=== PATIENT | female | born 1950 | race Caucasian/White ===

== ENCOUNTER → 2017-05-12 10:15 | Outpatient (CLI) | payer MEDICARE, SELFPAY ==
[2017-05-12 13:54] LABS: Hematocrit 39.1 % (37-47); Hemoglobin 12.3 g/dl (12.0-15.0); Mean Corp Hgb Conc 31.5 g/gl (32-36); Mean Corpuscular Hgb 26.5 pg (27.0-32.0); Mean Corpuscular Volume 84.3 fL (81-99); Mean Platelet Vol. 10.5 fl (6.2-12.0); Platelet Count 351 K/mm3 (150-450); RBC Distribution Width CV 15.1 % (11.6-14.6); RBC Distribution Width SD 45.8 fl (35.1-43.9); Red Blood Count 4.64 M/mm3 (4.2-5.4); White Blood Count 6.1 K/mm3 (4.4-11.0)
[2017-05-12 14:02] LABS: Scan Indicated on CBC? Y/N NO
[2017-05-12 14:27] LABS: ALB/GLOB Ratio 0.9 RATIO (0.9-2.4); AST(SGOT) 15 U/L (15-37); Alanine Aminotransfer ALT/SGPT 23 U/L (13-56); Albumin, Serum 3.9 g/dL (3.2-5.0); Alkaline Phosphatase 58 U/L (45-117); Anion Gap 8 (5-15); BUN 17 mg/dL (7-18); BUN/Creat Ratio 18.1 RATIO (10-20); Calcium,Total 10.1 mg/dL (8.5-10.1); Chloride 106 mmol/L (98-107); Cholesterol 153 mg/dL (200); Creatinine, Serum 0.94 mg/dL (0.55-1.02); EST Glomerular Filtration Rate 63 mL/min (>60); Est Glom Filt Rate - Afr Amer 76 mL/min (>60); Globulin 4.3 g/dL (2.2-4.2); Glucose 69 mg/dL (70-110); High Density Lipoprotein 40 mg/dL; Magnesium 2.1 mg/dL (1.6-2.6); Potassium 4.6 mmol/L (3.5-5.1); Protein, Total 8.2 g/dL (6.4-8.2); Sodium Level 139 mmol/L (136-145); Thyroid Stim Hormone (TSH) 1.88 uIU/mL (0.358-3.74); Triglycerides 123 mg/dL; Very Low Density Lipoprotein 25 mg/dL (5-40)
== END ==
PROVIDERS: Family Provider Family Medicine; PCP Family Medicine
DX: Z95.810 Presence of automatic (implantable) cardiac defibrillator (principal); I50.9 Heart failure, unspecified; I48.91 Unspecified atrial fibrillation; I10 Essential (primary) hypertension; I25.9 Chronic ischemic heart disease, unspecified; R06.00 Dyspnea, unspecified
CPT/HCPCS: 36415; 80053; 80061; 83735; 84443; 85027

== ENCOUNTER 2017-05-28 14:32 | Emergency (ER) | payer MEDICARE, SELFPAY ==
[2017-05-28 14:34] VITALS: BP 161/70; PULSE 72; RESP 16; TEMP 36.4; O2SAT 95; BMI 37.3
--- NOTE | 2017-05-28 15:27 | EKG12_ITS ---
Test Reason : NUMB Blood Pressure : / mmHG Vent. Rate : 071 BPM Atrial Rate : 071 BPM P-R Int : 166 ms QRS Dur : 122 ms QT Int : 424 ms P-R-T Axes : 036 -51 083 degrees QTc Int : 460 ms Atrial-sensed ventricular-paced rhythm Biventricular pacemaker detected Abnormal ECG Confirmed by ALEX NUNEZ, MICHAEL ([id number]), technical writer and editor CAROLE LO ([id number]) on 06/01/2017 1:14:09 PM Referred By: DEYA Confirmed By:MICHAEL JOHNSON MD
--- NOTE | 2017-05-28 15:27 | CT_ITS ---
STUDY: CT BRAIN WITHOUT CONTRAST REASON FOR EXAM: Female, 66 years old. Weakness and numbness in left arm RADIATION DOSAGE (If Supplied By Facility): CTDIvol = ( 44.99 ) mGy, DLP = ( 711.75 ) mGycm TECHNIQUE: Transaxial CT imaging of the brain was performed without administration of intravenous contrast material. Individualized dose optimization techniques were used for this CT. COMPARISON: None. FINDINGS: Normal soft tissue structures. Normal calvarium. There is calcification of the cavernous carotids. Normal size ventricles and extra-axial spaces for the patient's age. Mild periventricular white matter ischemic changes. Normal basal ganglia and thalami. Normal brainstem. Normal cerebellum. There is no intracranial hemorrhage. There are no findings of an acute ischemic infarction. There are postsurgical changes of the orbits. Normal visualized paranasal sinuses. CT/Brain/Head without Contrast IMPRESSION: Mild periventricular white matter ischemic change. No evidence for acute bleed. If concern for acute infarct MRI recommended. Electronically Signed: Dl Reyes MD at 16:06 EST , Service support ,
--- NOTE | 2017-05-28 15:47 | ED.DCSUM_ITS ---
- ER Visit Summary Date of Service: 05/28/17 Chief Complaint: Numbness and pain all over History of Present Illness: The patient is a 66 F a history of multiple sclerosis. Patient states she has developed generalized body aches 5 days ago. She denies fever or chills. She does not have URI symptoms. She complains of numbness to her lower lip over the past 5 days that is now spreading to her upper lip. She also complains of numbness to the abdominal wall, left side greater than right. Her left arm feels numb and somewhat weak. She apparently has had similar symptoms with prior MS flares. She called her neurologist at [facility] today and they told her to go to the emergency room. Physical Examination: Vital signs are significant for a blood pressure 161/70, otherwise unremarkable. Patient sitting upright in bed in no acute distress. She is alert and talkative. Head neck examination is grossly unremarkable. Heart is regular rate and rhythm. Lung sounds are clear. Abdomen is soft nontender. Neuro examination significant for decreased sensation to light touch over the right side of her face left arm, and diffusely over the abdominal wall. She has mild weakness noted in the left upper extremity. She has chronic weakness on the right lower extremity. Strong distal pulses are noted throughout. Test Results: CBC and chemistry studies are significant for creatinine 1.33. INR is 2.2. CT head shows mild periventricular white matter ischemic change. No acute bleed. Emergency Department Course and Treatment: Test results were discussed with neurologist on-call for Dr. Hanna, her neurologist. He recommended giving the patient 500 mg Solu-Medrol IV now. They will arrange for the patient to have outpatient infusions of the next couple of days. He did asked that we also obtain a urinalysis. After an extended period of time patient had still not been able to provide a urine sample. Straight cath was performed the patient was discharged home. Urinalysis was positive for infection with positive nitrites, greater than 100 white blood cells, and 4+ bacteria. I called and left a message on the patient's phone to have her call in and notify us of her preferred pharmacy so we can send a prescription. At this time I have not yet heard back from her. I will leave a message with the charge nurse to have the patient recalled tomorrow morning. Treatment Plan: [] Disposition: Discharge Impression: 1. MS exacerbation 2. Cystitis This note was generated with [employer] dictation software. It may contain incorrect words, spelling, and punctuation that were not noted in review of the chart prior to signing ED Disposition - Plan for ED Patient: Disposition: Home or Assisted Living Chief Complaint: Other, Pain/Inj Instructions: Discharge Instructions for Multiple Sclerosis Referrals: Jamie Cruz MD [Primary Care Provider] - Additional Instructions: Your neurologist is arranging for you to have outpatient steriod infusions. They will call you tomorrow.
[2017-05-28 15:50] LABS: Absolute Lymphocyte Count 1.91 X10^3/ul (0.83-4.51); Absolute Neutrophil Count 3.1 X10^3/uL (2.0-7.7); Basophil# 0.02 X10^3/uL; Basophil% 0.3 % (0-1); Eosinophil# 0.14 X10^3/uL; Eosinophils% 2.4 % (0-5); Hemoglobin 11.6 g/dl (12.0-15.0); Lymphocyte # 1.91 X10^3/ul (4.0); Lymphocyte % 32.8 % (19-41); Mean Corp Hgb Conc 31.4 g/gl (32-36); Mean Corpuscular Hgb 26.4 pg (27.0-32.0); Mean Corpuscular Volume 84.3 fL (81-99); Mean Platelet Vol. 9.6 fl (6.2-12.0); Monocyte# 0.64 X10^3/uL; Neutrophil % 53.3 % (47-70); Platelet Count 291 K/mm3 (150-450); RBC Distribution Width SD 46.6 fl (35.1-43.9); Red Blood Count 4.39 M/mm3 (4.2-5.4); White Blood Count 5.8 K/mm3 (4.4-11.0)
[2017-05-28 16:00] LABS: POSITIVE COUNT NO; POSITIVE DIFFERENTIAL NO; POSITIVE MORPHOLOGY NO
[2017-05-28 16:28] LABS: Anion Gap 10 (5-15); BUN 23 mg/dL (7-18); BUN/Creat Ratio 17.3 RATIO (10-20); Calcium,Total 10.1 mg/dL (8.5-10.1); Chloride 108 mmol/L (98-107); Creatinine, Serum 1.33 mg/dL (0.55-1.02); EST Glomerular Filtration Rate 42 mL/min (>60); Est Glom Filt Rate - Afr Amer 51 mL/min (>60); Estimated Creatinine Clearance 32.02 ml/min; Glucose 94 mg/dL (74-106); Potassium 3.9 mmol/L (3.5-5.1); Sodium Level 141 mmol/L (136-145)
[2017-05-28 16:41] LABS: International Normalized Ratio 2.2; Prothrombin Time (Protime)PT. 23.9 SECONDS (11.7-14.9)
[2017-05-28 17:13] VITALS: BP 135/52; PULSE 72; RESP 16; O2SAT 95
--- NOTE | 2017-05-28 19:19 | ED.DEP ---
ED Disposition - Plan for ED Patient: Disposition: Home or Assisted Living Chief Complaint: Other, Pain/Inj Instructions: Discharge Instructions for Multiple Sclerosis Referrals: Jamie Cruz MD [Primary Care Provider] - Additional Instructions: Your neurologist is arranging for you to have outpatient steriod infusions. They will call you tomorrow.
[2017-05-28 19:20] LABS: Color, Urine Yellow (Yellow); Glucose, Dipstick Normal (Normal); Ketone-Dipstick Negative (Negative); Leukocyte Esterase-Dipstick 500 /ul (Negative); Mucous, Urine 0 SEEN /hpf (<or=2+); Nitrite-Dipstick Positive (Negative); Occult Blood-Urine 10 /ul (Negative); Protein-Dipstick Negative (Negative); Red Blood Cells-Urine 0 SEEN /hpf (0-5); Specific Gravity, Urine 1.015 (1.002-1.030); Squamous Epithelial Cells - UA 0 SEEN /hpf (5-10); Urine Bilirubin Dipstick Negative (Negative); Urine Clarity Cloudy (Clear); Urine Urobilinogen Normal (Normal)
[2017-05-28 19:27] VITALS: BP 147/73; PULSE 63; RESP 16
[2017-05-28 19:27] LABS: Bacteria 4+ /hpf (None Seen)
[2017-05-28 19:28] LABS: White Blood Cells >100 SEEN /hpf (0-5)
[2017-05-28 19:29] LABS: Transitional Epithelial - Ur 0-5 SEEN /hpf (0-5)
--- NOTE | 2017-06-01 15:56 | ED.DEP ---
ED Disposition - Plan for ED Patient: Disposition: Home or Assisted Living Chief Complaint: Other, Pain/Inj Instructions: Discharge Instructions for Multiple Sclerosis Prescriptions: Cephalexin [Keflex] 500 mg PO Q6 #40 cap Referrals: Jamie Cruz MD [Primary Care Provider] - Additional Instructions: Your neurologist is arranging for you to have outpatient steriod infusions. They will call you tomorrow.
== END 2017-05-28 19:31 | disposition home or self-care (01) ==
PROVIDERS: Emergency Provider Emergency Medicine; Family Provider Family Medicine; PCP Family Medicine
DX: G35 Multiple sclerosis (principal); N30.90 Cystitis, unspecified without hematuria; B96.89 Other specified bacterial agents as the cause of diseases classified elsewhere; E66.9 Obesity, unspecified; Z68.37 Body mass index [BMI] 37.0-37.9, adult; I25.2 Old myocardial infarction; I10 Essential (primary) hypertension; E78.00 Pure hypercholesterolemia, unspecified; K21.9 Gastro-esophageal reflux disease without esophagitis; Z86.73 Personal history of transient ischemic attack (TIA), and cerebral infarction without residual deficits; Z87.891 Personal history of nicotine dependence; Z79.82 Long term (current) use of aspirin; Z79.01 Long term (current) use of anticoagulants; Z79.899 Other long term (current) drug therapy
CPT/HCPCS: 70450; 80048; 81001; 85025; 85610; 93005; 96365; 96366; 99283; J7050; A4216; J2930

== ENCOUNTER → 2017-06-01 10:56 | Outpatient (CLI) | payer MEDICARE, SELFPAY ==
[2017-06-01 11:14] VITALS: BP 133/63; PULSE 62; RESP 14; TEMP 36.3; O2SAT 95; BMI 37.3
== END ==
PROVIDERS: Family Provider Family Medicine; PCP Family Medicine
DX: G35 Multiple sclerosis (principal)
CPT/HCPCS: 96365; J7050; A4216; J2930

== ENCOUNTER → 2017-06-02 11:51 | Outpatient (CLI) | payer MEDICARE, SELFPAY ==
[2017-06-02 11:52] VITALS: BP 144/64; PULSE 66; RESP 18; TEMP 36.8; O2SAT 97; BMI 37.3
== END ==
PROVIDERS: Family Provider Family Medicine; PCP Family Medicine
DX: G35 Multiple sclerosis (principal)
CPT/HCPCS: 96365; 96366; J7050; A4216; J2930

== ENCOUNTER → 2017-06-03 11:39 | Outpatient (CLI) | payer MEDICARE, SELFPAY ==
[2017-06-03 11:42] VITALS: BP 157/78; PULSE 64; RESP 18; TEMP 37.2; O2SAT 94
== END ==
PROVIDERS: Family Provider Family Medicine; PCP Family Medicine
DX: G35 Multiple sclerosis (principal)
CPT/HCPCS: 96365; J7050; A4216; J2930

== ENCOUNTER → 2017-10-28 10:49 | Outpatient (CLI) | payer MEDICARE, SELFPAY ==
--- NOTE | 2017-10-28 10:50 | NM_ITS ---
CLINICAL: 66-year-old female with reported history of abdominal pain and bloating. RADIONUCLIDE HEPATOBILIARY SCINTIGRAPHY COMPARISON: None available FINDINGS: Following the intravenous administration of 5.2 mCi of 99m Tc Mebrofenin, hepatobiliary images reveal: 1. Relatively prompt and homogeneous radiopharmaceutical concentration is noted by a normal sized liver. No parenchymal defects are identified. 2. Gallbladder activity is identified at 15 minutes post radiopharmaceutical administration. 3. Small intestinal tract is not visualized during 60 minutes of pre-fatty meal sequential image acquisition. Small bowel is defined following meal ingestion. 4. Washout of the radiopharmaceutical by the hepatic parenchyma appears qualitatively normal. The patient was administered a fatty meal (8 ounces BOOST-30 grams fat). The post fatty meal consumption gallbladder ejection fraction calculated at 60 minutes was noted to be 40.0 % (normal greater than 30%). NM/Hepatobilliary Img w/Pharm Int IMPRESSION: 1. NORMAL 99m Tc Mebrofenin hepatobiliary imaging examination with fatty meal ingestion. A. A gallbladder ejection fraction calculated to be greater than 30% following the administration of a consumed fatty meal makes the probability of functional hepatobiliary disease (gallbladder and/or sphincter of Oddi dyskinesia) and/or organic hepatobiliary disease (chronic acalculous cholecystitis and/or cystic duct syndrome) to be low. (Janet and Jim, J Nucl Med 43: 1603, 2002). Electronically Signed: Andre Nicole DO at 11:59 EDT Tel , Service support ,
== END ==
PROVIDERS: Family Provider Family Medicine; PCP Family Medicine; Visit Provider Surgery
DX: R10.11 Right upper quadrant pain (principal)
CPT/HCPCS: 78227; A9537

== ENCOUNTER 2018-07-20 08:43 | Inpatient (IN) | payer MEDICARE, SELFPAY ==
[2018-07-20 08:44] VITALS: BP 167/83; PULSE 68; RESP 20; TEMP 36.8; O2SAT 94; BMI 41.0
--- NOTE | 2018-07-20 08:55 | RAD_ITS ---
STUDY: X-RAY CHEST REASON FOR EXAM: Female, 67 years old. Cough. Confusion. TECHNIQUE: Single AP portable view of the chest. COMPARISON: Comparison is made with prior study dated September 04, 2015. FINDINGS: EKG electrodes are seen. Mild degree of vascular congestion. There is no demonstrated pleural abnormality. Sternal cerclage wires and vascular clips are present from a prior sternotomy and coronary artery bypass graft procedure (CABG). Cardiomegaly. A left-sided dual-chamber pacemaker is seen. Normal mediastinum and judy. Normal visualized pulmonary arteries. There is atherosclerotic tortuosity of the aortic arch and descending thoracic aorta. There is a levoscoliosis of the thoracic spine. Normal visualized ribs, clavicles, and shoulders. There is no demonstrated abnormality of the visualized soft tissue structures of the upper abdomen. RAD/Chest 1 View (Portable) IMPRESSION: Thyromegaly. Mild degree of CHF. Electronically Signed: Timothy Rivera, at 11:05 EDT , Service support ,
--- NOTE | 2018-07-20 08:55 | CT_ITS ---
STUDY: CT BRAIN WITHOUT CONTRAST REASON FOR EXAM: Female, 67 years old. Mental status change. RADIATION DOSAGE (If Supplied By Facility): CTDIvol = ( 44.99 ) mGy, DLP = ( 728.62 ) mGycm TECHNIQUE: Transaxial CT imaging of the brain was performed without administration of intravenous contrast material. Individualized dose optimization techniques were used for this CT. COMPARISON: Comparison is made with prior study of May 28, 2017. FINDINGS: Normal soft tissue structures. There is hyperostosis frontalis internus. There is mild cerebral atrophy with widening of the extra-axial spaces and ventricular dilatation. Normal white matter tracts of the cerebral hemispheres. Normal basal ganglia and thalami. Normal brainstem. Normal cerebellum. There is no intracranial hemorrhage. There are no findings of an acute ischemic infarction. Atherosclerotic ossification of the vertebral arteries and cavernous portions of the internal carotid arteries bilaterally. Normal visualized paranasal sinuses. CT/Brain/Head without Contrast IMPRESSION: Chronic involutional changes of the brain. Electronically Signed: Timothy Rivera, at 11:04 EDT , Service support ,
--- NOTE | 2018-07-20 08:55 | EKG12_ITS ---
Test Reason : NEURO S/SX Blood Pressure : / mmHG Vent. Rate : 066 BPM Atrial Rate : 066 BPM P-R Int : 156 ms QRS Dur : 152 ms QT Int : 466 ms P-R-T Axes : 056 184 085 degrees QTc Int : 488 ms Atrial-sensed ventricular-paced rhythm Biventricular pacemaker detected Abnormal ECG Confirmed by AZUL NUNEZ, ASHLEY ([id number]), news videotape editor CAROLE LO ([id number]) on 07/26/2018 4:14:59 PM Referred By: Don Mcqueen Confirmed By:ASHLEY LIANG MD
--- NOTE | 2018-07-20 08:59 | ED.VISSUMM ---
- ER Visit Summary Date of Service: 07/20/18 Chief Complaint: Mental status changes History of Present Illness: The patient is a 67 F who presents with mental status changes prior to arrival. This started early this morning when she woke up. Patient is seen at 9 AM. She is brought in by her as well as her daughter. She has a history of multiple sclerosis, bladder incontinence and other MS sequelae. She has weakness in her right leg chronically. Apparently this morning she woke up did not recognize her , is perseverating on someone helping her, and per she is not herself. There is no new weakness. Apparently the patient continues to says that she is numb everywhere. There is no reported fevers. There is no recent diarrhea or vomiting. Per family she has not been complaining of any pain recently. Physical Examination: On exam she is alert to person only which is a new finding, she has rhinorrhea and upper airway congestion, she has coarse bilateral breath sounds, she is got a soft and nontender abdomen, regular rate without a murmur. She has slight bilateral lower extremity edema. Emergency Department Course and Treatment: Patient is found to have a slight urinary tract infection, antibiotics were started. I discussed the patient with Dr. Hanna her neurologist from [facility]. At this time he would not recommend steroids, I also discussed the patient with Dr. Burkett, our neurologist who will be on board if patient needs neurological care. At this time with the confusion this may be delirium and no further treatment will be needed, however there is a possibility the patient will need high-dose steroids for an MS flare. Disposition: Admit to hospital in stable condition Impression: Multiple this UTI This note was generated with [employer] dictation software. It may contain incorrect words, spelling, and punctuation that were not noted in review of the chart prior to signing ED Disposition - Plan for ED Patient: Referrals: Jamie Cruz MD [Primary Care Provider] -
[2018-07-20 09:01] VITALS: BP 174/87; PULSE 74; RESP 18; O2SAT 94
--- NOTE | 2018-07-20 09:02 | ED.DCSUM_ITS ---
- ER Visit Summary Date of Service: 07/20/18 Chief Complaint: Mental status changes History of Present Illness: The patient is a 67 F who presents with mental status changes prior to arrival. This started early this morning when she woke up. Patient is seen at 9 AM. She is brought in by her as well as her daughter. She has a history of multiple sclerosis, bladder incontinence and other MS sequelae. She has weakness in her right leg chronically. Apparently this morning she woke up did not recognize her , is perseverating on someone helping her, and per she is not herself. There is no new weakness. Apparently the patient continues to says that she is numb everywhere. There is no reported fevers. There is no recent diarrhea or vomiting. Per family she has not been complaining of any pain recently. Physical Examination: On exam she is alert to person only which is a new finding, she has rhinorrhea and upper airway congestion, she has coarse bilateral breath sounds, she is got a soft and nontender abdomen, regular rate without a murmur. She has slight bilateral lower extremity edema. Emergency Department Course and Treatment: Patient is found to have a slight urinary tract infection, antibiotics were started. I discussed the patient with Dr. Hanna her neurologist from [facility]. At this time he would not recommend steroids, I also discussed the patient with Dr. Burkett, our neurologist who will be on board if patient needs neurological care. At this time with the confusion this may be delirium and no further treatment will be needed, however there is a possibility the patient will need high-dose steroids for an MS flare. Disposition: Admit to hospital in stable condition Impression: Multiple this UTI This note was generated with [facility] dictation software. It may contain incorrect words, spelling, and punctuation that were not noted in review of the chart prior to signing ED Disposition - Plan for ED Patient: Referrals: Jamie Cruz MD [Primary Care Provider] -
[2018-07-20 09:05] LABS: Bedside Glucose 108 mg/dL (70-110)
[2018-07-20 10:00] LABS: Absolute Lymphocyte Count 1.36 X10^3/ul (0.83-4.51); Absolute Neutrophil Count 3.6 X10^3/uL (2.0-7.7); Basophil# 0.02 X10^3/uL; Basophil% 0.3 % (0-1); Eosinophil# 0.14 X10^3/uL; Eosinophils% 2.4 % (0-5); Hematocrit 38.9 % (37-47); Lymphocyte # 1.36 X10^3/ul (4.0); Lymphocyte % 23.7 % (19-41); Mean Corp Hgb Conc 30.8 g/gl (32-36); Mean Corpuscular Volume 84.4 fL (81-99); Mean Platelet Vol. 9.8 fl (6.2-12.0); Monocyte# 0.62 X10^3/uL; Monocyte% 10.8 % (0-10); Neutrophil # 3.59 X10^3/uL (2.7-7.7); Neutrophil % 62.6 % (47-70); Platelet Count 260 K/mm3 (150-450); RBC Distribution Width CV 14.8 % (11.6-14.6); RBC Distribution Width SD 45.6 fl (35.1-43.9); Red Blood Count 4.61 M/mm3 (4.2-5.4); White Blood Count 5.7 K/mm3 (4.4-11.0)
[2018-07-20 10:01] LABS: POSITIVE COUNT NO; POSITIVE DIFFERENTIAL NO; POSITIVE MORPHOLOGY NO
[2018-07-20 10:14] LABS: AST(SGOT) 22 U/L (15-37); Alanine Aminotransfer ALT/SGPT 31 U/L (13-56); Albumin, Serum 3.8 g/dL (3.2-5.0); Alkaline Phosphatase 60 U/L (45-117); Anion Gap 5 (5-15); BUN 20 mg/dL (7-18); Calcium,Total 9.7 mg/dL (8.5-10.1); Chloride 109 mmol/L (98-107); Creatinine, Serum 0.95 mg/dL (0.55-1.02); EST Glomerular Filtration Rate 62 mL/min (>60); Est Glom Filt Rate - Afr Amer 75 mL/min (>60); Globulin 3.9 g/dL (2.2-4.2); Glucose 107 mg/dL (74-106); Protein, Total 7.7 g/dL (6.4-8.2); Sodium Level 139 mmol/L (136-145)
[2018-07-20 10:21] LABS: Mucous, Urine 0 SEEN /hpf (<or=2+); Red Blood Cells-Urine 0 SEEN /hpf (0-5)
[2018-07-20 10:24] LABS: Lactic Acid 1.4 mmol/L (0.4-2.0)
[2018-07-20 10:28] LABS: Color, Urine Yellow (Yellow); Glucose, Dipstick Normal (Normal); Ketone-Dipstick Negative (Negative); Leukocyte Esterase-Dipstick 100 /ul (Negative); Nitrite-Dipstick Positive (Negative); Occult Blood-Urine Negative /ul (Negative); Protein-Dipstick Negative (Negative); Specific Gravity, Urine 1.015 (1.002-1.030); Urine Bilirubin Dipstick Negative (Negative); Urine Clarity Clear (Clear); Urine Urobilinogen Normal (Normal)
[2018-07-20 10:36] LABS: Bacteria 4+ /hpf (None Seen); Squamous Epithelial Cells - UA 0-5 SEEN /hpf (5-10); White Blood Cells 5-10 SEEN /hpf (0-5)
[2018-07-20 10:58] VITALS: BP 167/85; PULSE 61; RESP 19; O2SAT 95
[2018-07-20] MEDS: Ceftriaxone 1 GM/50 ML BAG IV (12:13)
[2018-07-20 12:14] VITALS: BP 172/73; PULSE 60; RESP 16; O2SAT 93
[2018-07-20 13:02] VITALS: BMI 40.1; BMI 40.2
[2018-07-20] MEDS: Pantoprazole Sodium 40 MG Tablet PO (14:24)
[2018-07-20] MEDS: Fenofibrate 145 MG Tablet PO (14:24)
[2018-07-20] MEDS: Losartan Potassium 50 MG Tablet PO (14:24)
[2018-07-20] MEDS: Baclofen 10 MG Tablet 20 MG PO (14:25)
[2018-07-20] MEDS: Carvedilol 12.5 MG Tablet PO ×2 (14:25→21:44)
[2018-07-20 14:27] VITALS: BP 159/77; PULSE 65; RESP 16; TEMP 36.5; O2SAT 95
[2018-07-20] MEDS: Gabapentin 600 MG Tablet PO (17:46)
[2018-07-20] MEDS: Magnesium Oxide 400 MG Tablet PO (17:47)
[2018-07-20] MEDS: Sucralfate 1 GM Tablet PO ×2 (17:47→21:44)
--- NOTE | 2018-07-20 18:20 | PCM.HP.STD ---
Problem List (1) Delirium Status: Acute (2) UTI (urinary tract infection) Status: Acute (3) Multiple sclerosis Status: Chronic (4) Morbid obesity Status: Chronic (5) HTN (hypertension) Status: Chronic (6) CAD (coronary artery disease) Status: Chronic Qualifiers: Coronary Disease-Associated Artery/Lesion type: [place] artery (7) S/P CABG x 2 Status: Chronic (8) GERD (gastroesophageal reflux disease) Status: Chronic (9) HLD (hyperlipidemia) Status: Chronic (10) REBECCA (obstructive sleep apnea) Status: Chronic Comment: Compliant with CPAP (11) Pacemaker Status: Chronic (12) Urine retention Status: Chronic Comment: off an on...has self cath'd in the past (13) Chronic anticoagulation Status: Chronic Comment: Eliquis (14) DVT of lower extremity (deep venous thrombosis) Status: Resolved Comment: On chronic anticoagulation with Eliquis (15) IBS (irritable bowel syndrome) Status: Chronic History of Present Illness Date of Admission: 07/20/18 Chief Complaint: confusion and inability to ambulate due to BL LE weakness The patient is a 67 year old F with a past medical history of hypertension, coronary artery disease with history of CABG x2 vessels, GERD, multiple sclerosis, morbid obesity, 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 She was unable to ambulate today due to leg weakness and she is normally able to do this. She later became alert, appropriate and oriented x3. She denies fever, chills, dysuria, cough, nausea, vomiting, abdominal pain, diarrhea. She tells me she has not had difficulty with urine retention recently and has not had to self catheterize. She does not believe she mistakenly took extra medication. Vital signs at presentation to the emergency room were temp 98.3, pulse rate 68, blood pressure 167/83, respiratory rate 20 and a pulse ox was 94% on room air. White blood cell count was 5.7 with an unremarkable differential. Hemoglobin and platelets were within normal limits. BMP showed an elevated BUN of 20 with a creatinine of 0.95. She is on Lasix and Aldactone as an outpatient and possibly has some element of chronic congestive heart failure. LFTs are normal. A urine obtained by straight cath showed 5-10 white blood cells per high-power field with 4+ bacteria. It was nitrite positive. Blood cultures were drawn in the emergency room and the urine was sent for culture. A CT scan of the brain showed no acute findings. Chest x-ray showed no infiltrates but did show increased pulmonary vascular congestion. The radiologist also felt she had thyromegaly. She is being admitted to the hospital with acute delirium, possibly due to UTI, UTI and possible exacerbation MS. Past Medical History Past Medical History (Chronic Problems): Chronic Problems (Last Reviewed 07/20/18 @ 18:42 by Don Mcqueen DO) Multiple sclerosis (Chronic) Morbid obesity (Chronic) HTN (hypertension) (Chronic) CAD (coronary artery disease) (Chronic) S/P CABG x 2 (Chronic) GERD (gastroesophageal reflux disease) (Chronic) HLD (hyperlipidemia) (Chronic) REBECCA (obstructive sleep apnea) (Chronic) Compliant with CPAP Pacemaker (Chronic) Urine retention (Chronic) off an on...has self cath'd in the past Chronic anticoagulation (Chronic) Eliquis IBS (irritable bowel syndrome) (Chronic) Medical History: Medical History (Last Reviewed 07/20/18 @ 18:42 by Don Mcqueen DO) Back pain M54.9 CAD (coronary artery disease) I25.10 Cardiac pacemaker Z95.0 DVT (deep venous thrombosis) I82.409 GERD (gastroesophageal reflux disease) K21.9 Hyperlipidemia E78.5 Iron deficiency anemia D50.9 Multiple sclerosis G35 Neuropathic pain M79.2 REBECCA (obstructive sleep apnea) G47.33 Pulmonary embolism I26.99 RUQ pain R10.11 Vitamin D deficiency E55.9 Hypertension I10 Allergies glatiramer (copolymer 1) [From Copaxone] Allergy (Verified 07/20/18 08:46) Itching itching and redness surrounding injection site Home Medications: Ambulatory Orders Medication Instructions Recorded Apixaban [Eliquis] 5 mg PO BID 07/20/18 Aspirin [Aspirin, Baby] 81 mg PO DAILY@0800 07/20/18 Baclofen 2 tab PO QHS 07/20/18 Baclofen 20 mg PO BID 07/20/18 Carvedilol [Coreg] 12.5 mg PO BID 07/20/18 Cholecalciferol (Vitamin D3) 2,000 unit PO DAILY 07/20/18 [Vitamin D3] Fenofibrate [Tricor] 145 mg PO DAILY 07/20/18 Ferrous Sulfate 325 mg PO DAILY 07/20/18 Furosemide [Lasix] 40 mg PO MOWEFR 07/20/18 Gabapentin [Neurontin] 600 mg PO TIDCM 07/20/18 Linaclotide [Linzess] 72 mcg PO DAILY PRN 07/20/18 Losartan Potassium [Cozaar] 50 mg PO DAILY 07/20/18 Magnesium Oxide [Mag-Ox 400] 400 mg PO BID 07/20/18 Multivitamin [Multivitamins] 1 each PO DAILY 07/20/18 Pantoprazole Sodium [Protonix] 40 mg PO DAILY 07/20/18 Pravastatin Sodium 20 mg PO QHS 07/20/18 Rebif Injection 5 mg MOWEFR 07/20/18 Spironolactone 25 mg PO QHS 07/20/18 Sucralfate 1 gm PO QHS 07/20/18 Sucralfate 1 gm PO TIDCM 07/20/18 Surgical History: Surgical History (Last Reviewed 07/20/18 @ 18:42 by Don Mcqueen DO) History of appendectomy Z90.49 History of carpal tunnel release Z98.890 history double bypass cardiac surgery Surgical History: coronary bypass surgery, hysterectomy - with BL oophorectomy in her 20's for an ovarian mass., pacemaker implantation, rotator cuff repair - Right shoulder, - Psychiatric History: No pertinent psych hx 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 Lives: With Family Smoking Status: Former smoker - She quit smoking in her 30s when she was diagnosed with multiple sclerosis Tobacco Use: Non-smoker Alcohol: Occasional Drugs: None - *Family History Maternal Family History: Family History (Last Reviewed 07/20/18 @ 18:46 by Don Mcqueen DO) Mother Diabetes Father Cancer Brother Cancer Sibling Family History: Family History (Last Reviewed 07/20/18 @ 18:46 by Don Mcqueen DO) Mother Diabetes Father Cancer Brother Cancer History Items: Diabetes, Heart Disease, Hypertension, - - Uterine cancer in her sister Review of Systems Constitutional: Reports: Weakness - In her legs. Denies: Chills, Fever, Weight Change Eyes: Denies: Blurred vision, Drainage, Redness HEENT: Denies: Difficulty Swallowing, Head Aches, Sinus Congestion, Sinus Drainage, Sore Throat Cardiovascular: Reports: Edema. Denies: Chest Pain, Light Headedness, Palpitations Respiratory: Denies: Cough, Shortness of breath at rest, Sputum production, Wheezing Gastrointestinal: Denies: Abdominal Pain, Constipation, Diarrhea, Nausea, Vomiting Genitourinary: Reports: Retention. Denies: Dysuria, Frequency, Hematuria, Hesitancy Gynecological: Denies: Vaginal discharge, Vaginal itching Musculoskeletal: Denies: Joint Pain, Joint Tenderness Skin: Denies: Jaundice, Rash, Wounds Neurological: Denies: Focal weakness, Numbness, Tingling, Tremor, Seizures Psychiatric: Denies: Anxiety, Depression, Homicidal Ideations, Suicidal Ideations Endocrine: Denies: Hx of Thyroiditis Hematologic/ Lymphatic: Reports: Hx of blood clot. Denies: Easy Bruising, Easy Bleeding VTE Information - Inpt Only VTE Present on Admission: No VTE Mechan Device Prophylaxis: SCD's, Knee High NETTIE Hose VTE Pharm Prophylaxis ordered?: Yes Patient Problems: Active and Suspected Problems (Last Reviewed 07/20/18 @ 18:42 by Don Mcqueen DO) Delirium (Acute) UTI (urinary tract infection) (Acute) - Physical Exam General: Alert, Oriented x3, Cooperative, No apparent distress, Well developed, Well nourished HEENT: Atraumatic, PERRLA, EOMI, Normocephalic Oral: Dry Mucosa Neck: Supple, Negative Carotid Bruits, No Nodes, No Nuchal Rigidity, Trachea Midline, JVD, Bilateral Lungs: Clear to auscultation - anterior and lateral......too weak to lean forward in bed for me or to sit on the edge of the bed, Normal air movement Cardiovascular: Regular rate, Regular Rhythm, No murmurs, Murmur - 1/6 to 2/6 systolic ejection murmur heard at the second right intercostal space with radiation to the left ventricular outflow track, No rub noted, No Gallop Abdomen: Bowel Sounds Present, Soft, Non Tender, Distended - mildly and a little tympanic, Obese Extremities: No edema, Capillary Refill Less than 3 Seconds Skin: No rashes, No breakdown Musculoskeletal: No Tenderness to Palpation of Joints or Extremities Neurological: Cranial nerves II-XII grossly intact Psych/Mental Status: Normal Affect, Appropriate Vital Signs Temp Pulse Resp BP Pulse Ox 97.7 F L 65 16 159/77 H 95 07/20/18 14:27 07/20/18 14:27 07/20/18 14:27 07/20/18 14:27 07/20/18 14:27 Oxygen Delivery Method Room Air Weight: 219 lb 12.814 oz Body Mass Index (BMI) 40.1 Finger Stick Blood Glucose 108 Laboratory Tests Past 24 Hrs 07/20/18 07/20/18 07/20/18 09:45 09:45 09:45 WBC 5.7 RBC 4.61 Hgb 12.0 Hct 38.9 MCV 84.4 MCH 26.0 L MCHC 30.8 L RDW 14.8 H RDW Differential 45.6 H Plt Count 260 MPV 9.8 Immature Gran % (Auto) 0.200 Neut % (Auto) 62.6 Lymph % (Auto) 23.7 Boyd % (Auto) 10.8 H Eos % (Auto) 2.4 Baso % (Auto) 0.3 Absolute Neuts (auto) 3.6 Absolute Lymphs (auto) 1.36 Total Counted Not Reportable Sodium 139 Potassium 4.0 Chloride 109 H Carbon Dioxide 25.0 Anion Gap 5 BUN 20 H Creatinine 0.95 Estim Creat Clear Calc 44.20 Est GFR (MDRD) Af Amer 75 Est GFR (MDRD) Non-Af 62 BUN/Creatinine Ratio 21.0 H Glucose 107 H Lactic Acid 1.4 Calcium 9.7 Total Bilirubin 0.30 AST 22 ALT 31 Alkaline Phosphatase 60 Troponin I 0.027 Total Protein 7.7 Albumin 3.8 Globulin 3.9 Albumin/Globulin Ratio 1.0 Urine Color Urine Clarity Urine pH Ur Specific [place] Urine Protein Urine Glucose (UA) Urine Ketones Urine Occult Blood Urine Nitrite Urine Bilirubin Urine Urobilinogen Ur Leukocyte Esterase Urine RBC Urine WBC Ur Squamous Epith Cells Urine Bacteria Urine Mucus 07/20/18 10:10 WBC RBC Hgb Hct MCV MCH MCHC RDW RDW Differential Plt Count MPV Immature Gran % (Auto) Neut % (Auto) Lymph % (Auto) Boyd % (Auto) Eos % (Auto) Baso % (Auto) Absolute Neuts (auto) Absolute Lymphs (auto) Total Counted Sodium Potassium Chloride Carbon Dioxide Anion Gap BUN Creatinine Estim Creat Clear Calc Est GFR (MDRD) Af Amer Est GFR (MDRD) Non-Af BUN/Creatinine Ratio Glucose Lactic Acid Calcium Total Bilirubin AST ALT Alkaline Phosphatase Troponin I Total Protein Albumin Globulin Albumin/Globulin Ratio Urine Color Yellow Urine Clarity Clear Urine pH 6.0 Ur Specific [place] 1.015 Urine Protein Negative Urine Glucose (UA) Normal Urine Ketones Negative Urine Occult Blood Negative Urine Nitrite Positive H Urine Bilirubin Negative Urine Urobilinogen Normal Ur Leukocyte Esterase 100 H Urine RBC 0 SEEN Urine WBC 5-10 SEEN Ur Squamous Epith Cells 0-5 SEEN Urine Bacteria 4+ Urine Mucus 0 SEEN POC Glucose 07/20/18 09:02 POC Glucose 108 Assessment/Plan All Active Problems (Last Reviewed 07/20/18 @ 18:42 by Don Mcqueen DO) Delirium (Acute) UTI (urinary tract infection) (Acute) DVT of lower extremity (deep venous thrombosis) (Resolved) Impressions 1. Acute delirium-possibly secondary to urinary tract infection 2. UTI-possibly related to urine retention unrecognized by the patient 3. Urine retention-unable to urinate today while in the hospital and has had to be straight cathed a few times. Urine retention has been intermittent in the past depending on disease activity of multiple sclerosis 4. Multiple sclerosis with possible exacerbation secondary to infection 5. Coronary artery disease with history of CABG x2 vessels 6. Pacemaker implantation 7. REBECCA-compliant with CPAP 8. Hypertension 9. Hyperlipidemia 10. Former smoker-quit greater than 30 years ago 11. GERD 12. History of VT E with deep vein thrombosis of the legs and pulmonary emboli 13. Chronic anticoagulation with Eliquis 14. Congestive heart failure Urine and blood cultures X 2 Straight cath as needed or Place Quezada catheter if the patient desires Bladder scan for urine residual Recheck the lab in the AM Start Rocephin 1 g IV daily We will follow up with Dr. Hines in the office once discharged Hold the IV Lasix and order 40 mg Lasix IV BID BNP ordered Serial cardiac enzymes Consult Dr. Burkett to participate in management for multiple sclerosis PT/OT consults She will have her daughter bring in her medication for MS which she takes on MWF Code Visit Inpatient E&M: 39034 Init Hosp L3
--- NOTE | 2018-07-20 19:59 | NURSING ---
lab aware of new orders for cardiac enzymes
[2018-07-20] MEDS: Furosemide 40 MG/4 ML Vial IV (20:00)
[2018-07-20 20:06] LABS: Thyroid Stim Hormone (TSH) 1.47 uIU/mL (0.358-3.74)
[2018-07-20 20:26] LABS: BNP,B-Type NATRIURETIC PEPTIDE 54.4 pg/mL (0-100)
[2018-07-20 21:31] VITALS: BP 151/86; PULSE 76; RESP 16; TEMP 36.3; O2SAT 95
[2018-07-20] MEDS: Baclofen 10 MG Tablet 40 MG PO (21:44)
[2018-07-20] MEDS: Spironolactone 25 MG Tablet PO (21:44)
[2018-07-20] MEDS: Pravastatin 20 MG Tablet PO (21:44)
[2018-07-20] MEDS: APIXABAN 5 MG TABLET PO (21:44)
[2018-07-21 02:11] VITALS: BP 141/71; PULSE 75; RESP 18; TEMP 36.6; O2SAT 95
[2018-07-21 02:17] LABS: Absolute Neutrophil Count 3.6 X10^3/uL (2.0-7.7); Basophil# 0.03 X10^3/uL; Basophil% 0.4 % (0-1); Eosinophil# 0.07 X10^3/uL; Hematocrit 38.5 % (37-47); Hemoglobin 12.3 g/dl (12.0-15.0); Lymphocyte % 38.6 % (19-41); Mean Corp Hgb Conc 31.9 g/gl (32-36); Mean Corpuscular Hgb 26.2 pg (27.0-32.0); Mean Corpuscular Volume 81.9 fL (81-99); Mean Platelet Vol. 10.3 fl (6.2-12.0); Monocyte# 0.74 X10^3/uL; Monocyte% 10.2 % (0-10); Neutrophil % 49.7 % (47-70); POSITIVE COUNT NO; POSITIVE DIFFERENTIAL NO; POSITIVE MORPHOLOGY NO; Platelet Count 295 K/mm3 (150-450); RBC Distribution Width CV 14.7 % (11.6-14.6); RBC Distribution Width SD 43.9 fl (35.1-43.9); White Blood Count 7.3 K/mm3 (4.4-11.0)
[2018-07-21 02:50] LABS: BUN 18 mg/dL (7-18); BUN/Creat Ratio 17.5 RATIO (10-20); Calcium,Total 9.7 mg/dL (8.5-10.1); Cholesterol 141 mg/dL (200); Creatinine, Serum 1.03 mg/dL (0.55-1.02); EST Glomerular Filtration Rate 56 mL/min (>60); Est Glom Filt Rate - Afr Amer 68 mL/min (>60); Estimated Creatinine Clearance 40.77 ml/min; Glucose 104 mg/dL (74-106); Magnesium 2.2 mg/dL (1.6-2.6); Phosphorus 2.7 mg/dL (2.5-4.9); Sodium Level 139 mmol/L (136-145); Triglycerides 235 mg/dL
[2018-07-21 02:51] LABS: Anion Gap 5 (5-15); Chloride 108 mmol/L (98-107); High Density Lipoprotein 29 mg/dL; Potassium 3.5 mmol/L (3.5-5.1); Very Low Density Lipoprotein 47 mg/dL (5-40)
--- NOTE | 2018-07-21 05:55 | ECHOCS_ITS ---
Reason For Study: CHF Procedure This was a 2D Doppler, Color Flow transthoracic echocardiogram. The study was technically difficult. Contrast injection was performed. Exam performed portable in patient room. Left Ventricle Mildly dilated left ventricle. The estimated ejection fraction is 55 %. Septal motion consistent with IVCD. Stage 1 diastolic dysfunction. No regional wall motion abnormalities noted. Right Ventricle Normal size and thickness. Normal systolic function. Atria Normal left atrium. Normal right atrium. Normal atrial septum. Mitral Valve The mitral valve is structurally normal. No prolapse or stenosis seen. Tricuspid Valve Normal tricuspid valve. Trivial tricuspid valve insufficiency. Right ventricular systolic pressure estimated to be 19 mmHg. Aortic Valve Trisinus/trileaflet aortic valve. Pulmonic Valve Normal pulmonic valve. Great Vessels Normal aortic root. Normal arch. Normal inferior vena cava. Inferior vena cava collapse with sniff. Pericardium/Pleural No pericardial effusion. Medication Definity0.5ml given slow IV push to enhance endocardial definition. MMode/2D Measurements & Calculations LVIDd: 5.2 cm IVSd: 1.0 cm Ao root diam: 2.9 cm LVIDs: 4.0 cm LVPWd: 1.1 cm FS: 24.6 % LAV(MOD-bp): 27.0 ml LA A4 area: 12.8 cm2 LA dimension(2D): 4.2 cm LAV(MOD-bp) Indexed: 13.6 ml/m2 LAV(MOD-sp2): 23.7 ml LAV(MOD-sp4): 29.7 ml Doppler Measurements & Calculations MV E max redd: 43.3 cm/sec Lat Peak E' Redd: 7.0 cm/sec Med Peak E' Redd: 4.6 cm/sec MV A max redd: 71.0 cm/sec E/E' lat: 6.2 E/E' med: 9.3 MV E/A: 0.61 Ao V2 max: 83.5 cm/sec LV V1 max: 78.4 cm/sec PA V2 max: 83.5 cm/sec Ao max P.8 mmHg LV V1 max P.5 mmHg Ao V2 mean: 60.0 cm/sec Ao mean P.6 mmHg Ao V2 VTI: 15.6 cm Interpretation Summary Mildly dilated left ventricle. The estimated ejection fraction is 55 %. Stage 1 diastolic dysfunction. Right ventricular systolic pressure estimated to be 19 mmHg. The study was technically limited. Contrast injection was performed. Ordering Physician: Yesenia Mcqueen Referring Physician: Jamie Cruz Performed By: Michelle Butler RDCS, RVT
[2018-07-21] MEDS: Pantoprazole Sodium 40 MG Tablet PO (06:28)
[2018-07-21] MEDS: Baclofen 10 MG Tablet 20 MG PO ×2 (06:29→13:40)
[2018-07-21] MEDS: Sucralfate 1 GM Tablet PO ×4 (06:29→21:32)
[2018-07-21 08:18] VITALS: BP 147/78; PULSE 65; RESP 18; TEMP 36.9; O2SAT 95
[2018-07-21] MEDS: Gabapentin 600 MG Tablet PO ×3 (08:20→16:07)
[2018-07-21] MEDS: Multivitamins,Therapeutic Tablet 1 TABLET PO (08:20)
[2018-07-21] MEDS: Fenofibrate 145 MG Tablet PO (08:20)
[2018-07-21] MEDS: Magnesium Oxide 400 MG Tablet PO ×2 (08:20→16:07)
[2018-07-21] MEDS: Aspirin 81 MG TAB.CHEW PO (08:20)
[2018-07-21] MEDS: Losartan Potassium 50 MG Tablet PO (08:21)
[2018-07-21] MEDS: Carvedilol 12.5 MG Tablet PO ×2 (08:21→21:32)
[2018-07-21] MEDS: Furosemide 40 MG/4 ML Vial IV ×2 (08:22→17:53)
[2018-07-21] MEDS: APIXABAN 5 MG TABLET PO ×2 (08:22→21:32)
--- NOTE | 2018-07-21 08:28 | NURSING ---
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
[2018-07-21] MEDS: Ceftriaxone 1 GM/50 ML BAG IV (09:17)
--- NOTE | 2018-07-21 09:30 | PCM.PROGNOTE ---
Patient Problems: Active and Suspected Problems (Last Reviewed 07/21/18 @ 10:07 by Luiz Burkett MD) Delirium (Acute) UTI (urinary tract infection) (Acute) Subjective: Day #2 Rocephin for urinary tract infection Patient is a 67-year-old female with a history of multiple sclerosis who was admitted to the hospital with acute delirium and urinary tract infection. She complained of increased weakness in her legs. [place] catheter was inserted yesterday after she had been straight cathed a few times for urine retention. All events of the past 24 hours of been reviewed. Afebrile since admission Vital signs stable, 95% on room air Fluid balance since admission is -663. 1 of 2 blood cultures is growing gram-positive cocci in clusters All lab was personally reviewed. White blood cell count is 7.3 today with an unremarkable differential. Hemoglobin and platelets are within normal limits. Creatinine has increased from 0.95-1.03. Mag and phosphorus are within normal limits. Potassium is 3.5. Cardiac enzymes were negative. Triglycerides are elevated at 235 and the LDL is 65 with an HDL of 29. TSH was normal. I reviewed the nursing notes. Patient refuses to turn and reposition. She continues to have weakness in her lower extremities but the upper extremities have improved. She is alert and oriented to person place but unable to recall the year and month. She is incontinent of stool. for me she was alert and oriented X 3 and was able to tell me the month and the years but, did not know the day of the week. She still is c/o weak legs. Admits to being incontinent of both stool and urine. She has not straight cathed herself in many years. Objective: - Physical Exam General: Alert, Oriented x3, Cooperative, No apparent distress, Well developed, Well nourished HEENT: Atraumatic, PERRLA, EOMI, Normocephalic, no facial asymmetry Oral: Dry Mucosa Neck: Supple, Negative Carotid Bruits, No Nodes, No Nuchal Rigidity, Trachea Midline, JVD, Bilateral Lungs: Clear to auscultation - anterior and lateral......too weak to lean forward in bed for me or to sit on the edge of the bed, Normal air movement Cardiovascular: Regular rate, Regular Rhythm, No murmurs, Murmur - 1/6 to 2/6 systolic ejection murmur heard at the second right intercostal space with radiation to the left ventricular outflow track, No rub noted, No Gallop Abdomen: Bowel Sounds Present, Soft, Non Tender, Distended - mildly and a little tympanic, Obese Extremities: No edema, Capillary Refill Less than 3 Seconds Skin: No rashes, No breakdown Musculoskeletal: No Tenderness to Palpation of Joints or Extremities Neurological: Cranial nerves II-XII grossly intact, 1/5 strength in the LE's and 4/5 strength in the UE's Psych/Mental Status: Normal Affect, Appropriate - Physical Exam Vital Signs Temp Pulse Resp BP Pulse Ox 98.4 F 65 18 147/78 H 95 07/21/18 08:18 07/21/18 08:18 07/21/18 08:18 07/21/18 08:18 07/21/18 08:18 Oxygen Delivery Method Room Air Weight: 219 lb 12.814 oz Body Mass Index (BMI) 40.1 Finger Stick Blood Glucose 108 Intake and Output for Last 24 Hours 07/19/18 07/20/18 07/21/18 23:59 23:59 23:59 Intake Total 1062 / 1062 Output Total 1725 / 1725 Balance -663 / -663 Microbiology Past 72 Hours 07/20/18 09:45 Blood Culture - Preliminary Blood Culture (Wb) - Anticubital Right Laboratory Tests Past 24 Hrs 07/20/18 07/20/18 07/20/18 09:45 09:45 09:45 WBC 5.7 RBC 4.61 Hgb 12.0 Hct 38.9 MCV 84.4 MCH 26.0 L MCHC 30.8 L RDW 14.8 H RDW Differential 45.6 H Plt Count 260 MPV 9.8 Immature Gran % (Auto) 0.200 Neut % (Auto) 62.6 Lymph % (Auto) 23.7 [place] % (Auto) 10.8 H Eos % (Auto) 2.4 Baso % (Auto) 0.3 Absolute Neuts (auto) 3.6 Absolute Lymphs (auto) 1.36 Total Counted Not Reportable Sodium 139 Potassium 4.0 Chloride 109 H Carbon Dioxide 25.0 Anion Gap 5 BUN 20 H Creatinine 0.95 Estim Creat Clear Calc 44.20 Est GFR (MDRD) Af Amer 75 Est GFR (MDRD) Non-Af 62 BUN/Creatinine Ratio 21.0 H Glucose 107 H Lactic Acid 1.4 Calcium 9.7 Phosphorus Magnesium Total Bilirubin 0.30 AST 22 ALT 31 Alkaline Phosphatase 60 Troponin I 0.027 B-Natriuretic Peptide Total Protein 7.7 Albumin 3.8 Globulin 3.9 Albumin/Globulin Ratio 1.0 Triglycerides Cholesterol LDL Cholesterol VLDL Cholesterol HDL Cholesterol TSH Urine Color Urine Clarity Urine pH Ur Specific [place] Urine Protein Urine Glucose (UA) Urine Ketones Urine Occult Blood Urine Nitrite Urine Bilirubin Urine Urobilinogen Ur Leukocyte Esterase Urine RBC Urine WBC Ur Squamous Epith Cells Urine Bacteria Urine Mucus 07/20/18 07/20/18 07/20/18 09:45 09:45 10:10 WBC RBC Hgb Hct MCV MCH MCHC RDW RDW Differential Plt Count MPV Immature Gran % (Auto) Neut % (Auto) Lymph % (Auto) [place] % (Auto) Eos % (Auto) Baso % (Auto) Absolute Neuts (auto) Absolute Lymphs (auto) Total Counted Sodium Potassium Chloride Carbon Dioxide Anion Gap BUN Creatinine Estim Creat Clear Calc Est GFR (MDRD) Af Amer Est GFR (MDRD) Non-Af BUN/Creatinine Ratio Glucose Lactic Acid Calcium Phosphorus Magnesium Total Bilirubin AST ALT Alkaline Phosphatase Troponin I B-Natriuretic Peptide 54.4 Total Protein Albumin Globulin Albumin/Globulin Ratio Triglycerides Cholesterol LDL Cholesterol VLDL Cholesterol HDL Cholesterol TSH 1.47 Urine Color Yellow Urine Clarity Clear Urine pH 6.0 Ur Specific [place] 1.015 Urine Protein Negative Urine Glucose (UA) Normal Urine Ketones Negative Urine Occult Blood Negative Urine Nitrite Positive H Urine Bilirubin Negative Urine Urobilinogen Normal Ur Leukocyte Esterase 100 H Urine RBC 0 SEEN Urine WBC 5-10 SEEN Ur Squamous Epith Cells 0-5 SEEN Urine Bacteria 4+ Urine Mucus 0 SEEN 07/20/18 07/20/18 07/21/18 20:25 23:15 02:08 WBC 7.3 RBC 4.70 Hgb 12.3 Hct 38.5 MCV 81.9 MCH 26.2 L MCHC 31.9 L RDW 14.7 H RDW Differential 43.9 Plt Count 295 MPV 10.3 Immature Gran % (Auto) 0.100 Neut % (Auto) 49.7 Lymph % (Auto) 38.6 [place] % (Auto) 10.2 H Eos % (Auto) 1.0 Baso % (Auto) 0.4 Absolute Neuts (auto) 3.6 Absolute Lymphs (auto) 2.80 Total Counted Not Reportable Sodium Potassium Chloride Carbon Dioxide Anion Gap BUN Creatinine Estim Creat Clear Calc Est GFR (MDRD) Af Amer Est GFR (MDRD) Non-Af BUN/Creatinine Ratio Glucose Lactic Acid Calcium Phosphorus Magnesium Total Bilirubin AST ALT Alkaline Phosphatase Troponin I 0.016 < 0.015 B-Natriuretic Peptide Total Protein Albumin Globulin Albumin/Globulin Ratio Triglycerides Cholesterol LDL Cholesterol VLDL Cholesterol HDL Cholesterol TSH Urine Color Urine Clarity Urine pH Ur Specific [place] Urine Protein Urine Glucose (UA) Urine Ketones Urine Occult Blood Urine Nitrite Urine Bilirubin Urine Urobilinogen Ur Leukocyte Esterase Urine RBC Urine WBC Ur Squamous Epith Cells Urine Bacteria Urine Mucus 07/21/18 07/21/18 02:08 02:08 WBC RBC Hgb Hct MCV MCH MCHC RDW RDW Differential Plt Count MPV Immature Gran % (Auto) Neut % (Auto) Lymph % (Auto) [place] % (Auto) Eos % (Auto) Baso % (Auto) Absolute Neuts (auto) Absolute Lymphs (auto) Total Counted Sodium 139 Potassium 3.5 Chloride 108 H Carbon Dioxide 26.0 Anion Gap 5 BUN 18 Creatinine 1.03 H Estim Creat Clear Calc 40.77 Est GFR (MDRD) Af Amer 68 Est GFR (MDRD) Non-Af 56 L BUN/Creatinine Ratio 17.5 Glucose 104 Lactic Acid Calcium 9.7 Phosphorus 2.7 Magnesium 2.2 Total Bilirubin AST ALT Alkaline Phosphatase Troponin I < 0.015 B-Natriuretic Peptide Total Protein Albumin Globulin Albumin/Globulin Ratio Triglycerides 235 H Cholesterol 141 LDL Cholesterol 65 VLDL Cholesterol 47 H HDL Cholesterol 29 L TSH Urine Color Urine Clarity Urine pH Ur Specific [place] Urine Protein Urine Glucose (UA) Urine Ketones Urine Occult Blood Urine Nitrite Urine Bilirubin Urine Urobilinogen Ur Leukocyte Esterase Urine RBC Urine WBC Ur Squamous Epith Cells Urine Bacteria Urine Mucus Medical Necessity - Tobacco Use Smoking Status: Former smoker - She quit smoking in her 30s when she was diagnosed with multiple sclerosis Tobacco Use: Non-smoker Assessment/Plan All Active Problems (Last Reviewed 07/21/18 @ 10:07 by Luiz Burkett MD) Delirium (Acute) UTI (urinary tract infection) (Acute) DVT of lower extremity (deep venous thrombosis) (Resolved) Impressions 1. Acute delirium-possibly secondary to urinary tract infection - resolved 2. UTI-possibly related to urine retention unrecognized by the patient 3. Urine retention-unable to urinate today while in the hospital and has had to be straight cathed a few times. Urine retention has been intermittent in the past depending on disease activity of multiple sclerosis 4. Multiple sclerosis with acute exacerbation secondary to infection 5. Coronary artery disease with history of CABG x2 vessels 6. Pacemaker implantation 7. REBECCA-compliant with CPAP 8. Hypertension 9. Hyperlipidemia 10. Former smoker-quit greater than 30 years ago 11. GERD 12. 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 Chronic anticoagulation with Eliquis 14. Congestive heart failure 15. Stage I diastolic dysfunction with an EF of 55% coag negative staph in the blood in 1 of 2 cultures is likely a contaminant GM - rods in the urine Continue the Rocephin I reviewed Dr. Burkett's consult and he recommends no change in her MS medications but she will continue with antibiotics. Discontinue IV Lasix and start Lasix 40 mg Thursday and Thursday Code Visit Inpatient E&M: 62053 Subs Hosp L2
--- NOTE | 2018-07-21 10:07 | CON.PCM_ITS ---
Reason for Consult Date of Consultation: 07/21/18 Reason for Consultation: numbness History of Present Illness: The patient is a 67 year old with history of ms awoke yesterday am with pins and needles sensation all over, and couldnt move arms or legs and face but could talk. says confused as well, came to ed as below, diagnosed with uti, now symptoms improved, no pins and needles but legs insensate and weak. normally sees dr philippe for ms, reports normally has some weakness in right arm and leg due to ms. 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 She was unable to ambulate today due to leg weakness and she is normally able to do this. She later became alert, appropriate and oriented x3. She denies fever, chills, dysuria, cough, nausea, vomiting, abdominal pain, diarrhea. She tells me she has not had difficulty with urine retention recently and has not had to self catheterize. She does not believe she mistakenly took extra medication. Vital signs at presentation to the emergency room were temp 98.3, pulse rate 68, blood pressure 167/83, respiratory rate 20 and a pulse ox was 94% on room air. White blood cell count was 5.7 with an unremarkable differential. Hemoglobin and platelets were within normal limits. BMP showed an elevated BUN of 20 with a creatinine of 0.95. She is on Lasix and Aldactone as an outpatient and possibly has some element of chronic congestive heart failure. LFTs are normal. A urine obtained by straight cath showed 5-10 white blood cells per high-power field with 4+ bacteria. It was nitrite positive. Blood cultures were drawn in the emergency room and the urine was sent for culture. A CT scan of the brain showed no acute findings. Chest x-ray showed no infiltrates but did show increased pulmonary vascular congestion. The radiologist also felt she had thyromegaly. She is being admitted to the hospital with acute delirium, possibly due to UTI, UTI and possible exacerbation MS. Past Medical History Past Medical History (Chronic Problems): Chronic Problems (Last Reviewed 07/21/18 @ 10:07 by Luiz Burkett MD) Multiple sclerosis (Chronic) Morbid obesity (Chronic) HTN (hypertension) (Chronic) CAD (coronary artery disease) (Chronic) S/P CABG x 2 (Chronic) GERD (gastroesophageal reflux disease) (Chronic) HLD (hyperlipidemia) (Chronic) REBECCA (obstructive sleep apnea) (Chronic) Compliant with CPAP Pacemaker (Chronic) Urine retention (Chronic) off an on...has self cath'd in the past Chronic anticoagulation (Chronic) Eliquis IBS (irritable bowel syndrome) (Chronic) Medical History: Medical History (Last Reviewed 07/21/18 @ 10:07 by Luiz Burkett MD) Back pain M54.9 CAD (coronary artery disease) I25.10 Cardiac pacemaker Z95.0 DVT (deep venous thrombosis) I82.409 GERD (gastroesophageal reflux disease) K21.9 Hyperlipidemia E78.5 Iron deficiency anemia D50.9 Multiple sclerosis G35 Neuropathic pain M79.2 REBECCA (obstructive sleep apnea) G47.33 Pulmonary embolism I26.99 RUQ pain R10.11 Vitamin D deficiency E55.9 Hypertension I10 Allergies glatiramer (copolymer 1) [From Copaxone] Allergy (Verified 07/20/18 08:46) Itching itching and redness surrounding injection site Home Medications: Ambulatory Orders Medication Instructions Recorded Apixaban [Eliquis] 5 mg PO BID 07/20/18 Aspirin [Aspirin, Baby] 81 mg PO DAILY@0800 07/20/18 Baclofen 2 tab PO QHS 07/20/18 Baclofen 20 mg PO BID 07/20/18 Carvedilol [Coreg] 12.5 mg PO BID 07/20/18 Cholecalciferol (Vitamin D3) 2,000 unit PO DAILY 07/20/18 [Vitamin D3] Fenofibrate [Tricor] 145 mg PO DAILY 07/20/18 Ferrous Sulfate 325 mg PO DAILY 07/20/18 Furosemide [Lasix] 40 mg PO MOWEFR 07/20/18 Gabapentin [Neurontin] 600 mg PO TIDCM 07/20/18 Linaclotide [Linzess] 72 mcg PO DAILY PRN 07/20/18 Losartan Potassium [Cozaar] 50 mg PO DAILY 07/20/18 Magnesium Oxide [Mag-Ox 400] 400 mg PO BID 07/20/18 Multivitamin [Multivitamins] 1 each PO DAILY 07/20/18 Pantoprazole Sodium [Protonix] 40 mg PO DAILY 07/20/18 Pravastatin Sodium 20 mg PO QHS 07/20/18 Rebif Injection 5 mg MOWEFR 07/20/18 Spironolactone 25 mg PO QHS 07/20/18 Sucralfate 1 gm PO QHS 07/20/18 Sucralfate 1 gm PO TIDCM 07/20/18 Surgical History: Surgical History (Last Reviewed 07/21/18 @ 10:07 by Luiz Burkett MD) History of appendectomy Z90.49 History of carpal tunnel release Z98.890 history double bypass cardiac surgery Surgical History: coronary bypass surgery, hysterectomy - with BL oophorectomy in her 20's for an ovarian mass., pacemaker implantation, rotator cuff repair - Right shoulder, - Psychiatric History: No pertinent psych hx 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 history Lives: With Family Smoking Status: Former smoker - She quit smoking in her 30s when she was diagnosed with multiple sclerosis Tobacco Use: Non-smoker Alcohol: Occasional Drugs: None - *Family History Maternal Family History: Family History (Last Reviewed 07/21/18 @ 10:08 by Luiz Burkett MD) Mother Diabetes Father Cancer Brother Cancer Sibling Family History: Family History (Last Reviewed 07/21/18 @ 10:08 by Luiz Burkett MD) Mother Diabetes Father Cancer Brother Cancer History Items: Diabetes, Heart Disease, Hypertension, - - Uterine cancer in her sister Patient Problems: Active and Suspected Problems (Last Reviewed 07/21/18 @ 10:07 by Luiz Burkett MD) Delirium (Acute) UTI (urinary tract infection) (Acute) - Physical Exam General: Alert, Oriented x3, Cooperative, No apparent distress HEENT: PERRLA, EOMI Neurological: Cranial nerves II-XII grossly intact, - - arms normal, legs no effort, toes down, no clonus Psych/Mental Status: Normal Affect, Alert and oriented to time, place, person, mood and affect Vital Signs Temp Pulse Resp BP Pulse Ox 36.9 C 65 18 147/78 H 95 07/21/18 08:18 07/21/18 08:18 07/21/18 08:18 07/21/18 08:18 07/21/18 08:18 Oxygen Delivery Method Room Air Weight: 99.7 kg Body Mass Index (BMI) 40.1 Finger Stick Blood Glucose 108 Intake and Output for Last 24 Hours 07/19/18 07/20/18 07/21/18 23:59 23:59 23:59 Intake Total 1062 / 1062 Output Total 1725 / 1725 Balance -663 / -663 Microbiology Past 72 Hours 07/20/18 09:45 Blood Culture - Preliminary Blood Culture (Wb) - Anticubital Right Laboratory Tests Past 24 Hrs 07/20/18 07/20/18 07/20/18 09:45 09:45 09:45 WBC RBC Hgb Hct MCV MCH MCHC RDW RDW Differential Plt Count MPV Immature Gran % (Auto) Neut % (Auto) Lymph % (Auto) [place] % (Auto) Eos % (Auto) Baso % (Auto) Absolute Neuts (auto) Absolute Lymphs (auto) Total Counted Sodium 139 Potassium 4.0 Chloride 109 H Carbon Dioxide 25.0 Anion Gap 5 BUN 20 H Creatinine 0.95 Estim Creat Clear Calc 44.20 Est GFR (MDRD) Af Amer 75 Est GFR (MDRD) Non-Af 62 BUN/Creatinine Ratio 21.0 H Glucose 107 H Lactic Acid 1.4 Calcium 9.7 Phosphorus Magnesium Total Bilirubin 0.30 AST 22 ALT 31 Alkaline Phosphatase 60 Troponin I 0.027 B-Natriuretic Peptide 54.4 Total Protein 7.7 Albumin 3.8 Globulin 3.9 Albumin/Globulin Ratio 1.0 Triglycerides Cholesterol LDL Cholesterol VLDL Cholesterol HDL Cholesterol TSH Urine Color Urine Clarity Urine pH Ur Specific [place] Urine Protein Urine Glucose (UA) Urine Ketones Urine Occult Blood Urine Nitrite Urine Bilirubin Urine Urobilinogen Ur Leukocyte Esterase Urine RBC Urine WBC Ur Squamous Epith Cells Urine Bacteria Urine Mucus 07/20/18 07/20/18 07/20/18 09:45 10:10 20:25 WBC RBC Hgb Hct MCV MCH MCHC RDW RDW Differential Plt Count MPV Immature Gran % (Auto) Neut % (Auto) Lymph % (Auto) [place] % (Auto) Eos % (Auto) Baso % (Auto) Absolute Neuts (auto) Absolute Lymphs (auto) Total Counted Sodium Potassium Chloride Carbon Dioxide Anion Gap BUN Creatinine Estim Creat Clear Calc Est GFR (MDRD) Af Amer Est GFR (MDRD) Non-Af BUN/Creatinine Ratio Glucose Lactic Acid Calcium Phosphorus Magnesium Total Bilirubin AST ALT Alkaline Phosphatase Troponin I 0.016 B-Natriuretic Peptide Total Protein Albumin Globulin Albumin/Globulin Ratio Triglycerides Cholesterol LDL Cholesterol VLDL Cholesterol HDL Cholesterol TSH 1.47 Urine Color Yellow Urine Clarity Clear Urine pH 6.0 Ur Specific [place] 1.015 Urine Protein Negative Urine Glucose (UA) Normal Urine Ketones Negative Urine Occult Blood Negative Urine Nitrite Positive H Urine Bilirubin Negative Urine Urobilinogen Normal Ur Leukocyte Esterase 100 H Urine RBC 0 SEEN Urine WBC 5-10 SEEN Ur Squamous Epith Cells 0-5 SEEN Urine Bacteria 4+ Urine Mucus 0 SEEN 07/20/18 07/21/18 07/21/18 23:15 02:08 02:08 WBC 7.3 RBC 4.70 Hgb 12.3 Hct 38.5 MCV 81.9 MCH 26.2 L MCHC 31.9 L RDW 14.7 H RDW Differential 43.9 Plt Count 295 MPV 10.3 Immature Gran % (Auto) 0.100 Neut % (Auto) 49.7 Lymph % (Auto) 38.6 [place] % (Auto) 10.2 H Eos % (Auto) 1.0 Baso % (Auto) 0.4 Absolute Neuts (auto) 3.6 Absolute Lymphs (auto) 2.80 Total Counted Not Reportable Sodium 139 Potassium 3.5 Chloride 108 H Carbon Dioxide 26.0 Anion Gap 5 BUN 18 Creatinine 1.03 H Estim Creat Clear Calc 40.77 Est GFR (MDRD) Af Amer 68 Est GFR (MDRD) Non-Af 56 L BUN/Creatinine Ratio 17.5 Glucose 104 Lactic Acid Calcium 9.7 Phosphorus 2.7 Magnesium 2.2 Total Bilirubin AST ALT Alkaline Phosphatase Troponin I < 0.015 B-Natriuretic Peptide Total Protein Albumin Globulin Albumin/Globulin Ratio Triglycerides 235 H Cholesterol 141 LDL Cholesterol 65 VLDL Cholesterol 47 H HDL Cholesterol 29 L TSH Urine Color Urine Clarity Urine pH Ur Specific [place] Urine Protein Urine Glucose (UA) Urine Ketones Urine Occult Blood Urine Nitrite Urine Bilirubin Urine Urobilinogen Ur Leukocyte Esterase Urine RBC Urine WBC Ur Squamous Epith Cells Urine Bacteria Urine Mucus 07/21/18 02:08 WBC RBC Hgb Hct MCV MCH MCHC RDW RDW Differential Plt Count MPV Immature Gran % (Auto) Neut % (Auto) Lymph % (Auto) [place] % (Auto) Eos % (Auto) Baso % (Auto) Absolute Neuts (auto) Absolute Lymphs (auto) Total Counted Sodium Potassium Chloride Carbon Dioxide Anion Gap BUN Creatinine Estim Creat Clear Calc Est GFR (MDRD) Af Amer Est GFR (MDRD) Non-Af BUN/Creatinine Ratio Glucose Lactic Acid Calcium Phosphorus Magnesium Total Bilirubin AST ALT Alkaline Phosphatase Troponin I < 0.015 B-Natriuretic Peptide Total Protein Albumin Globulin Albumin/Globulin Ratio Triglycerides Cholesterol LDL Cholesterol VLDL Cholesterol HDL Cholesterol TSH Urine Color Urine Clarity Urine pH Ur Specific [place] Urine Protein Urine Glucose (UA) Urine Ketones Urine Occult Blood Urine Nitrite Urine Bilirubin Urine Urobilinogen Ur Leukocyte Esterase Urine RBC Urine WBC Ur Squamous Epith Cells Urine Bacteria Urine Mucus Current Home Med List Medication Instructions Recorded Confirmed Type Apixaban [Eliquis] 5 mg PO BID 07/20/18 07/20/18 History Aspirin [Aspirin, Baby] 81 mg PO DAILY@0800 07/20/18 07/20/18 History Baclofen 2 tab PO QHS 07/20/18 07/20/18 History Baclofen 20 mg PO BID 07/20/18 07/20/18 History Carvedilol [Coreg] 12.5 mg PO BID 07/20/18 07/20/18 History Cholecalciferol (Vitamin D3) 2,000 unit PO DAILY 07/20/18 07/20/18 History [Vitamin D3] Fenofibrate [Tricor] 145 mg PO DAILY 07/20/18 07/20/18 History Ferrous Sulfate 325 mg PO DAILY 07/20/18 07/20/18 History Furosemide [Lasix] 40 mg PO MOWEFR 07/20/18 07/20/18 History Gabapentin [Neurontin] 600 mg PO TIDCM 07/20/18 07/20/18 History Linaclotide [Linzess] 72 mcg PO DAILY PRN 07/20/18 07/20/18 History Losartan Potassium [Cozaar] 50 mg PO DAILY 07/20/18 07/20/18 History Magnesium Oxide [Mag-Ox 400] 400 mg PO BID 07/20/18 07/20/18 History Multivitamin [Multivitamins] 1 each PO DAILY 07/20/18 07/20/18 History Pantoprazole Sodium [Protonix] 40 mg PO DAILY 07/20/18 07/20/18 History Pravastatin Sodium 20 mg PO QHS 07/20/18 07/20/18 History Rebif Injection 5 mg MOWEFR 07/20/18 History Spironolactone 25 mg PO QHS 07/20/18 07/20/18 History Sucralfate 1 gm PO QHS 07/20/18 07/20/18 History Sucralfate 1 gm PO TIDCM 07/20/18 07/20/18 History Assessment/Plan All Active Problems (Last Reviewed 07/21/18 @ 10:07 by Luiz Burkett MD) Delirium (Acute) UTI (urinary tract infection) (Acute) DVT of lower extremity (deep venous thrombosis) (Resolved) weakness, exam nonphysiologic but improved with rx of uti. no mri due to pacer continue antbiotics pt/ot no change in ms rx dc when baseline f/u with dr philippe
[2018-07-21 13:38] VITALS: BP 146/84; PULSE 66; RESP 18; TEMP 36.8; O2SAT 95
[2018-07-21] MEDS: Ferrous Sulfate 325 MG Tablet PO (13:39)
--- NOTE | 2018-07-21 14:30 | CASEMGMT ---
SW asked pt about LW/POA, she states her is POA. SW let pt know that they are not on the chart. will look for the papers at home and bring them in. MARISSA Steele
--- NOTE | 2018-07-21 14:50 | CASEMGMT ---
SW met w/pt and in room, pt is alert and oriented X 3. SW discussed prior level of function and any discharge needs. PCP: Dr. Jamie Cruz Specialists: Dr. Hobbs, medical transcription radiology, Dr. Nicholas, neurologist Preferred Pharmacy: [facility] in [place] Insurance/Prescription benefit: [employer] Medicare Living Will/POA: Pt states is POA, will try to bring in the documents tomorrow LNOK/Living arrangements: Pt lives w/ and daughter in home w/ramp entry Prior level of function: Pt's helps w/ADL's such as bathing, dressing, and transportation. Daughter helps w/cooking and cleaning. Pt organizes her own medications DME: hospital bed, wheeled walker, power chair, grab bar, shower chair, ramp, lift chair HHC/SNF: No history of HHC or SNF SW spoke w/pt and in room in regard to discharge plan. Pt anticipates returning home at discharge. Pt states her and daughter can help pt through this spell, this has happened before. Pt also does not anticipate needing any home health care. Pt's mobility is worse at times, better at other times. SW let pt and know if any discharge needs do arise, SW remains available. Plan: Home w/family assist
[2018-07-21 20:06] VITALS: BP 120/72; PULSE 67; RESP 16; TEMP 36.7; O2SAT 93
[2018-07-21] MEDS: Pravastatin 20 MG Tablet PO (21:32)
[2018-07-21] MEDS: Baclofen 10 MG Tablet 40 MG PO (21:32)
[2018-07-21] MEDS: Spironolactone 25 MG Tablet PO (21:32)
[2018-07-22 02:04] VITALS: BP 139/75; PULSE 80; RESP 16; TEMP 36.4; O2SAT 94
[2018-07-22] MEDS: Pantoprazole Sodium 40 MG Tablet PO (06:31)
[2018-07-22] MEDS: Sucralfate 1 GM Tablet PO ×2 (06:31→10:53)
[2018-07-22] MEDS: Baclofen 10 MG Tablet 20 MG PO ×2 (06:32→13:23)
--- NOTE | 2018-07-22 07:24 | PN_ITS ---
Patient Problems: Active and Suspected Problems (Last Reviewed 07/21/18 @ 10:07 by Luiz Burkett MD) Delirium (Acute) UTI (urinary tract infection) (Acute) Subjective: Day #3 Rocephin All events of the past 24 hours of been reviewed. Afebrile since admission. Vital signs are stable. She is 93-95% saturated on room air and 94% on CPAP. Good oral intake. Strength in her legs is improving and she was able to ambulate 5 feet with physical therapy yesterday but they recommend continued therapy. Urine culture is still pending. - Physical Exam Vital Signs Temp Pulse Resp BP Pulse Ox 97.6 F L 80 16 139/75 H 94 07/22/18 02:04 07/22/18 02:04 07/22/18 02:04 07/22/18 02:04 07/22/18 02:04 Oxygen Delivery Method CPAP Weight: 219 lb 12.814 oz Body Mass Index (BMI) 40.1 Finger Stick Blood Glucose 108 Intake and Output for Last 24 Hours 07/20/18 07/21/18 07/22/18 23:59 23:59 23:59 Intake Total 2209 / 2209 752 / 752 Output Total 3425 / 3425 750 / 750 Balance -1216 / -1216 2 / Microbiology Past 72 Hours 07/20/18 09:45 Bacteria Detection (PCR) - Final Blood Culture (Wb) - Anticubital Right Coag Negative Staph Blood Culture - Preliminary 07/20/18 13:53 Urine Culture - Preliminary Urine, Catheterized 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
[2018-07-22] MEDS: Ceftriaxone 1 GM/50 ML BAG IV (08:31)
[2018-07-22] MEDS: Gabapentin 600 MG Tablet PO ×2 (08:32→10:53)
[2018-07-22] MEDS: Carvedilol 12.5 MG Tablet PO (08:32)
[2018-07-22] MEDS: Aspirin 81 MG TAB.CHEW PO (08:33)
[2018-07-22] MEDS: Losartan Potassium 50 MG Tablet PO (08:33)
[2018-07-22] MEDS: Fenofibrate 145 MG Tablet PO (08:33)
[2018-07-22] MEDS: Multivitamins,Therapeutic Tablet 1 TABLET PO (08:33)
[2018-07-22] MEDS: Magnesium Oxide 400 MG Tablet PO (08:33)
[2018-07-22] MEDS: APIXABAN 5 MG TABLET PO (08:34)
[2018-07-22 08:35] VITALS: BP 138/82; PULSE 73; RESP 18; TEMP 36.8; O2SAT 95
--- NOTE | 2018-07-22 08:46 | CON.PCM_ITS ---
Problem List (1) UTI (urinary tract infection) Status: Acute (2) Multiple sclerosis Status: Chronic Reason for Consult Date of Consultation: 07/22/18 Reason for Consultation: Urinary tract infection, urinary retention, MS. History of Present Illness: The patient is a 67 year old F with a history of MS. She is admitted to the hospital secondary to a urinary tract infection that caused encephalopathy and delirium. She was cathing several years ago and stopped due to insurance not paying for the catheters and she felt that her symptoms resolved. At that time she was only cathing at night before bed. She has essentially no significant feeling from the waist down. She does walk with a cane. She has no sensation of prolapse. She does not know how many urinary tract infections she has had within the last year. She is not on a bowel regimen and cannot feel when her bowels move. She does stool approximately every other day. She attempts to void throughout the day but trickles. She also has incontinence. She does have a history of a blood clot following a procedure approximately 7 years ago. She has no history of female cancers in her past. She has never seen a urologist. Past Medical History Past Medical History (Chronic Problems): Chronic Problems (Last Reviewed 07/21/18 @ 10:07 by Luiz Burkett MD) Multiple sclerosis (Chronic) Morbid obesity (Chronic) HTN (hypertension) (Chronic) CAD (coronary artery disease) (Chronic) S/P CABG x 2 (Chronic) GERD (gastroesophageal reflux disease) (Chronic) HLD (hyperlipidemia) (Chronic) REBECCA (obstructive sleep apnea) (Chronic) Compliant with CPAP Pacemaker (Chronic) Urine retention (Chronic) off an on...has self cath'd in the past Chronic anticoagulation (Chronic) Eliquis IBS (irritable bowel syndrome) (Chronic) Medical History: Medical History (Last Reviewed 07/22/18 @ 08:45 by Lidia Hines MD) Back pain M54.9 CAD (coronary artery disease) I25.10 Cardiac pacemaker Z95.0 DVT (deep venous thrombosis) I82.409 GERD (gastroesophageal reflux disease) K21.9 Hyperlipidemia E78.5 Iron deficiency anemia D50.9 Multiple sclerosis G35 Neuropathic pain M79.2 REBECCA (obstructive sleep apnea) G47.33 Pulmonary embolism I26.99 RUQ pain R10.11 Vitamin D deficiency E55.9 Hypertension I10 Allergies glatiramer (copolymer 1) [From Copaxone] Allergy (Verified 07/20/18 08:46) Itching itching and redness surrounding injection site Home Medications: Ambulatory Orders Medication Instructions Recorded Apixaban [Eliquis] 5 mg PO BID 07/20/18 Aspirin [Aspirin, Baby] 81 mg PO DAILY@0800 07/20/18 Baclofen 2 tab PO QHS 07/20/18 Baclofen 20 mg PO BID 07/20/18 Carvedilol [Coreg] 12.5 mg PO BID 07/20/18 Cholecalciferol (Vitamin D3) 2,000 unit PO DAILY 07/20/18 [Vitamin D3] Fenofibrate [Tricor] 145 mg PO DAILY 07/20/18 Ferrous Sulfate 325 mg PO DAILY 07/20/18 Furosemide [Lasix] 40 mg PO MOWEFR 07/20/18 Gabapentin [Neurontin] 600 mg PO TIDCM 07/20/18 Linaclotide [Linzess] 72 mcg PO DAILY PRN 07/20/18 Losartan Potassium [Cozaar] 50 mg PO DAILY 07/20/18 Magnesium Oxide [Mag-Ox 400] 400 mg PO BID 07/20/18 Multivitamin [Multivitamins] 1 each PO DAILY 07/20/18 Pantoprazole Sodium [Protonix] 40 mg PO DAILY 07/20/18 Pravastatin Sodium 20 mg PO QHS 07/20/18 Rebif Injection 5 mg MOWEFR 07/20/18 Spironolactone 25 mg PO QHS 07/20/18 Sucralfate 1 gm PO QHS 07/20/18 Sucralfate 1 gm PO TIDCM 07/20/18 Surgical History: Surgical History (Last Reviewed 07/21/18 @ 10:07 by Luiz Burkett MD) History of appendectomy Z90.49 History of carpal tunnel release Z98.890 history double bypass cardiac surgery Surgical History: coronary bypass surgery, hysterectomy - with BL oophorectomy in her 20's for an ovarian mass., pacemaker implantation, rotator cuff repair - Right shoulder, - Psychiatric History: No pertinent psych hx 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 ASSISTANT history Lives: With Family Smoking Status: Former smoker - She quit smoking in her 30s when she was diagnosed with multiple sclerosis Tobacco Use: Non-smoker Alcohol: Occasional Drugs: None - *Family History Maternal Family History: Family History (Last Reviewed 07/21/18 @ 10:08 by Luiz Burkett MD) Mother Diabetes Father Cancer Brother Cancer Sibling Family History: Family History (Last Reviewed 07/21/18 @ 10:08 by Luiz Burkett MD) Mother Diabetes Father Cancer Brother Cancer History Items: Diabetes, Heart Disease, Hypertension, - - Uterine cancer in her sister Review of Systems Eyes: Denies: Vision Change HEENT: Denies: Hard of Hearing Cardiovascular: Denies: Chest Pain Respiratory: Denies: Shortness of Breath Gastrointestinal: Reports: Constipation. Denies: Abdominal Pain Genitourinary: Reports: Dysuria, Hesitancy, Incontinence, Retention Gynecological: Reports: - - no evidence of pelvic organ prolapse.. Denies: Vaginal itching Musculoskeletal: Reports: - - difficulty with ambulation, walks with cane Skin: Denies: Skin Changes Neurological: Reports: Balance problems, Numbness Endocrine: Denies: Change in Body Habitus Hematologic/ Lymphatic: Reports: Hx of blood clot - 7 yrs ago after procedure. Patient Problems: Active and Suspected Problems (Last Reviewed 07/21/18 @ 10:07 by Luiz Burkett MD) Delirium (Acute) UTI (urinary tract infection) (Acute) Subjective: Sitting up in chair. No acute distress. Able to have good conversation. at bedside. - Physical Exam General: Alert, Oriented x3, Cooperative, No apparent distress HEENT: Atraumatic, Normocephalic Oral: Moist Mucosa Neck: Supple, Trachea Midline Lungs: Normal air movement Cardiovascular: Regular rate Abdomen: Soft, Non Tender Musculoskeletal: Muscle Wasting Psych/Mental Status: Normal Affect Vital Signs Temp Pulse Resp BP Pulse Ox 98.2 F 73 18 138/82 H 95 07/22/18 08:35 07/22/18 08:35 07/22/18 08:35 07/22/18 08:35 07/22/18 08:35 Oxygen Delivery Method Room Air Weight: 99.7 kg Body Mass Index (BMI) 40.1 Finger Stick Blood Glucose 108 Intake and Output for Last 24 Hours 07/20/18 07/21/18 07/22/18 23:59 23:59 23:59 Intake Total 2209 / 2209 752 / 752 Output Total 3425 / 3425 750 / 750 Balance -1216 / -1216 2 / 2 Microbiology Past 72 Hours 07/20/18 13:53 Urine Culture - Preliminary Urine, Catheterized Escherichia coli 07/20/18 09:45 Bacteria Detection (PCR) - Final Blood Culture (Wb) - Anticubital Right Coag Negative Staph Blood Culture - Preliminary Assessment/Plan All Active Problems (Last Reviewed 07/21/18 @ 10:07 by Luiz Burkett MD) Delirium (Acute) UTI (urinary tract infection) (Acute) DVT of lower extremity (deep venous thrombosis) (Resolved) MS with urinary tract infections and urinary retention. Home with givens, nightly antibiotics for 3 months. Renal U/S. Cystoscopy in the office with pelvic exam, risks discussed including discomfort, bleeding and infection. Will need urodynamics following this to determine appropriate regimen for emptying. Will need to start bowel regimen. Start vaginal estrogen replacement. Thank you for the consult.
--- NOTE | 2018-07-22 08:51 | US_ITS ---
STUDY: RENAL ULTRASOUND - COMPLETE REASON FOR EXAM: Female, 67 years old. UTI and urinary retention TECHNIQUE: Ultrasound evaluation of the kidneys was performed with real-time and static rodriguez-scale imaging. COMPARISON: None. FINDINGS: RIGHT KIDNEY: Normal location of the right kidney, which is normal in size. The right kidney measures 10.2 x 4 x 4.5 cm. There is a normal cortex of the right kidney. The renal cortex measures 1.1 cm. There is no right renal mass or cyst. There are no right renal calculi. There is no right hydronephrosis. DISTAL RIGHT URETER: There is non-visualization of the distal right ureter. There is no demonstrated right ureterovesical junction calculus. There is no demonstrated right ureteral jet. LEFT KIDNEY: Normal location of the left kidney, which is normal in size. The left kidney measures 12 x 6 x 6 cm. There is a normal cortex of the left kidney. The renal cortex measures 1.8 cm. There is no left renal mass or cyst. There are no left renal calculi. There is no left hydronephrosis. DISTAL LEFT URETER: There is non-visualization of the distal left ureter. There is no demonstrated left ureterovesical junction calculus. There is no demonstrated left ureteral jet. BLADDER: The urinary bladder is decompressed with a Quezada catheter. US/Kidney and Bladder IMPRESSION: Normal ultrasound of the kidneys and urinary bladder allowing for decompression with a Quezada catheter. Electronically Signed: Afia Taylor MD at 4:18 EDT , Service support ,
[2018-07-22] MEDS: Ferrous Sulfate 325 MG Tablet PO (10:53)
--- NOTE | 2018-07-22 11:18 | CASEMGMT ---
RN DENZEL Note: Intro role of CM to patient and her in room. Discussed Home Health care, RN PT/OT. Pt is declining service at this time. RN DENZEL let her know if they reconsider, RN DENZEL will assist with set up. Kim SOODN RN ACM
[2018-07-22] MEDS: Fleet Enema 1 ML RECTAL (13:21)
[2018-07-22 13:34] VITALS: BP 135/78; PULSE 76; RESP 16; TEMP 36.3; O2SAT 94
--- NOTE | 2018-07-22 14:44 | DS.PCM_ITS ---
Discharge Date and Diagnosis - Problem List Patient Problems: Active and Suspected Problems (Last Reviewed 07/22/18 @ 08:45 by Lidia Hines MD) Exacerbation of multiple sclerosis (Acute) Delirium (Acute) UTI (urinary tract infection) (Acute) Date of Admission: 07/20/18 Date of Discharge: 07/22/18 - Primary Discharge Diagnosis Active and Suspected Problems (Last Reviewed 07/22/18 @ 08:45 by Lidia Hines MD) Delirium (Acute) due to UTI Complicated UTI (urinary tract infection) (Acute) - due to urine retention Acute exacerbation of MS Urine retention CHF - ruled out - Secondary Discharge Diagnosis Chronic Problems (Last Reviewed 07/22/18 @ 08:45 by Lidia Hines MD) Multiple sclerosis (Chronic) Morbid obesity (Chronic) HTN (hypertension) (Chronic) CAD (coronary artery disease) (Chronic) S/P CABG x 2 (Chronic) GERD (gastroesophageal reflux disease) (Chronic) HLD (hyperlipidemia) (Chronic) REBECCA (obstructive sleep apnea) (Chronic) Compliant with CPAP Pacemaker (Chronic) Urine retention (Chronic) off an on...has self cath'd in the past Chronic anticoagulation (Chronic) Eliquis IBS (irritable bowel syndrome) (Chronic) Hospital Course and Treatment Imaging Results: 07/22/18 08:51 Renal [Kidney and Bladder] [US] Urgent Clinical Impression(s) from Imaging Studies Brain CT 07/20/18 08:55 IMPRESSION: Chronic involutional changes of the brain. Electronically Signed: Timothy Rivera, at 11:04 EDT , Service support , Chest X-Ray 07/20/18 08:55 IMPRESSION: Thyromegaly. Mild degree of CHF. Electronically Signed: Timothy Rivera, at 11:05 EDT , Service support , Microbiology 07/20/18 09:45 Blood Culture (Wb) - Anticubital Right Bacteria Detection (PCR) - Final Coag Negative Staph 07/20/18 09:45 Blood Culture (Wb) - Anticubital Right Blood Culture - Preliminary Coag Negative Staph 07/20/18 13:53 Urine, Catheterized Urine Culture - Final Escherichia coli 07/20/18 09:45 Blood Culture (Wb) #2 - Left Forearm Blood Culture - Preliminary No growth in [address] 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 She was unable to ambulate today due to leg weakness and she is normally able to do this. She later became alert, appropriate and oriented x2. She denied fever, chills, dysuria, cough, nausea, vomiting, abdominal pain, diarrhea. She told me she had not had difficulty with urine retention recently and had not had to self catheterize for many years. She did not believe she mistakenly took extra medication. Vital signs at presentation to the emergency room were temp 98.3, pulse rate 68, blood pressure 167/83, respiratory rate 20 and a pulse ox was 94% on room air. White blood cell count was 5.7 with an unremarkable differential. Hemoglobin and platelets were within normal limits. BMP showed an elevated BUN of 20 with a creatinine of 0.95. She is on Lasix and Aldactone as an outpatient and possibly has some element of chronic congestive heart failure. LFTs were normal. A urine obtained by straight cath showed 5-10 white blood cells per high-power field with 4+ bacteria. It was nitrite positive. Blood cultures were drawn in the emergency room and the urine was sent for culture. Urine culture ultimately grew a pansensitive E. Coli. A CT scan of the brain showed no acute findings. Chest x-ray showed no infiltrates but did show increased pulmonary vascular congestion vs poor inspiratory effort with crowded lung markings. The BNP was WNL. The radiologist also felt she had thyromegaly. She was admitted to the hospital with acute delirium, possibly due to UTI and exacerbation MS. She was maintained on Rocephin which was started in the ED. PT and OT were consulted due to increased weakness of both the upper and the lower extremities. Strength in the arms and the legs gradually returned and on 07/22/18 she felt she was at her baseline and ready to go home. She had been seen in consult by Dr. Hines for urine retention and will follow up in the office with Dr. Hines in 2 weeks. She was started on Estrogen cream intravaginally 3 times a week and Keflex 250 mg nightly for 3 months. She will start Keflex after she finishes an additional 7 days of Duricef 500 BID. She will follow up with Dr. Cruz to be evaluated for thyromegaly. She will follow up with her jaiden rologist Dr. Hanna and she will call the office to schedule an appt. Prior to DC she c/o constipation and was given a Fleets enema with good results. - Physical Exam General: Alert, Oriented x3, Cooperative, No apparent distress, Well developed, Well nourished, sitting up in the chair HEENT: Atraumatic, PERRLA, EOMI, Normocephalic, no facial asymmetry Oral: Dry Mucosa Neck: Supple, Negative Carotid Bruits, No Nodes, No Nuchal Rigidity, Trachea Midline, JVD, Bilateral Lungs: Clear to auscultation Cardiovascular: Regular rate, Regular Rhythm, No murmurs, Murmur - 1/6 to 2/6 systolic ejection murmur heard at the second right intercostal space with radiation to the left ventricular outflow track, No rub noted, No Gallop Abdomen: Bowel Sounds Present, Soft, Non Tender, Distended - mildly and a little tympanic, Obese Extremities: No edema, Capillary Refill Less than 3 Seconds Skin: No rashes, No breakdown Musculoskeletal: No Tenderness to Palpation of Joints or Extremities Neurological: Cranial nerves II-XII grossly intact, 1/5 strength in the LE's and 4/5 strength in the UE's Psych/Mental Status: Normal Affect, Appropriate This note was generated with Bon[employer]ide[employer] software. It may contain incorrect words, spelling, and punctuation that were not noted in checking the note before signing. Patient Problems: Active and Suspected Problems (Last Reviewed 07/22/18 @ 08:45 by Lidia Hines MD) Exacerbation of multiple sclerosis (Acute) Delirium (Acute) UTI (urinary tract infection) (Acute) - Physical Exam Vital Signs Temp Pulse Resp BP Pulse Ox 97.3 F L 76 16 135/78 H 94 07/22/18 13:34 07/22/18 13:34 07/22/18 13:34 07/22/18 13:34 07/22/18 13:34 Oxygen Delivery Method Room Air Weight: 219 lb 12.814 oz Body Mass Index (BMI) 40.1 Finger Stick Blood Glucose 108 Intake and Output for Last 24 Hours 07/20/18 07/21/18 07/22/18 23:59 23:59 23:59 Intake Total 2209 / 2209 1441 / 1441 Output Total 3425 / 3425 1000 / 1000 Balance -1216 / -1216 441 / 441 Microbiology Past 72 Hours 07/20/18 09:45 Bacteria Detection (PCR) - Final Blood Culture (Wb) - Anticubital Right Coag Negative Staph Blood Culture - Preliminary Coag Negative Staph 07/20/18 13:53 Urine Culture - Final Urine, Catheterized Escherichia coli 07/20/18 09:45 Blood Culture - Preliminary Blood Culture (Wb) #2 - Left Forearm No growth in 48 hours. Home Medications: Medications to take at Discharge Apixaban [Eliquis] 5 mg PO BID 07/20/18 Aspirin [Aspirin, Baby] 81 mg PO DAILY@0800 07/20/18 Baclofen 2 tab PO QHS 07/20/18 Baclofen 20 mg PO BID 07/20/18 Carvedilol [Coreg] 12.5 mg PO BID 07/20/18 Cholecalciferol (Vitamin D3) [Vitamin D3] 2,000 unit PO DAILY 07/20/18 Fenofibrate [Tricor] 145 mg PO DAILY 07/20/18 Ferrous Sulfate 325 mg PO DAILY 07/20/18 Furosemide [Lasix] 40 mg PO MOWEFR 07/20/18 Gabapentin [Neurontin] 600 mg PO TIDCM 07/20/18 Linaclotide [Linzess] 72 mcg PO DAILY PRN 07/20/18 Losartan Potassium [Cozaar] 50 mg PO DAILY 07/20/18 Magnesium Oxide [Mag-Ox 400] 400 mg PO BID 07/20/18 Multivitamin [Multivitamins] 1 each PO DAILY 07/20/18 Pantoprazole Sodium [Protonix] 40 mg PO DAILY 07/20/18 Pravastatin Sodium 20 mg PO QHS 07/20/18 Rebif Injection 5 mg MOWEFR 07/20/18 Spironolactone 25 mg PO QHS 07/20/18 Sucralfate 1 gm PO QHS 07/20/18 Sucralfate 1 gm PO TIDCM 07/20/18 Cefadroxil [Duricef] 500 mg PO BID #14 capsule 07/22/18 Cephalexin [Keflex] 250 mg PO QHS #30 capsule 07/22/18 Estradiol [Estrace] 1 gm VAGINAL QODAY #15 cream.appl 07/22/18 Following Prescrptions Were Given to Patient: Cephalexin [Keflex] 250 mg PO QHS #30 capsule Estradiol [Estrace] 1 gm VAGINAL QODAY #15 cream.appl Cefadroxil [Duricef] 500 mg PO BID #14 capsule Primary Care Physician: Jamie Cruz MD [Primary Care Provider] - Disposition: Home Minutes spent on discharge:: 35 Patient Condition:: Good Medical Necessity - Tobacco Use Smoking Status: Former smoker - She quit smoking in her 30s when she was diagnosed with multiple sclerosis Tobacco Use: Non-smoker Meaningful Use Info Meaningful Use Diagnoses (Choose all that apply): None applicable Code Visit Inpatient E&M: 57208 Disch Hosp
--- NOTE | 2018-07-22 14:49 | DCINST_ITS ---
- Discharge Diagnoses Current Active Problems: Current Active and Chronic Problems (Last Reviewed 07/22/18 @ 08:45 by Lidia Hines MD) Delirium (Acute) UTI (urinary tract infection) (Acute) Multiple sclerosis (Chronic) Morbid obesity (Chronic) HTN (hypertension) (Chronic) CAD (coronary artery disease) (Chronic) S/P CABG x 2 (Chronic) GERD (gastroesophageal reflux disease) (Chronic) HLD (hyperlipidemia) (Chronic) REBECCA (obstructive sleep apnea) (Chronic) Compliant with CPAP Pacemaker (Chronic) Urine retention (Chronic) off an on...has self cath'd in the past Chronic anticoagulation (Chronic) Eliquis IBS (irritable bowel syndrome) (Chronic) You will use the following diet at home:: Other - Resume previous diet Your food should be the consistency of: Regular Your liquids should be the consistency of: Regular/Thin Discharge Activity: Return to Normal Activity Call your doctor if you observe: Fever of 101 or Higher, Inability to have a bowel movement, Shortness of breath, Dizziness, Fainting spells, Chest pain Additional Instructions: 1. The reason you got a urinary tract infection is you have been retaining urine. Dr. Hines has started you on some Estrogen cream that you will use Thursday, Thursday and Thursday night. It comes in an applicator and you inject it into the vagina. She also wants you to take and antibitotic every night for 3 months. The antibiotic is Keflex. Start the Keflex when you are finished with the duricef that you will be taking twice a day until gone.....7 more days. Follow up with Dr. Hines in 2 weeks. Pending Tests on Discharge: none Allergies/Adverse Reactions: Allergies glatiramer (copolymer 1) [From Copaxone] Allergy (Verified 07/20/18 08:46) Itching itching and redness surrounding injection site Medications to take at Discharge Apixaban [Eliquis] 5 mg PO BID 07/20/18 Aspirin [Aspirin, Baby] 81 mg PO DAILY@0800 07/20/18 Baclofen 2 tab PO QHS 07/20/18 Baclofen 20 mg PO BID 07/20/18 Carvedilol [Coreg] 12.5 mg PO BID 07/20/18 Cholecalciferol (Vitamin D3) [Vitamin D3] 2,000 unit PO DAILY 07/20/18 Fenofibrate [Tricor] 145 mg PO DAILY 07/20/18 Ferrous Sulfate 325 mg PO DAILY 07/20/18 Furosemide [Lasix] 40 mg PO MOWEFR 07/20/18 Gabapentin [Neurontin] 600 mg PO TIDCM 07/20/18 Linaclotide [Linzess] 72 mcg PO DAILY PRN 07/20/18 Losartan Potassium [Cozaar] 50 mg PO DAILY 07/20/18 Magnesium Oxide [Mag-Ox 400] 400 mg PO BID 07/20/18 Multivitamin [Multivitamins] 1 each PO DAILY 07/20/18 Pantoprazole Sodium [Protonix] 40 mg PO DAILY 07/20/18 Pravastatin Sodium 20 mg PO QHS 07/20/18 Rebif Injection 5 mg MOWEFR 07/20/18 Spironolactone 25 mg PO QHS 07/20/18 Sucralfate 1 gm PO QHS 07/20/18 Sucralfate 1 gm PO TIDCM 07/20/18 Cefadroxil [Duricef] 500 mg PO BID #14 capsule 07/22/18 Cephalexin [Keflex] 250 mg PO QHS #30 capsule 07/22/18 Estradiol [Estrace] 1 gm VAGINAL QODAY #15 cream.appl 07/22/18 The following prescriptions were given: Cephalexin [Keflex] 250 mg PO QHS #30 capsule Estradiol [Estrace] 1 gm VAGINAL QODAY #15 cream.appl Cefadroxil [Duricef] 500 mg PO BID #14 capsule Primary Care Physician: Jamie Cruz MD [Primary Care Provider] - Please follow up with your Primary Care Physician in: in 7-10 days Test Results: Test results from this visit will be discussed in further detail at your follow- up appointment, if applicable. Please Follow Up With: Lidia Hines MD When: 2 weeks Please Follow Up With: Dr. Hanna When: call the office for an appt Proposed Discharge Date: 07/22/18
--- NOTE | 2018-07-23 10:53 | CASEMGMT ---
RN DENZEL DC PHONE CALL DC DATE: 07/22/18 DC Disposition: Home LACE/STRATA: 01/13 Intro role of CM to patient via phone. Pt states she does not have questions re: instructions, medications or f/u. No care improvement suggestions given. Kim SOODN RN AC
== END 2018-07-22 17:28 | disposition home or self-care (01) | DRG 690 ==
LOC: ED 09:11 → MS2 12:39
PROVIDERS: Admitting Provider Internal Medicine; Emergency Provider Emergency Medicine; Family Provider Family Medicine; PCP Family Medicine; Referring Provider Internal Medicine; Visit Provider Internal Medicine
DX: N39.0 Urinary tract infection, site not specified (principal); F05 Delirium due to known physiological condition; Z68.41 Body mass index [BMI] 40.0-44.9, adult; G35 Multiple sclerosis; I25.10 Atherosclerotic heart disease of native coronary artery without angina pectoris; E78.5 Hyperlipidemia, unspecified; R33.9 Retention of urine, unspecified; E66.01 Morbid (severe) obesity due to excess calories; K21.9 Gastro-esophageal reflux disease without esophagitis; K58.9 Irritable bowel syndrome, unspecified; G47.33 Obstructive sleep apnea (adult) (pediatric); I10 Essential (primary) hypertension; Z79.01 Long term (current) use of anticoagulants; Z95.1 Presence of aortocoronary bypass graft; Z87.891 Personal history of nicotine dependence; Z95.0 Presence of cardiac pacemaker; Z86.718 Personal history of other venous thrombosis and embolism; Z86.711 Personal history of pulmonary embolism
CPT/HCPCS: 36415; 70450; 71045; 76770; 80048; 80053; 80061; 81001; 82962; 83605; 83735; 83880; 84100; 84443; 84484; 85025; 87040; 87077; 87086; 87088; 87149; 87186; 93005; 93306; 97116; 97162; 97166; 97530; 99285; J7040; Q9957; A4216; C8929; J1940

== ENCOUNTER → 2018-09-07 10:34 | Outpatient (CLI) | payer MEDICARE, SELFPAY ==
[2018-07-20 13:02] VITALS: BMI 40.1
[2018-09-07 11:56] LABS: Hematocrit 38.1 % (37-47); Hemoglobin 12.3 g/dl (12.0-15.0); Mean Corp Hgb Conc 32.3 g/gl (32-36); Mean Corpuscular Hgb 26.6 pg (27.0-32.0); Mean Corpuscular Volume 82.5 fL (81-99); Mean Platelet Vol. 10.6 fl (6.2-12.0); Platelet Count 315 K/mm3 (150-450); RBC Distribution Width CV 14.2 % (11.6-14.6); Red Blood Count 4.62 M/mm3 (4.2-5.4); White Blood Count 7.9 K/mm3 (4.4-11.0)
[2018-09-07 12:01] LABS: Scan Indicated on CBC? Y/N NO
[2018-09-07 12:21] LABS: BUN 18 mg/dL (7-18); Creatinine, Serum 0.95 mg/dL (0.55-1.02); EST Glomerular Filtration Rate 62 mL/min (>60); Glucose 91 mg/dL (74-106)
[2018-09-07 12:22] LABS: ALB/GLOB Ratio 0.8 RATIO (0.9-2.4); AST(SGOT) 27 U/L (15-37); Alanine Aminotransfer ALT/SGPT 40 U/L (13-56); Albumin, Serum 3.6 g/dL (3.2-5.0); Alkaline Phosphatase 59 U/L (45-117); Anion Gap 9 (5-15); Calcium,Total 10.4 mg/dL (8.5-10.1); Chloride 105 mmol/L (98-107); Cholesterol 151 mg/dL (200); Est Glom Filt Rate - Afr Amer 75 mL/min (>60); Globulin 4.4 g/dL (2.2-4.2); High Density Lipoprotein 35 mg/dL; Magnesium 2.2 mg/dL (1.6-2.6); Potassium 4.4 mmol/L (3.5-5.1); Sodium Level 138 mmol/L (136-145); Thyroid Stim Hormone (TSH) 1.47 uIU/mL (0.358-3.74); Triglycerides 146 mg/dL; Very Low Density Lipoprotein 29 mg/dL (5-40)
== END ==
PROVIDERS: Family Provider Family Medicine; PCP Family Medicine
DX: I48.91 Unspecified atrial fibrillation (principal); I25.10 Atherosclerotic heart disease of native coronary artery without angina pectoris; I10 Essential (primary) hypertension; Z95.1 Presence of aortocoronary bypass graft
CPT/HCPCS: 36415; 80053; 80061; 83735; 84443; 85027

== ENCOUNTER 2018-09-21 09:18 | Day surgery (SDC) | payer MEDICARE, SELFPAY ==
[2018-07-20 13:02] VITALS: BMI 40.1
[2018-09-21] VITALS (9 sets, daily range): BP systolic 137–180; BP diastolic 55–100; PULSE 67–98; RESP 16–18; TEMP 36.2–36.4; O2SAT 92–97; BMI 39.9
[2018-09-21] MEDS: Vancomycin IV 1,000 MG/200 ML BAG 200 MG IV (10:36)
--- NOTE | 2018-09-21 11:30 | HP.PCM_ITS ---
Problem List (1) Urinary retention Status: Acute (2) Neurogenic bladder Status: Acute (3) Multiple sclerosis Status: Chronic History of Present Illness Date of Admission: 09/21/18 Chief Complaint: urinary retention The patient is a 67 year old F with multiple sclerosis who has been having trouble with urinary retention. She underwent an evaluation in the office with cystoscopy and urodynamics. She was offered intermittent straight cath which she has been doing as well as a trial of InterStim. She does have a pacemaker in place and is unable to undergo any further MRIs due to this. She has decided to proceed with trial of InterStim insertion. She sleeps flat on her back. Past Medical History Past Medical History (Chronic Problems): Chronic Problems (Last Reviewed 07/22/18 @ 08:45 by Lidia Hines MD) Multiple sclerosis (Chronic) Morbid obesity (Chronic) HTN (hypertension) (Chronic) CAD (coronary artery disease) (Chronic) S/P CABG x 2 (Chronic) GERD (gastroesophageal reflux disease) (Chronic) HLD (hyperlipidemia) (Chronic) REBECCA (obstructive sleep apnea) (Chronic) Compliant with CPAP Pacemaker (Chronic) Urine retention (Chronic) off an on...has self cath'd in the past Chronic anticoagulation (Chronic) Eliquis IBS (irritable bowel syndrome) (Chronic) Medical History: Medical History (Last Reviewed 09/21/18 @ 11:32 by Lidia Hines MD) Back pain M54.9 CAD (coronary artery disease) I25.10 Cardiac pacemaker Z95.0 DVT (deep venous thrombosis) I82.409 GERD (gastroesophageal reflux disease) K21.9 Hyperlipidemia E78.5 Iron deficiency anemia D50.9 Multiple sclerosis G35 Neuropathic pain M79.2 REBECCA (obstructive sleep apnea) G47.33 Pulmonary embolism I26.99 RUQ pain R10.11 Vitamin D deficiency E55.9 Hypertension I10 Allergies glatiramer (copolymer 1) [From Copaxone] Allergy (Verified 09/20/18 08:07) Itching itching and redness surrounding injection site Home Medications: Ambulatory Orders Medication Instructions Recorded Apixaban [Eliquis] 5 mg PO BID 07/20/18 Aspirin [Aspirin, Baby] 81 mg PO DAILY@0800 07/20/18 Baclofen 2 tab PO QHS 07/20/18 Baclofen 20 mg PO BID 07/20/18 Carvedilol [Coreg] 12.5 mg PO BID 07/20/18 Cholecalciferol (Vitamin D3) 2,000 unit PO DAILY 07/20/18 [Vitamin D3] Fenofibrate [Tricor] 145 mg PO DAILY 07/20/18 Ferrous Sulfate 325 mg PO DAILY 07/20/18 Furosemide [Lasix] 40 mg PO MOWEFR 07/20/18 Gabapentin [Neurontin] 600 mg PO TIDCM 07/20/18 Linaclotide [Linzess] 72 mcg PO DAILY PRN 07/20/18 Losartan Potassium [Cozaar] 50 mg PO DAILY 07/20/18 Magnesium Oxide [Mag-Ox 400] 400 mg PO BID 07/20/18 Multivitamin [Multivitamins] 1 each PO DAILY 07/20/18 Pantoprazole Sodium [Protonix] 40 mg PO DAILY 07/20/18 Pravastatin Sodium 20 mg PO QHS 07/20/18 Rebif Injection 5 mg MOWEFR 07/20/18 Spironolactone 25 mg PO QHS 07/20/18 Sucralfate 1 gm PO QHS 07/20/18 Sucralfate 1 gm PO TIDCM 07/20/18 Cephalexin [Keflex] 250 mg PO QHS #30 capsule 07/22/18 Estradiol [Estrace] 1 gm VAGINAL QODAY #15 cream.appl 07/22/18 Surgical History: Surgical History (Last Reviewed 09/21/18 @ 11:32 by Lidia Hines MD) History of appendectomy Z90.49 History of carpal tunnel release Z98.890 history double bypass cardiac surgery Surgical History: coronary bypass surgery, hysterectomy - with BL oophorectomy in her 20's for an ovarian mass., pacemaker implantation, rotator cuff repair - Right shoulder, - Psychiatric History: No pertinent psych hx [employer] History: No pertinent [employer] history Smoking Status: Former smoker Tobacco Use: Non-smoker - *Family History Sibling Family History: Family History (Last Reviewed 07/21/18 @ 10:08 by Luiz Burkett MD) Mother Diabetes Father Cancer Brother Cancer History Items: Diabetes, Heart Disease, Hypertension, - - Uterine cancer in her sister Review of Systems Constitutional: Denies: Anorexia, Fever, Weight Change Eyes: Denies: Vision Change HEENT: Denies: Difficulty Swallowing, Dysphasia, Head Aches Cardiovascular: Denies: Chest Pain, Chest Pressure, Chest Tightness Respiratory: Denies: Cough, Shortness of Breath Gastrointestinal: Denies: Abdominal Pain Genitourinary: Reports: Retention. Denies: Dysuria Gynecological: Denies: Vaginal discharge, Vaginal itching Musculoskeletal: Denies: Muscle pain Skin: Denies: Rash Neurological: Reports: Balance problems, - - walks with walker due to MS Endocrine: Denies: Change in Body Habitus VTE Information - Inpt Only VTE Present on Admission: Yes VTE Mechan Device Prophylaxis: SCD's VTE Pharm Prophylaxis ordered?: No Reason prophylaxis not ordered:: Treatment Not Indicated Patient Problems: Active and Suspected Problems (Last Reviewed 07/22/18 @ 08:45 by Lidia Hines MD) Urinary retention (Acute) Neurogenic bladder (Acute) - Physical Exam General: Alert, Oriented x3, No apparent distress HEENT: Atraumatic, Normocephalic Oral: Moist Mucosa Neck: Supple, Trachea Midline Lungs: Clear to auscultation, Normal air movement Cardiovascular: Regular rate, Regular Rhythm Abdomen: Soft, Non Tender, Non-Distended Skin: No breakdown Musculoskeletal: No Muscle Wasting Neurological: Cranial nerves II-XII grossly intact Psych/Mental Status: Normal Affect, Alert and oriented to time, place, person, mood and affect Vital Signs Temp Pulse Resp BP Pulse Ox 97.3 F L 67 16 137/55 H 95 09/21/18 09:48 09/21/18 09:48 09/21/18 09:48 09/21/18 09:48 09/21/18 09:48 Oxygen Delivery Method Room Air Weight: 99 kg Body Mass Index (BMI) 39.9 Finger Stick Blood Glucose 108 Assessment/Plan All Active Problems (Last Reviewed 07/22/18 @ 08:45 by Lidia Hines MD) Urinary retention (Acute) Neurogenic bladder (Acute) Exacerbation of multiple sclerosis (Acute) Delirium (Acute) UTI (urinary tract infection) (Acute) DVT of lower extremity (deep venous thrombosis) (Resolved) Urinary retention due to neurogenic bladder and MS Stage 1 Interstim trial off anticoagulation for the last week.
--- NOTE | 2018-09-21 11:35 | PCM.OPRPT ---
Problem List (1) Urinary retention Status: Acute (2) Neurogenic bladder Status: Acute (3) Multiple sclerosis Status: Chronic Report of Operation Date of Procedure: 09/21/18 Pre-Operative Diagnosis: Urinary retention, Neurogenic bladder, multiple sclerosis Post-Operative Diagnosis: same Surgery/Procedure Performed:: Interstim Stage 1 Description of Surgical Findings:: good response on all leads, good A/P and lateral position on fluoroscopy. Type of Anesthesia:: MAC Special Medications: vancomycin Specimen's removed: none Estimated Blood Loss (mL): 5cc Description of Procedure: The patient is a 67-year-old female with urinary retention, neurogenic bladder and multiple sclerosis. She presented in the office and underwent evaluation with cystoscopy and urodynamics. She was also instructed on intermittent catheterization. She desired to proceed with a trial of InterStim given that she has a pacemaker and is unable to undergo MRI evaluations anyways. Informed consent was obtained. She was taken to the operating room and placed on the operating room table in prone position. Anesthesia monitored the head, neck, airway, IV access and vital signs throughout the case. Once anesthesia was appropriately administered the patient was prepped and draped in usual sterile fashion. Using fluoroscopic visualization the S3 foramen's were identified and marked on the skin. The right one was infiltrated with 1% lidocaine and intubated with a needle. Response was obtained and the skin incision was made, the area was dilated and the lead was passed using the curved stylette. And testing, all 4 leads achieved response with toe and not very good jen. The lead was then tunneled into the pocket site which was created using a knife and Bovie cautery for hemostatic control. At this point the lead was cleaned, the boot was placed and the lead in extension was attached using the torque wrench. The boot was secured using PDS. The lead extension was tunneled in a cephalad position. The incisions were then closed using both 3-0 interrupted suture followed by 4-0 subcuticular closure and Dermabond. The lead extension was attached into the battery and this was secured to the patient using an OpSite and cloth tape. The patient was awakened and taken to the recovery room in good condition. There were no complications. Grafts/Implants Used: Interstim Lead and lead extension - Complications none - Admit VTE Documentation VTE Present on Admission: No VTE Mechan Device Prophylaxis: None VTE Pharm Prophylaxis ordered?: No Reason prophylaxis not ordered:: Treatment Not Indicated
--- NOTE | 2018-09-21 11:40 | DCINST_ITS ---
Discharge Diet: No Restrictions Discharge Activity: May not drive while taking narcotic pain medications., - - do not get back wet May resume sexual activity in: 4 weeks Call your doctor if your incision/area has: Continuous Slow Oozing, Sudden Increased Bleeding, Increased Pain/ Swelling, Increased Redness, Foul Smelling Discharge Call your doctor if you observe: Fever of 101 or Higher, Inability to have a bowel movement, Shortness of breath, Chest pain, Calf discomfort, Uncontrolled pain Allergies/Adverse Reactions: Allergies glatiramer (copolymer 1) [From Copaxone] Allergy (Verified 09/20/18 08:07) Itching itching and redness surrounding injection site Medications to take at Discharge Apixaban [Eliquis] 5 mg PO BID 07/20/18 Aspirin [Aspirin, Baby] 81 mg PO DAILY@0800 07/20/18 Baclofen 2 tab PO QHS 07/20/18 Baclofen 20 mg PO BID 07/20/18 Carvedilol [Coreg] 12.5 mg PO BID 07/20/18 Cholecalciferol (Vitamin D3) [Vitamin D3] 2,000 unit PO DAILY 07/20/18 Fenofibrate [Tricor] 145 mg PO DAILY 07/20/18 Ferrous Sulfate 325 mg PO DAILY 07/20/18 Furosemide [Lasix] 40 mg PO MOWEFR 07/20/18 Gabapentin [Neurontin] 600 mg PO TIDCM 07/20/18 Linaclotide [Linzess] 72 mcg PO DAILY PRN 07/20/18 Losartan Potassium [Cozaar] 50 mg PO DAILY 07/20/18 Magnesium Oxide [Mag-Ox 400] 400 mg PO BID 07/20/18 Multivitamin [Multivitamins] 1 each PO DAILY 07/20/18 Pantoprazole Sodium [Protonix] 40 mg PO DAILY 07/20/18 Pravastatin Sodium 20 mg PO QHS 07/20/18 Rebif Injection 5 mg MOWEFR 07/20/18 Spironolactone 25 mg PO QHS 07/20/18 Sucralfate 1 gm PO QHS 07/20/18 Sucralfate 1 gm PO TIDCM 07/20/18 Cephalexin [Keflex] 250 mg PO QHS #30 capsule 07/22/18 Estradiol [Estrace] 1 gm VAGINAL QODAY #15 cream.appl 04/11/19 Primary Care Physician: Jamie Cruz MD [Primary Care Provider] - Test Results: Test results from this visit will be discussed in further detail at your follow- up appointment, if applicable. Please Follow Up With: Lidia Hines MD When: 2-3 days, call for appt. Proposed Discharge Date: 09/21/18
--- NOTE | 2018-09-21 11:47 | RAD_ITS ---
STUDY: X-RAY - PELVIS REASON FOR EXAM: Female, 67 years old. Intraoperative exam for pain therapy. TECHNIQUE: 2 views of the pelvic region were obtained intraoperatively on a C-arm. COMPARISON: None. FINDINGS: There is a pain management wire overlying the pelvic region. The examination was not performed for diagnostic purposes. The examination is nondiagnostic. The fluoroscopy time was 16.5 seconds. RAD/Pelvis 1 or 2 Views IMPRESSION: Intraoperative exam as described above. Electronically Signed: Williams Philippe MD at 12:28 EDT Tel , Service support ,
== END 2018-09-21 14:46 | disposition home or self-care (01) ==
LOC: SDC 09:20 → AC 09:55
PROVIDERS: Family Provider Family Medicine; PCP Family Medicine; Referring Provider Urology; Visit Provider Urology
PROC: (CPT 64581; principal; 2018-09-21 10:55)
DX: N31.9 Neuromuscular dysfunction of bladder, unspecified (principal); R33.9 Retention of urine, unspecified; G35 Multiple sclerosis; K21.9 Gastro-esophageal reflux disease without esophagitis; I25.2 Old myocardial infarction; E78.00 Pure hypercholesterolemia, unspecified; I48.91 Unspecified atrial fibrillation; I10 Essential (primary) hypertension; G47.33 Obstructive sleep apnea (adult) (pediatric); I25.10 Atherosclerotic heart disease of native coronary artery without angina pectoris; K58.9 Irritable bowel syndrome, unspecified; D50.9 Iron deficiency anemia, unspecified; E55.9 Vitamin D deficiency, unspecified; E66.01 Morbid (severe) obesity due to excess calories; Z68.39 Body mass index [BMI] 39.0-39.9, adult; Z95.0 Presence of cardiac pacemaker; Z95.1 Presence of aortocoronary bypass graft; Z86.718 Personal history of other venous thrombosis and embolism; Z86.711 Personal history of pulmonary embolism; Z79.82 Long term (current) use of aspirin; Z79.01 Long term (current) use of anticoagulants; Z79.899 Other long term (current) drug therapy; Z87.891 Personal history of nicotine dependence; Z86.73 Personal history of transient ischemic attack (TIA), and cerebral infarction without residual deficits
CPT/HCPCS: 00630; 64581; 72170; 76000; J7120; C1778; J3490

== ENCOUNTER 2018-10-05 07:05 | Day surgery (SDC) | payer MEDICARE, SELFPAY ==
[2018-07-20 13:02] VITALS: BMI 40.1
[2018-09-21 13:33] VITALS: BMI 40.1
[2018-10-05] VITALS (7 sets, daily range): BP systolic 140–156; BP diastolic 70–82; PULSE 79–88; RESP 16–20; TEMP 35.9–36.9; O2SAT 90–93; BMI 40.5
[2018-10-05] MEDS: Vancomycin IV 1,000 MG/200 ML BAG 200 MG IV (08:21)
--- NOTE | 2018-10-05 09:07 | DCINST_ITS ---
Discharge Diet: No Restrictions Discharge Activity: May not drive while taking narcotic pain medications., May Shower - on morning May resume sexual activity in: 2 weeks Call your doctor if your incision/area has: Continuous Slow Oozing, Sudden Increased Bleeding, Increased Pain/ Swelling, Increased Redness, Foul Smelling Discharge, Swelling at the incision site Call your doctor if you observe: Fever of 101 or Higher, Inability to urinate, Inability to have a bowel movement, Shortness of breath, Chest pain, Calf discomfort, Uncontrolled pain Suture Line Care: Avoid Pulling/Pushing Allergies/Adverse Reactions: Allergies glatiramer (copolymer 1) [From Copaxone] Allergy (Verified 10/01/18 11:48) Itching itching and redness surrounding injection site Medications to take at Discharge RX: Apixaban [Eliquis] 5 mg PO BID 07/20/18 RX: Aspirin [Aspirin, Baby] 81 mg PO DAILY@0800 07/20/18 RX: Baclofen 2 tab PO QHS 07/20/18 RX: Baclofen 20 mg PO BID 07/20/18 RX: Carvedilol [Coreg] 12.5 mg PO BID 07/20/18 RX: Cholecalciferol (Vitamin D3) [Vitamin D3] 2,000 unit PO DAILY 07/20/18 RX: Fenofibrate [Tricor] 145 mg PO DAILY 07/20/18 RX: Ferrous Sulfate 325 mg PO DAILY 07/20/18 RX: Furosemide [Lasix] 40 mg PO MOWEFR 07/20/18 RX: Gabapentin [Neurontin] 600 mg PO TIDCM 07/20/18 RX: Linaclotide [Linzess] 72 mcg PO DAILY PRN 07/20/18 RX: Losartan Potassium [Cozaar] 50 mg PO DAILY 07/20/18 RX: Magnesium Oxide [Mag-Ox 400] 400 mg PO BID 07/20/18 RX: Multivitamin [Multivitamins] 1 each PO DAILY 07/20/18 RX: Pantoprazole Sodium [Protonix] 40 mg PO DAILY 07/20/18 RX: Pravastatin Sodium 20 mg PO QHS 07/20/18 RX: Spironolactone 25 mg PO QHS 07/20/18 RX: Sucralfate 1 gm PO QHS 07/20/18 RX: Sucralfate 1 gm PO TIDCM 07/20/18 Rebif Injection 5 mg MOWEFR 07/20/18 RX: Cephalexin [Keflex] 250 mg PO QHS #30 capsule 07/22/18 RX: Estradiol [Estrace] 1 gm VAGINAL QODAY #15 cream.appl 07/22/18 Primary Care Physician: Jamie Cruz MD [Primary Care Provider] - Test Results: Test results from this visit will be discussed in further detail at your follow- up appointment, if applicable. Please Follow Up With: Lidia Hines MD When: call for an appt to be seen next week Proposed Discharge Date: 10/05/18
--- NOTE | 2018-10-05 09:43 | PCM.OPRPT ---
Problem List (1) Urinary retention Status: Acute (2) Neurogenic bladder Status: Acute (3) Multiple sclerosis Status: Chronic Report of Operation Date of Procedure: 10/05/18 Pre-Operative Diagnosis: Neurogenic bladder, urinary retention, multiple sclerosis Post-Operative Diagnosis: Same Surgery/Procedure Performed:: InterStim stage II Description of Surgical Findings:: IPG placed in the left buttocks, no impedances, no sign of infection. Type of Anesthesia:: MAC Special Medications: Vancomycin Description of Procedure: The patient is a 67-year-old female who had an InterStim stage I approximately 2 weeks ago. She is now been able to urinate with a postvoid residual that went from approximately 500 down to 60 cc. She has been able to stop catheterizing herself and is very pleased with the results. She presents today for implantation of the permanent IPG. Informed consent was obtained. Patient was taken to the operating room and placed in the operating room table in a prone position. All dependent portions of the body were appropriately padded and she was secured to the table. Anesthesia monitored the head, neck, airway, IV access and vital signs throughout the case. Once anesthesia was appropriately administered, the patient was prepped and draped in usual sterile fashion. Her existing incision over the boot was infiltrated with lidocaine and was then opened with a knife, Josebaums. The boot was identified and brought into the field. The lead extension was removed and the external wire was pulled from under the drape. At this time the pocket was enlarged and hemostasis was obtained using bipolar cautery. The lead was dried and inserted into the IPG and the torque wrench was used to secure it. The IPG was placed into the pocket and checked for impedances retrigger found to be 0. At this time the incision was closed using 3-0 interrupted Vicryl followed by 4-0 subcuticular sutures and then Dermabond was placed. The patient was then awakened and taken to the recovery room in good condition. There were no complications during this procedure. Grafts/Implants Used: IPG - Complications None - Admit VTE Documentation VTE Present on Admission: Yes VTE Mechan Device Prophylaxis: SCD's VTE Pharm Prophylaxis ordered?: No Reason prophylaxis not ordered:: Treatment Not Indicated
== END 2018-10-05 11:04 | disposition home or self-care (01) ==
LOC: SDC 07:06 → AC 07:07
PROVIDERS: Family Provider Family Medicine; PCP Family Medicine; Referring Provider Urology; Visit Provider Urology
PROC: (CPT 64590; principal; 2018-10-05 08:40)
DX: N31.9 Neuromuscular dysfunction of bladder, unspecified (principal); R33.9 Retention of urine, unspecified; G35 Multiple sclerosis; I25.10 Atherosclerotic heart disease of native coronary artery without angina pectoris; I25.2 Old myocardial infarction; I48.91 Unspecified atrial fibrillation; I10 Essential (primary) hypertension; K21.9 Gastro-esophageal reflux disease without esophagitis; E78.5 Hyperlipidemia, unspecified; G47.33 Obstructive sleep apnea (adult) (pediatric); K58.9 Irritable bowel syndrome, unspecified; D50.9 Iron deficiency anemia, unspecified; E55.9 Vitamin D deficiency, unspecified; E66.01 Morbid (severe) obesity due to excess calories; Z68.39 Body mass index [BMI] 39.0-39.9, adult; Z95.0 Presence of cardiac pacemaker; Z95.1 Presence of aortocoronary bypass graft; Z86.718 Personal history of other venous thrombosis and embolism; Z86.711 Personal history of pulmonary embolism; Z79.82 Long term (current) use of aspirin; Z79.01 Long term (current) use of anticoagulants; Z79.899 Other long term (current) drug therapy; Z87.891 Personal history of nicotine dependence
CPT/HCPCS: 64590; J7120; C1767; J2405

== ENCOUNTER → 2019-01-04 08:25 | Outpatient (CLI) | payer MEDICARE, SELFPAY ==
[2018-10-05 07:22] VITALS: BMI 40.5
[2019-01-04 08:56] VITALS: BP 137/75; PULSE 69; RESP 16; TEMP 36.9; O2SAT 97; BMI 39.1
== END ==
PROVIDERS: Family Provider Family Medicine; PCP Family Medicine; Referring Provider Psychiatry & Neurology Neurology; Visit Provider Psychiatry & Neurology Neurology
DX: G35 Multiple sclerosis (principal)
CPT/HCPCS: 96365; 96366; J7050; A4216; J2930

== ENCOUNTER → 2019-01-05 10:47 | Outpatient (CLI) | payer MEDICARE, SELFPAY ==
[2019-01-04 08:56] VITALS: BMI 39.1
[2019-01-05 11:00] VITALS: BP 138/66; PULSE 70; RESP 18; TEMP 36.4; O2SAT 93; BMI 39.1
== END ==
PROVIDERS: Family Provider Family Medicine; PCP Family Medicine; Referring Provider Psychiatry & Neurology Neurology; Visit Provider Psychiatry & Neurology Neurology
DX: G35 Multiple sclerosis (principal)
CPT/HCPCS: 96365; J7050; A4216; J2930

== ENCOUNTER → 2019-01-06 13:21 | Outpatient (CLI) | payer MEDICARE, SELFPAY ==
[2019-01-04 08:56] VITALS: BMI 39.1
[2019-01-05 11:00] VITALS: BMI 39.1
[2019-01-06 15:01] VITALS: BP 123/72; PULSE 65; RESP 16; TEMP 36.3; O2SAT 92; BMI 39.1
== END ==
PROVIDERS: Family Provider Family Medicine; PCP Family Medicine; Referring Provider Psychiatry & Neurology Neurology; Visit Provider Psychiatry & Neurology Neurology
DX: G35 Multiple sclerosis (principal)
CPT/HCPCS: 96365; J7050; A4216; J2930

== ENCOUNTER → 2019-09-01 13:44 | Outpatient (CLI) | payer MEDICARE, SELFPAY ==
[2019-01-06 15:01] VITALS: BMI 39.1
[2019-09-01 14:14] VITALS: BP 121/50; PULSE 73; RESP 16; TEMP 36.7; O2SAT 95; BMI 40.2
[2019-09-01] MEDS: 0.9% NaCl IVPB Med Flush (250 mL) 15 ML IV (14:29)
[2019-09-01] MEDS: 0.9% NaCl Peripheral Flush Adult/Peds IV (14:34)
[2019-09-01 15:48] VITALS: BP 112/57; PULSE 70; RESP 16
== END ==
PROVIDERS: PCP Family Medicine
DX: G35 Multiple sclerosis (principal)
CPT/HCPCS: 96365; J7050; A4216; J2930

== ENCOUNTER → 2019-09-02 13:48 | Outpatient (CLI) | payer MEDICARE, SELFPAY ==
[2019-01-06 15:01] VITALS: BMI 39.1
[2019-09-01 14:14] VITALS: BMI 40.2
[2019-09-02 13:57] VITALS: BP 124/62; PULSE 85; RESP 16; TEMP 36.4; O2SAT 96; BMI 40.2
[2019-09-02] MEDS: 0.9% NaCl IVPB Med Flush (250 mL) 15 ML IV (14:47)
[2019-09-02] MEDS: 0.9% NaCl Peripheral Flush Adult/Peds IV (14:50)
== END ==
PROVIDERS: PCP Family Medicine
DX: G35 Multiple sclerosis (principal)
CPT/HCPCS: 96365; J7050; A4216; J2930

== ENCOUNTER → 2019-09-06 13:45 | Outpatient (CLI) | payer MEDICARE, SELFPAY ==
[2019-01-06 15:01] VITALS: BMI 39.1
[2019-09-02 13:57] VITALS: BMI 40.2
[2019-09-06] MEDS: 0.9% NaCl IVPB Med Flush (250 mL) 15 ML IV (14:26)
[2019-09-06 14:31] VITALS: BP 137/59; PULSE 78; RESP 16; TEMP 36.2; O2SAT 95; BMI 40.2
[2019-09-06] MEDS: 0.9% NaCl Peripheral Flush Adult/Peds IV (14:31)
== END ==
PROVIDERS: PCP Family Medicine
DX: G35 Multiple sclerosis (principal)
CPT/HCPCS: 96365; J7050; A4216; J2930

== ENCOUNTER → 2019-09-07 13:40 | Outpatient (CLI) | payer MEDICARE, SELFPAY ==
[2019-01-06 15:01] VITALS: BMI 39.1
[2019-09-06 14:31] VITALS: BMI 40.2
[2019-09-07 13:55] VITALS: BP 150/77; PULSE 85; RESP 16; TEMP 36.5; O2SAT 96; BMI 40.2
[2019-09-07] MEDS: 0.9% NaCl IVPB Med Flush (250 mL) 15 ML IV (14:24)
[2019-09-07] MEDS: 0.9% NaCl Peripheral Flush Adult/Peds IV (14:24)
[2019-09-07 15:47] VITALS: BP 157/86; PULSE 73
== END ==
PROVIDERS: PCP Family Medicine
DX: G35 Multiple sclerosis (principal)
CPT/HCPCS: 96365; J7050; A4216; J2930

== ENCOUNTER → 2019-09-08 13:44 | Outpatient (CLI) | payer MEDICARE, SELFPAY ==
[2019-01-06 15:01] VITALS: BMI 39.1
[2019-09-07 13:55] VITALS: BMI 40.2
[2019-09-08 13:55] VITALS: BP 155/66; PULSE 72; RESP 16; TEMP 36.6; O2SAT 97; BMI 40.2
[2019-09-08] MEDS: 0.9% NaCl IVPB Med Flush (250 mL) 15 ML IV (14:00)
[2019-09-08] MEDS: 0.9% NaCl Peripheral Flush Adult/Peds IV (14:01)
== END ==
PROVIDERS: PCP Family Medicine
DX: G35 Multiple sclerosis (principal)
CPT/HCPCS: 96365; J7050; A4216; J2930

== ENCOUNTER → 2019-10-27 10:16 | Outpatient (CLI) | payer MEDICARE, SELFPAY ==
[2019-09-08 13:55] VITALS: BMI 40.2
[2019-10-27 10:41] LABS: Absolute Lymphocyte Count 1.39 X10^3/uL (0.83-4.51); Absolute Neutrophil Count 3.4 X10^3/uL (2.0-7.7); Basophil# 0.02 X10^3/uL; Basophil% 0.4 % (0-1); Eosinophil# 0.12 X10^3/uL; Eosinophils% 2.2 % (0-5); Hematocrit 38.4 % (37-47); Hemoglobin 11.5 g/dL (12.0-15.0); Lymphocyte # 1.39 X10^3/ul (4.0); Lymphocyte % 25.6 % (19-41); Mean Corp Hgb Conc 29.9 g/dL (32-36); Mean Corpuscular Hgb 26.8 pg (27.0-32.0); Mean Corpuscular Volume 89.5 fL (81-99); Mean Platelet Vol. 10.6 fl (6.2-12.0); Monocyte% 9.2 % (0-10); NRBC Flagged by Analyzer 0 % (0-5); Neutrophil # 3.39 X10^3/uL (2.7-7.7); Neutrophil % 62.2 % (47-70); Platelet Count 268 K/mm3 (150-450); RBC Distribution Width SD 48.4 fl (35.1-43.9); Red Blood Count 4.29 M/mm3 (4.2-5.4); White Blood Count 5.4 K/mm3 (4.4-11.0)
== END ==
PROVIDERS: PCP Family Medicine
DX: G35 Multiple sclerosis (principal)
CPT/HCPCS: 36415; 85025

== ENCOUNTER → 2020-02-27 09:39 | Outpatient (CLI) | payer MEDICARE, SELFPAY ==
[2019-09-08 13:55] VITALS: BMI 40.2
[2020-02-27 10:14] LABS: Hematocrit 39.5 % (37-47); Mean Corp Hgb Conc 30.4 g/dL (32-36); Mean Corpuscular Hgb 26.5 pg (27.0-32.0); Mean Corpuscular Volume 87.4 fL (81-99); Mean Platelet Vol. 10.4 fl (6.2-12.0); Platelet Count 308 K/mm3 (150-450); RBC Distribution Width CV 14.6 % (11.6-14.6); RBC Distribution Width SD 46.8 fl (35.1-43.9); Red Blood Count 4.52 M/mm3 (4.2-5.4); White Blood Count 7.3 K/mm3 (4.4-11.0)
[2020-02-27 10:48] LABS: ALB/GLOB Ratio 0.8 RATIO (0.9-2.4); AST(SGOT) 15 U/L (15-37); Alanine Aminotransfer ALT/SGPT 32 U/L (13-56); Albumin, Serum 3.4 g/dL (3.2-5.0); Alkaline Phosphatase 72 U/L (45-117); Anion Gap 7 (5-15); BUN 22 mg/dL (7-18); BUN/Creat Ratio 23.5 RATIO (10-20); Calcium,Total 10.3 mg/dL (8.5-10.1); Chloride 106 mmol/L (98-107); Cholesterol 146 mg/dL (200); Creatinine, Serum 0.94 mg/dL (0.55-1.02); EST Glomerular Filtration Rate 63 mL/min (>60); Est Glom Filt Rate - Afr Amer 76 mL/min (>60); Globulin 4.2 g/dL (2.2-4.2); Glucose 102 mg/dL (74-106); High Density Lipoprotein 30 mg/dL; Magnesium 2.2 mg/dL (1.6-2.6); Potassium 4.3 mmol/L (3.5-5.1); Protein, Total 7.6 g/dL (6.4-8.2); Sodium Level 140 mmol/L (136-145); Triglycerides 154 mg/dL; Very Low Density Lipoprotein 31 mg/dL (5-40)
== END ==
PROVIDERS: PCP Family Medicine
DX: I25.10 Atherosclerotic heart disease of native coronary artery without angina pectoris (principal); I11.0 Hypertensive heart disease with heart failure; I50.9 Heart failure, unspecified; I48.91 Unspecified atrial fibrillation; Z95.1 Presence of aortocoronary bypass graft; Z95.0 Presence of cardiac pacemaker
CPT/HCPCS: 36415; 80053; 80061; 83735; 85027

== ENCOUNTER → 2020-03-27 13:48 | Outpatient (CLI) | payer MEDICARE, SELFPAY ==
[2019-09-08 13:55] VITALS: BMI 40.2
[2020-03-27 14:13] VITALS: BP 140/89; PULSE 80; TEMP 37; BMI 40.2
[2020-03-27] MEDS: 0.9% NaCl Peripheral Flush Adult/Peds IV ×2 (14:54→15:48)
[2020-03-27] MEDS: 0.9% NaCl IVPB Med Flush (250 mL) 15 ML IV (14:54)
== END ==
PROVIDERS: PCP Family Medicine
DX: G35 Multiple sclerosis (principal)
CPT/HCPCS: 96365; J7050; A4216; J2930

== ENCOUNTER → 2020-03-28 11:49 | Outpatient (CLI) | payer MEDICARE, SELFPAY ==
[2019-09-08 13:55] VITALS: BMI 40.2
[2020-03-27 14:13] VITALS: BMI 40.2
[2020-03-28 12:20] VITALS: BP 147/65; PULSE 88; RESP 16; TEMP 36.6; O2SAT 95; BMI 40.2
[2020-03-28] MEDS: 0.9% NaCl IVPB Med Flush (250 mL) 15 ML IV (12:27)
[2020-03-28] MEDS: 0.9% NaCl Peripheral Flush Adult/Peds IV ×2 (12:27→13:27)
[2020-03-28 13:25] VITALS: BP 147/68; PULSE 81; RESP 18; TEMP 37.1; O2SAT 95
== END ==
PROVIDERS: PCP Family Medicine
DX: G35 Multiple sclerosis (principal)
CPT/HCPCS: 96365; J7050; A4216; J2930

== ENCOUNTER → 2020-03-29 10:50 | Outpatient (CLI) | payer MEDICARE, SELFPAY ==
[2020-03-27 14:13] VITALS: BMI 40.2
[2020-03-28 12:20] VITALS: BMI 40.2
[2020-03-29 10:56] VITALS: PULSE 70; RESP 18; TEMP 36.6; O2SAT 96; BMI 40.2
[2020-03-29] MEDS: 0.9% NaCl Peripheral Flush Adult/Peds IV (11:27)
[2020-03-29] MEDS: 0.9% NaCl IVPB Med Flush (250 mL) 15 ML IV (11:27)
[2020-03-29 12:07] VITALS: BP 138/58; PULSE 67; RESP 18; TEMP 37.1; O2SAT 98
== END ==
PROVIDERS: PCP Family Medicine
DX: G35 Multiple sclerosis (principal)
CPT/HCPCS: 96365; J7050; A4216; J2930

== ENCOUNTER → 2020-03-30 09:47 | Outpatient (CLI) | payer MEDICARE, SELFPAY ==
[2020-03-27 14:13] VITALS: BMI 40.2
[2020-03-29 10:56] VITALS: BMI 40.2
[2020-03-30] MEDS: 0.9% NaCl IVPB Med Flush (250 mL) 15 ML IV (10:18)
[2020-03-30] MEDS: 0.9% NaCl Peripheral Flush Adult/Peds IV (10:19)
[2020-03-30 10:26] VITALS: BP 128/56; PULSE 63; RESP 16; TEMP 35.8; O2SAT 98; BMI 40.2
[2020-03-30 11:16] VITALS: BP 124/67; PULSE 68
== END ==
PROVIDERS: PCP Family Medicine
DX: G35 Multiple sclerosis (principal)
CPT/HCPCS: 96365; J7050; A4216; J2930

== ENCOUNTER → 2020-03-31 10:57 | Outpatient (CLI) | payer MEDICARE, SELFPAY ==
[2020-03-27 14:13] VITALS: BMI 40.2
[2020-03-30 10:26] VITALS: BMI 40.2
[2020-03-31] MEDS: 0.9% NaCl IVPB Med Flush (250 mL) 15 ML IV (08:41)
[2020-03-31] MEDS: 0.9% NaCl Peripheral Flush Adult/Peds IV (08:42)
[2020-03-31 09:25] VITALS: BP 146/66; PULSE 65; RESP 16; TEMP 36.8; O2SAT 95; BMI 40.2
[2020-03-31 10:12] VITALS: BP 153/71; PULSE 63; RESP 16; TEMP 36.8; O2SAT 95
== END ==
PROVIDERS: PCP Family Medicine
DX: G35 Multiple sclerosis (principal)
CPT/HCPCS: 96365; J7050; A4216; J2930

== ENCOUNTER → 2020-07-30 08:41 | Outpatient (CLI) | payer MEDICARE, SELFPAY ==
[2020-07-30 09:57] LABS: Absolute Lymphocyte Count 2.17 X10^3/uL (0.83-4.51); Absolute Neutrophil Count 3.8 X10^3/uL (2.0-7.7); Basophil# 0.02 X10^3/uL; Basophil% 0.3 % (0-1); Eosinophil# 0.16 X10^3/uL; Eosinophils% 2.4 % (0-5); Hematocrit 41.5 % (37-47); Hemoglobin 12.7 g/dL (12.0-15.0); Lymphocyte # 2.17 X10^3/ul (0.83-4.51); Lymphocyte % 32.6 % (19-41); Mean Corp Hgb Conc 30.6 g/dL (32-36); Mean Corpuscular Hgb 26.5 pg (27.0-32.0); Mean Corpuscular Volume 86.5 fL (81-99); Mean Platelet Vol. 10.7 fl (6.2-12.0); Monocyte# 0.53 X10^3/uL; NRBC Flagged by Analyzer 0 % (0-5); Neutrophil # 3.75 X10^3/uL (2.7-7.7); Neutrophil % 56.4 % (47-70); Platelet Count 307 K/mm3 (150-450); RBC Distribution Width CV 14.6 % (11.6-14.6); RBC Distribution Width SD 46.5 fl (35.1-43.9); White Blood Count 6.7 K/mm3 (4.4-11.0)
[2020-07-30 10:21] LABS: Vitamin B12 503 pg/mL (211-911)
[2020-07-30 11:00] LABS: ALB/GLOB Ratio 0.9 RATIO (0.9-2.4); AST(SGOT) 17 U/L (15-37); Alanine Aminotransfer ALT/SGPT 36 U/L (13-56); Albumin, Serum 3.5 g/dL (3.2-5.0); Alkaline Phosphatase 80 U/L (45-117); Anion Gap 6 (5-15); BUN 19 mg/dL (7-18); BUN/Creat Ratio 23.8 RATIO (10-20); Calcium,Total 10.4 mg/dL (8.5-10.1); Chloride 108 mmol/L (98-107); EST Glomerular Filtration Rate 75 mL/min (>60); Est Glom Filt Rate - Afr Amer 91 mL/min (>60); Glucose 112 mg/dL (74-106); Magnesium 2.1 mg/dL (1.6-2.6); Potassium 4.2 mmol/L (3.5-5.1); Protein, Total 7.5 g/dL (6.4-8.2); Sodium Level 140 mmol/L (136-145); Thyroid Stim Hormone (TSH) 3.05 uIU/mL (0.358-3.74)
[2020-08-01 17:08] LABS: Vitamin D 1,25-Dihydroxy 81.7 pg/mL (19.9-79.3)
== END ==
PROVIDERS: PCP Family Medicine; Referring Provider Psychiatry & Neurology Neurology; Visit Provider Psychiatry & Neurology Neurology
DX: G35 Multiple sclerosis (principal); I10 Essential (primary) hypertension; E55.9 Vitamin D deficiency, unspecified
CPT/HCPCS: 36415; 80053; 82607; 82652; 82746; 83735; 84443; 85025

== ENCOUNTER → 2020-08-02 14:34 | Outpatient (CLI) | payer MEDICARE, SELFPAY ==
--- NOTE | 2020-08-02 14:36 | CT_ITS ---
STUDY: CT BRAIN WITHOUT CONTRAST REASON FOR EXAM: Female, 69 years old. Family hx of cerebral aneurysm, multiple sclerosis. RADIATION DOSAGE (If Supplied By Facility): CTDIvol = ( 44.99 ) mGy, DLP = ( 734.24 ) mGycm TECHNIQUE: Transaxial CT imaging of the brain was performed without administration of intravenous contrast material. Individualized dose optimization techniques were used for this CT. COMPARISON: July 20, 2018 FINDINGS: Normal soft tissue structures. Normal calvarium. Normal size ventricles and extra-axial spaces for the patient''s age. Normal white matter tracts of the cerebral hemispheres. Normal basal ganglia and thalami. Normal brainstem. Normal cerebellum. There is no intracranial hemorrhage. There are no findings of an acute ischemic infarction. Normal visualized paranasal sinuses. CT/Brain/Head without Contrast IMPRESSION: Normal unenhanced CT scan of the brain. Electronically Signed: Rachid Norwood MD at 16:18 EDT , Service support ,
--- NOTE | 2020-08-02 15:54 | NURSING ---
1525 159/122, po2 96 at room air, paced rythmn, pt became diaphoretic and nauseated just not feeling right ct had just finished her ct without contrast, no contrast was given, pt was sat up, she stated she felt like she would pass out with lying flat, brought from waiting room, pt cool and clammy, pale in color, changed into a gown (sweat shirt removed), iv flushed, 1535 bp 129/88 pulse o2 at 94% room air, no change in condition, called ER room was obtained and report given to Sophia Muller RN, pt transported via cart, with patient. n
== END ==
PROVIDERS: PCP Family Medicine; Referring Provider Psychiatry & Neurology Neurology; Visit Provider Psychiatry & Neurology Neurology
DX: Z13.89 Encounter for screening for other disorder (principal); Z82.49 Family history of ischemic heart disease and other diseases of the circulatory system; G35 Multiple sclerosis; I10 Essential (primary) hypertension; E55.9 Vitamin D deficiency, unspecified
CPT/HCPCS: 70450; A4216

== ENCOUNTER 2020-08-02 15:44 | Inpatient (IN) | payer MEDICARE, SELFPAY ==
[2020-08-02] VITALS (7 sets, daily range): BP systolic 119–167; BP diastolic 56–95; PULSE 60–79; RESP 14–20; TEMP 36.4; O2SAT 91–95; BMI 41.9
[2020-08-02 15:50] LABS: Bedside Glucose 92 mg/dL (70-110)
--- NOTE | 2020-08-02 16:08 | EKG12_ITS ---
Test Reason : Blood Pressure : / mmHG Vent. Rate : 065 BPM Atrial Rate : 065 BPM P-R Int : 178 ms QRS Dur : 148 ms QT Int : 456 ms P-R-T Axes : 032 179 084 degrees QTc Int : 474 ms Atrial-sensed ventricular-paced rhythm Biventricular pacemaker detected Abnormal ECG Confirmed by NETO NUNEZ, BAL ([id number]), purchase request editor HARMAN DÍAZ ([id number]) on 08/06/2020 9:36:26 AM Referred By: BEN Confirmed By:DIA DUQUE MD
[2020-08-02] MEDS: Ondansetron 4 MG/2 ML Vial IV (16:28)
[2020-08-02 16:36] LABS: Absolute Lymphocyte Count 2.44 X10^3/uL (0.83-4.51); Basophil# 0.04 X10^3/uL; Basophil% 0.6 % (0-1); Eosinophil# 0.09 X10^3/uL; Eosinophils% 1.5 % (0-5); Hematocrit 40.3 % (37-47); Hemoglobin 12.4 g/dL (12.0-15.0); Lymphocyte # 2.44 X10^3/ul (0.83-4.51); Lymphocyte % 39.4 % (19-41); Mean Corp Hgb Conc 30.8 g/dL (32-36); Mean Corpuscular Hgb 26.6 pg (27.0-32.0); Mean Corpuscular Volume 86.3 fL (81-99); Mean Platelet Vol. 10.4 fl (6.2-12.0); Monocyte# 0.63 X10^3/uL; Monocyte% 10.2 % (0-10); NRBC Flagged by Analyzer 0 % (0-5); Neutrophil # 2.99 X10^3/uL (2.7-7.7); Neutrophil % 48.1 % (47-70); Platelet Count 294 K/mm3 (150-450); RBC Distribution Width CV 14.4 % (11.6-14.6); RBC Distribution Width SD 45.4 fl (35.1-43.9); Red Blood Count 4.67 M/mm3 (4.2-5.4); White Blood Count 6.2 K/mm3 (4.4-11.0)
--- NOTE | 2020-08-02 16:40 | RAD_ITS ---
STUDY: X-RAY CHEST REASON FOR EXAM: Female, 69 years old. Weakness TECHNIQUE: Single AP portable view of the chest. COMPARISON: July 20, 2018 FINDINGS: There is dual-chamber pacemaker device on the left in satisfactory position. There are monitoring devices. There are mild lower lung linear increased opacities. There is no demonstrated pleural abnormality. Sternal cerclage wires are present from a prior sternotomy. Normal mediastinum and judy. Normal visualized pulmonary arteries. Normal visualized aortic arch and descending thoracic aorta. There is demineralization of the osseous structures. Normal visualized ribs, clavicles, and shoulders. There is no demonstrated abnormality of the visualized soft tissue structures of the upper abdomen. RAD/Chest 1 View (Portable) IMPRESSION: Mild lower lung edema or atelectasis. Electronically Signed: Rachid Norwood MD at 16:55 EDT , Service support ,
[2020-08-02 16:58] LABS: ALB/GLOB Ratio 0.8 RATIO (0.9-2.4); AST(SGOT) 30 U/L (15-37); Alanine Aminotransfer ALT/SGPT 40 U/L (13-56); Albumin, Serum 3.3 g/dL (3.2-5.0); Alkaline Phosphatase 74 U/L (45-117); Anion Gap 4 (5-15); BUN 15 mg/dL (7-18); BUN/Creat Ratio 20.2 RATIO (10-20); Chloride 112 mmol/L (98-107); Creatinine, Serum 0.74 mg/dL (0.55-1.02); EST Glomerular Filtration Rate 82 mL/min (>60); Est Glom Filt Rate - Afr Amer 99 mL/min (>60); Estimated Creatinine Clearance 40.81 ml/min; Globulin 4.3 g/dL (2.2-4.2); Glucose 84 mg/dL (74-106); Potassium 4.4 mmol/L (3.5-5.1); Protein, Total 7.6 g/dL (6.4-8.2); Sodium Level 138 mmol/L (136-145)
--- NOTE | 2020-08-02 17:02 | ED.DCSUM_ITS ---
History of Present Illness Chief Complaint: Syncope Informant: Patient, Significant Other Onset: Today Context: Sudden Onset Narrative: Patient is a 69-year-old female with history of MS, heart disease at questionable dementia presenting with from CT. Patient had just had a CT of her brain and was to get a CTA of her head, this was ordered by her neurologist, when she started lay started to feel like she was going to pass out. 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 She had not received any contrast yet. Patient states she still feels funny and off. She does not know she is ever felt like this before. She denies any chest pain or discomfort. She denies any shortness of breath. She denies any other complaints at this time. Past Medical History - Allergies and Home Meds Allergies/Adverse Reactions: Allergies glatiramer (copolymer 1) [From Copaxone] Allergy (Verified 08/02/20 15:47) Itching itching and redness surrounding injection site Past Medical History: - - Coronary artery disease, DVT, pacemaker, multiple sclerosis, REBECCA, hyperlipidemia, hypertension Surgical History: coronary bypass surgery, hysterectomy - with BL oophorectomy in her 20's for an ovarian mass., pacemaker implantation, rotator cuff repair - Right shoulder, - Smoking Status: Former smoker - Family History Sibling Family History: Family History (Last Reviewed 07/26/20 @ 09:15 by Michelle Garduno) Mother Diabetes Myocardial infarction Father Cancer Brother Cancer Sister MS CVA (cerebral vascular accident) Myocardial infarction Cervical cancer Family History: Reports: Diabetes, Heart Disease, Hypertension, - - Uterine canc er in her sister Maternal Family History: Family History (Last Reviewed 07/26/20 @ 09:15 by Michelle Garduno) Mother Diabetes Myocardial infarction Father Cancer Brother Cancer Sister MS CVA (cerebral vascular accident) Myocardial infarction Cervical cancer Family History: Reports: Diabetes, High Cholesterol, Heart Disease, Hypertension Paternal Family History: Family History (Last Reviewed 07/26/20 @ 09:15 by Michelle Garduno) Mother Diabetes Myocardial infarction Father Cancer Brother Cancer Sister MS CVA (cerebral vascular accident) Myocardial infarction Cervical cancer Family History: Reports: Cancer Review of Systems General: Reports: Malaise. Denies: Chills, Fever, Sweats Eyes: Denies: Visual changes - bilaterally, Diplopia ENT: Denies: Rhinorrhea, Sore throat Cardiovascular: Denies: Chest pain, Palpitations Respiratory: Reports: Dyspnea, Dyspnea on exertion. Denies: Cough Gastrointestinal: Reports: Nausea. Denies: Abdominal pain, Vomiting, Diarrhea Genitourinary: Denies: Dysuria, Hematuria, Frequency Musculoskeletal: Reports: - - Right foot drop?chronic. Denies: Back pain, Extremity Pain Skin: Denies: Rash, Wounds Neurological: Denies: Headache, Weakness, Numbness Physical Exam Vital Signs/Narrative: Vital Signs Temp Pulse Resp BP Pulse Ox 08/02/20 16:56 67 18 138/61 H 92 08/02/20 15:47 97.6 F L 66 20 H 147/75 H 93 Inital Vital Signs reviewed: Yes General: Well nourished, Well developed, Obese, No Acute Distress Head: Normocephalic, Atraumatic Eyes: Perrl, EOMI ENT: Moist mucous membranes, No rhinorrhea Neck: Supple, Nontender. Negative for: No JVD Cardiovascular: Regular rate, Regular rhythm, No murmurs Respiratory: No distress, Chest nontender, Diminished Abdomen: Soft, Nontender, Nondistended, Normal bowel sounds Back: Nontender, Normal Inspection Extremities: Nontender, No edema Skin: Normal color, No rash Neurological: Alert, Oriented x3, Cranial nerves II-XII grossly intact, Normal Strength, Normal Sensation Psychological: Normal affect, Normal Mood Diagnostic/Tx/Re-eval Chest X-Ray - ED: 1 View, Read by ED Physician, Read by Radiologist, CHF Clinical Impression(s) from Imaging Studies Chest X-Ray 08/02/20 16:40 IMPRESSION: Mild lower lung edema or atelectasis. Electronically Signed: Rachid Norwood MD at 16:55 EDT , Service support , Laboratory Data 08/02/20 08/02/20 08/02/20 15:47 16:24 16:24 WBC 6.2 RBC 4.67 Hgb 12.4 Hct 40.3 MCV 86.3 MCH 26.6 L MCHC 30.8 L RDW Std Deviation 45.4 H RDW Coeff of Rainer 14.4 Plt Count 294 MPV 10.4 Immature Gran % (Auto) 0.200 Neut % (Auto) 48.1 Lymph % (Auto) 39.4 Mills % (Auto) 10.2 H Eos % (Auto) 1.5 Baso % (Auto) 0.6 Absolute Neuts (auto) 3.0 Absolute Lymphs (auto) 2.44 Nucleated RBC % 0 D-Dimer Quant (PE/DVT) Sodium 138 Potassium 4.4 Chloride 112 H Carbon Dioxide 22.0 Anion Gap 4 L BUN 15 Creatinine 0.74 Estim Creat Clear Calc 40.81 Est GFR (MDRD) Af Amer 99 Est GFR (MDRD) Non-Af 82 BUN/Creatinine Ratio 20.2 H Glucose 84 Calcium 10.0 Total Bilirubin 0.30 AST 30 ALT 40 Alkaline Phosphatase 74 Troponin I < 0.015 B-Natriuretic Peptide Total Protein 7.6 Albumin 3.3 Globulin 4.3 H Albumin/Globulin Ratio 0.8 L Urine Color Urine Clarity Urine pH Ur Specific [place] Urine Protein Urine Glucose (UA) Urine Ketones Urine Occult Blood Urine Nitrite Urine Bilirubin Urine Urobilinogen Ur Leukocyte Esterase Urine RBC Urine WBC Ur Squamous Epith Cells Urine Bacteria Urine Mucus POC Glucose 92 08/02/20 08/02/20 08/02/20 17:50 20:47 20:47 WBC RBC Hgb Hct MCV MCH MCHC RDW Std Deviation RDW Coeff of Rainer Plt Count MPV Immature Gran % (Auto) Neut % (Auto) Lymph % (Auto) Mills % (Auto) Eos % (Auto) Baso % (Auto) Absolute Neuts (auto) Absolute Lymphs (auto) Nucleated RBC % D-Dimer Quant (PE/DVT) < 0.27 L Sodium Potassium Chloride Carbon Dioxide Anion Gap BUN Creatinine Estim Creat Clear Calc Est GFR (MDRD) Af Amer Est GFR (MDRD) Non-Af BUN/Creatinine Ratio Glucose Calcium Total Bilirubin AST ALT Alkaline Phosphatase Troponin I < 0.015 B-Natriuretic Peptide Total Protein Albumin Globulin Albumin/Globulin Ratio Urine Color Yellow Urine Clarity Clear Urine pH 6.0 Ur Specific [place] 1.015 Urine Protein Negative Urine Glucose (UA) Normal Urine Ketones Negative Urine Occult Blood Negative Urine Nitrite Negative Urine Bilirubin Negative Urine Urobilinogen Normal Ur Leukocyte Esterase Negative Urine RBC 0 SEEN Urine WBC 0 SEEN Ur Squamous Epith Cells 0 SEEN Urine Bacteria 0 SEEN Urine Mucus 0 SEEN POC Glucose 08/02/20 20:47 WBC RBC Hgb Hct MCV MCH MCHC RDW Std Deviation RDW Coeff of Rainer Plt Count MPV Immature Gran % (Auto) Neut % (Auto) Lymph % (Auto) Mills % (Auto) Eos % (Auto) Baso % (Auto) Absolute Neuts (auto) Absolute Lymphs (auto) Nucleated RBC % D-Dimer Quant (PE/DVT) Sodium Potassium Chloride Carbon Dioxide Anion Gap BUN Creatinine Estim Creat Clear Calc Est GFR (MDRD) Af Amer Est GFR (MDRD) Non-Af BUN/Creatinine Ratio Glucose Calcium Total Bilirubin AST ALT Alkaline Phosphatase Troponin I B-Natriuretic Peptide 102.8 H Total Protein Albumin Globulin Albumin/Globulin Ratio Urine Color Urine Clarity Urine pH Ur Specific [place] Urine Protein Urine Glucose (UA) Urine Ketones Urine Occult Blood Urine Nitrite Urine Bilirubin Urine Urobilinogen Ur Leukocyte Esterase Urine RBC Urine WBC Ur Squamous Epith Cells Urine Bacteria Urine Mucus POC Glucose - Rhythm Strip Rhythm Strip: Sinus Rhythm Rate: 65 Ectopy: None - EKG Initial EKG Interpretation: Paced, - - Atrial sensed ventricular paced rhythm at a rate of 65 Left axis T wave inversion in aVL Compared to prior EKG on 07/20/2018 patient has no acute changes - Medical Decision Making Patient evaluated after a near syncopal episode when she tried to lay down for CT of her brain. Patient's initial presentation was concerning for vasovagal. Given her cardiac history cardiac arrhythmia is also on the differential. Exam is pretty nonspecific. Chest x-ray does show some edema of the bases bilaterally. On reevaluation patient is noted to be about 90% on room air with good waveform. She states that she has been having some increased dyspnea on exertion and shortness of breath lately. I wonder patient had orthopnea that caused her episode on the CT table is actually fluid overloaded. Her troponin is negative. Patient's D-dimer is negative. Patient is ambulated and desaturates to 88% on room air. Given that she is symptomatic and has multiple comorbidities she will be admitted for likely CHF exacerbation. She does not have physis with pneumonia in the ER. She is not given antibiotics. Covid test is obtained which is negative. ED Disposition - Plan for ED Patient: Disposition: Acute Care [facility] Diagnosis: Exertional dyspnea, Hypoxia, Near syncope, CAD (coronary artery disease)
[2020-08-02 17:54] LABS: Bacteria 0 SEEN /hpf (None Seen); Mucous, Urine 0 SEEN /hpf (<or=2+); Red Blood Cells-Urine 0 SEEN /hpf (0-5); Squamous Epithelial Cells - UA 0 SEEN /hpf (5-10); White Blood Cells 0 SEEN /hpf (0-5)
[2020-08-02 18:10] LABS: Color, Urine Yellow (Yellow); Glucose, Dipstick Normal (Normal); Ketone-Dipstick Negative (Negative); Leukocyte Esterase-Dipstick Negative /ul (Negative); Nitrite-Dipstick Negative (Negative); Occult Blood-Urine Negative /ul (Negative); Protein-Dipstick Negative (Negative); Specific Gravity, Urine 1.015 (1.002-1.030); Urine Bilirubin Dipstick Negative (Negative); Urine Clarity Clear (Clear); Urine Urobilinogen Normal (Normal)
--- NOTE | 2020-08-02 20:00 | ED.RN ---
blood rejected. lab notified of difficult draw. they stated they will come up to obtain bloodwork.
[2020-08-02 21:07] LABS: D-Dimer Quantitative (DVT/PE) < 0.27 FEU/ug/m (0.27-0.49)
[2020-08-02 21:15] LABS: BNP,B-Type NATRIURETIC PEPTIDE 102.8 pg/mL (0-100)
--- NOTE | 2020-08-02 21:47 | HP.PCM_ITS ---
Problem List (1) Near syncope Status: Acute (2) Hypoxia Status: Acute (3) Exertional dyspnea Status: Acute (4) Urinary retention Status: Chronic (5) Neurogenic bladder Status: Chronic (6) Multiple sclerosis Status: Chronic (7) Morbid obesity Status: Chronic (8) HTN (hypertension) Status: Chronic Qualifiers: Hypertension type: essential hypertension Qualified Code(s): I10 - Essen tial (primary) hypertension (9) CAD (coronary artery disease) Status: Chronic Qualifiers: Coronary Disease-Associated Artery/Lesion type: [place] artery [place] vs. transplanted heart: unspecified whether pilot station or transplanted heart Associated angina: unspecified whether angina present Qualified Code(s): I25.10 - Atherosclerotic heart disease of [place] coronary artery without angina pectoris (10) S/P CABG x 2 Status: Chronic (11) GERD (gastroesophageal reflux disease) Status: Chronic Qualifiers: Esophagitis presence: esophagitis presence not specified Qualified Code(s): K21.9 - Gastro-esophageal reflux disease without esophagitis (12) HLD (hyperlipidemia) Status: Chronic Qualifiers: Hyperlipidemia type: unspecified Qualified Code(s): E78.5 - Hyperlipidemia, unspecified (13) REBECCA (obstructive sleep apnea) Status: Chronic Comment: Compliant with CPAP (14) Pacemaker Status: Chronic (15) IBS (irritable bowel syndrome) Status: Chronic Qualifiers: Irritable bowel syndrome type: unspecified Qualified Code(s): K58.9 - Irritable bowel syndrome without diarrhea History of Present Illness Date of Admission: 08/02/20 Chief Complaint: Near syncope, hypoxia, exertional dyspnea. The patient is a 69 y/o F w/ PMHx: Multiple Sclerosis, Possible underlying dementia unclear type with unclear behavioral disturbance history, CAD s/p CABG x 2, s/p pacemaker status, Hx ovarian mass s/p FAISAL w/ BLSOO, REBECCA on CPAP q HS, Morbid Obesity, Hx DVT on eliquis therapy, IBS, Hx urinary retention with chronic UTI with self catheterization (secondary to MS) w/ 10/05/[address] Hines (neuromodulation device), Reported Chronic Diastolic CHF who presents to the [facility] ED on 08/02/20 with history of onset while attempting to obtain CT head/CTA head secondary to recent worsening confusion over the last 1- 2 weeks with near syncope sensation with sensation of being very hot, sudden onset diaphoresis and nausea immediately following with sensation that she was going to pass out but did note with referral to the ED. Patient blood sugar assessment during this episode was noted to be 92. In the ED patient noted she has been having dyspnea, worse with exertion over the past 1-2 weeks with no recent cough, fever, chills, nausea, emesis, abdominal pain, chest pain, body aches or any other COVID type symptoms with no weight gain or worsening edema to her extremities. She chronically sleeps upright secondary to back issues. She was recently evaluated per her PCP secondary to recent confusion which is why the CT head was ordered. Patient in the ED following oxygen supplementation notes feeling improved. Work-up in the ED included T 97.6, heart rate 66, BP 147/75, respiratory rate 20, 92 to 93% on room air however with ambulation in the ED had notable hypoxia < 88%, CBC with WBC 6.2, hemoglobin 12.4, platelet 294 without marked shift, CMP with chloride 112, BUN/creatinine 15/0.74, troponin less than 0.015 with repeat delta troponin less than 0.015, hepatic profile not marked appearing, urinalysis unremarkable, chest x-ray with mild lower lung edema or atelectasis, BNP 102.8, D-dimer less than 0.27. In the ED patient ministered Zofran therapy. COVID rapid and PCR pending per ED. Past Medical History Past Medical History (Chronic Problems): Chronic Problems (Last Reviewed 07/26/20 @ 09:15 by Michelle Garduno) Urinary retention (Chronic) Neurogenic bladder (Chronic) Multiple sclerosis (Chronic) Morbid obesity (Chronic) HTN (hypertension) (Chronic) CAD (coronary artery disease) (Chronic) S/P CABG x 2 (Chronic) GERD (gastroesophageal reflux disease) (Chronic) HLD (hyperlipidemia) (Chronic) REBECCA (obstructive sleep apnea) (Chronic) Compliant with CPAP Pacemaker (Chronic) Urine retention (Chronic) off an on...has self cath'd in the past Chronic anticoagulation (Chronic) Eliquis IBS (irritable bowel syndrome) (Chronic) Medical History: Medical History (Last Reviewed 07/26/20 @ 09:15 by Michelle Garduno) Back pain M54.9 CAD (coronary artery disease) I25.10 Cardiac pacemaker Z95.0 DVT (deep venous thrombosis) I82.409 GERD (gastroesophageal reflux disease) K21.9 Hyperlipidemia E78.5 Iron deficiency anemia D50.9 Multiple sclerosis G35 Diagnosed in 1969 Neuropathic pain M79.2 REBECCA (obstructive sleep apnea) G47.33 Pulmonary embolism I26.99 RUQ pain R10.11 Vitamin D deficiency E55.9 Hypertension I10 Allergies glatiramer (copolymer 1) [From Copaxone] Allergy (Verified 08/02/20 15:47) Itching itching and redness surrounding injection site Home Medications: Ambulatory Orders Medication Instructions Recorded Apixaban [Eliquis] 5 mg PO BID 07/20/18 Aspirin [Aspirin, Baby] 81 mg PO DAILY@0800 07/20/18 Carvedilol [Coreg] 12.5 mg PO BID 07/20/18 Fenofibrate [Tricor] 145 mg PO DAILY 07/20/18 Ferrous Sulfate 65 mg PO DAILY 07/20/18 Losartan Potassium [Cozaar] 50 mg PO DAILY 07/20/18 Magnesium Oxide [Mag-Ox 400] 400 mg PO BID 07/20/18 Multivitamin [Multivitamins] 1 each PO DAILY 07/20/18 Pravastatin Sodium 20 mg PO QHS 07/20/18 Rebif Injection 5 mg MOWEFR 07/20/18 Spironolactone 25 mg PO QHS 07/20/18 ascorbic acid (vitamin C) 1,000 mg 1 gm PO DAILY tablet 07/25/20 tablet cholecalciferol (vitamin D3) 125 125 mcg PO DAILY 07/25/20 mcg (5,000 unit) capsule cranberry extract 500 mg capsule 500 mg PO DAILY cap 07/25/20 esomeprazole magnesium 40 mg 40 mg PO DAILY 07/25/20 capsule,delayed release baclofen 20 mg tablet See Rx Instructions .ROUTE 07/26/20 .COMPLEX #360 tablet dimethyl fumarate 240 mg 240 mg PO BID #180 cap 07/26/20 capsule,delayed release Gabapentin 800 mg PO TID 08/02/20 Surgical History: Surgical History (Last Reviewed 07/26/20 @ 09:15 by Michelle Garduno) History of appendectomy Z90.49 History of carpal tunnel release Z98.890 history double bypass cardiac surgery Surgical History: coronary bypass surgery, hysterectomy - with BL oophorectomy in her 20's for an ovarian mass., pacemaker implantation, rotator cuff repair - Right shoulder, - - CABG x2, carpal tunnel release, appendectomy, hysterectomy with bilateral salpingo-oophorectomy, pacemaker implantation, placement IPG. Psychiatric History: No pertinent psych hx RELIEF OPERATOR History: No pertinent RELIEF OPERATOR history Lives: Spouse/ Significant Other Smoking Status: Former smoker - Quit cigarette tobacco usage April 1968, smoked approximately 20 years. Tobacco Use: Non-smoker Alcohol: Rare Drugs: None - *Family History Sibling Family History: Family History (Last Reviewed 07/26/20 @ 09:15 by Michelle Garduno) Mother Diabetes Myocardial infarction Father Cancer Brother Cancer Sister MS CVA (cerebral vascular accident) Myocardial infarction Cervical cancer History Items: Diabetes, Heart Disease, Hypertension, - - Uterine cancer in her sister Maternal Family History: Family History (Last Reviewed 07/26/20 @ 09:15 by Michelle Garduno) Mother Diabetes Myocardial infarction Father Cancer Brother Cancer Sister MS CVA (cerebral vascular accident) Myocardial infarction Cervical cancer History Items: Diabetes, High Cholesterol, Heart Disease, Hypertension Paternal Family History: Family History (Last Reviewed 07/26/20 @ 09:15 by Michelle Garduno) Mother Diabetes Myocardial infarction Father Cancer Brother Cancer Sister MS CVA (cerebral vascular accident) Myocardial infarction Cervical cancer History Items: Cancer Review of Systems Constitutional: Reports: Malaise, Weakness, Fatigue. Denies: Anorexia, Chills, Fever, Weight Change HEENT: Denies: Head Aches, Sinus Congestion, Sinus Drainage Cardiovascular: Reports: - - Near syncope. Denies: Chest Pain, Chest Pressure, Chest Tightness, Light Headedness, Orthopnea, Palpitations Respiratory: Reports: Shortness of Breath, Shortness of breath at rest, Shortness of breath upon exertion. Denies: Cough, Sputum production, Wheezing Gastrointestinal: Reports: Nausea. Denies: Abdominal Pain, Vomiting Genitourinary: Reports: Retention. Denies: Dysuria Musculoskeletal: Reports: Back Pain, Joint Pain. Denies: Joint Tenderness Skin: Denies: Rash, Wounds Neurological: Reports: - - Underlying MS.. Denies: Focal weakness, Numbness, Tingling Psychiatric: Denies: Anxiety, Depression, Homicidal Ideations, Suicidal Ideations Hematologic/ Lymphatic: Reports: Anemia, Easy Bruising, Easy Bleeding, Hx of blood clot VTE Information - Inpt Only VTE Present on Admission: No VTE Mechan Device Prophylaxis: SCD's VTE Pharm Prophylaxis ordered?: No Reason prophylaxis not ordered:: Treatment Not Indicated - Continue home eliquis regimen. Subjective: Patient seated upright in the bed, fatigued appearing, notes feeling improved since usage of oxygen given notable ongoing hypoxia. Objective: Physical Examination: General: awake, alert, oriented x 3 including to self, place, recent events, notes feeling more herself, cooperative, seated upright in the ED bed, notes less confused and can think better with oxygen supplementation as had been decently hypoxic. Feels improved from recent near syncope sensation in CT scanner. Skin: normal color, turgor, no icterus, cyanosis. HEENT: AT/NC, EOMI, PERRLA, MMM, no carotid bruits, difficult to discern JVD secondary to thickened neck with morbidly obese habitus. Lungs: Diminished breath sounds but clear to auscultation bilaterally, appropriate effort, mentioned coarse breath sounds upon initial ED physician evaluation no longer present, no noted rales, ronchi or wheezing. Heart: Regular rate and rhythm/paced; no gallop, rub audible. Abdomen: soft, morbidly obese, NTTP, ND, normal BS, no HSM. Extremities: no cyanosis, clubbing, or edema. Neurological: patient awake, alert, oriented as noted; cognitive function improving, more baseline per herself and ; pupils equally reactive to light and accomodation; cranial nerves II-XII grossly normal, moving all 4 extremities, no focal deficits, strength moderately global decrease secondary to acute presentation, complaints and underlying comorbidities. Psychiatric: affect appears fatigued otherwise normal, no acute evidence of depressive or anxiety feelings. - Physical Exam Vitals/I&O's: Vital Signs Temp Pulse Resp BP Pulse Ox 97.6 F L 67 14 119/56 L 91 08/02/20 15:47 08/02/20 19:36 08/02/20 19:36 08/02/20 19:36 08/02/20 19:36 Oxygen Delivery Method Room Air Weight: 229 lb 4.492 oz Body Mass Index (BMI) 41.9 Finger Stick Blood Glucose 92 Intake and Output for Last 24 Hours 07/31/20 08/01/20 08/02/20 23:59 23:59 23:59 Intake Total 500 / 500 Balance 500 / 500 Laboratory Results 08/02/20 15:47: POC Glucose 92 08/02/20 16:24: WBC 6.2, RBC 4.67, Hgb 12.4, Hct 40.3, MCV 86.3, MCH 26.6 L, MCHC 30.8 L, RDW Std Deviation 45.4 H, RDW Coeff of Rainer 14.4, Plt Count 294, MPV 10.4, Immature Gran % (Auto) 0.200, Neut % (Auto) 48.1, Lymph % (Auto) 39.4, [place] % (Auto) 10.2 H, Eos % (Auto) 1.5, Baso % (Auto) 0.6, Absolute Neuts (auto) 3.0, Absolute Lymphs (auto) 2.44, Nucleated RBC % 0 08/02/20 16:24: Sodium 138, Potassium 4.4, Chloride 112 H, Carbon Dioxide 22.0, Anion Gap 4 L, BUN 15, Creatinine 0.74, Estim Creat Clear Calc 40.81, Est GFR (MDRD) Af Amer 99, Est GFR (MDRD) Non-Af 82, BUN/Creatinine Ratio 20.2 H, Glucose 84, Calcium 10.0, Total Bilirubin 0.30, AST 30, ALT 40, Alkaline Phosphatase 74, Troponin I < 0.015, Total Protein 7.6, Albumin 3.3, Globulin 4.3 H, Albumin/Globulin Ratio 0.8 L 08/02/20 17:50: Urine Color Yellow, Urine Clarity Clear, Urine pH 6.0, Ur Specific [place] 1.015, Urine Protein Negative, Urine Glucose (UA) Normal, Urine Ketones Negative, Urine Occult Blood Negative, Urine Nitrite Negative, Urine Bilirubin Negative, Urine Urobilinogen Normal, Ur Leukocyte Esterase Negative, Urine RBC 0 SEEN, Urine WBC 0 SEEN, Ur Squamous Epith Cells 0 SEEN, Urine Bacteria 0 SEEN, Urine Mucus 0 SEEN 08/02/20 20:47: Troponin I < 0.015 08/02/20 20:47: D-Dimer Quant (PE/DVT) < 0.27 L 08/02/20 20:47: B-Natriuretic Peptide 102.8 H Assessment/Plan All Active Problems (Last Reviewed 07/26/20 @ 09:15 by Michelle Garduno) Near syncope (Acute) Hypoxia (Acute) Exertional dyspnea (Acute) Exacerbation of multiple sclerosis (Acute) Delirium (Acute) UTI (urinary tract infection) (Acute) DVT of lower extremity (deep venous thrombosis) (Resolved) The patient is a 69 y/o F w/ PMHx: Multiple Sclerosis, Possible underlying dementia unclear type with unclear behavioral disturbance history, CAD s/p CABG x 2, s/p pacemaker status, REBECCA on CPAP q HS, Morbid Obesity, Hx DVT on eliquis therapy, IBS, Reported Chronic Diastolic CHF who presents to the [facility] ED on 08/02/20 with history of onset while attempting to obtain CT head/CTA head secondary to recent worsening confusion over the last 1-2 weeks with near syncope sensation with sensation of being very hot, sudden onset diaphoresis and nausea immediately following with sensation that she was going to pass out but did note with referral to the ED. 1. Recent near syncopal sensation, hypoxia, exertional dyspnea with questionable acute on chronic diastolic CHF versus developing PNA, Unclear Specific Etiology: 07/21/18 ECHO w/ mildly dilated LV, EF 55%, stage I diastolic dysfunction, RVSP 19 mmHg, chest x-ray with questionable mid lower lung edema versus atelectasis, patient with some hypoxia noted to be 91 to 93% on room air but dropped to < 88% with ambulation and suspect this is likely recent etiology for worsened confusion, BNP only minimally elevated, will continue patient home aspirin, Eliquis, Coreg, losartan, spironolactone and dose IV Lasix x1 with plan repeat chest x-ray in a.m., continue serial cardiac enzyme trending, repeat EKGs as needed, given echo last done 2019 will request repeat. Will repeat orthostatic vital signs in AM. Will maintain on oxygen with wean as tolerated to room air, PRN albuterol, request sputum cultures, respiratory viral panel and urine antigens. As noted ED pending rapid and PCR COVID testing. Additionally requested pacer interrogation. PT, OT, case management consultation for discharge planning. Procalcitonin pending. 2. CAD: Status post CABG x2, status post pacemaker placement, interrogation requested, continue patient aspirin, Eliquis, Coreg, losartan, statin therapy. 3. Possible underlying dementia, unclear type with unclear behavioral disturbance history: Noted in history prior to recent increased confusion events which likely have been related to her ongoing hypoxia. Prior histories with noted dementia listed, maintain on fall precautions, therapies consulted as noted. 4. History of ovarian mass: Patient status post total abdominal hysterectomy with bilateral salpingo-oophorectomy. 5. Chronic iron deficiency: Admission hemoglobin 12.4, stable, continue iron supplementation. 6. Hypertension: Continue home regimen including Coreg, losartan, spironolactone with hold parameters especially given presentation, PRN hydralazine. 7. Hyperlipidemia: Continue home statin and TriCor regimen. 8. History of PE/DVT, recurrent: We will continue patient home Eliquis regimen. 9. Morbid Obesity: Weight loss and lifestyle changes encouraged, nutrition consulted. 10. Multiple sclerosis with history of prior urinary retention and chronic UTIs: Patient with history of self-catheterization, status post 10/05/[address] Hines, will continue catheterization home self regimen if ongoing, noted Rebif injections which will be deferred to outpatient, continue baclofen, fall precautions. 11. REBECCA: Nightly CPAP. 12. DVT prophylaxis: SCDs, continue home Eliquis regimen. 13. CODE status: Patient HCPJESSICA is her who is present and living will is currently in place. Discussed CODE status at length including difference between FULL code, DNR-CCA and DNR-CC status. Following discussions about the differences in these status, requested Full Code. She does note preference to transition to comfort care if she would need prolonged futile care. Advanced Care Planning Face to Face Time: 16 minutes. Inpatient E&M: 08445 Init Hosp L3 Procedures: 69059 Advncd Care Plan 30 Min
[2020-08-03] VITALS (14 sets, daily range): BP systolic 116–157; BP diastolic 47–87; PULSE 63–82; RESP 18–20; TEMP 36.4–37.1; O2SAT 91–97; BMI 40.1
--- NOTE | 2020-08-03 00:49 | ECHOCS_ITS ---
Reason For Study: CHF Procedure This was a 2D Doppler, Color Flow transthoracic echocardiogram. Contrast injection was performed. The study was technically difficult. Exam performed portable in patient room. Left Ventricle Normal LV size. The estimated ejection fraction is 55 %. No evidence for diastolic dysfunction. No regional wall motion abnormalities noted. Right Ventricle Normal RV size. There is a pacemaker lead in the right ventricle. Normal systolic function. Atria Normal left atrium. Normal right atrium. No doppler evidence for ASD. Mitral Valve There is no mitral valve stenosis. No mitral valve insufficiency. Tricuspid Valve There is no tricuspid stenosis. Trivial tricuspid valve insufficiency. Unable to estimate RV systolic pressure due to insufficient tricuspid regurgitant envelope. Aortic Valve Trisinus/trileaflet aortic valve. There is no aortic stenosis. No aortic valve insufficiency. Pulmonic Valve There is no pulmonic valvular stenosis. No pulmonic valve insufficiency. Great Vessels Normal aortic root. Pericardium/Pleural No pericardial effusion. Medication Diluted definity 2ml given slow IV push to enhance endocardial definition. MMode/2D Measurements & Calculations LVIDd: 5.4 cm IVSd: 1.1 cm Ao root diam: 3.0 cm LVIDs: 3.2 cm LVPWd: 1.1 cm FS: 42.2 % LAV(MOD-bp): 25.0 ml LVAd ap4: 24.1 cm2 SV(MOD-sp4): 46.2 ml LAV(MOD-bp) Indexed: 12.6 ml/m2 LVLd ap4: 6.8 cm LAV(MOD-sp2): 25.8 ml EDV(MOD-sp4): 70.9 ml LAV(MOD-sp4): 24.2 ml EDV(sp4-el): 72.3 ml LVAs ap4: 13.4 cm2 LVLs ap4: 6.3 cm ESV(MOD-sp4): 24.8 ml ESV(sp4-el): 24.4 ml EF(MOD-sp4): 65.1 % EF(sp4-el): 66.3 % SV(sp4-el): 48.0 ml LA A4 area: 11.7 cm2 LA dimension(2D): 3.5 cm RA A4 area: 11.9 cm2 Doppler Measurements & Calculations MV E max redd: 52.8 cm/sec Lat Peak E' Redd: 5.7 cm/sec Med Peak E' Redd: 5.4 cm/sec MV A max redd: 86.7 cm/sec E/E' lat: 9.3 E/E' med: 9.9 MV E/A: 0.61 Ao V2 max: 81.2 cm/sec LV V1 max: 96.4 cm/sec PA V2 max: 83.5 cm/sec Ao max P.6 mmHg LV V1 max P.7 mmHg Ao V2 mean: 57.6 cm/sec Ao mean P.4 mmHg Ao V2 VTI: 16.0 cm TR max redd: 245.5 cm/sec TR max P.1 mmHg ECHO/Echo Complete W/ Contrast Interpretation Summary The estimated ejection fraction is 55 %. No evidence for diastolic dysfunction. The study was technically difficult. Contrast injection was performed. Ordering Physician: Vonda Galan Referring Physician: Jamie Cruz Performed By: Michelle Butler, MAIN, RVT
[2020-08-03 01:16] LABS: Magnesium 2.1 mg/dL (1.6-2.6)
[2020-08-03] MEDS: Pravastatin 20 MG Tablet PO ×2 (01:30→21:53)
[2020-08-03] MEDS: Gabapentin 800 MG Tablet PO ×4 (01:30→16:44)
[2020-08-03] MEDS: Spironolactone 25 MG Tablet PO ×2 (01:30→21:53)
[2020-08-03] MEDS: Furosemide 40 MG/4 ML Vial IV (01:30)
[2020-08-03 02:35] LABS: Procalcitonin 0.05 ng/mL (0.00-0.09)
[2020-08-03] MEDS: Baclofen 10 MG Tablet 40 MG PO (02:48)
[2020-08-03 02:55] LABS: Absolute Lymphocyte Count 2.88 X10^3/uL (0.83-4.51); Absolute Neutrophil Count 4.2 X10^3/uL (2.0-7.7); Basophil# 0.03 X10^3/uL; Basophil% 0.4 % (0-1); Eosinophil# 0.06 X10^3/uL; Eosinophils% 0.8 % (0-5); Hematocrit 41.3 % (37-47); Hemoglobin 12.7 g/dL (12.0-15.0); Lymphocyte # 2.88 X10^3/ul (0.83-4.51); Lymphocyte % 36.5 % (19-41); Mean Corp Hgb Conc 30.8 g/dL (32-36); Mean Corpuscular Hgb 26.5 pg (27.0-32.0); Mean Platelet Vol. 10.4 fl (6.2-12.0); Monocyte# 0.67 X10^3/uL; Monocyte% 8.5 % (0-10); NRBC Flagged by Analyzer 0 % (0-5); Neutrophil # 4.23 X10^3/uL (2.7-7.7); Neutrophil % 53.5 % (47-70); Platelet Count 329 K/mm3 (150-450); RBC Distribution Width CV 14.4 % (11.6-14.6); RBC Distribution Width SD 45.6 fl (35.1-43.9); White Blood Count 7.9 K/mm3 (4.4-11.0)
[2020-08-03 04:06] LABS: ALB/GLOB Ratio 0.9 RATIO (0.9-2.4); AST(SGOT) 20 U/L (15-37); Alanine Aminotransfer ALT/SGPT 40 U/L (13-56); Albumin, Serum 3.6 g/dL (3.2-5.0); Alkaline Phosphatase 76 U/L (45-117); Anion Gap 4 (5-15); BUN 14 mg/dL (7-18); BUN/Creat Ratio 15.7 RATIO (10-20); Calcium,Total 10.3 mg/dL (8.5-10.1); Chloride 109 mmol/L (98-107); Cholesterol 140 mg/dL (200); Creatinine, Serum 0.89 mg/dL (0.55-1.02); EST Glomerular Filtration Rate 66 mL/min (>60); Est Glom Filt Rate - Afr Amer 80 mL/min (>60); Estimated Creatinine Clearance 45.85 ml/min; Globulin 4.2 g/dL (2.2-4.2); Glucose 112 mg/dL (74-106); High Density Lipoprotein 33 mg/dL; Potassium 3.9 mmol/L (3.5-5.1); Protein, Total 7.8 g/dL (6.4-8.2); Sodium Level 141 mmol/L (136-145); Thyroid Stim Hormone (TSH) 2.36 uIU/mL (0.358-3.74); Triglycerides 143 mg/dL; Very Low Density Lipoprotein 29 mg/dL (5-40)
[2020-08-03] MEDS: Losartan Potassium 50 MG Tablet PO (09:26)
[2020-08-03] MEDS: Fenofibrate 145 MG Tablet PO (09:26)
[2020-08-03] MEDS: Pantoprazole Sodium 40 MG Tablet PO (09:26)
[2020-08-03] MEDS: APIXABAN 5 MG TABLET PO ×2 (09:26→21:53)
[2020-08-03] MEDS: Aspirin 81 MG TAB.CHEW PO (09:26)
[2020-08-03] MEDS: Ferrous Sulfate 325 MG Tablet PO (09:26)
[2020-08-03] MEDS: Carvedilol 12.5 MG Tablet PO ×2 (09:26→21:53)
--- NOTE | 2020-08-03 10:55 | CASEMGMT ---
GI CM Face to Face with patient for initial transition planning/care coordination assessment. RN CM introduced self and role at [facility]. Patient lying in bed, alert and oriented, at bedside. Patient willing to participate in assessment and is able to answer all questions appropriately. Care providers, pharmacy, and demographics verified. Patient wishes to discharge home, denies need for home health at this time. Patient states she has no further needs or concerns at this time. CM to follow for discharge planning needs that may arise. PCP: Nancy Specialists: Anjel, automation application engineer; Bryn, neurologist; Jim, oracle ascp consultant Preferred Pharmacy: [facility] Insurance: [employer] Prescription Benefit: yes Living Will/HPOA: yes, [place] Albright LNOK: , daughter Living Arrangements: Patient lives with in 1 story and ramp to enter to home. Patient states she is independent at home. Transportation: DME/HHC: Patient states she has shower chair, rollator, wheelchair and power chair, and Cpap at home. Patient denies previous HHC. Disposition Plan: Patient to discharge home with family support and follow-up plan in place. Phyllis MOYER, RN, CM
--- NOTE | 2020-08-03 11:20 | PN_ITS ---
<Nevaeh Hughes BROKER IN CHARGE - Last Filed: 08/03/20 11:32> Patient Problems: Active and Suspected Problems (Last Reviewed 07/26/20 @ 09:15 by Michelle wang) Near syncope (Acute) Hypoxia (Acute) Exertional dyspnea (Acute) Subjective: Patient seen and examined. Denies shortness of breath at rest. Denies swelling, weight gain. Denies cough, fever, chills. States shortness of breath has been with exertion over the past 2 weeks. - Physical Exam Vitals/I&O's: Vital Signs Temp Pulse Resp BP Pulse Ox 98.5 F 75 18 116/65 95 08/03/20 09:02 08/03/20 09:02 08/03/20 09:02 08/03/20 09:02 08/03/20 09:02 Oxygen Delivery Method Room Air Weight: 216 lb 4.375 oz Body Mass Index (BMI) 40.1 Finger Stick Blood Glucose 92 Orthostatic Vital Signs Start: 08/03/20 02:35 Freq: q24h Status: Active Protocol: Activity Type Activity Date Activity User E-Sign Co-Sign Detail Recorded Client Recorded Date Recorded By Document 08/03/20 03:10 RUSS [id number] 08/03/20 03:47 RUSS 08/03/20 03:10 Orthostatic Vitals Standing -Blood Pressure (90/60-120/80) 149/74 H -Extremity Use Right Arm -Pulse Rate (60-100) 79 Sitting -Blood Pressure (90/60-120/80) 150/68 H -Extremity Use Right Arm -Pulse Rate (60-100) 69 Lying -Blood Pressure (90/60-120/80) 139/69 H -Extremity Use Right Arm -Pulse Rate (60-100) 67 Intake and Output for Last 24 Hours 08/01/20 08/02/20 08/03/20 23:59 23:59 23:59 Intake Total 500 / 500 Balance 500 / 500 General: Alert, Oriented x3, Cooperative HEENT: Atraumatic, PERRLA, EOMI, Normocephalic Neck: Supple, No JVD, Negative Carotid Bruits Lungs: Clear to auscultation, Diminished Cardiovascular: Regular rate, No murmurs Abdomen: Bowel Sounds Present, Soft, Non Tender, Non-Distended, Obese Extremities: No clubbing, No cyanosis, No edema, Capillary Refill Less than 3 Seconds Skin: No rashes, No breakdown Musculoskeletal: No Tenderness to Palpation of Joints or Extremities Neurological: Cranial nerves II-XII grossly intact, Neuro grossly intact Psych/Mental Status: Normal Affect, Appropriate Microbiology Past 72 Hours 08/03/20 00:55 Mucosa - Nasopharyngeal Respiratory Panel (PCR) - Final 08/02/20 17:50 Urine, Clean Catch Streptococcus pneumoniae Antigen (M - Final 08/02/20 17:50 Urine, Clean Catch Legionella Antigen - Final 08/02/20 21:59 Nasal Secretion SARS-CoV-2 Antigen (Rapid) - Final Laboratory Results 08/02/20 15:47: POC Glucose 92 08/02/20 16:24: WBC 6.2, RBC 4.67, Hgb 12.4, Hct 40.3, MCV 86.3, MCH 26.6 L, MCHC 30.8 L, RDW Std Deviation 45.4 H, RDW Coeff of Rainer 14.4, Plt Count 294, MPV 10.4, Immature Gran % (Auto) 0.200, Neut % (Auto) 48.1, Lymph % (Auto) 39.4, [place] % (Auto) 10.2 H, Eos % (Auto) 1.5, Baso % (Auto) 0.6, Absolute Neuts (auto) 3.0, Absolute Lymphs (auto) 2.44, Nucleated RBC % 0 08/02/20 16:24: Sodium 138, Potassium 4.4, Chloride 112 H, Carbon Dioxide 22.0, Anion Gap 4 L, BUN 15, Creatinine 0.74, Estim Creat Clear Calc 40.81, Est GFR (MDRD) Af Amer 99, Est GFR (MDRD) Non-Af 82, BUN/Creatinine Ratio 20.2 H, Glucose 84, Calcium 10.0, Total Bilirubin 0.30, AST 30, ALT 40, Alkaline Phosphatase 74, Troponin I < 0.015, Total Protein 7.6, Albumin 3.3, Globulin 4.3 H, Albumin/Globulin Ratio 0.8 L 08/02/20 17:50: Urine Color Yellow, Urine Clarity Clear, Urine pH 6.0, Ur Specific [place] 1.015, Urine Protein Negative, Urine Glucose (UA) Normal, Urine Ketones Negative, Urine Occult Blood Negative, Urine Nitrite Negative, Urine Bilirubin Negative, Urine Urobilinogen Normal, Ur Leukocyte Esterase Negative, Urine RBC 0 SEEN, Urine WBC 0 SEEN, Ur Squamous Epith Cells 0 SEEN, Urine Bacteria 0 SEEN, Urine Mucus 0 SEEN 08/02/20 20:47: Troponin I < 0.015 08/02/20 20:47: D-Dimer Quant (PE/DVT) < 0.27 L 08/02/20 20:47: B-Natriuretic Peptide 102.8 H 08/02/20 22:05: COVID-19 (JON) Not Detected 08/03/20 02:45: WBC 7.9, RBC 4.80, Hgb 12.7, Hct 41.3, MCV 86.0, MCH 26.5 L, MCHC 30.8 L, RDW Std Deviation 45.6 H, RDW Coeff of Rainer 14.4, Plt Count 329, MPV 10.4, Immature Gran % (Auto) 0.300, Neut % (Auto) 53.5, Lymph % (Auto) 36.5, [place] % (Auto) 8.5, Eos % (Auto) 0.8, Baso % (Auto) 0.4, Absolute Neuts (auto) 4.2, Absolute Lymphs (auto) 2.88, Nucleated RBC % 0 08/03/20 02:45: Sodium 141, Potassium 3.9, Chloride 109 H, Carbon Dioxide 28.0, Anion Gap 4 L, BUN 14, Creatinine 0.89, Estim Creat Clear Calc 45.85, Est GFR (MDRD) Af Amer 80, Est GFR (MDRD) Non-Af 66, BUN/Creatinine Ratio 15.7, Glucose 112 H, Calcium 10.3 H, Total Bilirubin 0.20, AST 20, ALT 40, Alkaline Phosphatase 76, Total Protein 7.8, Albumin 3.6, Globulin 4.2, Albumin/Globulin Ratio 0.9, Triglycerides 143, Cholesterol 140, LDL Cholesterol 78, VLDL Cholesterol 29, HDL Cholesterol 33 L, TSH 2.36 08/03/20 02:45: Troponin I < 0.015 08/03/20 : Magnesium 2.1 08/03/20 : Procalcitonin 0.05 Current Medications Acetaminophen (Acetaminophen 325 Mg Tablet) 650 mg PO Q6H PRN PRN PRN Reason: Pain Score 1-10/Temp > 100.7 F Al Hydroxide/Mg Hydroxide (Mag Hydrox/Al Hydrox/Simeth 30 Ml Udc) 30 ml PO Q6H PRN PRN PRN Reason: Gastric Burning Albuterol Sulfate (Albuterol 2.5 Mg/3 Ml Vial.Neb.) 2.5 mg INHALATION Q2H PRN PRN PRN Reason: Dyspnea, wheezing Apixaban (Apixaban 5 Mg Tablet) 5 mg PO BID FORMERLY [facility], [facility] Last Admin: 08/03/20 09:26 Dose: 5 mg Documented by: Aspirin (Aspirin 81 Mg Tab.Chew) 81 mg PO DAILY@0800 FOR[facility]LY [facility], [facility] Last Admin: 08/03/20 09:26 Dose: 81 mg Documented by: Baclofen (Baclofen 10 Mg Tablet) 20 mg PO 0600,1400 PRN PRN Reason: SPASMS Baclofen (Baclofen 10 Mg Tablet) 40 mg PO QHS PRN PRN PRN Reason: SPASMS Last Admin: 08/03/20 02:48 Dose: 40 mg Documented by: Carvedilol (Carvedilol 12.5 Mg Tablet) 12.5 mg PO BID FOR[facility]LY [facility], [facility] Last Admin: 08/03/20 09:26 Dose: 12.5 mg Documented by: Fenofibrate (Fenofibrate 145 Mg Tablet) 145 mg PO DAILY [facility], [facility] Last Admin: 08/03/20 09:26 Dose: 145 mg Documented by: Ferrous Sulfate (Ferrous Sulfate 325 Mg Tablet) 325 mg PO DAILYCM FORMER[facility], [facility]1983 Last Admin: 08/03/20 09:26 Dose: 325 mg Documented by: Gabapentin (Gabapentin 800 Mg Tablet) 800 mg PO TIDCM FOR[facility], [facility] Last Admin: 08/03/20 09:26 Dose: 800 mg Documented by: Guaifenesin (Guaifenesin 10 Ml Udc (200mg/10ml)) 20 ml PO Q4H PRN PRN PRN Reason: COUGH Hydralazine HCl (Hydralazine 20 Mg/Ml Vial) 10 mg IV Q4H PRN PRN PRN Reason: SBP > 160 Losartan Potassium (Losartan Potassium 50 Mg Tablet) 50 mg PO DAILY [facility], [facility] Last Admin: 08/03/20 09:26 Dose: 50 mg Documented by: Magnesium Hydroxide (Magnesium Hydroxide 30 Ml Udc) 30 ml PO DAILY PRN PRN PRN Reason: Constipation Melatonin (Melatonin 3 Mg Tablet) 3 mg PO QHS PRN PRN PRN Reason: INSOMNIA Nitroglycerin (Nitroglycerin (Inpatient Use) 0.4 Mg Tab.Subl) 0.4 mg SL Q5M PRN PRN Reason: CARDIAC/CHEST PAIN Ondansetron HCl (Ondansetron 4 Mg/2 Ml Vial) 4 mg IV Q8H PRN PRN PRN Reason: NAUSEA/VOMITING Pantoprazole Sodium (Pantoprazole Sodium 40 Mg Tablet) 40 mg PO DAILY [facility], [facility] Last Admin: 08/03/20 09:26 Dose: 40 mg Documented by: Pravastatin Sodium (Pravastatin 20 Mg Tablet) 20 mg PO QHS [facility], [facility] Last Admin: 08/03/20 01:30 Dose: 20 mg Documented by: Prochlorperazine Edisylate (Prochlorperazine 10 Mg/2 Ml Vial) 5 mg IV Q4H PRN PRN PRN Reason: Breakthrough Nausea/Vomiting Psyllium Hydrophilic Mucilloid (Psyllium 1 Packet) 1 packet PO DAILY PRN PRN PRN Reason: Constipation Senna/Docusate Sodium (Senna/Docusate Sodium 1 Tablet) 2 tablet PO BID PRN PRN PRN Reason: Constipation Spironolactone (Spironolactone 25 Mg Tablet) 25 mg PO QHS [facility], [facility] Last Admin: 08/03/20 01:30 Dose: 25 mg Documented by: Throat Lozenges (Benzocaine/Menthol 1 Lozenge) 1 lozenge MUCOUS MEM Q2H PRN PRN PRN Reason: SORE THROAT Medical Necessity - Tobacco Use Smoking Status: Former smoker Tobacco Use: Non-smoker Assessment/Plan All Active Problems (Last Reviewed 07/26/20 @ 09:15 by Michelle Garduno) Near syncope (Acute) Hypoxia (Acute) Exertional dyspnea (Acute) Exacerbation of multiple sclerosis (Acute) Delirium (Acute) UTI (urinary tract infection) (Acute) DVT of lower extremity (deep venous thrombosis) (Resolved) 1. Dyspnea on exertion, rule out anginal equivalent-chest x-ray with atelectasis. BNP not significantly elevated. Covid negative. D-dimer within normal limits. Given prior cardiac history, concern for anginal equivalent given symptoms are associated with exertion only. Plan for stress test in a.m. Not noted to be hypoxic. Echocardiogram completed, report pending. 2. CAD with history of CABG-continue aspirin, statin, carvedilol, losartan. 3. Chronic iron deficiency anemia-stable. 4. Hypertension-stable, continue Coreg, losartan, spironolactone. 5. Hyperlipidemia-continue statin, TriCor. 6. 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 7. Multiple sclerosis, associated history of urinary retention with recurrent UTIs-requiring self-catheterization. Following with Dr. Hines. 8. REBECCA-on CPAP. 9. Morbid obesity-diet and lifestyle modifications encouraged. Nutrition consult. 10. History of ovarian mass-status post total hysterectomy and bilateral salpingo-oophorectomy. 11. Underlying dementia, without known behavioral disturbance-Per records. Not on regimen. DVT prophylaxis-Eliquis This patient was seen by MARK Alexandre under the supervision of Dr. Worthy. <Mina Worthy - Last Filed: 08/03/20 14:26> - Physical Exam Vitals/I&O's: Vital Signs Temp Pulse Resp BP Pulse Ox 98.5 F 75 18 116/65 95 08/03/20 09:02 08/03/20 09:02 08/03/20 09:02 08/03/20 09:02 08/03/20 09:02 Oxygen Delivery Method Room Air Weight: 98.1 kg Body Mass Index (BMI) 40.1 Finger Stick Blood Glucose 92 Orthostatic Vital Signs Start: 08/03/20 02:35 Freq: q24h Status: Active Protocol: Activity Type Activity Date Activity User E-Sign Co-Sign Detail Recorded Client Recorded Date Recorded By Document 08/03/20 03:10 RUSS [id number] 08/03/20 03:47 RUSS 08/03/20 03:10 Orthostatic Vitals Standing -Blood Pressure (90/60-120/80) 149/74 H -Extremity Use Right Arm -Pulse Rate (60-100) 79 Sitting -Blood Pressure (90/60-120/80) 150/68 H -Extremity Use Right Arm -Pulse Rate (60-100) 69 Lying -Blood Pressure (90/60-120/80) 139/69 H -Extremity Use Right Arm -Pulse Rate (60-100) 67 Intake and Output for Last 24 Hours 08/01/20 08/02/20 08/03/20 23:59 23:59 23:59 Intake Total 500 / 500 400 / 400 Balance 500 / 500 400 / 400 Microbiology Past 72 Hours 08/03/20 00:55 Mucosa - Nasopharyngeal Respiratory Panel (PCR) - Final 08/02/20 17:50 Urine, Clean Catch Streptococcus pneumoniae Antigen (M - Final 08/02/20 17:50 Urine, Clean Catch Legionella Antigen - Final 08/02/20 21:59 Nasal Secretion SARS-CoV-2 Antigen (Rapid) - Final Laboratory Results 08/02/20 15:47: POC Glucose 92 08/02/20 16:24: WBC 6.2, RBC 4.67, Hgb 12.4, Hct 40.3, MCV 86.3, MCH 26.6 L, MCHC 30.8 L, RDW Std Deviation 45.4 H, RDW Coeff of Rainer 14.4, Plt Count 294, MPV 10.4, Immature Gran % (Auto) 0.200, Neut % (Auto) 48.1, Lymph % (Auto) 39.4, [place] % (Auto) 10.2 H, Eos % (Auto) 1.5, Baso % (Auto) 0.6, Absolute Neuts (auto) 3.0, Absolute Lymphs (auto) 2.44, Nucleated RBC % 0 08/02/20 16:24: Sodium 138, Potassium 4.4, Chloride 112 H, Carbon Dioxide 22.0, Anion Gap 4 L, BUN 15, Creatinine 0.74, Estim Creat Clear Calc 40.81, Est GFR (MDRD) Af Amer 99, Est GFR (MDRD) Non-Af 82, BUN/Creatinine Ratio 20.2 H, Glucose 84, Calcium 10.0, Total Bilirubin 0.30, AST 30, ALT 40, Alkaline Phosphatase 74, Troponin I < 0.015, Total Protein 7.6, Albumin 3.3, Globulin 4.3 H, Albumin/Globulin Ratio 0.8 L 08/02/20 17:50: Urine Color Yellow, Urine Clarity Clear, Urine pH 6.0, Ur Specific [place] 1.015, Urine Protein Negative, Urine Glucose (UA) Normal, Urine Ketones Negative, Urine Occult Blood Negative, Urine Nitrite Negative, Urine Bilirubin Negative, Urine Urobilinogen Normal, Ur Leukocyte Esterase Negative, Urine RBC 0 SEEN, Urine WBC 0 SEEN, Ur Squamous Epith Cells 0 SEEN, Urine Bacteria 0 SEEN, Urine Mucus 0 SEEN 08/02/20 20:47: Troponin I < 0.015 08/02/20 20:47: D-Dimer Quant (PE/DVT) < 0.27 L 08/02/20 20:47: B-Natriuretic Peptide 102.8 H 08/02/20 22:05: COVID-19 (JON) Not Detected 08/03/20 02:45: WBC 7.9, RBC 4.80, Hgb 12.7, Hct 41.3, MCV 86.0, MCH 26.5 L, MCHC 30.8 L, RDW Std Deviation 45.6 H, RDW Coeff of Rainer 14.4, Plt Count 329, MPV 10.4, Immature Gran % (Auto) 0.300, Neut % (Auto) 53.5, Lymph % (Auto) 36.5, [place] % (Auto) 8.5, Eos % (Auto) 0.8, Baso % (Auto) 0.4, Absolute Neuts (auto) 4.2, Absolute Lymphs (auto) 2.88, Nucleated RBC % 0 08/03/20 02:45: Sodium 141, Potassium 3.9, Chloride 109 H, Carbon Dioxide 28.0, Anion Gap 4 L, BUN 14, Creatinine 0.89, Estim Creat Clear Calc 45.85, Est GFR (MDRD) Af Amer 80, Est GFR (MDRD) Non-Af 66, BUN/Creatinine Ratio 15.7, Glucose 112 H, Calcium 10.3 H, Total Bilirubin 0.20, AST 20, ALT 40, Alkaline Phosphatase 76, Total Protein 7.8, Albumin 3.6, Globulin 4.2, Albumin/Globulin Ratio 0.9, Triglycerides 143, Cholesterol 140, LDL Cholesterol 78, VLDL Cholesterol 29, HDL Cholesterol 33 L, TSH 2.36 08/03/20 02:45: Troponin I < 0.015 08/03/20 : Magnesium 2.1 08/03/20 : Procalcitonin 0.05 Current Medications Acetaminophen (Acetaminophen 325 Mg Tablet) 650 mg PO Q6H PRN PRN PRN Reason: Pain Score 1-10/Temp > 100.7 F Al Hydroxide/Mg Hydroxide (Mag Hydrox/Al Hydrox/Simeth 30 Ml Udc) 30 ml PO Q6H PRN PRN PRN Reason: Gastric Burning Albuterol Sulfate (Albuterol 2.5 Mg/3 Ml Vial.Neb.) 2.5 mg INHALATION Q2H PRN PRN PRN Reason: Dyspnea, wheezing Apixaban (Apixaban 5 Mg Tablet) 5 mg PO BID [facility], [facility]1983 Last Admin: 08/03/20 09:26 Dose: 5 mg Documented by: Aspirin (Aspirin 81 Mg Tab.Chew) 81 mg PO DAILY@0800 [facility], [facility]1983 Last Admin: 08/03/20 09:26 Dose: 81 mg Documented by: Baclofen (Baclofen 10 Mg Tablet) 20 mg PO 0600,1400 PRN PRN Reason: SPASMS Baclofen (Baclofen 10 Mg Tablet) 40 mg PO QHS PRN PRN PRN Reason: SPASMS Last Admin: 08/03/20 02:48 Dose: 40 mg Documented by: Carvedilol (Carvedilol 12.5 Mg Tablet) 12.5 mg PO BID [facility], [facility]1983 Last Admin: 08/03/20 09:26 Dose: 12.5 mg Documented by: Fenofibrate (Fenofibrate 145 Mg Tablet) 145 mg PO DAILY [facility], [facility] Last Admin: 08/03/20 09:26 Dose: 145 mg Documented by: Ferrous Sulfate (Ferrous Sulfate 325 Mg Tablet) 325 mg PO DAILYCM [facility], [facility]–1983 Last Admin: 08/03/20 09:26 Dose: 325 mg Documented by: Gabapentin (Gabapentin 800 Mg Tablet) 800 mg PO TIDCM [facility], [facility]1983 Last Admin: 08/03/20 12:18 Dose: 800 mg Documented by: Guaifenesin (Guaifenesin 10 Ml Udc (200mg/10ml)) 20 ml PO Q4H PRN PRN PRN Reason: COUGH Hydralazine HCl (Hydralazine 20 Mg/Ml Vial) 10 mg IV Q4H PRN PRN PRN Reason: SBP > 160 Losartan Potassium (Losartan Potassium 50 Mg Tablet) 50 mg PO DAILY [facility] Last Admin: 08/03/20 09:26 Dose: 50 mg Documented by: Magnesium Hydroxide (Magnesium Hydroxide 30 Ml Udc) 30 ml PO DAILY PRN PRN PRN Reason: Constipation Melatonin (Melatonin 3 Mg Tablet) 3 mg PO QHS PRN PRN PRN Reason: INSOMNIA Nitroglycerin (Nitroglycerin (Inpatient Use) 0.4 Mg Tab.Subl) 0.4 mg SL Q5M PRN PRN Reason: CARDIAC/CHEST PAIN Ondansetron HCl (Ondansetron 4 Mg/2 Ml Vial) 4 mg IV Q8H PRN PRN PRN Reason: NAUSEA/VOMITING Pantoprazole Sodium (Pantoprazole Sodium 40 Mg Tablet) 40 mg PO DAILY [facility], [facility] Last Admin: 08/03/20 09:26 Dose: 40 mg Documented by: Pravastatin Sodium (Pravastatin 20 Mg Tablet) 20 mg PO QHS [facility], [facility] Last Admin: 08/03/20 01:30 Dose: 20 mg Documented by: Prochlorperazine Edisylate (Prochlorperazine 10 Mg/2 Ml Vial) 5 mg IV Q4H PRN PRN PRN Reason: Breakthrough Nausea/Vomiting Psyllium Hydrophilic Mucilloid (Psyllium 1 Packet) 1 packet PO DAILY PRN PRN PRN Reason: Constipation Senna/Docusate Sodium (Senna/Docusate Sodium 1 Tablet) 2 tablet PO BID PRN PRN PRN Reason: Constipation Spironolactone (Spironolactone 25 Mg Tablet) 25 mg PO QHS [facility] Last Admin: 08/03/20 01:30 Dose: 25 mg Documented by: Throat Lozenges (Benzocaine/Menthol 1 Lozenge) 1 lozenge MUCOUS MEM Q2H PRN PRN PRN Reason: SORE THROAT Assessment/Plan This patient was seen in conjunction with MARK Alexandre . I have independently interviewed and examined the patient and reviewed pertinent historical, laboratory, and other data. Please refer to MARK Alexandre note for details of this patient's presentation, findings, and recommendations. I have reviewed MARK Alexandre note and concur with documented findings. In brief, is a 69-year-old lady transferred from [facility] to ER with diaphoresis and presyncope. Admitted to monitored bed for subsequent management Physical Examination: GENERAL: cooperative HEENT: Atraumatic; EYES; Anicteric, Normal Conjunctiva NECK; supple, normal thyroid, RESPIRATORY: Diminished to auscultation CARDIOVASCULAR: Regular S1 S2, GI: soft, normoactive bowel sounds, : No Renal angle tenderness; EXTREMITIES: No edema, no clubbing, MUSCULOSKELETAL: no muscle waisting NEURO: Awake; no lateralizing signs. SKIN: No Rash PSYCH; Flat affect Assessment: 1. Presyncope 2. Exertional dyspnea 3. Coronary artery disease status post CABG 4. Essential hypertension 5. Dyslipidemia 6. Obstructive sleep apnea 7. Morbid obesity with BMI of 39.6 8. Anemia of chronic disorder 9. Multiple sclerosis 10. History of recurrent UTIs as a result of self-catheterization 11. History of ovarian mass status post FAISAL and BSO 12. Mild cognitive impairment Recommendations: 1. I have discussed the results of my overview and impressions with the patient 2. Options for management were reviewed Inpatient E&M: [id number] Subs Hosp L3
[2020-08-03] MEDS: Baclofen 10 MG Tablet 20 MG PO (21:55)
[2020-08-04] VITALS (7 sets, daily range): BP systolic 120–146; BP diastolic 49–74; PULSE 62–99; RESP 17–18; TEMP 36.6–36.7; O2SAT 95–97
[2020-08-04] MEDS: Losartan Potassium 50 MG Tablet PO (05:58)
[2020-08-04] MEDS: Baclofen 10 MG Tablet 20 MG PO ×2 (05:58→13:20)
[2020-08-04] MEDS: Aspirin 81 MG TAB.CHEW PO (07:33)
[2020-08-04] MEDS: Ferrous Sulfate 325 MG Tablet PO (10:02)
[2020-08-04] MEDS: Fenofibrate 145 MG Tablet PO (10:02)
[2020-08-04] MEDS: Carvedilol 12.5 MG Tablet PO (10:02)
[2020-08-04] MEDS: Gabapentin 800 MG Tablet PO ×2 (10:03→13:20)
[2020-08-04] MEDS: Pantoprazole Sodium 40 MG Tablet PO (10:03)
--- NOTE | 2020-08-04 12:37 | DCINST_ITS ---
- Discharge Diagnoses Current Active Problems: Current Active and Chronic Problems (Last Reviewed 07/26/20 @ 09:15 by Michelle Garduno) Near syncope (Acute) Hypoxia (Acute) Exertional dyspnea (Acute) Urinary retention (Chronic) Neurogenic bladder (Chronic) Multiple sclerosis (Chronic) Morbid obesity (Chronic) HTN (hypertension) (Chronic) CAD (coronary artery disease) (Chronic) S/P CABG x 2 (Chronic) GERD (gastroesophageal reflux disease) (Chronic) HLD (hyperlipidemia) (Chronic) REBECCA (obstructive sleep apnea) (Chronic) Compliant with CPAP Pacemaker (Chronic) IBS (irritable bowel syndrome) (Chronic) Allergies/Adverse Reactions: Allergies glatiramer (copolymer 1) [From [employer]] Allergy (Verified 08/03/20 01:15) Itching itching and redness surrounding injection site Medications to take at Discharge Apixaban [Eliquis] 5 mg PO BID 07/20/18 Aspirin [Aspirin, Baby] 81 mg PO DAILY@0800 07/20/18 Carvedilol [Coreg] 12.5 mg PO BID 07/20/18 Fenofibrate [Tricor] 145 mg PO DAILY 07/20/18 Ferrous Sulfate 65 mg PO DAILY 07/20/18 Losartan Potassium [Cozaar] 50 mg PO DAILY 07/20/18 Magnesium Oxide [Mag-Ox 400] 400 mg PO BID 07/20/18 Multivitamin [Multivitamins] 1 each PO DAILY 07/20/18 Pravastatin Sodium 20 mg PO QHS 07/20/18 ascorbic acid (vitamin C) 1,000 mg tablet 1 gm PO DAILY tablet 07/25/20 cholecalciferol (vitamin D3) 125 mcg (5,000 unit) capsule 1,000 units PO DAILY 07/25/20 cranberry extract 500 mg capsule 500 mg PO DAILY cap 07/25/20 esomeprazole magnesium 40 mg capsule,delayed release 40 mg PO DAILY 07/25/20 baclofen 20 mg tablet See Rx Instructions .ROUTE .COMPLEX #360 tablet 07/26/20 Gabapentin 800 mg PO TID 08/02/20 Dimethyl Fumarate 240 mg PO BID 08/03/20 Furosemide [Lasix] 40 mg PO DAILY #30 tab 08/04/20 The following prescriptions were given: Furosemide [Lasix] 40 mg PO DAILY #30 tab Transmission Status: Pending to [facility]/pharmacy #[id number] Primary Care Physician: Jamie Cruz MD [Primary Care Provider] - Please follow up with your Primary Care Physician in: 1 Week Test Results: Test results from this visit will be discussed in further detail at your follow- up appointment, if applicable. Please Follow Up With: Gonzalez Fernandez DO When: As scheduled 08/20/20 Please Follow Up With: García Clemente MD When: Call for follow up, re-order Head CTA with contrast Proposed Discharge Date: 08/04/20
--- NOTE | 2020-08-04 12:38 | DS.PCM_ITS ---
<Nevaeh Hughes BUZZSAW OPERATOR - Last Filed: 08/04/20 13:59> Discharge Date and Diagnosis - Problem List Patient Problems: Active and Suspected Problems (Last Reviewed 07/26/20 @ 09:15 by Michelle Garduno) Near syncope (Acute) Hypoxia (Acute) Exertional dyspnea (Acute) Date of Admission: 08/02/20 Date of Discharge: 08/04/20 - Primary Discharge Diagnosis Acute Problems: Active Problems (Last Reviewed 07/26/20 @ 09:15 by Michelle Garduno) 1. Dyspnea on exertion, ACS ruled out 2. CAD with history of CABG 3. Chronic iron deficiency anemia 4. Hypertension 5. Hyperlipidemia 6. History of DVT/PE 7. Multiple sclerosis, associated history of urinary retention with recurrent UTIs 8. REBECCA 9. Morbid obesity 10. History of ovarian mass 11. Underlying dementia, without known behavioral disturbance - Secondary Discharge Diagnosis Chronic Problems: Chronic Problems (Last Reviewed 07/26/20 @ 09:15 by Michelle Garduno) Urinary retention (Chronic) Neurogenic bladder (Chronic) Multiple sclerosis (Chronic) Morbid obesity (Chronic) HTN (hypertension) (Chronic) CAD (coronary artery disease) (Chronic) S/P CABG x 2 (Chronic) GERD (gastroesophageal reflux disease) (Chronic) HLD (hyperlipidemia) (Chronic) REBECCA (obstructive sleep apnea) (Chronic) Compliant with CPAP Pacemaker (Chronic) Urine retention (Chronic) off an on...has self cath'd in the past Chronic anticoagulation (Chronic) Eliquis IBS (irritable bowel syndrome) (Chronic) Hospital Course and Treatment Imaging Results: Diagnostic Data Chest X-Ray 08/02/20 16:40 IMPRESSION: Mild lower lung edema or atelectasis. Electronically Signed: Rachid Norwood MD at 16:55 EDT , Service support , Echocardiogram 08/03/20 00:49 Interpretation Summary The estimated ejection fraction is 55 %. No evidence for diastolic dysfunction. The study was technically difficult. Contrast injection was performed. Ordering Physician: Vonda Galan Referring Physician: Jamie Cruz Performed By: Michelle Butler, RDHERNANDO, RVT Operations: None Procedures: 2-D Echocardiogram, Stress test Summary of Care Provided: The patient is a 69 year old F admitted 08/02/20 due to exertional dyspnea, hypoxia. 1. Dyspnea on exertion, ACS ruled out-chest x-ray with atelectasis. BNP very minimally elevated. Covid negative. D-dimer within normal limits. Echocardiogram demonstrated an EF of 55%. Stress test showed no evidence of ischemia. Suspect component of heart failure with preserved ejection fraction as patient's symptoms improved with IV Lasix x2. Home spironolactone discontinued, initiated on Lasix 40 mg daily. Will need repeat BMP in 1 to 2 weeks by PCP. Patient has follow-up with pulmonary medicine, Dr. Fernandez 08/20/2020 for CPAP and may consider further pulmonary evaluation of dyspnea. 2. CAD with history of CABG-continue aspirin, statin, carvedilol, losartan. 3. Chronic iron deficiency anemia-stable. 4. Hypertension-stable, continue Coreg, losartan. 5. Hyperlipidemia-continue statin, TriCor. 6. 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 7. Multiple sclerosis, associated history of urinary retention with recurrent UTIs-requiring self-catheterization. Following with Dr. Hines. 8. REBECCA-on CPAP. 9. Morbid obesity-diet and lifestyle modifications encouraged. 10. History of ovarian mass-status post total hysterectomy and bilateral salpingo-oophorectomy. 11. Underlying dementia, without known behavioral disturbance-per family, worsening forgetfulness. Following with neurology. General: Alert, Oriented x3, Cooperative HEENT: Atraumatic, PERRLA, EOMI, Normocephalic Neck: Supple, No JVD, Negative Carotid Bruits Lungs: Clear to auscultation, Diminished Cardiovascular: Regular rate, No murmurs Abdomen: Bowel Sounds Present, Soft, Non Tender, Non-Distended, Obese Extremities: No clubbing, No cyanosis, No edema, Capillary Refill Less than 3 Seconds Skin: No rashes, No breakdown Musculoskeletal: No Tenderness to Palpation of Joints or Extremities Neurological: Cranial nerves II-XII grossly intact, Neuro grossly intact Psych/Mental Status: Normal Affect, Appropriate Patient seen and examined prior to discharge. Physical assessment as noted above. Patient is stable for discharge with follow up recommendations as noted above. This patient was seen by MARK Alexandre under the supervision of Dr. Worthy. Patient Problems: Active and Suspected Problems (Last Reviewed 07/26/20 @ 09:15 by Michelle Garduno) Near syncope (Acute) Hypoxia (Acute) Exertional dyspnea (Acute) - Physical Exam Vitals/I&O's: Vital Signs Temp Pulse Resp BP Pulse Ox 98.0 F 72 18 142/70 H 96 08/04/20 11:41 08/04/20 11:41 08/04/20 11:41 08/04/20 11:41 08/04/20 11:41 Oxygen Delivery Method Room Air Weight: 219 lb 5.759 oz Body Mass Index (BMI) 40.1 Finger Stick Blood Glucose 92 Orthostatic Vital Signs Start: 08/03/20 02:35 Freq: q24h Status: Active Protocol: Activity Type Activity Date Activity User E-Sign Co-Sign Detail Recorded Client Recorded Date Recorded By Document 08/04/20 07:28 [place] [id number] 08/04/20 07:33 [place] 08/04/20 07:28 Orthostatic Vitals Standing -Blood Pressure (90/60-120/80) 141/73 H -Extremity Use Right Arm -Pulse Rate (60-100) 99 Sitting -Blood Pressure (90/60-120/80) 138/74 H -Extremity Use Right Arm -Pulse Rate (60-100) 66 Lying -Blood Pressure (90/60-120/80) 146/59 H -Extremity Use Right Arm -Pulse Rate (60-100) 75 Intake and Output for Last 24 Hours 08/02/20 08/03/20 08/04/20 23:59 23:59 23:59 Intake Total 500 / 500 900 / 1150 950 / 950 Balance 500 / 500 900 / 1150 950 / 950 Microbiology Past 72 Hours 08/03/20 00:55 Mucosa - Nasopharyngeal Respiratory Panel (PCR) - Final 08/02/20 17:50 Urine, Clean Catch Streptococcus pneumoniae Antigen (M - Final 08/02/20 17:50 Urine, Clean Catch Legionella Antigen - Final 08/02/20 21:59 Nasal Secretion SARS-CoV-2 Antigen (Rapid) - Final Current Medications Acetaminophen (Acetaminophen 325 Mg Tablet) 650 mg PO Q6H PRN PRN PRN Reason: Pain Score 1-10/Temp > 100.7 F Al Hydroxide/Mg Hydroxide (Mag Hydrox/Al Hydrox/Simeth 30 Ml Udc) 30 ml PO Q6H PRN PRN PRN Reason: Gastric Burning Albuterol Sulfate (Albuterol 2.5 Mg/3 Ml Vial.Neb.) 2.5 mg INHALATION Q2H PRN PRN PRN Reason: Dyspnea, wheezing Apixaban (Apixaban 5 Mg Tablet) 5 mg PO BID [facility] Last Admin: 08/03/20 21:53 Dose: 5 mg Documented by: Aspirin (Aspirin 81 Mg Tab.Chew) 81 mg PO DAILY@0800 [facility] Last Admin: 08/04/20 07:33 Dose: 81 mg Documented by: Baclofen (Baclofen 10 Mg Tablet) 20 mg PO 0600,1400 [facility] Last Admin: 08/04/20 05:58 Dose: 20 mg Documented by: Baclofen (Baclofen 10 Mg Tablet) 40 mg PO QHS [facility] Last Admin: 08/04/20 01:06 Dose: Not Given Documented by: Carvedilol (Carvedilol 12.5 Mg Tablet) 12.5 mg PO BID [facility] Last Admin: 08/04/20 10:02 Dose: 12.5 mg Documented by: Fenofibrate (Fenofibrate 145 Mg Tablet) 145 mg PO DAILY [facility] Last Admin: 08/04/20 10:02 Dose: 145 mg Documented by: Ferrous Sulfate (Ferrous Sulfate 325 Mg Tablet) 325 mg PO DAILYCM [facility] Last Admin: 08/04/20 10:02 Dose: 325 mg Documented by: Furosemide (Furosemide 40 Mg/4 Ml Vial) 40 mg IV X1 ONE Stop: 08/04/20 12:46 Gabapentin (Gabapentin 800 Mg Tablet) 800 mg PO TIDCM [facility] Last Admin: 08/04/20 10:03 Dose: 800 mg Documented by: Guaifenesin (Guaifenesin 10 Ml Udc (200mg/10ml)) 20 ml PO Q4H PRN PRN PRN Reason: COUGH Hydralazine HCl (Hydralazine 20 Mg/Ml Vial) 10 mg IV Q4H PRN PRN PRN Reason: SBP > 160 Losartan Potassium (Losartan Potassium 50 Mg Tablet) 50 mg PO DAILY [facility] Last Admin: 08/04/20 05:58 Dose: 50 mg Documented by: Magnesium Hydroxide (Magnesium Hydroxide 30 Ml Udc) 30 ml PO DAILY PRN PRN PRN Reason: Constipation Melatonin (Melatonin 3 Mg Tablet) 3 mg PO QHS PRN PRN PRN Reason: INSOMNIA Nitroglycerin (Nitroglycerin (Inpatient Use) 0.4 Mg Tab.Subl) 0.4 mg SL Q5M PRN PRN Reason: CARDIAC/CHEST PAIN Ondansetron HCl (Ondansetron 4 Mg/2 Ml Vial) 4 mg IV Q8H PRN PRN PRN Reason: NAUSEA/VOMITING Pantoprazole Sodium (Pantoprazole Sodium 40 Mg Tablet) 40 mg PO DAILY [facility] Last Admin: 08/04/20 10:03 Dose: 40 mg Documented by: Pravastatin Sodium (Pravastatin 20 Mg Tablet) 20 mg PO QHS [facility] Last Admin: 08/03/20 21:53 Dose: 20 mg Documented by: Prochlorperazine Edisylate (Prochlorperazine 10 Mg/2 Ml Vial) 5 mg IV Q4H PRN PRN PRN Reason: Breakthrough Nausea/Vomiting Psyllium Hydrophilic Mucilloid (Psyllium 1 Packet) 1 packet PO DAILY PRN PRN PRN Reason: Constipation Senna/Docusate Sodium (Senna/Docusate Sodium 1 Tablet) 2 tablet PO BID PRN PRN PRN Reason: Constipation Spironolactone (Spironolactone 25 Mg Tablet) 25 mg PO QHS [facility] Last Admin: 08/03/20 21:53 Dose: 25 mg Documented by: Throat Lozenges (Benzocaine/Menthol 1 Lozenge) 1 lozenge MUCOUS MEM Q2H PRN PRN PRN Reason: SORE THROAT Discharge Diet: Low fat/ Low Cholesterol Home Medications: Medications to take at Discharge Apixaban [Eliquis] 5 mg PO BID 07/20/18 Aspirin [Aspirin, Baby] 81 mg PO DAILY@0800 07/20/18 Carvedilol [Coreg] 12.5 mg PO BID 07/20/18 Fenofibrate [Tricor] 145 mg PO DAILY 07/20/18 Ferrous Sulfate 65 mg PO DAILY 07/20/18 Losartan Potassium [Cozaar] 50 mg PO DAILY 07/20/18 Magnesium Oxide [Mag-Ox 400] 400 mg PO BID 07/20/18 Multivitamin [Multivitamins] 1 each PO DAILY 07/20/18 Pravastatin Sodium 20 mg PO QHS 07/20/18 ascorbic acid (vitamin C) 1,000 mg tablet 1 gm PO DAILY tablet 07/25/20 cholecalciferol (vitamin D3) 125 mcg (5,000 unit) capsule 1,000 units PO DAILY 07/25/20 cranberry extract 500 mg capsule 500 mg PO DAILY cap 07/25/20 esomeprazole magnesium 40 mg capsule,delayed release 40 mg PO DAILY 07/25/20 baclofen 20 mg tablet See Rx Instructions .ROUTE .COMPLEX #360 tablet 07/26/20 Gabapentin 800 mg PO TID 08/02/20 Dimethyl Fumarate 240 mg PO BID 08/03/20 Furosemide [Lasix] 40 mg PO DAILY #30 tab 08/04/20 Following Prescriptions Were Given to Patient: Furosemide [Lasix] 40 mg PO DAILY #30 tab Transmission Status: Received by [id number] Primary Care Physician: Jamie Cruz MD [Primary Care Provider] - Please follow up with your Primary Care Physician in: 1 Week Please Follow Up With: Gonzalez Fernandez DO When: As scheduled 08/20/20 Please Follow Up With: García Clemente MD When: Call for follow up, re-order Head CTA with contrast Disposition: Home Minutes spent on discharge:: 35 Patient Condition:: Stable Medical Necessity - Tobacco Use Smoking Status: Former smoker Tobacco Use: Non-smoker Meaningful Use Info Meaningful Use Diagnoses (Choose all that apply): None applicable <Mina Worthy - Last Filed: 08/05/20 07:18> Discharge Date and Diagnosis - Primary Discharge Diagnosis Acute Problems: Active Problems (Last Reviewed 07/26/20 @ 09:15 by Michelle Garduno) Near syncope (Acute) Hypoxia (Acute) Exertional dyspnea (Acute) - Secondary Discharge Diagnosis Chronic Problems: Chronic Problems (Last Reviewed 07/26/20 @ 09:15 by Michelle Garduno) Urinary retention (Chronic) Neurogenic bladder (Chronic) Multiple sclerosis (Chronic) Morbid obesity (Chronic) HTN (hypertension) (Chronic) CAD (coronary artery disease) (Chronic) S/P CABG x 2 (Chronic) GERD (gastroesophageal reflux disease) (Chronic) HLD (hyperlipidemia) (Chronic) REBECCA (obstructive sleep apnea) (Chronic) Compliant with CPAP Pacemaker (Chronic) Urine retention (Chronic) off an on...has self cath'd in the past Chronic anticoagulation (Chronic) Eliquis IBS (irritable bowel syndrome) (Chronic) Hospital Course and Treatment Summary of Care Provided: This patient was seen in conjunction with MARK Alexandre . I have independently interviewed and examined the patient and reviewed pertinent historical, laboratory, and other data. Please refer to MARK Alexandre note for details of this patient's presentation, findings, and recommendations. I have reviewed MARK Alexandre note and concur with documented findings. In brief, is a 69-year-old lady transferred from CAT scan to ER with diaphoresis and presyncope. Admitted to monitored bed for subsequent management Assessment: 1. Presyncope 2. Exertional dyspnea 3. Coronary artery disease status post CABG 4. Essential hypertension 5. Dyslipidemia 6. Obstructive sleep apnea 7. Morbid obesity with BMI of 39.6 8. Anemia of chronic disorder 9. Multiple sclerosis 10. History of recurrent UTIs as a result of self-catheterization 11. History of ovarian mass status post FAISAL and BSO 12. Mild cognitive impairment Hospital course: As documented above - Physical Exam Vitals/I&O's: Vital Signs Temp Pulse Resp BP Pulse Ox 98.0 F 72 18 142/70 H 96 08/04/20 11:41 08/04/20 11:41 08/04/20 11:41 08/04/20 11:41 08/04/20 11:41 Oxygen Delivery Method Room Air Weight: 99.5 kg Body Mass Index (BMI) 40.1 Finger Stick Blood Glucose 92 Intake and Output for Last 24 Hours 08/03/20 08/04/20 08/05/20 23:59 23:59 23:59 Intake Total 900 / 1150 950 / 950 Balance 900 / 1150 950 / 950 Microbiology Past 72 Hours 08/03/20 00:55 Mucosa - Nasopharyngeal Respiratory Panel (PCR) - Final 08/02/20 17:50 Urine, Clean Catch Streptococcus pneumoniae Antigen (M - Final 08/02/20 17:50 Urine, Clean Catch Legionella Antigen - Final 08/02/20 21:59 Nasal Secretion SARS-CoV-2 Antigen (Rapid) - Final Inpatient E&M: [id number] Disch Hosp
--- NOTE | 2020-08-04 13:09 | STRESSREP ---
Stress Test Report Date: 08/04/2020 Procedure: Pharmacologic stress nuclear imaging study Indications: Syncope Consent: Per the patient Procedure: The patient underwent pharmacologic (Regadenoson) evaluation with a peak heart rate of 98 beats per minute (65%predicted maximal heart rate) and a peak blood pressure of 138/68 mmHg. The baseline ECG demonstrated ventricular paced rhythm. EKG during lexiscan infusion revealed no significant ischemic changes. EKG post infusion revealed no significant ischemic changes [There were no cardiac dysrhythmias pretest, during pharmacologic infusion, or recovery]. [There was no complaint of chest discomfort during pharmacologic infusion or recovery]. The examination was discontinued secondary to completion of protocol. Impression: 1. Lexiscan stress test test is negative for Lexiscan infusion induced EKG changes of ischemia. 2. Lexiscan stress test test is negative for Lexiscan infusion induced chest pain. 3. Results of the nuclear portion of the test is as below Myocardial perfusion imaging study: Technique: The patient was injected with 14.1 millicuries of technetium 99m Cardiolite and subsequently rest SPECT Cardiolite nuclear imaging was obtained in the horizontal long, vertical long, and short axis views. The patient underwent pharmacologic [Regadenoson 0.4mg] evaluation. Please see above for details. The patient was injected with 43 millicuries of technetium 99m Cardiolite and subsequently stress SPECT Cardiolite nuclear imaging was obtained in the horizontal long, vertical long, and short axis views. A gated Cardiolite study at peak stress was obtained. Interpretation: Rest and stress SPECT Cardiolite nuclear imaging status post realignment, normalization, and attenuation correction demonstrate mild decrease in the radioisotope uptake in the apex on both the rest and stress images suggestive of apical thinning, normal variant. There is no evidence of significant ischemia or infarction. Gated images reveal no significant regional wall motion abnormalities. The reported LVEF is 67%. Impression: 1. There is no evidence of significant ischemia or infarction. 2. Estimated ejection fraction is 67%. This note was generated with [employer] software. It may contain incorrect words, spelling, and punctuation that were not noted in checking the note before signing.
[2020-08-04] MEDS: APIXABAN 5 MG TABLET PO (13:20)
[2020-08-04] MEDS: Furosemide 40 MG/4 ML Vial IV (13:24)
--- NOTE | 2020-08-07 14:56 | CASEMGMT ---
RN CM Discharge F/U Phone Call LACE: 10 Strata: 3 Discharge date: 08/04/20 Call date: 08/07/20 Call time: [phone] Attempted to reach pt without success, message left for pt to call this RN CM back if/when able. [place] RN CM Admission dx: CHF exac, pna, hypoxia
== END 2020-08-04 14:54 | disposition home or self-care (01) | DRG 292 ==
LOC: ED 16:22 → PCU 22:49
PROVIDERS: Admitting Provider Family Medicine; Emergency Provider Emergency Medicine; PCP Family Medicine; Visit Provider Internal Medicine
DX: I11.0 Hypertensive heart disease with heart failure (principal); J98.11 Atelectasis; Z68.41 Body mass index [BMI] 40.0-44.9, adult; I50.33 Acute on chronic diastolic (congestive) heart failure; R06.09 Other forms of dyspnea; I25.10 Atherosclerotic heart disease of native coronary artery without angina pectoris; D50.9 Iron deficiency anemia, unspecified; D63.8 Anemia in other chronic diseases classified elsewhere; E78.5 Hyperlipidemia, unspecified; G35 Multiple sclerosis; G47.33 Obstructive sleep apnea (adult) (pediatric); E66.01 Morbid (severe) obesity due to excess calories; R09.02 Hypoxemia; N31.9 Neuromuscular dysfunction of bladder, unspecified; K21.9 Gastro-esophageal reflux disease without esophagitis; K58.9 Irritable bowel syndrome, unspecified; F03.90 Unspecified dementia, unspecified severity, without behavioral disturbance, psychotic disturbance, mood disturbance, and anxiety; R55 Syncope and collapse; R33.9 Retention of urine, unspecified; Z95.0 Presence of cardiac pacemaker; Z95.1 Presence of aortocoronary bypass graft; Z90.710 Acquired absence of both cervix and uterus; Z90.722 Acquired absence of ovaries, bilateral; Z79.82 Long term (current) use of aspirin; Z79.01 Long term (current) use of anticoagulants; Z79.899 Other long term (current) drug therapy; Z87.891 Personal history of nicotine dependence; Z87.440 Personal history of urinary (tract) infections; Z86.711 Personal history of pulmonary embolism; Z86.718 Personal history of other venous thrombosis and embolism
CPT/HCPCS: 36415; 70450; 71045; 78452; 80053; 80061; 81001; 82607; 82652; 82746; 82962; 83735; 83880; 84145; 84443; 84484; 85025; 85379; 87426; 87449; 87633; 87635; 93005; 93017; 93306; 94660; 99251; 99285; A9500; J7040; P9612; Q9957; A4216; C8929; G0463; J1940; J2405; J2785; U0002

== ENCOUNTER → 2020-09-13 08:01 | Outpatient (CLI) | payer MEDICARE, SELFPAY ==
[2020-09-12 07:54] VITALS: BMI 37.5
--- NOTE | 2020-09-13 13:42 | PFT_ITS ---
INTRODUCTION: The patient is a 69-year-old female that presents for pulmonary function studies secondary to a diagnosis of dyspnea. Respiratory therapy reported that the patient was unable to exhale completely during postbronchodilator spirometry. The patient was unable to perform the maneuvers for DLCO. INTERPRETATION: Forced expiration spirometry demonstrates no evidence of a large airways obstructive ventilatory defect. There was no significant response to aerosolized bronchodilators. Spirograms are of suboptimal quality and terminate prior to 6 seconds, likely underestimating FVC. Body plethysmography was performed and reveals lung volumes to be within normal limits. Diffusing capacity was unable to be obtained due to patient inability to perform maneuvers . IMPRESSION: Normal spirometry and lung volumes.
== END ==
PROVIDERS: PCP Family Medicine; Referring Provider Nurse Practitioner Acute Care; Visit Provider Nurse Practitioner Acute Care
DX: R06.00 Dyspnea, unspecified (principal)
CPT/HCPCS: 94060; 94726

== ENCOUNTER → 2020-09-20 08:06 | Outpatient (CLI) | payer MEDICARE, SELFPAY ==
[2020-09-12 07:54] VITALS: BMI 37.5
[2020-09-13 14:50] VITALS: BMI 37.5
[2020-09-20 08:15] VITALS: PULSE 79; PULSE 82; PULSE 90; PULSE 92; PULSE 94; PULSE 96; O2SAT 94; O2SAT 96; O2SAT 97; O2SAT 98
--- NOTE | 2020-09-20 08:36 | CPS ---
Pt attempted walk to best of her ability. Pt needed multiple rests for extended periods of time. Pt stated the rest periods were for increased work of breathing and also unstability.
--- NOTE | 2020-09-20 10:00 | PCM.PSN.6M ---
PSN 6 Minute Walk Test 6 Minute Walk Test 6 Minute Walk Test: 6 Minute Walk Test PSN:6-Minute Walk Test Start: 09/20/20 08:32 Freq: Status: Active Protocol: [id number] Document 09/20/20 08:15 [facility] (Rec: 09/20/20 08:41 [facility] [id number]) 6 Minute Walk Test Date Performed 09/20/20 Time Performed 08:15 Height 5 ft 2 in Weight: 205 kg Weight in Pounds 451.[address]: Debbie Assistive device used: Walker Pre-test Oxygen Delivery Method Room Air Pulse Ox (%) 96 Pulse Rate (60-100 beats/min) 79 Dyspnea Grayson Scale (0-10) 0 Exertion Grayson Scale (6-20) 6 Number of Rests Taken 1 Reported Symptoms Increased Work of Breathing 1st minute Oxygen Delivery Method Room Air Pulse Ox (%) 97 Pulse Rate (60-100 beats/min) 96 Dyspnea Grayson Scale (0-10) 3 Number of Rests Taken 1 Reported Symptoms Increased Work of Breathing 2nd minute Oxygen Delivery Method Room Air Pulse Ox (%) 98 Pulse Rate (60-100 beats/min) 94 Dyspnea Grayson Scale (0-10) 3 Number of Rests Taken 1 Reported Symptoms Increased Work of Breathing 3rd minute Oxygen Delivery Method Room Air Pulse Ox (%) 98 Pulse Rate (60-100 beats/min) 92 Dyspnea Grayson Scale (0-10) 3 Number of Rests Taken 1 Reported Symptoms Increased Work of Breathing 4th minute Oxygen Delivery Method Room Air Pulse Ox (%) 96 Pulse Rate (60-100 beats/min) 90 Dyspnea Grayson Scale (0-10) 3 Number of Rests Taken 1 Reported Symptoms Increased Work of Breathing 5th minute Oxygen Delivery Method Room Air Pulse Ox (%) 94 Pulse Rate (60-100 beats/min) 90 Dyspnea Grayson Scale (0-10) 3 Number of Rests Taken 1 Reported Symptoms Increased Work of Breathing 6th minute Oxygen Delivery Method Room Air Pulse Ox (%) 94 Pulse Rate (60-100 beats/min) 82 Dyspnea Grayson Scale (0-10) 3 Reported Symptoms Increased Work of Breathing Post-test Oxygen Delivery Method Room Air Pulse Ox (%) 94 Pulse Rate (60-100 beats/min) 82 Full Laps Walked 1 Partial Lap, Number of Tiles Walked 41 Total Distance Walked (ft) 100 09/20/20 08:36 Cardiopulmonary Services by Elizabeth Bateman Pt attempted walk to best of her ability. Pt needed multiple rests for extended periods of time. Pt stated the rest periods were for increased work of breathing and also unstability. Initialized on 09/20/20 08:36 - END OF NOTE Interpretation Interpretation: The patient was able to ambulate only 100 feet over the course of 6 minutes on room air with the assistance of a walker and 6 breaks. The patient did not experience significant desaturation or tachycardia during testing. These findings are consistent with a musculoskeletal limitation exercise tolerance. Recommendations Recommendations: No supplemental oxygen is indicated at this time. However, patient may need to be reevaluated if musculoskeletal status improves.
== END ==
PROVIDERS: PCP Family Medicine; Referring Provider Nurse Practitioner Acute Care; Visit Provider Nurse Practitioner Acute Care
DX: R06.00 Dyspnea, unspecified (principal)
CPT/HCPCS: 94618

== ENCOUNTER → 2020-10-03 20:01 | Outpatient (CLI) | payer MEDICARE, SELFPAY ==
[2020-09-12 07:54] VITALS: BMI 37.5
[2020-09-13 14:50] VITALS: BMI 37.5
== END ==
PROVIDERS: PCP Family Medicine; Referring Provider Nurse Practitioner Acute Care; Visit Provider Nurse Practitioner Acute Care
DX: G47.33 Obstructive sleep apnea (adult) (pediatric) (principal)
CPT/HCPCS: 95811

== ENCOUNTER → 2020-11-06 13:00 | Outpatient (CLI) | payer MEDICARE, SELFPAY ==
[2020-10-23 09:54] VITALS: BMI 37.5
== END ==
PROVIDERS: PCP Family Medicine; Referring Provider Internal Medicine Critical Care Medicine; Visit Provider Internal Medicine Critical Care Medicine
DX: G47.33 Obstructive sleep apnea (adult) (pediatric) (principal)
CPT/HCPCS: 98960; G0463

== ENCOUNTER → 2020-12-19 14:13 | Outpatient (CLI) | payer MEDICARE, SELFPAY ==
[2020-12-19 14:26] VITALS: BP 117/59; PULSE 65; RESP 18; TEMP 36.6; O2SAT 94; BMI 41.1
[2020-12-19] MEDS: 0.9% NaCl IVPB Med Flush (250 mL) 15 ML IV (14:45)
[2020-12-19] MEDS: 0.9% NaCl Peripheral Flush Adult/Peds IV ×2 (14:46→16:34)
[2020-12-19 16:34] VITALS: BP 131/64; PULSE 61; RESP 18; O2SAT 92
== END ==
PROVIDERS: PCP Family Medicine; Referring Provider Psychiatry & Neurology Neurology; Visit Provider Psychiatry & Neurology Neurology
DX: G35 Multiple sclerosis (principal)
CPT/HCPCS: 96365; J7050; A4216; J2930

== ENCOUNTER → 2020-12-20 14:19 | Outpatient (CLI) | payer MEDICARE, SELFPAY ==
[2020-12-20 14:26] VITALS: BP 126/64; PULSE 73; RESP 16; TEMP 36.1; O2SAT 96
[2020-12-20] MEDS: 0.9% NaCl Peripheral Flush Adult/Peds IV (14:54)
[2020-12-20] MEDS: 0.9% NaCl IVPB Med Flush (250 mL) 15 ML IV (14:54)
[2020-12-20 16:48] VITALS: BP 155/66; PULSE 66; RESP 16; TEMP 36.6; O2SAT 94
== END ==
PROVIDERS: PCP Family Medicine; Referring Provider Psychiatry & Neurology Neurology; Visit Provider Psychiatry & Neurology Neurology
DX: G35 Multiple sclerosis (principal)
CPT/HCPCS: 96365; J7050; A4216; J2930

== ENCOUNTER → 2020-12-21 14:19 | Outpatient (CLI) | payer MEDICARE, SELFPAY ==
[2020-12-21] MEDS: 0.9% NaCl IVPB Med Flush (250 mL) 15 ML IV (14:28)
[2020-12-21] MEDS: 0.9% NaCl Peripheral Flush Adult/Peds IV (14:28)
[2020-12-21 14:33] VITALS: BP 141/71; PULSE 62; RESP 18; TEMP 36.8; O2SAT 96
== END ==
PROVIDERS: PCP Family Medicine; Referring Provider Psychiatry & Neurology Neurology; Visit Provider Psychiatry & Neurology Neurology
DX: G35 Multiple sclerosis (principal)
CPT/HCPCS: 96365; J7050; A4216; J2930

== ENCOUNTER → 2020-12-24 09:13 | Outpatient (CLI) | payer MEDICARE, SELFPAY ==
[2020-12-24 10:09] LABS: Absolute Lymphocyte Count 2.04 X10^3/uL (0.83-4.51); Absolute Neutrophil Count 4.2 X10^3/uL (2.0-7.7); Basophil# 0.01 X10^3/uL; Basophil% 0.1 % (0-1); Eosinophil# 0.02 X10^3/uL; Eosinophils% 0.3 % (0-5); Hematocrit 41.4 % (37-47); Hemoglobin 12.9 g/dL (12.0-15.0); Lymphocyte # 2.04 X10^3/ul (0.83-4.51); Lymphocyte % 29.3 % (19-41); Mean Corp Hgb Conc 31.2 g/dL (32-36); Mean Corpuscular Hgb 27.3 pg (27.0-32.0); Mean Corpuscular Volume 87.7 fL (81-99); Mean Platelet Vol. 10.3 fl (6.2-12.0); Monocyte# 0.62 X10^3/uL; Monocyte% 8.9 % (0-10); NRBC Flagged by Analyzer 0 % (0-5); Neutrophil # 4.22 X10^3/uL (2.7-7.7); Neutrophil % 60.5 % (47-70); Platelet Count 229 K/mm3 (150-450); RBC Distribution Width CV 13.6 % (11.6-14.6); RBC Distribution Width SD 43.7 fl (35.1-43.9); Red Blood Count 4.72 M/mm3 (4.2-5.4)
[2020-12-24 10:50] LABS: ALB/GLOB Ratio 0.9 RATIO (0.9-2.4); AST(SGOT) 14 U/L (15-37); Alanine Aminotransfer ALT/SGPT 40 U/L (13-56); Alkaline Phosphatase 56 U/L (45-117); Anion Gap 4 (5-15); BUN 23 mg/dL (7-18); BUN/Creat Ratio 35.4 RATIO (10-20); Calcium,Total 10.2 mg/dL (8.5-10.1); Chloride 106 mmol/L (98-107); Creatinine, Serum 0.65 mg/dL (0.55-1.02); EST Glomerular Filtration Rate 95 mL/min (>60); Est Glom Filt Rate - Afr Amer 115 mL/min (>60); Globulin 3.5 g/dL (2.2-4.2); Glucose 77 mg/dL (74-106); Potassium 3.7 mmol/L (3.5-5.1); Protein, Total 6.5 g/dL (6.4-8.2); Sodium Level 141 mmol/L (136-145)
== END ==
PROVIDERS: PCP Family Medicine; Referring Provider Psychiatry & Neurology Neurology; Visit Provider Psychiatry & Neurology Neurology
DX: G35 Multiple sclerosis (principal)
CPT/HCPCS: 36415; 80053; 85025

== ENCOUNTER → 2021-01-18 09:39 | Outpatient (CLI) | payer MEDICARE, SELFPAY ==
--- NOTE | 2021-01-18 09:42 | RAD_ITS ---
STUDY: X-RAY - LUMBAR SPINE REASON FOR EXAM: Female, 70 years old. Low back pain TECHNIQUE: 3 view(s) of the lumbar spine were obtained. COMPARISON: None FINDINGS: Normal lumbar lordosis. There is a dextroscoliosis of the lumbar spine. There is a normal alignment of the vertebrae in the lateral view. There is multilevel endplate spondylosis of the lumbar vertebrae. There is multi-level degenerative disc disease with multi-level disc space narrowing. There is no demonstrated fracture. There is atherosclerotic calcification of the abdominal aorta without a demonstrated aneurysm. IVC filter noted. Neural stimulator catheter noted over the pelvis RAD/Lumbar Spine 2 or 3 Views IMPRESSION: Degenerative changes of the spine, as detailed above. No demonstrated fracture Dextroscoliosis Electronically Signed: Joel Gómez MD at 10:08 EDT , Service support ,
== END ==
PROVIDERS: PCP Family Medicine; Referring Provider Psychiatry & Neurology Neurology; Visit Provider Psychiatry & Neurology Neurology
DX: M47.816 Spondylosis without myelopathy or radiculopathy, lumbar region (principal); M51.36 Other intervertebral disc degeneration, lumbar region; M48.061 Spinal stenosis, lumbar region without neurogenic claudication
CPT/HCPCS: 72100

== ENCOUNTER → 2021-03-01 07:32 | Outpatient (CLI) | payer MEDICARE, SELFPAY ==
--- NOTE | 2021-03-01 07:34 | CT_ITS ---
STUDY: CTA OF THE BRAIN REASON FOR EXAM: Female, 70 years old. Family History of Cerebral Aneurysm RADIATION DOSAGE (If Supplied By Facility): CTDIvol = ( 31.66 ) mGy, DLP = ( 1107.21 ) mGycm TECHNIQUE: CT angiography was performed with a multi-detector CT scanner. Data acquisition was obtained from the skull base through the vertex following intravenous administration of IV 100mL Isovue-370. MIP images were reconstructed from the axial data set. Post-processing of the angiographic images was performed, with multiplanar reformation and 3D reconstruction. Individualized dose optimization techniques were used for this CT. COMPARISON: Comparison is made with prior examination dated 08/02/2020. FINDINGS: Normal bilateral petrous carotid arteries. There is calcified plaque formation of the right cavernous carotid artery, without a cross-sectional luminal stenosis. There is calcified plaque formation of the left cavernous carotid artery, without a cross-sectional luminal stenosis. Normal right A1 segments of the anterior cerebral artery. Normal left A1 segments of the anterior cerebral artery. Normal intact anterior communicating artery (ACOM). Normal bilateral A2 segments of the anterior cerebral arteries. Normal right M1 and M2 segments of the middle cerebral arteries, with a normal M1 bifurcation. Normal left M1 and M2 segments of the middle cerebral arteries, with a normal M1 bifurcation. Normal right posterior communicating artery (PCOM). Normal left posterior communicating artery (PCOM). Normal bilateral vertebral arteries. Normal basilar artery with a normal basilar bifurcation. The visualized bilateral superior cerebellar (SCA) arteries are normal. Normal bilateral P1, P2 and visualized P3 segments of the posterior cerebral arteries. There is no demonstrated aneurysm of the [place]. Stable cerebral atrophy. CT/CTA Head W/WO Contrast IMPRESSION: Normal [place] without a demonstrated aneurysm or hemodynamically significant stenosis. Electronically Signed: Timothy Rivera MD at 8:50 EST , Service support ,
[2021-03-01 07:55] LABS: CREATININE FINGERSTICK 0.8 mg/dL (0.55-1.02); EGFR FINGERSTICK > 60.0000 mL/min (>60)
== END ==
PROVIDERS: PCP Family Medicine; Referring Provider Psychiatry & Neurology Neurology; Visit Provider Psychiatry & Neurology Neurology
DX: Z13.6 Encounter for screening for cardiovascular disorders (principal); Z82.49 Family history of ischemic heart disease and other diseases of the circulatory system
CPT/HCPCS: 70496; Q9967

== ENCOUNTER 2021-07-02 11:00 | Outpatient (CLI) | payer MEDICARE, SELFPAY | END 2021-07-02 23:59 | disposition home or self-care (01) | PROVIDERS: PCP Family Medicine; Visit Provider Nurse Practitioner Acute Care | DX: G47.33 Obstructive sleep apnea (adult) (pediatric) (principal) ==

== ENCOUNTER → 2021-10-11 | Outpatient (CLI) | payer MEDICARE, SELFPAY ==
[2021-10-11 09:23] LABS: Hematocrit 40.4 % (37-47); Hemoglobin 12.9 g/dL (12.0-15.0); Mean Corp Hgb Conc 31.9 g/dL (32-36); Mean Corpuscular Hgb 27.5 pg (27.0-32.0); Mean Corpuscular Volume 86.1 fL (81-99); Mean Platelet Vol. 9.7 fl (6.2-12.0); POSITIVE DIFFERENTIAL YES; Platelet Count 261 K/mm3 (150-450); RBC Distribution Width CV 13.3 % (11.6-14.6); RBC Distribution Width SD 41.8 fl (35.1-43.9); Red Blood Count 4.69 M/mm3 (4.2-5.4); White Blood Count 3.9 K/mm3 (4.4-11.0)
[2021-10-11 10:18] LABS: AST(SGOT) 19 U/L (15-37); Alanine Aminotransfer ALT/SGPT 32 U/L (13-56); Albumin, Serum 3.9 g/dL (3.2-5.0); Alkaline Phosphatase 63 U/L (45-117); Anion Gap 5 (5-15); BUN 20 mg/dL (7-18); BUN/Creat Ratio 23.9 RATIO (10-20); Calcium,Total 10.5 mg/dL (8.5-10.1); Chloride 109 mmol/L (98-107); Cholesterol 148 mg/dL (200); Creatinine, Serum 0.84 mg/dL (0.55-1.02); EST Glomerular Filtration Rate 71 mL/min (>60); Est Glom Filt Rate - Afr Amer 86 mL/min (>60); Globulin 3.8 g/dL (2.2-4.2); Glucose 109 mg/dL (74-106); High Density Lipoprotein 32 mg/dL; Magnesium 2.2 mg/dL (1.6-2.6); Potassium 4.1 mmol/L (3.5-5.1); Protein, Total 7.7 g/dL (6.4-8.2); Sodium Level 141 mmol/L (136-145); Thyroid Stim Hormone (TSH) 2.46 uIU/mL (0.358-3.74); Triglycerides 182 mg/dL; Very Low Density Lipoprotein 36 mg/dL (5-40)
[2021-10-11 10:19] LABS: Differential Indicated SCAN CRITERIA MET
[2021-10-15 15:15] LABS: Pathologist Review Reviewed
== END | disposition home or self-care (01) ==
LOC: LAB 08:48
PROVIDERS: PCP Family Medicine
DX: I11.0 Hypertensive heart disease with heart failure (principal); I50.9 Heart failure, unspecified; I48.91 Unspecified atrial fibrillation; R06.00 Dyspnea, unspecified; I25.10 Atherosclerotic heart disease of native coronary artery without angina pectoris; Z95.0 Presence of cardiac pacemaker; Z95.1 Presence of aortocoronary bypass graft
CPT/HCPCS: 36415; 80053; 80061; 83735; 84443; 85025; 85027; 85049

== ENCOUNTER → 2021-11-21 | Outpatient (CLI) | payer MEDICARE, SELFPAY ==
[2021-11-21 15:01] LABS: Basophil# 0.02 X10^3/uL; Basophil% 0.4 % (0-1); Eosinophil# 0.11 X10^3/uL; Eosinophils% 2.1 % (0-5); Hematocrit 41.7 % (37-47); Hemoglobin 12.8 g/dL (12.0-15.0); Lymphocyte % 11.5 % (19-41); Mean Corp Hgb Conc 30.7 g/dL (32-36); Mean Corpuscular Hgb 27.2 pg (27.0-32.0); Mean Corpuscular Volume 88.7 fL (81-99); Mean Platelet Vol. 10.6 fl (6.2-12.0); Monocyte# 0.44 X10^3/uL; Monocyte% 8.5 % (0-10); NRBC Flagged by Analyzer 0 % (0-5); Neutrophil # 4.01 X10^3/uL (2.7-7.7); Neutrophil % 77.1 % (47-70); POSITIVE DIFFERENTIAL YES; Platelet Count 283 K/mm3 (150-450); RBC Distribution Width CV 13.8 % (11.6-14.6); RBC Distribution Width SD 44.7 fl (35.1-43.9); White Blood Count 5.2 K/mm3 (4.4-11.0)
[2021-11-21 15:12] LABS: Differential Indicated SCAN CRITERIA MET
[2021-11-21 15:37] LABS: Differential Comment SCANNED
== END | disposition home or self-care (01) ==
LOC: MTLAB 11:29
PROVIDERS: PCP Family Medicine; Referring Provider Psychiatry & Neurology Neurology; Visit Provider Psychiatry & Neurology Neurology
DX: G35 Multiple sclerosis (principal)
CPT/HCPCS: 36415; 82652; 85025

== ENCOUNTER → 2021-12-09 | Outpatient (CLI) | payer MEDICARE, SELFPAY ==
--- NOTE | 2021-12-09 13:06 | VDLE_ITS ---
Reason For Study: Left calf pain/tenderness Procedure LEFT This is a venous duplex using B-mode, color GSV is normal. flow and spectral Doppler. CFV is compressible, spontaneous, phasic, Exam performed in department. competent, and demonstrates normal A preliminary report was called and/or faxed augmentation. to [facility]. FV is compressible, spontaneous, phasic, competent and demonstrates normal augmentation. POP V is compressible, spontaneous, phasic, competent and demonstrates normal augmentation. T/P Trunk is compressible. PTV is compressible. LT PerV is compressible. VL/Venous Duplex US, Unilateral Interpretation Summary There is no evidence of left lower extremity deep vein thrombosis. Left great s aphenous vein appears patent and compressible segmentally. Ordering Physician: García Clemente Referring Physician: MD Nancy Jamie Performed By: Phyllis Lei RVT
--- NOTE | 2021-12-09 15:00 | ST.MBS ---
Modified Barium Swallow - Patient Information Study Date: 12/09/21 Study Time: 13:00 Direct Billable Minutes: 97 Total Minutes procedure & reportin Diagnosis: Dysphagia (R13.10), Multiple Sclerosis (G35) Referring Physician: García Clemente Reason for Referral: Objectively assess swallow function, risk for aspiration, and determine recommendations for least restrictive diet textures and compensatory strategies to improve safety of swallow. Medical History: The patient is a 71-year-old female with PMH including MS (since 1968), GERD, back pain, CAD, HTN, REBECCA, PE, TIA (>5 years ago) (SEE EMR for full PMH). She had recent follow-up with her neurologist, Dr. Clemente, on 11/21/2021 to manage relapsing MS. Most recent exacerbation was March 2020, but she reported increased swallowing difficulty at her neurology appointment. She was referred for MBSS to objectively assess concern for swallow dysfunction and aspiration risk. The patient reports increased swallowing difficulty in the past 6 months characterized by sensation of food caught in her throat causing coughing spells or sensation of drinks going down wrong causing coughing spells. Her reports this occurs about every other meal. Current Diet Ordered: Regular textures / Thin liquids Dentition: Upper Dentures, Partials - Lower Mental Status: WNL - Able to follow commands for evaluation without difficulty Respiratory Status: Oxygenating on Room Air - Penetration-Aspiration Scale Penetration-Aspiration Scale: OBJECTIVE ASSESSMENT OF SWALLOW FUNCTION (QUANTITATIVE ? PER TRIAL): PENETRATION / ASPIRATION SCALE ([place]): 1 = does not enter airway 2 = enters airway/above vocal folds/ejected 3 = enters airway/above vocal folds/not ejected 4 = enters airway/contacts vocal folds/ejected 5 = enters airway/contacts vocal folds/not ejected 6 = enters airway/below vocal folds/ejected 7 = enters airway/below vocal folds/not ejected despite effort 8 = enters airway/below vocal folds/no effort VIDEOFLOROSCOPIC SCALE SCORE ([place]): Grade I = aspiration of material that has penetrated into the laryngeal vestibule, intact cough reflex Grade II = aspiration < 10 % of the bolus, intact cough reflex Grade III = aspiration of < 10 % of the bolus, reduced cough reflex or aspiration of > 10 % of the bolus, intact cough reflex Grade IV = aspiration of > 10 % of the bolus, reduced cough reflex - Penetration-Aspiration Scale Score Thin Liquid via teaspoon Result: 1= does not enter airway Thin Liquid via teaspoon Trial 2 Result: 1= does not enter airway Thin Liquid via large single sip from cup Result: 3= enters airways/above vocal folds/not ejected Thin Liquid via small single sip from cup Result: 2= enter airway/above vocal folds/ejected [place] Thick Liquid via small single sip from cup Result: 1= does not enter airway Honey Thick Liquid via small single sip from cup Result: 7= enters airways/below vocal folds/not ejected despite effort Pudding via teaspoon with esophageal screen Result: 1= does not enter airway 1/2 Cookie Result: 1= does not enter airway - Cough following trial; however, laryngeal vestibule and airway appeared clear of contrast Thin Liquid via single sip from straw Result: 1= does not enter airway Thin Liquid via sequential sips from straw Result: 3= enters airways/above vocal folds/not ejected Thin Liquid via small single sip from cup Effortful swallow Result: 3= enters airways/above vocal folds/not ejected Thin Liquid via single sip from straw Trial 2 Result: 1= does not enter airway - Oral Phase Labial Seal: No Labial Escape Tongue Control During Bolus Hold: Posterior escape of less than half of bolus Bolus Preparation/Mastication: Slow prolonged chewing/mashing with complete recollection Bolus Transport/Lingual Motion: Slowed tongue motion Oral Residue: Trace residue lining oral structures - Pharyngeal Phase Initiation of Pharyngeal Swallow: Bolus head in pyriforms Laryngeal Elevation: Partial superior movement thyroid cart/partial apprx aryt-epig petiole Anterior Hyoid Excursion: Complete anterior movement Epiglottic Movement: Partial inversion - inconsistent epiglottic inversion Laryngeal Vestibule Closure at Height of Swallow: Incomplete; narrow column of air/contrast in laryngeal vestibule Pharyngeal Stripping Wave: Present - complete Pharyngoesophageal Segment Opening: Complete distension and complete duration; no obstruction of flow Tongue Base Retraction: Narrow column of contrast between tongue base & post. pharyngeal wall Pharyngeal Residue: Trace residue within or on pharyngeal structures - Esophageal Phase Esophageal Clearance: Complete clearance - Treatment Strategies Effects of treatment strategies attemped:: Effortful swallow = Not effective. Decreased sip size = Effective. Decreased rate with sips = Effective. - Diagnosis/Impression Diagnosis: Mild-moderate oropharyngeal phase dysphagia (R13.12) Impression: The oral phase is marked by... -Decreased bolus control with premature posterior loss of >1/2 of boluses to the pyriforms resulting in suboptimal bolus placement prior to swallow onset. -Delayed and slowed tongue motion for A-P transport. -Adequate mastication for cookie. Pt's states that she has a difficult time chewing some meats. -Trace oral residues. The pharyngeal phase is marked by... -Decreased airway closure due to decreased laryngeal elevation. -She inconsistently demonstrated complete epiglottic inversion. -Trace pharyngeal residue. -Frequent laryngeal penetration of thin liquid trials by cup, which did not reliably eject from the laryngeal vestibule in 2/3 trials. Laryngeal penetration of sequential sips by cup and straw that did not fully eject from the laryngeal vestibule. The patient is at increased risk for aspiration after the swallow with contrast remaining in the laryngeal vestibule. -Aspiration of honey thick liquids by cup during the second swallow, which the patient independently initiated to clear trace oral and pharyngeal residues. - Recommendations Diet: Regular Textures - Easy to Chew meats (ground meats w/ sauce/gravy for meats that cannot be prepared fork-cut), Thin Liquids Compensatory Strategies: Small Bites, Small Sips, Sips by straw only - Sips one at at time, Slow Rate, Alternate bites/solids and sips/liquids, Sitting upright, Remain sitting upright for 30 minutes after PO intake Supervision: Assist as needed - Family to provide verbal cues as needed Recommend Repeat Modified Barium Swallow: TBD Need for Skilled Speech Therapy Services: Yes Comment: Will recommend the patient for outpatient dysphagia therapy to address mild-moderate deficits in oropharyngeal swallow function. Would consider the patient for oropharyngeal strengthening to improve lingual coordination/strength, swallow onset, and laryngeal elevation (lingual resistance, lingual coordination, Nuzhat, CTAR). The patient would benefit from thorough education regarding diet recommendations and recommended compensatory strategies. Education Completed: 1. Described result of evaluation., 2. Pt understands evaluation & agrees with goals and treatment plan., 4. Family/caregivers understand evaluation & agree w/ goals & tx plan., 7. Pt requires further education on strategies & risks. - Status Active ST Patient: Active - Contact Information [facility] Speech Therapy:: Adrienne Infante M.A. [facility] Speech-Language Pathologist [facility] [address] [place] [address] [email or web address] [phone] 12/09/21 15:13
== END | disposition home or self-care (01) ==
LOC: RAD 13:06
PROVIDERS: PCP Family Medicine; Referring Provider Psychiatry & Neurology Neurology; Visit Provider Psychiatry & Neurology Neurology
DX: R13.10 Dysphagia, unspecified (principal); G35 Multiple sclerosis; M79.662 Pain in left lower leg
CPT/HCPCS: 74230; 92611; 93971

== ENCOUNTER 2022-01-09 08:10 | Outpatient (RCR) | payer MEDICARE, SELFPAY ==
--- NOTE | 2022-01-09 08:01 | ST ---
[facility] Speech Pathology [address] [place] [address] Modified Barium Swallow Study MR#: [id number] Acct: [id number] Name: JENNIFER KNAPP Rep #: [id number] : 1950 71 From: Adrienne Infante M.A., [facility] Modified Barium Swallow - Patient Information Study Date: 12/09/21 Study Time: 13:00 Direct Billable Minutes: 97 Total Minutes procedure & reportin Diagnosis: Dysphagia (R13.10), Multiple Sclerosis (G35) Referring Physician: García Clemente Reason for Referral: Objectively assess swallow function, risk for aspiration, and determine recommendations for least restrictive diet textures and compensatory strategies to improve safety of swallow. Medical History: The patient is a 71-year-old female with PMH including MS (since 1968), GERD, back pain, CAD, HTN, REBECCA, PE, TIA (>5 years ago) (SEE EMR for full PMH). She had recent follow-up with her neurologist, Dr. Clemente, on 11/21/2021 to manage relapsing MS. Most recent exacerbation was March 2020, but she reported increased swallowing difficulty at her neurology appointment. She was referred for MBSS to objectively assess concern for swallow dysfunction and aspiration risk. The patient reports increased swallowing difficulty in the past 6 months characterized by sensation of food caught in her throat causing coughing spells or sensation of drinks going down wrong causing coughing spells. Her reports this occurs about every other meal. Current Diet Ordered: Regular textures / Thin liquids Dentition: Upper Dentures, Partials - Lower Mental Status: WNL - Able to follow commands for evaluation without difficulty Respiratory Status: Oxygenating on Room Air - Penetration-Aspiration Scale Penetration-Aspiration Scale: OBJECTIVE ASSESSMENT OF SWALLOW FUNCTION (QUANTITATIVE ? PER TRIAL): PENETRATION / ASPIRATION SCALE ([place]): 1 = does not enter airway 2 = enters airway/above vocal folds/ejected 3 = enters airway/above vocal folds/not ejected 4 = enters airway/contacts vocal folds/ejected 5 = enters airway/contacts vocal folds/not ejected 6 = enters airway/below vocal folds/ejected 7 = enters airway/below vocal folds/not ejected despite effort 8 = enters airway/below vocal folds/no effort VIDEOFLOROSCOPIC SCALE SCORE ([place]): Grade I = aspiration of material that has penetrated into the laryngeal vestibule, intact cough reflex Grade II = aspiration < 10 % of the bolus, intact cough reflex Grade III = aspiration of < 10 % of the bolus, reduced cough reflex or aspiration of > 10 % of the bolus, intact cough reflex Grade IV = aspiration of > 10 % of the bolus, reduced cough reflex - Penetration-Aspiration Scale Score Thin Liquid via teaspoon Result: 1= does not enter airway Thin Liquid via teaspoon Trial 2 Result: 1= does not enter airway Thin Liquid via large single sip from cup Result: 3= enters airways/above vocal folds/not ejected Thin Liquid via small single sip from cup Result: 2= enter airway/above vocal folds/ejected [place] Thick Liquid via small single sip from cup Result: 1= does not enter airway Honey Thick Liquid via small single sip from cup Result: 7= enters airways/below vocal folds/not ejected despite effort Pudding via teaspoon with esophageal screen Result: 1= does not enter airway 1/2 Cookie Result: 1= does not enter airway - Cough following trial; however, laryngeal vestibule and airway appeared clear of contrast Thin Liquid via single sip from straw Result: 1= does not enter airway Thin Liquid via sequential sips from straw Result: 3= enters airways/above vocal folds/not ejected Thin Liquid via small single sip from cup Effortful swallow Result: 3= enters airways/above vocal folds/not ejected Thin Liquid via single sip from straw Trial 2 Result: 1= does not enter airway - Oral Phase Labial Seal: No Labial Escape Tongue Control During Bolus Hold: Posterior escape of less than half of bolus Bolus Preparation/Mastication: Slow prolonged chewing/mashing with complete recollection Bolus Transport/Lingual Motion: Slowed tongue motion Oral Residue: Trace residue lining oral structures - Pharyngeal Phase Initiation of Pharyngeal Swallow: Bolus head in pyriforms Laryngeal Elevation: Partial superior movement thyroid cart/partial apprx aryt-epig petiole Anterior Hyoid Excursion: Complete anterior movement Epiglottic Movement: Partial inversion - inconsistent epiglottic inversion Laryngeal Vestibule Closure at Height of Swallow: Incomplete; narrow column of air/contrast in laryngeal vestibule Pharyngeal Stripping Wave: Present - complete Pharyngoesophageal Segment Opening: Complete distension and complete duration; no obstruction of flow Tongue Base Retraction: Narrow column of contrast between tongue base & post. pharyngeal wall Pharyngeal Residue: Trace residue within or on pharyngeal structures - Esophageal Phase Esophageal Clearance: Complete clearance - Treatment Strategies Effects of treatment strategies attemped:: Effortful swallow = Not effective. Decreased sip size = Effective. Decreased rate with sips = Effective. - Diagnosis/Impression Diagnosis: Mild-moderate oropharyngeal phase dysphagia (R13.12) Impression: The oral phase is marked by... -Decreased bolus control with premature posterior loss of >1/2 of boluses to the pyriforms resulting in suboptimal bolus placement prior to swallow onset. -Delayed and slowed tongue motion for A-P transport. -Adequate mastication for cookie. Pt's states that she has a difficult time chewing some meats. -Trace oral residues. The pharyngeal phase is marked by... -Decreased airway closure due to decreased laryngeal elevation. -She inconsistently demonstrated complete epiglottic inversion. -Trace pharyngeal residue. -Frequent laryngeal penetration of thin liquid trials by cup, which did not reliably eject from the laryngeal vestibule in 2/3 trials. Laryngeal penetration of sequential sips by cup and straw that did not fully eject from the laryngeal vestibule. The patient is at increased risk for aspiration after the swallow with contrast remaining in the laryngeal vestibule. -Aspiration of honey thick liquids by cup during the second swallow, which the patient independently initiated to clear trace oral and pharyngeal residues. - Recommendations Diet: Regular Textures - Easy to Chew meats (ground meats w/ sauce/gravy for meats that cannot be prepared fork-cut), Thin Liquids Compensatory Strategies: Small Bites, Small Sips, Sips by straw only - Sips one at at time, Slow Rate, Alternate bites/solids and sips/liquids, Sitting upright, Remain sitting upright for 30 minutes after PO intake Supervision: Assist as needed - Family to provide verbal cues as needed Recommend Repeat Modified Barium Swallow: TBD Need for Skilled Speech Therapy Services: Yes Comment: Will recommend the patient for outpatient dysphagia therapy to address mild-moderate deficits in oropharyngeal swallow function. Would consider the patient for oropharyngeal strengthening to improve lingual coordination/strength, swallow onset, and laryngeal elevation (lingual resistance, lingual coordination, Nuzhat, CTAR). The patient would benefit from thorough education regarding diet recommendations and recommended compensatory strategies. Education Completed: 1. Described result of evaluation., 2. Pt understands evaluation & agrees with goals and treatment plan., 4. Family/caregivers understand evaluation & agree w/ goals & tx plan., 7. Pt requires further education on strategies & risks. - Status Active ST Patient: Active - Contact Information [facility] Speech Therapy:: Adrienne Infante M.A. [employer] Speech-Language Pathologist [address] [address] [email or web address] [phone] 12/09/21 15:13 12/09/21 [id number] <Electronically signed by Adrienne Infante M.A., [employer]> Date/Time
--- NOTE | 2022-01-09 09:28 | HP.SP.EV_ITS ---
History - History Date of Eval: 01/09/22 Medical Diagnosis (from RX): Dysphagia (R13.10); Multiple Sclerosis (G35) Date of Onset of Diagnosis: MS since 1968 Previous speech therapy: Yes Results: MBSS see below. Other Relevant Medical History/Diagnoses/Surgery: JENNI KNAPP is a 71-year-old female who presents to [facility] on 01/09/22 following concerns with her swallowing. Pt with PMH including MS (since 1968), GERD, back pain, CAD, HTN, REBECCA, PE, TIA (>5 years ago) (SEE EMR for full PMH). Per MBSS report, [Jenni] had recent follow-up with her neurologist, Dr. Clemente, on 11/21/2021, to manage relapsing MS. Most recent exacerbation was March 2020, but she reported increased swallowing difficulty at her neurology appointment. She was referred for MBSS to objectively assess concern for swallow dysfunction and aspiration risk. The patient reports increased swallowing difficulty in the past 6 months characterized by sensation of food caught in her throat causing coughing spells or sensation of drinks going down wrong causing coughing spells. Her reports this occurs about every other meal. Pt reporting choking on foods/drinks for about 4/5 months now. She also reports odynophagia at the chest level. Pt reporting she has a hx with GI from about 11 years ago with a doctor in [place], however does not recall the findings from that encounter. Medications related to this diagnosis: Symbicort, vitamin C, Cranberry Extract, Iron, Multivitamin, Aspirin, Fenofibrate, Baclofen, Gabapentin, Pravastatin, Eliquis, Losartan, Spironolactone, Magnesium, Esomeprazole, Carvedilol, Diroximel fumarate Smoking Status: Former smoker Hx Smoking: Yes - quit pd for 20 yrs Hx Smoking Cessation Date: 04/13/95 Hx Tobacco Use: No - Pain Is pain an issue with your current prescribed condition?: No Patient Allergies - Allergies Allergies glatiramer (copolymer 1) [From Copaxone] Allergy (Verified 11/27/21 09:44) Itching itching and redness surrounding injection site Subjective Dysphagia - Symptoms Reported Symptoms/Problems with: Coughing, Choking, Difficulty Swallowing Solids, Difficulty Swallowing Liquids, Food gets stuck - Current Diet Solids Current Diet: Regular Other: IDDSI Level 7: Regular, Easy to Chew - Current Diet Liquids Current Liquids: Thin - Comments Education -: Pt noting to fatigue while walking back to speech therapy room via requesting to take a break detention to room (~40-50 feet) d/t experiencing significant fatigue. Pt serving as poor historian re: when she experiences the choking or pressure on her chest. Reviewed Pt's MBSS from 12/09/21 discussing the current recommended diet of Easy to Chew solids and thin liquids. Discussed given Pt's dx of multiple sclerosis wanting to avoid oropharyngeal strengthening exercises which would fatigue her swallowing and increase her risk of aspiration. Instead, provided chart handout of safe swallowing aspiration precautions with strong emphasis on slowing her rate of intake, taking smaller bites/drinks, alternating bites/drinks to help minimize the fatigue she is presumably experiencing with meals, and reducing distractions to prevent mindless eating. Also recommend 4-5 smaller meals a day with Pt reporting this would not be possible since her daughter works and she preps the meals. Encouraged Pt to try to implement the other 7 strategies. She reports at baseline she has a rapid rate of intake and watches TV while she eats. Pt reporting it will be difficult for her to implement these strategies after eating a certain way for 71 years. Encouraged her to do the best she can. Also provided handouts on the recommended IDDSI diet and briefly reviewed each. Discussed how the safe swallowing strategies would help prevent odynophagia and keep her from choking - Pt appearing with neutral affect to this education. Discussed having Pt return for a follow-up in 4 weeks with Pt reporting that she would not return since she knows what she needs to be doing. Modified Barium Results Hx MBS Report Entered: Yes MBS Results (from prior exam): 01/09/22 08:01 Speech Therapy by [facility] [address] [place] [address] Modified Barium Swallow Study MR#: [id number] Acct: [id number] Name: JENNI KNAPP Rep #:[id number] : 1950 71 From: Adrienne Musa, [facility] Modified Barium Swallow - Patient Information Study Date: 12/09/21 Study Time: 13:00 Direct Billable Minutes: 97 Total Minutes procedure & reportin Diagnosis: Dysphagia (R13.10), Multiple Sclerosis (G35) Referring Physician: García Clemente Reason for Referral: Objectively assess swallow function, risk for aspiration, and determine recommendations for least restrictive diet textures and compensatory strategies to improve safety of swallow. Medical History: The patient is a 71-year-old female with PMH including MS (since 1968), GERD, back pain, CAD, HTN, REBECCA, PE, TIA (>5 years ago) (SEE EMR for full PMH). She had recent follow-up with her neurologist, Dr. Clemente, on 11/21/2021 to manage relapsing MS. Most recent exacerbation was March 2020, but she reported increased swallowing difficulty at her neurology appointment. She was referred for MBSS to objectively assess concern for swallow dysfunction and aspiration risk. The patient reports increased swallowing difficulty in the past 6 months characterized by sensation of food caught in her throat causing coughing spells or sensation of drinks going down wrong causing coughing spells. Her reports this occurs about every other meal. Current Diet Ordered: Regular textures / Thin liquids Dentition: Upper Dentures, Partials - Lower Mental Status: WNL - Able to follow commands for evaluation without difficulty Respiratory Status: Oxygenating on Room Air - Penetration-Aspiration Scale Penetration-Aspiration Scale: OBJECTIVE ASSESSMENT OF SWALLOW FUNCTION (QUANTITATIVE ? PER TRIAL): PENETRATION / ASPIRATION SCALE ([place]): 1 = does not enter airway 2 = enters airway/above vocal folds/ejected 3 = enters airway/above vocal folds/not ejected 4 = enters airway/contacts vocal folds/ejected 5 = enters airway/contacts vocal folds/not ejected 6 = enters airway/below vocal folds/ejected 7 = enters airway/below vocal folds/not ejected despite effort 8 = enters airway/below vocal folds/no effort VIDEOFLOROSCOPIC SCALE SCORE ([place]): Grade I = aspiration of material that has penetrated into the laryngeal vestibule, intact cough reflex Grade II = aspiration < 10 % of the bolus, intact cough reflex Grade III = aspiration of < 10 % of the bolus, reduced cough reflex or aspiration of > 10 % of the bolus, intact cough reflex Grade IV = aspiration of > 10 % of the bolus, reduced cough reflex - Penetration-Aspiration Scale Score Thin Liquid via teaspoon Result: 1= does not enter airway Thin Liquid via teaspoon Trial 2 Result: 1= does not enter airway Thin Liquid via large single sip from cup Result: 3= enters airways/above vocal folds/not ejected Thin Liquid via small single sip from cup Result: 2= enter airway/above vocal folds/ejected [place] Thick Liquid via small single sip from cup Result: 1= does not enter airway Honey Thick Liquid via small single sip from cup Result: 7= enters airways/below vocal folds/not ejected despite effort Pudding via teaspoon with esophageal screen Result: 1= does not enter airway 1/2 Cookie Result: 1= does not enter airway - Cough following trial; however, laryngeal vestibule and airway appeared clear of contrast Thin Liquid via single sip from straw Result: 1= does not enter airway Thin Liquid via sequential sips from straw Result: 3= enters airways/above vocal folds/not ejected Thin Liquid via small single sip from cup Effortful swallow Result: 3= enters airways/above vocal folds/not ejected Thin Liquid via single sip from straw Trial 2 Result: 1= does not enter airway - Oral Phase Labial Seal: No Labial Escape Tongue Control During Bolus Hold: Posterior escape of less than half of bolus Bolus Preparation/Mastication: Slow prolonged chewing/mashing with complete recollection Bolus Transport/Lingual Motion: Slowed tongue motion Oral Residue: Trace residue lining oral structures - Pharyngeal Phase Initiation of Pharyngeal Swallow: Bolus head in pyriforms Laryngeal Elevation: Partial superior movement thyroid cart/partial apprx aryt- epig petiole Anterior Hyoid Excursion: Complete anterior movement Epiglottic Movement: Partial inversion - inconsistent epiglottic inversion Laryngeal Vestibule Closure at Height of Swallow: Incomplete; narrow column of air/contrast in laryngeal vestibule Pharyngeal Stripping Wave: Present - complete Pharyngoesophageal Segment Opening: Complete distension and complete duration; no obstruction of flow Tongue Base Retraction: Narrow column of contrast between tongue base & post. pharyngeal wall Pharyngeal Residue: Trace residue within or on pharyngeal structures - Esophageal Phase Esophageal Clearance: Complete clearance - Treatment Strategies Effects of treatment strategies attemped:: Effortful swallow = Not effective. Decreased sip size = Effective. Decreased rate with sips = Effective. - Diagnosis/Impression Diagnosis: Mild-moderate oropharyngeal phase dysphagia (R13.12) Impression: The oral phase is marked by... -Decreased bolus control with premature posterior loss of >1/2 of boluses to the pyriforms resulting in suboptimal bolus placement prior to swallow onset. -Delayed and slowed tongue motion for A-P transport. -Adequate mastication for cookie. Pt's states that she has a difficult time chewing some meats. -Trace oral residues. The pharyngeal phase is marked by... -Decreased airway closure due to decreased laryngeal elevation. -She inconsistently demonstrated complete epiglottic inversion. -Trace pharyngeal residue. -Frequent laryngeal penetration of thin liquid trials by cup, which did not reliably eject from the laryngeal vestibule in 2/3 trials. Laryngeal penetration of sequential sips by cup and straw that did not fully eject from the laryngeal vestibule. The patient is at increased risk for aspiration after the swallow with contrast remaining in the laryngeal vestibule. -Aspiration of honey thick liquids by cup during the second swallow, which the patient independently initiated to clear trace oral and pharyngeal residues. - Recommendations Diet: Regular Textures - Easy to Chew meats (ground meats w/ sauce/gravy for meats that cannot be prepared fork-cut), Thin Liquids Compensatory Strategies: Small Bites, Small Sips, Sips by straw only - Sips one at at time, Slow Rate, Alternate bites/solids and sips/liquids, Sitting upright, Remain sitting upright for 30 minutes after PO intake Supervision: Assist as needed - Family to provide verbal cues as needed Recommend Repeat Modified Barium Swallow: TBD Need for Skilled Speech Therapy Services: Yes Comment: Will recommend the patient for outpatient dysphagia therapy to address mild-moderate deficits in oropharyngeal swallow function. Would consider the patient for oropharyngeal strengthening to improve lingual coordination/strength, swallow onset, and laryngeal elevation (lingual resist ance, lingual coordination, Nuzhat, CTAR). The patient would benefit from thorough education regarding diet recommendations and recommended compensatory strategies. Education Completed: 1. Described result of evaluation., 2. Pt understands evaluation & agrees with goals and treatment plan., 4. Family/caregivers understand evaluation & agree w/ goals & tx plan., 7. Pt requires further education on strategies & risks. - Status Active ST Patient: Active - Contact Information [facility] [place] Speech Therapy:: Adrienne Infante M.A. [facility] Speech-Language Pathologist [facility] [place] [address] [place] [address] [email or web address] [phone] 12/09/21 15:13 12/09/21 [id number] <Electronically signed by Adrienne Infante M.A., [facility]> Date/Time Initialized on 01/09/22 08:01 - END OF NOTE Plan - Plan Plan: No further tx warranted at this time d/t Pt politely declining following extensive education provided in evaluation today. - Recommendations MBS: Yes Treatment Warranted: No Comment: recommended follow-up MBSS should condition worsen following 4 weeks of faithfully implementing safe swallowing strategies discussed in evaluation today. Pt declining further treatment sessions. Education - Patient has Indicated that the Following Identified Educational Needs: None The Patient has indicated that they have no educational or learning abilities that may effect their care.: Yes - Patient Instruction Patient Education: Diagnosis, Safety Precautions, Diet Level, Home Exercise Program Person Taught: Patient, Family Teaching Method: Discussion, Demonstration, Handout, Teach back Response to teaching: Return demonstration, Verbalize understanding, Has Prior Knowledge
== END 2022-01-09 10:18 | disposition home or self-care (01) ==
LOC: SP 08:10
PROVIDERS: PCP Family Medicine; Referring Provider Psychiatry & Neurology Neurology; Visit Provider Psychiatry & Neurology Neurology
DX: G35 Multiple sclerosis; R13.12 Dysphagia, oropharyngeal phase
CPT/HCPCS: 92610

== ENCOUNTER 2022-02-05 13:46 | Outpatient (CLI) | payer MEDICARE, SELFPAY ==
[2022-02-05 13:57] VITALS: BP 144/62; PULSE 71; RESP 18; TEMP 35.7; O2SAT 95; BMI 41.1
[2022-02-05 16:00] VITALS: BP 130/61; PULSE 64; RESP 16; TEMP 36.3; O2SAT 95
== END 2022-02-05 23:59 | disposition home or self-care (01) ==
LOC: MEDOUTP 13:48
PROVIDERS: PCP Family Medicine; Referring Provider Psychiatry & Neurology Neurology; Visit Provider Psychiatry & Neurology Neurology
DX: G35 Multiple sclerosis (principal)
CPT/HCPCS: 96365; J7050; A4216; J2930

== ENCOUNTER 2022-02-06 13:49 | Outpatient (CLI) | payer MEDICARE, SELFPAY ==
[2022-02-06 13:52] VITALS: BP 141/65; PULSE 70; RESP 18; TEMP 35.6; O2SAT 94
--- NOTE | 2022-02-06 15:04 | NURSING ---
Pt's previous IV site, L. FA, infiltrated. RN removed IV, applied warm compress and restarted on R. arm/wrist area.
== END 2022-02-06 23:59 | disposition home or self-care (01) ==
LOC: MEDOUTP 13:50
PROVIDERS: PCP Family Medicine; Referring Provider Psychiatry & Neurology Neurology; Visit Provider Psychiatry & Neurology Neurology
DX: G35 Multiple sclerosis (principal)
CPT/HCPCS: 96365; 96366; J7050; A4216; J2930

== ENCOUNTER 2022-02-07 13:49 | Outpatient (CLI) | payer MEDICARE, SELFPAY ==
[2022-02-07 14:10] VITALS: BP 142/49; PULSE 62; RESP 16; TEMP 36.8; O2SAT 96
[2022-02-07 15:51] VITALS: BP 131/50; RESP 16
== END 2022-02-07 23:59 | disposition home or self-care (01) ==
LOC: MEDOUTP 13:49
PROVIDERS: PCP Family Medicine; Referring Provider Psychiatry & Neurology Neurology; Visit Provider Psychiatry & Neurology Neurology
DX: G35 Multiple sclerosis (principal)
CPT/HCPCS: 96365; J7050; A4216; J2930

== ENCOUNTER → 2022-10-21 | Outpatient (CLI) | payer MEDICARE, SELFPAY ==
[2022-10-21 10:37] LABS: Absolute Lymphocyte Count 0.49 X10^3/uL (0.83-4.51); Absolute Neutrophil Count 4.7 X10^3/uL (2.0-7.7); Basophil# 0.03 X10^3/uL; Basophil% 0.5 % (0-1); Eosinophil# 0.12 X10^3/uL; Hematocrit 41.7 % (37-47); Hemoglobin 12.8 g/dL (12.0-15.0); Lymphocyte # 0.49 X10^3/ul (0.83-4.51); Lymphocyte % 8.4 % (19-41); Mean Corp Hgb Conc 30.7 g/dL (32-36); Mean Corpuscular Hgb 27.2 pg (27.0-32.0); Mean Corpuscular Volume 88.7 fL (81-99); Mean Platelet Vol. 10.1 fl (6.2-12.0); Monocyte# 0.47 X10^3/uL; NRBC Flagged by Analyzer 0 % (0-5); Neutrophil # 4.72 X10^3/uL (2.7-7.7); Neutrophil % 80.6 % (47-70); POSITIVE DIFFERENTIAL YES; Platelet Count 312 K/mm3 (150-450); RBC Distribution Width CV 14.3 % (11.6-14.6); RBC Distribution Width SD 46.3 fl (35.1-43.9); White Blood Count 5.9 K/mm3 (4.4-11.0)
[2022-10-21 10:44] LABS: Differential Indicated SCAN CRITERIA MET
[2022-10-21 11:11] LABS: Differential Comment SCANNED
[2022-10-21 11:15] LABS: ALB/GLOB Ratio 0.9 RATIO (0.9-2.4); AST(SGOT) 21 U/L (15-37); Alanine Aminotransfer ALT/SGPT 37 U/L (13-56); Albumin, Serum 3.7 g/dL (3.2-5.0); Alkaline Phosphatase 87 U/L (45-117); Anion Gap 5 (5-15); BUN 16 mg/dL (7-18); BUN/Creat Ratio 19.9 RATIO (10-20); Calcium,Total 10.5 mg/dL (8.5-10.1); Chloride 107 mmol/L (98-107); EST Glomerular Filtration Rate 74 mL/min (>60); Est Glom Filt Rate - Afr Amer 90 mL/min (>60); Glucose 111 mg/dL (74-106); Magnesium 2.4 mg/dL (1.6-2.6); Potassium 4.8 mmol/L (3.5-5.1); Protein, Total 7.7 g/dL (6.4-8.2); Sodium Level 140 mmol/L (136-145); Thyroid Stim Hormone (TSH) 3.07 uIU/mL (0.358-3.74)
[2022-10-23 12:09] LABS: Vitamin D 1,25-Dihydroxy 65.1 pg/mL (24.8-81.5)
== END | disposition home or self-care (01) ==
LOC: MTLAB 09:04
PROVIDERS: PCP Family Medicine; Referring Provider Psychiatry & Neurology Neurology; Visit Provider Psychiatry & Neurology Neurology
DX: G35 Multiple sclerosis (principal); R53.1 Weakness; Z86.39 Personal history of other endocrine, nutritional and metabolic disease
CPT/HCPCS: 36415; 80053; 82652; 83735; 84443; 85025

== ENCOUNTER → 2022-12-03 | Outpatient (CLI) | payer MEDICARE, SELFPAY ==
--- NOTE | 2022-12-03 09:18 | BD_ITS ---
STUDY: DUAL ENERGY X-RAY ABSORPTIOMETRY / DXA REASON FOR EXAM: Female, 72 years old. M85.89 TECHNIQUE: Bone Mineral Density (BMD) measurements of lumbar spine and right hip were obtained. COMPARISON: None. FINDINGS: Lumbar Spine (L1-L4): g/cm2 (1.042) / T-score (0.0) / Z-score (2.3) Findings are suggestive of normal bone density with a low fracture risk. Right Femur Total: g/cm2 (0.752) / T-score (-1.6) / Z-score (0.2) Right Femoral Neck: g/cm2 (0.509) / T-score (-3.1) / Z-score (-1.0) BD/Dexa Bone Density Study IMPRESSION: The patient is considered osteoporotic as outlined below according to World Laith Organization (WHO) criteria with a high fracture risk. Reference Information: The T-score is the number of standard deviations above or below the standard which is normal for young adults at their peak bone mineral density. The World Health Organization (WHO) interprets the T-scores as follows: Above -1 Normal bone density Between -1 and -2.5 Osteopenia Equal to / or below -2.5 Osteoporosis As a practical clinical guideline, osteopenia may be graded as follows: Mild -1 through -1.5 Moderate -1.6 through -2.0 Severe -2.1 through -2.4 The Z-score is the number of standard deviations above or below age-matched controls. A Z-score of less than -1.5 would be considered abnormal. References: 1. NIH Osteoporosis and Related Bone Diseases www osteo.org 2. International Society for Clinical Densitometry www iscd.org 3. National Osteoporosis Foundation www nof.org Electronically Signed: Timothy Rivera MD at 9:11 EDT ,
== END | disposition home or self-care (01) ==
PROVIDERS: PCP Family Medicine; Referring Provider Podiatrist Foot & Ankle Surgery; Visit Provider Podiatrist Foot & Ankle Surgery
DX: M85.89 Other specified disorders of bone density and structure, multiple sites (principal)
CPT/HCPCS: 77080

== ENCOUNTER → 2022-12-17 | Outpatient (CLI) | payer MEDICARE, SELFPAY ==
--- NOTE | 2022-12-17 09:07 | ART_ITS ---
Reason For Study: PVD Procedure A bilateral lower extremity continuous wave Doppler with analog waveform analysis,segmental pressures,and ankle brachial indexes without exercise. Left Segmental Pressures Left brachial= 135mmHg. Left posterior tibial artery = 162mmHg. Left dorsalis pedis artery = 169mmHg. Left digit = 138 mmHg. The left dorsalis pedis waveforms are triphasic. The left posterior tibial artery waveforms are triphasic. Right Segmental Pressures Right brachial= 135mmHg. Right thigh = >254mmHg. Right calf = 117mmHg. Right posterior tibial artery = 124mmHg. Right dorsalis pedis artery = 125mmHg. Right digit = 97 mmHg. The right dorsalis pedis waveforms are biphasic. The right posterior tibial artery waveforms are biphasic. Indices The right ankle brachial index by the dorsalis pedis is 0.93. The right ankle brachial index by the posterior tibial artery is 0.92. The right digital-brachial index is 0.72. The left ankle brachial index by the dorsalis pedis is 1.25. The left ankle brachial index by the posterior tibial artery is 1.20. The left digital-brachial index is 1.02. VL/Lower Ext Art Exam w/o Exercis Interpretation Summary Right MICHAEL 0.93, mild arterial insufficieny. Doppler/PVR waveforms of the right leg mildly diminished distal SFA/popliteal. Left MICHAEL 1.25, normal. TBI and Doppler/PVR waveforms of the left leg normal at rest. Ordering Physician: Brandon Franco Referring Physician: MD Nancy Jamie Performed By: Phyllis Lei RVT
== END | disposition home or self-care (01) ==
LOC: CVS 09:06
PROVIDERS: PCP Family Medicine; Referring Provider Podiatrist Foot & Ankle Surgery; Visit Provider Podiatrist Foot & Ankle Surgery
DX: I73.89 Other specified peripheral vascular diseases (principal)
CPT/HCPCS: 93923

== ENCOUNTER 2023-05-08 07:22 | Day surgery (SDC) | payer MEDICARE, SELFPAY ==
[2023-04-30 12:21] LABS: Absolute Lymphocyte Count 0.49 X10^3/uL (0.83-4.51); Absolute Neutrophil Count 4.6 X10^3/uL (2.0-7.7); Basophil# 0.03 X10^3/uL; Basophil% 0.5 % (0-1); Eosinophil# 0.14 X10^3/uL; Eosinophils% 2.4 % (0-5); Hematocrit 41.2 % (37-47); Hemoglobin 12.5 g/dL (12.0-15.0); Lymphocyte # 0.49 X10^3/ul (0.83-4.51); Lymphocyte % 8.5 % (19-41); Mean Corp Hgb Conc 30.3 g/dL (32-36); Mean Corpuscular Hgb 26.9 pg (27.0-32.0); Mean Corpuscular Volume 88.8 fL (81-99); Mean Platelet Vol. 9.9 fl (6.2-12.0); Monocyte# 0.52 X10^3/uL; NRBC Flagged by Analyzer 0 % (0-5); Neutrophil # 4.59 X10^3/uL (2.7-7.7); Neutrophil % 79.3 % (47-70); POSITIVE DIFFERENTIAL YES; Platelet Count 309 K/mm3 (150-450); RBC Distribution Width CV 14.1 % (11.6-14.6); RBC Distribution Width SD 45.5 fl (35.1-43.9); Red Blood Count 4.64 M/mm3 (4.2-5.4); White Blood Count 5.8 K/mm3 (4.4-11.0)
[2023-04-30 12:35] LABS: Differential Indicated SCAN CRITERIA MET
[2023-04-30 12:38] LABS: Differential Comment SCANNED
[2023-04-30 13:00] LABS: Vitamin D,25 Hydroxy 31.8 ng/mL
[2023-04-30 13:16] LABS: AST(SGOT) 16 U/L (15-37); Alanine Aminotransfer ALT/SGPT 32 U/L (13-56); Albumin, Serum 3.6 g/dL (3.2-5.0); Alkaline Phosphatase 74 U/L (45-117); Anion Gap 4 (5-15); BUN 15 mg/dL (7-18); BUN/Creat Ratio 20.5 RATIO (10-20); Calcium,Total 10.8 mg/dL (8.5-10.1); Chloride 110 mmol/L (98-107); Creatinine, Serum 0.73 mg/dL (0.55-1.02); EST Glomerular Filtration Rate 83 mL/min (>60); Est Glom Filt Rate - Afr Amer 100 mL/min (>60); Globulin 3.7 g/dL (2.2-4.2); Glucose 107 mg/dL (74-106); Potassium 4.7 mmol/L (3.5-5.1); Protein, Total 7.3 g/dL (6.4-8.2); Sodium Level 141 mmol/L (136-145)
[2023-04-30 13:52] LABS: Hemoglobin A1c 5.5 % (3.8-5.6)
[2023-05-08] VITALS (7 sets, daily range): BP systolic 140–173; BP diastolic 55–85; PULSE 91–105; RESP 16–18; TEMP 36.2–37; O2SAT 93–97; BMI 41.5
--- OUTSIDE RECORDS SUMMARY | 2023-05-08 07:35 | XMS RPT_ITS | CCD ---
Author Name Unknown Address [address] [place] [address] Organization [facility] Care Team Providers Care Blade Bender Furnace Tender Name Role Phone MICKI MCCRACKEN Unavailable Unavailable EDMUNDO RODRIGUEZ Unavailable Unavailable MICKI MCCRACKEN Unavailable Unavailable EDMUNDO RODRIGUEZ Unavailable Unavailable Edmundo Rodriguez MD Primary Care Provider Liang Hanna MD Unavailable Da Hobbs MD, Chhaganlal Unavailable Kimi Morris MD Unavailable Edmundo Rodriguez MD Primary Care Provider Liang Hanna MD Unavailable Da Hobbs MDganlal Unavailable Kimi Morris DO Unavailable Kimi Morris DO Unavailable Edmundo Rodriguez MD Primary Care Provider Liang Hanna MD Unavailable Da Hobbs MD Chhaganlal Unavailable Liang Hanna MD Unavailable Edmundo Rodriguez MD Primary Care Provider Liang Hanna MD Unavailable Da Hobbs MD, Chhaganlal Unavailable Kimi Morris DO Unavailable Liang Hanna MD Unavailable PUJA CASTILLO Attending Unavailable EDMUNDO RODRIGUEZ Primary Care Unavailable KEVINEDMUNDO YU Primary Care Unavailable EDMUNDO RODRIGUEZ Referring Unavailable EDMUNDO RODRIGUEZ Primary Care Unavailable EDMUNDO RODRIGUEZ Attending Unavailable EDMUNDO RODRIGUEZ Primary Care Unavailable PUJA CASTILLO Referring Unavailable KEVINEDMUNDO YU Primary Care Unavailable PUJA CASTILLO Attending Unavailable EDMUNDO RODRIGUEZ Referring Unavailable EDMUNDO RODRIGUEZ Primary Care Unavailable EJ LEE Attending Unavailable EJ LEE Referring Unavailable EDMUNDO RODRIGUEZ Primary Care Unavailable CLARA CHRISTIANSON Kenyatta Attending Unavailable EDMUNDO RODRIGUEZ Primary Care Unavailable KEVINEDMUNDO YU Primary Care Unavailable Allergies Allergy Classification Reported Allergen(s) Allergy Type Date of Onset Reaction(s) Facility (20 sources) Glatiramer; Translations: [GLATIRAMER] Drug Allergy 07-20-2018 Itching, Rash [facility] Medications Current Medications Medication Drug Class(es) Dates Sig (Normalized) Sig (Original) codeine phosphate 2 mg/ml / guaiFENesin 20 mg/ml oral solution (1 source) Opioid Agonist Start: 04-02-2022 End: 04-09-2022 take 5 mL by mouth three times daily as needed codeine-guaiFENesi n (ROBITUSSIN AC) 10-100 mg/5 mL syrup Indications: Bacterial pneumonia Take 5 mL by mouth three times daily as needed for up to 7 days. 118 mL 0 04/02/2022 04/09/2022 Active Completed/Discontinued Medications Medication Drug Class(es) Dates Sig (Normalized) Sig (Original) Albuterol (20 sources) beta2-Adrenergic Agonist ALBUTEROL SULFATE HF A INHALATION Inhale as instructed. 0 Active Problems Active Problems Problem Classification Problem Date Documented Da te Episodic/Chronic Administrative/social admission (1 source) Repeated prescription; Translations: [Encounter for issue of repeat prescription] Episodic Cardiac dysrhythmias (10 sources) Paroxysmal atrial fibrillation; Translations: [Paroxysmal atrial fibrillation] Onset: 3 Chronic Conduction disorders (20 sources) Cardiac pacemaker in situ; Translations: [Presence of cardiac pacemaker] Onset: 6 09-14-2015 Chronic Congestive heart failure; nonhypertensive (15 sources) Congestive heart failure; Translations: [Heart failure, unspecified] Onset: 3 Chronic Coronary atherosclerosis and other heart disease (20 sources) Coronary atherosclerosis; Translations: [Atherosclerotic heart disease of [place] coronary artery without angina pectoris] Onset: 4 Chronic Deficiency and other anemia (20 sources) Iron deficiency anemia; Translations: [Iron deficiency anemia, unspecified] 10-13-2012 Episodic Disorders of lipid metabolism (20 sources) Hyperlipidemia; Translations: [Hyperlipidemia, unspecified] Onset: 3 10-12-2012 Chronic Esophageal disorders (20 sources) Gastroesophageal reflux disease; Translations: [Gastro-esophageal reflux disease without esophagitis] 04-08-2021 Chronic Essential hypertension (20 sources) Essential hypertension; Translations: [Essential (primary) hypertension] Onset: 5 Chronic Multiple sclerosis (20 sources) Multiple sclerosis; Translations: [Multiple sclerosis] Onset: 3 10-12-2012 Chronic Nutritional deficiencies (20 sources) Vitamin D deficiency; Translations: [Vitamin D deficiency, unspecified] 10-12-2012 Chronic Other connective tissue disease (20 sources) Neuropathic pain; Translations: [Neuralgia and neuritis, unspecified] 04-08-2021 Episodic Other connective tissue disease (1 source) Tendinitis of left elbow; Translations: [Other enthesopathies, not elsewhere classified] Episodic Other diseases of bladder and urethra (5 sources) Neurogenic bladder; Translations: [Neuromuscular dysfunction of bladder, unspecified] Onset: 3 11-10-2022 Chronic Other ear and sense organ disorders (1 source) Impacted cerumen in left ear; Translations: [Impacted cerumen, left ear] 02-18-2023 Episodic Other gastrointestinal disorders (5 sources) Irritable bowel syndrome; Translations: [Irritable bowel syndrome without diarrhea] Onset: 3 11-10-2022 Chronic Other lower respiratory disease (1 source) Cough; Translations: [Acute cough] Episodic Other nervous system disorders (5 sources) Hereditary peripheral neuropathy; Translations: [Hereditary and idiopathic neuropathy, unspecified] Onset: 6 11-10-2022 Chronic Other nervous system disorders (5 sources) Idiopathic peripheral neuropathy; Translations: [Hereditary and idiopathic neuropathy, unspecified] Onset: 5 11-10-2022 Chronic Other non-traumatic joint disorders (2 sources) Pain in left shoulder; Translations: [Pain in joint, shoulder region] Onset: 3 03-30-2023 Episodic Other nutritional; endocrine; and metabolic disorders (9 sources) Morbid obesity; Translations: [Morbid (severe) obesity due to excess calories] Onset: 3 Chronic Other nutritional; endocrine; and metabolic disorders (6 sources) Body mass index 40+ - severely obese; Translations: [Morbid (severe) obesity due to excess calories] Onset: 3 11-17-2022 Chronic Other nutritional; endocrine; and metabolic disorders (1 source) Morbid (severe) obesity due to excess calories; Translations: [Obesity, Class III, BMI 40-49.9 (morbid obesity) ([facility])] Onset: 3 Chronic Paralysis (14 sources) Spastic hemiplegia; Translations: [Spastic hemiplegia affecting unspecified side] Onset: 2 Chronic Pneumonia (except that caused by tuberculosis or sexually transmitted disease) (2 sources) Bacterial pneumonia; Translations: [Unspecified bacterial pneumonia] Episodic Residual codes; unclassified (20 sources) Obstructive sleep apnea syndrome; Translations: [Obstructive sleep apnea (adult) (pediatric)] 04-08-2021 Chronic Residual codes; unclassified (2 sources) Obstructive sleep apnea (adult) (pediatric); Translations: [REBECCA (obstructive sleep apnea)] Onset: 1 Chronic Spondylosis; intervertebral disc disorders; other back problems (20 sources) Backache; Translations: [Dorsalgia, unspecified] Onset: 7 10-12-2012 Episodic Transient cerebral ischemia (5 sources) Transient cerebral ischemia; Translations: [Transient cerebral ischemic attack, unspecified] Onset: 5 11-10-2022 Chronic Past or Other Problems Problem Classification Problem Date Documented Da te Episodic/Chronic Diabetes mellitus without complication (4 sources) Increased glucose level; Translations: [Other abnormal glucose] Onset: 08-27-2022 Episodic Genitourinary symptoms and ill-defined conditions (5 sources) Retention of urine; Translations: [Retention of urine, unspecified] Onset: 11-10-2022 11-10-2022 Episodic Malaise and fatigue (5 sources) Fatigue; Translations: [Other fatigue] Onset: 11-10-2022 11-10-2022 Episodic Other aftercare (5 sources) Long-term current use of anticoagulant; Translations: [MCC (current) use of anticoagulants] Onset: 11-10-2022 11-10-2022 Episodic Other connective tissue disease (5 sources) Pain in calf; Translations: [Pain in unspecified lower leg] Onset: 2021 11-10-2022 Episodic Other connective tissue disease (5 sources) Neuralgia; Translations: [Neuralgia and neuritis, unspecified] Onset: 12-06-2013 11-10-2022 Episodic Other connective tissue disease (5 sources) Pain in bilateral lower legs; Translations: [Pain in right lower leg] Onset: 11-10-2022 11-10-2022 Episodic Other gastrointestinal disorders (20 sources) Occult blood in stools; Translations: [Other fecal abnormalities] Onset: 05-04-2018 05-04-2018 Episodic Other gastrointestinal disorders (5 sources) Dysphagia; Translations: [Dysphagia, unspecified] Onset: 01-09-2022 11-10-2022 Episodic Other lower respiratory disease (5 sources) Dyspnea on exertion; Translations: [Other forms of dyspnea] Onset: 12-19-2021 11-10-2022 Episodic Other nervous system disorders (5 sources) Tingling of skin; Translations: [Paresthesia of skin] Onset: 08-13-2015 11-10-2022 Episodic Other nervous system disorders (5 sources) Trigeminal neuralgia; Translations: [Trigeminal neuralgia] Onset: 06-19-2015 11-10-2022 Episodic Other screening for suspected conditions (not mental disorders or infectious disease) (7 sources) Patient encounter status; Translations: [Encounter for screening mammogram for malignant neoplasm of breast] Onset: 11-22-2014 Episodic Phlebitis; thrombophlebitis and thromboembolism (20 sources) H/O: Deep vein thrombosis; Translations: [Personal history of other venous thrombosis and embolism] Onset: 09-14-2015 09-14-2015 Episodic Pulmonary heart disease (20 sources) Pulmonary embolism; Translations: [Other pulmonary embolism without acute cor pulmonale] Onset: 07-12-2013 04-08-2021 Episodic Residual codes; unclassified (5 sources) Delirium; Translations: [Disorientation, unspecified] Onset: 11-10-2022 11-10-2022 Episodic Residual codes; unclassified (5 sources) Unspecified problems with limbs and other problems; Translations: [Problem] Onset: 11-10-2022 11-10-2022 Episodic Syncope (5 sources) Syncope and collapse; Translations: [Syncope and collapse] Onset: 06-19-2015 11-10-2022 Episodic Urinary tract infections (5 sources) Urinary tract infectious disease; Translations: [Urinary tract infection, site not specified] Onset: 11-10-2022 11-10-2022 Episodic Results Test Name Value Interpretation Reference Range Facil ity Vital Signs Date Time Vital Sign Value Performing Clinician Diegoi lity 02-18-2023 07:29-0500 Body weight 101.15 kg Puja Jof BUSINESS MAIL ENTRY CLERK.MEDICAL ESTHETICIAN Work Phone: [facility] 02-18-2023 07:29-0500 Diastolic blood pressure 68 mm[Hg] Puja Griffinhof BUSINESS MAIL ENTRY CLERK.MEDICAL ESTHETICIAN Work Phone: [facility] 02-18-2023 07:29-0500 Heart rate 89 /min Puja Griffinhof BUSINESS MAIL ENTRY CLERK.MEDICAL ESTHETICIAN Work Phone: [facility] 02-18-2023 07:29-0500 Respiratory rate 16 /min Puja Griffinhof BUSINESS MAIL ENTRY CLERK.MEDICAL ESTHETICIAN Work Phone: [facility] 02-18-2023 07:29-0500 SaO2% (BldA) [Mass fraction] 94 % Puja Griffinhof BUSINESS MAIL ENTRY CLERK.MEDICAL ESTHETICIAN Work Phone: [facility] 02-18-2023 07:29-0500 Systolic blood pressure 130 mm[Hg] Puja Griffinhof BUSINESS MAIL ENTRY CLERK.MEDICAL ESTHETICIAN Work Phone: [facility] 11-17-2022 13:16-0400 Body height 157.5 cm Teree Rice BUSINESS MAIL ENTRY CLERK.MEDICAL ESTHETICIAN Work Phone: [facility] 11-17-2022 13:16-0400 Diastolic blood pressure 66 mm[Hg] Teree Rice BUSINESS MAIL ENTRY CLERK.MEDICAL ESTHETICIAN Work Phone: [facility] 11-17-2022 13:16-0400 SaO2% (BldA) [Mass fraction] 97 % Teree Rice BUSINESS MAIL ENTRY CLERK.MEDICAL ESTHETICIAN Work Phone: [facility] 11-17-2022 13:16-0400 Systolic blood pressure 137 mm[Hg] Teree Rice BUSINESS MAIL ENTRY CLERK.MEDICAL ESTHETICIAN Work Phone: [facility] 08-19-2022 09:01-0400 Diastolic blood pressure 80 mm[Hg] Edmundo Rodriguez MD Work Phone: [facility] 08-19-2022 09:01-0400 Heart rate 75 /min Edmundo Rodriguez MD Work Phone: [facility] 08-19-2022 09:01-0400 Respiratory rate 16 /min Edmundo Rodriguez MD Work Phone: [facility] 08-19-2022 09:01-0400 SaO2% (BldA) [Mass fraction] 98 % Edmundo Rodriguez MD Work Phone: [facility] 08-19-2022 09:01-0400 Systolic blood pressure 120 mm[Hg] Edmundo Rodriguez MD Work Phone: [facility] 04-02-2022 12:53-0500 Body temperature 100.2 [degF] Puja Tannhof BUSINESS MAIL ENTRY CLERK.MEDICAL ESTHETICIAN Work Phone: [facility] 04-02-2022 12:53-0500 Body weight 100.88 kg Puja Tannhof BUSINESS MAIL ENTRY CLERK.MEDICAL ESTHETICIAN Work Phone: [facility] 04-02-2022 12:53-0500 Diastolic blood pressure 70 mm[Hg] Puja Tannhof BUSINESS MAIL ENTRY CLERK.MEDICAL ESTHETICIAN Work Phone: [facility] 04-02-2022 12:53-0500 Heart rate 95 /min Puja Tannhof BUSINESS MAIL ENTRY CLERK.MEDICAL ESTHETICIAN Work Phone: [facility] 04-02-2022 12:53-0500 Respiratory rate 24 /min Puja Tannhof BUSINESS MAIL ENTRY CLERK.MEDICAL ESTHETICIAN Work Phone: [facility] 04-02-2022 12:53-0500 SaO2% (BldA) [Mass fraction] 94 % Puja Tannhof BUSINESS MAIL ENTRY CLERK.MEDICAL ESTHETICIAN Work Phone: [facility] 04-02-2022 12:53-0500 Systolic blood pressure 122 mm[Hg] Puja Griffinnoelle WHYTEMEDICAL ESTHETICIAN Work Phone: [facility] 10-22-2021 10:35-0400 Body height 157.5 cm Da Hobbs MD Work Phone: [facility] 10-22-2021 10:35-0400 Body weight 98.88 kg Da Hobbs MD Work Phone: [facility] 10-22-2021 10:35-0400 Diastolic blood pressure 65 mm[Hg] Da Hobbs MD Work Phone: [facility] 10-22-2021 10:35-0400 Heart rate 67 /min Da Hobbs MD Work Phone: [facility] 10-22-2021 10:35-0400 Respiratory rate 20 /min Da Hobbs MD Work Phone: [facility] 10-22-2021 10:35-0400 SaO2% (BldA) [Mass fraction] 99 % Da Hobbs MD Work Phone: [facility] 10-22-2021 10:35-0400 Systolic blood pressure 141 mm[Hg] Da Hobbs MD Work Phone: [facility] 08-09-2021 08:55-0400 Body weight 98.88 kg Edmundo Rodriguez MD Work Phone: [facility] 08-09-2021 08:55-0400 Diastolic blood pressure 74 mm[Hg] Edmundo Rodriguez MD Work Phone: [facility] 08-09-2021 08:55-0400 Heart rate 80 /min Edmundo Rodriguez MD Work Phone: [facility] 08-09-2021 08:55-0400 Respiratory rate 14 /min Edmundo Rodriguez MD Work Phone: [facility] 08-09-2021 08:55-0400 Systolic blood pressure 136 mm[Hg] Edmundo Rodriguez MD Work Phone: [facility] Encounters Encounter Date Encounter Type Care Provider Facility Start: 04-14-2023 Encounter for other preprocedural examination PUJA CASTILLO [facility] Start: 04-14-2023 End: 04-15-2023 ambulatory EDMUNDO RODRIGUEZ Facility:[facility] Start: 04-01-2023 End: 04-01-2023 ambulatory EDMUNDO RODRIGUEZ Facility:[facility] Start: 03-31-2023 End: 03-31-2023 ambulatory EJ RODRIGUEZ V Facility:[facility] Start: 03-30-2023 Orders Only Ej Taylor O Work Phone: Orthopaedics Procedures Date Procedure Procedure Detail Performing Clinician Start: 02-18-2023 INFLUENZA VACCINE, PRSV FREE, AGE 65+ YR, HIGH DOSE, QUADRIVALENT (FLUZONE HIGH-DOSE) Puja Castillo BUSINESS MAIL ENTRY CLERK.MEDICAL ESTHETICIAN Work Phone: Start: 11-10-2022 History of coronary artery bypass grafting S/P CABG x 2 Clara Christianson BUSINESS MAIL ENTRY CLERK.MEDICAL ESTHETICIAN Work Phone: Start: 08-27-2022 Lipid 1996 panel - Serum or Plasma Puja Castillo BUSINESS MAIL ENTRY CLERK.MEDICAL ESTHETICIAN Work Phone: Start: 08-29-2020 Ecg routine ecg w/least 12 lds i&r only Start: 04-12-2018 Adult depression screening assessment Edmundo Rodriguez MD Work Phone: Start: 12-05-2015 Colonoscopy Edmundo Rodriguez MD Work Phone: Start: 08-25-2014 Mammography Edmundo Rodriguez MD Work Phone: Start: 07-13-2011 H/O: surgery History of rectal polypectomy Edmundo Rodriguez MD Work Phone: Plan of Treatment Date Care Activity Detail Author Start: 08-28-2027 Lipid 1996 panel - S tito or Plasma Lipid Screening [facility] Start: 08-28-2027 Lipid panel Lipid Screening [facility] Start: 08-28-2027 LIPID SCREEN LIPID SCREEN [facility] Start: 07-29-2026 LIPID SCREEN LIPID SCREEN [facility] Start: 10-01-2025 LIPID SCREEN LIPID SCREEN [facility] Start: 08-27-2025 DIABETES SCREEN DIABETES SCREEN [facility] Start: 08-27-2025 Diabetes Screening Diabetes Screenin g [facility] Start: 07-29-2024 DIABETES SCREEN DIABETES SCREEN [facility] Start: 02-19-2024 Annual PCP Team Terrazzo Journeyman taurus Disease Visit Annual PCP Team Chronic Disease Visit [facility] Start: 02-19-2024 BP Controlled (<130/80) BP Controlle d (<130/80) [facility] Start: 02-19-2024 Covid-19 Vaccine () Covid-19 Vaccine () [facility] Immunizations Immunization Date Immunization Notes Care Provider Kenia cheung 02-18-2023 influenza (HD-IIV4) vaccine, age 65+ yr, high dose, quadrivalent, PF (FLUZONE HIGH-DOSE) Puja Castillo BUSINESS MAIL ENTRY CLERKINGRID Work Phone: [facility] 01-18-2022 influenza, high dose seasonal, preservative-free Edmundo Rodriguez MD Work Phone: [facility] 04-22-2021 COVID-19 vaccine, ag e 12+ yr (PFIZER-BIONTECH - PURPLE TOP) Edmundo Rodriguez MD Work Phone: [facility] 02-08-2021 influenza, high-dose , quadrivalent vaccine (FLUZONE HIGH DOSE QUADRIVALENT) Edmundo Rodriguez MD Work Phone: [facility] 10-04-2020 COVID-19 vaccine, ag e 12+ yr (PFIZER-BIONTECH - PURPLE TOP) Edmundo Rodriguez MD Work Phone: [facility] 09-13-2020 COVID-19 vaccine, ag e 12+ yr (PFIZER-BIONTECH - PURPLE TOP) Edmundo Rodriguez MD Work Phone: [facility] 01-10-2020 influenza, high-dose , quadrivalent vaccine (FLUZONE HIGH DOSE QUADRIVALENT) Edmundo Rodriguez MD Work Phone: [facility] 01-15-2018 influenza, high dose seasonal, preservative-free Edmundo Rodriguez MD Work Phone: [facility] Work Phone: 01-12-2017 influenza, high dose seasonal, preservative-free Edmundo Rodriguez MD Work Phone: [facility] 05-12-2016 pneumococcal polysaccharide vaccine, 23 valent Edmundo Rodriguez MD Work Phone: [facility] 02-02-2016 influenza, high dose seasonal, preservative-free Edmundo Rodriguez MD Work Phone: [facility] Work Phone: 01-13-2015 influenza, high dose seasonal, preservative-free Edmundo Rodriguez MD Work Phone: [facility] 09-12-2014 pneumococcal conjuga te vaccine, 13 valent Edmundo Rodriguez MD Work Phone: [facility] 01-25-2014 influenza, seasonal, injectable Edmundo Rodriguez MD Work Phone: [facility] 02-08-2013 influenza virus vacc ine, unspecified formulation Edmundo Rodriguez MD Work Phone: [facility] Work Phone: Payers Date Payer Category Payer Medicare [employer] MEDICARE THP [facility] [id number] 2014-Present [phone] [place] [address] [facility] [place] [id number] 2014 Medicare [employer] MEDICARE [facility] [place] [id number] 2014-Present [phone] [place] [address] [facility] [place] [id number] 2014 Unknown [id number] Social History Date Type Detail Facility Start: 08-15-2014 End: 02-13-2022 Tobacco smoking status AKIS Ex-smoker [facility] History of tobacco use Cigarette Smoker [facility] Start: 02-08-2021 End: 02-18-2023 Alcohol intake Current non-drinker of alcohol (finding) [facility] Start: 1950 Sex Assigned At Not on file [facility] Start: 09-30-2021 End: 02-13-2022 Exposure to SARS-CoV-2 (event) Not sure [facility] History of tobacco use Current smoker [facility] Start: 08-15-2014 End: 08-19-2022 Cigarettes smoked current (pack per day) - Reported 1 [facility] Work Phone: Start: 08-15-2014 End: 02-13-2022 Tobacco use and exposure Smokeless tobacco non-user [facility] Start: 08-19-2022 End: 11-17-2022 Tobacco use panel [facility] Work Phone: Adult Depression Screening Assessment 0 [facility] Work Phone: Clinical Notes 08-30-2020 to 04-14-2023 Patient Puja Badillo APRN.QUINTON - 02/18/2023 7:40 AM ESTTelephone Encounter - Dana Castillo - 11/18/2022 9:31 AM EDTPatient Clara Mooney APRN.CNP - 11/17/2022 1:30 PM EDT Note Date & Type Note Facility 04-14-2023 Note HNO ID: [id number] Author: Puja Castillo APRN.MEDICAL ESTHETICIAN Service: ? Author Type: Nurse Practitioner Type: Progress Notes Filed: 04/14/2023 11:32 AM Note Text: This is a 72 year old female who presents today with: Patient presents with: Pre-Op Exam HISTORY OF PRESENT ILLNESS: Jenni Albright is a 72 year old female. Patient presents with: Pre-Op Exam Here in the office for preop clearance. Will be having PIPJ fusion 2nd/3rd digits on right foot with Dr. Franco ([facility] [place]). Not scheduled yet, Pain in the foot with activity and pressure. HTN/CHF: Follows with Cardio Dr. Hobbs. Denies any chest pains, dizziness, or SOB. Does not check BP at home. Currently taking Coreg 25 mg half pill BID, Losartan 50 mg daily, and Aldactone 25 mg daily. Has a pacemaker. PE AND DVT: Is on Eliquis 5 mg BID. Will need to be off for 1 week prior to surgery. CAD/Lipid/Glucose: Taking Tricor 145 mg daily and Pravastatin 20 mg daily. Does not watch diet or exercise. MS: Taking Tecfidera 240 mg BID, Gabapentin 800 mg QID and Vumerity 231 mg 1 pill BID. No longer on Rebif injections weekly. Follows with Neuro Dr. Clemente. REBECCA: Using CPAP nightly. Follows with [facility]. Gets supplies through [facility]. 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 11/19/2015 CAD (coronary artery disease) 07/2013 non-STMI/CABG GERD (gastroesophageal reflux disease) hiatal hernia History of DVT (deep vein thrombosis) 09/14/2015 History of rectal polypectomy 07/2011 Hyperlipidemia Hypertension Iron deficiency anemia Multiple sclerosis (HCC) Neuropathic pain Legs>arms from MS REBECCA (obstructive sleep apnea) on CPAP Pacemaker Pulmonary embolism (HCC) 07/2013 during hospitalization for [place] Vitamin D deficiency PAST SURGICAL HISTORY Procedure Laterality Date CABG, ARTERIAL, TWO 07/22/13 THURMAN to LAD and Dx CARPAL TUNNEL CATARACT EXTRACTION HX Right 03/23/2017 Dr. Das - [place] CATARACT EXTRACTION HX Left 04/16/2017 Dr. Das COLONOSCOPY 08/01/2011 5mm rectal polyp COLONOSCOPY 12/05/2015 rectal polyp (adenoma) and diverticulosis EGD 07/17/2011 sliding hiatal hernia ENDOSCOPY PROC 11/19/15 Dr. Lema- HEART CATHETERIZATION ?1980s HYSTERECTOMY HX 1982 PACEMAKER ROTATOR CUFF REPAIR right ALLERGIES Glatiramer MEDICATIONS Current Outpatient Medications Medication Sig DULoxetine (CYMBALTA) 30 mg capsule take 1 capsule by mouth every day in the evening DULoxetine (CYMBALTA) 60 mg capsule pravastatin (PRAVACHOL) 40 mg tablet Take 1 tablet by mouth daily at bedtime. losartan (COZAAR) 50 mg tablet Take 1 tablet by mouth once daily. spironolactone (ALDACTONE) 25 mg tablet Take 1 tablet by mouth once daily. apixaban (ELIQUIS) 5 mg tab(s) Take 1 tablet by mouth twice daily. carvedilol (COREG) 25 mg tablet Take 0.5 tablets by mouth twice daily. magnesium oxide (MAGOX) 400 mg (241.3 mg magnesium) tablet Take 1 tablet by mouth twice daily. esomeprazole (NEXIUM) 40 mg capsule Take 1 capsule by mouth daily before breakfast. 1/2 hr before meal. fenofibrate nanocrystallized (TRICOR) 145 mg tablet Take 1 tablet by mouth once daily. VUMERITY 231 mg capsule, delayed release Twice daily-Dr. Clemente dimethyl fumarate (TECFIDERA) [address] Take 1 capsule by mouth twice daily. SYMBICORT 160-4.5 mcg/actuation inhaler Inhale 2 Puffs as instructed twice daily as needed. gabapentin (NEURONTIN) 800 mg tablet Take 1 tablet by mouth four times daily. ALBUTEROL SULFATE HFA INHALATION Inhale as instructed. baclofen (LIORESAL) 20 mg tablet Take by mouth three times daily as needed. 1 in am, 1in afternoon and 2 at bedtime COMPOUNDED PRESCRIPTION One pair of shoes to fit over leg brace. Dx: G35; M79.2 nitroglycerin sublingual (NITROQUICK) 0.4 mg SL tablet Dissolve 1 tablet under the tongue every 5 minutes as needed for Chest Pain. multivitamin (MULTIPLE VITAMINS) tablet Take 1 tablet by mouth once daily. aspirin, enteric coated (ASPIRIN, ENTERIC COATED) 81 mg EC tablet Take 81 mg by mouth once daily. ferrous sulfate 325 mg (65 mg iron) tablet Take 325 mg by mouth daily with breakfast. No current facility-administered medications for this visit. FAMILY HISTORY Problem Relation Age of Onset Cancer Father Diabetes Mother Coronary Artery Disease Mother MA's Coronary Artery Disease Brother 2 brothers CABG Aneurysm Brother Heart Sister MA's, valve replaced Stroke Sister Ovarian cancer Sister Multiple Sclerosis Sister Hypertension Sister Social History Tobacco Use Smoking status: Former Packs/day: 1.00 Years: 20.00 Additional pack years: 0.00 Total pack years: 20.00 Types: Cigarettes Smokeless tobacco: Never Vaping Use Vaping Use: Never used Substance Use Topics Alcohol use: No Drug use: No REVIEW OF SYSTEMS GENERAL: No weight loss, malaise or fevers/chi (more content not included)... [facility] 04-01-2023 Note HNO ID: [id number] Author: Ej Rodriguez V DO Service: ? Author Type: Physician Type: Progress Notes Filed: 04/01/2023 2:47 PM Note Text: SERVICE DATE: April 01, 2023 PCP: Edmundo Rodriguez MD Subjective Patient ID: Jenni is a 72 year old female. Chief Complaint: Patient presents with: Left shoulder pain PAIN EVALUATION 04/01/2023 1359 Pain Level: 8 Pain Location: Shoulder-Left Description: Sharp Duration Amount of Time: 1 Duration Units: Months Frequency: Continuous Intervention/Comfort measure: Medication HPI Patient states that she started having left shoulder pain about 3 to 4 weeks ago. First noticed it when she was at her grandson's basketball game she was clapping and felt sharp pain in the left shoulder. She states that it has been present ever since. She has difficulty with range of motion activities of daily living. She has multiple chronic conditions including having and cardio vascular conditions for which she is treated. She states that she not interested in surgical options at this time due to those conditions. TREATMENTS PRIOR TO INITIAL CONSULT: Review of Systems ACTIVE PROBLEM LIST Multiple Sclerosis (Hcc) Neuropathic Pain Hyperlipidemia Gerd (Gastroesophageal Reflux Disease) Vitamin D Deficiency Back Pain Rebecca (Obstructive Sleep Apnea) Iron Deficiency Anemia History of Rectal Polypectomy Cad (Coronary Artery Disease) Pulmonary Embolism (Hcc) Essential Hypertension Cardiac Pacemaker History of Dvt (Deep Vein Thrombosis) Positive Occult Stool Blood Test Spastic Hemiplegia, Unspecified Etiology, Unspecified Laterality ([facility]) Morbid Obesity ([facility]) Congestive Heart Failure, Unspecified Hf Chronicity, Unspecified Heart Failure Type ([facility]) Paf (Paroxysmal Atrial Fibrillation) ([facility]) Abnormal Result of Other Cardiovascular Function Study Biventricular Implantable Cardioverter-Defibrillator (Icd) in Situ Calf Pain Cervico-Occipital Neuralgia Fpc Current Use of Anticoagulant Therapy Delirium Dysphagia Dyspnea On Exertion Fatigue Hereditary Peripheral Neuropathy Idiopathic Peripheral Neuropathy Irritable Bowel Syndrome Neuralgia Neurogenic Bladder Pain in Both Lower Legs Paresis of Single Lower Extremity ([facility]) Personal History of Pulmonary Embolism Problem S/P Cabg X 2 Spinal Stenosis of Lumbar Region Syncope and Collapse Tingling of Skin Transient Ischemic Attack Trigeminal Neuralgia Urinary Tract Infection Retention of Urine Obesity, Class III, BMI >= 40 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 11/19/2015 CAD (coronary artery disease) 07/2013 non-STMI/CABG GERD (gastroesophageal reflux disease) hiatal hernia History of DVT (deep vein thrombosis) 09/14/2015 History of rectal polypectomy 07/2011 Hyperlipidemia Hypertension Iron deficiency anemia Multiple sclerosis (HCC) Neuropathic pain Legs>arms from MS REBECCA (obstructive sleep apnea) on CPAP Pacemaker Pulmonary embolism (HCC) 07/2013 during hospitalization for MA Vitamin D deficiency PAST SURGICAL HISTORY Procedure Laterality Date CABG, ARTERIAL, TWO 07/22/13 THURMAN to LAD and Dx CARPAL TUNNEL CATARACT EXTRACTION HX Right 03/23/2017 Dr. Das - [place] CATARACT EXTRACTION HX Left 04/16/2017 Dr. Das COLONOSCOPY 08/01/2011 5mm rectal polyp COLONOSCOPY 12/05/2015 rectal polyp (adenoma) and diverticulosis EGD 07/17/2011 sliding hiatal hernia ENDOSCOPY PROC 11/19/15 Dr. Lema- HEART CATHETERIZATION ? HYSTERECTOMY HX 1982 PACEMAKER ROTATOR CUFF REPAIR right FAMILY HISTORY Problem Relation Age of Onset Cancer Father Diabetes Mother Coronary Artery Disease Mother MA's Coronary Artery Disease Brother 2 brothers CABG Aneurysm Brother Heart Sister MA's, valve replaced Stroke Sister Ovarian cancer Sister Multiple Sclerosis Sister Hypertension Sister Social History Tobacco Use Smoking status: Former Packs/day: 1.00 Years: 20.00 Additional pack years: 0.00 Total pack years: 20.00 Types: Cigarettes Smokeless tobacco: Never Vaping Use Vaping Use: Never used Substance Use Topics Alcohol use: No Drug use: No ALLERGIES Allergen Reactions Glatiramer Itching, Rash MEDICATIONS: DULoxetine (CYMBALTA) 30 mg capsule take 1 capsule by mouth every day in the evening DULoxetine (CYMBALTA) 60 mg capsule pravastatin (PRAVACHOL) 40 mg tablet Take 1 tablet by mouth daily at bedtime. losartan (COZAAR) 50 mg tablet Take 1 tablet by mouth once daily. spironolactone (ALDACTONE) 25 mg tablet Take 1 tablet by mouth once daily. apixaban (ELIQUIS) 5 mg tab(s) Take 1 tablet by mouth twice daily. carvedilol (COREG) 25 mg tablet Take 0.5 tablets by mouth twice daily. magnesium oxide (MAGOX) 400 mg (241.3 mg magnesium) tablet Take 1 tablet by mouth twice daily. esomeprazole (NEXIUM) 40 mg capsule Take 1 ca (more content not included)... [facility] 04-01-2023 Note HNO ID: [id number] Author: Eula Cedeño Ma Service: ? Author Type: ? Type: Progress Notes Filed: 04/01/2023 2:47 PM Note Text: Patient presents with: Left shoulder pain AMB ROOMING INTAKE FLOWSHEET DATA Pain Pain Level: 8 Pain Location: Shoulder-Left Description: Sharp Duration Amount of Time: 1 Duration Units: Months Frequency: Continuous Intervention/Comfort measure: Medication Patient states her pain started about a month ago and increased when she clapping at a basketball game. Taking Tylenol for the pain does not help. She is also on Baclofen and does not help. X-rays done yesterday. [facility] 03-31-2023 Note HNO ID: [id number] Author: Alycia Diaz RT(R) Service: ? Author Type: Final Inspector Movement Assembly Type: Progress Notes Filed: 03/31/2023 10:24 AM Note Text: Radiology Service Progress Note PATIENT NAME: Jneni Albright DATE OF SERVICE: March 31, 2023 TIME: 10:04 AM PATIENT IDENTITY VERIFICATION COMPLETED USING TWO (2) IDENTIFIERS: Name and Date of confirmed by patient verbally. FALL SCREENING: Has the patient had 2 falls in the last year or 1 fall with injury or currently using an Ambulatory Assistive Device (Walker, Cane, Wheelchair, Crutches, etc.)? Yes, Patient High Risk for Falls What interventions were put in place to prevent falls during this visit? Offered Assistance with Transfers/Clothing, Instructed Patient to Remain Seated (Not on Exam Table) Until Exam, and Increased Observations by Caregivers PATIENT GENDER DATA: Female. status: : No status: NO. PATIENT RELEVANT IMPLANT DATA REVIEWED: Yes RADIOLOGY DEPARTMENT: General X-ray: Exam(s) Completed: Upper Extremity X-Ray(s): Shoulder, AP / TRUE AP / AXILLARY left PERIPHERAL IV DATA: Not applicable SIGNED BY: RT Heber(R) March 31, 2023 10:04 AM [facility] 02-18-2023 Note HNO ID: [id number] Author: Puja Castillo APRN.MEDICAL ESTHETICIAN Service: ? Author Type: Nurse Practitioner Type: Progress Notes Filed: 02/18/2023 8:05 AM Note Text: This is a 72 year old female who presents today with: Patient presents with: 6 Month Exam HISTORY OF PRESENT ILLNESS: Jenni Albright is a 72 year old female. Patient presents with: 6 Month Exam 6 month follow up Here with , Tejas and daughter, Lillian. No bowel, Gi, or urinary issues. GERD: Sx controlled on Nexium 40 mg daily. HTN/CHF: Follows with Cardio Dr. Hobbs. Denies any chest pains, dizziness, or SOB. Does not check BP at home. Currently taking Coreg 25 mg half pill BID, Losartan 50 mg daily, and Aldactone 25 mg daily. Has a pacemaker. PE AND DVT: Is on Eliquis 5 mg BID. CAD/Lipid/Glucose: Taking Tricor 145 mg daily and Pravastatin 20 mg daily. Does not watch diet or exercise. MS: Taking Tecfidera 240 mg BID, Gabapentin 800 mg QID and Vumerity 231 mg 1 pill BID. No longer on Rebif injections weekly. Follows with Neuro Dr. Clemente. REBECCA: Using CPAP nightly. Follows with Raven Begrer. Gets supplies through [facility] [employer]. HM - Declines Mammogram due to having pacemaker. Has Adv Dir/Living Will. Declines Colon cancer screening. Declines Shingrix vaccine. 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 11/19/2015 CAD (coronary artery disease) 07/2013 non-STMI/CABG GERD (gastroesophageal reflux disease) hiatal hernia History of DVT (deep vein thrombosis) 09/14/2015 History of rectal polypectomy 07/2011 Hyperlipidemia Hypertension Iron deficiency anemia Multiple sclerosis (HCC) Neuropathic pain Legs>arms from MS REBECCA (obstructive sleep apnea) on CPAP Pacemaker Pulmonary embolism (HCC) 07/2013 during hospitalization for MA Vitamin D deficiency PAST SURGICAL HISTORY Procedure Laterality Date CABG, ARTERIAL, TWO 07/22/13 THURMAN to LAD and Dx CARPAL TUNNEL CATARACT EXTRACTION HX Right 03/23/2017 Dr. Das - [place] CATARACT EXTRACTION HX Left 04/16/2017 Dr. Das COLONOSCOPY 08/01/2011 5mm rectal polyp COLONOSCOPY 12/05/2015 rectal polyp (adenoma) and diverticulosis EGD 07/17/2011 sliding hiatal hernia ENDOSCOPY PROC 11/19/15 Dr. Lema- HEART CATHETERIZATION ?1980s HYSTERECTOMY HX 1982 PACEMAKER ROTATOR CUFF REPAIR right ALLERGIES Glatiramer MEDICATIONS Current Outpatient Medications Medication Sig DULoxetine (CYMBALTA) 30 mg capsule take 1 capsule by mouth every day in the evening DULoxetine (CYMBALTA) 60 mg capsule pravastatin (PRAVACHOL) 40 mg tablet Take 1 tablet by mouth daily at bedtime. losartan (COZAAR) 50 mg tablet Take 1 tablet by mouth once daily. spironolactone (ALDACTONE) 25 mg tablet Take 1 tablet by mouth once daily. apixaban (ELIQUIS) 5 mg tab(s) Take 1 tablet by mouth twice daily. carvedilol (COREG) 25 mg tablet Take 0.5 tablets by mouth twice daily. magnesium oxide (MAGOX) 400 mg (241.3 mg magnesium) tablet Take 1 tablet by mouth twice daily. esomeprazole (NEXIUM) 40 mg capsule Take 1 capsule by mouth daily before breakfast. 1/2 hr before meal. fenofibrate nanocrystallized (TRICOR) 145 mg tablet Take 1 tablet by mouth once daily. VUMERITY 231 mg capsule, delayed release Twice daily-Dr. Clemente dimethyl fumarate (TECFIDERA) [address] Take 1 capsule by mouth twice daily. SYMBICORT 160-4.5 mcg/actuation inhaler Inhale 2 Puffs as instructed twice daily as needed. gabapentin (NEURONTIN) 800 mg tablet Take 1 tablet by mouth four times daily. ALBUTEROL SULFATE HFA INHALATION Inhale as instructed. baclofen (LIORESAL) 20 mg tablet Take by mouth three times daily as needed. 1 in am, 1in afternoon and 2 at bedtime COMPOUNDED PRESCRIPTION One pair of shoes to fit over leg brace. Dx: G35; M79.2 nitroglycerin sublingual (NITROQUICK) 0.4 mg SL tablet Dissolve 1 tablet under the tongue every 5 minutes as needed for Chest Pain. multivitamin (MULTIPLE VITAMINS) tablet Take 1 tablet by mouth once daily. aspirin, enteric coated (ASPIRIN, ENTERIC COATED) 81 mg EC tablet Take 81 mg by mouth once daily. ferrous sulfate 325 mg (65 mg iron) tablet Take 325 mg by mouth daily with breakfast. No current facility-administered medications for this visit. FAMILY HISTORY Problem Relation Age of Onset Cancer Father Diabetes Mother Coronary Artery Disease Mother MA's Coronary Artery Disease Brother 2 brothers CABG Aneurysm Brother Heart Sister MA's, valve replaced Stroke Sister Ovarian cancer Sister Multiple Sclerosis Sister Hypertension Sister Social History Tobacco Use Smoking status: Former Packs/day: 1.00 Years: 20.00 Additional pack years: 0.00 Total pack years: 20.00 Types: Cigarettes Smokeless tobacco: Never Vaping Use Vaping Use: Never used Substance Use Topics Alcohol use: No Drug use: No REVIEW OF SYSTEMS GENERAL: No we (more content not included)... [facility] 02-18-2023 Instructions Puja Castillo APRN.CNP - 02/18/2023 7:46 AM EST Get fasting labs in 6 months, water or black coffee only Continue appointments with specialists Continue to try to eat a well balanced diet, get physical activity Use Debrox ear drops to try to loosen ear wax Flu vaccine provided Follow up in 6 months or sooner as needed. documented in this encounter [facility] 02-18-2023 History of Presen t illness Narrative This is a 72 year old female who presents today with: Patient presents with: 6 Month Exam HISTORY OF PRESENT ILLNESS: Jenni Albright is a 72 year old female. Patient presents with: 6 Month Exam 6 month follow up Here with , Tejas and daughter, Lillian. No bowel, Gi, or urinary issues. GERD: Sx controlled on Nexium 40 mg daily. HTN/CHF: Follows with Cardio Dr. Hobbs. Denies any chest pains, dizziness, or SOB. Does not check BP at home. Currently taking Coreg 25 mg half pill BID, Losartan 50 mg daily, and Aldactone 25 mg daily. Has a pacemaker. PE & DVT: Is on Eliquis 5 mg BID. CAD/Lipid/Glucose: Taking Tricor 145 mg daily and Pravastatin 20 mg daily. Does not watch diet or exercise. MS: Taking Tecfidera 240 mg BID, Gabapentin 800 mg QID and Vumerity 231 mg 1 pill BID. No longer on Rebif injections weekly. Follows with Neuro Dr. Clemente. REBECCA: Using CPAP nightly. Follows with Raven Berger. Gets supplies through [facility] [employer]. HM - Declines Mammogram due to having pacemaker. Has Adv Dir/Living Will. Declines Colon cancer screening. Declines Shingrix vaccine. 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 11/19/2015 CAD (coronary artery disease) 07/2013 non-STMI/CABG GERD (gastroesophageal reflux disease) hiatal hernia History of DVT (deep vein thrombosis) 09/14/2015 History of rectal polypectomy 07/2011 Hyperlipidemia Hypertension Iron deficiency anemia Multiple sclerosis (HCC) Neuropathic pain Legs>arms from MS REBECCA (obstructive sleep apnea) on CPAP Pacemaker Pulmonary embolism (HCC) 07/2013 during hospitalization for MA Vitamin D deficiency PAST SURGICAL HISTORY Procedure Laterality Date CABG, ARTERIAL, TWO 07/22/13 THURMAN to LAD and Dx CARPAL TUNNEL CATARACT EXTRACTION HX Right 03/23/2017 Dr. Das - [place] CATARACT EXTRACTION HX Left 04/16/2017 Dr. Das COLONOSCOPY 08/01/2011 5mm rectal polyp COLONOSCOPY 12/05/2015 rectal polyp (adenoma) and diverticulosis EGD 07/17/2011 sliding hiatal hernia ENDOSCOPY PROC 11/19/15 Dr. Lema- HEART CATHETERIZATION ?1980s HYSTERECTOMY HX 1982 PACEMAKER ROTATOR CUFF REPAIR right ALLERGIES Glatiramer MEDICATIONS Current Outpatient Medications Medication Sig DULoxetine (CYMBALTA) 30 mg capsule take 1 capsule by mouth every day in the evening DULoxetine (CYMBALTA) 60 mg capsule pravastatin (PRAVACHOL) 40 mg tablet Take 1 tablet by mouth daily at bedtime. losartan (COZAAR) 50 mg tablet Take 1 tablet by mouth once daily. spironolactone (ALDACTONE) 25 mg tablet Take 1 tablet by mouth once daily. apixaban (ELIQUIS) 5 mg tab(s) Take 1 tablet by mouth twice daily. carvedilol (COREG) 25 mg tablet Take 0.5 tablets by mouth twice daily. magnesium oxide (MAGOX) 400 mg (241.3 mg magnesium) tablet Take 1 tablet by mouth twice daily. esomeprazole (NEXIUM) 40 mg capsule Take 1 capsule by mouth daily before breakfast. 1/2 hr before meal. fenofibrate nanocrystallized (TRICOR) 145 mg tablet Take 1 tablet by mouth once daily. VUMERITY 231 mg capsule, delayed release Twice daily-Dr. Clemente dimethyl fumarate (TECFIDERA) [address] Take 1 capsule by mouth twice daily. SYMBICORT 160-4.5 mcg/actuation inhaler Inhale 2 Puffs as instructed twice daily as needed. gabapentin (NEURONTIN) 800 mg tablet Take 1 tablet by mouth four times daily. ALBUTEROL SULFATE HFA INHALATION Inhale as instructed. baclofen (LIORESAL) 20 mg tablet Take by mouth three times daily as needed. 1 in am, 1in afternoon and 2 at bedtime COMPOUNDED PRESCRIPTION One pair of shoes to fit over leg brace. Dx: G35; M79.2 nitroglycerin sublingual (NITROQUICK) 0.4 mg SL tablet Dissolve 1 tablet under the tongue every 5 minutes as needed for Chest Pain. multivitamin (MULTIPLE VITAMINS) tablet Take 1 tablet by mouth once daily. aspirin, enteric coated (ASPIRIN, ENTERIC COATED) 81 mg EC tablet Take 81 mg by mouth once daily. ferrous sulfate 325 mg (65 mg iron) tablet Take 325 mg by mouth daily with breakfast. No current facility-administered medications for this visit. FAMILY HISTORY Problem Relation Age of Onset Cancer Father Diabetes Mother Coronary Artery Disease Mother MA's Coronary Artery Disease Brother 2 brothers CABG Aneurysm Brother Heart Sister MA's, valve replaced Stroke Sister Ovarian cancer Sister Multiple Sclerosis Sister Hypertension Sister Social History Tobacco Use Smoking status: Former Packs/day: 1.00 Years: 20.00 Additional pack years: 0.00 Total pack years: 20.00 Types: Cigarettes Smokeless tobacco: Never Vaping Use Vaping Use: Never used Substance Use Topics Alcohol use: No Drug use: No REVIEW OF SYSTEMS GENERAL: No weight loss, malaise or fevers/chills HEENT: Negative for frequent or significant headaches, No changes in hearing or vision. NECK: Negative for lumps, goiter, pain and significant neck swelling RESPIRATORY: Negative for cough, hemoptysis, wheezing, dyspnea or shortness of breath CARDIOVASCULAR: Negative for chest pain, leg swelling, orthopnea, or palpitations GI: No nausea, vomiting, or diarrhea/constipation. No hematochezia/melena. No heartburn or reflux symptoms. : No history of dysuria, frequency or incontinence MUSCULOSKELETAL: Negative for joint pain or swelling. SKIN: Negative for lesions, rash, and itching ENDOCRINE: Negative for cold or heat intolerance, polyuria, polydipsia and goiter NEURO: No history of headaches, syncope, paralysis, seizures or tremors MOOD: Negative for depression, anxiety, or suicidal ideation. EXAM: BP 130/68 Pulse 89 Resp 16 Wt 101.2 kg (223 lb) SpO2 94% BMI 40.79 kg/m PHYSICAL EXAM: General Appearance: Well appearing, alert, in no acute distress, well-hydrated, well nourished. Skin: Skin color, texture, turgor normal, no suspicious rashes or lesions. Head: Normocephalic, no masses, lesions, tenderness or abnormalities. Eyes: Anicteric sclera. Extraocular movements are intact. Ears: External ears normal, canals clear. Cerumen noted in the left ear, TMs pearly herrera. Lungs: Lungs clear to auscultation. No wheezing, rhonchi, rales. Heart: RRR without murmur, gallop, or rubs. No ectopy. Abdomen: Normal abdominal exam, Abdomen soft, non-tender. Bowel sounds normal. No masses, organomegaly. Extremities: No deformities, edema, skin discoloration, clubbing or cyanosis. Good capillary refill. Musculoskeletal: No joint swelling, deformity, or tenderness. Neurologic: Gait normal. Reflexes normal and symmetric. Sensation grossly intact. ASSESSMENT/PLAN: 1. Essential hypertension - ICD9: 401.9, ICD10: I10 (primary diagnosis) - Controlled - Continue current medications - Recommend home blood pressure monitoring, to bring results to next visit - Encouraged sodium restriction, DASH or Mediterranean diet - Recommend regular aerobic exercise - COMP METABOLIC PANEL 2. Coronary artery disease involving [place] coronary artery of [place] heart without angina pectoris - ICD9: 414.01, ICD10: I25.10 - Stable, follows with quality assurance 3. Congestive heart failure, unspecified HF chronicity, unspecified heart failure type (HCC) - ICD9: 428.0, ICD10: I50.9 - Stable, continue to take medications - Keep appointment with specialist 4. History of DVT (deep vein thrombosis) - ICD9: V12.51, ICD10: Z86.718 - Stable, continue to take current medications 5. Hyperlipidemia, unspecified hyperlipidemia type - ICD9: 272.4, ICD10: E78.5 - Controlled - Continue current medications - Counseled on healthy diet and regular exercise - LIPID PANEL BASIC 6. Multiple sclerosis (HCC) - ICD9: 340, ICD10: G35 - Stable, continue to take medications - Keep appointment with specialist 7. REBECCA (obstructive sleep apnea) - ICD9: 327.23, ICD10: G47.33 - Stable 8. Encounter for immunization - ICD9: V03.89, ICD10: Z23 - VIS Provided - INFLUENZA VACCINE, PRSV FREE, AGE 65+ YR, HIGH DOSE, QUADRIVALENT (FLUZONE HIGH-DOSE) 9. Elevated glucose - ICD9: 790.29, ICD10: R73.09 - Stable - HGB A1C 10. Impacted cerumen of left ear - ICD9: 380.4, ICD10: H61.22 - May use OTC Debrox drops into the left ear to help soften cerumen. - May follow-up in the office for ear lavage. Discussed treatment plan and patient voices understanding. Patient's questions answered appropriately. Medications and potential side effects were discussed and patient voices understanding. Puja Castillo APRN.MEDICAL ESTHETICIAN This note was partially generated using ESTmob voice recognition system. Note was reviewed for accuracy. There may be minor misspellings or grammar miscues with [employer]mob voice recognition. documented in this encounter [facility] 11-18-2022 Miscellaneous Notes Summary: Device While patient was in yesterday, she was complaining of a sharp pain around her device that only last a few minutes. This only happens when she is siting. Device check showed device normal lead threshold and impendence. Discussed with Madalyn Goldstein and she does not believe this is device related. Patient is to follow up with PCP. Patient informed of above. [facility] [facility] 11-17-2022 Note HNO ID: [id number] Author: Clara Christianson APRN.CNP Service: ? Author Type: Nurse Practitioner Type: Progress Notes Filed: 11/17/2022 4:10 PM Note Text: Summary: 1 year cardiology follow-up [facility] [place] OUTPATIENT VISIT DATE November 17, 2022 OUTPATIENT VISIT TYPE ESTABLISHED PATIENT PRIMARY CARE PHYSICIAN: Edmundo Rodriguez [address] [place] [address] HISTORY OF PRESENT ILLNESS: Ms. Albright is a 71 year old female with a history of coronary artery disease, status post CABG 07/22/13, hypertension, hypercholesterolemia, paroxysmal atrial fibrillation, Biventricualr dual chamber pacemaker implant for CHB on 09/06/15, history of multiple sclerosis , GI bleed on Xarelto on August 2015, History of bladder stimulator implant. Patient returns for follow-up with her Tejas. Patient states lab work is obtained by her PCP in [place]. Patient states she is at her baseline of shortness of breath, denies palpitations, lightheaded dizziness syncope or falls. Patient is in a wheeled walker. Patient has multiple sclerosis and has a brace on her right foot. Patient is on Eliquis and denies bleeding issues. Patient does not smoke and will have a rare alcoholic beverage at the holidays. Patient wears her CPAP nightly. Patient is describing sharp chest pain over her pacemaker site in the upper left shoulder lasting 2 minutes in duration for the last several months. Patient says she rubs it and help soothe it. This only occurs at night when she is sitting in her recliner. Patient's device check shows 2 and half years until AMMON and no acute changes. Device clinic discussed sharp pains in her findings and decided it did not seem to be device related. Device clinic was going to relayed that message to the patient PAST CARDIAC HISTORY: STEMI CABG Hypertension Hyperlipidemia Bi V dual-chamber pacemaker 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 11/19/2015 CAD (coronary artery disease) 07/2013 non-STMI/CABG GERD (gastroesophageal reflux disease) hiatal hernia History of DVT (deep vein thrombosis) 09/14/2015 History of rectal polypectomy 07/2011 Hyperlipidemia Hypertension Iron deficiency anemia Multiple sclerosis (HCC) Neuropathic pain Legs>arms from MS REBECCA (obstructive sleep apnea) on CPAP Pacemaker Pulmonary embolism (HCC) 07/2013 during hospitalization for MA Vitamin D deficiency PAST SURGICAL HISTORY Procedure Laterality Date CABG, ARTERIAL, TWO 07/22/13 THURMAN to LAD and Dx CARPAL TUNNEL CATARACT EXTRACTION HX Right 03/23/2017 Dr. Das - [place] CATARACT EXTRACTION HX Left 04/16/2017 Dr. Das COLONOSCOPY 08/01/2011 5mm rectal polyp COLONOSCOPY 12/05/2015 rectal polyp (adenoma) and diverticulosis EGD 07/17/2011 sliding hiatal hernia ENDOSCOPY PROC 11/19/15 Dr. Lema- HEART CATHETERIZATION ?1980s HYSTERECTOMY HX 1982 PACEMAKER ROTATOR CUFF REPAIR right SOCIAL HISTORY Social History Tobacco Use Smoking status: Former Packs/day: 1.00 Years: 20.00 Total pack years: 20.00 Types: Cigarettes Smokeless tobacco: Never Vaping Use Vaping Use: Never used Substance Use Topics Alcohol use: No Drug use: No FAMILY HISTORY Problem Relation Age of Onset Cancer Father Diabetes Mother Coronary Artery Disease Mother MA's Coronary Artery Disease Brother 2 brothers CABG Aneurysm Brother Heart Sister MA's, valve replaced Stroke Sister Ovarian cancer Sister Multiple Sclerosis Sister Hypertension Sister ALLERGIES Allergen Reactions Glatiramer Itching, Rash MEDICATIONS: DULoxetine (CYMBALTA) 30 mg capsule take 1 capsule by mouth every day in the evening DULoxetine (CYMBALTA) 60 mg capsule pravastatin (PRAVACHOL) 40 mg tablet Take 1 tablet by mouth daily at bedtime. losartan (COZAAR) 50 mg tablet Take 1 tablet by mouth once daily. spironolactone (ALDACTONE) 25 mg tablet Take 1 tablet by mouth once daily. apixaban (ELIQUIS) 5 mg tab(s) Take 1 tablet by mouth twice daily. carvedilol (COREG) 25 mg tablet Take 0.5 tablets by mouth twice daily. magnesium oxide (MAGOX) 400 mg (241.3 mg magnesium) tablet Take 1 tablet by mouth twice daily. esomeprazole (NEXIUM) 40 mg capsule Take 1 capsule by mouth daily before breakfast. 1/2 hr before meal. fenofibrate nanocrystallized (TRICOR) 145 mg tablet Take 1 tablet by mouth once daily. VUMERITY 231 mg capsule, delayed release Twice daily-Dr. Clemente dimethyl fumarate (TECFIDERA) [address] Take 1 capsule by mouth twice daily. SYMBICORT 160-4.5 mcg/actuation inhaler Inhale 2 Puffs as instructed twice daily as needed. gabapentin (NEURONTIN) 800 mg tablet Take 1 tablet by mouth fo (more content not included)... [facility] 11-17-2022 Instructions Clara Christianson APRN.CNP - 11/17/2022 2:48 PM EDT Always bring an updated medication list to every appointment. Your next appointment has been scheduled with Dr. Hobbs and Device Clinic. Please get FASTING bloodwork with your PCP. Keep a blood pressure log and bring to next appointment. Call for results of any testing/ lab work. Eat a no added salt diet. Patient instructed to follow a low cholesterol diet. Limit total intake of fats, oils and sweets. Avoid any fried foods. Fish, turkey,lean meats, nonfat dairy products, steamed vegetables and whole grains are all better choices for a low cholesterol diet. Discussed importance of regular exercise and recommended starting or continuing a regular aerobic exercise program for good health. Exercising five times a week for 30-45 min is ideal, but start slowly. Begin at 15 minutes the first week and gradually increase every week by 5 minutes. If you experience chest pain, increasing shortness of breath, palpitations, stop exercise until symptoms go away, you can then resume activities. Watch for cardiac symptoms or any changes, if they persist call physician immediately. Wearing support stockings can help reduce fluid retention. Follow up with all other providers. Continue all current medications at this time. Call for any cardiac medication refills. Please call our office with any questions or concerns. documented in this encounter [facility] 11-17-2022 History of Presen t illness Narrative Summary: 1 year cardiology follow-up Images from the original note were not included. [facility] OUTPATIENT VISIT DATE November 17, 2022 OUTPATIENT VISIT TYPE ESTABLISHED PATIENT PRIMARY CARE PHYSICIAN: Edmundo Rodriguez [address] [place] [address] HISTORY OF PRESENT ILLNESS: Ms. Albright is a 71 year old female with a history of coronary artery disease, status post CABG 07/22/13, hypertension, hypercholesterolemia, paroxysmal atrial fibrillation, Biventricualr dual chamber pacemaker implant for CHB on 09/06/15, history of multiple sclerosis , GI bleed on Xarelto on August 2015, History of bladder stimulator implant. Patient returns for follow-up with her Tejas. Patient states lab work is obtained by her PCP in [place]. Patient states she is at her baseline of shortness of breath, denies palpitations, lightheaded dizziness syncope or falls. Patient is in a wheeled walker. Patient has multiple sclerosis and has a brace on her right foot. Patient is on Eliquis and denies bleeding issues. Patient does not smoke and will have a rare alcoholic beverage at the holidays. Patient wears her CPAP nightly. Patient is describing sharp chest pain over her pacemaker site in the upper left shoulder lasting 2 minutes in duration for the last several months. Patient says she rubs it and help soothe it. This only occurs at night when she is sitting in her recliner. Patient's device check shows 2 and half years until AMMON and no acute changes. Device clinic discussed sharp pains in her findings and decided it did not seem to be device related. Device clinic was going to relayed that message to the patient PAST CARDIAC HISTORY: STEMI CABG Hypertension Hyperlipidemia Bi V dual-chamber pacemaker 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 11/19/2015 CAD (coronary artery disease) 07/2013 non-STMI/CABG GERD (gastroesophageal reflux disease) hiatal hernia History of DVT (deep vein thrombosis) 09/14/2015 History of rectal polypectomy 07/2011 Hyperlipidemia Hypertension Iron deficiency anemia Multiple sclerosis (HCC) Neuropathic pain Legs>arms from MS REBECCA (obstructive sleep apnea) on CPAP Pacemaker Pulmonary embolism (HCC) 07/2013 during hospitalization for MA Vitamin D deficiency PAST SURGICAL HISTORY Procedure Laterality Date CABG, ARTERIAL, TWO 07/22/13 THURMAN to LAD and Dx CARPAL TUNNEL CATARACT EXTRACTION HX Right 03/23/2017 Dr. Das - [place] CATARACT EXTRACTION HX Left 04/16/2017 Dr. Das COLONOSCOPY 08/01/2011 5mm rectal polyp COLONOSCOPY 12/05/2015 rectal polyp (adenoma) and diverticulosis EGD 07/17/2011 sliding hiatal hernia ENDOSCOPY PROC 11/19/15 Dr. Lema- HEART CATHETERIZATION ?1980s HYSTERECTOMY HX 1982 PACEMAKER ROTATOR CUFF REPAIR right SOCIAL HISTORY Social History Tobacco Use Smoking status: Former Packs/day: 1.00 Years: 20.00 Total pack years: 20.00 Types: Cigarettes Smokeless tobacco: Never Vaping Use Vaping Use: Never used Substance Use Topics Alcohol use: No Drug use: No FAMILY HISTORY Problem Relation Age of Onset Cancer Father Diabetes Mother Coronary Artery Disease Mother MA's Coronary Artery Disease Brother 2 brothers CABG Aneurysm Brother Heart Sister MA's, valve replaced Stroke Sister Ovarian cancer Sister Multiple Sclerosis Sister Hypertension Sister ALLERGIES Allergen Reactions Glatiramer Itching, Rash MEDICATIONS: DULoxetine (CYMBALTA) 30 mg capsule take 1 capsule by mouth every day in the evening DULoxetine (CYMBALTA) 60 mg capsule pravastatin (PRAVACHOL) 40 mg tablet Take 1 tablet by mouth daily at bedtime. losartan (COZAAR) 50 mg tablet Take 1 tablet by mouth once daily. spironolactone (ALDACTONE) 25 mg tablet Take 1 tablet by mouth once daily. apixaban (ELIQUIS) 5 mg tab(s) Take 1 tablet by mouth twice daily. carvedilol (COREG) 25 mg tablet Take 0.5 tablets by mouth twice daily. magnesium oxide (MAGOX) 400 mg (241.3 mg magnesium) tablet Take 1 tablet by mouth twice daily. esomeprazole (NEXIUM) 40 mg capsule Take 1 capsule by mouth daily before breakfast. 1/2 hr before meal. fenofibrate nanocrystallized (TRICOR) 145 mg tablet Take 1 tablet by mouth once daily. VUMERITY 231 mg capsule, delayed release Twice daily-Dr. Clemente dimethyl fumarate (TECFIDERA) [address] Take 1 capsule by mouth twice daily. SYMBICORT 160-4.5 mcg/actuation inhaler Inhale 2 Puffs as instructed twice daily as needed. gabapentin (NEURONTIN) 800 mg tablet Take 1 tablet by mouth four times daily. ALBUTEROL SULFATE HFA INHALATION Inhale as instructed. baclofen (LIORESAL) 20 mg tablet Take by mouth three times daily as needed. 1 in am, 1in afternoon and 2 at bedtime COMPOUNDED PRESCRIPTION One pair of shoes to fit over leg brace. Dx: G35; M79.2 nitroglycerin sublingual (NITROQUICK) 0.4 mg SL tablet Dissolve 1 tablet under the tongue every 5 minutes as needed for Chest Pain. multivitamin (MULTIPLE VITAMINS) tablet Take 1 tablet by mouth once daily. aspirin, enteric coated (ASPIRIN, ENTERIC COATED) 81 mg EC tablet Take 81 mg by mouth once daily. ferrous sulfate 325 mg (65 mg iron) tablet Take 325 mg by mouth daily with breakfast. Latest Reference Range & Units 08/27/22 08:13 Sodium 136 - 144 mmol/L 140 Potassium 3.7 - 5.1 mmol/L 4.5 Chloride 97 - 105 mmol/L 105 CO2 22 - 30 mmol/L 26 BUN 7 - 21 mg/dL 21 Creatinine 0.58 - 0.96 mg/dL 0.74 Glucose 74 - 99 mg/dL 79 Protein, Total 6.3 - 8.0 g/dL 6.7 Calcium 8.5 - 10.2 mg/dL 11.2 (H) Albumin 3.9 - 4.9 g/dL 4.1 Bilirubin, Total 0.2 - 1.3 mg/dL 0.3 Alkaline Phosphatase 34 - 123 U/L 68 ALT 7 - 38 U/L 26 AST 13 - 35 U/L 30 Anion Gap 9 - 18 mmol/L 9 eGFR >=60 mL/min/1.73m 86 Cholesterol, Total <200 mg/dL 126 Triglyceride <150 mg/dL 145 Fasting Time hrs 13 HDL Cholesterol >39 mg/dL 36 (L) LDL Cholesterol <100 mg/dL 61 VLDL Cholesterol <30 mg/dL 29 TC:HDL Ratio <5.10 3.50 LDL:HDL Ratio <2.54 1.69 Non HDL Cholesterol <130 mg/dL 90 Hemoglobin A1C 4.3 - 5.6 % 5.5 Estimated Average Glucose mg/dL 111 WBC 3.70 - 11.00 k/uL 7.82 RBC 3.90 - 5.20 m/uL 4.97 Hemoglobin 11.5 - 15.5 g/dL 13.5 Hematocrit 36.0 - 46.0 % 44.1 Platelet Count 150 - 400 k/uL 297 MCV 80.0 - 100.0 fL 88.7 MCH 26.0 - 34.0 pg 27.2 MCHC 30.5 - 36.0 g/dL 30.6 MPV 9.0 - 12.7 fL 9.9 RDW-CV 11.5 - 15.0 % 14.6 DTYPE Auto Neut% % 79.1 Abs Neut (ANC) 1.45 - 7.50 k/uL 6.19 Lymph% % 11.3 Abs Lymph 1.00 - 4.00 k/uL 0.88 (L) [place]% % 7.9 Abs [place] <0.87 k/uL 0.62 Eosin% % 0.9 Abs Eosin <0.46 k/uL 0.07 Baso% % 0.3 Abs Baso <0.11 k/uL <0.03 Immature Gran % % 0.5 IMMATURE GRANS (ABS) <0.10 k/uL 0.04 NRBC /100 WBC 0.0 Absolute nRBC <0.01 k/uL <0.01 (H): Data is abnormally high (L): Data is abnormally low REVIEW OF SYSTEMS: Review of Systems Constitutional: Positive for fatigue. HENT: Positive for hearing loss. Gastrointestinal: Positive for constipation. Endocrine: Hair loss Musculoskeletal: Positive for back pain. Allergic/Immunologic: Positive for environmental allergies. Psychiatric/Behavioral: Memory loss All other systems reviewed and are negative. PHYSICAL EXAMINATION: BP 137/66 (BP Site: Left Arm, BP Position: Sitting, BP Cuff Size: Extra Large Adult) Ht 157.5 cm (5' 2 ) SpO2 97% BMI 40.68 kg/m Physical Exam Constitutional: Appearance: She is obese. HENT: Head: Normocephalic and atraumatic. Neck: Vascular: No carotid bruit. Cardiovascular: Rate and Rhythm: Normal rate. Pulses: Normal pulses. Heart sounds: Murmur heard. Comments: Paced rhythm 2 out of 6 graded murmur in left parasternal area Pulmonary: Effort: Pulmonary effort is normal. Breath sounds: Normal breath sounds. Abdominal: Palpations: Abdomen is soft. Musculoskeletal: Cervical back: Normal range of motion and neck supple. Right lower leg: No edema. Left lower leg: No edema. Comments: Brace on r foot - MS Walks with wheeled walker Skin: General: Skin is warm and dry. Capillary Refill: Capillary refill takes less than 2 seconds. Neurological: Mental Status: She is alert and oriented to person, place, and time. Psychiatric: Mood and Affect: Mood normal. Behavior: Behavior normal. Thought Content: Thought content normal. Judgment: Judgment normal. CARDIOVASCULAR MEDICINE TESTING: ECG 11/17/22 ELECTRONIC VENTRICULAR PACEMAKER VENT RATE 63 BPM IL INTERVAL 168 MS QRS DURATION 134 MS QT/QTC 444/454 MS P-R-T AXES 65 145 71 IMPRESSION AND RECOMMENDATIONS: Ms. Albright is a 71 year old female with history of 1. Coronary artery disease involving [place] coronary artery of [place] heart without angina pectoris Patient has history of coronary artery disease, status post CABG. patient reports to be at baseline with her shortness of breath. Patient does not ambulate much and is deconditioned. Patient is in a wheeled walker due to her multiple sclerosis. 2. Bi -Ventricular ICD Patient underwent interrogation of her [place] scientific BiV ICD. Patient has 2-1/2 years until AMMON. No acute findings no changes made. 3. Essential hypertension Patient's blood pressure was 137/66. Patient is to follow a no added sodium diet and continue with her current medications. 4. Hyperlipidemia, unspecified hyperlipidemia type Patient is on pravastatin and denies myalgias. Patient's PCP Dr. Edmundo Yu manage patient's lipids. Patient is to follow a low-cholesterol low-fat diet. 5. Congestive heart failure, unspecified HF chronicity, unspecified heart failure type (HCC) Patient has a history of heart failure who is compensated on today's exam. Patient is to follow a no added sodium in diet. Clara Christianson APRN.MEDICAL ESTHETICIAN documented in this encounter [facility] 10-17-2022 Miscellaneous Notes Detailed message left on [facility] identified VM. Shara Oneil Ma Pravachol increased to 40 mg Edmundo Rodriguez MD [facility] [employer] clinical- asking why pcp chose not to increase patient's statin. Reports patient was flagged by Medicare due to sclerotic heart disease, patients should be taking a moderate to high intensity cholesterol medication: 40 - 80 mg daily. Asking if there is anything preventing the doctor from increasing intensity of pravastatin. Please phone [facility] with reply. documented in this encounter [facility] 09-17-2022 Miscellaneous Notes Both appt's. Are 1:00 and 1:30PM. I was in the middle of doing . Tracee Warren Patient called stating that she was talking to someone about changing her appt to 11/17 and the phone call was disconnected. On 11/17 device check is scheduled for 11:30, but Clara Christianson appt is scheduled for 1:30. Please call patient for appt date and time clarification @ [phone]. documented in this encounter [facility] 08-19-2022 Note HNO ID: [id number] Author: Edmundo Rodriguez MD Service: ? Author Type: Physician Type: Progress Notes Filed: 08/19/2022 12:03 PM Note Text: Chief Complaint Patient presents with: F/U 6 Month HPI Jenni Albright is a 71 year old female who presents here today for 6 month follow up. Here with , Tejas and daughter, Lillian. No bowel, Gi, or urinary issues. GERD: Sx controlled on Nexium 40 mg daily. HTN/CHF: Follows with Cardio Dr. Hobbs. Denies any chest pains, dizziness, or SOB. Does not check BP at home. Currently taking Coreg 25 mg half pill BID, Losartan 50 mg daily, and Aldactone 25 mg daily. Has a pacemaker. PE AND DVT: Is on Eliquis 5 mg BID. CAD/Lipid/Glucose: Taking Plavix 75 mg daily, Tricor 145 mg daily and Pravastatin 20 mg daily. Does not watch diet or exercise. MS: Taking Tecfidera 240 mg BID, Gabapentin 800 mg QID and Vumerity 231 mg 1 pill BID. No longer on Rebif injections weekly. Follows with Neuro Dr. Clemente. REBECCA: Using CPAP nightly. Feels this is working well for her. Follows with Raven Berger. Gets supplies through [facility]. Pain - Located in L shoulder down to her hand. Pain started about 1 month ago, no injury she's aware of. Pain is intermittent, but wakes her up at night multiple times a night. Pain described as radiating and sharp. No pain presently. States when she has the pain her ROM is limited. Able to move when she's not having pain. HM - Declines Mammogram due to having pacemaker. Has Adv Dir/Living Will. Declines feeling down, depressed or hopeless. Depression screening tool completed and reviewed. Based on score and interview, patient is not at risk for depression. Screening tool discussed with patient, and I recommended no further intervention at this time Declines Colon cancer screening. Declines Shingrix vaccine. Past medical history, appointments, medications, allergies reviewed. 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 11/19/2015 CAD (coronary artery disease) 07/2013 non-STMI/CABG GERD (gastroesophageal reflux disease) hiatal hernia History of DVT (deep vein thrombosis) 09/14/2015 History of rectal polypectomy 07/2011 Hyperlipidemia Hypertension Iron deficiency anemia Multiple sclerosis (HCC) Neuropathic pain Legs>arms from MS REBECCA (obstructive sleep apnea) on CPAP Pacemaker Pulmonary embolism (HCC) 07/2013 during hospitalization for MA Vitamin D deficiency Previous Surgical History PAST SURGICAL HISTORY Procedure Laterality Date CABG, ARTERIAL, TWO 07/22/13 THURMAN to LAD and Dx CARPAL TUNNEL CATARACT EXTRACTION HX Right 03/23/2017 Dr. Das - [place] CATARACT EXTRACTION HX Left 04/16/2017 Dr. Das COLONOSCOPY 08/01/2011 5mm rectal polyp COLONOSCOPY 12/05/2015 rectal polyp (adenoma) and diverticulosis EGD 07/17/2011 sliding hiatal hernia ENDOSCOPY PROC 11/19/15 Dr. Lema- HEART CATHETERIZATION ? HYSTERECTOMY HX 1982 PACEMAKER ROTATOR CUFF REPAIR right Family History FAMILY HISTORY Problem Relation Age of Onset Cancer Father Diabetes Mother Coronary Artery Disease Mother MA's Coronary Artery Disease Brother 2 brothers CABG Aneurysm Brother Heart Sister MA's, valve replaced Stroke Sister Ovarian cancer Sister Multiple Sclerosis Sister Hypertension Sister Patient Allergies ALLERGIES Allergen Reactions Glatiramer Itching, Rash Current Medications Current Outpatient Medications on File Prior to Visit Medication Sig losartan (COZAAR) 50 mg tablet Take 1 tablet by mouth once daily. spironolactone (ALDACTONE) 25 mg tablet Take 1 tablet by mouth once daily. apixaban (ELIQUIS) 5 mg tab(s) Take 1 tablet by mouth twice daily. carvedilol (COREG) 25 mg tablet Take 0.5 tablets by mouth twice daily. magnesium oxide (MAGOX) 400 mg (241.3 mg magnesium) tablet Take 1 tablet by mouth twice daily. pravastatin (PRAVACHOL) 20 mg tablet Take 1 tablet by mouth daily at bedtime. esomeprazole (NEXIUM) 40 mg capsule Take 1 capsule by mouth daily before breakfast. 1/2 hr before meal. fenofibrate nanocrystallized (TRICOR) 145 mg tablet Take 1 tablet by mouth once daily. VUMERITY 231 mg capsule, delayed release Twice daily-Dr. Clemente dimethyl fumarate (TECFIDERA) [address] Take 1 capsule by mouth twice daily. SYMBICORT 160-4.5 mcg/actuation inhaler Inhale 2 Puffs as instructed twice daily as needed. gabapentin (NEURONTIN) 800 mg tablet Take 1 tablet by mouth four times daily. ALBUTEROL SULFATE HFA INHALATION Inhale as instructed. baclofen (LIORESAL) 20 mg tablet Take by mouth three times daily as needed. 1 in am, 1in afternoon and 2 at bedtime COMPOUNDED PRESCRIPTION One pair of shoes to fit over leg brace. Dx: G35; M79.2 nitroglycerin sublingual (NITROQUICK) 0.4 mg SL tablet Dissolve 1 tablet under the tongue every 5 minutes as needed for Chest Pain. mu (more content not included)... [facility] 08-19-2022 History of Presen t illness Narrative Chief Complaint Patient presents with: F/U 6 Month HPI Jenni Albright is a 71 year old female who presents here today for 6 month follow up. Here with , Tejas and daughter, Lillian. No bowel, Gi, or urinary issues. GERD: Sx controlled on Nexium 40 mg daily. HTN/CHF: Follows with Cardio Dr. Hobbs. Denies any chest pains, dizziness, or SOB. Does not check BP at home. Currently taking Coreg 25 mg half pill BID, Losartan 50 mg daily, and Aldactone 25 mg daily. Has a pacemaker. PE & DVT: Is on Eliquis 5 mg BID. CAD/Lipid/Glucose: Taking Plavix 75 mg daily, Tricor 145 mg daily and Pravastatin 20 mg daily. Does not watch diet or exercise. MS: Taking Tecfidera 240 mg BID, Gabapentin 800 mg QID and Vumerity 231 mg 1 pill BID. No longer on Rebif injections weekly. Follows with Neuro Dr. Clemente. REBECCA: Using CPAP nightly. Feels this is working well for her. Follows with Raven Berger. Gets supplies through [employer]. Pain - Located in L shoulder down to her hand. Pain started about 1 month ago, no injury she's aware of. Pain is intermittent, but wakes her up at night multiple times a night. Pain described as radiating and sharp. No pain presently. States when she has the pain her ROM is limited. Able to move when she's not having pain. HM - Declines Mammogram due to having pacemaker. Has Adv Dir/Living Will. Declines feeling down, depressed or hopeless. Depression screening tool completed and reviewed. Based on score and interview, patient is not at risk for depression. Screening tool discussed with patient, and I recommended no further intervention at this time Declines Colon cancer screening. Declines Shingrix vaccine. Past medical history, appointments, medications, allergies reviewed. 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 11/19/2015 CAD (coronary artery disease) 07/2013 non-STMI/CABG GERD (gastroesophageal reflux disease) hiatal hernia History of DVT (deep vein thrombosis) 09/14/2015 History of rectal polypectomy 07/2011 Hyperlipidemia Hypertension Iron deficiency anemia Multiple sclerosis (HCC) Neuropathic pain Legs>arms from MS REBECCA (obstructive sleep apnea) on CPAP Pacemaker Pulmonary embolism (HCC) 07/2013 during hospitalization for [place] Vitamin D deficiency Previous Surgical History PAST SURGICAL HISTORY Procedure Laterality Date CABG, ARTERIAL, TWO 07/22/13 THURMAN to LAD and Dx CARPAL TUNNEL CATARACT EXTRACTION HX Right 03/23/2017 Dr. Thiago Verdugo CATARACT EXTRACTION HX Left 04/16/2017 Dr. Das COLONOSCOPY 08/01/2011 5mm rectal polyp COLONOSCOPY 12/05/2015 rectal polyp (adenoma) and diverticulosis EGD 07/17/2011 sliding hiatal hernia ENDOSCOPY PROC 11/19/15 Dr. Lema- HEART CATHETERIZATION ? HYSTERECTOMY HX 1982 PACEMAKER ROTATOR CUFF REPAIR right Family History FAMILY HISTORY Problem Relation Age of Onset Cancer Father Diabetes Mother Coronary Artery Disease Mother MA's Coronary Artery Disease Brother 2 brothers CABG Aneurysm Brother Heart Sister MA's, valve replaced Stroke Sister Ovarian cancer Sister Multiple Sclerosis Sister Hypertension Sister Patient Allergies ALLERGIES Allergen Reactions Glatiramer Itching, Rash Current Medications Current Outpatient Medications on File Prior to Visit Medication Sig losartan (COZAAR) 50 mg tablet Take 1 tablet by mouth once daily. spironolactone (ALDACTONE) 25 mg tablet Take 1 tablet by mouth once daily. apixaban (ELIQUIS) 5 mg tab(s) Take 1 tablet by mouth twice daily. carvedilol (COREG) 25 mg tablet Take 0.5 tablets by mouth twice daily. magnesium oxide (MAGOX) 400 mg (241.3 mg magnesium) tablet Take 1 tablet by mouth twice daily. pravastatin (PRAVACHOL) 20 mg tablet Take 1 tablet by mouth daily at bedtime. esomeprazole (NEXIUM) 40 mg capsule Take 1 capsule by mouth daily before breakfast. 1/2 hr before meal. fenofibrate nanocrystallized (TRICOR) 145 mg tablet Take 1 tablet by mouth once daily. VUMERITY 231 mg capsule, delayed release Twice daily-Dr. Clemente dimethyl fumarate (TECFIDERA) [address] Take 1 capsule by mouth twice daily. SYMBICORT 160-4.5 mcg/actuation inhaler Inhale 2 Puffs as instructed twice daily as needed. gabapentin (NEURONTIN) 800 mg tablet Take 1 tablet by mouth four times daily. ALBUTEROL SULFATE HFA INHALATION Inhale as instructed. baclofen (LIORESAL) 20 mg tablet Take by mouth three times daily as needed. 1 in am, 1in afternoon and 2 at bedtime COMPOUNDED PRESCRIPTION One pair of shoes to fit over leg brace. Dx: G35; M79.2 nitroglycerin sublingual (NITROQUICK) 0.4 mg SL tablet Dissolve 1 tablet under the tongue every 5 minutes as needed for Chest Pain. multivitamin (MULTIPLE VITAMINS) tablet Take 1 tablet by mouth once daily. aspirin, enteric coated (ASPIRIN, ENTERIC COATED) 81 mg EC tablet Take 81 mg by mouth once daily. ferrous sulfate 325 mg (65 mg iron) tablet Take 325 mg by mouth daily with breakfast. No current facility-administered medications on file prior to visit. Social History Social History Tobacco Use Smoking status: Former Packs/day: 1.00 Years: 20.00 Pack years: 20.00 Types: Cigarettes Smokeless tobacco: Never Vaping Use Vaping Use: Never used Substance Use Topics Alcohol use: No Drug use: No EXAM: BP 120/80 (BP Site: Right Arm, BP Position: Sitting, BP Cuff Size: Large Adult) Pulse 75 Resp 16 SpO2 98% General Appearance: Well appearing, alert, in no acute distress, well-hydrated, well nourished. and Obese. Lungs: Lungs clear to auscultation. No wheezing, rhonchi, rales.. Heart: RRR without murmur, gallop, or rubs. No ectopy. Extremities: L arm examined. Pain to palpate lateral epicondyl Health Maintenance List DTAP,TDAP,TD(1 - Tdap) Never done SHINGRIX VACCINE(1 of 2) Never done BONE DENSITY Never done MAMMOGRAM due on 08/26/2015 COLORECTAL CANCER SCREENING due on 12/04/2020 COVID-19 VACCINE(4 - Booster for Pfizer series) due on 06/17/2021 ADVANCE DIRECTIVE DISCUSSION due on 04/13/2022 DEPRESSION ASSESSMENT due on 04/13/2022 LDL CHOLESTEROL due on 07/29/2022 ANNUAL PCP TEAM CHRONIC DISEASE VISIT due on 04/02/2023 BP CONTROLLED (<130/80) due on 04/02/2023 DIABETES SCREEN due on 07/29/2024 LIPID SCREEN due on 07/29/2026 INFLUENZA Completed HEPATITIS C SCREENING Completed PNEUMOCOCCAL: 65+ Completed Data reviewed None ASSESSMENT/PLAN: 1. Essential hypertension - ICD9: 401.9, ICD10: I10 (primary diagnosis) - good control - Check labs fasting - Continue current medication(s) - Recommended regular aerobic exercise. - Recommend home blood pressure monitoring, to bring results in on next visit - Goal of BP <130/80 2. Coronary artery disease involving [place] coronary artery of [place] heart without angina pectoris - ICD9: 414.01, ICD10: I25.10 - Check labs - Continue current medication regimen. 3. Elevated glucose - ICD9: 790.29, ICD10: R73.09 - check labs - Cont diet/exercise 4. Hyperlipidemia, unspecified hyperlipidemia type - ICD9: 272.4, ICD10: E78.5 - check labs - Continue current medication regimen. 5. History of DVT (deep vein thrombosis) - ICD9: V12.51, ICD10: Z86.718 - Stable - Continue current medication regimen. 6. Gastroesophageal reflux disease, unspecified whether esophagitis present - ICD9: 530.81, ICD10: K21.9 - Stable - Continue current medication regimen. 7. Multiple sclerosis (HCC) - ICD9: 340, ICD10: G35 - Cont f/u with Neuro - Continue current medication regimen. 8. REBECCA (obstructive sleep apnea) - ICD9: 327.23, ICD10: G47.33 - Stable with use of CPAP 9. Spastic hemiplegia, unspecified etiology, unspecified laterality (HCC) - ICD9: 342.10, ICD10: G81.10 - Cont f/u with Neuro 10. Morbid obesity (HCC) - ICD9: 278.01, ICD10: E66.01 - Watch diet and exercise as able 11. Congestive heart failure, unspecified HF chronicity, unspecified heart failure type (HCC) - ICD9: 428.0, ICD10: I50.9 - Cont f/u with Cardiology - Continue current medication regimen. 12. PAF (paroxysmal atrial fibrillation) (HCC) - ICD9: 427.31, ICD10: I48.0 - Stable - Continue current medication regimen. 13. Other pulmonary embolism without acute cor pulmonale, unspecified chronicity (HCC) - ICD9: 415.19, ICD10: I26.99 - Stable - Continue current medication regimen. 14. Left elbow tendonitis - ICD9: 727.09, ICD10: M77.8 - Rx Prednisone 9 day taper; call if not improved after that and would consider Ortho or PT eval 6 mo f/u. Complete labs in the next couple week, will update on those results. I agree with the Chief Complaint, ROS, and Past Histories independently gathered by the clinical user support analyst and the remaining scribed note accurately describes my personal service to the patient. Medical Decision Making: Problems: Moderate: 2+ stable chronic illnesses Risk: Moderate: Drug management Medical Decision Making Level: 4 - Moderate Edmundo Rodriguez MD The documentation for this note was completed by Leah Caruso Ma acting as scribe for Edmundo Rodriguez MD. August 19, 2022 9:25 AM. Leah Caruso Ma documented in this encounter [facility] 08-12-2022 Miscellaneous Notes Noted Edmundo Rodriguez MD Emmanuel with [employer] called in and reports they called in last year and sent the provider a fax that the Pt was flagged that she needed to be on a Statin for her Coronary Artery Disease. He states she is on Pravastatin, but only 20 mg and needs to be on 40 mg to be therapeutic. He states the provider said he would go over this with the Pt at her next appointment and that is on 08/19/22. Let him know that he didn't need to send another fax to the provider about it. documented in this encounter [facility] 06-27-2022 Miscellaneous Notes OK to refill as ordered Edmundo Rodriguez MD Pharmacy verified in [facility] Patient has been identified by name and date of : Yes Patient aware RX will be sent to pharmacy. No need to notify patient. Patient phones for refill(s): Requested Prescriptions Pending Prescriptions Disp Refills losartan (COZAAR) 50 mg tablet 90 tablet 3 Sig: Take 1 tablet by mouth once daily. spironolactone (ALDACTONE) 25 mg tablet 90 tablet 3 Sig: Take 1 tablet by mouth once daily. Date of last office visit : 04/02/2022 Date of next office visit : 08/19/2022 Last 2 Encounter Wt Readings: Date: Wt: 04/02/2022 100.9 kg (222 lb 6.4 oz) 02/13/2022 102.3 kg (225 lb 9.6 oz) Please advise. Kimi Morin Pss documented in this encounter [facility] 05-17-2022 Miscellaneous Notes OK to refill as ordered Edmundo Rodriguez MD Pharmacy verified in Epic Patient has been identified by name and date of : Yes Patient aware RX will be sent to pharmacy. No need to notify patient. Patient phones for refill(s): Requested Prescriptions Pending Prescriptions Disp Refills carvedilol (COREG) 25 mg tablet 90 tablet 3 Sig: Take 0.5 tablets by mouth twice daily. magnesium oxide (MAGOX) 400 mg (241.3 mg magnesium) tablet 180 tablet 3 Sig: Take 1 tablet by mouth twice daily. pravastatin (PRAVACHOL) 20 mg tablet 90 tablet 3 Sig: Take 1 tablet by mouth daily at bedtime. esomeprazole (NEXIUM) 40 mg capsule 90 capsule 3 Sig: Take 1 capsule by mouth daily before breakfast. 1/2 hr before meal. fenofibrate nanocrystallized (TRICOR) 145 mg tablet 90 tablet 3 Sig: Take 1 tablet by mouth once daily. MARIANO-04/02/22 Labs-11/21/21 NOV-08/19/22 Date of last office visit : 04/02/2022 Date of next office visit : 08/19/2022 Last 2 Encounter Wt Readings: Date: Wt: 04/02/2022 100.9 kg (222 lb 6.4 oz) 02/13/2022 102.3 kg (225 lb 9.6 oz) Please advise. Kimi Morin Pss documented in this encounter [facility] 04-29-2022 Miscellaneous Notes Summary: Appt Patient was seen yesterday. Please call pt and reschedule device check. documented in this encounter [facility] 04-15-2022 Miscellaneous Notes Below left on pt identified VM. Shara Oneil Ma Can you please let the patient know that I sent in an antibiotic called Bernard, I want her to take this for the next 7 days. she needs to hold her magnesium and iron while she is on this antibiotic due to possible interaction. She can continue with any [id number] cold and cough medication as needed. May use Mucinex to help get mucus out of the chest. Stay well-hydrated. If symptoms do not improve I would like her to contact the office. Repeat chest x-ray in 1 month. Thank you. Puja Castillo APRN.QUINTON Patient notified of results, verbalizes understanding of instructions. Pt stated she is still coughing and left side of head congested. Kimi Gaxiola LPN Can you please call the patient and let her know that I reviewed her chest x-ray results. There is some increased density in the right which may represent infiltrate such as pneumonia. Can you please ask how she is feeling? If she is still having symptoms I would like to send in a different antibiotic. Thank you. Puja Castillo APRN.QUINTON documented in this encounter [facility] 04-08-2022 Miscellaneous Notes Patient notified of recommendations from QUINTON, verbalizes understanding of instructions. Kimi Gaxiola LPN Can you please call the patient and let her know that I would recommend that she finish the doxycycline. If symptoms are not improving I would like to get a chest x-ray. Order is in. Puja Castillo APRN.QUINTON Patient calling was told to give report on how she is doing. Patient said she is not feeling any better, still wheezing, fever off and on, and green secretions. Patient completed prednisone rx, has 2 days of cough syrup left and few days of doxycycline rx left. Patient asking what else did you want her to do? Please advise documented in this encounter [facility] 04-02-2022 Instructions Puja Castillo APRN.QUINTON - 04/02/2022 1:15 PM EST Start doxycyline , take with food. Take Prednisone 40 mg daily for 5 days. May use codeine cough syrup three times daily as needed. May make you sleeping. Do not take with Gabapentin. May use over the counter cold and cough medications as needed. Stay well hydrated. Follow up as needed. documented in this encounter [facility] 04-02-2022 History of Presen t illness Narrative This is a 71 year old female who presents today with: Patient presents with: Cough: X 1 month- cough productive with yellow/green tinged phlegm. Some head congestion in the am. HISTORY OF PRESENT ILLNESS: Jenni Albright is a 71 year old female. Patient presents with: Cough: X 1 month- cough productive with yellow/green tinged phlegm. Some head congestion in the am. Here in the office for complaints of cough and wheezing for over 1 month. Coughing up small amount of yellow green mucus. Low grade fever today at the office. Using Symbicort BID. Refers she has a history of asthma. Following pulmonology. History of HTN, CAD, PE, HTN. Following withy cardiology. Cough seems to be progressing. SOB with cough episodes. No sore throat or ear pain. Using OTC cold and cough medications. 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 11/19/2015 CAD (coronary artery disease) 07/2013 non-STMI/CABG GERD (gastroesophageal reflux disease) hiatal hernia History of DVT (deep vein thrombosis) 09/14/2015 History of rectal polypectomy 07/2011 Hyperlipidemia Hypertension Iron deficiency anemia Multiple sclerosis (HCC) Neuropathic pain Legs>arms from MS REBECCA (obstructive sleep apnea) on CPAP Pacemaker Pulmonary embolism (HCC) 07/2013 during hospitalization for MA Vitamin D deficiency PAST SURGICAL HISTORY Procedure Laterality Date CABG, ARTERIAL, TWO 07/22/13 THURMAN to LAD and Dx CARPAL TUNNEL CATARACT EXTRACTION HX Right 03/23/2017 Dr. Das - [place] CATARACT EXTRACTION HX Left 04/16/2017 Dr. Das COLONOSCOPY 08/01/2011 5mm rectal polyp COLONOSCOPY 12/05/2015 rectal polyp (adenoma) and diverticulosis EGD 07/17/2011 sliding hiatal hernia ENDOSCOPY PROC 11/19/15 Dr. Lema- HEART CATHETERIZATION ?1980s HYSTERECTOMY HX 1982 PACEMAKER ROTATOR CUFF REPAIR right ALLERGIES Glatiramer MEDICATIONS Current Outpatient Medications Medication Sig VUMERITY 231 mg capsule, delayed release Twice daily-Dr. Clemente spironolactone (ALDACTONE) 25 mg tablet Take 1 tablet by mouth once daily. losartan (COZAAR) 50 mg tablet Take 1 tablet by mouth once daily. magnesium oxide (MAGOX) 400 mg (241.3 mg magnesium) tablet Take 1 tablet by mouth twice daily. fenofibrate nanocrystallized (TRICOR) 145 mg tablet Take 1 tablet by mouth once daily. pravastatin (PRAVACHOL) 20 mg tablet Take 1 tablet by mouth daily at bedtime. esomeprazole (NEXIUM) 40 mg capsule Take 1 capsule by mouth daily before breakfast. 1/2 hr before meal. apixaban (ELIQUIS) 5 mg tab(s) Take 1 tablet by mouth twice daily. carvedilol (COREG) 25 mg tablet Take 0.5 tablets by mouth twice daily. dimethyl fumarate (TECFIDERA) [address] Take 1 capsule by mouth twice daily. SYMBICORT 160-4.5 mcg/actuation inhaler Inhale 2 Puffs as instructed twice daily as needed. gabapentin (NEURONTIN) 800 mg tablet Take 1 tablet by mouth four times daily. ALBUTEROL SULFATE HFA INHALATION Inhale as instructed. baclofen (LIORESAL) 20 mg tablet Take by mouth three times daily as needed. 1 in am, 1in afternoon and 2 at bedtime COMPOUNDED PRESCRIPTION One pair of shoes to fit over leg brace. Dx: G35; M79.2 nitroglycerin sublingual (NITROQUICK) 0.4 mg SL tablet Dissolve 1 tablet under the tongue every 5 minutes as needed for Chest Pain. multivitamin (MULTIPLE VITAMINS) tablet Take 1 tablet by mouth once daily. aspirin, enteric coated (ECOTRIN LOW STRENGTH) 81 mg EC tablet Take 81 mg by mouth once daily. Ferrous Sulfate (IRON) 325 mg (65 mg iron) tablet Take 325 mg by mouth daily with breakfast. No current facility-administered medications for this visit. FAMILY HISTORY Problem Relation Age of Onset Cancer Father Diabetes Mother Coronary Artery Disease Mother MA's Coronary Artery Disease Brother 2 brothers CABG Aneurysm Brother Heart Sister MA's, valve replaced Stroke Sister Ovarian cancer Sister Multiple Sclerosis Sister Hypertension Sister Social History Tobacco Use Smoking status: Former Packs/day: 1.00 Years: 20.00 Pack years: 20.00 Types: Cigarettes Smokeless tobacco: Never Vaping Use Vaping Use: Never used Substance Use Topics Alcohol use: No Drug use: No REVIEW OF SYSTEMS GENERAL: + Fever, chills HEENT: Negative for frequent or significant headaches, No changes in hearing or vision. NECK: Negative for lumps, goiter, pain and significant neck swelling RESPIRATORY: + Cough, SOB CARDIOVASCULAR: Negative for chest pain, leg swelling, orthopnea, or palpitations GI: No nausea, vomiting, or diarrhea/constipation. No hematochezia/melena. No heartburn or reflux symptoms. : No history of dysuria, frequency or incontinence MUSCULOSKELETAL: Negative for joint pain or swelling. SKIN: Negative for lesions, rash, and itching ENDOCRINE: Negative for cold or heat intolerance, polyuria, polydipsia and goiter NEURO: No history of headaches, syncope, paralysis, seizures or tremors MOOD: Negative for depression, anxiety, or suicidal ideation. EXAM: BP 122/70 Pulse 95 Temp 37.9 C (100.2 F) Resp 24 Wt 100.9 kg (222 lb 6.4 oz) SpO2 94% BMI 40.68 kg/m PHYSICAL EXAM: General Appearance: Well appearing, alert, in no acute distress, well-hydrated, well nourished. Skin: Skin color, texture, turgor normal, no suspicious rashes or lesions. Head: Normocephalic, no masses, lesions, tenderness or abnormalities. Eyes: Anicteric sclera. Extraocular movements are intact. Nose/Sinuses: Nares normal, septum midline, mucosa normal, no drainage or sinus tenderness. Neck: Supple, no adenopathy; thyroid symmetric, normal size, no bruits. Lungs: Positive findings: rhonchi Cough. Heart: RRR without murmur, gallop, or rubs. No ectopy. Extremities: No deformities, edema, skin discoloration, clubbing or cyanosis. Good capillary refill. Peripheral Pulses: Normal, Capillary refill <2secs, strong peripheral pulses, Pulses palpable. Neurologic: Gait normal. . Sensation grossly intact. ASSESSMENT/PLAN: 1. Bacterial pneumonia - ICD9: 482.9, ICD10: J15.9 - Will treat for pneumonia. - Start Doxycycline and prednisone 40 mg daily - May use codeine cough syrup as needed, medication education and instructions provided. - Denied wanting chest xray or covid/flu test. - DOXYCYCLINE HYCLATE 100 MG TABLET - PREDNISONE 20 MG TABLET - CODEINE 10 MG-GUAIFENESIN 100 MG/5 ML ORAL LIQUID Follow up as needed or sooner if symptoms do not improve. Discussed treatment plan and patient voices understanding. Patient's questions answered appropriately. Medications and potential side effects were discussed and patient voices understanding. Puja Castillo APRN.QUINTON This note was partially generated using ESTmob voice recognition system. Note was reviewed for accuracy. There may be minor misspellings or grammar miscues with [employer] voice recognition. documented in this encounter [facility] 04-02-2022 Miscellaneous Notes Protocol recommends see provider in 4 hours. Scheduled same day appt for patient and . request appt for both her and her - (cough for 1 mth, mild sore throat). Reason for Disposition [1] MILD difficulty breathing (e.g., minimal/no SOB at rest, SOB with walking, pulse <100) AND [2] still present when not coughing (Exception: no change from usual, chronic shortness of breath) Answer Assessment - Initial Assessment Questions 1. ONSET: 1 month ago. 2. SEVERITY: Constant everyday. Taking cough med, but not helping. 3. SPUTUM: Yellow 4. HEMOPTYSIS: No 5. DIFFICULTY BREATHING: Mild SOB 6. FEVER: No 7. CARDIAC HISTORY: MA, open heart surgery, has pacemaker. Takes BP medication. 8. LUNG HISTORY: Asthma. Uses symbicort bid. 9. PE RISK FACTORS: Hx of blood clots in charla legs. 10. OTHER SYMPTOMS: Wheezing. Runny nose / sinus pressure in mornings. 11. : No 12. TRAVEL: No exposures. No travel. has cough, mild sore throat. Protocols used: Cough - [id number] documented in this encounter [facility] 02-24-2022 Miscellaneous Notes Emmanuel with [facility] called in and reports they had talked with provider about increasing Pts statin due to her Cardiovascular disease. He asked if provider had in creased or addressed medication change in Pts last appointment. Let him know provider aid, Hyperlipidemia, unspecified hyperlipidemia type - ICD9: 272.4, ICD10: E78.5 - good control - Continue current medication. - Encouraged following a low fat, low cholesterol diet. - Discussed the benefits of regular aerobic exercise and weight loss. He is going to fax information to providers office again for an answer as they would like to close the case out. Please call and advise. Extension goes to Emmanuel. documented in this encounter [facility] 02-07-2022 Miscellaneous Notes Office received fax, routed to PCP to review and complete. Once complete fax back to [phone], Mynor Tadeo ([employer]). Leah Caruso Ma Noted Edmundo Rodriguez MD Emmanuel [facility] Pharmacist called in and reports Pt will be flagged by Medicare for being on too low of a dose of a Statin. He reports she has Chronic Ischemic Heart Disease (I25.9) and she should be on 40 mg or higher of her stating and she is only on 20 mg. He states they just wanted to call you before her next appointment. If you have any questions you can call him directly at [phone] ext [phone]. He reports he will also be re-faxing some papers to providers office that had been faxed about a month ago. documented in this encounter [facility] 02-05-[address] Clemente, Neurologist is prescribing Gabapentin to pt. Lacey should contact their office if questions regarding medication. Shara Oneil Ma Lacey called asking if fax from 11/19 regarding gabapentin had been received. She states she is going to send again today so that it can be gone over at patient's upcoming appointment. documented in this encounter [facility] 12-20-2021 Miscellaneous Notes Patient gets Gabapentin from her non-ccf neurologist. Deion Rankin APRN.QUINTON Patient has been identified by name and date of : Yes Requested Prescriptions Pending Prescriptions Disp Refills gabapentin (NEURONTIN) 800 mg tablet Sig: Take 1 tablet by mouth four times daily. MARIANO-08/09/21 Labs-11/21/21 NOV-02/13/22 med filled 02/08/21 RX INSTRUCTIONS: Patient states that the mg should be 900. Patient aware RX will be sent to pharmacy. No need to notify patient. Amira Poon documented in this encounter [facility] 12-10-2021 Miscellaneous Notes Opened in error documented in this encounter [facility] 2021 History of Presen t illness Narrative [facility] Hematology [ID [id number]] documented in this encounter [facility] 11-19-2021 Miscellaneous Notes Lacey with [employer] calling to state she will be faxing over some forms for Dr. Rodriguez to review for patient. Asking to consider higher statin dosage for pt if appropriate. Thank you. documented in this encounter [facility] 10-23-2021 Miscellaneous Notes I called and left a voicemail for patient that her device check is 04/28/22 @ 11:00 and her 1 year f/u appt with Dr. Hobbs is 10/27/22 @ 12:45. I asked her to call back and r/s if she could not keep these appts. Lucy Duvall documented in this encounter [facility] 10-22-2021 History of Presen t illness Narrative Images from the original note were not included. [facility] [place] OUTPATIENT VISIT DATE October 22, 2021 OUTPATIENT VISIT TYPE ESTABLISHED PRIMARY CARE PHYSICIAN: Edmundo Rodriguez [address] [place] [address] CHIEF COMPLAINT: Follow Up (6 month follow up with device check) HISTORY OF PRESENT ILLNESS: Ms. Albright is a 70 year old female who presents today for a cardiovascular medicine follow-up visit Her medical issues are: coronary artery disease, status post CABG 07/22/13, hypertension, hypercholesterolemia, paroxysmal atrial fibrillation, Biventricualr dual chamber pacemaker implant for CHB on 09/06/15, history of multiple sclerosis , GI bleed on Xarelto on August 2015, History of bladder stimulator implant. No significant change from last office visit. Currently patient is asymptomatic. Denies any any chest pain, shortness of breath, palpitation, leg swelling, dizziness, or syncope. Patient does not have any cardiac issues with less than regular activities. Patient is tolerating all current medicines well.Her activities are limited due to neurological issues.As per patient since the bladder implant stimulator. She is not retaining any water. she is off Furosemide and back on Aldactone. 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 11/19/2015 CAD (coronary artery disease) 07/2013 non-STMI/CABG GERD (gastroesophageal reflux disease) hiatal hernia History of DVT (deep vein thrombosis) 09/14/2015 History of rectal polypectomy 07/2011 Hyperlipidemia Hypertension Iron deficiency anemia Multiple sclerosis (HCC) Neuropathic pain Legs>arms from MS REBECCA (obstructive sleep apnea) on CPAP Pacemaker Pulmonary embolism (HCC) 07/2013 during hospitalization for MA Vitamin D deficiency PAST SURGICAL HISTORY Procedure Laterality Date CABG, ARTERIAL, TWO 07/22/13 THURMAN to LAD and Dx CARPAL TUNNEL CATARACT EXTRACTION HX Right 03/23/2017 Dr. Das - [place] CATARACT EXTRACTION HX Left 04/16/2017 Dr. Das COLONOSCOPY 08/01/2011 5mm rectal polyp COLONOSCOPY 12/05/2015 rectal polyp (adenoma) and diverticulosis EGD 07/17/2011 sliding hiatal hernia ENDOSCOPY PROC 11/19/15 Dr. Lema- HEART CATHETERIZATION ? HYSTERECTOMY HX 1982 PACEMAKER ROTATOR CUFF REPAIR right SOCIAL HISTORY Social History Tobacco Use Smoking status: Former Smoker Packs/day: 1.00 Years: 20.00 Pack years: 20.00 Types: Cigarettes Smokeless tobacco: Never Used Vaping Use Vaping Use: Never used Substance Use Topics Alcohol use: No Drug use: No FAMILY HISTORY Problem Relation Age of Onset Cancer Father Diabetes Mother Coronary Artery Disease Mother MA's Coronary Artery Disease Brother 2 brothers CABG Aneurysm Brother Heart Sister MA's, valve replaced Stroke Sister Ovarian cancer Sister Multiple Sclerosis Sister Hypertension Sister ALLERGIES Allergen Reactions Glatiramer Itching, Rash MEDICATIONS: spironolactone (ALDACTONE) 25 mg tablet Take 1 tablet by mouth once daily. losartan (COZAAR) 50 mg tablet Take 1 tablet by mouth once daily. magnesium oxide (MAGOX) 400 mg (241.3 mg magnesium) tablet Take 1 tablet by mouth twice daily. fenofibrate nanocrystallized (TRICOR) 145 mg tablet Take 1 tablet by mouth once daily. pravastatin (PRAVACHOL) 20 mg tablet Take 1 tablet by mouth daily at bedtime. esomeprazole (NEXIUM) 40 mg capsule Take 1 capsule by mouth daily before breakfast. 1/2 hr before meal. apixaban (ELIQUIS) 5 mg tab(s) Take 1 tablet by mouth twice daily. carvedilol (COREG) 25 mg tablet Take 0.5 tablets by mouth twice daily. dimethyl fumarate (TECFIDERA) [address] Take 1 capsule by mouth twice daily. SYMBICORT 160-4.5 mcg/actuation inhaler Inhale 2 Puffs as instructed twice daily as needed. gabapentin (NEURONTIN) 800 mg tablet Take 1 tablet by mouth four times daily. ALBUTEROL SULFATE HFA INHALATION Inhale as instructed. furosemide (LASIX) 40 mg tablet Take 40 mg by mouth once daily. Cholecalciferol, Vitamin D3, 25 mcg (1,000 unit) cap Take 1 capsule by mouth once daily. baclofen (LIORESAL) 20 mg tablet Take by mouth three times daily as needed. 1 in am, 1in afternoon and 2 at bedtime COMPOUNDED PRESCRIPTION One pair of shoes to fit over leg brace. Dx: G35; M79.2 fluticasone (FLONASE) 50 mcg/actuation nasal spray Use 2 Sprays in each nostril once daily. Rinse mouth after use. nitroglycerin sublingual (NITROQUICK) 0.4 mg SL tablet Dissolve 1 tablet under the tongue every 5 minutes as needed for Chest Pain. multivitamin (MULTIPLE VITAMINS) tablet Take 1 tablet by mouth once daily. Interferon Beta-1a (REBIF) 22 mcg/0.5 mL injection Inject 22 mcg subcutaneously. Indications: 3 inj. a week aspirin, enteric coated (ECOTRIN LOW STRENGTH) 81 mg EC tablet Take 81 mg by mouth once daily. Ferrous Sulfate (IRON) 325 mg (65 mg iron) tablet Take 325 mg by mouth daily with breakfast. REVIEW OF SYSTEMS: Review of Systems Review of system has some negative for chest pain, PND, palpitation, dizziness or syncope. Review of system is positive for dyspnea on exertion on less than routine activities, arthritis and trace leg swelling. PHYSICAL EXAMINATION: BP 141/65 Pulse 67 Resp 20 Ht 157.5 cm (5' 2 ) Wt 98.9 kg (218 lb) SpO2 99% BMI 39.87 kg/m Physical Exam Obese. No thyroid swelling. No Nicholes distention. Lungs: Clear, unlabored breathing at rest. Heart examination S1-S2 is regular. Grade 2/6 soft systolic murmur in left parasternal area. Pacemaker site and left subclavian region is clean without any tenderness. Abdomen: Soft and benign. Normal peristalsis. 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 Range of motion limited with history of multiple sclerosis. CARDIOVASCULAR MEDICINE TESTING: EKG done today shows sinus rhythm with a ventricular pacemaker rhythm with a nonspecific ST-T abnormalities. No significant change from prior EKG. PLAN AND RECOMMENDATIONS: Ms. Albright is a 70 year old female with known history of CAD, status post CABG, PAF, s/p dual-chamber pacemaker, is doing well. Cardiac mercer stable. Blood pressure is well controlled. Advised to continue current medical therapy. No any bleeding issues with Eliquis. Last blood work done at [facility] on 10/11/2021 hemoglobin 12.9 with normal platelet count 261,000 random blood glucose 109, CMP otherwise unremarkable triglyceride, 82 total cholesterol 148. Normal kidney function. Pacemaker device check today shows ATR burden less than 1% with 1 episode of A. fib lasting only 5 seconds. Normal device function. Advised to continue current medical therapy. Da Hobbs MD documented in this encounter [facility] 08-09-2021 History of Presen t illness Narrative Chief Complaint Follow up HPI Jenni Albright is a 70 year old female who presents here today for 6 month follow up. Here with her . Overall doing OK; no specific complaints Denies any bowel, Gi, or urinary concerns. GERD: Stable on Nexium 40 mg daily. Dyspnea: Uses Symbicort inhaler and follows with Dr. Jim Carbajal. PE & DVT: Taking Eliquis 5 mg BID. HTN & CAD & Lipid: no chest pains, dizziness, or SOB. Does not check BP at home. Taking Coreg 25 mg half pill BID, Aldactone 25 mg daily and Losartan 50 mg daily. Also taking Plavix 75 mg daily, Pravastatin 20 mg daily and Tricor 145 mg daily. Does not watch diet or exercise. Has a pacemakers, follows with Dr. Hobbs, [employer]. REBECCA: Uses CPAP every night, feels this is working well for her. MS: Follows with Neurologist in [place], Dr. Clemente. Getting Rebif injections weekly, Tecfidera 240 mg BID and Gabapentin 800 mg QID. No longer uses Baclofen. Past medical history, appointments, medications, allergies reviewed. 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 11/19/2015 CAD (coronary artery disease) 07/2013 non-STMI/CABG GERD (gastroesophageal reflux disease) hiatal hernia History of DVT (deep vein thrombosis) 09/14/2015 History of rectal polypectomy 07/2011 Hyperlipidemia Hypertension Iron deficiency anemia Multiple sclerosis (HCC) Neuropathic pain Legs>arms from MS REBECCA (obstructive sleep apnea) on CPAP Pacemaker Pulmonary embolism (HCC) 07/2013 during hospitalization for MA Vitamin D deficiency Previous Surgical History PAST SURGICAL HISTORY Procedure Laterality Date CABG, ARTERIAL, TWO 07/22/13 THURMAN to LAD and Dx CARPAL TUNNEL CATARACT EXTRACTION HX Right 03/23/2017 Dr. Das - [place] CATARACT EXTRACTION HX Left 04/16/2017 Dr. Das COLONOSCOPY 08/01/2011 5mm rectal polyp COLONOSCOPY 12/05/2015 rectal polyp (adenoma) and diverticulosis EGD 07/17/2011 sliding hiatal hernia ENDOSCOPY PROC 11/19/15 Dr. Lema- HEART CATHETERIZATION ? HYSTERECTOMY HX 1982 PACEMAKER ROTATOR CUFF REPAIR right Family History FAMILY HISTORY Problem Relation Age of Onset Cancer Father Diabetes Mother Coronary Artery Disease Mother MA's Coronary Artery Disease Brother 2 brothers CABG Aneurysm Brother Heart Sister MA's, valve replaced Stroke Sister Ovarian cancer Sister Multiple Sclerosis Sister Hypertension Sister Patient Allergies ALLERGIES Allergen Reactions Glatiramer Itching, Rash Current Medications Current Outpatient Medications on File Prior to Visit Medication Sig spironolactone (ALDACTONE) 25 mg tablet Take 1 tablet by mouth once daily. losartan (COZAAR) 50 mg tablet Take 1 tablet by mouth once daily. magnesium oxide (MAGOX) 400 mg (241.3 mg magnesium) tablet Take 1 tablet by mouth twice daily. fenofibrate nanocrystallized (TRICOR) 145 mg tablet Take 1 tablet by mouth once daily. pravastatin (PRAVACHOL) 20 mg tablet Take 1 tablet by mouth daily at bedtime. esomeprazole (NEXIUM) 40 mg capsule Take 1 capsule by mouth daily before breakfast. 1/2 hr before meal. apixaban (ELIQUIS) 5 mg tab(s) Take 1 tablet by mouth twice daily. carvedilol (COREG) 25 mg tablet Take 0.5 tablets by mouth twice daily. dimethyl fumarate (TECFIDERA) [address] Take 1 capsule by mouth twice daily. SYMBICORT 160-4.5 mcg/actuation inhaler Inhale 2 Puffs as instructed twice daily as needed. gabapentin (NEURONTIN) 800 mg tablet Take 1 tablet by mouth four times daily. ALBUTEROL SULFATE HFA INHALATION Inhale as instructed. furosemide (LASIX) 40 mg tablet Take 40 mg by mouth once daily. Cholecalciferol, Vitamin D3, 25 mcg (1,000 unit) cap Take 1 capsule by mouth once daily. baclofen (LIORESAL) 20 mg tablet Take by mouth three times daily as needed. 1 in am, 1in afternoon and 2 at bedtime COMPOUNDED PRESCRIPTION One pair of shoes to fit over leg brace. Dx: G35; M79.2 fluticasone (FLONASE) 50 mcg/actuation nasal spray Use 2 Sprays in each nostril once daily. Rinse mouth after use. nitroglycerin sublingual (NITROQUICK) 0.4 mg SL tablet Dissolve 1 tablet under the tongue every 5 minutes as needed for Chest Pain. multivitamin (MULTIPLE VITAMINS) tablet Take 1 tablet by mouth once daily. Interferon Beta-1a (REBIF) 22 mcg/0.5 mL injection Inject 22 mcg subcutaneously. Indications: 3 inj. a week aspirin, enteric coated (ECOTRIN LOW STRENGTH) 81 mg EC tablet Take 81 mg by mouth once daily. Ferrous Sulfate (IRON) 325 mg (65 mg iron) tablet Take 325 mg by mouth daily with breakfast. No current facility-administered medications on file prior to visit. Social History Social History Tobacco Use Smoking status: Former Smoker Packs/day: 1.00 Years: 20.00 Pack years: 20.00 Types: Cigarettes Smokeless tobacco: Never Used Vaping Use Vaping Use: Never used Substance Use Topics Alcohol use: No Drug use: No EXAM: There were no vitals taken for this visit. General Appearance: Well appearing, alert, in no acute distress, well-hydrated, well nourished. and Obese. Lungs: Lungs clear to auscultation. No wheezing, rhonchi, rales.. Heart: RRR without murmur, gallop, or rubs. No ectopy. Health Maintenance List DTAP,TDAP,TD(1 - Tdap) Never done SHINGRIX VACCINE(1 of 2) Never done BONE DENSITY Never done MAMMOGRAM due on 08/26/2015 DEPRESSION SCREENING due on 04/12/2019 COLORECTAL CANCER SCREENING due on 12/04/2020 ADVANCE DIRECTIVE DISCUSSION Never done ANNUAL PCP TEAM CHRONIC DISEASE VISIT due on 02/08/2022 BP CONTROLLED (<130/80) due on 02/08/2022 LDL CHOLESTEROL due on 07/29/2022 DIABETES SCREEN due on 07/29/2024 LIPID SCREEN due on 07/29/2026 INFLUENZA Completed HEPATITIS C SCREENING Completed PNEUMOVAX AGE 65 AND OVER WITH 5YR LOOKBACK Completed COVID-19 VACCINE Completed MENINGOCOCCAL CONJUGATE Aged Out Data reviewed Appointment on 07/29/2021 Component Date Value Protein, Total 07/29/2021 7.7 Albumin 07/29/2021 4.4 Calcium, Total 07/29/2021 11.1 (A) Bilirubin, Total 07/29/2021 0.2 Alkaline Phosphatase 07/29/2021 65 AST 07/29/2021 27 ALT 07/29/2021 30 Glucose 07/29/2021 107 (A) BUN 07/29/2021 22 (A) Creatinine 07/29/2021 0.71 Sodium 07/29/2021 138 Potassium 07/29/2021 4.6 Chloride 07/29/2021 105 CO2 07/29/2021 17 (A) Anion Gap 07/29/2021 16 Estimated Glomerular Baldomero* 07/29/2021 90 Cholesterol, Total 07/29/2021 143 Triglyceride 07/29/2021 122 HDL Cholesterol 07/29/2021 35 (A) Non HDL Cholesterol 07/29/2021 108 Fasting Time 07/29/2021 13 VLDL Cholesterol 07/29/2021 24 TC:HDL Ratio 07/29/2021 4.09 LDL Cholesterol 07/29/2021 84 LDL:HDL Ratio 07/29/2021 2.40 Hemoglobin A1C 07/29/2021 5.4 Estimated Average Glucose 07/29/2021 108 ASSESSMENT/PLAN: 1. Multiple sclerosis (HCC) - ICD9: 340, ICD10: G35 (primary diagnosis) Follow with Neuro 2. Hyperlipidemia, unspecified hyperlipidemia type - ICD9: 272.4, ICD10: E78.5 - COMP METABOLIC PANEL - LIPID PANEL BASIC 3. Coronary artery disease involving [place] coronary artery of [place] heart without angina pectoris - ICD9: 414.01, ICD10: I25.10 4. Essential hypertension - ICD9: 401.9, ICD10: I10 - good control - Continue current medication(s) - Recommended regular aerobic exercise. - Recommend home blood pressure monitoring, to bring results in on next visit - Goal of BP <140/90 - COMP METABOLIC PANEL - LIPID PANEL BASIC - CBC 5. Elevated glucose - ICD9: 790.29, ICD10: R73.09 Stable - COMP METABOLIC PANEL - LIPID PANEL BASIC - HGB A1C Follow up in 6 months with labs prior Medical Decision Making: Problems: Moderate: 2+ stable chronic illnesses Data: Unique test result(s) reviewed: 3+ Unique test(s) ordered: 3+ Risk: Moderate: Drug management Medical Decision Making Level: 4 - Moderate Edmundo Rodriguez MD documented in this encounter [facility] 07-04-2021 Miscellaneous Notes The following approved medication requests have been transmitted electronically. Pending Prescriptions Disp Refills SPIRONOLACTONE 25 MG TABLET 90 tablet 3 Sig: Take 1 tablet by mouth once daily. WILBER: No Deion Rankin APRN.CNP Patient has been identified by name and date of : Yes Pending Prescriptions Disp Refills SPIRONOLACTONE 25 MG TABLET 90 tablet 3 Sig: Take 1 tablet by mouth once daily. WILBER: No MARIANO-02/08/21 Labs-10/01/20 NOV-08/09/21 med filled 04/02/20 RX INSTRUCTIONS: Patient aware RX will be sent to pharmacy. No need to notify patient. [place] Pss documented in this encounter [facility] 08-31-2020 Note [facility] Ce josh Floyd 08-30-2020 Note Physical Therapy Inpatient Evaluation Medical Diagnosis: dyspnea, tachypnea, CAD Therapy Diagnosis: Rank Code Description 1 R26.2 Difficulty in walking, not elsewhere classified 2 R26.81 Unsteadiness on feet Demographics: Age: 69Y Gender: Female Primary Language: Luxembourger Preferred Language: Luxembourger Referring Service/Team: Medicine Past Medical History: Hypertension, multiple sclerosis, CAD, hyperlipidemia, acid reflux, pericardial effusion, TIAs, DVT in the leg, sleep apnea Past Surgical History Cardiac bypass x2, carpal tunnel repair, hysterectomy, appendectomy, pacemaker, IVC filter for blood clots History of Present Illness: Date of Onset: 08/29/20 Additional Information: This is a pleasant 69-year-old obese female patient of , with history of multiple sclerosis, CAD status post CABG, history of pacemaker, DVT status post IVC filter, who presents to [facility] with shortness of breath over the past few days worsening in nature, orthopnea, dyspnea at rest. Patient was just admitted at [facility] THE END OF JULY for chest pain work-up and had an echo and stress done at that time which showed no acute findings. Patient was at her quality assurance follow-up, and they recommended she come to the ER for evaluation due to her dyspnea and tachypnea. Patient was seen and evaluated in the ER and remains tachypneic, appears short of breath during conversation. She had a CAT scan done which was negative for PE or pleural effusions. BNP T was normal. Initial troponin was normal. EKG showed pacing. Patient does complain of epigastric pain, we did request lipase and liver profile. States worse with breathing. We will also have her pacemaker interrogated. She will be admitted with a consult to cardiology as she may require further cardiac work-up including heart cath. Defer to cardiology. Patient denies any fever, chills, nausea or vomiting. She was placed on 2 L of oxygen for comfort. copied from [facility] Date of Admission: 08/29/2020 5:00:00 PM Rehabilitation Precautions/Restrictions: fall risk [facility] PATIENT NAME: JENNI ALBRIGHT [address] [facility] [address] MEDICAL REC #: [id number] [place] [address] ADMIT DATE: 08/29/20 SERVICE DATE: 08/30/20 Physical Therapy Assessment Report ATTENDING PHY: Yesenia Hwang DO Imaging/Testing Results from Chart: Chest/thorax CTA - No evidence of pulmonary artery embolism. No acute process within the chest. Chest x-ray - No acute process. SUBJECTIVE Prior Level of Functioning: Indoor Mobility: Patient completed the activities by him/herself, with or without an assistive device, with no assistance from a helper. Stairs: Patient completed the activities by him/herself, with or without an assistive device, with no assistance from a helper. Pt reports independence with all activity prior to admission. She reports ambulating with a rollator for short distance and uses a w/c for long distances. Prior Device Use: Performance GG110. Prior Device Manual wheelchair Yes Motorized wheelchair Yes Walker Yes Patient/Caregiver Goals: Patient's functional goals: go home Pain: Patient currently has pain. Location: MS pain Type: Chronic Quality: Aching. Pain Scale: Visual Analog (VAS). Patient reports a pain level of 7 out of 10. Patient's acceptable level of pain 0 out of 10. Interferes with physical activity. Pain is alleviated by: rest Pain is exacerbated by: mobility Interventions: Repositioned patient. Home Environment: Patient lives with , dtr, and grandson , who is unable to assist patient at discharge. Patient lives in a single family home. Home is single level. Patient is not required to manage stairs within the home. First floor full bathroom setup available. No stairs to enter the home. There is a ramp available for home entry. Equipment Owned: Rollator., Shower chair., Manual wheelchair., Power wheelchair. Social History: Marital Status: M Children: 3 Reside: one lives with her, 1 in [place] and 1 in [place] Employment Status: NOT WORKING Recreational Activities/Hobbies: MARIE, computer games, traveling [facility] PATIENT NAME: JENNI ALBRIGHT [address] [facility] [address] MEDICAL REC #: [id number] [place] [address] ADMIT DATE: 08/29/20 SERVICE DATE: 08/30/20 Physical Therapy Assessment Report ATTENDING PHY: Yesenia Hwang DO OBJECTIVE Cognitive Screen Responsiveness: Alert. Orientation: Oriented to person, place, time, and situation. Following Commands: Patient is able to follow 3-step commands. Range of Motion Upper Extremity: Grossly within functional limits Lower Extremity: Grossly within functional limits Strength Upper Extremity: Grossly within func (more content not included)... [facility] [place] [facility] Diagnosis Multiple sclerosis (HCC)- Primary Multiple sclerosis Hyperlipidemia, unspecified hyperlipidemia type Coronary artery disease involving [place] coronary artery of [place] heart without angina pectoris Essential hypertension Unspecified essential hypertension Elevated glucose Other abnormal glucose [facility] Diagnosis Encounter for screening mammogram for breast cancer [facility] Diagnosis Coronary artery disease involving [place] coronary artery of [place] heart without angina pectoris- Primary PAF (paroxysmal atrial fibrillation) (HCC) Atrial fibrillation [facility] Diagnosis Multiple sclerosis (HCC) Multiple sclerosis [facility] Diagnosis Bacterial pneumonia- Primary Bacterial pneumonia, unspecified [facility] Diagnosis Bacterial pneumonia- Primary Bacterial pneumonia, unspecified [facility] Diagnosis Acute cough- Primary [facility] Diagnosis Congestive heart failure, unspecified HF chronicity, unspecified heart failure type (HCC)- Primary [facility] Diagnosis Coronary artery disease involving [place] coronary artery of [place] heart without angina pectoris Medication refill Issue of repeat prescriptions Hyperlipidemia, unspecified hyperlipidemia type Gastroesophageal reflux disease, unspecified whether esophagitis present [facility] Diagnosis Essential hypertension Unspecified essential hypertension Coronary artery disease involving [place] coronary artery of [place] heart without angina pectoris documented in this encounter [facility] note* Diagnosis Essential hypertension- Primary Unspecified essential hypertension Coronary artery disease involving [place] coronary artery of [place] heart without angina pectoris Elevated glucose Other abnormal glucose Hyperlipidemia, unspecified hyperlipidemia type History of DVT (deep vein thrombosis) Personal history of venous thrombosis and embolism Gastroesophageal reflux disease, unspecified whether esophagitis present Multiple sclerosis (HCC) Multiple sclerosis REBECCA (obstructive sleep apnea) Obstructive sleep apnea (adult) (pediatric) Spastic hemiplegia, unspecified etiology, unspecified laterality ([facility]) Morbid obesity (HCC) Morbid obesity Congestive heart failure, unspecified HF chronicity, unspecified heart failure type ([facility]) PAF (paroxysmal atrial fibrillation) ([facility]) Atrial fibrillation Other pulmonary embolism without acute cor pulmonale, unspecified chronicity ([facility]) Left elbow tendonitis documented in this encounter [facility] note* Diagnosis Hyperlipidemia, unspecified hyperlipidemia type documented in this encounter [facility] note* Diagnosis Coronary artery disease involving [place] coronary artery of [place] heart without angina pectoris- Primary Cardiac pacemaker Cardiac pacemaker in situ Essential hypertension Unspecified essential hypertension Hyperlipidemia, unspecified hyperlipidemia type Congestive heart failure, unspecified HF chronicity, unspecified heart failure type (HCC) REBECCA (obstructive sleep apnea) Obstructive sleep apnea (adult) (pediatric) Biventricular implantable cardioverter-defibrillator (ICD) in situ Obesity, Class III, BMI >= 40 Morbid obesity [facility]* Diagnosis Congestive heart failure, unspecified HF chronicity, unspecified heart failure type (HCC)- Primary documented in this encounter [facility] note* Diagnosis Essential hypertension- Primary Unspecified essential hypertension Coronary artery disease involving [place] coronary artery of [place] heart without angina pectoris Congestive heart failure, unspecified HF chronicity, unspecified heart failure type (HCC) History of DVT (deep vein thrombosis) Personal history of venous thrombosis and embolism Hyperlipidemia, unspecified hyperlipidemia type Multiple sclerosis (HCC) Multiple sclerosis REBECCA (obstructive sleep apnea) Obstructive sleep apnea (adult) (pediatric) Encounter for immunization Need for other specified prophylactic vaccination against single bacterial disease Elevated glucose Other abnormal glucose Impacted cerumen of left ear Impacted cerumen [facility] this [facility] Diagnosis Acute pain of left shoulder- Primary documented in this encounter [facility] for referral (narrative)* Diagnostic Procedure Only (Routine) - Pending Review Specialty Diagnoses / Procedures Referred By Contac t Referred To Contact [facility]AGING Diagnoses Encounter for screening mammogram for breast cancer Procedures TIRSO SCREENING SCREENING MAMMOGRAPHY BI 2-VIEW BREAST INC CAD Edmundo Rodriguez MD [address] [place] [address] [facility] [address] [place] [phone] Referral ID Status Reason Start Date Expiration Date Visits Requested Visits Authorized [id number] Pending Review Auto-Generat ed Referral 10/09/2021 11/08/2022 1 1 T [facility] for referral (narrative)* Outpatient Procedure (Routine) - Pending Review Specialty Diagnoses / Procedures Referred By Contac t Referred To [facility] Diagnoses Coronary artery disease involving [place] coronary artery of [place] heart without angina pectoris PAF (paroxysmal atrial fibrillation) (HCC) Procedures ECG COMPLETE ECG ROUTINE ECG W/LEAST 12 LDS W/I&R Da Hobbs MD [address] [address] [facility] [address] [place] [id number] Referral ID Status Reason Start Date Expiration Date Visits Requested Visits Authorized [id number] Pending Review Auto-Generat ed Referral 10/22/2021 10/22/2022 1 1 T [facility] for referral (narrative)* Diagnostic Procedure Only (Routine) - Pending Review Specialty Diagnoses / Procedures [facility] Diagnoses Acute pain of left shoulder Procedures XR SHOULDER GENERAL 3V OR MORE AP/TRUE AP/OTHER LEFT RADEX SHOULDER COMPLETE MINIMUM 2 VIEWS Ej Rodriguez V, DO [address] [place] [address] [place] [address] Referral ID Status Reason Start Date Expiration Date Visits Requested Visits Authorized [id number] Pending Review Auto-Generat ed Referral 3 04/28/2024 1 1 [facility] Summary Purpose Family History No Family History Records FoundNo Family History Records FoundNo Family History Records FoundNo Family History Records Found Advance Directives No Advanced Directives Records FoundNo Advanced Directives Records FoundNo Advanced Directives Records FoundNo Advanced Directives Records Found Additional Source Comments INFORMATION SOURCE (unrecogn ized section and content) DATE CREATED AUTHOR AUTHOR'S ORGANIZ ATION 06/04/2021 [facility] [place] [facility] DATE CREATED AUTHOR AUTHOR'S ORGANIZ ATION 04/17/2023 [facility] DATE CREATED AUTHOR AUTHOR'S ORGANIZ ATION 05/07/2023 [facility] Source Comments (unrecognize d section and content) In the event this informatio n is protected by the Federal Confidentiality of Alcohol and Drug Abuse Patient Records regulations: The Federal rules restrict any use of the information to criminally investigate or prosecute any alcohol or drug abuse patient.[facility] the event this information is protected by the Federal Confidentiality of Alcohol and Drug Abuse Patient Records regulations: The Federal rules restrict any use of the information to criminally investigate or prosecute any alcohol or drug abuse patient.[facility] Center[facility] the event this information is protected by the Federal Confidentiality of Alcohol and Drug Abuse Patient Records regulations: The Federal rules restrict any use of the information to criminally investigate or prosecute any alcohol or drug abuse patient.[facility] Center[facility] the event this information is protected by the Federal Confidentiality of Alcohol and Drug Abuse Patient Records regulations: The Federal rules restrict any use of the information to criminally investigate or prosecute any alcohol or drug abuse patient.[facility] Center[facility] the event this information is protected by the Federal Confidentiality of Alcohol and Drug Abuse Patient Records regulations: The Federal rules restrict any use of the information to criminally investigate or prosecute any alcohol or drug abuse patient.[facility] CenterIn the event this information is protected by the Federal Confidentiality of Alcohol and Drug Abuse Patient Records regulations: The Federal rules restrict any use of the information to criminally investigate or prosecute any alcohol or drug abuse patient.[facility] CenterIn the event this information is protected by the Federal Confidentiality of Alcohol and Drug Abuse Patient Records regulations: The Federal rules restrict any use of the information to criminally investigate or prosecute any alcohol or drug abuse patient.[facility] CenterIn the event this information is protected by the Federal Confidentiality of Alcohol and Drug Abuse Patient Records regulations: The Federal rules restrict any use of the information to criminally investigate or prosecute any alcohol or drug abuse patient.[facility] CenterIn the event this information is protected by the Federal Confidentiality of Alcohol and Drug Abuse Patient Records regulations: The Federal rules restrict any use of the information to criminally investigate or prosecute any alcohol or drug abuse patient.[facility] CenterIn the event this information is protected by the Federal Confidentiality of Alcohol and Drug Abuse Patient Records regulations: The Federal rules restrict any use of the information to criminally investigate or prosecute any alcohol or drug abuse patient.[facility] CenterIn the event this information is protected by the Federal Confidentiality of Alcohol and Drug Abuse Patient Records regulations: The Federal rules restrict any use of the information to criminally investigate or prosecute any alcohol or drug abuse patient.[facility] CenterIn the event this information is protected by the Federal Confidentiality of Alcohol and Drug Abuse Patient Records regulations: The Federal rules restrict any use of the information to criminally investigate or prosecute any alcohol or drug abuse patient.[facility] CenterIn the event this information is protected by the Federal Confidentiality of Alcohol and Drug Abuse Patient Records regulations: The Federal rules restrict any use of the information to criminally investigate or prosecute any alcohol or drug abuse patient.[facility] CenterIn the event this information is protected by the Federal Confidentiality of Alcohol and Drug Abuse Patient Records regulations: The Federal rules restrict any use of the information to criminally investigate or prosecute any alcohol or drug abuse patient.[facility] CenterIn the event this information is protected by the Federal Confidentiality of Alcohol and Drug Abuse Patient Records regulations: The Federal rules restrict any use of the information to criminally investigate or prosecute any alcohol or drug abuse patient.[facility] CenterIn the event this information is protected by the Federal Confidentiality of Alcohol and Drug Abuse Patient Records regulations: The Federal rules restrict any use of the information to criminally investigate or prosecute any alcohol or drug abuse patient.[facility] CenterIn the event this information is protected by the Federal Confidentiality of Alcohol and Drug Abuse Patient Records regulations: The Federal rules restrict any use of the information to criminally investigate or prosecute any alcohol or drug abuse patient.[facility] CenterIn the event this information is protected by the Federal Confidentiality of Alcohol and Drug Abuse Patient Records regulations: The Federal rules restrict any use of the information to criminally investigate or prosecute any alcohol or drug abuse patient.[facility] CenterIn the event this information is protected by the Federal Confidentiality of Alcohol and Drug Abuse Patient Records regulations: The Federal rules restrict any use of the information to criminally investigate or prosecute any alcohol or drug abuse patient.[facility] CenterIn the event this information is protected by the Federal Confidentiality of Alcohol and Drug Abuse Patient Records regulations: The Federal rules restrict any use of the information to criminally investigate or prosecute any alcohol or drug abuse patient.[facility] CenterIn the event this information is protected by the Federal Confidentiality of Alcohol and Drug Abuse Patient Records regulations: The Federal rules restrict any use of the information to criminally investigate or prosecute any alcohol or drug abuse patient.[facility] CenterIn the event this information is protected by the Federal Confidentiality of Alcohol and Drug Abuse Patient Records regulations: The Federal rules restrict any use of the information to criminally investigate or prosecute any alcohol or drug abuse patient.[facility] CenterIn the event this information is protected by the Federal Confidentiality of Alcohol and Drug Abuse Patient Records regulations: The Federal rules restrict any use of the information to criminally investigate or prosecute any alcohol or drug abuse patient.[facility] CenterIn the event this information is protected by the Federal Confidentiality of Alcohol and Drug Abuse Patient Records regulations: The Federal rules restrict any use of the information to criminally investigate or prosecute any alcohol or drug abuse patient.[facility] CenterIn the event this information is protected by the Federal Confidentiality of Alcohol and Drug Abuse Patient Records regulations: The Federal rules restrict any use of the information to criminally investigate or prosecute any alcohol or drug abuse patient.[facility] CenterIn the event this information is protected by the Federal Confidentiality of Alcohol and Drug Abuse Patient Records regulations: The Federal rules restrict any use of the information to criminally investigate or prosecute any alcohol or drug abuse patient.[facility] CenterIn the event this information is protected by the Federal Confidentiality of Alcohol and Drug Abuse Patient Records regulations: The Federal rules restrict any use of the information to criminally investigate or prosecute any alcohol or drug abuse patient.[facility] CenterIn the event this information is protected by the Federal Confidentiality of Alcohol and Drug Abuse Patient Records regulations: The Federal rules restrict any use of the information to criminally investigate or prosecute any alcohol or drug abuse patient.[facility] CenterIn the event this information is protected by the Federal Confidentiality of Alcohol and Drug Abuse Patient Records regulations: The Federal rules restrict any use of the information to criminally investigate or prosecute any alcohol or drug abuse patient.[facility] Reason for Visit (unrecogniz ed section and content) Reason Comments 6 Month Exam Reason Comments Follow Up 6 month follow up wi th device check Specialty Diagnoses / Procedures Referred By Meron swenson Referred To Contact Cardiology / CARDIOLOGY Diagnoses Follow-up exam 6 month fup with device check R/S from 05/06 DR HOBBS out Procedures OFFICE/OUTPATIENT ESTABLISHED HIGH MDM 40-54 MIN EST PATIENT Da Hobbs MD [address] [facility] [address] [facility] [address] [place] [address] Da Hobbs MD [address] [facility] [address] [place] [address] Referral ID Status Reason Start Date Expiration Date Visits Re quested Visits Authorized [id number] Closed 10/11/2021 04/12/2022 1 1 Reason Comments Lab Technologist - Other Reason Comments Patient Request Reason Comments external document Reason Onset Date Comments Refill Request 12/19/2021 Reason Comments Opened In Error Reason Comments Gabapentin form Reason Comments Medication Problem Forms Reason Comments Review of Statin dose change Reason Comments Cough X 1 month- cough pro ductive with yellow/green tinged phlegm. Some head congestion in the am. Reason Comments Results Chest Xray Reason Comments Patient Update Patient Question Reason Comments Follow Up Device check. Reason Comments Pt thought device check was at 12noon Reason Onset Date Comments Refill Request 05/16/2022 Reason Onset Date Comments Refill Request 06/27/2022 Reason Comments Cough Reason Comments Patient Update Reason Comments F/U 6 Month Reason Comments Appointment Reason Comments Question about statin Reason Comments Follow Up 1 year Specialty Diagnoses / Procedures Referred By Meron swenson Referred To Contact Cardiology / CARDIOLOGY Diagnoses Heart failure, unspecified 1 year return office visit Procedures OFFICE/OUTPATIENT NEW HIGH MDM 60-74 MINUTES EST PATIENT Self Da Hobbs MD [address] [facility] [place] [address] Referral ID Status Reason Start Date Expiration Date Visits Requested Visits Authorized [id number] Authorized OON/Self Pay Override 04/13/2022 04/12/2023 99 99 Reason Comments Follow Up Reason Comments Patient Question Care Teams (unrecognized sec tion and content) [employer]ace Tender Relationship Specialty Start Date End Date Edmundo Rodriguez MD [address] [place] [address] PCP - General Family Practice 02/06/15 Liang Hanna MD Neurology 10/08/17 Da Hobbs MD [address] [address] Cardiology 10/08/17 Kimi Morris MD Neurology 10/08/17 Blade [employer] Furnace Tender Relationship Specialty Start Date End Date Edmundo Rodriguez MD [address] [place] [address] PCP - General Family Practice 02/06/15 Liang Hanna MD Neurology 10/08/17 Da Hobbs MD [address] [address] Cardiology 10/08/17 Kimi Morris MD Neurology 10/08/17 Blade Bender Furnace Tender Relationship Specialty Start Date End Date Edmundo Rodriguez MD [address] [place] [address] PCP - General Family Practice 02/06/15 Liang Hanna MD Neurology 10/08/17 Da Hobbs MD [address] [address] Cardiology 10/08/17 Kimi Morris MD Neurology 10/08/17 Blade Bender Furnace Tender Relationship Specialty Start Date End Date Edmundo Rodriguez MD [address] [place] [address] PCP - General Family Practice 02/06/15 Liang Hanna MD Neurology 10/08/17 Da Hobbs MD [address] [place] [address] Cardiology 10/08/17 Kimi Morris MD Neurology 10/08/17 Blade Bender Furnace Tender Relationship Specialty Start Date End Date Edmundo Rodriguez MD [address] [place] [address] PCP - General Family Practice 02/06/15 Liang Hanna MD Neurology 10/08/17 Da Hobbs MD [address] [place] [address] Cardiology 10/08/17 Kimi Morris DO Neurology 10/08/17 Blade Bender Furnace Tender Relationship Specialty Start Date End Date Edmundo Rodriguez MD [address] [place] [address] PCP - General Family Practice 02/06/15 Liang Hanna MD Neurology 10/08/17 Da Hobbs MD [address] [address] Cardiology 10/08/17 Kimi Morris DO Neurology 10/08/17 Blade Bender Furnace Tender Relationship Specialty Start Date End Date Edmundo Rodriguez MD [address] [place] [address] PCP - General Family Medicine 02/06/15 Liang Hanna MD Neurology 10/08/17 Da Hobbs MD [address] [address] Cardiology 10/08/17 Kimi Morris DO Neurology 10/08/17 Blade Bender Furnace Tender Relationship Specialty Start Date End Date Edmundo Rodriguez MD [address] [place] [address] PCP - General Family Medicine 02/06/15 Liang Hanna MD Neurology 10/08/17 Da Hobbs MD [address] [address] Cardiology 10/08/17 Kimi Morris DO Neurology 10/08/17 Blade Bender Furnace Tender Relationship Specialty Start Date End Date Edmundo Rodriguez MD [address] [place] [address] PCP - General Family Medicine 02/06/15 Liang Hanna MD Neurology 10/08/17 Da Hobbs MD [address] [place] [address] Cardiology 10/08/17 Kimi Morris DO Neurology 10/08/17 Blade Bender Furnace Tender Relationship Specialty Start Date End Date Edmundo Rodriguez MD [address] [place] [address] PCP - General Family Medicine 02/06/15 Liang Hanna MD Neurology 10/08/17 Da Hobbs MD [address] [place] [address] Cardiology 10/08/17 Kimi Morris DO Neurology 10/08/17 Blade Bender Furnace Tender Relationship Specialty Start Date End Date Edmundo Rodriguez MD [address] [place] [address] PCP - General Family Medicine 02/06/15 Liang Hanna MD [address] [place] [address] Neurology 10/08/17 Da Hobbs MD [address] [place] [address] Cardiology 10/08/17 Kimi Morris DO [address] [place] [address] Neurology 10/08/17 Blade Bender Furnace Tender Relationship Specialty Start Date End Date Edmundo Rodriguez MD [address] [place] [address] PCP - General Family Medicine 02/06/15 Liang Hanna MD [address] [place] [address] Neurology 10/08/17 Da Hobbs MD [address] [address] Cardiology 10/08/17 Kimi Morris, DO [address] [address] Neurology 10/08/17 Blade Bender Furnace Tender Relationship Specialty Start Date End Date Edmundo Rodriguez MD [address] [place] [address] PCP - General Family Medicine 02/06/15 Liang Hanna MD [address] [place] [address] Neurology 10/08/17 Da Hobbs MD [address] [address] Cardiology 10/08/17 Kimi Morris, [address] [address] Neurology 10/08/17 Blade Bender Furnace Tender Relationship Specialty Start Date End Date Edmundo Rodriguez MD [address] [place] [address] PCP - General Family Medicine 02/06/15 Liang Hanna MD [address] [place] [address] Neurology 10/08/17 Da Hobbs MD [address] [address] Cardiology 10/08/17 Kimi Morris, [address] [address] Neurology 10/08/17 Blade Bender Furnace Tender Relationship Specialty Start Date End Date Edmundo Rodriguez MD [address] [place] [address] PCP - General Family Medicine 02/06/15 Liang Hanna MD [address] [place] [address] Neurology 10/08/17 Da Hobbs MD [address] [place] [address] Cardiology 10/08/17 Kimi Morris, [address] [address] Neurology 10/08/17 Blade Bender Furnace Tender Relationship Specialty Start Date End Date Edmundo Rodriguez MD [address] [place] [address] PCP - General Family Medicine 02/06/15 Liang Hanna MD [address] [place] [address] Neurology 10/08/17 Da Hobbs MD [address] [address] Cardiology 10/08/17 Kimi Morris, [address] [place] [address] Neurology 10/08/17 Blade Bender Furnace Tender Relationship Specialty Start Date End Date Edumndo Rodriguez MD [address] [place] [address] PCP - General Family Medicine 02/06/15 Liang Hanna MD [address] [place] [address] Neurology 10/08/17 Da Hobbs MD [address] [place] [address] Cardiology 10/08/17 Kimi Morris, DO [address] [facility] [address] [place] [address] Neurology 10/08/17 Blade Bender Furnace Tender Relationship Specialty Start Date End Date Edmundo Rodrigeuz MD [address] [place] [address] PCP - General Family Medicine 02/06/15 Liang Hanna MD [address] [place] [address] Neurology 10/08/17 Da Hobbs MD [address] [address] Cardiology 10/08/17 Kimi Morris, DO [address] [address] Neurology 10/08/17 Blade Bender Furnace Tender Relationship Specialty Start Date End Date Edmundo Rodriguez MD [address] [place] [address] PCP - General Family Medicine 02/06/15 Liang Hanna MD [address] [place] [address] Neurology 10/08/17 Da Hobbs MD [address] [place] [address] Cardiology 10/08/17 Kimi Morris, [address] [place] [address] Neurology 10/08/17 Blade Bender Furnace Tender Relationship Specialty Start Date End Date Edmundo Rodriguez MD [address] [place] [address] PCP - General Family Medicine 02/06/15 Liang Hanna MD [address] [place] [address] Neurology 10/08/17 Da Hobbs MD [address] [address] Cardiology 10/08/17 Kimi Morris DO [address] [address] Neurology 10/08/17 Blade Bender Furnace Tender Relationship Specialty Start Date End Date Edmundo Rodriguez MD [address] [place] [address] PCP - General Family Medicine 02/06/15 Liang Hanna MD [address] [place] [address] Neurology 10/08/17 Da Hobbs MD [address] [address] Cardiology 10/08/17 Kimi Morris DO [address] [address] Neurology 10/08/17 Blade Bender Furnace Tender Relationship Specialty Start Date End Date Edmundo Rodriguez MD [address] [place] [address] PCP - General Family Medicine 02/06/15 Liang Hanna MD [address] [place] [address] Neurology 10/08/17 Da Hobbs MD [address] [id number] Cardiology 10/08/17 Kimi Morris DO [facility] [address] Neurology 10/08/17 Blade Bender Furnace Tender Relationship Specialty Start Date End Date Edmundo Rodriguez MD [address] [place] [address] PCP - General Family Medicine 02/06/15 Liang Hanna MD [address] [place] [address] Neurology 10/08/17 Da Hobbs MD [address] [address] Cardiology 10/08/17 Kimi Morris DO [address] [address] Neurology 10/08/17 Blade Bender Furnace Tender Relationship Specialty Start Date End Date Edmundo Rodriguez MD [address] [place] [address] PCP - General Family Medicine 02/06/15 Liang Hanna MD [address] [place] [address] Neurology 10/08/17 Da Hobbs MD [address] [address] Cardiology 10/08/17 Kimi Morris DO [address] [address] Neurology 10/08/17 Blade Bender Furnace Tender Relationship Specialty Start Date End Date Edmundo Rodriguez MD [address] [place] [address] PCP - General Family Medicine 02/06/15 Liang Hanna MD [address] [place] [address] Neurology 10/08/17 Da Hobbs MD [address] [address] Cardiology 10/08/17 Kimi Morris DO [address] [address] Neurology 10/08/17 FOR RECORDS PERTAINING TO PATIENTS WHO ARE OR HAVE BEEN ENROLLED IN A CHEMICAL DEPENDENCY/SUBSTANCEABUSE PROGRAM, SOME INFORMATION MAY BE OMITTED. This clinical summary was aggregated from multiple sources. Caution should be exercised in using it in the provision of clinical care. This summary normalizes information from multiple sources, and as a consequence, information in this document may materially change the coding, format and clinical context of patient data. In addition, data may be omitted in some cases. CLINICAL DECISIONS SHOULD BE BASED ON THE PRIMARY CLINICAL RECORDS. [facility]. provides no warranty or guarantee of the accuracy or completeness of information in this document.
[2023-05-08] MEDS: Lactated Ringers 1,000 ML 15 ML IV (07:57)
--- NOTE | 2023-05-08 08:58 | RAD_ITS ---
STUDY: X-RAY - RIGHT FOOT CLINICAL: Female, 72 years old. PAIN TECHNIQUE: 3 view(s) of the foot. COMPARISON: None. FINDINGS: . Screw transfixes the interphalangeal joint great toe. 6 minutes 29 seconds fluoroscopy time and 33.8551 cGy sq cm RAD/Foot 2 Views IMPRESSION: Status post fixation first interphalangeal joint. Electronically Signed: Phill Hernandez MD at 20:17 EST ,
[2023-05-08] MEDS: Cefazolin 2 GM in 0.9% Normal Saline (100mL Bag) 100 ML IV (09:08)
[2023-05-08] MEDS: Bupivacaine Mpf 0.5% 30 ML VIAL (09:35)
--- NOTE | 2023-05-08 11:38 | OP.PCM_ITS ---
Problems Associated Problem List Diagnoses (1) Other hammer toe(s) (acquired), right foot: (2) Contracture, right foot: (3) Hallux malleus of right foot: Report of Operation Date of Procedure: 05/08/23 Pre-Operative Diagnosis: 1. Hammertoes, digits 2, 3, 4, right foot 2. Hallux malleus, right foot 3. Contracture of foot, right Post-Operative Diagnosis: 1. Hammertoes, digits 2, 3, 4, right foot 2. Hallux malleus, right foot 3. Contracture of foot, right Surgery/Procedure Performed:: 1. Open flexor tenotomy's, digits 1, 2, 3, 4 and 5, right foot 2. Derotational arthroplasty, fifth digit, right foot 3. PIPJ arthroplastys, digits, 2, 3 and 4, right foot 4. IPJ arthroplasty, right hallux Description of Surgical Findings:: 1. Once the 5.0 mm headless compression screw was placed across the IPJ of the right hallux range of motion testing was done to ensure stability of the hardware and bone. However, there showed evidence of toggling and movement of the orthopedic hardware secondary to the patient's osteoarthritis and osteopenia. Ultimately decision was made in the operating room to remove the orthopedic hardware and for the patient to just move forward with an IPJ arthroplasty. Ultimately the hardware was removed to prevent any backing out or failure of the hardware as well as to decrease the likelihood of infection and amputation of the right great toe. 2. Evidence of osteoporotic bone was appreciated to all digits. 3. After arthroplasties and flexor tenotomy's there showed evidence of straight lesser digits. 4. After derotational arthroplasty to the fifth digit there showed evidence of a more rectus lesser digit. Surgeon: Brandon Franco music therapist [employer]: Ailyn Burrows Type of Anesthesia: General and Local Anesthesiologist: Tarik Ruff Special Medications: Per anesthesia Specimen's removed: None Drains: None Estimated Blood Loss (mL): 30 mL Fluids Replaced: Per anesthesia Description of Procedure: Indications For Operation: Mrs. Albright is a 72-year-old female who was admitted to [facility] for elective surgery consisting of hammertoe corrective surgery to the right foot. Patient has a long history of multiple sclerosis and osteopenia. She is currently well-known to me in office and uses a AFO for ambulating due to her weakness secondary to multiple sclerosis in the right lower extremity. After many consultations the patient has shown pain with shoe gear to the lesser digits of the right foot. The patient had undergone surgical consultation with all risk and benefits explained to the patient in great detail. She showed understanding of this. The patient also had non-invasive arterial studies that showed a right MICHAEL of 0.93. Due to contracture of the lesser digits of the right foot it had deemed necessary to take the patient to the operating room to do the procedure as described above to help reduce and relieve her constant pain to the right foot. The nature of the problem, anticipated procedures, postop recovery/convalences and risk/complications include but not limited to amputation to lesser digits, infection, wound healing complications, hypertrophic scarring, numbness, tingling, chronic pain, CRPS, over and under correction, recurrence of deformity, DVT and or PE and the need for further surgery have been discussed in great detail with the patient. All questions have been answered to the patient's satisfaction. There are no guarantees given as to the outcome of the procedure. Description of Procedure: Under mild sedation, the patient was brought into the operating room and placed on the operating table in supine position. Once the patient was under general anesthesia endotracheal tube, the right lower extremity was blocked using approximately 20 cc 0.5% Marcaine plain. Next, a well-padded thigh tourniquet was applied to the right lower extremity. Next, the right lower extremity was prepped and draped in normal aseptic manner. Next, a timeout was then undertaken verifying the correct patient, extremity, visibility of preoperative markings, availability of the equipment. Procedure #1, open flexor tenotomy's digits 1, 2, 3, 4 and 5, right foot Next, attention was directed to the right lower extremity. Using a 4 inch Esmarch, right lower extremity was exsanguinated and elevated to 60 degrees for 1 minute. The right thigh tourniquet was inflated to 275 mmHg. Procedure #1 was performed on all digits 1, 2, 3, 4 and 5 of the right foot the same. Next, attention was directed to the plantar aspect of all the lesser digits 1 through 5 to the right foot. Using a #69 blade, open flexor tenotomy was performed at the level of the plantar PIPJ of all digits 1 through 5 of the right foot. The long flexor tendon was identified on all digits and released. Forced dorsiflexion was performed on all digits and noticeable release of the long flexor tendons was noted. After release the digits 1 through 5 showed evidence of being less contracted and in a more rectus fashion. Procedure #2, derotational arthroplasty fifth digit, right foot Next, attention was directed to the right fifth digit. A sterile skin marker was used to map out the incision in a oblique fashion from distal medial to proximal lateral over the fifth digit PIPJ. Using a #15 blade the oblique incision was carried out without incident. Using pickups the oblique skin island was removed and passed the back table to be discarded. The long extensor tendon was identified and released followed by the lateral collateral ligaments of the PIPJ of the fifth digit. Using the MIS bur the head of the proximal phalanx of the fifth digit was removed without incident. The area was flushed with copious gregory normal saline. Procedure #3, PIPJ arthroplasty, digits 2, 3 and 4, right foot Next, attention was directed to the lesser digits 2, 3 and 4 of the right foot. Procedure #3 was performed for all digits 2, 3 and 4. Using a Ringgold blade a medial stab incision was performed on the medial aspect of the PIPJ of digits 2, 3 and 4. Using the Arthrex minimally invasive bur, the bur was inserted across all the PIPJ joints of digits 2, 3 and 4 and the articular cartilage and head of the proximal phalanx was removed without incident. All digits to show evidence of increased range of motion when performed on the operating table. Resection of the PIPJ was noted clinically as well as with mini C-arm fluoroscopy. All incisions were flushed with copious gregory normal saline. Excess bone paste was ejected from the medial incision. Small open oblique incisions were carried out over the dorsal knuckle of the PIPJ of the right foot to aid in additional contracture to allow for a more rectus position of the lesser digits 2, and 3. Additional loose bone was removed from the dorsal incision of digits 2 and 3. All incisions were flushed with copious gregory normal saline. Procedure #4, IPJ arthroplasty, right hallux, right foot Next attention was directed to the right hallux. Using the Ringgold blade, a small stab incision was made medially to the IPJ of the right hallux. Using the Arthrex MIS bur, the IPJ articular cartilage was removed without incidence. The IPJ showed increase in range of motion which was checked clinically while on the operating table. Removal of the joint was confirmed with mini C arm fluoroscopy. There was attempt to place orthopedic hardware across the IPJ of the right hallux, 5 mm headless screw, however once the screw was placed across the joint there was evidence of toggling of the screw secondary to osteoporotic bone. It had deemed necessary at that time in the operating room to remove the screw and to move forward with the IPJ arthroplasty of the right hallux to decrease the likelihood of backing out or failure of the hardware and prevent infection and loss of great toe. The right thigh tourniquet was deflated and reperfusion to the right lower extremity was noted while on the operating table. All incisions to digits 1 through 5 were flushed with copious gregory of normal saline. The right fifth digit incision was derotated and closed with 3-0 nylon in simple interrupted suture technique. All plantar incisions were closed with 3-0 nylon in simple interrupted suture technique. All medial stab incisions from digits 1 through 4 were closed with 3-0 nylon in simple interrupted suture technique. The dorsal skin of digits 2 and 3 were reapproximated and closed with 3-0 nylon in simple interrupted suture technique. All incisions were dressed with Betadine soaked Adaptic, dry sterile dressing and a Sanchez AO splint was applied to the right lower extremity in 90 degree fashion. The patient tolerated the procedure and anesthesia well and apparent satisfactory condition and was transported to the PACU for further monitoring prior to discharge home. Vital signs stable and vascular status intact to all digits bilateral. Post Operative Plan: Weightbearing: Nonweightbearing to right lower extremity. Full weightbearing to left lower extremity. Antibiotics: 2 g Ancef DVT Prophylaxis: Aspirin 81 mg Quezada: None Dressing: All incisions were dressed with Betadine soaked Adaptic, dry sterile dressing, Sanchez AO splint at 90 degrees. X-Rays: Post-operative films taken on the operating room. Pain Medication: Percocet 5/325, Flexeril 10 mg 3 times daily Follow-up: Patient will follow-up with Dr. Franco in private office 1 week postop. Grafts/Implants Used: None Complications After placement of the orthopedic hardware across the IPJ of the right hallux that showed evidence of hardware failure secondary to osteoporotic bone. Medical decision in the operating room was to remove the hardware to decrease the chance of hardware failure, backing out, infection and loss of great toe. After removal of the hardware there showed a straight great toe which will aid the patient in a excellent postoperative recovery. Admit VTE Documentation VTE Present on Admission: No VTE Mechan Device Prophylaxis: SCD's VTE Pharm Prophylaxis ordered?: Yes
[2023-05-08 13:08] LABS: Cotinine Screen Blood <1.0 ng/mL (.); Nicotine Blood <1.0 ng/mL (.)
== END 2023-05-08 12:49 | disposition home or self-care (01) ==
LOC: SDC 07:23 → AC 07:24
PROVIDERS: Psychiatry & Neurology Neurology; PCP Family Medicine; Referring Provider Podiatrist Foot & Ankle Surgery; Visit Provider Podiatrist Foot & Ankle Surgery
PROC: (CPT 28292; principal; 2023-05-08 08:45)
DX: M20.41 Other hammer toe(s) (acquired), right foot (principal); G35 Multiple sclerosis; I50.9 Heart failure, unspecified; I11.0 Hypertensive heart disease with heart failure; M24.574 Contracture, right foot; M20.31 Hallux varus (acquired), right foot; I25.10 Atherosclerotic heart disease of native coronary artery without angina pectoris; G47.33 Obstructive sleep apnea (adult) (pediatric); E78.5 Hyperlipidemia, unspecified; J45.909 Unspecified asthma, uncomplicated; E55.9 Vitamin D deficiency, unspecified; D64.9 Anemia, unspecified; Z79.899 Other long term (current) drug therapy; Z86.718 Personal history of other venous thrombosis and embolism; Z86.711 Personal history of pulmonary embolism; Z87.891 Personal history of nicotine dependence; Z86.73 Personal history of transient ischemic attack (TIA), and cerebral infarction without residual deficits; Z79.82 Long term (current) use of aspirin
CPT/HCPCS: 28230; 28285; 28234; 28289; 64450; 01470; 36415; 73620; 76000; 80053; 80323; 82306; 83036; 85025; C1713; J7120; G0480; J2405

== ENCOUNTER 2023-10-08 12:43 | Emergency (ER) | payer MEDICARE, SELFPAY ==
[2023-10-08 12:43] VITALS: BP 163/75; PULSE 79; RESP 14; TEMP 36.6; O2SAT 93
--- NOTE | 2023-10-08 13:03 | EKG12_ITS ---
Test Reason : Blood Pressure : / mmHG Vent. Rate : 072 BPM Atrial Rate : 072 BPM P-R Int : 156 ms QRS Dur : 140 ms QT Int : 434 ms P-R-T Axes : 042 -44 061 degrees QTc Int : 475 ms Atrial-sensed ventricular-paced rhythm Biventricular pacemaker detected Abnormal ECG Confirmed by Aaron Louise ([id number]), videotape editor HARMAN DÍAZ ([id number]) on 10/10/2023 7:41:24 AM Referred By: Confirmed By:Aaron Louise
--- NOTE | 2023-10-08 13:03 | RAD_ITS ---
HISTORY: cough. TECHNIQUE: XR Chest 1 View. COMPARISON: 08/02/2020. FINDINGS: CARDIOMEDIASTINAL BORDERS: Cardiac silhouette within normal limits in size with pacemaker again seen. Mediastinal contour also unchanged with midline sternotomy. LUNGS: Chronic mild bibasilar atelectasis or scarring. PLEURA: No pleural effusion or pneumothorax seen. OTHER: Scoliosis and degenerative change. IVC filter in the right abdomen. RAD/Chest 1 View (Portable) IMPRESSION: Mild bibasilar atelectasis. Electronically Signed: Yesenia Victoria MD at 14:08 EDT ,
[2023-10-08 13:20] LABS: Absolute Lymphocyte Count 0.47 X10^3/uL (0.83-4.51); Absolute Neutrophil Count 4.5 X10^3/uL (2.0-7.7); Basophil# 0.02 X10^3/uL; Basophil% 0.4 % (0-1); Eosinophil# 0.13 X10^3/uL; Eosinophils% 2.3 % (0-5); Hematocrit 40.1 % (37-47); Hemoglobin 12.3 g/dL (12.0-15.0); Lymphocyte # 0.47 X10^3/ul (0.83-4.51); Lymphocyte % 8.3 % (19-41); Mean Corp Hgb Conc 30.7 g/dL (32-36); Mean Corpuscular Hgb 26.5 pg (27.0-32.0); Mean Corpuscular Volume 86.2 fL (81-99); Mean Platelet Vol. 9.9 fl (6.2-12.0); Monocyte# 0.49 X10^3/uL; Monocyte% 8.6 % (0-10); NRBC Flagged by Analyzer 0 % (0-5); Neutrophil # 4.54 X10^3/uL (2.7-7.7); Neutrophil % 79.9 % (47-70); POSITIVE DIFFERENTIAL YES; Platelet Count 272 K/mm3 (150-450); RBC Distribution Width CV 14.2 % (11.6-14.6); RBC Distribution Width SD 43.8 fl (35.1-43.9); Red Blood Count 4.65 M/mm3 (4.2-5.4); White Blood Count 5.7 K/mm3 (4.4-11.0)
[2023-10-08] MEDS: 0.9% Normal Saline (1000mL) 1,000 ML 999 ML IV (13:31)
[2023-10-08] MEDS: Morphine 4 MG/ML Syringe IV (13:32)
[2023-10-08] MEDS: Ondansetron 4 MG/2 ML Vial IV (13:32)
--- NOTE | 2023-10-08 13:35 | RAD_ITS ---
STUDY: X-RAY - LEFT SHOULDER REASON FOR EXAM: Female, 72 years old. Shoulder pain TECHNIQUE: 5 views of the left shoulder. COMPARISON: None. FINDINGS: There is mild glenohumeral arthrosis. There is mild hypertrophic acromioclavicular arthrosis. Normal acromion. Normal humeral head and visualized proximal humerus. There is no demonstrated fracture. There is benign calcific density overlying the subcutaneous fat along the lateral aspect of the left upper arm. Normal visualized pulmonary apex. There is a dual-lead pacer overlying the left chest. RAD/Shoulder min 2 Views IMPRESSION: Mild glenohumeral arthrosis. Mild hypertrophic acromioclavicular arthrosis. Electronically Signed: Aime Gong MD at 14:10 EDT ,
[2023-10-08 13:39] LABS: AST(SGOT) 24 U/L (15-37); Alanine Aminotransfer ALT/SGPT 44 U/L (13-56); Albumin, Serum 3.6 g/dL (3.2-5.0); Alkaline Phosphatase 82 U/L (45-117); Anion Gap 5 (5-15); BUN 14 mg/dL (7-18); BUN/Creat Ratio 19.4 RATIO (10-20); Calcium,Total 10.7 mg/dL (8.5-10.1); Chloride 109 mmol/L (98-107); Creatinine, Serum 0.72 mg/dL (0.55-1.02); EST Glomerular Filtration Rate 84 mL/min (>60); Est Glom Filt Rate - Afr Amer 101 mL/min (>60); Globulin 3.7 g/dL (2.2-4.2); Glucose 102 mg/dL (74-106); Potassium 4.3 mmol/L (3.5-5.1); Protein, Total 7.3 g/dL (6.4-8.2); Sodium Level 141 mmol/L (136-145)
--- NOTE | 2023-10-08 13:56 | EX.ED.UPPERE ---
HPI <MARK Menjivar - Last Filed: 10/08/23 15:35> History of Present Illness Chief Complaint: Upper Extremity Injury Narrative Narrative: Patient is a 72-year-old female with history of obesity, CAD, pacemaker, on anticoagulation, MS who usually gets around by wheelchair presenting to the emergency department for multiple complaints. Patient notes that her left hand and arm was more swollen over the last 4 to 5 days, she has not missed any of her anticoagulation doses. Patient also is complaining of headache, neck pain, shoulder blade pain. Patient stated this started today. The daughter thought that she was having an MS flare a few days ago. However the patient states she does not feel good and is here for evaluation. She denies any cough, fever or chills. PFS <MARK Menjivar - Last Filed: 10/08/23 15:35> [facility] Medical History Loss of hearing Wears partial dentures Wears dentures Wears glasses Walker as ambulation aid Arthritis Low iron TIA (transient ischemic attack) History of hiatal hernia Former smoker CPAP (continuous positive airway pressure) dependence Sleep apnea History of echocardiogram History of stress test Cardiology follow-up encounter History of pacemaker (~1982) History of heart attack Pneumonia RUQ pain DVT (deep venous thrombosis) Vitamin D deficiency Back pain Iron deficiency anemia GERD (gastroesophageal reflux disease) REBECCA (obstructive sleep apnea) Cardiac pacemaker Hypertension Pulmonary embolism CAD (coronary artery disease) Hyperlipidemia Neuropathic pain Multiple sclerosis Home Medications ?Medication ?Instructions ?Recorded ?Last Taken ?Type apixaban 5 mg tablet 5 mg PO BID blood thinner 07/20/18 04/30/23 History aspirin 81 mg chewable tablet 81 mg PO DAILY@0800 heart health 07/20/18 04/30/23 History carvedilol 12.5 mg tablet 12.5 mg PO BID blood pressure 07/20/18 05/08/23 History fenofibrate nanocrystallized 145 145 mg PO DAILY cholesterol 07/20/18 05/07/23 History mg tablet ferrous sulfate 325 mg (65 mg 65 mg PO DAILY supplement 07/20/18 05/07/23 History iron) tablet losartan 50 mg tablet 50 mg PO DAILY blood pressure 07/20/18 05/07/23 History magnesium oxide 400 mg (241.3 mg 400 mg PO BID supplement 07/20/18 05/07/23 History magnesium) tablet multivitamin 1 each PO DAILY supplement 07/20/18 05/07/23 History esomeprazole magnesium 40 mg 40 mg PO DAILY acid reflux 07/25/20 05/08/23 History capsule,delayed release (Nexium) spacer #1 ea 11/22/20 Unknown Rx Right AFO #1 ea 11/21/21 Unknown Rx spironolactone 25 mg tablet 25 mg PO DAILY 02/05/22 05/07/23 History dimethyl fumarate 240 mg 240 mg PO BID 04/30/23 05/07/23 History capsule,delayed release (Tecfidera) nitroglycerin 0.4 mg sublingual 0.4 mg sublingual Q5M 04/30/23 Unknown History tablet ascorbic acid (vitamin C) 1,000 mg 1 g PO DAILY 90 days #90 tabs 05/08/23 Unknown Rx tablet (Vitamin C) cyclobenzaprine 10 mg tablet 10 mg PO TID PRN muscle spasm 7 05/08/23 Unknown Rx days #21 tabs oxycodone-acetaminophen 5 mg-325 1 tab PO Q6H PRN pain 7 days #28 05/08/23 Unknown Rx mg tablet (Percocet) tabs albuterol sulfate 90 mcg/actuation 2 puff inhalation Q6H PRN 09/10/23 Unknown Rx aerosol inhaler (ProAir HFA) shortness of breath or wheezing #8.5 grams cranberry 500 mg capsule 500 mg PO DAILY 09/10/23 Unknown History mometasone-formoterol HFA 200 2 inh inhalation BID #3 ea 09/10/23 Unknown Rx mcg-5 mcg/actuation aerosol inhaler (Dulera) pravastatin 40 mg tablet 40 mg PO QDAY 09/10/23 Unknown History baclofen 20 mg tablet See Rx Instructions .Route 09/15/23 Unknown Rx .COMPLEX #360 tabs cholecalciferol (vitamin D3) 1,250 1,250 mcg PO QMONTH #3 caps 09/15/23 Unknown Rx mcg (50,000 unit) capsule diroximel fumarate 231 mg 231 mg PO BID #60 caps 09/15/23 Unknown Rx capsule,delayed release (Vumerity) duloxetine 30 mg capsule,delayed 30 mg PO QPM #90 caps 09/15/23 Unknown Rx release duloxetine 60 mg capsule,delayed 60 mg PO QAM #90 caps 09/15/23 Unknown Rx release gabapentin 800 mg tablet 800 mg PO TID #270 tabs 09/15/23 Unknown Rx cephalexin 500 mg capsule 500 mg PO TID 7 days #21 caps 10/08/23 Unknown Rx hydrocodone-acetaminophen 5-325mg 1 tab PO Q6H PRN PRN Pain 3 days 10/08/23 Unknown Rx 5mg-325mg #10 TABLETS Allergy/AdvReac Type Severity Reaction Status Date / Time glatiramer (copolymer 1) Allergy Unknown Itching Verified 10/08/23 12:44 (From [employer]) Family History Mother Diabetes Myocardial infarction Father Cancer Brother Cancer Sister MS CVA (cerebral vascular accident) Myocardial infarction Cervical cancer Surgical History History of rotator cuff surgery History of esophagogastroduodenoscopy (EGD) History of colonoscopy History of cataract extraction with lens replacement History of hysterectomy History of cardiac catheterization (~1979) history double bypass cardiac surgery History of carpal tunnel release History of appendectomy Social History Smoking Status: Former smoker quit date: 04/13/1968 Tobacco: How many years used: 20 Electronic Cigarette Use: not used second hand exposure: No alcohol intake: current alcohol intake frequency: holidays/special occasions only Alcohol type: wine and hard liquor substance use type: does not use pascale/jain: Lutheran seatbelt use: always ROS <MARK Menjivar - Last Filed: 10/08/23 15:35> ROS ED ROS Narrative Constitutional: Negative for fever, chills, weight loss. Positive generalized weakness Eyes: Negative for vision loss, vision change, double vision ENT: Negative for any sore throat, ear pain, congestion Cardiovascular: Negative for any chest pain, tightness, palpitations Respiratory: Negative for any cough, sputum production, hemoptysis, dyspnea, dyspnea on exertion, orthopnea Gastrointestinal: Negative for any abdominal pain, nausea, vomiting, diarrhea, constipation, blood in stool, blood in vomit : Negative for any urinary frequency, dysuria, retention, blood in urine Muscle skeletal: Negative for any back pain. Positive for neck pain, left shoulder left arm pain Neurological: Negative for any syncope, dizziness. Positive headache Skin: Negative for any rashes, itching, abrasions, lacerations Psychiatric: Negative for any depression, anxiety, stress, suicidal ideation, homicidal ideation Hematologic: Negative for any excessive bruising, easy bleeding EXAM <MARK Menjivar - Last Filed: 10/08/23 15:35> Physical Exam Narrative Exam Narrative: Vital signs reviewed. HEET: Head normocephalic atraumatic, TMs clear bilaterally. Posterior pharynx is clear, moist mucous membranes. Nares clear bilaterally. Neck: Supple with no lymphadenopathy or tenderness. No signs of meningismus. Cardiac: Regular rate and rhythm no murmurs gallops or rubs, equal peripheral pulses bilaterally. Respiratory: Lungs clear to auscultation bilaterally. No chest tenderness. Abdomen: Soft, nontender, nondistended. No abdominal bruit or pulsatile masses. No hepatosplenomegaly Extremities: No peripheral edema, no signs of gross trauma or deformity. Active full range of motion of all extremities. Patient did not pain on palpation to the anterior shoulder, Neuro: Cranial nerves II through XII intact, no focal neurological deficits. Skin: Clean dry and intact with no rash, purpura, petechiae, vesicles or pustules. Backs/flank: No CVA tenderness, no midline spinal tenderness, no deformity. Pain to the trapezius muscles, lateral side of the neck. Appearing muscle skeletal. Psych: Normal mood and affect. No SI, HI or acute psychosis. Const Vital Signs: 10/08/23 12:43 Temperature 98 F Temperature Source Temporal Pulse Rate 79 Respiratory Rate 14 Blood Pressure 163/75 H Blood Pressure Mean 104 Pulse Ox 93 Oxygen Delivery Method Room Air Positive well nourished, well developed and obese General Appearance ED: well developed Nutritional Appearance: obese MDM <MARK Menjivar - Last Filed: 10/08/23 15:35> [facility] Lab Data Labs: Laboratory Results - last 24 hr 10/08/23 13:12 WBC 5.7 RBC 4.65 Hgb 12.3 Hct 40.1 MCV 86.2 MCH 26.5 L MCHC 30.7 L RDW Std Deviation 43.8 RDW Coeff of Rainer 14.2 Plt Count 272 MPV 9.9 Immature Gran % (Auto) 0.500 Neut % (Auto) 79.9 H Lymph % (Auto) 8.3 L Newberry % (Auto) 8.6 Eos % (Auto) 2.3 Baso % (Auto) 0.4 Absolute Neuts (auto) 4.5 Absolute Lymphs (auto) 0.47 L Nucleated RBC % 0 Sodium 141 Potassium 4.3 Chloride 109 H Carbon Dioxide 27.0 Anion Gap 5 BUN 14 Creatinine 0.72 Est GFR (MDRD) Af Amer 101 Est GFR (MDRD) Non-Af 84 BUN/Creatinine Ratio 19.4 Glucose 102 Calcium 10.7 H Total Bilirubin 0.30 AST 24 ALT 44 Alkaline Phosphatase 82 Total Protein 7.3 Albumin 3.6 Globulin 3.7 Albumin/Globulin Ratio 1.0 Treatment and Re-Evaluation Narrative: Differential diagnosis includes however is not limited to: Electrolyte abnormality, viral-like syndromes, MS flare, anemia Patient appears to be in no obvious distress, patient's vital signs are stable. Patient presents to the emergency department with complaints of left arm swelling, headache, neck pain, shoulder pain and shoulder blade pain. Patient received basic laboratory values, chest x-ray, left shoulder x-ray, urinalysis. Patient will receive a viral panel such as RSV COVID and influenza. All radiologic examinations were read, reviewed by the emergency department attending. From these reads, a plan of care will be put in place. Patient's CBC was unremarkable, chemistries were unremarkable, patient's x-rays of the shoulder and chest showed arthritis, acromioclavicular arthrosis. Chest x-ray showed some atelectasis however no pneumonia. Patient's urinalysis was positive for infection with 4+ bacteria 100 leukocytes, this to be sent for a culture. Patient be started on Keflex 3 times a day for 7 days. Patient will be given a short course of [place] for her shoulder pain. She is instructed to return for any worsening symptoms. All questions answered, patient stable for discharge. <Dr. Eh Floyd MD - Last Filed: 10/09/23 14:30> [facility] Narrative Medical decision making narrative: I have personally performed a face to face assessment of the patient and have reviewed the RASHMI Note. I performed a substantive portion of the visit including all aspects of the following. My brown findings include: History is remarkable for rheumatoid arthritis, osteoarthritis, irritable bowel syndrome, coronary disease status post two-vessel bypass surgery, hyperlipidemia and MS who presents with atraumatic left shoulder pain. She denies paresthesia, anesthesia or motor weakness. Movement exacerbates her pain. She has no known history of rotator cuff syndrome. She has no symptoms to suggest carpal tunnel syndrome or ulnar nerve entrapment. Exam is unremarkable. There may be slight swelling of the left shoulder. There is pain the patient of the left shoulder. There is pain ovation over the trapezius area. Axillary, median, radial and ulnar function intact. Radial pulses palpable. There is no dermatologic lesions noted. Heart lung exam is normal. Patient has pain with abduction past 90 degrees. She has a negative drop test. Medical Decision Making nurses obtain EKG per protocol because of atraumatic left arm pain. She denies cardiac symptoms over the past week. EKG was unremarkable. Other additions or changes: [None] Lab Data Attestation: I reviewed the patient's lab results. Lab results narrative: CBC is normal. Comprehensive metabolic panel reveals slight elevation of calcium of 10.7. Radiography Chest X-Ray - ED: 1 View (Single view chest x-ray was independent reviewed interpreted by me as negative for acute process. Suboptimal since it slightly rotated and only a single view. Cardiac silhouette and size normal. Lung parenchyma is normal. There is no effusion or infiltrate. Hilum is normal. Osseous structures ) and Read by ED Physician (Three-view x-ray of the shoulder reveals no acute process. There is no fracture, subluxation dislocation. There is degenerative changes noted.) Discharge Plan Triage Chief Complaint: Upper Extremity Injury ED Midlevel Provider: Remi France ED Provider: Eh Floyd Dx/Rx/DC Orders Clinical Impression: Arthritis of shoulder, Acute UTI, FH: multiple sclerosis Instructions: Multiple Sclerosis, Urinary Tract Infections in Women, Arthritis Acromioclavicular Prescriptions: New cephalexin 500 mg capsule 500 mg PO TID 7 Days Qty: 21 0RF hydrocodone-acetaminophen 5-325 mg tablet 1 tab PO Q6H PRN PRN (Reason: Pain) 3 Days Qty: 10 0RF No Action esomeprazole magnesium [Nexium] 40 mg capsule,delayed release(DR/EC) 40 mg PO DAILY Rx Instructions: Take 1hr-30min before breakfast (DME) Right AFO See Rx Instructions .Route .MEDSUPPLY Qty: 1 0RF Rx Instructions: Evaluate left AFO; patient having skin irritation ICD 10: G35 and R29.898 baclofen 20 mg tablet See Rx Instructions .ROUTE .COMPLEX Qty: 360 2RF Rx Instructions: 1 tablet PO QAM, 1 tab PO QPM and 2 tablets PO QHS Vumerity 231 mg capsule,delayed release(DR/EC) 231 mg PO BID Qty: 60 6RF gabapentin 800 mg tablet 800 mg PO TID Qty: 270 1RF duloxetine 60 mg capsule,delayed release(DR/EC) 60 mg PO QAM Qty: 90 2RF duloxetine 30 mg capsule,delayed release(DR/EC) 30 mg PO QPM Qty: 90 2RF cholecalciferol (vitamin D3) 1,250 mcg (50,000 unit) capsule 1,250 mcg PO QMONTH Qty: 3 2RF pravastatin 40 mg tablet 40 mg PO QDAY cranberry 500 mg capsule 500 mg PO DAILY Rx Instructions: administer with meals Dulera 200-5 mcg/actuation HFA aerosol inhaler 2 inh inhalation BID Qty: 3 3RF albuterol sulfate [ProAir HFA] 90 mcg/actuation HFA aerosol inhaler 2 puff inhalation Q6H PRN (Reason: shortness of breath or wheezing) Qty: 8.5 1RF multivitamin 1 EACH tablet 1 each PO DAILY losartan 50 MG tablet 50 mg PO DAILY carvedilol 12.5 MG tablet 12.5 mg PO BID magnesium oxide 400 MG tablet 400 mg PO BID ferrous sulfate 325 MG tablet 65 mg PO DAILY aspirin 81 MG tablet,chewable 81 mg PO DAILY@0800 fenofibrate nanocrystallized 145 MG tablet 145 mg PO DAILY apixaban 5 MG tablet 5 mg PO BID spironolactone 25 mg tablet 25 mg PO DAILY dimethyl fumarate [Tecfidera] 240 mg capsule,delayed release(DR/EC) 240 mg PO BID nitroglycerin 0.4 mg tablet, sublingual 0.4 mg sublingual Q5M Rx Instructions: do not exceed 3 doses per episode oxycodone-acetaminophen [Percocet] 5-325 mg tablet 1 tab PO Q6H PRN (Reason: pain) 7 Days Qty: 28 0RF cyclobenzaprine 10 mg tablet 10 mg PO TID PRN (Reason: muscle spasm) 7 Days Qty: 21 0RF ascorbic acid (vitamin C) [Vitamin C] 1,000 mg tablet 1 g PO DAILY 90 Days Qty: 90 0RF (DME) spacer See Rx Instructions .ROUTE .MEDSUPPLY Qty: 1 0RF Rx Instructions: As directed Primary Care Provider: Jamie Cruz Referrals: Jamie Cruz MD [Primary Care Provider] - Activity Restrictions/Additional Instructions: Take your antibiotics until finished. Your urine will be sent for culture. Take the [place] as needed for your severe pain. Please return for any worsening weakness, fever chills nausea or vomiting. Print Language: Belarusian Disposition Disposition: Home, Self Care Discharge Date/Time: 10/08/23 15:56
[2023-10-08 14:48] VITALS: RESP 16; O2SAT 98
[2023-10-08 14:50] LABS: Mucous, Urine 0 SEEN /hpf (<or=2+); Red Blood Cells-Urine 0 SEEN /hpf (0-5)
[2023-10-08 14:55] LABS: Color, Urine Yellow (Yellow); Glucose, Dipstick Normal (Normal); Ketone-Dipstick Negative (Negative); Leukocyte Esterase-Dipstick 100 /ul (Negative); Nitrite-Dipstick Negative (Negative); Occult Blood-Urine 10 /ul (Negative); Protein-Dipstick Negative (Negative); Urine Bilirubin Dipstick Negative (Negative); Urine Clarity Sl. Cloudy (Clear); Urine Urobilinogen Normal (Normal)
[2023-10-08 15:23] LABS: Bacteria 4+ /hpf (None Seen); Squamous Epithelial Cells - UA 0-5 SEEN /hpf (5-10); White Blood Cells 0-5 SEEN /hpf (0-5)
[2023-10-08] MEDS: Cephalexin 250 MG Capsule 500 MG PO (15:43)
[2023-10-08 15:55] VITALS: BP 134/82; PULSE 76; RESP 16; TEMP 36.6; O2SAT 98
== END 2023-10-08 15:56 | disposition home or self-care (01) ==
PROVIDERS: Nurse Practitioner; Emergency Provider Emergency Medicine; PCP Family Medicine; Visit Provider Emergency Medicine
DX: M13.819 Other specified arthritis, unspecified shoulder (principal); G35 Multiple sclerosis; Z87.891 Personal history of nicotine dependence; I10 Essential (primary) hypertension; Z95.0 Presence of cardiac pacemaker; Z79.01 Long term (current) use of anticoagulants; Z86.73 Personal history of transient ischemic attack (TIA), and cerebral infarction without residual deficits; G47.33 Obstructive sleep apnea (adult) (pediatric); Z99.89 Dependence on other enabling machines and devices; Z79.82 Long term (current) use of aspirin; Z79.899 Other long term (current) drug therapy; K21.9 Gastro-esophageal reflux disease without esophagitis; Z98.49 Cataract extraction status, unspecified eye; Z90.710 Acquired absence of both cervix and uterus; Z90.49 Acquired absence of other specified parts of digestive tract
CPT/HCPCS: 71045; 73030; 80053; 81001; 85025; 87077; 87086; 87088; 87186; 87631; 93005; 96361; 96374; 96375; 99283; J7030; A4216; J2405

== ENCOUNTER 2023-12-23 11:22 | Outpatient (CLI) | payer MEDICARE, SELFPAY ==
[2023-12-23 11:34] VITALS: BP 147/57; PULSE 79; RESP 16; TEMP 36; O2SAT 94; BMI 40.8
[2023-12-23] MEDS: 0.9% NaCl Peripheral Flush Adult/Peds IV ×2 (11:38→13:20)
[2023-12-23] MEDS: MethylPREDNISolone 1,000 MG in 0.9% Normal Saline (100mL Bag) 100 ML 100 MG IV (12:05)
[2023-12-23 13:22] VITALS: BP 138/63; PULSE 69; RESP 16
== END 2023-12-23 23:59 | disposition home or self-care (01) ==
LOC: MEDOUTP 11:22
PROVIDERS: PCP Family Medicine; Referring Provider Psychiatry & Neurology Neurology; Visit Provider Psychiatry & Neurology Neurology
DX: G35 Multiple sclerosis (principal)
CPT/HCPCS: 96365; A4216; J2919

== ENCOUNTER 2023-12-24 11:09 | Outpatient (CLI) | payer MEDICARE, SELFPAY ==
[2023-12-24] MEDS: 0.9% NaCl Peripheral Flush Adult/Peds IV ×2 (11:19→12:53)
[2023-12-24 11:20] VITALS: BP 143/56; PULSE 84; RESP 16; TEMP 36.6; O2SAT 94; BMI 40.8
[2023-12-24] MEDS: MethylPREDNISolone 1,000 MG in 0.9% Normal Saline (100mL Bag) 100 ML 100 MG IV (11:39)
[2023-12-24 13:02] VITALS: BP 138/54; PULSE 86; RESP 16; TEMP 36.8; O2SAT 93
== END 2023-12-24 23:59 | disposition home or self-care (01) ==
LOC: MEDOUTP 11:10
PROVIDERS: PCP Family Medicine; Referring Provider Psychiatry & Neurology Neurology; Visit Provider Psychiatry & Neurology Neurology
DX: G35 Multiple sclerosis (principal)
CPT/HCPCS: 96365; A4216; J2919

== ENCOUNTER 2023-12-25 11:20 | Outpatient (CLI) | payer MEDICARE, SELFPAY ==
[2023-12-25 11:41] VITALS: BP 128/82; PULSE 71; RESP 16; TEMP 37.1; O2SAT 96; BMI 40.8
[2023-12-25] MEDS: 0.9% NaCl Peripheral Flush Adult/Peds IV (11:51)
[2023-12-25] MEDS: 0.9% NaCl IVPB Med Flush (250 mL) 15 ML IV (11:51)
[2023-12-25] MEDS: MethylPREDNISolone 1,000 MG in 0.9% Normal Saline (100mL Bag) 100 ML 100 MG IV (12:10)
[2023-12-25 13:37] VITALS: BP 125/49; PULSE 73; RESP 16; TEMP 36.8; O2SAT 95
== END 2023-12-25 23:59 | disposition home or self-care (01) ==
LOC: MEDOUTP 11:20
PROVIDERS: PCP Family Medicine; Referring Provider Psychiatry & Neurology Neurology; Visit Provider Psychiatry & Neurology Neurology
DX: G35 Multiple sclerosis (principal)
CPT/HCPCS: 96365; 96366; J7050; A4216; J2919

== ENCOUNTER 2024-03-21 12:39 | Outpatient (CLI) | payer MEDICARE, SELFPAY ==
[2024-03-21 12:57] VITALS: BP 154/61; PULSE 72; RESP 16; TEMP 36; O2SAT 95; BMI 40.8
[2024-03-21] MEDS: MethylPREDNISolone 1,000 MG in 0.9% Normal Saline (250mL Bag) 250 ML 250 MG IV (13:43)
== END 2024-03-21 23:59 | disposition home or self-care (01) ==
LOC: MEDOUTP 12:40
PROVIDERS: PCP Family Medicine; Referring Provider Psychiatry & Neurology Neurology; Visit Provider Psychiatry & Neurology Neurology
DX: G35 Multiple sclerosis (principal)
CPT/HCPCS: 96365; 96366; A4216; J2919

== ENCOUNTER 2024-03-22 12:34 | Outpatient (CLI) | payer MEDICARE, SELFPAY ==
[2024-03-22 12:53] VITALS: BP 137/57; PULSE 90; RESP 18; TEMP 36.3; O2SAT 92
[2024-03-22] MEDS: 0.9% NaCl Peripheral Flush Adult/Peds IV (13:02)
[2024-03-22] MEDS: MethylPREDNISolone 1,000 MG in 0.9% Normal Saline (250mL Bag) 250 ML 250 MG IV (13:29)
[2024-03-22 14:49] VITALS: BP 118/61; PULSE 81; RESP 16; TEMP 36.3; O2SAT 98
== END 2024-03-22 23:59 | disposition home or self-care (01) ==
LOC: MEDOUTP 12:35
PROVIDERS: PCP Family Medicine; Referring Provider Psychiatry & Neurology Neurology; Visit Provider Psychiatry & Neurology Neurology
DX: G35 Multiple sclerosis (principal)
CPT/HCPCS: 96365; 96366; A4216; J2919

== ENCOUNTER 2024-03-23 12:32 | Outpatient (CLI) | payer MEDICARE, SELFPAY ==
[2024-03-23] MEDS: 0.9% NaCl Peripheral Flush Adult/Peds IV (12:44)
[2024-03-23] MEDS: 0.9% NaCl IVPB Med Flush (250 mL) 15 ML IV (12:44)
[2024-03-23] MEDS: MethylPREDNISolone 1,000 MG in 0.9% Normal Saline (250mL Bag) 250 ML 250 MG IV (12:45)
[2024-03-23 12:48] VITALS: BP 134/58; PULSE 84; RESP 16; TEMP 37.1; O2SAT 92
[2024-03-23 14:11] VITALS: BP 131/56; PULSE 883; RESP 16; TEMP 37; O2SAT 92
== END 2024-03-23 23:59 | disposition home or self-care (01) ==
LOC: MEDOUTP 12:33
PROVIDERS: PCP Family Medicine; Referring Provider Psychiatry & Neurology Neurology; Visit Provider Psychiatry & Neurology Neurology
DX: G35 Multiple sclerosis (principal)
CPT/HCPCS: 96365; 96366; A4216; J2919

== ENCOUNTER → 2024-06-16 | Outpatient (CLI) | payer MEDICARE, SELFPAY ==
--- NOTE | 2024-06-16 07:13 | CT_ITS ---
PROCEDURE: EXTREMITY UPPER W/WO CONTRAST REASON FOR EXAM: Left upper extremity swelling, mass, and lump. Rule out lipoma. TECHNIQUE: CT of the left arm, without and with contrast COMPARISON: None provided. FINDINGS: [id number] left acromioclavicular joint degenerative changes are seen, with significant associated joint narrowing. Moderately severe left glenohumeral joint degenerative changes are seen, with associated severe joint narrowing. Mild degenerative changes are senior elbow joint. No elbow joint effusion is seen. Within the subcutaneous tissues lateral/posterior left arm, are seen extensive areas of dense calcification (axial images 17 through 45). A large amount of fluid is seen within the subacromial/subdeltoid bursa, extending to the proximal arm. No unexpected area of postcontrast enhancement is seen. No acute osseous process is evident. No Marni is clearly identified. CT/Extremity Upper W/WO Contrast IMPRESSION: 1. Large amount of fluid within the subacromial/subdeltoid bursa, extending to the proximal arm. 2. Prominent areas of calcification in the subcutaneous tissues of the left arm . 3. Degenerative changes as noted. One or more dose reduction techniques were used (e.g., Automated exposure contr ol, adjustment of the mA and/or kV according to patient size, use of iterative reconstruction technique). Reading Location: [id number]
== END | disposition home or self-care (01) ==
LOC: CT 07:11
PROVIDERS: PCP Family Medicine; Referring Provider Student in an Organized Health Care Education/Training Program; Visit Provider Student in an Organized Health Care Education/Training Program
DX: R22.32 Localized swelling, mass and lump, left upper limb (principal)
CPT/HCPCS: 73202; Q9967

== ENCOUNTER → 2024-07-21 | Outpatient (CLI) | payer MEDICARE, SELFPAY ==
[2024-07-21 10:51] LABS: Absolute Lymphocyte Count 0.44 X10^3/uL (0.83-4.51); Absolute Neutrophil Count 4.6 X10^3/uL (2.0-7.7); Basophil# 0.03 X10^3/uL; Basophil% 0.5 % (0-1); Eosinophil# 0.13 X10^3/uL; Eosinophils% 2.3 % (0-5); Hematocrit 40.5 % (37-47); Hemoglobin 12.6 g/dL (12.0-15.0); Lymphocyte # 0.44 X10^3/ul (0.83-4.51); Lymphocyte % 7.7 % (19-41); Mean Corp Hgb Conc 31.1 g/dL (32-36); Mean Corpuscular Hgb 26.7 pg (27.0-32.0); Mean Corpuscular Volume 85.8 fL (81-99); Mean Platelet Vol. 10.4 fl (6.2-12.0); Monocyte# 0.53 X10^3/uL; Monocyte% 9.3 % (0-10); NRBC Flagged by Analyzer 0 % (0-5); Neutrophil # 4.55 X10^3/uL (2.7-7.7); Neutrophil % 79.7 % (47-70); POSITIVE DIFFERENTIAL YES; Platelet Count 303 K/mm3 (150-450); RBC Distribution Width CV 13.9 % (11.6-14.6); RBC Distribution Width SD 43.7 fl (35.1-43.9); Red Blood Count 4.72 M/mm3 (4.2-5.4); White Blood Count 5.7 K/mm3 (4.4-11.0)
[2024-07-21 11:00] LABS: PTHIN 67 pg/mL (11-61)
[2024-07-21 11:02] LABS: ALB/GLOB Ratio 1.6 RATIO (0.9-2.4); AST(SGOT) 27 U/L (<=31); Alanine Aminotransfer ALT/SGPT 35 U/L (<=34); Albumin, Serum 4.4 g/dL (3.4-4.8); Alkaline Phosphatase 88 U/L (35-104); Anion Gap 12 (5-15); BUN 14 mg/dL (4-19); BUN/Creat Ratio 19.8 RATIO (10-20); Calcium,Total 11.4 mg/dL (7.6-11.0); Carbon Dioxide 22.6 mmol/L (21.0-32.0); Chloride 105 mmol/L (98-108); Creatinine, Serum 0.71 mg/dL (0.70-1.20); EST Glomerular Filtration Rate 89 (>60); Globulin 2.8 g/dL (2.2-4.2); Glucose 120 mg/dL (70-99); Potassium 4.6 mmol/L (3.3-5.1); Protein, Total 7.2 g/dL (5.9-8.4); Sodium Level 139 mmol/L (133-145); Total Bilirubin 0.29 mg/dL (0.00-1.30)
[2024-07-25 12:08] LABS: Vitamin D 1,25-Dihydroxy 70.9 pg/mL (24.8-81.5)
== END | disposition home or self-care (01) ==
LOC: MTLAB 09:23
PROVIDERS: PCP Family Medicine; Referring Provider Psychiatry & Neurology Neurology; Visit Provider Psychiatry & Neurology Neurology
DX: G35 Multiple sclerosis (principal); E83.52 Hypercalcemia
CPT/HCPCS: 36415; 80053; 82652; 83970; 85025

== ENCOUNTER 2024-08-25 12:24 | Outpatient (CLI) | payer MEDICARE, SELFPAY ==
--- NOTE | 2024-08-25 | FLU_PTH ---
PATIENT: JENNIFER KNAPP LOC: RAD U#:[id number] AGE/SX: 73/F ROOM: RE08/25/[address]: Dr. Dylan Coronado DO : 1950 BED: DIS: 08/25/2024 SPEC #: [id number] RECD: 08/25/24 13:59 STATUS: JOSSY REQ #: [id number] JOVANY: 08/25/24 00:[address]: Dylan Coronado DEPT: CYTOLOGY RECD BY: Chastity Hamilton ENTERED: 08/26/24 07:25 SP TYPE: Fluid OTHR DR: Dr. Jamie Cruz MD Tissues: Shoulder, NOS Procedures: Special Stain Group II Surgery Specimen Level IV Cytospin Fluid HEADER OPERATION: Left should aspiration PRE-OP DIAGNOSIS: Effusion left shoulder TISSUE SUBMITTED: A- Left shoulder fluid for cytology DIAGNOSIS CYTOLOGY A. Left shoulder, fine needle aspiration (cytospin, cellblock): * No malignant cells identified. CYTOLOGY STUDY Slides are reviewed. CYTOLOGY GROSS Received is 40 ml of red-cloudy fluid labeled with the patient's name and and designated per the requisition as Left shoulder aspiration. Submitted for cytology (cytospin) and cell block preparation. 08/26/2024 CPT: 14573, 41283
--- NOTE | 2024-08-25 12:32 | US_ITS ---
PROCEDURE: CYST PUNCTURE 08/25/2024 REASON FOR EXAM: Large left glenohumeral joint effusion. TECHNIQUE: Following informed consent, and using standard sterile technique, an ultrasound- guided left glenohumeral joint fluid aspiration was performed. 21 gauge needle was placed under ultrasound guidance into the fluid collection, and a proximally 60 mL dark booker fluid was successfully removed, and sent to the laboratory for evaluation. No complication was encountered, and the patient left the department in good condition, without significant complaint. COMPARISON: CT examination of 06/17/2019. US/Cyst Puncture IMPRESSION: Successful left glenohumeral joint effusion aspiration. Laboratory results maverick holden. Reading Location: [place] [id number]
[2024-08-25 17:11] LABS: Pathologist Comment/Body Fluid May follow
[2024-08-25 19:44] LABS: Body Fluid Mononuclear WBC # 0.249 10^3/uL; Body Fluid Mononuclear WBC % 76.1 %; Body Fluid Polynuclear WBC # 0.078 10^3/uL; Body Fluid Polynuclear WBC % 23.9 %; Body Fluid Total Cells Counted 0.475 10^3/ul; Red Cell Count/Body Fluid 0.015 10^6/ul; White Blood Count/Body Fluid 0.327 10^3/uL
[2024-08-25 22:55] LABS: Auto B Fluid Analyzer BKGD Ct COUNTS W/IN LIMITS (W/IN LIMITS)
[2024-08-25 22:57] LABS: Appearance/Body Fluid CLOUDY; Color/Body Fluid RED; Neutrophil (Segs) 4 %; Source- Body Fluid OTHER
[2024-08-25 22:58] LABS: Lymphocytes 4 %; Macrophages 90 %; Monocytes 0 %
[2024-08-25 22:59] LABS: Source- Body Fluid SYNOVIAL
[2024-08-30 13:16] LABS: Pathologist Review Reviewed
== END 2024-08-25 23:59 | disposition home or self-care (01) ==
PROVIDERS: PCP Family Medicine; Referring Provider Student in an Organized Health Care Education/Training Program; Visit Provider Student in an Organized Health Care Education/Training Program
DX: M19.012 Primary osteoarthritis, left shoulder (principal); M25.412 Effusion, left shoulder; M75.42 Impingement syndrome of left shoulder
CPT/HCPCS: 20610; 76942; 87070; 87075; 87205; 88108; 88305; 88313; 89050; 89060

== ENCOUNTER → 2025-01-11 | Outpatient (CLI) | payer MEDICARE, SELFPAY | END | disposition home or self-care (01) | PROVIDERS: PCP Family Medicine | DX: I44.2 Atrioventricular block, complete (principal); I48.0 Paroxysmal atrial fibrillation | CPT/HCPCS: 93306; Q9957; A4216 ==

== ENCOUNTER → 2025-01-24 | Outpatient (CLI) | payer MEDICARE, SELFPAY ==
[2025-01-24 12:44] LABS: Hematocrit 43.6 % (37-47); Hemoglobin 13.6 g/dL (12.0-15.0); Immature Granulocytes Count 0.030 X10^3/uL (0.0-0.0); Mean Corp Hgb Conc 31.2 g/dL (32-36); Mean Corpuscular Volume 86.5 fL (81-99); Mean Platelet Vol. 10.8 fl (6.2-12.0); NRBC Flagged by Analyzer 0 % (0-5); POSITIVE DIFFERENTIAL YES; Platelet Count 266 K/mm3 (150-450); RBC Distribution Width CV 14.3 % (11.6-14.6); RBC Distribution Width SD 45.3 fl (35.1-43.9); Red Blood Count 5.04 M/mm3 (4.2-5.4); White Blood Count 6.3 K/mm3 (4.4-11.0)
[2025-01-24 13:13] LABS: AST(SGOT) 27 U/L (<=31); Alanine Aminotransfer ALT/SGPT 34 U/L (<=34); Albumin, Serum 4.2 g/dL (3.4-4.8); Alkaline Phosphatase 76 U/L (35-104); Anion Gap 14 (5-15); BUN 27 mg/dL (4-19); BUN/Creat Ratio 36.9 RATIO (10-20); Calcium,Total 12.5 mg/dL (7.6-11.0); Carbon Dioxide 20.3 mmol/L (21.0-32.0); Chloride 107 mmol/L (98-108); Globulin 2.8 g/dL (2.2-4.2); Glucose 154 mg/dL (70-99); Potassium 4.3 mmol/L (3.3-5.1)
== END | disposition home or self-care (01) ==
LOC: MTLAB 09:33
PROVIDERS: PCP Family Medicine; Referring Provider Psychiatry & Neurology Neurology; Visit Provider Psychiatry & Neurology Neurology
DX: I10 Essential (primary) hypertension (principal); G35.D Multiple sclerosis, unspecified
CPT/HCPCS: 36415; 80053; 85025

== ENCOUNTER 2025-01-30 12:17 | Outpatient (CLI) | payer MEDICARE, SELFPAY ==
[2025-01-30 12:36] VITALS: BP 148/84; PULSE 85; RESP 16; TEMP 35.7; O2SAT 96; BMI 41.1
--- OUTSIDE RECORDS SUMMARY | 2025-01-30 12:37 | XMS RPT_ITS | CCD ---
Author Organization [facility] Care Team Providers Care Mat Puncher Name Role Phone MICKI MCCRACKEN Unavailable Unavailable EDMUNDO CRUZ Unavailable Unavailable MICKI MCCRACKEN Unavailable Unavailable EDMUNDO CRUZ Unavailable Unavailable Edmundo Cruz MD Primary Care Provider Liang Hanna MD Unavailable Anjel NUNEZ, Da Benjamin Unavailable Kimi Morris MD Unavailable Dr. Edmundo Cruz Primary Care Provider Dr. Edmundo Cruz Referring Provider [phone] Brittany TELECOMMUNICATION SYSTEMS DESIGNER, TELECOMMUNICATION SYSTEMS DESIGNER-Manuel Tucker Attending Provider Dr. Gonzalez Fernandez Attending Provider [phone] Edmundo Cruz MD Primary Care Provider Liang Hanna MD Unavailable [phone] Da De La Rosa MD Unavailable Kimi Morris DO Unavailable Kimi Morris DO Unavailable Dr. Edmundo Cruz Primary Care Provider Dr. Edmundo Cruz Referring Provider Dr. García Clemente Attending Provider Shilpi TELECOMMUNICATION SYSTEMS DESIGNER, TELECOMMUNICATION SYSTEMS DESIGNER-C Kathy Attending Provider [phone] Dr. Colin Palomo Attending Provider Dr. García Clemente Referring Provider Edmundo Cruz MD Primary Care Provider Jacques NUNEZ, Glenn Unavailable Anjel NUNEZ, Da Chhaganlal Unavailable Jacques NUNEZ, Liang Ochoa Unavailable Edmundo Cruz MD Primary Care Provider Jacques NUNEZ, Glenn Unavailable Anjel NUNEZ, Da Chhaganlal Unavailable Kimi Morris DO Unavailable Jacques NUNEZ, Glenn Unavailable Dr. Edmundo Cruz Primary Care Provider Dr. Edmundo Cruz Referring Provider Dr. García Clemente Attending Provider Dr. Tarik Blair Attending Provider Dr. Edmundo Cruz Primary Care Provider Dr. Edmundo Cruz Referring Provider Dr. García Clemente Attending Provider Edmundo Cruz MD Primary Care Provider Anjel NUNEZ, Da Chhaganlal Unavailable Kimi Ayala MD Unavailable [place] CHIEF YEOMAN.CHILDB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, Sophia Unavailable Chucho CHIEF YEOMAN.CHILDB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, Deion Unavailable Dr. Edmundo Cruz MD Primary Care Provider [phone] Dr. Edmundo Cruz MD Referring Provider Dr. García Clemente MD Attending Provider Dr. García Clemente MD Referring Provider Dr. Dylan Coronado DO Attending Provider Dr. Dylan Coronado DO Referring Provider [phone] Nancy NUNEZ, Dr. Ayala Primary Care Provider Nancy NUNEZ, Dr. Ayala Referring Provider Bryn NUNEZ, Dr. Mariano Attending Provider [phone] Bryn NUNEZ, Dr. Mariano Referring Provider [phone] [place] CHIEF YEOMAN.CHILDB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, Sophia Unavailable Unavail able [employer] CHIEF YEOMAN.CHILDB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, Sophia Unavailable [place] CHIEF YEOMAN.CHILDB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, Sophia Unavailable Shilpi MCKEON-CKathy Attending Provider [employer] CHIEF YEOMAN.CHILDB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, Sophia Ida Unavailable EDMUNDO CRUZ Primary Care Unavailable DA DE LA ROSA Attending Unavaila ble EDMUNDO CRUZ Referring Unavailable EDMUNDO CRUZ Primary Care Unavailable BARONJERRI Scott Attending Unavailable BARONJERRI Scott Referring Unavailable EDMUNDO CRUZ Primary Care Unavailable EDMUNDO CRUZ Primary Care Unavailable KIMI AYALA Referring Unavailable EDMUNDO CRUZ Primary Care Unavailable LANDON JONES Attending Unavailable BARONJERRI Referring Unavailable ELDERBROEDMUNDO JORDAN Primary Care Unavailable PROVIDER, UNKNOWN Referring Unavailable EDMUNDO CRUZ Primary Care Unavailable EDMUNDO CRUZ Primary Care Unavailable BENDARAM, NARCISA NEWTON Attending Unavaila ble AYAD RUSSELLE Referring Unavailable ELDERBROCK, EDMUNDO Taylor Primary Care Unavailable BENDARAM, NARCISA NEWTON Referring Unavaila ble ELDERBROCK, EDMUNDO Taylor Primary Care Unavailable BARBARAARAM, NARCISA NEWTON Attending Unavaila ble EDMUNDO CRUZ Primary Care Unavailable SOPHIA CASTILLO Referring Unavailabl e ELDERBROCKEDMUNDO Primary Care Unavailable ELDEREDMUNDO MORENO Attending Unavailable EDMUNDO CRUZ Referring Unavailable EDMUNDO CRUZ Primary Care Unavailable SOPHIA CASTILLO Referring Unavailabl e ELDERBROEDMUNDO JORDAN Primary Care Unavailable EDMUNDO CRUZ Referring Unavailable ZAIRA SARKAR Attending Unavailable ELDERBROCK, EDMUNDO D Primary Care Unavailable BENDARAM, NARCISA NEWTON Attending Unavaila ble ELDERBROCK, EDMUNDO D Primary Care Unavailable BENDARAM, NARCISA NEWTON Attending Unavaila ble BENDARAM, NARCISA NEWTON Referring Unavaila ble ELDERBROCK, EDMUNDO D Primary Care Unavailable SOPHIA CASTILLO Referring Unavailabl e ELDERBROCK, EDMUNDO D Primary Care Unavailable DE LA ROSA, DA CHHAGANLAL Referring Unavaila ble ELDERBROCK, EDMUNDO D Primary Care Unavailable DE LA ROSA, DA CHHAGANLAL Referring Unavaila ble ELDERBROCK, EDMUNDO D Primary Care Unavailable DE LA ROSA, DA CHHAGANLAL Referring Unavaila ble ELDERBROCK, EDMUNDO D Primary Care Unavailable SOPHIA CASTILLO Attending Unavailabl e ELDERBROCK, EDMUNDO D Primary Care Unavailable ZAIRA SARKAR Referring Unavailable ELDERBROCK, EDMUNDO D Primary Care Unavailable ELDERBROCK, EDMUNDO D Referring Unavailable EJ LEE Attending Unavailable ELDERBROCK, EDMUNDO D Primary Care Unavailable Spittle, Dylan Attending Unavailable Elderbrock, Edmundo Primary Care Unavailable Elderbrock, Edmundo Primary Care Unavailable Baddour, García Attending Unavailable Baddour, García Referring Unavailable Jeramie, Robert Attending Unavailable Elderbrock, Edmundo Primary Care Unavailable Shilpi TELECOMMUNICATION SYSTEMS DESIGNER, Kathy Attending Unavailable Elderbrock, Edmundo Primary Care Unavailable Elderbrock, Edmundo Referring Unavailable Baddour, García Attending Unavailable Elderbrock, Edmundo Primary Care Unavailable Elderbrock, Edmundo Referring Unavailable Baddour, García Attending Unavailable Elderbrock, Edmundo Referring Unavailable Elderbrock, Edmundo Primary Care Unavailable Baddour, García Attending Unavailable Elderbrock, Edmundo Referring Unavailable Elderbrock, Edmundo Primary Care Unavailable Baddour, García Attending Unavailable Baddour, García Referring Unavailable Elderbrock, Edmundo Primary Care Unavailable Spittle, Dylan Referring Unavailable Spittle, Dylan Attending Unavailable Elderbrock, Edmundo Primary Care Unavailable Elderbrock, Edmundo Primary Care Unavailable Baddour, García Attending Unavailable Baddour, García Referring Unavailable Spittle, Dylan Referring Unavailable Spittle, Dylan Attending Unavailable Elderbrock, Edmundo Primary Care Unavailable CURATI, CALVIN Referring Unavailable CURATI, CALVIN Attending Unavailable Elderbrock, Edmundo Primary Care Unavailable Baddour, García Attending Unavailable Elderbrock, Edmundo Primary Care Unavailable Baddour, García Referring Unavailable Spittle, Dylan Referring Unavailable Spittle, Dylan Attending Unavailable [facility], Edmundo Primary Care Unavailable Baddour, García Attending Unavailable [facility] Primary Care Unavailable Baddour, García Referring Unavailable Baddour, García Referring Unavailable Baddour, García Attending Unavailable [facility], Edmundo Primary Care Unavailable Baddour, García Attending Unavailable Baddour, García Referring Unavailable [facility], Edmundo Primary Care Unavailable Baddour, García Attending Unavailable [facility], [place]ak Primary Care Unavailable Baddour, García Referring Unavailable Allergies Allergy Classification Reported Allergen(s) Allergy Type Date of Onset Reaction(s) Facility (20 sources) Glatir[facility]; Translations: [GLATIRAMER] Drug Allergy 07-20-2018 Itching, Rash [facility] (16 sources) [facility] Drug Allergy 05-28-2021 Itching [facility] Comment on above: itching and redness surrounding injection site (1 source) [facility] Drug Allergy 01-24-2025 [facility] Repository Medications Current Medications Medication Drug Class(es) Dates Sig (Normalized) Sig (Original) acetaminophen 325 mg / HYDROcodone bitartrate 5 mg oral tablet (20 sources) Opioid Agonist Start: 10-08-2023 take 1 tablet by mouth every six hours as needed for pain Hydrocodone-Aceta minophen 5-325 mg tablet Active 1 {tbl} PO EVERY 6 HOURS NEEDED as needed for Pain 10 3 October 08, 2023 Start: 10-05-2018 End: 10-12-2018 Hydrocodone-Acetaminophen 1 TABLET tablet Discontinued 1 {tbl} PO EVERY 4 HOURS NEEDED as needed for Pain 30 10October 05, 2018 October 11, 2018 12:00am October 12, 2018 12:07am Start: 10-05-2018 End: 10-12-2018 take 1 tablet by mouth every four hours as needed Hydrocodone-Acetaminophen Discontinued 1 TABLET PO EVERY 4 HOURS NEEDED 30 10October 05, 2018 October 11, 2018 11:07pm apixaban 5 mg oral tablet (20 sources) Factor Xa Inhibitor Start: 07-20-2018 End: 05-20-2025 take 1 tablet by mouth twice daily apixaban (ELIQUIS) 5 mg tab(s) Indications: History of DVT (deep vein thrombosis) Take 1 tablet by mouth two times a day. 180 tablet 3 05/20/2024 05/20/2025 Active Comment on above: Take 1 tablet by mouth twice daily. Take 1 tablet by roque th two times a day. ascorbic acid 1000 mg oral tablet (16 sources) Vitamin C Start: 05-08-2023 take 1 g by mouth once daily Ascorbic Acid (Vitamin C) (Vitamin C) 1,000 mg tablet Active 1 g PO DAILY 90 90 May 08, 2023 1:00am Start: 07-25-2020 take 1 g by mouth once daily A scorbic Acid (Vitamin C) Active 1 GM PO DAILY July 25, 2020 12:00am aspirin 81 mg chewable tablet (20 sources) Platelet Aggregation Inhibitor, Nonsteroidal Anti-inflammatory Drug Start: 07-20-2018 take 1 tablet by mouth once daily Aspirin 81 MG tablet,chewable Active 81 mg PO DAILY@0800 July 20, 2018 12:00am take 1 tablet by mouth once gus y aspirin, enteric coated (ASPIRIN, ENTERIC COATED) 81 mg EC tablet Take 81 mg by mouth once daily. Active Comment on above: Take 81 mg by mouth once daily. 60 actuat budesonide 0.16 mg/actuat / formoterol fumarate 0.0045 mg/actuat metered dose inhaler (20 sources) Corticosteroid, beta2-Adrenergic Agonist Start: 09-09-2024 take 2 puff(s) by inhalation twice daily as needed SYMBICORT 160-4.5 mcg/actuation inhaler Inhale 2 puffs as instructed two times a day as needed. 10.2 g 5 09/09/2024 Active Start: 09-10-2023 End: 09-10-2023 Budesonide-Formoterol (Symbi lio) 160-4.5 mcg/actuation HFA aerosol inhaler Discontinued 2 NMA INHALATION TWICE A DAY September 10, 2023 12:00am September 10, 2023 9:08am Start: 07-09-2021 End: 06-03-2023 Budesonide-Formoterol (Symbi lio) 160-4.5 mcg/actuation HFA aerosol inhaler Discontinued 2 NMA INHALATION TWICE A DAY 10.2 July 03, 2022 8:14am June 03, 2023 10:44am administer with spacer, rinse mouth after each use Dispense as written Start: 07-09-2021 End: 07-03-2022 take 1 puff(s) by mouth twice daily Budesonide-Formoterol (Symbicort) 160-4.5 mcg/actuation HFA aerosol inhaler Active 2 PUFF INHALATION TWICE A DAY 10.2 July 03, 2022 7:14am administer with spacer, rinse mouth after each use Dispense as written Start: 07-02-2021 End: 07-09-2021 Budesonide-Formoterol (Symbi lio) 160-4.5 mcg/actuation HFA aerosol inhaler Discontinued 2 NMA INHALATION TWICE A DAY 3 July 02, 2021 8:33am July 09, 2021 8:01am administer with spacer, rinse mouth after each use Start: 07-02-2021 End: 07-09-2021 take 1 puff(s) by mouth twice daily Budesonide-Formoterol (Symbicort) 160-4.5 mcg/actuation HFA aerosol inhaler Discontinued 2 PUFF INHALATION TWICE A DAY 3 July 02, 2021 7:33am July 09, 2021 7:01am administer with spacer, rinse mouth after each use Start: 07-02-2021 End: 07-09-2021 take 1 puff(s) by mouth twice daily Budesonide-Formoterol (Symbicort) 160-4.5 mcg/actuation HFA aerosol inhaler Discontinued 2 PUFF INHALATION TWICE A DAY 3 July 02, 2021 8:33am July 09, 2021 8:01am administer with spacer, rinse mouth after each use Start: 07-02-2021 take 1 puff(s) by mo [facility] twice daily Budesonide-Formoterol (Symbicort) 160-4.5 mcg/actuation HFA aerosol inhaler Active 2 PUFF INHALATION TWICE A DAY 3 July 02, 2021 8:33am administer with spacer, rinse mouth after each use Start: 05-03-2021 End: 07-02-2021 Budesonide-Formoterol (Symbi lio) 160-4.5 mcg/actuation HFA aerosol inhaler Discontinued 2 NMA INHALATION TWICE A DAY 3 May 03, 2021 11:43am July 02, 2021 8:33am administer with spacer, rinse mouth after each use Start: 05-03-2021 End: 07-02-2021 take 1 puff(s) by mouth twice daily Budesonide-Formoterol (Symbicort) 160-4.5 mcg/actuation HFA aerosol inhaler Discontinued 2 PUFF INHALATION TWICE A DAY 3 May 03, 2021 10:43am July 02, 2021 7:33am administer with spacer, rinse mouth after each use Start: 05-03-2021 End: 07-02-2021 take 1 puff(s) by mouth twice daily Budesonide-Formoterol (Symbicort) 160-4.5 mcg/actuation HFA aerosol inhaler Discontinued 2 PUFF INHALATION TWICE A DAY 3 May 03, 2021 11:43am July 02, 2021 8:33am administer with spacer, rinse mouth after each use Start: 03-18-2021 End: 05-03-2021 Budesonide-Formoterol (Symbi lio) 160-4.5 mcg/actuation HFA aerosol inhaler Discontinued 2 NMA INHALATION TWICE A DAY 3 March 18, 2021 10:11am May 03, 2021 11:44am administer with spacer, rinse mouth after each use Start: 03-18-2021 End: 05-03-2021 take 1 puff(s) by mouth twice daily Budesonide-Formoterol (Symbicort) 160-4.5 mcg/actuation HFA aerosol inhaler Discontinued 2 PUFF INHALATION TWICE A DAY 3 March 18, 2021 9:11am May 03, 2021 10:44am administer with spacer, rinse mouth after each use Start: 03-18-2021 End: 05-03-2021 take 1 puff(s) by mouth twice daily Budesonide-Formoterol (Symbicort) 160-4.5 mcg/actuation HFA aerosol inhaler Discontinued 2 PUFF INHALATION TWICE A DAY 3 March 18, 2021 10:11am May 03, 2021 11:44am administer with spacer, rinse mouth after each use Start: 02-18-2021 End: 03-18-2021 Budesonide-Formoterol (Symbi lio) 160-4.5 mcg/actuation HFA aerosol inhaler Discontinued 2 NMA INHALATION TWICE A DAY 3 February 18, 2021 10:02am March 18, 2021 10:11am administer with spacer, rinse mouth after each use Start: 02-18-2021 End: 03-18-2021 take 1 puff(s) by mouth twice daily Budesonide-Formoterol (Symbicort) 160-4.5 mcg/actuation HFA aerosol inhaler Discontinued 2 PUFF INHALATION TWICE A DAY 3 February 18, 2021 9:02am March 18, 2021 9:11am administer with spacer, rinse mouth after each use Start: 02-18-2021 End: 03-18-2021 take 1 puff(s) by mouth twice daily Budesonide-Formoterol (Symbicort) 160-4.5 mcg/actuation HFA aerosol inhaler Discontinued 2 PUFF INHALATION TWICE A DAY 3 February 18, 2021 10:02am March 18, 2021 10:11am administer with spacer, rinse mouth after each use Start: 01-17-2021 End: 09-07-2024 take 2 puff(s) by inhalation twice daily as needed SYMBICORT 160-4.5 mcg/actuation inhaler Inhale 2 Puffs as instructed twice daily as needed. 01/17/2021 09/07/2024 Discontinued Start: 11-22-2020 End: 02-18-2021 take 1 puff(s) by mouth twice daily Budesonide-Formoterol (Symbicort) 160-4.5 mcg/actuation HFA aerosol inhaler Discontinued 2 PUFF INHALATION TWICE A DAY 1 November 22, 2020 10:56am February 18, 2021 10:03am administer with spacer, rinse mouth after each use Start: 11-22-2020 End: 02-18-2021 Budesonide-Formoterol (Symbi lio) 160-4.5 mcg/actuation HFA aerosol inhaler Discontinued 2 NMA INHALATION TWICE A DAY 1 November 22, 2020 12:00am February 18, 2021 10:03am administer with spacer, rinse mouth after each use Start: 11-22-2020 End: 02-18-2021 take 1 puff(s) by mouth twice daily Budesonide-Formoterol (Symbicort) 160-4.5 mcg/actuation HFA aerosol inhaler Discontinued 2 PUFF INHALATION TWICE A DAY 2020 11:00pm February 18, 2021 9:03am administer with spacer, rinse mouth after each use Start: 11-22-2020 End: 02-18-2021 take 1 puff(s) by mouth twice daily Budesonide-Formoterol (Symbicort) 160-4.5 mcg/actuation HFA aerosol inhaler Discontinued 2 PUFF INHALATION TWICE A DAY November 22, 2020 12:00am February 18, 2021 10:03am administer with spacer, rinse mouth after each use Comment on above: Inhale 2 Puffs as in structed twice daily as needed. carvedilol 25 mg oral tablet (20 sources) alpha-Adrenergic Zeinab, beta-Adrenergic Zeinab Start: 04-14-2023 End: 06-21-2024 take 0.5 tablet by mouth twice daily carvedilol (COREG) 25 mg tablet Indications: Coronary artery disease involving [employer] coronary artery of [employer] heart without angina pectoris Take 0.5 tablets by mouth two times a day. 90 tablet 3 06/21/2024 Active Start: 05-28-2022 take 25 mg by mouth once Carve dilol Active 25 MG PO ONCE May 28, 2022 1:00am Start: 04-23-2021 End: 05-16-2022 take 0.5 tablet by mouth twice daily carvedilol (COREG) 25 mg tablet Indications: Coronary artery disease involving [employer] coronary artery of [employer] heart without angina pectoris Take 0.5 tablets by mouth twice daily. 90 tablet 3 05/17/2022 Active Start: 07-20-2018 take 1 tablet by roque th twice daily Carvedilol 12.5 MG tablet Active 12.5 mg PO TWICE A DAY July 20, 2018 12:00am Start: 09-04-2015 End: 10-22-2017 Carvedilol 25 MG tablet Disc ontinued 12.5 mg PO TWICE A DAY September 04, 2015 12:00am October 22, 2017 8:33am Start: 09-04-2015 End: 10-22-2017 take 12.5 mg by mouth twice daily Carvedilol Discontinued 12.5 MG PO TWICE A DAY September 03, 2015 11:00pm October 22, 2017 7:33am Comment on above: Take 0.5 tablets by mouth twice daily. Take 0.5 tablets by mouth two times a day. codeine phosphate 2 mg/ml / guaiFENesin 20 mg/ml oral solution (1 source) Opioid Agonist Start: 04-02-2022 End: 04-09-2022 take 5 mL by mouth three times daily as needed codeine-guaiFENesin (ROBITUSSIN AC) 10-100 mg/5 mL syrup Indications: Bacterial pneumonia Take 5 mL by mouth three times daily as needed for up to 7 days. 118 mL 0 04/02/2022 04/09/2022 Active Comment on above: Take 5 mL by mouth t hree times daily as needed for up to 7 days. COMPOUNDED PRESCRIPTION (20 sources) Start: 02-22-2019 COMPOUNDED PRESCRIPTION One pair of shoes to fit over leg brace. Dx: G35; M79.2 1 Each 02/22/2019 Active Start: 02-22-2019 COMPOUNDED PRE SCRIPTION One pair of shoes to fit over leg brace. Dx: G35; M79.2 1 Each 0 02/22/2019 Active Comment on above: One pair of shoes to fit over leg brace. Dx: G35; M79.2 Cranberry (15 sources) Non-Standardized Food Allergenic Extract, Non-Standardized Plant Allergenic Extract Start: 09-10-2023 take 1 capsule by mouth once daily at mealtime Cranberry 500 mg capsule Active 500 mg PO DAILY September 10, 2023 12:00am administer with meals Start: 07-25-2020 take 500 mg by mouth once daily at mealtime Cranberry Extract Active 500 MG PO DAILY July 25, 2020 8:31am administer with meals Start: 07-25-2020 take 500 mg by mouth once daily at mealtime Cranberry Extract Active 500 MG PO DAILY July 25, 2020 12:00am administer with meals cyclobenzaprine hydrochloride 10 mg oral tablet (5 sources) Muscle Relaxant Start: 05-08-2023 take 1 tablet by mouth three times daily as needed for muscle spasms Cyclobenzaprine 10 mg tablet Active 10 mg PO THREE TIMES A DAY as needed for muscle spasm 31 10May 08, 2023 1:00am dimethyl fumarate 240 mg delayed release oral capsule (20 sources) Start: 07-26-2020 End: 07-30-2024 take 1 capsule by mouth twice daily dimethyl fumarate (TECFIDERA) [address] Take 1 capsule by mouth twice daily. 12/21/2020 Active Start: 07-26-2020 End: 08-02-2020 take 1 capsule by mouth twice daily Dimethyl Fumarate 120 mg capsule,delayed release(DR/EC) Discontinued 120 mg PO TWICE A DAY 14 July 26, 2020 12:00am August 01, 2020 12:00am August 02, 2020 12:02am Comment on above: Take 1 capsule by mo [facility] twice daily. doxycycline hyclate 100 mg oral tablet (1 source) Tetracycline-class Drug Start: 04-02-20 End: 04-12-20 take 1 tablet by mouth twice daily doxycycline (VIBRA-TABS) 100 mg tablet Indications: Bacterial pneumonia Take 1 tablet by mouth twice daily for 10 days. 20 tablet 0 04/02/2022 04/12/2022 Active Comment on above: Take 1 tablet by [facility] twice daily for 10 days. DULoxetine 60 mg delayed release oral capsule (20 sources) Serotonin and Norepinephrine Reuptake Inhibitor Start: 11-15-19 End: 07-31-19 take 1 capsule by mouth twice daily DULoxetine (CYMBALTA) 60 mg capsule Take 60 mg by mouth two times a day. 11/14/2022 Active Start: 10-21-2022 End: 05-05-2024 take 1 capsule by mouth once daily in the evening Duloxetine 30 mg capsule,delayed release(DR/EC) Discontinued 30 mg PO EVERY EVENING September 15, 2023 9:37am March 17, 2024 3:20pm Start: 04-21-2022 End: 06-23-2022 take 1 capsule by mouth once daily Duloxetine 30 mg capsule,delayed release(DR/EC) Discontinued 30 mg PO DAILY April 21, 2022 1:00am June 23, 2022 9:19am Start: 04-21-2022 End: 03-17-2024 take 1 capsule by mouth once daily in the morning Duloxetine 60 mg capsule,delayed release(DR/EC) Discontinued 60 mg PO EVERY MORNING September 15, 2023 9:37am March 17, 2024 3:21pm Comment on above: take 1 capsule by mo [facility] every day in the evening ergocalciferol 1.25 mg oral capsule (17 sources) Provitamin D2 Compound Start: End: take 1 capsule by mouth every week ergocalciferol 50,000 unit capsule (VITAMIN D2, DRISDOL) Indications: Vitamin D deficiency, unspecified TAKE 1 CAPSULE BY MOUTH ONE TIME A WEEK. 8 capsule 08/25/2024 Active esomeprazole 40 mg delayed release oral capsule (20 sources) Proton Pump Inhibitor Start: End: take 1 capsule by mouth once daily before breakfast esomeprazole (NEXIUM) 40 mg capsule Indications: Gastroesophageal reflux disease, unspecified whether esophagitis present Take 1 capsule by mouth daily before breakfast. 1/2 hr before meal. 90 capsule 3 07/28/2024 Active Comment on above: Take 1 capsule by mo ut daily before breakfast. 1/2 hr before meal. fenofibrate 145 mg oral tablet (20 sources) Peroxisome Proliferator Receptor alpha Agonist Start: End: take 1 tablet by mouth once daily fenofibrate nanocrystallized (TRICOR) 145 mg tablet Indications: Hyperlipidemia, unspecified hyperlipidemia type Take 1 tablet by mouth once daily. 90 tablet 3 07/21/2024 Active Comment on above: Take 1 tablet by roque th once daily. ferrous sulfate 325 mg oral tablet (20 sources) Start: Ferrous Sulfate 325 MG tablet Active 65 mg PO DAILY July 20, 2018 12:00am Start: 07-20-2018 take 65 mg by mouth once daily Ferrous Sulfate Active 65 MG PO DAILY July 19, 2018 11:00pm take 1 tablet by roque th once daily at breakfast ferrous sulfate 325 mg (65 mg iron) tablet Take 325 mg by mouth daily with breakfast. Active Comment on above: Take 325 mg by mouth daily with breakfast. 60 actuat formoterol fumarate 0.005 mg/actuat / mometasone furoate 0.2 mg/actuat metered dose inhaler (7 sources) Corticosteroid, beta2-Adrenergic Agonist Start: 5 take 1 puff(s) by inhalation twice daily DULERA 200-5 mcg/actuation inhaler Inhale 1 puff as instructed two times a day. 09/19/2024 Active gabapentin 800 mg oral tablet (20 sources) Anti-epileptic Agent Start: End: 5 take 1 tablet by mouth three times daily gabapentin (NEURONTIN) 800 mg tablet Indications: Multiple sclerosis (HCC) Take 800 mg by mouth three times a day. 02/08/2021 Active Start: 02-08-2021 End: 09-10-2023 take 1 tablet by mouth four times daily Gabapentin 800 mg tablet Discontinued 800 mg PO 4 TIMES DAILY April 30, 2023 1:00am September 10, 2023 8:49am Start: 09-13-2020 End: 03-18-2021 take 1 tablet by mouth three times daily Gabapentin 600 mg tablet Discontinued 600 mg PO THREE TIMES A DAY February 14, 2021 7:14pm March 18, 2021 12:09pm Start: 08-02-2020 End: 12-18-2020 take 1 tablet by mouth three times daily Gabapentin 800 mg tablet Discontinued 800 mg PO THREE TIMES A DAY September 13, 2020 12:00am December 18, 2020 9:13pm Start: 07-25-2020 End: 07-26-2020 take 1 tablet by mouth three times daily Gabapentin 800 mg tablet Discontinued 800 mg PO THREE TIMES A DAY July 25, 2020 12:00am July 26, 2020 8:03pm Start: 07-20-2018 End: 07-25-2020 take 1 tablet by mouth three times daily at mealtime Gabapentin 600 MG tablet Discontinued 600 mg PO 3 TIMES DAILY WITH MEALS July 20, 2018 12:00am July 25, 2020 8:28am Comment on above: Take 1 tablet by roque th four times daily. levoFLOXacin 750 mg oral tablet (1 source) Quinolone Antimicrobial Start: 04-15-19 End: 04-22-19 take 1 tablet by mouth once daily levoFLOXacin (LEVAQUIN) 750 mg tablet Indications: Bacterial pneumonia Take 1 tablet by mouth once daily for 7 days. 7 tablet 0 04/15/2022 04/22/2022 Active Comment on above: Take 1 tablet by roque th once daily for 7 days. losartan potassium 50 mg oral tablet (20 sources) Angiotensin 2 Receptor Zeinab Start: 07-21-19 End: 07-21-19 take 1 tablet by mouth once daily losartan (COZAAR) 50 mg tablet Indications: Essential hypertension Take 1 tablet by mouth once daily. 90 tablet 3 07/21/2024 Active Comment on above: Take 1 tablet by roque th once daily. magnesium oxide 400 mg oral tablet (20 sources) Start: 07-21-19 End: 06-10-19 take 1 tablet by mouth twice daily magnesium oxide (MAGOX) 400 mg (241.3 mg magnesium) tablet Indications: Medication refill Take 1 tablet by mouth two times a day. 180 tablet 3 06/10/2023 Active Comment on above: Take 1 tablet by roque th twice daily. Take 1 tablet by roque th two times a day. Mometasone-Formoterol (Dulera) 200-5 mcg/actuation HFA aerosol inhaler (8 sources) Start: 09-10-19 Mometasone-Formotero l (Dulera) 200-5 mcg/actuation HFA aerosol inhaler Active 2 NMA INHALATION TWICE A DAY 3 September 10, 2023 12:00am Start: 06-03-2023 End: 09-10-2023 Mometasone-Formoterol (Duler a) 200-5 mcg/actuation HFA aerosol inhaler Discontinued 2 NMA INHALATION TWICE A DAY 13 June 03, 2023 1:00am September 10, 2023 8:47am multivitamin (MULTIPLE VITAMINS) tablet (20 sources) Start: 08-30-2013 take 1 tablet by mouth once daily multivitamin (MULTIPLE VITAMINS) tablet Take 1 tablet by mouth once daily. 0 08/30/2013 Active Comment on above: Take 1 tablet by roque once daily. Multivitamin 1 EACH tablet (4 sources) Start: 07-20-2018 Multivitamin 1 EACH tablet Active 1 NMA PO DAILY July 20, 2018 12:00am Multivitamin preparation (12 sources) Start: 07-20-2018 Multivitamin A ctive 1 EACH PO DAILY July 20, 2018 10:47am Start: 07-20-2018 Multivitamin A ctive 1 EACH PO DAILY July 19, 2018 11:00pm Start: 07-20-2018 Multivitamin A ctive 1 EACH PO DAILY July 20, 2018 12:00am nitrofurantoin, macrocrystals 25 mg / nitrofurantoin, monohydrate 75 mg oral capsule (4 sources) Nitrofuran Antibacterial Start: 02-03-2024 End: 02-10-2024 take 1 capsule by mouth twice daily at mealtime nitrofurantoin monohydrate and macrocrystal (MACROBID) 100 mg capsule Take 1 capsule by mouth two times a day with meals for 7 days. 14 capsule 02/03/2024 02/10/2024 Active nitroglycerin 0.4 mg sublingual tablet (20 sources) Nitrate Vasodilator Start: 09-12-2014 nitroglycerin sublingual (NITROQUICK) 0.4 mg SL tablet Indications: CAD (coronary artery disease) Dissolve 1 tablet under the tongue every 5 minutes as needed for Chest Pain. 1 Bottle of 25 0 09/12/2014 Active Comment on above: Dissolve 1 tablet un jaun the tongue every 5 minutes as needed for Chest Pain. pravastatin sodium 40 mg oral tablet (20 sources) HMG-CoA Reductase Inhibitor Start: 10-16-2022 End: 12-08-2024 take 1 tablet by mouth once daily at bedtime pravastatin (PRAVACHOL) 40 mg tablet Indications: Hyperlipidemia, unspecified hyperlipidemia type Take 1 tablet by mouth daily at bedtime. 90 tablet 3 12/09/2024 Active Start: 07-20-2018 End: 09-10-2023 take 1 tablet by mouth at bedtime Pravastatin 20 MG tablet Discontinued 20 mg PO AT BEDTIME July 20, 2018 12:00am September 10, 2023 8:43am Comment on above: Take 1 tablet by roque th daily at bedtime. predniSONE 10 mg oral tablet (20 sources) Start: 03-17-2024 End: 03-29-2024 take 1 tablet by mouth once daily predniSONE (DELTASONE) 10 mg tablet Take 10 mg by mouth once daily. 03/17/2024 03/29/2024 Active Start: 12-15-2023 End: 03-17-2024 Prednisone 10 mg tablet Disc ontinued 0 .Route .COMPLEX 33 January 14, 2024 4:27pm March 17, 2024 9:44am 6 tabs x 3 day; 5 tabs x 1 day; 4 tabs x 1 day; 3 tabs x 1 day; 2 tabs x 1 day; 1 tab x 1 day Start: 04-02-2022 End: 04-07-2022 take 2 tablets by mouth once daily predniSONE (DELTASONE) 20 mg tablet Indications: Bacterial pneumonia Take 2 tablets by mouth once daily for 5 days. 10 tablet 0 04/02/2022 04/07/2022 Active Start: 02-03-2022 End: 10-21-2022 Prednisone 10 mg tablet Disc ontinued 0 .Route .COMPLEX February 03, 2022 12:00am October 21, 2022 8:27am 6 tabs x 1 day; 5 tabs x 1 day; 4 tabs x 1 day; 3 tabs x 1 day; 2 tabs x 1 day; 1 tab x 1 day Start: 02-03-2022 End: 10-21-2022 Prednisone Discontinued 0 .R oute .COMPLEX February 02, 2022 11:00pm October 21, 2022 7:27am 6 tabs x 1 day; 5 tabs x 1 day; 4 tabs x 1 day; 3 tabs x 1 day; 2 tabs x 1 day; 1 tab x 1 day Start: 12-18-2020 End: 01-15-2021 Prednisone 10 mg tablet Disc ontinued 0 .Route .COMPLEX December 18, 2020 12:00am January 15, 2021 9:05am 6 tabs x 1 day; 5 tabs x 1 day; 4 tabs x 1 day; 3 tabs x 1 day; 2 tabs x 1 day; 1 tab x 1 day Start: 12-18-2020 End: 01-15-2021 Prednisone Discontinued 0 .R oute .COMPLEX December 17, 2020 11:00pm January 15, 2021 8:05am 6 tabs x 1 day; 5 tabs x 1 day; 4 tabs x 1 day; 3 tabs x 1 day; 2 tabs x 1 day; 1 tab x 1 day Comment on above: Take 2 tablets by mo ut once daily for 5 days. Take 4 tabs daily fo r 3 days, then 2 tabs daily for 3 days, then 1 tab daily for 3 days with food. Right AFO (14 sources) Start: 2021 Right AFO Active 0 .Route .MEDSUPPLY November 20, 2021 11:00pm Evaluate left AFO; patient having skin irritation ICD 10: G35 and R29.898 Start: 2021 Right AFO Acti ve 0 .Route .MEDSUPPLY 2021 12:00am Evaluate left AFO; patient having skin irritation ICD 10: G35 and R29.898 spacer (16 sources) Start: 11-22-2020 spacer Active 0 .ROUTE .MEDSUPPLY November 22, 2020 10:55am As directed Start: 11-22-2020 spacer Active 0 .ROUTE .MEDSUPPLY 2020 11:00pm As directed Start: 11-22-2020 spacer Active 0 .ROUTE .MEDSUPPLY November 22, 2020 12:00am As directed spironolactone 25 mg oral tablet (20 sources) Aldosterone Antagonist Start: 07-20-2018 End: 07-27-2024 take 1 tablet by mouth once daily spironolactone (ALDACTONE) 25 mg tablet Indications: Essential hypertension , Coronary artery disease involving [place] coronary artery of [place] heart without angina pectoris Take 1 tablet by mouth once daily. 90 tablet 3 07/28/2024 Active Comment on above: Take 1 tablet by roque th once daily. Completed/Discontinued Medications Medication Drug Class(es) Dates Sig (Normalized) Sig (Original) acetaminophen 325 mg / oxyCODONE hydrochloride 5 mg oral tablet (20 sources) Opioid Agonist Start: 05-08-2023 End: 03-17-2024 Oxycodone-Acetamino phen (Percocet) 5-325 mg tablet Discontinued 1 {tbl} PO EVERY 6 HOURS as needed for pain 07 11May 08, 2023 March 17, 2024 9:44am Start: 09-21-2018 End: 09-28-2018 Oxycodone-Acetaminophen 1 TA BLET tablet Discontinued 1 - 2 {tbl} PO EVERY 6 HOURS NEEDED as needed for Pain 15 7 September 21, 2018 12:00am September 27, 2018 12:00am September 28, 2018 12:07am Start: 09-21-2018 End: 09-28-2018 take 1 tablet by mouth every six hours as needed Oxycodone-Acetaminophen Discontinued 1 - 2 TABLET PO EVERY 6 HOURS NEEDED 15 7 September 20, 2018 11:00pm September 27, 2018 11:07pm [id number] 200 actuat albuterol 0.09 mg/actuat metered dose inhaler (20 sources) beta2-Adrenergic Agonist Start: 04-19-2021 take 1 puff(s) by inhalation every six hours Albuterol Sulfate (Proair Hfa) 90 mcg/actuation HFA aerosol inhaler Active 2 PUFF INHALATION EVERY 6 HOURS 8.5 April 19, 2021 4:50pm Start: 02-18-2021 End: 04-19-2021 take 1 puff(s) by inhalation every six hours Albuterol Sulfate (Proair Hfa) 90 mcg/actuation HFA aerosol inhaler Discontinued 2 PUFF INHALATION EVERY 6 HOURS 8.February 18, 2021 10:07am April 19, 2021 4:50pm Start: 09-12-2020 End: 10-30-2023 Albuterol Sulfate (Proair Hf a) 90 mcg/actuation HFA aerosol inhaler Discontinued 2 NMA INHALATION EVERY 6 HOURS as needed for shortness of breath or wheezing 8.April 19, 2021 4:50pm September 10, 2023 9:09am Start: 09-12-2020 End: 04-19-2021 take 1 puff(s) by inhalation every six hours Albuterol Sulfate (Proair Hfa) 90 mcg/actuation HFA aerosol inhaler Discontinued 2 PUFF INHALATION EVERY 6 HOURS 8.5 February 18, 2021 9:07am April 19, 2021 3:50pm take 2 puff(s) by in halation every four hours as needed ALBUTEROL SULFATE HFA INHALATION Inhale 2 Puffs as instructed every 4 hours as needed. Active ALBUTEROL SULFAT E HFA INHALATION Inhale as instructed. Active ALBUTEROL SULFAT E HFA INHALATION Inhale as instructed. 0 Active Comment on above: Inhale as instructed . amantadine hydrochloride 100 mg oral capsule (16 sources) Influenza A M2 Protein Inhibitor Start: 03-18-20 End: 05-21-19 22 take 1 capsule by mouth once daily Amantadine Hcl 100 mg capsule Discontinued 100 mg PO DAILY March 18, 2021 1:00am May 21, 2021 11:13am baclofen 20 mg oral tablet (20 sources) gamma-Aminobutyric Acid-ergic Agonist Start: 07-27-19 End: 07-31-19 25 take 1 tablet by mouth once daily in the morning, then take 1 tablet by mouth once daily in the evening, then take 2 tablets by mouth once daily at bedtime Baclofen 20 mg tablet Discontinued 0 .ROUTE .COMPLEX 360 March 17, 2024 3:19pm July 30, 2024 5:38pm 1 tablet PO QAM, 1 tab PO QPM and 2 tablets PO QHS Start: 07-20-2018 End: 03-18-2021 take 1 tablet by mouth three times daily as needed, then take 2 tablets by mouth at bedtime as needed baclofen (LIORESAL) 20 mg tablet Indications: Multiple sclerosis (HCC) Take by mouth three times daily as needed. 1 in am, 1in afternoon and 2 at bedtime 360 tablet 3 04/12/2020 Active Start: 07-20-2018 End: 07-26-2020 take 1 tablet by mouth twice daily Baclofen 20 MG tablet Discontinued 20 mg PO TWICE A DAY July 20, 2018 12:00am July 26, 2020 8:13pm Start: 07-20-2018 End: 07-26-2020 Baclofen 20 MG tablet Discon tinued 2 {tbl} PO AT BEDTIME July 20, 2018 12:00am July 26, 2020 8:03pm Start: 07-21-2013 End: 10-22-2017 take 1 tablet by mouth four times daily Baclofen 20 MG tablet Discontinued 20 mg PO 4 TIMES DAILY July 21, 2013 12:00am October 22, 2017 8:36am Comment on above: Take by mouth three times daily as needed. 1 in am, 1in afternoon and 2 at bedtime calcium carbonate 1250 mg / cholecalciferol 600 unt oral tablet (5 sources) Vitamin D Start: 05-08-19 End: 09-10-19 24 Calcium Carbonate-Vitamin D3 (Os-Rex 500 + D3) 500 mg-15 mcg (600 unit) tablet Discontinued 1 {tbl} PO DAILY 90 90 May 08, 2023 1:00am September 10, 2023 8:48am cephalexin 500 mg oral capsule (20 sources) Cephalosporin Antibacterial Start: 10-08-19 End: 03-17-20 take 1 capsule by mouth three times daily Cephalexin 500 mg capsule Discontinued 500 mg PO THREE TIMES A DAY 21 7 October 08, 2023 12:00am March 17, 2024 9:42am Start: 10-05-2018 End: 10-09-2018 take 1 capsule by mouth every twelve hours Cephalexin 500 MG capsule Discontinued 500 mg PO EVERY 12 HOURS 6 3 October 05, 2018 12:00am October 07, 2018 12:00am October 09, 2018 12:08am Start: 07-22-2018 End: 07-25-2020 take 1 capsule by mouth at bedtime Cephalexin 250 MG capsule Discontinued 250 mg PO AT BEDTIME July 22, 2018 12:00am July 25, 2020 8:30am start the Keflex at bedtime when you are finished with the Duricef Start: 06-01-2017 End: 10-22-2017 take 1 capsule by mouth every six hours Cephalexin 500 MG capsule Discontinued 500 mg PO EVERY 6 HOURS 40 June 01, 2017 1:00am October 22, 2017 8:36am cholecalciferol 1.25 mg oral capsule (20 sources) Vitamin D Start: 06-03-2024 End: 08-25-2024 take 1 capsule by mouth every week cholecalciferol, Vitamin D3, (VITAMIN D3) 1,250 mcg (50,000 unit) cap capsule Indications: Vitamin D deficiency Take 1 capsule by mouth one time a week. 15 capsule 06/03/2024 08/25/2024 Discontinued Start: 09-15-2023 End: 07-30-2024 take 1 capsule by mouth every month Cholecalciferol (Vitamin D3) 1,250 mcg (50,000 unit) capsule Discontinued 1250 ug PO EVERY MONTH March 17, 2024 3:20pm July 30, 2024 5:38pm Start: 09-17-2020 End: 12-18-2020 take 1 capsule by mouth once daily Cholecalciferol (Vitamin D3) 25 mcg (1,000 unit) capsule Discontinued 25 ug PO DAILY September 17, 2020 12:00am December 18, 2020 9:14pm Start: 08-14-2020 take 1 capsule by [facility] once daily Cholecalciferol, Vitamin D3, 25 mcg (1,000 unit) cap Take 1 capsule by mouth once daily. 0 08/14/2020 Active Start: 07-25-2020 End: 09-17-2020 take 1 capsule by mouth once daily Cholecalciferol (Vitamin D3) 125 mcg (5,000 unit) capsule Discontinued 1000 U PO DAILY July 25, 2020 12:00am September 17, 2020 10:27am Start: 07-20-2018 End: 07-25-2020 take 1 capsule by mouth once daily Cholecalciferol (Vitamin D3) 2,000 UNIT capsule Discontinued 2000 U PO DAILY July 20, 2018 12:00am July 25, 2020 8:30am End: 03-28-2024 take 1 capsule by mouth every week cholecalciferol, Vitamin D3, (VITAMIN D3) 1,250 mcg (50,000 unit) cap capsule Take 50,000 Units by mouth one time a week. 03/28/2024 Discontinued Comment on above: Take 1 capsule by [facility] once daily. cholecalciferol, vitamin D3, (VITAMIN D3 ORAL) (9 sources) End: 06-03-2024 take 1 tablet by mouth every month cholecalciferol, vitamin D3, (VITAMIN D3 ORAL) Take 1 tablet by mouth once every month. OTC - Pt unsure of dose 06/03/2024 Discontinued take 1 tablet by mouth every thu cholecalciferol, vitamin D3, (VITAMIN D3 ORAL) Take 1 tablet by mouth once every month. OTC - Pt unsure of dose Active diroximel fumarate 231 mg delayed release oral capsule (20 sources) Start: 04-30-2023 End: 03-17-2024 take 1 capsule by mouth twice daily Diroximel Fumarate (Vumerity) 231 mg capsule,delayed release(DR/EC) Discontinued 231 mg PO TWICE A DAY 60 September 15, 2023 9:35am March 17, 2024 10:15am Start: 02-11-2022 End: 07-30-2024 take 2 capsules by mouth twice daily VUMERITY 231 mg capsule, delayed release Take 462 mg by mouth two times a day. Dr. Clemente 02/11/2022 Active Start: 08-01-2021 End: 09-25-2022 take 1 capsule by mouth twice daily, then take 2 capsules by mouth twice daily Diroximel Fumarate (Vumerity) 231 mg capsule,delayed release(DR/EC) Discontinued 0 .ROUTE .COMPLEX 360 August 01, 2021 12:00am September 25, 2022 6:05pm 1 cap PO BID x 7 days, then 2 caps PO BID thereafter Comment on above: Twice daily-Dr. Pedro heaton estradiol 0.1 mg/ml vaginal cream (16 sources) Estrogen Start: 07-22-2018 End: 07-25-2020 Estradiol 42.5 GM cream Discontinued 1 g VAGINAL EVERY OTHER DAY July 22, 2018 12:00am July 25, 2020 8:30am insert into vagina every MWF Start: 07-22-2018 End: 07-25-2020 Estradiol Discontinued 1 GM VAGINAL EVERY OTHER DAY July 21, 2018 11:00pm July 25, 2020 7:30am insert into vagina every MWF fluticasone propionate 0.05 mg/actuat metered dose nasal spray (11 sources) Corticosteroid Start: 05-27-2018 take 2 spray(s) by mouth once daily fluticasone (FLONASE) 50 mcg/actuation nasal spray Indications: Left chronic serous otitis media Use 2 Sprays in each nostril once daily. Rinse mouth after use. 1 Bottle 0 05/27/2018 Active Comment on above: Use 2 Sprays in each nostril once daily. Rinse mouth after use. Fluticasone Propion-Salmetero l (20 sources) Corticosteroid, beta2-Adrenergic Agonist Start: 06-03-2023 End: 06-03-2023 Fluticasone Propion-Salmeterol (Advair Hfa) 230-21 mcg/actuation HFA aerosol inhaler Discontinued 2 NMA INHALATION TWICE A DAY 3 June 03, 2023 1:00am June 03, 2023 1:59pm Start: 05-29-2021 Fluticasone Pr opion-Salmeterol (Advair Diskus) 500-50 mcg/dose blister with device Active 1 INH INHALATION TWICE A DAY 60 May 29, 2021 5:14pm Start: 05-29-2021 Fluticasone Pr opion-Salmeterol (Advair Diskus) 500-50 mcg/dose blister with device Active 1 INH INHALATION TWICE A DAY 60 May 29, 2021 1:00am Start: 05-28-2021 End: 05-29-2021 take 1 puff(s) by inhalation twice daily Fluticasone Propion-Salmeterol (Advair Hfa) 230-21 mcg/actuation HFA aerosol inhaler Discontinued 2 PUFF INHALATION TWICE A DAY 12 May 28, 2021 11:26am May 29, 2021 5:14pm Start: 05-28-2021 End: 05-29-2021 Fluticasone Propion-Salmeter ol (Advair Hfa) 230-21 mcg/actuation HFA aerosol inhaler Discontinued 2 NMA INHALATION TWICE A DAY May 28, 2021 1:00am May 29, 2021 5:14pm Start: 05-28-2021 End: 05-29-2021 take 1 puff(s) by inhalation twice daily Fluticasone Propion-Salmeterol (Advair Hfa) 230-21 mcg/actuation HFA aerosol inhaler Discontinued 2 PUFF INHALATION TWICE A DAY May 28, 2021 12:00am May 29, 2021 4:14pm Start: 05-28-2021 End: 05-29-2021 take 1 puff(s) by inhalation twice daily Fluticasone Propion-Salmeterol (Advair Hfa) 230-21 mcg/actuation HFA aerosol inhaler Discontinued 2 PUFF INHALATION TWICE A DAY May 28, 2021 1:00am May 29, 2021 5:14pm Fluticasone Furoate-Vilanterol (16 sources) Corticosteroid, beta2-Adrenergic Agonist Start: 11-05-2020 End: 11-22-2020 Fluticasone Furoate-Vilanterol (Breo Ellipta) 200-25 mcg/dose blister with device Discontinued 1 INH INHALATION DAILY 60 November 05, 2020 10:22am November 22, 2020 10:55am Start: 11-05-2020 End: 11-22-2020 Fluticasone Furoate-Vilanter ol (Breo Ellipta) 200-25 mcg/dose blister with device Discontinued 1 NMA INHALATION DAILY 60 November 05, 2020 12:00am November 22, 2020 10:55am Start: 11-05-2020 End: 11-22-2020 Fluticasone Furoate-Vilanter ol (Breo Ellipta) 200-25 mcg/dose blister with device Discontinued 1 INH INHALATION DAILY 60 November 04, 2020 11:00pm November 22, 2020 9:55am Start: 11-05-2020 End: 11-22-2020 Fluticasone Furoate-Vilanter ol (Breo Ellipta) 200-25 mcg/dose blister with device Discontinued 1 INH INHALATION DAILY 60 November 05, 2020 12:00am November 22, 2020 10:55am furosemide 40 mg oral tablet (20 sources) Loop Diuretic Start: 08-04-2020 End: 09-12-2020 take 1 tablet by mouth once daily Furosemide 40 MG tablet Discontinued 40 mg PO DAILY August 04, 2020 12:00am September 12, 2020 9:42am Comment on above: Take 40 mg by mouth once daily. 0.5 ml interferon beta-1a 0.044 mg/ml prefilled syringe (11 sources) Recombinant Human Interferon beta Interferon Beta-1a (REBIF) 22 mcg/0.5 mL injection Indications: 3 inj. a week Inject 22 mcg subcutaneously. Indications: 3 inj. a week 0 Active Comment on above: Inject 22 mcg subcut aneously. Indications: 3 inj. a week methylPREDNISolone (20 sources) Corticosteroid Start: 03-17-2024 End: 03-20-2024 take 1000 mg intravenously once daily Methylprednisolone 1,000 mg solution Discontinued 1000 mg IV DAILY 3000 March 17, 2024 1:00am March 19, 2024 1:00am March 20, 2024 1:09am Methylprednisolone 1000 mg IV daily x 3 days. Start: 12-22-2023 End: 12-25-2023 take 1000 mg intravenously once daily Methylprednisolone Discontinued 1000 mg IV DAILY 3000 December 22, 2023 12:50pm December 24, 2023 12:00am December 25, 2023 12:05am Methylprednisolone 1000 mg IV daily for 3 days Start: 12-15-2023 End: 12-18-2023 take 1000 mg intravenously once daily Methylprednisolone Discontinued 1000 mg IV DAILY 3000 December 15, 2023 5:57pm December 17, 2023 12:00am December 18, 2023 12:04am Methylprednisolone 1000 mg IV daily for 3 days Start: 02-03-2022 End: 02-06-2022 take 1000 mg intravenously once daily Methylprednisolone Discontinued 1000 mg IV DAILY 3000 February 03, 2022 12:00am February 05, 2022 12:00am February 06, 2022 12:03am Methylprednisolone 1000 mg IV daily for 3 days Start: 02-03-2022 End: 02-06-2022 take 1000 mg intravenously once daily Methylprednisolone Discontinued 1000 MG IV DAILY 3000 February 02, 2022 11:00pm February 05, 2022 11:03pm Methylprednisolone 1000 mg IV daily for 3 days Start: 02-03-2022 End: 02-06-2022 take 1000 mg intravenously once daily Methylprednisolone Discontinued 1000 MG IV DAILY 3000 3 February 03, 2022 12:00am February 06, 2022 12:03am Methylprednisolone 1000 mg IV daily for 3 days pantoprazole 40 mg delayed release oral tablet (16 sources) Proton Pump Inhibitor Start: 07-20-2018 End: 07-25-2020 take 1 tablet by mouth once daily at breakfast Pantoprazole 40 MG tablet Discontinued 40 mg PO DAILY July 20, 2018 12:00am July 25, 2020 8:30am 30 MINUTES PRIOR TO BREAKFAST regadenoson 0.4 mg injection (LEXISCAN) (2 sources) Start: 03-14-2024 End: 03-14-2024 regadenoson 0.4 mg injection (LEXISCAN) Start: 03-14-2024 End: 03-14-2024 0.4 mg, INTRAVENOUS, DIRE CTED NEEDED, 1 dose, Starting on Thu03/14/24 at 1254, Until Thu03/14/24 at 1020, Per-Protocol - for use during STRESS TEST procedure only, Give 0.4 mg (5 mL) over ~10 seconds, followed immediately by a 5 mL saline flush. Wait 10-20 seconds, then administer the radionuclide myocardial perfusion imaging agent., Cardiac Procedure Med Orders sucralfate 1000 mg oral tablet (20 sources) Aluminum Complex Start: 07-20-2018 End: 07-25-2020 take 1 tablet by mouth three times daily at mealtime Sucralfate 1 GM tablet Discontinued 1 g PO 3 TIMES DAILY WITH MEALS July 20, 2018 12:00am July 25, 2020 8:30am sulfamethoxazole 800 mg / trimethoprim 160 mg oral tablet (16 sources) Dihydrofolate Reductase Inhibitor Antibacterial, Sulfonamide Antimicrobial Start: 09-21-2018 End: 09-24-2018 Sulfamethoxazole- Trimethoprim 1 TABLET tablet Discontinued 1 {tbl} PO TWICE A DAY 6 3 September 21, 2018 12:00am September 23, 2018 12:00am September 24, 2018 12:07am hold the nightly keflex while taking the bactrim, then resume once completed. Start: 09-21-2018 End: 09-24-2018 Sulfamethoxazole-Trimethopri m Discontinued 1 TABLET PO TWICE A DAY 6 3 September 20, 2018 11:00pm September 23, 2018 11:07pm hold the nightly keflex while taking the bactrim, then resume once completed. vitamin b12 1 mg/ml injectable solution (1 source) Vitamin B12 Start: 09-13-2020 End: 09-13-2020 inject 1000 ug by intramuscular injection once cyanocobalamin (vitamin B-12) 1,000 mcg/mL injection solution Discontinued 1000 MCG IM ONCE 1 September 13, 2020 2:13pm September 13, 2020 2:13pm warfarin sodium 5 mg oral tablet (16 sources) Vitamin K Antagonist Start: 03-20-2017 End: 10-22-2017 take 1 tablet by mouth every other day Warfarin 5 MG tablet Discontinued 5 mg PO EVERY OTHER DAY March 20, 2017 1:00am October 22, 2017 8:34am Problems Active Problems Problem Classification Problem Date Documented Date Episodic/Chronic Acquired foot deformities (20 sources) Hammer toe; Translations: [Other hammer toe(s) (acquired), right foot] Onset: 5 10-21-2022 Chronic Asthma (20 sources) Asthma; Translations: [Unspecified asthma, uncomplicated] Onset: 5 Chronic Cardiac dysrhythmias (20 sources) Paroxysmal atrial fibrillation; Translations: [Paroxysmal atrial fibrillation] Onset: 3 Chronic Conduction disorders (20 sources) Cardiac pacemaker in situ; Translations: [Presence of cardiac pacemaker] Onset: 6 09-14-2015 Chronic Congestive heart failure; nonhypertensive (20 sources) Congestive heart failure; Translations: [Heart failure, unspecified] Onset: 3 Chronic Coronary atherosclerosis and other heart disease (20 sources) Coronary atherosclerosis; Translations: [Atherosclerotic heart disease of [place] coronary artery without angina pectoris] Onset: 4 Chronic Deficiency and other anemia (20 sources) Iron deficiency anemia; Translations: [Iron deficiency anemia, unspecified] 10-13-2012 Episodic Diabetes mellitus without complication (6 sources) Increased glucose level; Translations: [Other abnormal glucose] Onset: 5 Episodic Disorders of lipid metabolism (20 sources) Hyperlipidemia; Translations: [Hyperlipidemia, unspecified] Onset: 3 10-12-2012 Chronic Esophageal disorders (20 sources) Gastroesophageal reflux disease; Translations: [Gastro-esophageal reflux disease without esophagitis] Onset: 6 04-08-2021 Chronic Essential hypertension (20 sources) Essential hypertension; Translations: [Essential (primary) hypertension] Onset: 5 Chronic Malaise and fatigue (20 sources) Fatigue; Translations: [Other fatigue] Onset: 3 Episodic Multiple sclerosis (20 sources) Multiple sclerosis; Translations: [Multiple sclerosis] Onset: 3 10-12-2012 Chronic Nutritional deficiencies (20 sources) Vitamin D deficiency; Translations: [Vitamin D deficiency, unspecified] Onset: 3 10-12-2012 Chronic Osteoarthritis (20 sources) Primary osteoarthritis, left shoulder; Translations: [Arthropathy, unspecified, shoulder region] Onset: 5 02-03-2024 Chronic Other acquired deformities (16 sources) Contracture of joint of right foot; Translations: [Contracture, right foot] Onset: 5 07-07-2024 Chronic Other acquired deformities (4 sources) Contracture of joint of foot; Translations: [Contracture, right foot] 05-10-2023 Chronic Other connective tissue disease (20 sources) Neuropathic pain; Translations: [Neuralgia and neuritis, unspecified] 04-08-2021 Episodic Other connective tissue disease (18 sources) Monoparesis - leg; Translations: [Other symptoms and signs involving the musculoskeletal system] 2021 Episodic Other connective tissue disease (10 sources) Muscle weakness of limb; Translations: [Other symptoms and signs involving the musculoskeletal system] 2021 Episodic Other connective tissue disease (6 sources) Pain in left lower leg; Translations: [Pain in limb] Episodic Other connective tissue disease (1 source) Tendinitis of left elbow; Translations: [Other enthesopathies, not elsewhere classified] Episodic Other diseases of bladder and urethra (20 sources) Neurogenic bladder; Translations: [Neuromuscular dysfunction of bladder, unspecified] Onset: 3 08-02-2020 Chronic Other ear and sense organ disorders (1 source) Impacted cerumen in left ear; Translations: [Impacted cerumen, left ear] 02-18-2023 Episodic Other endocrine disorders (7 sources) Primary hyperparathyroidism; Translations: [Primary hyperparathyroidism] 09-29-2024 Chronic Other endocrine disorders (2 sources) Primary hyperparathyroidism; Translations: [Primary hyperparathyroidism (HCC)] Onset: 5 Chronic Other gastrointestinal disorders (20 sources) Irritable bowel syndrome; Translations: [Irritable bowel syndrome without diarrhea] Onset: 3 08-02-2020 Chronic Other gastrointestinal disorders (6 sources) Dysphagia, unspecified; Translations: [Dysphagia, unspecified] Episodic Other lower respiratory disease (16 sources) Hypoxia; Translations: [Hypoxemia] 08-03-2020 Episodic Other lower respiratory disease (1 source) Cough; Translations: [Acute cough] Episodic Other lower respiratory disease (1 source) Cough; Translations: [Acute cough] 04-11-2022 Episodic Other nervous system disorders (20 sources) Hereditary peripheral neuropathy; Translations: [Hereditary and idiopathic neuropathy, unspecified] Onset: 6 11-10-2022 Chronic Other nervous system disorders (20 sources) Idiopathic peripheral neuropathy; Translations: [Hereditary and idiopathic neuropathy, unspecified] Onset: 5 11-10-2022 Chronic Other non-traumatic joint disorders (1 source) Pain in left shoulder; Translations: [Pain in joint, shoulder region] 03-30-2023 Episodic Other nutritional; endocrine; and metabolic disorders (20 sources) Morbid obesity; Translations: [Morbid (severe) obesity due to excess calories] Onset: 3 Chronic Other nutritional; endocrine; and metabolic disorders (7 sources) Morbid (severe) obesity due to excess calories; Translations: [Morbid obesity] Onset: 3 Chronic Other nutritional; endocrine; and metabolic disorders (20 sources) Body mass index 40+ - severely obese; Translations: [Morbid (severe) obesity due to excess calories] Onset: 3 11-17-2022 Chronic Other nutritional; endocrine; and metabolic disorders (12 sources) Hypercalcemia; Translations: [Hypercalcemia] 08-03-2023 Chronic Other nutritional; endocrine; and metabolic disorders (3 sources) Hypercalcemia; Translations: [Hypercalcemia] Onset: 4 Chronic Other nutritional; endocrine; and metabolic disorders (3 sources) Personal history of other endocrine, nutritional and metabolic disease; Translations: [Personal history of nutritional deficiency] 10-21-2022 Episodic Paralysis (20 sources) Spastic hemiplegia; Translations: [Spastic hemiplegia affecting unspecified side] Onset: 2 Chronic Pneumonia (except that caused by tuberculosis or sexually transmitted disease) (2 sources) Bacterial pneumonia; Translations: [Unspecified bacterial pneumonia] Episodic Residual codes; unclassified (20 sources) Obstructive sleep apnea syndrome; Translations: [Obstructive sleep apnea (adult) (pediatric)] 04-08-2021 Chronic Comment on above: Compliant with CPAP Residual codes; unclassified (7 sources) Obstructive sleep apnea (adult) (pediatric); Translations: [Obstructive sleep apnea (adult)(pediatric)] Onset: 1 Chronic Spondylosis; intervertebral disc disorders; other back problems (20 sources) Backache; Translations: [Dorsalgia, unspecified] Onset: 7 10-12-2012 Episodic Transient cerebral ischemia (20 sources) Transient cerebral ischemia; Translations: [Transient cerebral ischemic attack, unspecified] Onset: 5 11-10-2022 Chronic Past or Other Problems Problem Classification Problem Date Documented Da te Episodic/Chronic Administrative/social admission (3 sources) Repeated prescription; Translations: [Encounter for issue of repeat prescription] Onset: 05-05-2024 Episodic Coronary atherosclerosis and other heart disease (1 source) Presence of aortocoronary bypass graft; Translations: [Hx of CABG] Onset: 05-05-2024 Episodic Deficiency and other anemia (1 source) Iron deficiency anemia, unspecified; Translations: [Iron deficiency anemia, unspecified iron deficiency anemia type] Onset: 10-13-2012 Episodic Genitourinary symptoms and ill-defined conditions (20 sources) Retention of urine; Translations: [Retention of urine, unspecified] Onset: 11-10-2022 08-02-2020 Episodic Comment on above: off an on...has self cath'd in the past Immunizations and screening for infectious disease (1 source) Encounter for immunization; Translations: [Encounter for immunization] Onset: 03-07-2024 Episodic Other aftercare (20 sources) Long-term current use of anticoagulant; Translations: [correction (current) use of anticoagulants] Onset: 11-10-2022 09-21-2018 Episodic Comment on above: Eliquis Other connective tissue disease (20 sources) Pain in bilateral lower legs; Translations: [Pain in right lower leg] Onset: 11-10-2022 09-13-2020 Episodic Other connective tissue disease (20 sources) Pain in calf; Translations: [Pain in left lower leg] Onset: 2021 2021 Episodic Other connective tissue disease (20 sources) Neuralgia; Translations: [Neuralgia and neuritis, unspecified] Onset: 12-06-2013 11-10-2022 Episodic Other connective tissue disease (16 sources) Other symptoms and signs involving the musculoskeletal system; Translations: [Other musculoskeletal symptoms referable to limbs] Onset: 07-07-2024 07-07-2024 Episodic Other connective tissue disease (1 source) Neuralgia and neuritis, unspecified; Translations: [Neuropathic pain] Onset: 04-08-2021 Episodic Other connective tissue disease (1 source) Impingement syndrome of left shoulder; Translations: [Impingement syndrome of left shoulder] Onset: 08-26-2024 Episodic Other gastrointestinal disorders (20 sources) Occult blood in stools; Translations: [Other fecal abnormalities] Onset: 05-04-2018 05-04-2018 Episodic Other gastrointestinal disorders (20 sources) Dysphagia; Translations: [Dysphagia, unspecified] Onset: 01-09-2022 04-21-2022 Episodic Other lower respiratory disease (20 sources) Dyspnea on exertion; Translations: [Dyspnea, unspecified] Onset: 12-19-2021 08-03-2020 Episodic Other nervous system disorders (20 sources) Tingling of skin; Translations: [Paresthesia of skin] Onset: 08-13-2015 11-10-2022 Episodic Other nervous system disorders (20 sources) Trigeminal neuralgia; Translations: [Trigeminal neuralgia] Onset: 06-19-2015 11-10-2022 Episodic Other nervous system disorders (20 sources) Acute postoperative pain; Translations: [Other acute postprocedural pain] Onset: 07-07-2024 05-08-2023 Episodic Other nervous system disorders (16 sources) Abnormal gait; Translations: [Unspecified abnormalities of gait and mobility] Onset: 04-19-2019 07-07-2024 Episodic Other non-traumatic joint disorders (1 source) Effusion, left shoulder; Translations: [Effusion, left shoulder] Onset: 08-26-2024 Episodic Other nutritional; endocrine; and metabolic disorders (20 sources) History of nutritional deficiency; Translations: [Personal history of other endocrine, nutritional and metabolic disease] Onset: 07-07-2024 04-21-2022 Episodic Other screening for suspected conditions (not mental disorders or infectious disease) (20 sources) Patient encounter status; Translations: [Encounter for screening mammogram for malignant neoplasm of breast] Onset: 11-22-2014 Episodic Other skin disorders (1 source) Localized swelling, mass and lump, left upper limb; Translations: [Localized swelling, mass and lump, left upper limb] Onset: 06-29-2024 Episodic Phlebitis; thrombophlebitis and thromboembolism (20 sources) H/O: Deep vein thrombosis; Translations: [Personal history of other venous thrombosis and embolism] Onset: 09-14-2015 09-14-2015 Episodic Comment on above: On chronic anticoagu lation with Eliquis Pulmonary heart disease (20 sources) Pulmonary embolism; Translations: [Other pulmonary embolism without acute cor pulmonale] Onset: 07-12-2013 04-08-2021 Episodic Residual codes; unclassified (20 sources) Delirium; Translations: [Disorientation, unspecified] Onset: 11-10-2022 09-21-2018 Episodic Residual codes; unclassified (20 sources) Unspecified problems with limbs and other problems; Translations: [Problem] Onset: 11-10-2022 11-10-2022 Episodic Residual codes; unclassified (20 sources) FH: Multiple sclerosis; Translations: [Family history of epilepsy and other diseases of the nervous system] Onset: 07-07-2024 07-07-2024 Episodic Screening and history of mental health and substance abuse codes (2 sources) Encounter for screening for depression; Translations: [Encounter for screening examination for other mental health and behavioral disorders] Onset: 03-07-2024 Episodic Syncope (20 sources) Near syncope; Translations: [Syncope and collapse] Onset: 06-19-2015 08-03-2020 Episodic Unclassified (14 sources) history double bypass cardiac surgery 11-11-2021 Unclassified (1 source) Patient encounter status 09-22-2024 Urinary tract infections (20 sources) Urinary tract infectious disease; Translations: [Urinary tract infection, site not specified] Onset: 11-10-2022 09-21-2018 Episodic Results Test Name Value Interpretation Reference Range Facility CBC W/Diff, Automatedon 10-1 Absolute Lymph 0.50 X10 3/uL Low 0.83-4.51 [facility] Comment on above: Performed By: #### L 100.0100, L500.4050 ####[facility] [address] [place], [address] Absolute Neut 5.0 X10 3/uL Normal 2.0-7.7 [facility] Comment on above: Performed By: #### L 100.0100, L500.4050 ####[facility] [address] [place], [address] Basophils/100 WBC (Bld) 0.5 % Normal 0-1 [facility] Comment on above: Performed By: #### L 100.0100, L500.4050 ####[facility] [address] [place], [address] Eosinophils/100 WBC (Bld) 3.3 % Normal 0-5 [facility] Comment on above: Performed By: #### L 100.0100, L500.4050 ####[facility] [address] [place], [address] Erythrocyte distribution width (RBC) [Ratio] 14.3 % Normal 11.6-14.6 [facility] Comment on above: Performed By: #### L 100.0100, L500.4050 ####[facility] [address] [place], [address] Hematocrit (Bld) [Volume fraction] 43.6 % Normal 37-47 [facility] Comment on above: Performed By: #### L 100.0100, L500.4050 ####[facility] [address] [place], [address] Hemoglobin (Bld) [Mass/Vol] 13.6 g/dL Normal 12.0-15.0 [facility] Comment on above: Performed By: #### L 100.0100, L500.4050 ####[facility] [address] [place], [address] IG% 0.500 Normal 0.0-0.9 [facility] Comment on above: Result Comment: IG% - Immature Granulocytes (promyelocytes, myelocytes and metamyelocytes) > 1% indicates that a LEFT SHIFT is Present. Performed By: #### L 100.0100, L500.4050 ####[facility] [address] [place], [address] Lymphocytes/100 WBC (Bld) 7.9 % Low 19-41 [facility] Comment on above: Performed By: #### L 100.0100, L500.4050 ####[facility] [address] [place], [address] MCH (RBC) [Entitic mass] 27.0 pg Normal 27.0-32.0 [facility] Comment on above: Performed By: #### L 100.0100, L500.4050 ####[facility] [address] [place], [address] MCHC (RBC) [Mass/Vol] 31.2 g/dL Low 32-36 [facility] Comment on above: Performed By: #### L 100.0100, L500.4050 ####[facility] [address] [place], [address] MCV (RBC) [Entitic vol] 86.5 fL Normal 81-99 [facility] Comment on above: Performed By: #### L 100.0100, L500.4050 ####[facility] [address] [place], [address] Monocytes/100 WBC (Bld) 9.5 % Normal 0-10 [facility] Comment on above: Performed By: #### L 100.0100, L500.4050 ####[facility] [address] [place], [address] Neutrophils/100 WBC (Bld) 78.3 % High 47-70 [facility] Comment on above: Performed By: #### L 100.0100, L500.4050 ####[facility] [address] [place], [address] Nucleated RBC (Bld) [#/Vol] 0 10*3/uL Normal 0-5 [facility] Comment on above: Performed By: #### L 100.0100, L500.4050 ####[facility] [address] [place], [address] Platelet mean volume (Bld) [Entitic vol] 10.8 fL Normal 6.2-12.0 [facility] Comment on above: Performed By: #### L 100.0100, L500.4050 ####[facility] [address] [place], [address] Platelets (Bld) [#/Vol] 266 10*3/uL Normal 150-450 [facility] Comment on above: Performed By: #### L 100.0100, L500.4050 ####[facility] [address] [place], [address] RBC (Bld) [#/Vol] 5.04 10*6/uL Normal 4.2-5.4 [facility] Comment on above: Performed By: #### L 100.0100, L500.4050 ####[facility] [address] [place], [address] RDW SD 45.3 fl High 35.1-43.9 [facility] Comment on above: Performed By: #### L 100.0100, L500.4050 ####[facility] [address] [place], [address] WBC (Bld) [#/Vol] 6.3 10*3/uL Normal 4.4-11.0 [facility] Comment on above: Performed By: #### L 100.0100, L500.4050 ####[facility] [address] [place], [address] [facility] Albumin [Mass/Vol] 4.2 g/dL Normal 3.4-4.8 [facility] Comment on above: Performed By: #### L 100.0100, L500.4050 ####[facility] [address] [place], [address] Albumin/Globulin [Mass ratio] 1.5 {ratio} Normal 0.9-2.4 [facility] Comment on above: Performed By: #### L 100.0100, L500.4050 ####[facility] [address] [place], [address] ALK PHOS 76 U/L Normal 35-104 [facility] Comment on above: Performed By: #### L 100.0100, L500.4050 ####[facility] [address] [place], [address] ALT [Catalytic activity/Vol] 34 U/L Normal <=34 [facility] Comment on above: Performed By: #### L 100.0100, L500.4050 ####[facility] [address] [place], [address] AST [Catalytic activity/Vol] 27 U/L Normal <=31 [facility] Comment on above: Performed By: #### L 100.0100, L500.4050 ####[facility] [address] [place], [address] Bilirubin [Mass/Vol] 0.30 mg/dL Normal 0.00-1.30 [facility] Comment on above: Performed By: #### L 100.0100, L500.4050 ####[facility] [address] [place], [address] BUN/CRE 36.9 RATIO High 10-20 [facility] Comment on above: Performed By: #### L 100.0100, L500.4050 ####[facility] [address] [place], [address] Calcium [Mass/Vol] 12.5 mg/dL High 7.6-11.0 [facility] Comment on above: Performed By: #### L 100.0100, L500.4050 ####[facility] [address] [place], [address] Chloride [Moles/Vol] 107 mmol/L Normal 98-108 [facility] Comment on above: Performed By: #### L 100.0100, L500.4050 ####[facility] [address] [place], [address] CO2 [Moles/Vol] 20.3 mmol/L Low 21.0-32.0 [facility] Comment on above: Performed By: #### L 100.0100, L500.4050 ####[facility] [address] [place], [address] Creatinine [Mass/Vol] 0.73 mg/dL Normal 0.70-1.20 [facility] Comment on above: Performed By: #### L 100.0100, L500.4050 ####[facility] [address] [place], [address] GAP 14 Normal 5-15 [facility] Comment on above: Performed By: #### L 100.0100, L500.4050 ####[facility] [address] [place], [address] GFR/1.73 sq M.predicted among non-blacks MDRD (S/P/Bld) [Vol rate/Area] 85 mL/min/{1.73_m2} Normal >60 [facility] Comment on above: Result Comment: mL/m in/1.73m2 CKD-EPI Creatinine Equation (2020) Performed By: #### L 100.0100, L500.4050 ####[facility] [address] [place], [address] Globulin (S) [Mass/Vol] 2.8 g/dL Normal 2.2-4.2 [facility] Comment on above: Performed By: #### L 100.0100, L500.4050 ####[facility] [address] [place], [address] Glucose [Mass/Vol] 154 mg/dL High 70-99 [facility] Comment on above: Performed By: #### L 100.0100, L500.4050 ####[facility] [address] [place], [address] Potassium [Moles/Vol] 4.3 mmol/L Normal 3.3-5.1 [facility] Comment on above: Performed By: #### L 100.0100, L500.4050 ####[facility] [address] [place], [address] Sodium [Moles/Vol] 141 mmol/L Normal 133-145 [facility] Comment on above: Performed By: #### L 100.0100, L500.4050 ####[facility] [address] [place], [address] T PROT 7.0 g/dL Normal 5.9-8.4 [facility] Comment on above: Performed By: #### L 100.0100, L500.4050 ####[facility] [address] [place], [address] Urea nitrogen [Mass/Vol] 27 mg/dL High 4-19 [facility] Comment on above: Performed By: #### L 100.0100, L500.4050 ####[facility] [address] [place], [address] Echo Completeon 01-11-2025 Echo Complete [facility] [address] [place] [address] Echo Complete 01/11/25 0951 MR#: [id number] Acct: [id number] Name: JENNI ALBRIGHT Rep #: [id number] : 1950 74 From: Robert Bobo MD Attending Dr: JERRI DRAPER Status: REG CLI Ordering Dr: JERRI DRAPER Date: 01/11/25 Location: [facility] Sex: F C Admitted: Reason For Study Reason For Study: Complete Heart Block Procedure This was a 2D Doppler, Color Flow transthoracic echocardiogram. Very Technically difficult study. Unable to obtain an IV to utilize Definity. Three attempts were made. Exam performed in department. Left Ventricle Normal LV size. Mild concentric left ventricular hypertrophy. The left ventricular ejection fraction is 60 %. Stage 1 diastolic dysfunction. No regional wall motion abnormalities noted. Right Ventricle Normal RV size. ICD or pacer leads identified within the right ventricle. Normal systolic function. Atria Normal left atrium. Normal right atrium. Mitral Valve Normal mitral valve. Tricuspid Valve Normal tricuspid valve. Aortic Valve Trisinus/trileaflet aortic valve. Pulmonic Valve The pulmonic valve is not well visualized. Great Vessels Normal aortic root. The pulmonary artery is normal size. Inferior vena cava collapse with respiration. Pericardium/Pleural No pericardial effusion. MMode/2D Measurements Calculations LVIDd: 4.7 cm IVSd: 1.2 cm LAV(MOD-bp): 45.0 ml LVIDs: 3.6 cm LVPWd: 1.3 cm LAV(MOD-bp) Indexed: 22.2 ml/m2 RVDd: 3.0 cm FS: 24.7 % LAV(MOD-sp2): 46.7 ml LAV(MOD-sp4): 36.8 ml _ LA dimension(2D): 4.4 cm LA A4 area: 15.7 cm2 RA A4 area: 11.9 cm2 Time Measurements MV dec time: 0.31 sec Doppler Measurements Calculations MV E max aneesh: 65.5 cm/sec Lat Peak E' Aneesh: 9.7 cm/sec Med Peak E' Aneesh: 6.3 cm/sec MV A max aneesh: 89.3 cm/sec E/E' lat: 6.7 E/E' med: 10.5 MV E/A: 0.73 _ MV V2 max: 114.5 cm/sec MV P1/2t max aneesh: 67.9 cm/sec Ao V2 max: 150.5 cm/sec MV max P.2 mmHg MV P1/2t: 96.7 msec Ao max P.1 mmHg MV V2 mean: 52.6 cm/sec MV dec slope: 205.8 cm/sec2 MV mean P.4 mmHg MV V2 VTI: 24.9 cm MVA(P1/2t): 2.3 cm2 _ LV V1 max: 123.5 cm/sec PA V2 max: 100.9 cm/sec TR max aneesh: 179.7 cm/sec LV V1 max P.1 mmHg TR max P.9 mmHg ECHO/Echo Complete Interpretation Summary Normal LV size. The left ventricular ejection fraction is 60 %. Stage 1 diastolic dysfunction. Mild concentric left ventricular hypertrophy. Ordering Physician: JERRI DRAPER Referring Physician: JERRI DRAPER Performed By: Tomas Arshad RCS 01/11/251933 Date Robert Bobo MD CC: Dr. Edmundo Cruz MD; JERRI DRAPER Date Dictated: 01/11/25950 Date Transcribed: 01/11/251933 [place]: [facility] Office Visit (ENWSTR ) -------- JENNI ALBRIGHT ([id number]) 1950 F Date Time Provider Department 11/03/24 9:00 AM NARCISA LOMELI ENWSTR During your visit today, we recorded the following information about you: Pulse Respiration Blood pressure Weight 87/minute 21/minute 152/96 108.4 kg Height 1.575 m Narcisa Lomeli MD 11/03/2024 10:30 PM Signed [facility] [place] Follow up note NAME: Jenni Albright is a 73 year old old female PCP: Edmundo Cruz MD Requesting Provider: Deion Russell APRN. CNP Chief Complaint: Hypercalcemia, elevated PTH History of Present Illness: Jenni Albright is a 73 year old old female presenting with hypercalcemia. She is accompanied by her Initial visit 03/28/2024 Last visit 09/29/24 From prior documentation, with updates today She has had high calcium for over 3 years, but reports she was not aware of this Has a hx of MS Personal history of kidney stones: no Personal history of fractures: None Family history of osteoporosis: no Height loss: unknown Weight <127 lbs: No Prior radiation to the neck: no Personal history of thyroid disease: no Family history of calcium issues, thyroid or parathyroid disease: no Calcium Intake: Patient eats ~1 serving of calcium/day- 1 yogurt cup every morning, started drinking milk 1 glass a day, some times drinks orange juice when it is on sale Patient takes multivitamins, but no separate calcium supplements or tums Vitamin D Intake: I stared her on 50,000 units of Vitamin d which she has not completed course for yet No recent or prolonged steroid use Smoking: Ex-smoker- remote hx Alcohol: occasionally Exercise: no regular exercise program History of falls: reports her legs give out sometimes due to MS, and has falls occasionally Menopause at age: 40s, she had partial hysterectomy due to large tumor on the uterus, surgical pathology was benign HRT: No No hx of cancer or radiation therapy Denied any steroid use, use of lithium or HCTZ in the past Has constipation for several years, and this is baseline for her Denied any symptoms at this time include anorexia, N/V, polyuria, polydipsia, blood in urine, bone pains No changes since last seen She is presenting today with DXA scan results 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 11/19/2015 BBB (bundle branch block) CAD (coronary artery disease) 07/2013 non-STMI/CABG CHB (complete heart block) (HCC) Congestive heart failure (HCC) GERD (gastroesophageal reflux disease) hiatal hernia History of DVT (deep vein thrombosis) 09/14/2015 History of rectal polypectomy 07/2011 Hyperlipidemia Hypertension Iron deficiency anemia Multiple sclerosis (HCC) Neuropathic pain Legs>arms from MS REBECCA (obstructive sleep apnea) on CPAP Pacemaker Pulmonary embolism (HCC) 07/2013 during hospitalization for [place] Vitamin D deficiency PAST SURGICAL HISTORY Procedure Laterality Date APPENDECTOMY BIVENTICULAR PACEMAKER INSERTION 09/05/2014 [employer] CABG (2) VEIN GRAFTS AND ARTERIAL GRAFT(S 07/22/2013 THURMAN to LAD and Dx CARPAL TUNNEL COLONOSCOPY 08/01/2011 5mm rectal polyp COLONOSCOPY 12/05/2015 rectal polyp (adenoma) and diverticulosis CYSTOSCOPY 09/21/2018 EGD 07/17/2011 sliding hiatal hernia EGD 11/19/2015 Dr. Lema- HEART CATHETERIZATION 01/29/2016 HEART CATHETERIZATION 07/21/2013 The patient was advised a cardiothoracic consultation for coronary artery bypass surgery. Mid and distal LAD has severe disease. This is not suitable for percutaneous intervention and it is a bifurcation lesion. 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 Thiago Verdugo REMV CATARACT EXTRACAP,INSERT LENS Left 04/16/2017 Dr. Dsa ROTATOR CUFF REPAIR Right TOTAL ABDOM HYSTERECTOMY 1983 VENA CAVA FILTER INSERTION 08/16/2013 FAMILY HISTORY Problem Relation Age of Onset Diabetes Mother Coronary Artery Disease Mother NE's Cancer Father Heart Sister NE's, valve replaced Stroke Sister Ovarian cancer Sister Multiple Sclerosis Sister Hypertension Sister Coronary Artery Disease Brother 2 brothers CABG Aneurysm Brother Calcium Disorder No Family History Parathyroid Disease No Family History Osteoporosis No Family History ALLERGIES Allergen Reactions Glatiramer Rash, Itching Social History Tobacco Use Smoking status: Former Current packs/day: 1.00 Average packs/day: 1 pack/day for 20.0 years (20.0 ttl pk-yrs) Types: Cigarettes Passive exposure: Past Smokeless tobacco: Never Tobacco comments: Quit around 1995 Vaping Use Vaping status: Never Used Substance Use Topics Alcohol use: Not Currently Comment: occ Drug use: Never Current Ou (more content not included)... Normal [facility] BD DXA - FOREARM SKELETONon 11-02-2024 BD DXA - FOREARM SKELETON * * *Final Report* * * DATE OF EXAM: Nov 02 2024 3:10PM BRITNEY 0870 - BD DXA - FOREARM SKELETON / PROCEDURE REASON: E21.0-Primary hyperparathyroidism (HCC) * * * * Physician Interpretation * * * * EXAMINATION: DXA BONE DENSITOMETRY BD DXA - FOREARM SKELETON, BD VFA WITH DXA - AXIAL SKELETON PATIENT DEMOGRAPHICS: Age: 73 years, Gender: Female SCANNER INFORMATION: DXA Model: [employer] [id number] Date Scanned: 11/02/2024 3:10 PM CLINICAL HISTORY: DIAGNOSTIC Primary hyperparathyroidism (HCC) . RISK FACTORS FOR OSTEOPOROSIS AND ASSOCIATED FRACTURES REPORTED BY THIS PATIENT: Please refer to Bone Health Questionnaire in the EMR CURRENT THERAPY: Please refer to Bone Health Questionnaire in the EMR TECHNICAL LIMITATIONS: Degenerative disease of the spine RESULTS: Lumbar Spine (L1, L2, L3, L4): Total BMD: 1.245 g/cm2, T-score: 0.5 , Z-score: 1.1 Right Femoral Neck: 0.680 g/cm2 , T-score -2.6, Z-score -1.4 Right Total Hip: 0.780 g/cm2 , T-score -1.8, Z-score -0.9 Left Femoral Neck: 0.717 g/cm2 , T-score -2.3, Z-score -1.1 Left Total Hip: 0.764 g/cm2 , T-score -1.9 , Z-score -1.0 Left Forearm, Distal 1/3 of Radius: 0.639 g/cm2 , T-score -2.8 , Z-score -0.5 No comparison data - the patient has not had a previous bone density in the [facility] or the previous bone density was performed on a different DXA machine (new, updated model or different location) within the [facility]. VERTEBRAL FRACTURE ASSESSMENT Not performed. TRABECULAR BONE ASSESSMENT TBS not performed: not ordered IMPRESSION: THE LOWEST T-SCORE IS -2.8 IN THE LEFT FOREARM 1) DIAGNOSIS (based on BMD alone): OSTEOPOROSIS Caution: Medical conditions other than osteoporosis may cause low bone density, such as osteomalacia or renal osteodystrophy. Clinical correlation is necessary. 2) FRACTURE RISK ( Based on FRAX) 10-year absolute fracture risk: - major osteoporotic fracture = 14.4 % - hip fracture = 4.3 % - A diagnosis of Osteoporosis, a 10 year probability of hip fracture greater than or equal to 3% or a 10 year probability of any major osteoporosis-related fracture greater than or equal to 20% should be considered for treatment. - DXA scanner generated FRAX calculations may slightly differ from online FRAX calculations due to differences in software versions. - All recommendations and calculations are to be considered as guidelines and should not replace sound clinical judgement - Caution: Fracture risk may be increased independent of BMD in patients with corticosteroid use, age greater than 65 years, or a history of prior fragility fracture. RECOMMENDATIONS: Follow-up in 2 years or as clinically indicated. Patients that are taking corticosteroids, are transplant recipients or have hyperparathyroidism should have annual follow-up. Follow-up scans should always be done on the same machine for accurate comparison. FOR MORE INFORMATION ABOUT DIAGNOSIS AND TREATMENT: [facility]oporosis and Metabolic Bone Disease:? [email or web address].org/arthritis/os darron National Osteoporosis Foundation:? www.nof.org International Society of Clinical Densitometry www.iscd.org Upper Trimmer: TYE Transcribe Date/Time: Nov 02 2024 3:21P Dictated by : LEFTY VARMA DO This examination was interpreted and the report reviewed and electronically signed by: LEFTY VARMA DO on Nov 02 2024 3:23PM EST [id number] -2.8 [facility] BD VFA WITH DXA - AXIAL SKEL [facility] 11-02-2024 BD VFA WITH DXA - AXIAL SKELETON * * *Final Report* * * DATE OF EXAM: Nov 02 2024 3:10PM BRITNEY 0802 - BD VFA WITH DXA - AXIAL SKELETON / PROCEDURE REASON: E21.0-Primary hyperparathyroidism (HCC) * * * * Physician Interpretation * * * * EXAMINATION: DXA BONE DENSITOMETRY BD DXA - FOREARM SKELETON, BD VFA WITH DXA - AXIAL SKELETON PATIENT DEMOGRAPHICS: Age: 73 years, Gender: Female SCANNER INFORMATION: DXA Model: [employer] [id number] Date Scanned: 11/02/2024 3:10 PM CLINICAL HISTORY: DIAGNOSTIC Primary hyperparathyroidism (HCC) . RISK FACTORS FOR OSTEOPOROSIS AND ASSOCIATED FRACTURES REPORTED BY THIS PATIENT: Please refer to Bone Health Questionnaire in the EMR CURRENT THERAPY: Please refer to Bone Health Questionnaire in the EMR TECHNICAL LIMITATIONS: Degenerative disease of the spine RESULTS: Lumbar Spine (L1, L2, L3, L4): Total BMD: 1.245 g/cm2, T-score: 0.5 , Z-score: 1.1 Right Femoral Neck: 0.680 g/cm2 , T-score -2.6, Z-score -1.4 Right Total Hip: 0.780 g/cm2 , T-score -1.8, Z-score -0.9 Left Femoral Neck: 0.717 g/cm2 , T-score -2.3, Z-score -1.1 Left Total Hip: 0.764 g/cm2 , T-score -1.9 , Z-score -1.0 Left Forearm, Distal 1/3 of Radius: 0.639 g/cm2 , T-score -2.8 , Z-score -0.5 No comparison data - the patient has not had a previous bone density in the [facility] or the previous bone density was performed on a different DXA machine (new, updated model or different location) within the [facility]. VERTEBRAL FRACTURE ASSESSMENT Not performed. TRABECULAR BONE ASSESSMENT TBS not performed: not ordered IMPRESSION: THE LOWEST T-SCORE IS -2.8 IN THE LEFT FOREARM 1) DIAGNOSIS (based on BMD alone): OSTEOPOROSIS Caution: Medical conditions other than osteoporosis may cause low bone density, such as osteomalacia or renal osteodystrophy. Clinical correlation is necessary. 2) FRACTURE RISK ( Based on FRAX) 10-year absolute fracture risk: - major osteoporotic fracture = 14.4 % - hip fracture = 4.3 % - A diagnosis of Osteoporosis, a 10 year probability of hip fracture greater than or equal to 3% or a 10 year probability of any major osteoporosis-related fracture greater than or equal to 20% should be considered for treatment. - DXA scanner generated FRAX calculations may slightly differ from online FRAX calculations due to differences in software versions. - All recommendations and calculations are to be considered as guidelines and should not replace sound clinical judgement - Caution: Fracture risk may be increased independent of BMD in patients with corticosteroid use, age greater than 65 years, or a history of prior fragility fracture. RECOMMENDATIONS: Follow-up in 2 years or as clinically indicated. Patients that are taking corticosteroids, are transplant recipients or have hyperparathyroidism should have annual follow-up. Follow-up scans should always be done on the same machine for accurate comparison. FOR MORE INFORMATION ABOUT DIAGNOSIS AND TREATMENT: [facility] Osteoporosis and Metabolic Bone Disease:? [email or web address].org/arthritis/os darron National Osteoporosis Foundation:? www.nof.org International Society of Clinical Densitometry www.iscd.org Upper Trimmer: TYE Transcribe Date/Time: Nov 02 2024 3:21P Dictated by : LEFTY VARMA, DO This examination was interpreted and the report reviewed and electronically signed by: LEFTY VARMA DO on Nov 02 2024 3:23PM EST [id number] -2.8 Normal [facility] DXA Radius and Ulna [Mass/Ar ea] Bone densityon 11-02-2024 * * *Final Report* * * DATE OF EXAM: Nov 02 2024 3:10PM BRITNEY 0870 - BD DXA - FOREARM SKELETON / PROCEDURE REASON: E21.0-Primary hyperparathyroidism (HCC) * * * * Physician Interpretation * * * * EXAMINATION: DXA BONE DENSITOMETRY BD DXA - FOREARM SKELETON, BD VFA WITH DXA - AXIAL SKELETON PATIENT DEMOGRAPHICS: Age: 73 years, Gender: Female SCANNER INFORMATION: DXA Model: [id number] Date Scanned: 11/02/2024 3:10 PM CLINICAL HISTORY: DIAGNOSTIC Primary hyperparathyroidism (HCC) . RISK FACTORS FOR OSTEOPOROSIS AND ASSOCIATED FRACTURES REPORTED BY THIS PATIENT: Please refer to Bone Health Questionnaire in the EMR CURRENT THERAPY: Please refer to Bone Health Questionnaire in the EMR TECHNICAL LIMITATIONS: Degenerative disease of the spine RESULTS: Lumbar Spine (L1, L2, L3, L4): Total BMD: 1.245 g/cm2, T-score: 0.5 , Z-score: 1.1 Right Femoral Neck: 0.680 g/cm2 , T-score -2.6, Z-score -1.4 Right Total Hip: 0.780 g/cm2 , T-score -1.8, Z-score -0.9 Left Femoral Neck: 0.717 g/cm2 , T-score -2.3, Z-score -1.1 Left Total Hip: 0.764 g/cm2 , T-score -1.9 , Z-score -1.0 Left Forearm, Distal 1/3 of Radius: 0.639 g/cm2 , T-score -2.8 , Z-score -0.5 No comparison data - the patient has not had a previous bone density in the [facility] or the previous bone density was performed on a different DXA machine (new, updated model or different location) within the [facility]. VERTEBRAL FRACTURE ASSESSMENT Not performed. TRABECULAR BONE ASSESSMENT TBS not performed: not ordered [facility] Provider, Britta James - 11/02/2024 * * *Final Report* * * DATE OF EXAM: Nov 02 2024 3:10PM BRITNEY Moody70 - BD DXA - FOREARM SKELETON / PROCEDURE REASON: E21.0-Primary hyperparathyroidism (HCC) * * * * Physician Interpretation * * * * EXAMINATION: DXA BONE DENSITOMETRY BD DXA - FOREARM SKELETON, BD VFA WITH DXA - AXIAL SKELETON PATIENT DEMOGRAPHICS: Age: 73 years, Gender: Female SCANNER INFORMATION: DXA Model: [id number] Date Scanned: 11/02/2024 3:10 PM CLINICAL HISTORY: DIAGNOSTIC Primary hyperparathyroidism (HCC) . RISK FACTORS FOR OSTEOPOROSIS AND ASSOCIATED FRACTURES REPORTED BY THIS PATIENT: Please refer to Bone Health Questionnaire in the EMR CURRENT THERAPY: Please refer to Bone Health Questionnaire in the EMR TECHNICAL LIMITATIONS: Degenerative disease of the spine RESULTS: Lumbar Spine (L1, L2, L3, L4): Total BMD: 1.245 g/cm2, T-score: 0.5 , Z-score: 1.1 Right Femoral Neck: 0.680 g/cm2 , T-score -2.6, Z-score -1.4 Right Total Hip: 0.780 g/cm2 , T-score -1.8, Z-score -0.9 Left Femoral Neck: 0.717 g/cm2 , T-score -2.3, Z-score -1.1 Left Total Hip: 0.764 g/cm2 , T-score -1.9 , Z-score -1.0 Left Forearm, Distal 1/3 of Radius: 0.639 g/cm2 , T-score -2.8 , Z-score -0.5 No comparison data - the patient has not had a previous bone density in the [facility] or the previous bone density was performed on a different DXA machine (new, updated model or different location) within the [facility]. VERTEBRAL FRACTURE ASSESSMENT Not performed. TRABECULAR BONE ASSESSMENT TBS not performed: not ordered IMPRESSION IMPRESSION: THE LOWEST T-SCORE IS -2.8 IN THE LEFT FOREARM 1) DIAGNOSIS (based on BMD alone): OSTEOPOROSIS Caution: Medical conditions other than osteoporosis may cause low bone density, such as osteomalacia or renal osteodystrophy. Clinical correlation is necessary. 2) FRACTURE RISK ( Based on FRAX) 10-year absolute fracture risk: - major osteoporotic fracture = 14.4 % - hip fracture = 4.3 % - A diagnosis of Osteoporosis, a 10 year probability of hip fracture greater than or equal to 3% or a 10 year probability of any major osteoporosis-related fracture greater than or equal to 20% should be considered for treatment. - DXA scanner generated FRAX calculations may slightly differ from online FRAX calculations due to differences in software versions. - All recommendations and calculations are to be considered as guidelines and should not replace sound clinical judgement - Caution: Fracture risk may be increased independent of BMD in patients with corticosteroid use, age greater than 65 years, or a history of prior fragility fracture. RECOMMENDATIONS: Follow-up in 2 years or as clinically indicated. Patients that are taking corticosteroids, are transplant recipients or have hyperparathyroidism should have annual follow-up. Follow-up scans should always be done on the same machine for accurate comparison. FOR MORE INFORMATION ABOUT DIAGNOSIS AND TREATMENT: [facility] Osteoporosis and Metabolic Bone Disease:? www.ccf.org/arthritis/os darron National Osteoporosis Foundation:? www.nof.org International Society of Clinical Densitometry www.iscd.org Upper Trimmer: TYE Transcribe Date/Time: Nov 02 2024 3:21P Dictated by : LEFTY VARMA DO This examination was interpreted and the report reviewed and electronically signed by: LEFTY VARMA DO on Nov 02 2024 3:23PM [facility] DXA Skeletal system.axial Vi ews for bone density and vertebral fractureon 11-02-2024 * * *Final Report* * * DATE OF EXAM: Nov 02 2024 3:10PM BRITNEY 0802 - BD VFA WITH DXA - AXIAL SKELETON / PROCEDURE REASON: E21.0-Primary hyperparathyroidism (HCC) * * * * Physician Interpretation * * * * EXAMINATION: DXA BONE DENSITOMETRY BD DXA - FOREARM SKELETON, BD VFA WITH DXA - AXIAL SKELETON PATIENT DEMOGRAPHICS: Age: 73 years, Gender: Female SCANNER INFORMATION: DXA Model: [id number] Date Scanned: 11/02/2024 3:10 PM CLINICAL HISTORY: DIAGNOSTIC Primary hyperparathyroidism (HCC) . RISK FACTORS FOR OSTEOPOROSIS AND ASSOCIATED FRACTURES REPORTED BY THIS PATIENT: Please refer to Bone Health Questionnaire in the EMR CURRENT THERAPY: Please refer to Bone Health Questionnaire in the EMR TECHNICAL LIMITATIONS: Degenerative disease of the spine RESULTS: Lumbar Spine (L1, L2, L3, L4): Total BMD: 1.245 g/cm2, T-score: 0.5 , Z-score: 1.1 Right Femoral Neck: 0.680 g/cm2 , T-score -2.6, Z-score -1.4 Right Total Hip: 0.780 g/cm2 , T-score -1.8, Z-score -0.9 Left Femoral Neck: 0.717 g/cm2 , T-score -2.3, Z-score -1.1 Left Total Hip: 0.764 g/cm2 , T-score -1.9 , Z-score -1.0 Left Forearm, Distal 1/3 of Radius: 0.639 g/cm2 , T-score -2.8 , Z-score -0.5 No comparison data - the patient has not had a previous bone density in the [facility] or the previous bone density was performed on a different DXA machine (new, updated model or different location) within the [facility]. VERTEBRAL FRACTURE ASSESSMENT Not performed. TRABECULAR BONE ASSESSMENT TBS not performed: not ordered [facility] Provider, [facility] - 11/02/2024 * * *Final Report* * * DATE OF EXAM: Nov 02 2024 3:10PM BRITNEY 0802 - BD VFA WITH DXA - AXIAL SKELETON / PROCEDURE REASON: E21.0-Primary hyperparathyroidism (HCC) * * * * Physician Interpretation * * * * EXAMINATION: DXA BONE DENSITOMETRY BD DXA - FOREARM SKELETON, BD VFA WITH DXA - AXIAL SKELETON PATIENT DEMOGRAPHICS: Age: 73 years, Gender: Female SCANNER INFORMATION: DXA Model: [employer] [id number] Date Scanned: 11/02/2024 3:10 PM CLINICAL HISTORY: DIAGNOSTIC Primary hyperparathyroidism (HCC) . RISK FACTORS FOR OSTEOPOROSIS AND ASSOCIATED FRACTURES REPORTED BY THIS PATIENT: Please refer to Bone Health Questionnaire in the EMR CURRENT THERAPY: Please refer to Bone Health Questionnaire in the EMR TECHNICAL LIMITATIONS: Degenerative disease of the spine RESULTS: Lumbar Spine (L1, L2, L3, L4): Total BMD: 1.245 g/cm2, T-score: 0.5 , Z-score: 1.1 Right Femoral Neck: 0.680 g/cm2 , T-score -2.6, Z-score -1.4 Right Total Hip: 0.780 g/cm2 , T-score -1.8, Z-score -0.9 Left Femoral Neck: 0.717 g/cm2 , T-score -2.3, Z-score -1.1 Left Total Hip: 0.764 g/cm2 , T-score -1.9 , Z-score -1.0 Left Forearm, Distal 1/3 of Radius: 0.639 g/cm2 , T-score -2.8 , Z-score -0.5 No comparison data - the patient has not had a previous bone density in the [facility] or the previous bone density was performed on a different DXA machine (new, updated model or different location) within the [facility]. VERTEBRAL FRACTURE ASSESSMENT Not performed. TRABECULAR BONE ASSESSMENT TBS not performed: not ordered IMPRESSION IMPRESSION: THE LOWEST T-SCORE IS -2.8 IN THE LEFT FOREARM 1) DIAGNOSIS (based on BMD alone): OSTEOPOROSIS Caution: Medical conditions other than osteoporosis may cause low bone density, such as osteomalacia or renal osteodystrophy. Clinical correlation is necessary. 2) FRACTURE RISK ( Based on FRAX) 10-year absolute fracture risk: - major osteoporotic fracture = 14.4 % - hip fracture = 4.3 % - A diagnosis of Osteoporosis, a 10 year probability of hip fracture greater than or equal to 3% or a 10 year probability of any major osteoporosis-related fracture greater than or equal to 20% should be considered for treatment. - DXA scanner generated FRAX calculations may slightly differ from online FRAX calculations due to differences in software versions. - All recommendations and calculations are to be considered as guidelines and should not replace sound clinical judgement - Caution: Fracture risk may be increased independent of BMD in patients with corticosteroid use, age greater than 65 years, or a history of prior fragility fracture. RECOMMENDATIONS: Follow-up in 2 years or as clinically indicated. Patients that are taking corticosteroids, are transplant recipients or have hyperparathyroidism should have annual follow-up. Follow-up scans should always be done on the same machine for accurate comparison. FOR MORE INFORMATION ABOUT DIAGNOSIS AND TREATMENT: [facility] Osteoporosis and Metabolic Bone Disease:? www.ccf.org/arthritis/os darron National Osteoporosis Foundation:? www.nof.org International Society of Clinical Densitometry www.iscd.org Upper Trimmer: PSCB Transcribe Date/Time: Nov 02 2024 3:21P Dictated by : LEFTY VARMA DO This examination was interpreted and the report reviewed and electronically signed by: LEFTY VARMA DO on Nov 02 2024 3:23PM EST [facility] No Panel InformationOrdered By: [facility] Provider on 11-02-2024 LOWEST T-SCORE -2.8 [facility] No Panel Informationon 11-02 IMPRESSION: THE LOWEST T-SCORE IS -2.8 IN THE LEFT FOREARM 1) DIAGNOSIS (based on BMD alone): OSTEOPOROSIS Caution: Medical conditions other than osteoporosis may cause low bone density, such as osteomalacia or renal osteodystrophy. Clinical correlation is necessary. 2) FRACTURE RISK ( Based on FRAX) 10-year absolute fracture risk: - major osteoporotic fracture = 14.4 % - hip fracture = 4.3 % - A diagnosis of Osteoporosis, a 10 year probability of hip fracture greater than or equal to 3% or a 10 year probability of any major osteoporosis-related fracture greater than or equal to 20% should be considered for treatment. - DXA scanner generated FRAX calculations may slightly differ from online FRAX calculations due to differences in software versions. - All recommendations and calculations are to be considered as guidelines and should not replace sound clinical judgement - Caution: Fracture risk may be increased independent of BMD in patients with corticosteroid use, age greater than 65 years, or a history of prior fragility fracture. RECOMMENDATIONS: Follow-up in 2 years or as clinically indicated. Patients that are taking corticosteroids, are transplant recipients or have hyperparathyroidism should have annual follow-up. Follow-up scans should always be done on the same machine for accurate comparison. FOR MORE INFORMATION ABOUT DIAGNOSIS AND TREATMENT: [facility]osis and Metabolic Bone Disease:? www.ccf.org/arthritis/os darron National Osteoporosis Foundation:? www.nof.org International Society of Clinical Densitometry www.iscd.org Upper Trimmer: TYE Transcribe Date/Time: Nov 02 2024 3:21P Dictated by : LEFTY VARMA DO This examination was interpreted and the report reviewed and electronically signed by: LEFTY VARMA DO on Nov 02 2024 3:23PM [facility] Radiology Study observation (narrative) [facility] CNOVon 09-29-2024 CNOV Office Visit (ENWSTR ) -------- JENNI ALBRIGHT ([id number]) 1950 F Date Time Provider Department 09/29/24 9:40 AM NARCISA LOMELI ENWSELIF During your visit today, we recorded the following information about you: Temperature Pulse Respiration Blood pressure 97.9 degrees 80/minute 16/minute 136/80 Weight 103.9 kg Narcisa Lomeli MD 09/29/2024 6:09 PM Signed Endocrinology [facility] Met[facility] [place] Follow up note NAME: Jenni Albright is a 73 year old old female PCP: Edmundo Cruz MD Requesting Provider: Deion Russell APRN. 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 She is accompanied by her Initial/last visit 03/28/2024 From prior documentation, with updates today She has had high calcium for over 3 years, but reports she was not aware of this Has a hx of MS Personal history of kidney stones: no Personal history of fractures: None Family history of osteoporosis: no Height loss: unknown Weight <127 lbs: No Prior radiation to the neck: no Personal history of thyroid disease: no Family history of calcium issues, thyroid or parathyroid disease: no Calcium Intake: Patient eats ~1 serving of calcium/day- 1 yogurt cup every morning, started drinking milk 1 glass a day, some times drinks orange juice when it is on sale Patient takes multivitamins, but no separate calcium supplements or tums Vitamin D Intake: I stared her on 50,000 units of Vitamin d which she has not completed course for yet No recent or prolonged steroid use Smoking: Ex-smoker- remote hx Alcohol: occasionally Exercise: no regular exercise program History of falls: reports her legs give out sometimes due to MS, and has falls occasionally Menopause at age: 40s, she had partial hysterectomy due to large tumor on the uterus, surgical pathology was benign HRT: No No hx of cancer or radiation therapy Denied any steroid use, use of lithium or HCTZ in the past Has constipation for several years, and this is baseline for her Denied any symptoms at this time include anorexia, N/V, polyuria, polydipsia, blood in urine, bone pains She is presenting today after 24 hr urine labs for hypercalcemia 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 11/19/2015 BBB (bundle branch block) CAD (coronary artery disease) 07/2013 non-STMI/CABG CHB (complete heart block) (HCC) Congestive heart failure (HCC) GERD (gastroesophageal reflux disease) hiatal hernia History of DVT (deep vein thrombosis) 09/14/2015 History of rectal polypectomy 07/2011 Hyperlipidemia Hypertension Iron deficiency anemia Multiple sclerosis (HCC) Neuropathic pain Legs>arms from MS REBECCA (obstructive sleep apnea) on CPAP Pacemaker Pulmonary embolism (HCC) 07/2013 during hospitalization for [place] Vitamin D deficiency PAST SURGICAL HISTORY Procedure Laterality Date APPENDECTOMY BIVENTICULAR PACEMAKER INSERTION 09/05/2014 [employer] CABG (2) VEIN GRAFTS AND ARTERIAL GRAFT(S 07/22/2013 THURMAN to LAD and Dx CARPAL TUNNEL COLONOSCOPY 08/01/2011 5mm rectal polyp COLONOSCOPY 12/05/2015 rectal polyp (adenoma) and diverticulosis CYSTOSCOPY 09/21/2018 EGD 07/17/2011 sliding hiatal hernia EGD 11/19/2015 Dr. Lema- HEART CATHETERIZATION 01/29/2016 HEART CATHETERIZATION 07/21/2013 The patient was advised a cardiothoracic consultation for coronary artery bypass surgery. Mid and distal LAD has severe disease. This is not suitable for percutaneous intervention and it is a bifurcation lesion. 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 Thiago Verdugo REMV CATARACT EXTRACAP,INSERT LENS Left 04/16/2017 Dr. Das ROTATOR CUFF REPAIR Right TOTAL ABDOM HYSTERECTOMY 1982 VENA CAVA FILTER INSERTION 08/16/2013 FAMILY HISTORY Problem Relation Age of Onset Diabetes Mother Coronary Artery Disease Mother NE's Cancer Father Heart Sister NE's, valve replaced Stroke Sister Ovarian cancer Sister Multiple Sclerosis Sister Hypertension Sister Coronary Artery Disease Brother 2 brothers CABG Aneurysm Brother Calcium Disorder No Family History Parathyroid Disease No Family History Osteoporosis No Family History ALLERGIES Allergen Reactions Glatiramer Rash, Itching Social History Tobacco Use Smoking status: Former Current packs/day: 1.00 Average packs/day: 1 pack/day for 20.0 years (20.0 ttl pk-yrs) Types: Cigarettes Passive exposure: Past Smokeless tobacco: Never Tobacco comments: Quit around 1995 Vaping Use Vaping status: Never Used Substance Use Topics Alcohol use: Not Currently Comment: occ Drug use: Never Current Outpatient Medicati (more content not included)... Normal [facility] Comprehensive metabolic 2000 panelon 09-23-2024 Albumin [Mass/Vol] 4.4 g/dL Normal 3.9-4.9 [facility] Comment on above: Order Comment: Speci men Type: BLOOD SPECIMENOrdering Facility: [facility] Address: [address] [place] [address] Performed By: #### 2 4323-8 ####[facility] LABCLIA [id number] [place] [address] [place] ALP [Catalytic activity/Vol] 91 U/L Normal 34-123 [facility] Comment on above: Order Comment: Speci men Type: BLOOD SPECIMENOrdering Facility: [facility] Address: [address] [place] [address] Performed By: #### 2 4323-8 ####[facility] LABIA [id number] [place] [address] [place] ALT [Catalytic activity/Vol] 29 U/L Normal 7-38 [facility] Comment on above: Order Comment: Speci men Type: BLOOD SPECIMENOrdering Facility: [facility] Address: [address] [place] [address] Performed By: #### 2 4323-8 ####[facility] LABIA [id number] [place] [address] [place] Anion gap [Moles/Vol] 13 mmol/L Normal 8-15 [facility] Comment on above: Order Comment: Speci men Type: BLOOD SPECIMENOrdering Facility: [facility] Address: [address] [place] [address] Performed By: #### 2 4323-8 ####[facility] LABCLIA [id number] [place] [address] [place] AST [Catalytic activity/Vol] 23 U/L Normal 13-35 [facility] Comment on above: Order Comment: Speci men Type: BLOOD SPECIMENOrdering Facility: [facility] Address: [address] [place] [address] Performed By: #### 2 4323-8 ####[facility] LABCLIA [id number] [place] [address] [place] Bilirubin [Mass/Vol] 0.2 mg/dL Normal 0.2-1.3 [facility] Comment on above: Order Comment: Speci men Type: BLOOD SPECIMENOrdering Facility: [facility] Address: [address] [place] [address] Performed By: #### 2 4323-8 ####[facility] LABCLIA [id number] [place] [address] [place] Calcium [Mass/Vol] 11.9 mg/dL High 8.5-10.2 [facility] Comment on above: Order Comment: Speci men Type: BLOOD SPECIMENOrdering Facility: [facility] Address: [address] [place] [address] Performed By: #### 2 4323-8 ####[facility] LABCLIA [id number] [place] [address] [place] Chloride [Moles/Vol] 105 mmol/L Normal 98-107 [facility] Comment on above: Order Comment: Speci men Type: BLOOD SPECIMENOrdering Facility: [facility] Address: [address] [place] [address] Performed By: #### 2 4323-8 ####[facility] LABCLIA [id number] [place] [id number] [place] CO2 [Moles/Vol] 23 mmol/L Normal 22-30 [facility] Comment on above: Order Comment: Speci men Type: BLOOD SPECIMENOrdering Facility: [facility] Address: [address] [place] [address] Performed By: #### 2 4323-8 ####[facility] LABCLIA [id number] [address] [address] [place] Creatinine [Mass/Vol] 0.62 mg/dL Normal 0.58-0.96 [facility] Comment on above: Order Comment: Speci men Type: BLOOD SPECIMENOrdering Facility: [facility] Address: [address] [place] [address] Performed By: #### 2 4323-8 ####[facility] LABCLIA [id number] [facility] [place] [address] [place] Creatinine and Glomerular filtration rate.predicted panel (S/P/Bld) 93 mL/min/1.73m??? Normal >=60 [facility] Comment on above: Order Comment: Speci men Type: BLOOD SPECIMENOrdering Facility: [facility] Address: [address] [place] [address] Result Comment: Jaye mated Glomerular Filtration Rate (eGFR) is calculated using the 2020 CKD-EPI creatinine equation. This equation utilizes serum creatinine, sex, and age as parameters. The creatinine assay has traceable calibration to isotope dilution-mass spectrometry. Refer to KDIGO guidelines for clinical interpretation. In patients with unstable renal function, e.g. those with acute kidney injury, the eGFR may not accurately reflect actual GFR. Performed By: #### 2 4323-8 ####[facility] LABIA [id number] [place] [id number] [place] Glucose [Mass/Vol] 116 mg/dL High 74-99 [facility] Comment on above: Order Comment: Speci men Type: BLOOD SPECIMENOrdering Facility: [facility] Address: [address] [place] [address] Result Comment: The [place] Diabetes Association (ADA) provides guidance for cutoff values for fasting glucose and random glucose. The ADA defines fasting as no caloric intake for at least 8 hours. Fasting plasma glucose results between 100 to 125 mg/dL indicate increased risk for diabetes (prediabetes). Fasting plasma glucose results greater than or equal to 126 mg/dL meet the criteria for diagnosis of diabetes. In the absence of unequivocal hyperglycemia, results should be confirmed by repeat testing. In a patient with classic symptoms of hyperglycemia or hyperglycemic crisis, random plasma glucose results greater than or equal to 200 mg/dL meet the criteria for diagnosis of diabetes. Reference: Standards of Medical Care in Diabetes 2016, [place] [employer] Association. Diabetes Care. 2016.39(Suppl 1). Performed By: #### 2 4323-8 ####[facility] LABCLIA [id number] [place] [address] [place] Potassium [Moles/Vol] 4.6 mmol/L Normal 3.7-5.1 [facility] Comment on above: Order Comment: Speci men Type: BLOOD SPECIMENOrdering Facility: [facility] Address: [address] [place] [address] Performed By: #### 2 4323-8 ####[facility] LABCLIA [id number] [place] [id number] [place] Protein [Mass/Vol] 7.2 g/dL Normal 6.3-8.0 [facility] Comment on above: Order Comment: Speci men Type: BLOOD SPECIMENOrdering Facility: [facility] Address: [address] [place] [address] Performed By: #### 2 4323-8 ####[facility] LABCLIA [id number] [facility] [place] [id number] [place] Sodium [Moles/Vol] 141 mmol/L Normal 136-144 [facility] Comment on above: Order Comment: Speci men Type: BLOOD SPECIMENOrdering Facility: [facility] Address: [address] [place] [address] Performed By: #### 2 4323-8 ####[facility] LABCLIA [id number] [place] [id number] [place] Urea nitrogen [Mass/Vol] 20 mg/dL Normal 7-21 [facility] Comment on above: Order Comment: Speci men Type: BLOOD SPECIMENOrdering Facility: [facility] Address: [address] [place] [address] Performed By: #### 2 4323-8 ####[facility] LABCLIA [id number] [place] [id number] [place] CNOVon 09-22-2024 CNOV Office Visit (CEMMOB ) -------- JENNI ALBRIGHT ([id number]) 1950 F Date Time Provider Department 09/22/24 9:00 AM [facility] CEMMOB During your visit today, we recorded the following information about you: Referring Provider: KIMI AYALA [[id number]] Allergies As of Date: 09/22/2024 Noted Allergy Reaction GLATIRAMER 07/20/2018 2 - Rash 9 - Itching Date Reviewed: 09/22/2024 Reviewed by: Carmen Patel MA - Fully Assessed Reason for Visit: Permanent Pacemaker [1364] Visit Diagnosis:Pacemaker reprogramming/check [Z45.018] Order(s):CARDIAC IMPLANTABLE DEVICE CHECK [1995460] Order #: [id number] FUTURE CARDIAC IMPLANTABLE DEVICE CHECK [0601559] Order #: [id number] Prescriptions as of 09/22/2024 - DULERA 200-5 mcg/actuation inhaler Inhale 1 puff as instructed two times a day. - SYMBICORT 160-4.5 mcg/actuation inhaler Inhale 2 puffs as instructed two times a day as needed. - ergocalciferol 50,000 unit capsule (VITAMIN D2, DRISDOL) TAKE 1 CAPSULE BY MOUTH ONE TIME A WEEK. - esomeprazole (NEXIUM) 40 mg capsule Take 1 capsule by mouth daily before breakfast. 1/2 hr before meal. - spironolactone (ALDACTONE) 25 mg tablet Take 1 tablet by mouth once daily. - fenofibrate nanocrystallized (TRICOR) 145 mg tablet Take 1 tablet by mouth once daily. - losartan (COZAAR) 50 mg tablet Take 1 tablet by mouth once daily. - carvedilol (COREG) 25 mg tablet Take 0.5 tablets by mouth two times a day. - apixaban (ELIQUIS) 5 mg tab(s) Take 1 tablet by mouth two times a day. - pravastatin (PRAVACHOL) 40 mg tablet Take 1 tablet by mouth daily at bedtime. - magnesium oxide (MAGOX) 400 mg (241.3 mg magnesium) tablet Take 1 tablet by mouth two times a day. - DULoxetine (CYMBALTA) 60 mg capsule Take 60 mg by mouth two times a day. - VUMERITY 231 mg capsule, delayed release Take 462 mg by mouth two times a day. Dr. Clemente - dimethyl fumarate (TECFIDERA) [address] Take 1 capsule by mouth twice daily. - gabapentin (NEURONTIN) 800 mg tablet Take 800 mg by mouth three times a day. - ALBUTEROL SULFATE HFA INHALATION Inhale 2 Puffs as instructed every 4 hours as needed. - baclofen (LIORESAL) 20 mg tablet Take by mouth three times daily as needed. 1 in am, 1in afternoon and 2 at bedtime - COMPOUNDED PRESCRIPTION One pair of shoes to fit over leg brace. Dx: G35; M79.2 - nitroglycerin sublingual (NITROQUICK) 0.4 mg SL tablet Dissolve 1 tablet under the tongue every 5 minutes as needed for Chest Pain. - multivitamin (MULTIPLE VITAMINS) tablet Take 1 tablet by mouth once daily. - aspirin, enteric coated (ASPIRIN, ENTERIC COATED) 81 mg EC tablet Take 81 mg by mouth once daily. - ferrous sulfate 325 mg (65 mg iron) tablet Take 325 mg by mouth daily with breakfast. Problem List As Of Date 09/22/2024 Noted Resolved Multiple sclerosis [G35] Neuropathic pain [M79.2] Hyperlipidemia [E78.5] GERD (gastroesophageal reflux disease) [K21.9] Vitamin D deficiency [E55.9] Back pain [M54.9] REBECCA (obstructive sleep apnea) [G47.33] Iron deficiency anemia [D50.9] History of rectal polypectomy [Z98.890, Z87.19] 07/13/2011 CAD (coronary artery disease) [I25.10] 07/12/2013 Pulmonary embolism (HCC) [I26.99] 07/12/2013 Essential hypertension [I10] 12/21/2014 Cardiac pacemaker [Z95.0] 09/14/2015 History of DVT (deep vein thrombosis) [Z86.718] 09/14/2015 Positive occult stool blood test [R19.5] 05/04/2018 Spastic hemiplegia, unspecified etiology, unspe*08/19/2022 Morbid obesity (HCC) [E66.01] 08/19/2022 Congestive heart failure, unspecified HF chroni*08/19/2022 PAF (paroxysmal atrial fibrillation) (HCC) [I48*08/19/2022 Abnormal result of other cardiovascular functio*11/22/2014 Diagnosed: 11/10/2022 Biventricular implantable cardioverter-defibril* Diagnosed: 11/10/2022 Calf pain [M79.669] 2021 Diagnosed: 11/10/2022 Cervico-occipital neuralgia [M54.81] 06/17/2016 Diagnosed: 11/10/2022 correction current use of anticoagulant therapy *11/10/2022 Diagnosed: 11/10/2022 Delirium [R41.0] 11/10/2022 Diagnosed: 11/10/2022 Dysphagia [R13.10] 01/09/2022 Diagnosed: 11/10/2022 Dyspnea on exertion [R06.09] 12/19/2021 Diagnosed: 11/10/2022 Fatigue [R53.83] 11/10/2022 Diagnosed: 11/10/2022 Hereditary peripheral neuropathy [G60.9] 09/23/2015 Diagnosed: 11/10/2022 Idiopathic peripheral neuropathy [G60.9] 07/18/2014 Diagnosed: 11/10/2022 Irritable bowel syndrome [K58.9] 11/10/2022 Diagnosed: 11/10/2022 Neuralgia [M79.2] 12/06/2013 Diagnosed: 11/10/2022 Neurogenic bladder [N31.9] 11/10/2022 Diagnosed: 11/10/2022 Pain in both lower legs [M79.661, M79.662] 11/10/2022 Diagnosed: 11/10/2022 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]2021 Diagnosed: 11/10/2022 Personal history of pulmonary embolism [Z86.711]09/14/2013 Diagnosed: 11/10/2022 Problem [IMO0 (more content not included)... [facility] CNOV Office Visit (CARMOB ) -------- JENNI ALBRIGHT ([id number]) 1950 F Date Time Provider Department 09/22/24 9:00 AM LANDON JONES During your visit today, we recorded the following information about you: Pulse Blood pressure Weight Height 79/minute 137/64 104.1 kg 1.575 m Landon Jones APRN.CHILDB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 09/22/2024 3:17 PM Signed [facility] [place] Samara Palma Department of Cardiovascular Medicine [facility] General Cardiology OUTPATIENT VISIT 09/22/2024 ESTABLISHED PATIENT PRIMARY CARE PHYSICIAN: Edmundo Cruz [address] [place] [address] CHIEF COMPLAINT: 6 month follow up none HISTORY OF PRESENT ILLNESS: Jenni Albright is a 73 year old female patient of Dr De La Rosa and Dr. Draper (last seen by Dr Draper on 05/05/2024) with PMHx : coronary artery disease, status post CABG 07/22/13, hypertension, hypercholesterolemia, paroxysmal atrial fibrillation, nonsustained ventricular tachycardia, Biventricualr dual chamber pacemaker implant for CHB on 09/05/14, history of multiple sclerosis , GI bleed on Xarelto on August 2015, History of bladder stimulator implant. They are here today for 6 month follow up. At last visit with Dr. Draper on 05/05/24: Been well. No shortness of breath or chest pain. No dizziness and no syncope. No issues with the pacemaker. No orthopnea, no PND Uses CPAP for REBECCA. No bleeding issues currently. Uses LWF, no falls. Patient reports feeling good from a cardiac standpoint. Patient denies chest pain, palpitations, orthopnea, syncope, near-syncope, or edema. Patient does note shortness of breath, but nothing that is new or different. She notes she just saw her tick inspector recently and are working with a medication regimen. She notes the inhaler she was just placed on is helping slightly. Patient's pacemaker has a year battery life left and will be having a replacement in fall. Cardiac medications reconciled today with patient and are as per medication list. Echo 08/06/2018: Please see scanned documents Is scheduled for a repeat echocardiogram 01/2025 Stress test 10/06/2016: Scanned documents Heart cath 02/11/2016: Scanned documents 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 11/19/2015 BBB (bundle branch block) CAD (coronary artery disease) 07/2013 non-STMI/CABG CHB (complete heart block) (HCC) Congestive heart failure (HCC) GERD (gastroesophageal reflux disease) hiatal hernia History of DVT (deep vein thrombosis) 09/14/2015 History of rectal polypectomy 07/2011 Hyperlipidemia Hypertension Iron deficiency anemia Multiple sclerosis (HCC) Neuropathic pain Legs>arms from MS REBECCA (obstructive sleep apnea) on CPAP Pacemaker Pulmonary embolism (HCC) 07/2013 during hospitalization for NE Vitamin D deficiency PAST SURGICAL HISTORY: PAST SURGICAL HISTORY Procedure Laterality Date APPENDECTOMY BIVENTICULAR PACEMAKER INSERTION 09/05/2014 [employer] CABG (2) VEIN GRAFTS AND ARTERIAL GRAFT(S 07/22/2013 THURMAN to LAD and Dx CARPAL TUNNEL COLONOSCOPY 08/01/2011 5mm rectal polyp COLONOSCOPY 12/05/2015 rectal polyp (adenoma) and diverticulosis CYSTOSCOPY 09/21/2018 EGD 07/17/2011 sliding hiatal hernia EGD 11/19/2015 Dr. Lema- HEART CATHETERIZATION 01/29/2016 HEART CATHETERIZATION 07/21/2013 The patient was advised a cardiothoracic consultation for coronary artery bypass surgery. Mid and distal LAD has severe disease. This is not suitable for percutaneous intervention and it is a bifurcation lesion. 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 Thiago Verdugo REMV CATARACT EXTRACAP,INSERT LENS Left 04/16/2017 Dr. Das ROTATOR CUFF REPAIR Right TOTAL ABDOM HYSTERECTOMY 1983 VENA CAVA FILTER INSERTION 08/16/2013 FAMILY HISTORY: FAMILY HISTORY Problem Relation Age of Onset Diabetes Mother Coronary Artery Disease Mother NE's Cancer Father Heart Sister NE's, valve replaced Stroke Sister Ovarian cancer Sister Multiple Sclerosis Sister Hypertension Sister Coronary Artery Disease Brother 2 brothers CABG Aneurysm Brother Calcium Disorder No Family History Parathyroid Disease No Family History Osteoporosis No Family History SOCIAL HISTORY: Social History Tobacco Use Smoking status: Former Current packs/day: 1.00 Average packs/day: 1 pack/day for 20.0 years (20.0 ttl pk-yrs) Types: Cigarettes Passive exposure: Past Smokeless tobacco: Never Tobacco comments: Quit around 1995 Vaping Use Vaping status: Never Used Substance Use Topics Alcohol use: Not Currently Comment: occ Drug use: Never ALLERGIES: Glatiramer CURRENT MEDICATIONS: Current Outpati (more content not included)... Normal [facility] Pulmonary Visit Reporton Pulmonary Visit Report [facility] Pulmonary Medicine of [address] [place] [address] OFFICE VISIT Date of Service: 09/09/24 MR#: [id number] Acct: [id number] Name: JENNI ALBRIGHT Rep #: [id number] : 1950 Provider: MARK Dobbins Age/Sex: 73/F [facility] Status: Signed Assessment and Plan Assessment and Plan (1) Asthma: Status: Chronic Qualifiers: Asthma severity: moderate Asthma persistence: persistent Asthma complication type: uncomplicated Qualified Code(s): J45.40 - Moderate persistent asthma, uncomplicated Plan: Deteriorated. NIOX procedure performed in the office today returned with elevated results. This confirms that the patient should be on some form of corticosteroid. She admits that she had stopped taking her daily maintenance inhaler. I believe that just going back on either Dulera or Symbicort as prescribed would be enough to control symptoms. However, the patient has been encouraged to contact our office in a few days if symptoms do not resolve. If she continues to be symptomatic after several days on daily maintenance inhaler I would plan to treat her with a prednisone burst and potentially a short course of antibiotics. Otherwise, return to the office in 6 months. No additional testing at this time. (2) REBECCA (obstructive sleep apnea): Status: Chronic Comment: Compliant with CPAP Plan: She is using and benefiting from Pap therapy. No indication for titration study at this time. Contact the office for any new or worsening symptoms in the meantime. Follow-up in 6 months.. (3) Morbid obesity: Status: Chronic Plan: Complicates exam, plan, care and prognosis. Continue to encourage weight loss. Orders: Orders NIOX Today J45.40 - Moderate persistent asthma, uncomplicated Plan Details Additional Comments: This note was generated with [employer]ou[employer] dictation software. It may contain incorrect words, spelling, and punctuation that were not noted in checking the note before signing. Follow Up: 6 Months HPI 1 Y FU Chief Complaint: cough HPI Comments Details: This patient presents to the office today for follow-up of her obstructive sleep apnea and asthma. She is ambulatory with the use of a wheeled walker. She is currently on room air and accompanied today by her . She has not recently been seen in the ED or urgent care for any respiratory illness. She has not required any antibiotics or prednisone for any breathing problems. She is a former smoker quitting completely back in 1995. She has not recently been compliant with the use of a daily maintenance inhaler. She states "I was doing so well" she did not feel the need for it. She was seen by her primary care doctor last week and ordered which she believes is Symbicort. She has not yet picked it up from the pharmacy. She admits that symptoms have been worse over the past couple days. She has not recently needed use of albuterol rescue inhaler, in fact she believes it is likely . She is reporting shortness of breath that is worse with exertion. She has a cough that is now productive of pale yellow-colored sputum. She does have occasional wheezing but denies any chest tightness, chest pain or palpitations. She has not had any fever, chills or body aches. She wakes up feeling rested and refreshed with use of her Pap device. She denies any difficulty with morning headaches. She does have dry mouth, and over the last 2 weeks has noticed an increase in mask leaks and she switched to a new mask. She has not required naps and is not nodding off to sleep unintentionally. Compliance report for the past 30 days shows 100% compliance with an average use of 10 hours and 10 minutes per night. Current setting is 13 cmH2O with a residual AHI of 2.0 events per hour. Leaks do not appear to be problematic. Intake Vital Signs 09/10/23 07:49 09/09/24 08:00 Height 5 ft 2 in 5 ft 2 in Weight: 229 lb BMI 41.8 BP 119/66 Blood Pressure Location Rt radial Position Sitting Respiration 22 H Pulse 89 Pulse Source NIBP Temp 96.4 F L Temperature Source Temporal Artery Pulse Oximetry (%) 97 Oxygen Delivery Method room air Intake Visit Reasons: 1 Y FU Chief Complaint: Neurology FU Interactive Project Manager Required: No DME Vendor: Ezequiel Accompanied by: Zulma Is patient in pain?: No Allergies glatiramer (copolymer 1) (From Pharmapod) Allergy (Unknown, Verified 07/21/24 08:28) Itching Medications ???Medication ???Instructions ???Recorded ???Confirmed ???Type apixaban 5 mg tablet 5 mg PO BID blood thinner 07/20/18 09/09/24 History aspirin 81 mg chewable tablet 81 mg PO DAILY@0800 heart health 0 07/20/18 09/09/24 History carvedilol 12.5 mg tablet 12.5 mg PO BID blood pressure 04/0 12/3009/09/24 History fenofibrate nanocrysta (more content not included)... Normal [facility] CNOVon 09-06-2024 CNOV Office Visit (FAMPWS ) -------- JENNI ALBRIGHT ([id number]) 1950 F Date Time Provider Department 09/06/24 8:40 AM EDMUNDO CRUZ FAMPWS During your visit today, we recorded the following information about you: Pulse Respiration Blood pressure Weight 96/minute 20/minute 128/82 104.5 kg Edmundo Cruz MD 09/06/2024 4:47 PM Signed Chief Complaint Patient presents with: 6 Month Exam HPI Jenni Albright is a 73 year old female who presents here today for 6 month follow up. Here with , [place]. Their grandson just graduated from [employer], he is going to be going to [employer] on football. Has an advanced directive. No bowel, Gi, or urinary issues. GERD: Sx controlled on Nexium 40 mg daily. HTN/CHF: Taking Coreg 25 mg half pill BID, Losartan 50 mg daily, Aldactone 25 mg daily. No chest pains, dizziness, or SOB. Follows with Cardio Dr. Draper. Denies checking BP at home. Has a pacemaker. PE AND DVT: Taking Eliquis 5 mg BID. Follows with Dr. Armani Ingram for vitamin d deficiency. No longer taking vitamin D3 50,000 international unit(s) weekly. Has had elevated calcium and PTH. Lipid/CAD/glucose: Taking Pravastatin 40 mg daily and tricor 145 mg daily. Denies watching diet or exercising. MS: Taking Gabapentin 800 mg 1 pill TID, Tecfidera 240 mg BID and Vumerity 231 mg BID. Follows with Neuro Dr. Clemente. REBECCA AND Asthma: Uses CPAP every night. Follows with salomon Berger. Is using Albuterol inhaler prn and Symbicort inhaler BID. Past medical history, appointments, medications, allergies reviewed. 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 11/19/2015 BBB (bundle branch block) CAD (coronary artery disease) 07/2013 non-STMI/CABG CHB (complete heart block) (HCC) Congestive heart failure (HCC) GERD (gastroesophageal reflux disease) hiatal hernia History of DVT (deep vein thrombosis) 09/14/2015 History of rectal polypectomy 07/2011 Hyperlipidemia Hypertension Iron deficiency anemia Multiple sclerosis (HCC) Neuropathic pain Legs>arms from MS REBECCA (obstructive sleep apnea) on CPAP Pacemaker Pulmonary embolism (HCC) 07/2013 during hospitalization for NE Vitamin D deficiency Previous Surgical History PAST SURGICAL HISTORY Procedure Laterality Date APPENDECTOMY BIVENTICULAR PACEMAKER INSERTION 09/05/2014 [employer] CABG (2) VEIN GRAFTS AND ARTERIAL GRAFT(S 07/22/2013 THURMAN to LAD and Dx CARPAL TUNNEL COLONOSCOPY 08/01/2011 5mm rectal polyp COLONOSCOPY 12/05/2015 rectal polyp (adenoma) and diverticulosis CYSTOSCOPY 09/21/2018 EGD 07/17/2011 sliding hiatal hernia EGD 11/19/2015 Dr. Lema- HEART CATHETERIZATION 01/29/2016 HEART CATHETERIZATION 07/21/2013 The patient was advised a cardiothoracic consultation for coronary artery bypass surgery. Mid and distal LAD has severe disease. This is not suitable for percutaneous intervention and it is a bifurcation lesion. 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 Thiago Verdugo REMV CATARACT EXTRACAP,INSERT LENS Left 04/16/2017 Dr. Das ROTATOR CUFF REPAIR Right TOTAL ABDOM HYSTERECTOMY 1983 VENA CAVA FILTER INSERTION 08/16/2013 Family History FAMILY HISTORY Problem Relation Age of Onset Diabetes Mother Coronary Artery Disease Mother NE's Cancer Father Heart Sister NE's, valve replaced Stroke Sister Ovarian cancer Sister Multiple Sclerosis Sister Hypertension Sister Coronary Artery Disease Brother 2 brothers CABG Aneurysm Brother Calcium Disorder No Family History Parathyroid Disease No Family History Osteoporosis No Family History Patient Allergies ALLERGIES Allergen Reactions Glatiramer Rash, Itching Current Medications Current Outpatient Medications on File Prior to Visit Medication Sig esomeprazole (NEXIUM) 40 mg capsule Take 1 capsule by mouth daily before breakfast. 1/2 hr before meal. spironolactone (ALDACTONE) 25 mg tablet Take 1 tablet by mouth once daily. fenofibrate nanocrystallized (TRICOR) 145 mg tablet Take 1 tablet by mouth once daily. losartan (COZAAR) 50 mg tablet Take 1 tablet by mouth once daily. ergocalciferol 50,000 unit capsule (VITAMIN D2, DRISDOL) Take 1 capsule by mouth one time a week. carvedilol (COREG) 25 mg tablet Take 0.5 tablets by mouth two times a day. cholecalciferol, Vitamin D3, (VITAMIN D3) 1,250 mcg (50,000 unit) cap capsule Take 1 capsule by mouth one time a week. apixaban (ELIQUIS) 5 mg tab(s) Take 1 tablet by mouth two times a day. pravastatin (PRAVACHOL) 40 mg tablet Take 1 tablet by mouth daily at bedtime. magnesium oxide (MAGOX) 400 mg (241.3 mg magnesium) tablet Take 1 tablet by mouth two times a day. DULoxetine (CYMBALTA) 60 mg capsule Take 60 mg by mouth two times a day. (more content not included)... Normal [facility] Body Fluid Culton 08-31-2024 BFC UNK UNK No growth in 5 days. Normal [facility] Comment on above: Performed By: #### M 100.1999, L200.4175, L200.0200, M100.4001, M100.2900 ####[facility] [address] [place], [address] Culture, Anaerobic Any Sourc silke 08-31-2024 CUAN UNK UNK No growth in 5 days. Normal [facility] Comment on above: Performed By: #### M 100.1999, L200.4175, L200.0200, M100.4001, M100.2900 ####[facility] [address] [place], [address] Crystals, Body Fluidon 08-30 PATH REV Reviewed Normal [facility] Comment on above: Result Comment: PRED OMINANTLY MACROPHAGES AND BLOOD. NO MALIGNANT CELLS IDENTIFIED. Shruthi Donato MD 08/30/2024 AMENDED REPORT 08/30/24 1316 PATH REV previously reported as: Will follow Performed By: #### M 100.1999, L200.4175, L200.0200, M100.4001, M100.2900 ####[facility] [address] [place], [address] Gram Stainon 08-26-2024 GS UNK UNK Gram Stain No organisms seen Normal [facility] Comment on above: Performed By: #### M 100.1999, L200.4175, L200.0200, M100.4001, M100.2900 ####[facility] [address] [place], [address] Anaerobic cultureOrdered By: Dylan Coronado on 08-25-2024 Bacteria identified Anaer cx Nom (Unsp spec) No growth in 5 days. [facility] Body Fluid Cell Count+Diffon 08-25-2024 Lymphocytes (Bld) [#/Vol] 4 10*3/uL Normal [facility] Comment on above: Order Comment: LEFT SHOULDER Performed By: #### M 100.1999, L200.4175, L200.0200, M100.4001, M100.2900 #### [facility] [address] [place], [address] MACROPHAGES 90 Normal [facility] Comment on above: Order Comment: LEFT SHOULDER Performed By: #### M 100.1999, L200.4175, L200.0200, M100.4001, M100.2900 #### [facility] [address] [place], [address] MONO/BF 0 Normal [facility] Comment on above: Order Comment: LEFT SHOULDER Performed By: #### M 100.1999, L200.4175, L200.0200, M100.4001, M100.2900 #### [facility] [address] [place], [address] APPEAR/BF CLOUDY Normal [facility] Comment on above: Order Comment: LEFT SHOULDER Performed By: #### M 100.1999, L200.4175, L200.0200, M100.4001, M100.2900 #### [facility] [address] [place], [address] COLOR/BF RED Normal [facility] Comment on above: Order Comment: LEFT SHOULDER Performed By: #### M 100.1999, L200.4175, L200.0200, M100.4001, M100.2900 #### [facility] [address] [place], [address] PMN 4 Normal [facility] Comment on above: Order Comment: LEFT SHOULDER Performed By: #### M 100.1999, L200.4175, L200.0200, M100.4001, M100.2900 #### [facility] [address] [place], [address] SOURCE/BF OTHER Normal [facility] Comment on above: Order Comment: LEFT SHOULDER Result Comment: SYNO VIAL FLUID LEFT SHOULDER Performed By: #### M 100.1999, L200.4175, L200.0200, M100.4001, M100.2900 #### [facility] [address] [place], [address] PATH COMM/BF May follow Normal [facility] Comment on above: Order Comment: LEFT SHOULDER Performed By: #### M 100.1999, L200.4175, L200.0200, M100.4001, M100.2900 #### [facility] [address] [place], [place], [id number] Body fluid appearance (nomin al result)Ordered By: Dylan Coronado on 08-25-2024 Appearance (Body fld) CLOUDY [facility] Body fluid color determinati onOrdered By: Dylan Coronado on 08-25-2024 Color (Body fld) RED [facility] Body fluid crystal identific ation by light microscopyOrdered By: Dylan Coronado on 08-25-2024 Crystals LM Nom (Body fld) TNP [facility] Comment on above: Test not performed Body fluid erythrocytes coun t (number/volume)Ordered By: Dylan Coronado on 08-25-2024 RBC (Body fld) [#/Vol] 15 10*3/uL [facility] Body fluid leukocytes count (number/volume)Ordered By: Dylan Coronado on 08-25-2024 WBC (Body fld) [#/Vol] 0.327 10*3/uL [facility] Body fluid lymphocytes/100 l eukocytesOrdered By: Dylan Coronado on 08-25-2024 Lymphocytes/100 WBC (Body fld) 4 % [facility] Body fluid macrophage countO rdered By: Dylan Coronado on 08-25-2024 Macrophages (Body fld) [#/Vol] 90 % [facility] Body fluid mononuclear cell percentageOrdered By: Dylan Coronado on 08-25-2024 Mononuclear cells/100 WBC (Body fld) 76.1 % [facility] Body fluid segmented neutrop hils count (number/volume)Ordered By: Dylan Coronado on 08-25-2024 Segmented neutrophils (Body fld) [#/Vol] 4 % [facility] Body fluid total cell countO rdered By: Dylan Coronado on 08-25-2024 Cells Counted Total (Body fld) [#] 0.475 10^3/ul High 0.000-0.000 [facility] Comment on above: This is the Total Nu mber of Nucleated Cell Types in the Body Fluid. Cyst Punctureon 08-25-2024 Cyst Puncture [facility] [address] [place] [address] [id number] Cyst Puncture MR#: [id number] Acct: [id number] Name: JENNI ALBRIGHT Rep #: [id number] : 1950 F 73 From: Mina Taylor PCP: Dr. Edmundo Cruz MD Status: REG CLI Study: Cyst Puncture Date of Exam: 08/25/24 Exam# [id number] Ordering Dr: Dylan Coronado DO PROCEDURE: CYST PUNCTURE 08/25/2024 REASON FOR EXAM: Large left glenohumeral joint effusion. TECHNIQUE: Following informed consent, and using standard sterile technique, an ultrasound-guided left glenohumeral joint fluid aspiration was performed. 21 gauge needle was placed under ultrasound guidance into the fluid collection, and a proximally 60 mL dark booker fluid was successfully removed, and sent to the laboratory for evaluation. No complication was encountered, and the patient left the department in good condition, without significant complaint. COMPARISON: CT examination of 06/17/2019. US/Cyst Puncture IMPRESSION: Successful left glenohumeral joint effusion aspiration. Laboratory results pending. Reading Location: [place] [address] CC: Dr. Edmundo Cruz MD; Dr. Dylan Coronado DO Upper Trimmer: Signed Normal [facility] Gram stainOrdered By: Ramonita Coronado on 08-25-2024 Microscopic observation Gram stain Nom (Unsp spec) [facility] Monocyte detectionOrdered By : Dylan Coronado on 08-25-2024 Monocytes/100 WBC (Bld) 0 % [facility] No Panel InformationOrdered By: Dylan Coronado on 08-25-2024 Body Fluid Comment 2 Not Reportable [facility] Pathologist interpretation o f Body fluid testsOrdered By: Dylan Coronado on 08-25-2024 Pathologist interpretation (Body fld) [Interp] May follow [facility] Review by pathologistOrdered By: Dylan Coronado on 08-25-2024 Pathologist review Robby (Unsp spec) [Interp] Reviewed [facility] Comment on above: Previous reported re sult: Will follow Edited by: MIRI on 08/30/24:1316PREDOMINANTLY MACROPHAGES AND BLOOD.NO MALIGNANT CELLS IDENTIFIED.Shruthi Donato MD 08/30/2024 AMENDED REPORT 08/30/24 1316 PATH REV previously reported as: Will follow Special Stain Group IIon Special Stain Group II ------- Patient Age/Sex Location Account Attending Physician JENNI ALBRIGHT 73/F RAD [id number] Dr. Dylan Coronado, Specimen: [id number] Received: 08/25/24-739 Status: JOSSY Barney Num: [id number] Spec Type: Fluid Subm Dr: Dr. Dylan Coronado DO HEADER OPERATION: Left should aspiration PRE-OP DIAGNOSIS: Effusion left shoulder TISSUE SUBMITTED: A- Left shoulder fluid for cytology DIAGNOSIS CYTOLOGY A. Left shoulder, fine needle aspiration (cytospin, cellblock): * No malignant cells identified. CYTOLOGY STUDY Slides are reviewed. CYTOLOGY GROSS Received is 40 ml of red-cloudy fluid labeled with the patient's name and and designated per the requisition as Left shoulder aspiration." Submitted for cytology (cytospin) and cell block preparation. Mr 08/26/2024 CPT: 19542, 31041 Signed (signature on file) Dr. Shruthi Donato MD 09/09/24 1141 [facility] Comment on above: Performed By: #### P SSII #### [facility] [address] [place], [place], [id number] Specimen source identificati on of body fluidOrdered By: Dylan Coronado on 08-25-2024 Specimen source Nom (Body fld) OTHER [facility] Comment on above: SYNOVIAL FLUID LEFT SHOULDER Specimen source Nom (Body fld) SYNOVIAL [facility] 25(OH)D3 SerPl-mCncon 2024 25-hydroxyvitamin D3 [Mass/Vol] 29.6 ng/mL Low 31.0-80.0 [facility] Comment on above: Order Comment: Speci men Type: BLOOD SPECIMEN Ordering Facility: [facility] Address: [address] [place] [address] Result Comment: Clas sification of 25 [place] Vitamin D status: Deficiency/Insufficiency: < or = 30 ng/ml. Sufficiency/Optimal Levels: 31-80 ng/mL Toxicity: > 100 ng/mL. Test performed by chemiluminescent immunoassay. Performed By: #### 1 989-3 #### [facility] CLIA [id number] [address] [place] [address] STATES OF [facility] ALK PHOS BONE SPECon 025 ALK PHOSPHATASE, BONE 16.5 ug/L Normal [facility] Comment on above: Order Comment: Speci men Type: URINE SPECIMEN Ordering Facility: [facility] Address: [address] [place] [address] Result Comment: INTE RPRETIVE INFORMATION: Bone Specific Alkaline Phosphatase Premenopausal Female: 4.5 - 16.9 ug/L Postmenopausal Female: 7.0 - 22.4 ug/L INTERPRETIVE INFORMATION: Bone Specific Alkaline Phosphatase Liver alkaline phosphatase can affect the measurement of bone specific alkaline phosphatase in this assay. Each 100 U/L of liver alkaline phosphatase contributes an additional 2.5 to 5.8 ug/L to the bone specific alkaline phosphatase result. Performed By: [facility] [address] [place] [address] Edgerman: Brandon Head MD, PhD CLIA Number: [id number] Performed By: #### 2 956-1 #### [facility] CLIA [id number] [address] [place] [id number] [place] [facility] CLIA [id number] [address] [place] [address] [place] CALCIUM, 24 HR URINEon 08-22 Calcium (24H U) [Mass/Time] 259.3 mg/24 hr Normal 100.0-300.0 [facility] Comment on above: Order Comment: Speci men Type: URINE SPECIMENOrdering Facility: [facility] Address: [address] [place] [address] Performed By: #### U CALCD ####[facility] [id number] [place] [address] [place] [facility] [id number] [place] [address] [place] CNPNon 08-22-2024 [facility] Telephone (FAMWS) -------- JENNI ALBRIGHT ([id number]) 1950 F Date Time Provider Department 08/22/[facility] During your visit today, we recorded the following information about you: Leah Caruso MA 08/22/2024 12:54 PM Signed Type of form: Form from [facility] for authorization to hold anti-thrombotic for shoulder injection procedure, by Dr. Coronado. Form received via fax When form is completed, Fax form to [phone] [facility] Radiology Dept. Form has been forwarded to Physician Desk: Dr. Nancy Caruso MA Allergies As of Date: 08/22/2024 Noted Allergy Reaction GLATIRAMER 07/20/2018 2 - Rash 9 - Itching Date Reviewed: 06/28/2024 Reviewed by: Kimi Bess MA - Fully Assessed Reason for Visit: Forms [913] Cmt: [facility] - Authorization to hold anti-thrombotic Prescriptions as of 09/16/2024 - SYMBICORT 160-4.5 mcg/actuation inhaler Inhale 2 puffs as instructed two times a day as needed. - ergocalciferol 50,000 unit capsule (VITAMIN D2, DRISDOL) TAKE 1 CAPSULE BY MOUTH ONE TIME A WEEK. - esomeprazole (NEXIUM) 40 mg capsule Take 1 capsule by mouth daily before breakfast. 1/2 hr before meal. - spironolactone (ALDACTONE) 25 mg tablet Take 1 tablet by mouth once daily. - fenofibrate nanocrystallized (TRICOR) 145 mg tablet Take 1 tablet by mouth once daily. - losartan (COZAAR) 50 mg tablet Take 1 tablet by mouth once daily. - carvedilol (COREG) 25 mg tablet Take 0.5 tablets by mouth two times a day. - apixaban (ELIQUIS) 5 mg tab(s) Take 1 tablet by mouth two times a day. - pravastatin (PRAVACHOL) 40 mg tablet Take 1 tablet by mouth daily at bedtime. - magnesium oxide (MAGOX) 400 mg (241.3 mg magnesium) tablet Take 1 tablet by mouth two times a day. - DULoxetine (CYMBALTA) 60 mg capsule Take 60 mg by mouth two times a day. - VUMERITY 231 mg capsule, delayed release Take 462 mg by mouth two times a day. Dr. Clemente - dimethyl fumarate (TECFIDERA) [address] Take 1 capsule by mouth twice daily. - gabapentin (NEURONTIN) 800 mg tablet Take 800 mg by mouth three times a day. - ALBUTEROL SULFATE HFA INHALATION Inhale 2 Puffs as instructed every 4 hours as needed. - baclofen (LIORESAL) 20 mg tablet Take by mouth three times daily as needed. 1 in am, 1in afternoon and 2 at bedtime - COMPOUNDED PRESCRIPTION One pair of shoes to fit over leg brace. Dx: G35; M79.2 - nitroglycerin sublingual (NITROQUICK) 0.4 mg SL tablet Dissolve 1 tablet under the tongue every 5 minutes as needed for Chest Pain. - multivitamin (MULTIPLE VITAMINS) tablet Take 1 tablet by mouth once daily. - aspirin, enteric coated (ASPIRIN, ENTERIC COATED) 81 mg EC tablet Take 81 mg by mouth once daily. - ferrous sulfate 325 mg (65 mg iron) tablet Take 325 mg by mouth daily with breakfast. Problem List As Of Date 08/22/2024 Noted Resolved Multiple sclerosis [G35] Neuropathic pain [M79.2] Hyperlipidemia [E78.5] GERD (gastroesophageal reflux disease) [K21.9] Vitamin D deficiency [E55.9] Back pain [M54.9] REBECCA (obstructive sleep apnea) [G47.33] Iron deficiency anemia [D50.9] History of rectal polypectomy [Z98.890, Z87.19] 07/13/2011 CAD (coronary artery disease) [I25.10] 07/12/2013 Pulmonary embolism (HCC) [I26.99] 07/12/2013 Essential hypertension [I10] 12/21/2014 Cardiac pacemaker [Z95.0] 09/14/2015 History of DVT (deep vein thrombosis) [Z86.718] 09/14/2015 Positive occult stool blood test [R19.5] 05/04/2018 Spastic hemiplegia, unspecified etiology, unspe*08/19/2022 Morbid obesity (HCC) [E66.01] 08/19/2022 Congestive heart failure, unspecified HF chroni*08/19/2022 PAF (paroxysmal atrial fibrillation) (HCC) [I48*08/19/2022 Abnormal result of other cardiovascular functio*11/22/2014 Diagnosed: 11/10/2022 Biventricular implantable cardioverter-defibril* Diagnosed: 11/10/2022 Calf pain [M79.669] 2021 Diagnosed: 11/10/2022 Cervico-occipital neuralgia [M54.81] 06/17/2016 Diagnosed: 11/10/2022 correction current use of anticoagulant therapy *11/10/2022 Diagnosed: 11/10/2022 Delirium [R41.0] 11/10/2022 Diagnosed: 11/10/2022 Dysphagia [R13.10] 01/09/2022 Diagnosed: 11/10/2022 Dyspnea on exertion [R06.09] 12/19/2021 Diagnosed: 11/10/2022 Fatigue [R53.83] 11/10/2022 Diagnosed: 11/10/2022 Hereditary peripheral neuropathy [G60.9] 09/23/2015 Diagnosed: 11/10/2022 Idiopathic peripheral neuropathy [G60.9] 07/18/2014 Diagnosed: 11/10/2022 Irritable bowel syndrome [K58.9] 11/10/2022 Diagnosed: 11/10/2022 Neuralgia [M79.2] 12/06/2013 Diagnosed: 11/10/2022 Neurogenic bladder [N31.9] 11/10/2022 Diagnosed: 11/10/2022 Pain in both lower legs [M79.661, M79.662] 11/10/2022 Diagnosed: 11/10/2022 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 [facility] JENNI ALBRIGHT ([id number]) 1950 F Date Time Provider Department 08/22/24 NARCISA LOMELITR During your visit today, we recorded the following information about you: Rosy Orosco RN 08/22/2024 3:35 PM Signed Call received from [facility] Main Lab at 3:31pm with report of critical lab results. Ionized calcium - 1.58 Normalized calcium - 1.54 Dr. Lomeli verbally notified at 3:40pm and given print out of results from Pt's chart. No new orders given. Rosy Orosco RN August 22, 2024 3:34 PM Allergies As of Date: 08/22/2024 Noted Allergy Reaction GLATIRAMER 07/20/2018 2 - Rash 9 - Itching Date Reviewed: 06/28/2024 Reviewed by: Kimi Bess MA - Fully Assessed Reason for Visit: Critical Results [1705] Prescriptions as of 08/22/2024 - esomeprazole (NEXIUM) 40 mg capsule Take 1 capsule by mouth daily before breakfast. 1/2 hr before meal. - spironolactone (ALDACTONE) 25 mg tablet Take 1 tablet by mouth once daily. - fenofibrate nanocrystallized (TRICOR) 145 mg tablet Take 1 tablet by mouth once daily. - losartan (COZAAR) 50 mg tablet Take 1 tablet by mouth once daily. - ergocalciferol 50,000 unit capsule (VITAMIN D2, DRISDOL) Take 1 capsule by mouth one time a week. - carvedilol (COREG) 25 mg tablet Take 0.5 tablets by mouth two times a day. - cholecalciferol, Vitamin D3, (VITAMIN D3) 1,250 mcg (50,000 unit) cap capsule Take 1 capsule by mouth one time a week. - apixaban (ELIQUIS) 5 mg tab(s) Take 1 tablet by mouth two times a day. - pravastatin (PRAVACHOL) 40 mg tablet Take 1 tablet by mouth daily at bedtime. - magnesium oxide (MAGOX) 400 mg (241.3 mg magnesium) tablet Take 1 tablet by mouth two times a day. - DULoxetine (CYMBALTA) 60 mg capsule Take 60 mg by mouth two times a day. - VUMERITY 231 mg capsule, delayed release Take 462 mg by mouth two times a day. Dr. Clemente - dimethyl fumarate (TECFIDERA) [address] Take 1 capsule by mouth twice daily. - SYMBICORT 160-4.5 mcg/actuation inhaler Inhale 2 Puffs as instructed twice daily as needed. - gabapentin (NEURONTIN) 800 mg tablet Take 800 mg by mouth three times a day. - ALBUTEROL SULFATE HFA INHALATION Inhale 2 Puffs as instructed every 4 hours as needed. - baclofen (LIORESAL) 20 mg tablet Take by mouth three times daily as needed. 1 in am, 1in afternoon and 2 at bedtime - COMPOUNDED PRESCRIPTION One pair of shoes to fit over leg brace. Dx: G35; M79.2 - nitroglycerin sublingual (NITROQUICK) 0.4 mg SL tablet Dissolve 1 tablet under the tongue every 5 minutes as needed for Chest Pain. - multivitamin (MULTIPLE VITAMINS) tablet Take 1 tablet by mouth once daily. - aspirin, enteric coated (ASPIRIN, ENTERIC COATED) 81 mg EC tablet Take 81 mg by mouth once daily. - ferrous sulfate 325 mg (65 mg iron) tablet Take 325 mg by mouth daily with breakfast. Problem List As Of Date 08/22/2024 Noted Resolved Multiple sclerosis [G35] Neuropathic pain [M79.2] Hyperlipidemia [E78.5] GERD (gastroesophageal reflux disease) [K21.9] Vitamin D deficiency [E55.9] Back pain [M54.9] REBECCA (obstructive sleep apnea) [G47.33] Iron deficiency anemia [D50.9] History of rectal polypectomy [Z98.890, Z87.19] 07/13/2011 CAD (coronary artery disease) [I25.10] 07/12/2013 Pulmonary embolism (HCC) [I26.99] 07/12/2013 Essential hypertension [I10] 12/21/2014 Cardiac pacemaker [Z95.0] 09/14/2015 History of DVT (deep vein thrombosis) [Z86.718] 09/14/2015 Positive occult stool blood test [R19.5] 05/04/2018 Spastic hemiplegia, unspecified etiology, unspe*08/19/2022 Morbid obesity (HCC) [E66.01] 08/19/2022 Congestive heart failure, unspecified HF chroni*08/19/2022 PAF (paroxysmal atrial fibrillation) (HCC) [I48*08/19/2022 Abnormal result of other cardiovascular functio*11/22/2014 Diagnosed: 11/10/2022 Biventricular implantable cardioverter-defibril* Diagnosed: 11/10/2022 Calf pain [M79.669] 2021 Diagnosed: 11/10/2022 Cervico-occipital neuralgia [M54.81] 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 *11/10/2022 Diagnosed: 11/10/2022 Delirium [R41.0] 11/10/2022 Diagnosed: 11/10/2022 Dysphagia [R13.10] 01/09/2022 Diagnosed: 11/10/2022 Dyspnea on exertion [R06.09] 12/19/2021 Diagnosed: 11/10/2022 Fatigue [R53.83] 11/10/2022 Diagnosed: 11/10/2022 Hereditary peripheral neuropathy [G60.9] 09/23/2015 Diagnosed: 11/10/2022 Idiopathic peripheral neuropathy [G60.9] 07/18/2014 Diagnosed: 11/10/2022 Irritable bowel syndrome [K58.9] 11/10/2022 Diagnosed: 11/10/2022 Neuralgia [M79.2] 12/06/2013 Diagnosed: 11/10/2022 Neurogenic bladder [N31.9] 11/10/2022 Diagnosed: 11/10/2022 Pain in both lower legs [M79.661, M79.662] 11/10/2022 Diagnosed: 11/10/2022 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 Normal [facility] CREATININE, 24 HOUR URINEon 08-22-2024 Creatinine (24H U) [Mass/Time] 0.959 g/24 hr Normal 0.800-1.800 [facility] Comment on above: Order Comment: Speci men Type: URINE SPECIMENOrdering Facility: [facility] Address: [address] [place] [address] Performed By: #### U CRD ####[facility] [id number] [place] [address] [place] [facility] [id number] [address] [place] Calcium.ionized [Moles/Vol]o n 08-22-2024 Calcium.ionized (Bld) [Mass/Vol] 1.58 mmol/L High 1.08-1.30 [facility] Comment on above: Order Comment: Speci men Type: BLOOD SPECIMENOrdering Facility: [facility] Address: [address] [place] [address] Performed By: #### 1 995-0 ####[facility] LABCLIA [id number] [address] [address] [place] Calcium.ionized adjusted to pH 7.4 (Bld) [Moles/Vol] 1.54 mmol/L High 1.08-1.30 [facility] Comment on above: Order Comment: Speci men Type: BLOOD SPECIMENOrdering Facility: [facility] Address: [address] [place] [address] Performed By: #### 1 995-0 ####[facility] LABCLIA [id number] [place] [address] [place] Comprehensive metabolic 2000 panelon 08-22-2024 Albumin [Mass/Vol] 4.5 g/dL Normal 3.9-4.9 [facility] Comment on above: Order Comment: Speci men Type: BLOOD SPECIMENOrdering Facility: [facility] Address: [address] [place] [address] Performed By: #### 1 9123-9, 04884-2, 2777-1 ####[facility]ITAL[facility] [id number] [place] [address] [place] ALP [Catalytic activity/Vol] 82 U/L Normal 34-123 [facility] Comment on above: Order Comment: Speci men Type: BLOOD SPECIMENOrdering Facility: [facility] Address: [address] [place] [address] Performed By: #### 1 9123-9, 17795-8, 2777-1 ####[facility] MILLTOWNCLIA [id number] [place] [address] [place] ALT [Catalytic activity/Vol] 25 U/L Normal 7-38 [facility] Comment on above: Order Comment: Speci men Type: BLOOD SPECIMENOrdering Facility: [facility] Address: [address] [place] [address] Performed By: #### 1 9123-9, 11684-4, 2777-1 ####[facility] MILLWNCLIA [id number] [place] [address] [place] Anion gap [Moles/Vol] 10 mmol/L Normal 8-15 [facility] Comment on above: Order Comment: Speci men Type: BLOOD SPECIMENOrdering Facility: [facility] Address: [address] [place] [address] Performed By: #### 1 9123-9, 56428-9, 2777-1 ####[facility] MILLRAJWCURRYLIA [id number] [place] [address] [place] AST [Catalytic activity/Vol] 17 U/L Normal 13-35 [facility] Comment on above: Order Comment: Speci men Type: BLOOD SPECIMENOrdering Facility: [facility] Address: [address] [place] [address] Performed By: #### 1 9123-9, 52325-0, 2777-1 ####[facility] H[facility]ITALDERRICKA [id number] [place] [address] [place] Bilirubin [Mass/Vol] 0.3 mg/dL Normal 0.2-1.3 [facility] Comment on above: Order Comment: Speci men Type: BLOOD SPECIMENOrdering Facility: [facility] Address: [address] [place] [address] Performed By: #### 1 9123-9, 80253-7, 2777-1 ####[facility] MILLRAJWCURRYLIA [id number] [place] [address] [place] Calcium [Mass/Vol] 11.5 mg/dL High 8.5-10.2 [facility] Comment on above: Order Comment: Speci men Type: BLOOD SPECIMENOrdering Facility: [facility] Address: [address] [place] [address] Performed By: #### 1 9123-9, 96522-0, 2777-1 ####[facility] MILLRAJWNCLIA [id number] [place] [address] [place] Chloride [Moles/Vol] 105 mmol/L Normal 98-107 [facility] Comment on above: Order Comment: Speci men Type: BLOOD SPECIMENOrdering Facility: [facility] Address: [address] [place] [address] Performed By: #### 1 9123-9, 46602-7, 2777-1 ####[facility] [id number] [place] [address] [place] CO2 [Moles/Vol] 25 mmol/L Normal 22-30 [facility] Comment on above: Order Comment: Speci men Type: BLOOD SPECIMENOrdering Facility: [facility] Address: [address] [place] [address] Performed By: #### 1 9123-9, 47795-7, 2777-1 ####[facility] [id number] [place] [address] [place] Creatinine [Mass/Vol] 0.70 mg/dL Normal 0.58-0.96 [facility] Comment on above: Order Comment: Speci men Type: BLOOD SPECIMENOrdering Facility: [facility] Address: [address] [place] [address] Performed By: #### 1 9123-9, 65420-9, 2777-1 ####[facility]ITALA [id number] [place] [address] [place] Creatinine and Glomerular filtration rate.predicted panel (S/P/Bld) 90 mL/min/1.73m??? Normal >=60 [facility] Comment on above: Order Comment: Speci men Type: BLOOD SPECIMENOrdering Facility: [facility] Address: [address] [place] [address] Result Comment: Jaye mated Glomerular Filtration Rate (eGFR) is calculated using the 2020 CKD-EPI creatinine equation. This equation utilizes serum creatinine, sex, and age as parameters. The creatinine assay has traceable calibration to isotope dilution-mass spectrometry. Refer to KDIGO guidelines for clinical interpretation. In patients with unstable renal function, e.g. those with acute kidney injury, the eGFR may not accurately reflect actual GFR. Performed By: #### 1 9123-9, 93595-2, 2776-04 ####[facility] LUCINA DESIRAJWNCLIA [id number] [place] [address] [place] Glucose [Mass/Vol] 121 mg/dL High 74-99 [facility] Comment on above: Order Comment: Ayaz jansen Type: BLOOD SPECIMENOrdering Facility: [facility] Address: [address] [place] [address] Result Comment: The [place] Diabetes Association (ADA) provides guidance for cutoff values for fasting glucose and random glucose. The ADA defines fasting as no caloric intake for at least 8 hours. Fasting plasma glucose results between 100 to 125 mg/dL indicate increased risk for diabetes (prediabetes). Fasting plasma glucose results greater than or equal to 126 mg/dL meet the criteria for diagnosis of diabetes. In the absence of unequivocal hyperglycemia, results should be confirmed by repeat testing. In a patient with classic symptoms of hyperglycemia or hyperglycemic crisis, random plasma glucose results greater than or equal to 200 mg/dL meet the criteria for diagnosis of diabetes. Reference: Standards of Medical Care in Diabetes 2016, [place] Diabetes Association. Diabetes Care. 2016.39(Suppl 1). Performed By: #### 1 9123-9, , 2776-04 ####[facility]ITALWNCLIA [id number] [place] [address] [place] Potassium [Moles/Vol] 4.2 mmol/L Normal 3.7-5.1 [facility] Comment on above: Order Comment: Ayaz jansen Type: BLOOD SPECIMENOrdering Facility: [facility] Address: [address] [place] [id number] Performed By: #### 1 9123-9, 41451-3, 2776-04 ####[facility]CL[facility] [id number] [place] [address] [place] Protein [Mass/Vol] 7.1 g/dL Normal 6.3-8.0 [facility] Comment on above: Order Comment: Speci men Type: BLOOD SPECIMENOrdering Facility: [facility] Address: [address] [place] [address] Performed By: #### 1 9123-9, 60611-4, 2777-1 ####[facility] [id number] [place] [address] [place] Sodium [Moles/Vol] 140 mmol/L Normal 136-144 [facility] Comment on above: Order Comment: Speci men Type: BLOOD SPECIMENOrdering Facility: [facility] Address: [address] [place] [address] Performed By: #### 1 9123-9, 49961-7, 2777-1 ####[facility] [id number] [place] [address] [place] Urea nitrogen [Mass/Vol] 20 mg/dL Normal 7-21 [facility] Comment on above: Order Comment: Speci men Type: BLOOD SPECIMENOrdering Facility: [facility] Address: [address] [place] [address] Performed By: #### 1 9123-9, 16766-3, 2777-1 ####[facility]ITALLIA [id number] [place] [address] [place] HbA1c (Bld)on 08-22-2024 Average glucose Estimated from glycated hemoglobin (Bld) [Mass/Vol] 120 mg/dL Normal [facility] Comment on above: Order Comment: Speci men Type: BLOOD SPECIMENOrdering Facility: [facility] Address: [address] [place] [address] Result Comment: eAG: (Estimated average glucose) is a calculated value from HgbA1c and is account retention representative of the average blood glucose level in the last 2-3 month period. Performed By: #### 5 5454-3 ####[facility] LABCLIA [id number] [address] [address] [place] HbA1c (Bld) [Mass fraction] 5.8 % High 4.3-5.6 [facility] Comment on above: Order Comment: Speci men Type: BLOOD SPECIMENOrdering Facility: [facility] Address: [address] [place] [address] Result Comment: [place] Diabetes Association guidelines indicate that patients with HgbA1c in the range 5.7-6.4% are at increased risk for development of diabetes, and intervention by lifestyle modification may be beneficial. HgbA1c greater or equal to 6.5% is considered diagnostic of diabetes. Performed By: #### 5 5454-3 ####[facility] LABCLIA [id number] [place] [address] [place] Lipid 1996 panelon 5 Cholesterol [Mass/Vol] 125 mg/dL Normal <200 [facility] Comment on above: Order Comment: Speci men Type: BLOOD SPECIMENOrdering Facility: [facility] Address: [address] [place] [address] Result Comment: <200 mg/dL, Desirable 200-239 mg/dL, Borderline high >239 mg/dL, High Performed By: #### 2 4331-1 ####[facility] LABCLIA [id number] [address] [address] [place] [facility] [id number] [place] [address] [place]#### 2731-8 ####[facility] LABCLIA [id number] [place] [address] [place] Cholesterol in HDL [Mass/Vol] 41 mg/dL Normal >39 [facility] Comment on above: Order Comment: Speci men Type: BLOOD SPECIMENOrdering Facility: [facility] Address: [address] [place] [address] Result Comment: 40-5 9 mg/dL, Acceptable >59 mg/dL, High: Negative risk factor for coronary heart disease <40 mg/dL, Low: Positive risk factor for coronary heart disease Performed By: #### 2 4331-1 ####[facility] LABCLIA [id number] [place] [address] [facility] [id number] [address] [place]#### 2731-8 ####[facility] LABCLIA [id number] [place] [address] [place] Cholesterol in LDL [Mass/Vol] 66 mg/dL Normal <100 [facility] Comment on above: Order Comment: Speci men Type: BLOOD SPECIMENOrdering Facility: [facility] Address: [address] [place] [address] Result Comment: <100 mg/dL, Optimal 100-129 mg/dL, Near optimal/above optimal 130-159 mg/dL, Borderline high 160-189 mg/dL, High >189 mg/dL, Very high Secondary prevention optimal LDL Cholesterol levels are recommended to be <70 mg/dL LDL cholesterol is calculated using the Cm-NIH equation. Performed By: #### 2 4331-1 ####[facility] LABCLIA [id number] [address] [id number] [address] [place]#### 2731-8 ####[facility] LABCLIA [id number] [place] [address] [place] Cholesterol in LDL/Cholesterol in HDL [Mass ratio] 1.61 {ratio} Normal <2.54 [facility] Comment on above: Order Comment: Speci men Type: BLOOD SPECIMENOrdering Facility: [facility] Address: [address] [place] [address] Result Comment: Refsade mace: 1. National Cholesterol Education Program ATP III Guideline At-A-Glance Quick Desk Reference: National Heart, Lung, and Blood [place]. National Institutes of Health. 2001: NIH Publication No. 01-3305. 2. An International Atherosclerosis Society position paper: global recommendations for the management of dyslipidemia: executive summary, Atherosclerosis. 2014: 232(2):410-413. Performed By: #### 2 4331-1 ####[facility] LABCLIA [id number] [id number] [place] [address] [place]#### 2731-8 ####[facility] LABCLIA [id number] [address] [place] Cholesterol in VLDL [Mass/Vol] 14 mg/dL Normal <30 [facility] Comment on above: Order Comment: Speci men Type: BLOOD SPECIMENOrdering Facility: [facility] Address: [address] [place] [address] Performed By: #### 2 4331-1 ####[facility] LABCLIA [id number] [place] [id number] [place] [address] [place]#### 2731-8 ####[facility] LABCLIA [id number] [place] [address] [place] Cholesterol non HDL [Mass/Vol] 84 mg/dL Normal <130 [facility] Comment on above: Order Comment: Speci men Type: BLOOD SPECIMENOrdering Facility: [facility] Address: [address] [place] [address] Result Comment: <130 mg/dL, Optimal 130-159 mg/dL, Near optimal/above optimal 160-189 mg/dL, Borderline high 190-219 mg/dL, High >219 mg/dL, Very high Secondary prevention optimal non HDL Cholesterol levels are recommended to be <100 mg/dL Performed By: #### 2 4331-1 ####[facility] LABCLIA [id number] [address] [place] [address] [place] [facility] [id number] [place] [address] [place]#### 2731-8 ####[facility] LABCLIA [id number] [address] [place] [address] [place] Cholesterol.total/Chol esterol in HDL [Mass ratio] 3.05 {ratio} Normal <5.10 [facility] Comment on above: Order Comment: Speci men Type: BLOOD SPECIMENOrdering Facility: [facility] Address: [address] [place], [place] [address] Performed By: #### 2 4331-1 ####[facility] LABCLIA [id number] [address] [place] [address] [place] [facility] [id number] [place] [address] [place]#### 2731-8 ####[facility] LABCLIA [id number] [address] [address] [place] FASTING TIME 12 hrs Normal [facility] Comment on above: Order Comment: Speci men Type: BLOOD SPECIMENOrdering Facility: [facility] Address: [address] [place] [address] Performed By: #### 2 4331-1 ####[facility] LABCLIA [id number] [address] [place] [address] [place] [facility] [id number] [place] [address] [place]#### 2731-8 ####[facility] LABCLIA [id number] [address] [address] [place] Triglyceride [Mass/Vol] 93 mg/dL Normal <150 [facility] Comment on above: Order Comment: Speci men Type: BLOOD SPECIMENOrdering Facility: [facility] Address: [address] [place], [place] [address] Result Comment: <150 mg/dL, Normal 150-199 mg/dL, Borderline high 200-499 mg/dL, High >499 mg/dL, Very high Performed By: #### 2 4331-1 ####[facility] LABCLIA [id number] [address] [address] [place] [facility] [id number] [place] [address] [place]#### 2731-8 ####[facility] LABCLIA [id number] [address] [address] [place] Magnesium SerPl-ncon 08-22 Magnesium [Mass/Vol] 2.1 mg/dL Normal 1.7-2.3 [facility] Comment on above: Order Comment: Speci men Type: BLOOD SPECIMENOrdering Facility: [facility] Address: [address] [place] [address] Performed By: #### 1 9123-9, 27009-1, 2777-1 ####[facility] [id number] [place] [address] [place] PTH-Intact SerPl-mCncon - Parathyrin.intact [Mass/Vol] 69 pg/mL High 15-65 [facility] Comment on above: Order Comment: Speci men Type: BLOOD SPECIMENOrdering Facility: [facility] Address: [address] [place] [address] Performed By: #### 2 4331-1 ####[facility] LABIA [id number] [address] [address] [place] [facility] [id number] [place] [address] [place]#### 2731-8 ####[facility] LABCLIA [id number] [address] [address] [place] Phosphate SerPl-mCncon 08-22 Phosphate [Mass/Vol] 2.4 mg/dL Low 2.7-4.8 [facility] Comment on above: Order Comment: Speci men Type: BLOOD SPECIMENOrdering Facility: [facility] Address: [address] [place] [address] Performed By: #### 1 9123-9, 67823-6, 2777-1 ####[facility] [id number] [place] [address] [place] Sodium 24h Ur-sRateon 2024 PERIOD (HRS) 24 hr Normal [facility] Comment on above: Order Comment: Speci men Type: URINE SPECIMEN [facility]: [facility] Address: [address] [place] [address] Performed By: #### 2 956-1 #### [facility] LAB CLIA [id number] [address] [place] [address] [place] [facility] [id number] [address] [place] [address] [place] Order Comment: Speci men Type: URINE SPECIMENOrdering Facility: [facility] Address: [address] [place] [address] Performed By: #### U CRD ####[facility] LABCLIA [id number] [place] [address] [place] [facility] [id number] [place] [address] [place] Performed By: #### U CALCD ####[facility] LABCLIA [id number] [place] [address] [place] [id number] [place] [address] [place] Sodium (24H U) [Moles/Time] 104 mmol/24 hr Normal 40-220 [facility] Comment on above: Order Comment: Speci men Type: URINE SPECIMEN [facility]: [facility] Address: [address] [place] [address] Performed By: #### 2 956-1 #### [facility] CLIA [id number] [address] [place] [address] [place] [facility] [id number] [address] [place] [address] [place] Specimen volume (24H U) 1.525 L Normal [facility] Comment on above: Order Comment: Speci men Type: URINE SPECIMEN Ordering Facility: [facility] Address: [address] [place], [place] [address] Performed By: #### 2 956-1 #### [facility] CLIA [id number] [address] [place] [address] [place] [facility] [id number] [address] [place] [address] [place] Order Comment: Speci men Type: URINE SPECIMENOrdering Facility: [facility] Address: [address] [place], [place] [address] Performed By: #### U CRD ####[facility] LABCLIA [id number] [place] [address] [place] [facility] [id number] [place] [address] [place] Performed By: #### U CALCD ####[facility] LABCLIA [id number] [address] [address] [place] [facility] [id number] [place] [address] [place] Vitamin D 1,25-Dihydroxyon 0 07-25-2024 VIT D 1,25 DIHY 70.9 pg/mL Normal 24.8-81.5 [facility] Comment on above: Result Comment: Perf ormed at: [facility] [address] [id number] [employer] Merchandiser: Jesus Riley MD, Phone: [phone] Performed By: #### L 500.4050, L100.0100, L3300.0960, L509.1000 #### [facility] [address] [place], [address] 1,25-dihydroxyvitamin D3 [Ma ss/Vol]Ordered By: García Clemente on 07-21-2024 Vitamin D 1,25-Dihydroxy 70.9 pg/mL 24.8-81.5 [facility] Comment on above: Performed at: [employer] [facility] [address] [id number] Director: Jesus Riley MD, Phone: [phone] Absolute lymphocyte countOrd ered By: García Clemente on 07-21-2024 Lymphocytes Auto (Unsp spec) [#/Vol] 0.44 10*3/uL Low 0.83-4.51 [facility] Absolute neutrophil countOrd ered By: García Clemente on 07-21-2024 Neutrophils (Bld) [#/Vol] 4.6 10*3/uL 2.0-7.7 [facility] Anion gap in Serum or Plasma Ordered By: García Clemente on 07-21-2024 Anion gap [Moles/Vol] 12 mmol/L 5-15 [facility] Automated lymphocyte count a s percentage of total leukocytesOrdered By: García Clemente on 07-21-2024 Lymphocytes/100 WBC Auto (Unsp spec) 7.7 % Low 19-41 [facility] BUN/creatinine ratioOrdered By: García Clemente on 07-21-2024 Urea nitrogen/Creatinine [Mass ratio] 19.8 mg/mg 10- [facility] Basophil percentageOrdered B y: García Clemente on 07-21-2024 Basophils/100 WBC (Bld) 0.5 % 0-1 [facility] Bilirubin, totalOrdered By: García Clemente on 07-21-2024 Bilirubin [Mass/Vol] 0.29 mg/dL 0.00-1.30 [facility] CBC W/Diff, Automatedon 07-12 0-2024 Absolute Lymph 0.44 X10 3/uL Low 0.83-4.51 [facility] Comment on above: Performed By: #### L 500.4050, L100.0100, L3300.0960, L509.1000 #### [facility] [address] [place], [address] Absolute Neut 4.6 X10 3/uL Normal 2.0-7.7 [facility] Comment on above: Performed By: #### L 500.4050, L100.0100, L3300.0960, L509.1000 #### [facility] [address] [place], [address] Basophils/100 WBC (Bld) 0.5 % Normal 0-1 [facility] Comment on above: Performed By: #### L 500.4050, L100.0100, L3300.0960, L509.1000 #### [facility] [address] [place], [address] Eosinophils/100 WBC (Bld) 2.3 % Normal 0-5 [facility] Comment on above: Performed By: #### L 500.4050, L100.0100, L3300.0960, L509.1000 #### [facility] [address] [place], [address] Erythrocyte distribution width (RBC) [Ratio] 13.9 % Normal 11.6-14.6 [facility] Comment on above: Performed By: #### L 500.4050, L100.0100, L3300.0960, L509.1000 #### [facility] [address] [place], [address] Hematocrit (Bld) [Volume fraction] 40.5 % Normal 37-47 [facility] Comment on above: Performed By: #### L 500.4050, L100.0100, L3300.0960, L509.1000 #### [facility] [address] [place], [address] Hemoglobin (Bld) [Mass/Vol] 12.6 g/dL Normal 12.0-15.0 [facility] Comment on above: Performed By: #### L 500.4050, L100.0100, L3300.0960, L509.1000 #### [facility] [address] [place], [address] IG% 0.500 Normal 0.0-0.9 [facility] Comment on above: Result Comment: IG% - Immature Granulocytes (promyelocytes, myelocytes and metamyelocytes) > 1% indicates that a LEFT SHIFT is Present. Performed By: #### L 500.4050, L100.0100, L3300.0960, L509.1000 #### [facility] [address] [place], [address] Lymphocytes/100 WBC (Bld) 7.7 % Low 19-41 [facility] Comment on above: Performed By: #### L 500.4050, L100.0100, L3300.0960, L509.1000 #### [facility] [address] [place], [address] MCH (RBC) [Entitic mass] 26.7 pg Low 27.0-32.0 [facility] Comment on above: Performed By: #### L 500.4050, L100.0100, L3300.0960, L509.1000 #### [facility] [address] [place], [address] MCHC (RBC) [Mass/Vol] 31.1 g/dL Low 32-36 [facility] Comment on above: Performed By: #### L 500.4050, L100.0100, L3300.0960, L509.1000 #### [facility] [address] [place], [address] MCV (RBC) [Entitic vol] 85.8 fL Normal 81-99 [facility] Comment on above: Performed By: #### L 500.4050, L100.0100, L3300.0960, L509.1000 #### [facility] [address] [place], [address] Monocytes/100 WBC (Bld) 9.3 % Normal 0-10 [facility] Comment on above: Performed By: #### L 500.4050, L100.0100, L3300.0960, L509.1000 #### [facility] [address] [place], [address] Neutrophils/100 WBC (Bld) 79.7 % High 47-70 [facility] Comment on above: Performed By: #### L 500.4050, L100.0100, L3300.0960, L509.1000 #### [facility] [address] [place], [address] Nucleated RBC (Bld) [#/Vol] 0 10*3/uL Normal 0-5 [facility] Comment on above: Performed By: #### L 500.4050, L100.0100, L3300.0960, L509.1000 #### [facility] [address] [place], [address] Platelet mean volume (Bld) [Entitic vol] 10.4 fL Normal 6.2-12.0 [facility] Comment on above: Performed By: #### L 500.4050, L100.0100, L3300.0960, L509.1000 #### [facility] [address] [place], [address] Platelets (Bld) [#/Vol] 303 10*3/uL Normal 150-450 [facility] Comment on above: Performed By: #### L 500.4050, L100.0100, L3300.0960, L509.1000 #### [facility] [address] [place], [address] RBC (Bld) [#/Vol] 4.72 10*6/uL Normal 4.2-5.4 [facility] Comment on above: Performed By: #### L 500.4050, L100.0100, L3300.0960, L509.1000 #### [facility] [address] [place], [address] RDW SD 43.7 fl Normal 35.1-43.9 [facility] Comment on above: Performed By: #### L 500.4050, L100.0100, L3300.0960, L509.1000 #### [facility] [address] [place], [address] WBC (Bld) [#/Vol] 5.7 10*3/uL Normal 4.4-11.0 [facility] Comment on above: Performed By: #### L 500.4050, L100.0100, L3300.0960, L509.1000 #### [facility] [address] [place], [address] Carbon dioxide, total [Moles /volume] in Central venous bloodOrdered By: García Clemente on 07-21-2024 CO2 [Moles/Vol] 22.6 mmol/L 21.0-32.0 [facility] Chloride assayOrdered By: Ra kimberlyn Clemente on 07-21-2024 Chloride [Moles/Vol] 105 mmol/L 98-108 [facility] Comprehensive Metabolic Prof ilon 07-21-2024 Albumin [Mass/Vol] 4.4 g/dL Normal 3.4-4.8 [facility] Comment on above: Performed By: #### L 500.4050, L100.0100, L3300.0960, L509.1000 #### [facility] [address] [place], [address] Albumin/Globulin [Mass ratio] 1.6 {ratio} Normal 0.9-2.4 [facility] Comment on above: Performed By: #### L 500.4050, L100.0100, L3300.0960, L509.1000 #### [facility] [address] [place], [address] ALK PHOS 88 U/L Normal 35-104 [facility] Comment on above: Performed By: #### L 500.4050, L100.0100, L3300.0960, L509.1000 #### [facility] [address] [place], [address] ALT [Catalytic activity/Vol] 35 U/L Normal <=34 [facility] Comment on above: Performed By: #### L 500.4050, L100.0100, L3300.0960, L509.1000 #### [facility] [address] [place], [address] AST [Catalytic activity/Vol] 27 U/L Normal <=31 [facility] Comment on above: Performed By: #### L 500.4050, L100.0100, L3300.0960, L509.1000 #### [facility] [address] [place], [address] Bilirubin [Mass/Vol] 0.29 mg/dL Normal 0.00-1.30 [facility] Comment on above: Performed By: #### L 500.4050, L100.0100, L3300.0960, L509.1000 #### [facility] [address] [place], [address] BUN/CRE 19.8 RATIO Normal 10-20 [facility] Comment on above: Performed By: #### L 500.4050, L100.0100, L3300.0960, L509.1000 #### [facility] [address] [place], [address] Calcium [Mass/Vol] 11.4 mg/dL High 7.6-11.0 [facility] Comment on above: Performed By: #### L 500.4050, L100.0100, L3300.0960, L509.1000 #### [facility] [address] [place], [address] Chloride [Moles/Vol] 105 mmol/L Normal 98-108 [facility] Comment on above: Performed By: #### L 500.4050, L100.0100, L3300.0960, L509.1000 #### [facility] [address] [place], [address] CO2 [Moles/Vol] 22.6 mmol/L Normal 21.0-32.0 [facility] Comment on above: Performed By: #### L 500.4050, L100.0100, L3300.0960, L509.1000 #### [facility] [address] [place], [address] Creatinine [Mass/Vol] 0.71 mg/dL Normal 0.70-1.20 [facility] Comment on above: Performed By: #### L 500.4050, L100.0100, L3300.0960, L509.1000 #### [facility] [address] [place], [address] GAP 12 Normal 5-15 [facility] Comment on above: Performed By: #### L 500.4050, L100.0100, L3300.0960, L509.1000 #### [facility] [address] [place], [address] GFR/1.73 sq M.predicted among non-blacks MDRD (S/P/Bld) [Vol rate/Area] 89 mL/min/{1.73_m2} Normal >60 [facility] Comment on above: Result Comment: mL/m in/1.73m2 CKD-EPI Creatinine Equation (2020) Performed By: #### L 500.4050, L100.0100, L3300.0960, L509.1000 #### [facility] [address] [place], [address] Globulin (S) [Mass/Vol] 2.8 g/dL Normal 2.2-4.2 [facility] Comment on above: Performed By: #### L 500.4050, L100.0100, L3300.0960, L509.1000 #### [facility] [address] [place], [address] Glucose [Mass/Vol] 120 mg/dL High 70-99 [facility] Comment on above: Performed By: #### L 500.4050, L100.0100, L3300.0960, L509.1000 #### [facility] [address] [place], [address] Potassium [Moles/Vol] 4.6 mmol/L Normal 3.3-5.1 [facility] Comment on above: Performed By: #### L 500.4050, L100.0100, L3300.0960, L509.1000 #### [facility] [address] [place], [address] Sodium [Moles/Vol] 139 mmol/L Normal 133-145 [facility] Comment on above: Performed By: #### L 500.4050, L100.0100, L3300.0960, L509.1000 #### [facility] [address] [place], [address] T PROT 7.2 g/dL Normal 5.9-8.4 [facility] Comment on above: Performed By: #### L 500.4050, L100.0100, L3300.0960, L509.1000 #### [facility] [address] [place], [address] Urea nitrogen [Mass/Vol] 14 mg/dL Normal 4-19 [facility] Comment on above: Performed By: #### L 500.4050, L100.0100, L3300.0960, L509.1000 #### [facility] [address] [place], [address] Eosinophil percentageOrdered By: García Clemente on 07-21-2024 Eosinophils/100 WBC (Bld) 2.3 % 0-5 [facility] Erythrocyte distribution wid th (RBC) [Ratio]Ordered By: García Clemente on 07-21-2024 Erythrocyte distribution width (RBC) [Entitic vol] 43.7 fL 35.1-43.9 [facility] Erythrocyte distribution wid th ratioOrdered By: García Clemente on 07-21-2024 Erythrocyte distribution width (RBC) [Ratio] 13.9 % 11.6-14.6 [facility] Erythrocyte distribution wid th standard deviationOrdered By: García Clemente on 07-21-2024 Erythrocyte distribution width (RBC) [Ratio] 43.7 fl 35.1-43.9 [facility] GFR/1.73 sq M.predicted alfonso g non-blacks MDRD (S/P/Bld) [Vol rate/Area]Ordered By: García Clemente on 07-21-2024 Estimated GFR (MDRD) Non-Af Amer 89 >60 [facility] Comment on above: mL/min/1.73m2 CKD-EP I Creatinine Equation (2020) Glomerular filtration rate ( GFR) estimation/1.73 sq m using serum, plasma, or whole bOrdered By: García Clemente on 07-21-2024 GFR/1.73 sq M.predicted among non-blacks MDRD (S/P/Bld) [Vol rate/Area] 89 mL/min/{1.73_m2} >60 [facility] Comment on above: mL/min/1.73m2 CKD-EP I Creatinine Equation (2020) Hematocrit Auto (Bld) [Volum e fraction]Ordered By: García Clemente on 07-21-2024 Hematocrit (Bld) [Volume fraction] 40.5 % 37-47 [facility] Hemoglobin measurementOrdere d By: García Clemente on 07-21-2024 Hemoglobin (Bld) [Mass/Vol] 12.6 g/dL 12.0-15.0 [facility] Immature granulocytes/100 WB C Auto (Bld)Ordered By: García Clemente on 07-21-2024 Immature granulocytes/100 WBC (Bld) 0.500 % 0.0-0.9 [facility] Comment on above: IG% - Immature Granu locytes (promyelocytes, myelocytes and metamyelocytes) > 1% indicates that a LEFT SHIFT is Present. Laboratory - Chemistry and C hemistry - challengeOrdered By: García Clemente on 07-21-2024 AST [Catalytic activity/Vol] 27 U/L <32 [facility] Lymphocytes Auto (Unsp spec) [#/Vol]Ordered By: García Clemente 07-21-2024 Lymphocytes (Bld) [#/Vol] 0.44 10*3/uL Low 0.83-4.51 [facility] Lymphocytes/100 WBC Auto (Un sp spec)Ordered By: García Clemente 07-21-2024 Lymphocytes/100 WBC (Bld) 7.7 % Low 19-41 [facility] MCV (mean corpuscular volume ) determinationOrdered By: García Clemente 07-21-2024 MCV (RBC) [Entitic vol] 85.8 fL 81-99 [facility] Mean corpuscular hemoglobin (MCH) determinationOrdered By: García Clemente 07-21-2024 MCH (RBC) [Entitic mass] 26.7 pg Low 27.0-32.0 [facility] Mean corpuscular hemoglobin concentration (MCHC) determinationOrdered By: García Clemente 07-21-2024 MCHC (RBC) [Mass/Vol] 31.1 g/dL Low 32-36 [facility] Mean platelet volume determi nationOrdered By: García Clemente on 07-21-2024 Platelet mean volume (Bld) [Entitic vol] 10.4 fL 6.2-12.0 [facility] Monocyte percentageOrdered B y: García Clemente on 07-21-2024 Monocytes/100 WBC (Bld) 9.3 % 0-10 [facility] Neurology Visit Reporton Neurology Visit Report [facility] [address], [address] [place] [address] OFFICE VISIT Date of Service: 07/21/24 MR#: [id number] Acct: [id number] Name: JENNI ALBRIGHT Rep #: [id number] : 1950 Provider: Dr. García heaton MD Age/Sex: 73/F Location: [facility] Status: Signed HPI HPI Chief Complaint: Neurology FU Details: Interim History: Jenni returns for follow-up. She has a history of hypertension, obstructive sleep apnea, coronary artery disease/NE, cardiac bradyarrhythmia status post pacemaker placement, hyperlipidemia, neurogenic bladder (she has an implanted bladder stimulator), and multiple sclerosis. She had migraine headaches in years past; these resolved around 2000. Her symptoms of multiple sclerosis began in 1968, when she developed gait imbalance and right leg numbness. She had multiple falls. She was diagnosed with multiple sclerosis at that time. She reported that a lumbar puncture performed years later revealed findings consistent with multiple sclerosis (official report is presently not available). Over the years, she has had exacerbations of her multiple sclerosis manifesting with weakness that, at various times, has affected the upper and lower extremities. She has also had episodes of numbness affecting the arms, legs, torso and face. In 2021, she developed worsening of dysphagia and had a speech therapy evaluation including a modified barium swallow; small bites, easy to chew food and small sips by straw only were recommended. She had another exacerbation of her multiple sclerosis in January 2022 that manifested with left-sided weakness affecting the face, arm and leg; she required assistance to arise from bed; she was treated with a 3-day course of IV methylprednisolone followed by a 6-day prednisone taper beginning at 60 mg daily and had improvement of her left-sided motor symptoms and returned to her baseline. In November 2020, she had an exacerbation of her multiple sclerosis that manifested with more diffuse pain of burning character (affecting her entire body), dysphagia, tremulousness, easy irritability, and bilateral lower extremity weakness. She has neuropathic pain in the lower extremities (extending from the hip to the foot in the right leg and from the knee to the foot and the left leg). Gabapentin 800 mg 3 times daily and duloxetine duloxetine (60 mg every morning and 30 mg every late afternoon; a bedtime dose caused insomnia) have been of benefit for her neuropathic pain, however her nighttime lower extremity neuropathic pain has increased recently. She had modest improvement of her symptoms following a 3-day course of IV Solu-Medrol followed by a 6-day prednisone taper in December 2020, however her lower extremity weakness remained prominent. A course of Acthar in February 2021 was not of benefit. Her last exacerbation of multiple sclerosis prior to November 2020 occurred in March 2020 and manifested with increased numbness. Over the years, she has been treated with courses of IV methylprednisolone as well as oral corticosteroid and these have been of benefit for exacerbations. She had received IV methylprednisolone about once per year within recent years. In 2022, she had increased neuropathic pain in the feet that she described as a needle sensation. She had an exacerbation of her multiple sclerosis in December 2023 manifesting with numbness affecting the left arm, left leg, left abdominal region and left side of the face; she was treated with a 3-day course of IV methylprednisolone followed by 2 courses of prednisone tapers (she had a suboptimal response to corticosteroid therapy following her first prednisone taper) and had improvement of her symptoms. Later in 2023, she had increased weakness in the lower lower extremities. She was treated with a 3 day course of IV methylprednisolone followed by a 6 day prednisone taper beginning at 60mg daily and has had improvement of her lower extremity strength and lower extremity pain. She is tolerating Vumerity well. Her exacerbations of multiple sclerosis have generally lasted up to 2 weeks and, overall, she had progression in the degree of her disability. At her baseline, s he has pronounced bilateral lower extremity weakness. She wears a right AFO. She is able to ambulate with the use of a walker. She has chronic low back pain. Baclofen is of benefit for her muscle spasms in the arms and legs. Prior physical therapy was not of benefit for her low back pain. She has chronic fatigue. A B12 injection and amantadine were not of benefit for her fatigue. She has had memory difficulty that worsened in 2020. She has a history of vitamin D deficiency and took vitamin D 5000 units daily for a period of time. Her last vitamin D level (07/2020) was mildly elevated and high-dose vitamin D supplementation was discontinued (she received some vitamin D in a daily multivitamin she t (more content not included)... Normal [facility] Neutrophil percentageOrdered By: García Clemente on 07-21-2024 Neutrophils/100 WBC (Bld) 79.7 % High 47-70 [facility] Nucleated red blood cell per centageOrdered By: García Clemente on 07-21-2024 Nucleated RBC/100 WBC (Bld) [Ratio] 0 % 0-5 [facility] PTH intactOrdered By: Jalil Clemente on 07-21-2024 Parathyroid Hormone (Intact) 67 pg/mL High [facility] PTHINon 07-21-2024 PTH 67 pg/mL High [facility] Comment on above: Performed By: #### L 500.4050, L100.0100, L3300.0960, L509.1000 #### [facility] [address] [place], [address] Platelet countOrdered By: Ra kimberlyn Clemente on 07-21-2024 Platelets (Bld) [#/Vol] 303 10*3/uL 150-450 [facility] Potassium (Unsp spec) [Mass/ Vol]Ordered By: García Clemente on 07-21-2024 Potassium [Moles/Vol] 4.6 mmol/L 3.3-5.1 [facility] Potassium measurement (mass/ volume)Ordered By: García Clemente on 07-21-2024 Potassium (Unsp spec) [Mass/Vol] 4.6 mmol/L 3.3-5.1 [facility] RBC Auto (Bld) [#/Vol]Ordere d By: García Clemente on 07-21-2024 RBC (Bld) [#/Vol] 4.72 10*6/uL 4.2-5.4 [facility] Serum creatinine measurement (mass/volume)Ordered By: García Clemente on 07-21-2024 Creatinine [Mass/Vol] 0.71 mg/dL 0.70-1.20 [facility] Serum globulin measurementOr dered By: García Clemente on 07-21-2024 Globulin (S) [Mass/Vol] 2.8 g/dL 2.2-4.2 [facility] Serum glucose measurement (m ass/volume)Ordered By: García Clemente on 07-21-2024 Glucose [Mass/Vol] 120 mg/dL High 70-99 [facility] Serum or plasma alanine aguila otransferase (ALT) measurementOrdered By: García Clemente on 07-21-2024 ALT [Catalytic activity/Vol] 35 U/L <35 [facility] Serum or plasma albumin sadaf urement (mass/volume)Ordered By: García Clemente on 07-21-2024 Albumin [Mass/Vol] 4.4 g/dL 3.4-4.8 [facility] Serum or plasma albumin/glob ulin mass ratioOrdered By: García Clemente on 07-21-2024 Albumin/Globulin [Mass ratio] 1.6 {ratio} 0.9-2.4 [facility] Serum or plasma alkaline xena sphatase measurementOrdered By: García Clemente on 07-21-2024 ALP [Catalytic activity/Vol] 88 U/L 35-104 [facility] Serum or plasma calcitriol m easurement (mass/volume)Ordered By: García Clemente on 07-21-2024 1,25-dihydroxyvitamin D3 [Mass/Vol] 70.9 pg/mL 24.8-81.5 [facility] Comment on above: Performed at: [address] [id number] Director: Jesus Riley MD, Phone: [phone] Serum or plasma calcium sadaf urement (mass/volume)Ordered By: García Clemente on 07-21-2024 Calcium [Mass/Vol] 11.4 mg/dL High 7.6-11.0 [facility] Serum or plasma urea nitroge n measurement (mass/volume)Ordered By: García Bryn on 07-21-2024 Urea nitrogen [Mass/Vol] 14 mg/dL 4-19 [facility] Sodium levelOrdered By: James Marvindee dee on 07-21-2024 Sodium [Moles/Vol] 139 mmol/L 133-145 [facility] Total proteinOrdered By: Enzo Marvindee dee on 07-21-2024 Protein [Mass/Vol] 7.2 g/dL 5.9-8.4 [facility] White blood cell (WBC) count Ordered By: García Bryn on 07-21-2024 WBC (Bld) [#/Vol] 5.7 10*3/uL 4.4-11.0 [facility] CNPNon 07-07-2024 CNPN Telephone (AMARI) -------- JENNI ALBRIGHT ([id number]) 1950 F Date Time Provider Department 07/07/24 LANDON JONES During your visit today, we recorded the following information about you: Millie Reardon 07/07/2024 1:12 PM Signed I called the patient and rescheduled 07/13 with and device, with Halina and device on 09/22/24 @ 9:00,confirmed.Millie Reardon Allergies As of Date: 07/07/2024 Noted Allergy Reaction GLATIRAMER 07/20/2018 2 - Rash 9 - Itching Date Reviewed: 06/28/2024 Reviewed by: Kimi Bess MA - Fully Assessed Reason for Visit: Appointment [186] Cmt: Reschedule/Device Prescriptions as of 07/07/2024 - ergocalciferol 50,000 unit capsule (VITAMIN D2, DRISDOL) Take 1 capsule by mouth one time a week. - carvedilol (COREG) 25 mg tablet Take 0.5 tablets by mouth two times a day. - cholecalciferol, Vitamin D3, (VITAMIN D3) 1,250 mcg (50,000 unit) cap capsule Take 1 capsule by mouth one time a week. - apixaban (ELIQUIS) 5 mg tab(s) Take 1 tablet by mouth two times a day. - pravastatin (PRAVACHOL) 40 mg tablet Take 1 tablet by mouth daily at bedtime. - losartan (COZAAR) 50 mg tablet Take 1 tablet by mouth once daily. - spironolactone (ALDACTONE) 25 mg tablet Take 1 tablet by mouth once daily. - magnesium oxide (MAGOX) 400 mg (241.3 mg magnesium) tablet Take 1 tablet by mouth two times a day. - esomeprazole (NEXIUM) 40 mg capsule Take 1 capsule by mouth daily before breakfast. 1/2 hr before meal. - fenofibrate nanocrystallized (TRICOR) 145 mg tablet Take 1 tablet by mouth once daily. - DULoxetine (CYMBALTA) 60 mg capsule Take 60 mg by mouth two times a day. - VUMERITY 231 mg capsule, delayed release Take 462 mg by mouth two times a day. Dr. Clemente - dimethyl fumarate (TECFIDERA) [address] Take 1 capsule by mouth twice daily. - SYMBICORT 160-4.5 mcg/actuation inhaler Inhale 2 Puffs as instructed twice daily as needed. - gabapentin (NEURONTIN) 800 mg tablet Take 800 mg by mouth three times a day. - ALBUTEROL SULFATE HFA INHALATION Inhale 2 Puffs as instructed every 4 hours as needed. - baclofen (LIORESAL) 20 mg tablet Take by mouth three times daily as needed. 1 in am, 1in afternoon and 2 at bedtime - COMPOUNDED PRESCRIPTION One pair of shoes to fit over leg brace. Dx: G35; M79.2 - nitroglycerin sublingual (NITROQUICK) 0.4 mg SL tablet Dissolve 1 tablet under the tongue every 5 minutes as needed for Chest Pain. - multivitamin (MULTIPLE VITAMINS) tablet Take 1 tablet by mouth once daily. - aspirin, enteric coated (ASPIRIN, ENTERIC COATED) 81 mg EC tablet Take 81 mg by mouth once daily. - ferrous sulfate 325 mg (65 mg iron) tablet Take 325 mg by mouth daily with breakfast. Problem List As Of Date 07/07/2024 Noted Resolved Multiple sclerosis [G35] Neuropathic pain [M79.2] Hyperlipidemia [E78.5] GERD (gastroesophageal reflux disease) [K21.9] Vitamin D deficiency [E55.9] Back pain [M54.9] REBECCA (obstructive sleep apnea) [G47.33] Iron deficiency anemia [D50.9] History of rectal polypectomy [Z98.890, Z87.19] 07/13/2011 CAD (coronary artery disease) [I25.10] 07/12/2013 Pulmonary embolism (HCC) [I26.99] 07/12/2013 Essential hypertension [I10] 12/21/2014 Cardiac pacemaker [Z95.0] 09/14/2015 History of DVT (deep vein thrombosis) [Z86.718] 09/14/2015 Positive occult stool blood test [R19.5] 05/04/2018 Spastic hemiplegia, unspecified etiology, unspe*08/19/2022 Morbid obesity (HCC) [E66.01] 08/19/2022 Congestive heart failure, unspecified HF chroni*08/19/2022 PAF (paroxysmal atrial fibrillation) (HCC) [I48*08/19/2022 Abnormal result of other cardiovascular functio*11/22/2014 Diagnosed: 11/10/2022 Biventricular implantable cardioverter-defibril* Diagnosed: 11/10/2022 Calf pain [M79.669] 2021 Diagnosed: 11/10/2022 Cervico-occipital neuralgia [M54.81] 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 *11/10/2022 Diagnosed: 11/10/2022 Delirium [R41.0] 11/10/2022 Diagnosed: 11/10/2022 Dysphagia [R13.10] 01/09/2022 Diagnosed: 11/10/2022 Dyspnea on exertion [R06.09] 12/19/2021 Diagnosed: 11/10/2022 Fatigue [R53.83] 11/10/2022 Diagnosed: 11/10/2022 Hereditary peripheral neuropathy [G60.9] 09/23/2015 Diagnosed: 11/10/2022 Idiopathic peripheral neuropathy [G60.9] 07/18/2014 Diagnosed: 11/10/2022 Irritable bowel syndrome [K58.9] 11/10/2022 Diagnosed: 11/10/2022 Neuralgia [M79.2] 12/06/2013 Diagnosed: 11/10/2022 Neurogenic bladder [N31.9] 11/10/2022 Diagnosed: 11/10/2022 Pain in both lower legs [M79.661, M79.662] 11/10/2022 Diagnosed: 11/10/2022 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]2021 Diagnosed: 11/10/2022 Personal history of pulmonary embolism [Z86.711]09/14/2013 Diagnosed: 11/10/2022 Problem [[id number]] 11/10/2022 Diagnosed: 11/10/2022 S/ (more content not included)... [facility] CNOVon 06-28-2024 CNOV Office Visit (ENWSTR ) -------- JENNI ALBRIGHT ([id number]) 1950 F Date Time Provider Department 06/28/24 9:40 AM NARCISA LOMELI ENWSTR During your visit today, we recorded the following information about you: Temperature Pulse Weight 98.7 degrees 82/minute 102.1 kg Narcisa Lomeli MD 06/28/2024 7:09 PM Addendum Endocrinology [facility] [place] Follow up note NAME: Jenni Albright is a 73 year old old female PCP: Edmundo Cruz MD Requesting Provider: Deion Russell APRN. 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 She is accompanied by her Initial/last visit 03/28/2024 From prior documentation, with updates today She has had high calcium for over 3 years, but reports she was not aware of this Has a hx of MS Personal history of kidney stones: no Personal history of fractures: None Family history of osteoporosis: no Height loss: unknown Weight <127 lbs: No Prior radiation to the neck: no Personal history of thyroid disease: no Family history of calcium issues, thyroid or parathyroid disease: no Calcium Intake: Patient eats ~1 serving of calcium/day- 1 yogurt cup every morning, started drinking milk 1 glass a day, some times drinks orange juice when it is on sale Patient takes multivitamins, but no separate calcium supplements or tums Vitamin D Intake: I stared her on 50,000 units of Vitamin d which she has not completed course for yet No recent or prolonged steroid use Smoking: Ex-smoker- remote hx Alcohol: occasionally Exercise: no regular exercise program History of falls: reports her legs give out sometimes due to MS, and has falls occasionally Menopause at age: 40s, she had partial hysterectomy due to large tumor on the uterus, surgical pathology was benign HRT: No No hx of cancer or radiation therapy Denied any steroid use, use of lithium or HCTZ in the past Has constipation for several years, and this is baseline for her Denied any symptoms at this time include anorexia, N/V, polyuria, polydipsia, blood in urine, bone pains She had multiple falls since last visit, the one on 06/16/24 was "big" she reports falling in the bathroom, she did not seek medical attention for this. 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 11/19/2015 BBB (bundle branch block) CAD (coronary artery disease) 07/2013 non-STMI/CABG CHB (complete heart block) (HCC) Congestive heart failure (HCC) GERD (gastroesophageal reflux disease) hiatal hernia History of DVT (deep vein thrombosis) 09/14/2015 History of rectal polypectomy 07/2011 Hyperlipidemia Hypertension Iron deficiency anemia Multiple sclerosis (HCC) Neuropathic pain Legs>arms from MS REBECCA (obstructive sleep apnea) on CPAP Pacemaker Pulmonary embolism (HCC) 07/2013 during hospitalization for NE Vitamin D deficiency PAST SURGICAL HISTORY Procedure Laterality Date APPENDECTOMY BIVENTICULAR PACEMAKER INSERTION 09/05/2014 [employer] CABG (2) VEIN GRAFTS AND ARTERIAL GRAFT(S 07/22/2013 THURMAN to LAD and Dx CARPAL TUNNEL COLONOSCOPY 08/01/2011 5mm rectal polyp COLONOSCOPY 12/05/2015 rectal polyp (adenoma) and diverticulosis CYSTOSCOPY 09/21/2018 EGD 07/17/2011 sliding hiatal hernia EGD 11/19/2015 Dr. Lema- HEART CATHETERIZATION 01/29/2016 HEART CATHETERIZATION 07/21/2013 The patient was advised a cardiothoracic consultation for coronary artery bypass surgery. Mid and distal LAD has severe disease. This is not suitable for percutaneous intervention and it is a bifurcation lesion. 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 Thiago Verdugo REMV CATARACT EXTRACAP,INSERT LENS Left 04/16/2017 Dr. Das ROTATOR CUFF REPAIR Right TOTAL ABDOM HYSTERECTOMY 1983 VENA CAVA FILTER INSERTION 08/16/2013 FAMILY HISTORY Problem Relation Age of Onset Diabetes Mother Coronary Artery Disease Mother NE's Cancer Father Heart Sister NE's, valve replaced Stroke Sister Ovarian cancer Sister Multiple Sclerosis Sister Hypertension Sister Coronary Artery Disease Brother 2 brothers CABG Aneurysm Brother Calcium Disorder No Family History Parathyroid Disease No Family History Osteoporosis No Family History ALLERGIES Allergen Reactions Glatiramer Rash, Itching Social History Tobacco Use Smoking status: Former Current packs/day: 1.00 Average packs/day: 1 pack/day for 20.0 years (20.0 ttl pk-yrs) Types: Cigarettes Passive exposure: Past Smokeless tobacco: Never Tobacco comments: Quit around 1995 Vaping Use Vaping status: Never Used Substance Use Topics Alcohol use: Not Currently Comment: [facility] Zheng (more content not included)... Normal [facility] Extremity Upper W/WO Contras ton 06-16-2024 Extremity Upper W/WO Contrast [facility] Imaging Services [address] [place] [address] [id number] Extremity Upper W/WO Contrast MR#: [id number] Acct: [id number] Name: JENNI ALBRIGHT Rep #: [id number] : 1950 F 73 From: Mina Taylor PCP: Dr. Edmundo Cruz MD Status: REG CLI Study: Extremity Upper W/WO Contrast Date of Exam: Exam# [id number] Ordering Dr: Dylan Coronado DO PROCEDURE: EXTREMITY UPPER W/WO CONTRAST REASON FOR EXAM: Left upper extremity swelling, mass, and lump. Rule out lipoma. TECHNIQUE: CT of the left arm, without and with contrast COMPARISON: None provided. FINDINGS: [id number] left acromioclavicular joint degenerative changes are seen, with significant associated joint narrowing. Moderately severe left glenohumeral joint degenerative changes are seen, with associated severe joint narrowing. Mild degenerative changes are senior elbow joint. No elbow joint effusion is seen. Within the subcutaneous tissues lateral/posterior left arm, are seen extensive areas of dense calcification (axial images 17 through 45). A large amount of fluid is seen within the subacromial/subdeltoid bursa, extending to the proximal arm. No unexpected area of postcontrast enhancement is seen. No acute osseous process is evident. No Marni is clearly identified. CT/Extremity Upper W/WO Contrast IMPRESSION: 1. Large amount of fluid within the subacromial/subdeltoid bursa, extending to the proximal arm. 2. Prominent areas of calcification in the subcutaneous tissues of the left arm. 3. Degenerative changes as noted. One or more dose reduction techniques were used (e.g., Automated exposure control, adjustment of the mA and/or kV according to patient size, use of iterative reconstruction technique). Reading Location: [address] CC: Dr. Edmundo Cruz MD; Dr. Dylan Coronado DO Upper Trimmer: Signed [facility] 06-03-2024 [facility] Telephone (ENWSTR) -------- JENNI ALBRIGHT ([id number]) 1950 F Date Time Provider Department 06/03/24 NARCISA LOMELI During your visit today, we recorded the following information about you: Narcisa Lomeli MD 06/03/2024 12:58 PM Signed Please advise patient to start taking high dose Vit D3 weekly. Prescription sent to pharmacy Rosy Orosco RN 06/07/2024 10:36 AM Signed Call placed to Pt - name AND verified. Pt notified of below notation per Dr. Lomeli; she voices understanding. Rosy Orosco RN June 07, 2024 10:36 AM Allergies As of Date: 06/03/2024 Noted Allergy Reaction GLATIRAMER 07/20/2018 2 - Rash 9 - Itching Date Reviewed: 05/05/2024 Reviewed by: Dana Chou MA - Fully Assessed Reason for Visit: New Medication [Other] Primary Visit Diagnosis:Vitamin D deficiency [E55.9] Other Visit Diagnosis:Hypercalcemia [E83.52] Order(s):cholecalciferol , Vitamin D3, (VITAMIN D3) 1,250 mcg (50,000 unit) cap capsuleTake 1 capsule by mouth one time a week.Disp: 15 capsuleRfl: 0 Prescriptions as of 06/07/2024 - cholecalciferol, Vitamin D3, (VITAMIN D3) 1,250 mcg (50,000 unit) cap capsule Take 1 capsule by mouth one time a week. - apixaban (ELIQUIS) 5 mg tab(s) Take 1 tablet by mouth two times a day. - pravastatin (PRAVACHOL) 40 mg tablet Take 1 tablet by mouth daily at bedtime. - losartan (COZAAR) 50 mg tablet Take 1 tablet by mouth once daily. - spironolactone (ALDACTONE) 25 mg tablet Take 1 tablet by mouth once daily. - magnesium oxide (MAGOX) 400 mg (241.3 mg magnesium) tablet Take 1 tablet by mouth two times a day. - carvedilol (COREG) 25 mg tablet Take 0.5 tablets by mouth two times a day. - esomeprazole (NEXIUM) 40 mg capsule Take 1 capsule by mouth daily before breakfast. 1/2 hr before meal. - fenofibrate nanocrystallized (TRICOR) 145 mg tablet Take 1 tablet by mouth once daily. - DULoxetine (CYMBALTA) 60 mg capsule Take 60 mg by mouth two times a day. - VUMERITY 231 mg capsule, delayed release Take 462 mg by mouth two times a day. Dr. Baddour - dimethyl fumarate (TECFIDERA) [address] Take 1 capsule by mouth twice daily. - SYMBICORT 160-4.5 mcg/actuation inhaler Inhale 2 Puffs as instructed twice daily as needed. - gabapentin (NEURONTIN) 800 mg tablet Take 800 mg by mouth three times a day. - ALBUTEROL SULFATE HFA INHALATION Inhale 2 Puffs as instructed every 4 hours as needed. - baclofen (LIORESAL) 20 mg tablet Take by mouth three times daily as needed. 1 in am, 1in afternoon and 2 at bedtime - COMPOUNDED PRESCRIPTION One pair of shoes to fit over leg brace. Dx: G35; M79.2 - nitroglycerin sublingual (NITROQUICK) 0.4 mg SL tablet Dissolve 1 tablet under the tongue every 5 minutes as needed for Chest Pain. - multivitamin (MULTIPLE VITAMINS) tablet Take 1 tablet by mouth once daily. - aspirin, enteric coated (ASPIRIN, ENTERIC COATED) 81 mg EC tablet Take 81 mg by mouth once daily. - ferrous sulfate 325 mg (65 mg iron) tablet Take 325 mg by mouth daily with breakfast. Problem List As Of Date 06/03/2024 Noted Resolved Multiple sclerosis [G35] Neuropathic pain [M79.2] Hyperlipidemia [E78.5] GERD (gastroesophageal reflux disease) [K21.9] Vitamin D deficiency [E55.9] Back pain [M54.9] REBECCA (obstructive sleep apnea) [G47.33] Iron deficiency anemia [D50.9] History of rectal polypectomy [Z98.890, Z87.19] 07/13/2011 CAD (coronary artery disease) [I25.10] 07/12/2013 Pulmonary embolism (HCC) [I26.99] 07/12/2013 Essential hypertension [I10] 12/21/2014 Cardiac pacemaker [Z95.0] 09/14/2015 History of DVT (deep vein thrombosis) [Z86.718] 09/14/2015 Positive occult stool blood test [R19.5] 05/04/2018 Spastic hemiplegia, unspecified etiology, unspe*08/19/2022 Morbid obesity (HCC) [E66.01] 08/19/2022 Congestive heart failure, unspecified HF chroni*08/19/2022 PAF (paroxysmal atrial fibrillation) (HCC) [I48*08/19/2022 Abnormal result of other cardiovascular functio*11/22/2014 Diagnosed: 11/10/2022 Biventricular implantable cardioverter-defibril* Diagnosed: 11/10/2022 Calf pain [M79.669] 2021 Diagnosed: 11/10/2022 Cervico-occipital neuralgia [M54.81] 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 [facility] Telephone (FAMPWS) -------- JENNI ALBRIGHT ([id number]) 1950 F Date Time Provider Department 05/20/24 EDMUNDO CRUZ [facility] During your visit today, we recorded the following information about you: Kimi Galvin 05/20/2024 3:40 PM Signed Prescription Refill Information The patient has been identified by name and date of : Yes Caregiver verified no other encounters exist for this prescription request: Yes Caregiver confirmed with patient/requestor that no other refills are due, in the near future, with this provider at this time: Yes The last office visit in the department: 03-07-24 Does the patient have a future office visit with this provider/department: Yes apixaban (ELIQUIS) 5 mg tab(s) 180 tablet 3 04/14/2023 04/13/2024 Sig: Take 1 tablet by mouth two times a day. Sent to pharmacy as: apixaban (ELIQUIS) 5 mg tab(s) Class: Normal Route: ORAL Kimi Don Morin Pss May 20, 2024 3:39 PM Edmundo Cruz MD 05/20/2024 4:21 PM Signed OK to refill as ordered MD Cat Aldana Amanda, RN 05/20/2024 4:27 PM Signed Pt called and is notified of providers message. Pt voices understanding. Lacey Shelton RN Allergies As of Date: 05/20/2024 Noted Allergy Reaction GLATIRAMER 07/20/2018 2 - Rash 9 - Itching Date Reviewed: 05/05/2024 Reviewed by: Dana Chou MA - Fully Assessed Reason for Visit: Refill Request [94] Visit Diagnosis:History of DVT (deep vein thrombosis) [Z86.718] Order(s):apixaban (ELIQUIS) 5 mg tab(s)Take 1 tablet by mouth two times a day.Disp: 180 tabletRfl: 3 Prescriptions as of 05/20/2024 - apixaban (ELIQUIS) 5 mg tab(s) Take 1 tablet by mouth two times a day. - cholecalciferol, vitamin D3, (VITAMIN D3 ORAL) Take 1 tablet by mouth once every month. OTC - Pt unsure of dose - pravastatin (PRAVACHOL) 40 mg tablet Take 1 tablet by mouth daily at bedtime. - losartan (COZAAR) 50 mg tablet Take 1 tablet by mouth once daily. - spironolactone (ALDACTONE) 25 mg tablet Take 1 tablet by mouth once daily. - magnesium oxide (MAGOX) 400 mg (241.3 mg magnesium) tablet Take 1 tablet by mouth two times a day. - carvedilol (COREG) 25 mg tablet Take 0.5 tablets by mouth two times a day. - esomeprazole (NEXIUM) 40 mg capsule Take 1 capsule by mouth daily before breakfast. 1/2 hr before meal. - fenofibrate nanocrystallized (TRICOR) 145 mg tablet Take 1 tablet by mouth once daily. - DULoxetine (CYMBALTA) 60 mg capsule Take 60 mg by mouth two times a day. - VUMERITY 231 mg capsule, delayed release Take 462 mg by mouth two times a day. Dr. Clemente - dimethyl fumarate (TECFIDERA) [address] Take 1 capsule by mouth twice daily. - SYMBICORT 160-4.5 mcg/actuation inhaler Inhale 2 Puffs as instructed twice daily as needed. - gabapentin (NEURONTIN) 800 mg tablet Take 800 mg by mouth three times a day. - ALBUTEROL SULFATE HFA INHALATION Inhale 2 Puffs as instructed every 4 hours as needed. - baclofen (LIORESAL) 20 mg tablet Take by mouth three times daily as needed. 1 in am, 1in afternoon and 2 at bedtime - COMPOUNDED PRESCRIPTION One pair of shoes to fit over leg brace. Dx: G35; M79.2 - nitroglycerin sublingual (NITROQUICK) 0.4 mg SL tablet Dissolve 1 tablet under the tongue every 5 minutes as needed for Chest Pain. - multivitamin (MULTIPLE VITAMINS) tablet Take 1 tablet by mouth once daily. - aspirin, enteric coated (ASPIRIN, ENTERIC COATED) 81 mg EC tablet Take 81 mg by mouth once daily. - ferrous sulfate 325 mg (65 mg iron) tablet Take 325 mg by mouth daily with breakfast. Problem List As Of Date 05/20/2024 Noted Resolved Multiple sclerosis [G35] Neuropathic pain [M79.2] Hyperlipidemia [E78.5] GERD (gastroesophageal reflux disease) [K21.9] Vitamin D deficiency [E55.9] Back pain [M54.9] REBECCA (obstructive sleep apnea) [G47.33] Iron deficiency anemia [D50.9] History of rectal polypectomy [Z98.890, Z87.19] 07/13/2011 CAD (coronary artery disease) [I25.10] 07/12/2013 Pulmonary embolism (HCC) [I26.99] 07/12/2013 Essential hypertension [I10] 12/21/2014 Cardiac pacemaker [Z95.0] 09/14/2015 History of DVT (deep vein thrombosis) [Z86.718] 09/14/2015 Positive occult stool blood test [R19.5] 05/04/2018 Spastic hemiplegia, unspecified etiology, unspe*08/19/2022 Morbid obesity (HCC) [E66.01] 08/19/2022 Congestive heart failure, unspecified HF chroni*08/19/2022 PAF (paroxysmal atrial fibrillation) (HCC) [I48*08/19/2022 Abnormal result of other cardiovascular functio*11/22/2014 Diagnosed: 11/10/2022 Biventricular implantable cardioverter-defibril* Diagnosed: 11/10/2022 Calf pain [M79.669] 2021 Diagnosed: 11/10/2022 Cervico-occipital neuralgia [M54.81] 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 Normal [facility] CNPNon 05-06-2024 CNPN Telephone (CARMOB) -------- JENNI ALBRIGHT ([id number]) 1950 F Date Time Provider Department 05/06/24 JERRI DRAPER During your visit today, we recorded the following information about you: Lucy Hicks 05/06/2024 9:18 AM Signed I called to notify patient that her echo is scheduled at [facility] on 05/16/24 @ 1:00. She is to report to the 1st floor diagnostic center. Order was faxed to [phone]. Lucy Hicks Allergies As of Date: 05/06/2024 Noted Allergy Reaction GLATIRAMER 07/20/2018 2 - Rash 9 - Itching Date Reviewed: 05/05/2024 Reviewed by: Dana Chou MA - Fully Assessed Reason for Visit: Appointment [186] Prescriptions as of 05/06/2024 - cholecalciferol, vitamin D3, (VITAMIN D3 ORAL) Take 1 tablet by mouth once every month. OTC - Pt unsure of dose - pravastatin (PRAVACHOL) 40 mg tablet Take 1 tablet by mouth daily at bedtime. - losartan (COZAAR) 50 mg tablet Take 1 tablet by mouth once daily. - spironolactone (ALDACTONE) 25 mg tablet Take 1 tablet by mouth once daily. - magnesium oxide (MAGOX) 400 mg (241.3 mg magnesium) tablet Take 1 tablet by mouth two times a day. - carvedilol (COREG) 25 mg tablet Take 0.5 tablets by mouth two times a day. - esomeprazole (NEXIUM) 40 mg capsule Take 1 capsule by mouth daily before breakfast. 1/2 hr before meal. - fenofibrate nanocrystallized (TRICOR) 145 mg tablet Take 1 tablet by mouth once daily. - DULoxetine (CYMBALTA) 60 mg capsule Take 60 mg by mouth two times a day. - VUMERITY 231 mg capsule, delayed release Take 462 mg by mouth two times a day. Dr. Clemente - dimethyl fumarate (TECFIDERA) [address] Take 1 capsule by mouth twice daily. - SYMBICORT 160-4.5 mcg/actuation inhaler Inhale 2 Puffs as instructed twice daily as needed. - gabapentin (NEURONTIN) 800 mg tablet Take 800 mg by mouth three times a day. - ALBUTEROL SULFATE HFA INHALATION Inhale 2 Puffs as instructed every 4 hours as needed. - baclofen (LIORESAL) 20 mg tablet Take by mouth three times daily as needed. 1 in am, 1in afternoon and 2 at bedtime - COMPOUNDED PRESCRIPTION One pair of shoes to fit over leg brace. Dx: G35; M79.2 - nitroglycerin sublingual (NITROQUICK) 0.4 mg SL tablet Dissolve 1 tablet under the tongue every 5 minutes as needed for Chest Pain. - multivitamin (MULTIPLE VITAMINS) tablet Take 1 tablet by mouth once daily. - aspirin, enteric coated (ASPIRIN, ENTERIC COATED) 81 mg EC tablet Take 81 mg by mouth once daily. - ferrous sulfate 325 mg (65 mg iron) tablet Take 325 mg by mouth daily with breakfast. Problem List As Of Date 05/06/2024 Noted Resolved Multiple sclerosis [G35] Neuropathic pain [M79.2] Hyperlipidemia [E78.5] GERD (gastroesophageal reflux disease) [K21.9] Vitamin D deficiency [E55.9] Back pain [M54.9] REBECCA (obstructive sleep apnea) [G47.33] Iron deficiency anemia [D50.9] History of rectal polypectomy [Z98.890, Z87.19] 07/13/2011 CAD (coronary artery disease) [I25.10] 07/12/2013 Pulmonary embolism (HCC) [I26.99] 07/12/2013 Essential hypertension [I10] 12/21/2014 Cardiac pacemaker [Z95.0] 09/14/2015 History of DVT (deep vein thrombosis) [Z86.718] 09/14/2015 Positive occult stool blood test [R19.5] 05/04/2018 Spastic hemiplegia, unspecified etiology, unspe*08/19/2022 Morbid obesity (HCC) [E66.01] 08/19/2022 Congestive heart failure, unspecified HF chroni*08/19/2022 PAF (paroxysmal atrial fibrillation) (HCC) [I48*08/19/2022 Abnormal result of other cardiovascular functio*11/22/2014 Diagnosed: 11/10/2022 Biventricular implantable cardioverter-defibril* Diagnosed: 11/10/2022 Calf pain [M79.669] 2021 Diagnosed: 11/10/2022 Cervico-occipital neuralgia [M54.81] 06/17/2016 Diagnosed: 11/10/2022 correction current use of anticoagulant therapy *11/10/2022 Diagnosed: 11/10/2022 Delirium [R41.0] 11/10/2022 Diagnosed: 11/10/2022 Dysphagia [R13.10] 01/09/2022 Diagnosed: 11/10/2022 Dyspnea on exertion [R06.09] 12/19/2021 Diagnosed: 11/10/2022 Fatigue [R53.83] 11/10/2022 Diagnosed: 11/10/2022 Hereditary peripheral neuropathy [G60.9] 09/23/2015 Diagnosed: 11/10/2022 Idiopathic peripheral neuropathy [G60.9] 07/18/2014 Diagnosed: 11/10/2022 Irritable bowel syndrome [K58.9] 11/10/2022 Diagnosed: 11/10/2022 Neuralgia [M79.2] 12/06/2013 Diagnosed: 11/10/2022 Neurogenic bladder [N31.9] 11/10/2022 Diagnosed: 11/10/2022 Pain in both lower legs [M79.661, M79.662] 11/10/2022 Diagnosed: 11/10/2022 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 [facility] CNPN Telephone (CARMOB) -------- JENNI ALBRIGHT ([id number]) 1950 F Date Time Provider Department 05/06/24 JERRI DRAPER During your visit today, we recorded the following information about you: Lucy Hicks 05/06/2024 11:01 AM [facility] called back and rescheduled patients echo from 05/16/24 to 01/11/25 @ 10:00, The order stated to have this done closer to the end of the year. I did call patient to notify her of the change. She verbalized her understanding. Lucy Hicks Allergies As of Date: 05/06/2024 Noted Allergy Reaction GLATIRAMER 07/20/2018 2 - Rash 9 - Itching Date Reviewed: 05/05/2024 Reviewed by: Dana Chou MA - Fully Assessed Reason for Visit: Appointment [186] Prescriptions as of 05/06/2024 - cholecalciferol, vitamin D3, (VITAMIN D3 ORAL) Take 1 tablet by mouth once every month. OTC - Pt unsure of dose - pravastatin (PRAVACHOL) 40 mg tablet Take 1 tablet by mouth daily at bedtime. - losartan (COZAAR) 50 mg tablet Take 1 tablet by mouth once daily. - spironolactone (ALDACTONE) 25 mg tablet Take 1 tablet by mouth once daily. - magnesium oxide (MAGOX) 400 mg (241.3 mg magnesium) tablet Take 1 tablet by mouth two times a day. - carvedilol (COREG) 25 mg tablet Take 0.5 tablets by mouth two times a day. - esomeprazole (NEXIUM) 40 mg capsule Take 1 capsule by mouth daily before breakfast. 1/2 hr before meal. - fenofibrate nanocrystallized (TRICOR) 145 mg tablet Take 1 tablet by mouth once daily. - DULoxetine (CYMBALTA) 60 mg capsule Take 60 mg by mouth two times a day. - VUMERITY 231 mg capsule, delayed release Take 462 mg by mouth two times a day. Dr. Clemente - dimethyl fumarate (TECFIDERA) [address] Take 1 capsule by mouth twice daily. - SYMBICORT 160-4.5 mcg/actuation inhaler Inhale 2 Puffs as instructed twice daily as needed. - gabapentin (NEURONTIN) 800 mg tablet Take 800 mg by mouth three times a day. - ALBUTEROL SULFATE HFA INHALATION Inhale 2 Puffs as instructed every 4 hours as needed. - baclofen (LIORESAL) 20 mg tablet Take by mouth three times daily as needed. 1 in am, 1in afternoon and 2 at bedtime - COMPOUNDED PRESCRIPTION One pair of shoes to fit over leg brace. Dx: G35; M79.2 - nitroglycerin sublingual (NITROQUICK) 0.4 mg SL tablet Dissolve 1 tablet under the tongue every 5 minutes as needed for Chest Pain. - multivitamin (MULTIPLE VITAMINS) tablet Take 1 tablet by mouth once daily. - aspirin, enteric coated (ASPIRIN, ENTERIC COATED) 81 mg EC tablet Take 81 mg by mouth once daily. - ferrous sulfate 325 mg (65 mg iron) tablet Take 325 mg by mouth daily with breakfast. Problem List As Of Date 05/06/2024 Noted Resolved Multiple sclerosis [G35] Neuropathic pain [M79.2] Hyperlipidemia [E78.5] GERD (gastroesophageal reflux disease) [K21.9] Vitamin D deficiency [E55.9] Back pain [M54.9] REBECCA (obstructive sleep apnea) [G47.33] Iron deficiency anemia [D50.9] History of rectal polypectomy [Z98.890, Z87.19] 07/13/2011 CAD (coronary artery disease) [I25.10] 07/12/2013 Pulmonary embolism (HCC) [I26.99] 07/12/2013 Essential hypertension [I10] 12/21/2014 Cardiac pacemaker [Z95.0] 09/14/2015 History of DVT (deep vein thrombosis) [Z86.718] 09/14/2015 Positive occult stool blood test [R19.5] 05/04/2018 Spastic hemiplegia, unspecified etiology, unspe*08/19/2022 Morbid obesity (HCC) [E66.01] 08/19/2022 Congestive heart failure, unspecified HF chroni*08/19/2022 PAF (paroxysmal atrial fibrillation) (HCC) [I48*08/19/2022 Abnormal result of other cardiovascular functio*11/22/2014 Diagnosed: 11/10/2022 Biventricular implantable cardioverter-defibril* Diagnosed: 11/10/2022 Calf pain [M79.669] 2021 Diagnosed: 11/10/2022 Cervico-occipital neuralgia [M54.81] 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 *11/10/2022 Diagnosed: 11/10/2022 Delirium [R41.0] 11/10/2022 Diagnosed: 11/10/2022 Dysphagia [R13.10] 01/09/2022 Diagnosed: 11/10/2022 Dyspnea on exertion [R06.09] 12/19/2021 Diagnosed: 11/10/2022 Fatigue [R53.83] 11/10/2022 Diagnosed: 11/10/2022 Hereditary peripheral neuropathy [G60.9] 09/23/2015 Diagnosed: 11/10/2022 Idiopathic peripheral neuropathy [G60.9] 07/18/2014 Diagnosed: 11/10/2022 Irritable bowel syndrome [K58.9] 11/10/2022 Diagnosed: 11/10/2022 Neuralgia [M79.2] 12/06/2013 Diagnosed: 11/10/2022 Neurogenic bladder [N31.9] 11/10/2022 Diagnosed: 11/10/2022 Pain in both lower legs [M79.661, M79.662] 11/10/2022 Diagnosed: 11/10/2022 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 [facility] CNOVon 05-05-2024 CNOV Office Visit (CARMOB ) -------- JENNI ALBRIGHT ([id number]) 1950 F Date Time Provider Department 05/05/24 2:00 PM JERRI DRAPER During your visit today, we recorded the following information about you: Pulse Blood pressure Weight Height 85/minute 137/78 104.3 kg 1.575 m Jerri Draper MD 05/05/2024 2:44 PM [facility] [place] Samara Palma Department of Cardiovascular Medicine SECTION OF CARDIAC PACING and ELECTROPHYSIOLOGY OUTPATIENT VISIT DATE May 05, 2024 OUTPATIENT VISIT TYPE NEW PRIMARY CARE PHYSICIAN: Edmundo Cruz [address] [place] [address] REFERRING PHYSICIAN: Jerri Draper [address] [facility] [address] CHIEF COMPLAINT: FU pacemaker - battery change ; device check today shows still has 1 year. HISTORY OF PRESENT ILLNESS: Ms. Albright is a 73 year old female known to Dr De La Rosa with history of coronary artery disease s/p CABG 2013, pAF, NSVT and complete heart block s/p IMCU NURSE-P ([employer] by Dr Ayala) implantation in 2014. She is 100% BiV paced. Her device has reached AMMON and requires a generator replacement. On Apixaban. (Prior history of GI bleed on Rivaroxaban). Her other important medical history included multiple sclerosis. Her recent nuclear stress test was unremarkable. Been well. No shortness of breath or chest pain. No dizziness and no syncope. No issues with the pacemaker. No orthopnea, no PND Uses CPAP for REBECCA. No bleeding issues currently. Uses LWF, no falls. 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 11/19/2015 BBB (bundle branch block) CAD (coronary artery disease) 07/2013 non-STMI/CABG CHB (complete heart block) (HCC) Congestive heart failure (HCC) GERD (gastroesophageal reflux disease) hiatal hernia History of DVT (deep vein thrombosis) 09/14/2015 History of rectal polypectomy 07/2011 Hyperlipidemia Hypertension Iron deficiency anemia Multiple sclerosis (HCC) Neuropathic pain Legs>arms from MS REBECCA (obstructive sleep apnea) on CPAP Pacemaker Pulmonary embolism (HCC) 07/2013 during hospitalization for NE Vitamin D deficiency PAST SURGICAL HISTORY Procedure Laterality Date APPENDECTOMY BIVENTICULAR PACEMAKER INSERTION 09/05/2014 [employer] CABG (2) VEIN GRAFTS AND ARTERIAL GRAFT(S 07/22/2013 THURMAN to LAD and Dx CARPAL TUNNEL COLONOSCOPY 08/01/2011 5mm rectal polyp COLONOSCOPY 12/05/2015 rectal polyp (adenoma) and diverticulosis CYSTOSCOPY 09/21/2018 EGD 07/17/2011 sliding hiatal hernia EGD 11/19/2015 Dr. Lema- HEART CATHETERIZATION 01/29/2016 HEART CATHETERIZATION 07/21/2013 The patient was advised a cardiothoracic consultation for coronary artery bypass surgery. Mid and distal LAD has severe disease. This is not suitable for percutaneous intervention and it is a bifurcation lesion. 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 Thiago Verdugo REMV CATARACT EXTRACAP,INSERT LENS Left 04/16/2017 Dr. Das ROTATOR CUFF REPAIR Right TOTAL ABDOM HYSTERECTOMY 1982 VENA CAVA FILTER INSERTION 08/16/2013 SOCIAL HISTORY Social History Tobacco Use Smoking status: Former Current packs/day: 1.00 Average packs/day: 1 pack/day for 20.0 years (20.0 ttl pk-yrs) Types: Cigarettes Passive exposure: Past Smokeless tobacco: Never Tobacco comments: Quit around 1995 Vaping Use Vaping status: Never Used Substance Use Topics Alcohol use: Not Currently Comment: occ Drug use: Never FAMILY HISTORY Problem Relation Age of Onset Diabetes Mother Coronary Artery Disease Mother NE's Cancer Father Heart Sister NE's, valve replaced Stroke Sister Ovarian cancer Sister Multiple Sclerosis Sister Hypertension Sister Coronary Artery Disease Brother 2 brothers CABG Aneurysm Brother Calcium Disorder No Family History Parathyroid Disease No Family History Osteoporosis No Family History ALLERGIES: ALLERGIES Allergen Reactions Glatiramer Rash, Itching MEDICATIONS: cholecalciferol, vitamin D3, (VITAMIN D3 ORAL) Take 1 tablet by mouth once every month. OTC - Pt unsure of dose pravastatin (PRAVACHOL) 40 mg tablet Take 1 tablet by mouth daily at bedtime. losartan (COZAAR) 50 mg tablet Take 1 tablet by mouth once daily. spironolactone (ALDACTONE) 25 mg tablet Take 1 tablet by mouth once daily. magnesium oxide (MAGOX) 400 mg (241.3 mg magnesium) tablet Take 1 tablet by mouth two times a day. carvedilol (COREG) 25 mg tablet Take 0.5 tablets by mouth two times a day. esomeprazole (NEXIUM) 40 mg capsule Take 1 capsule by mouth daily before breakfast. 1/2 hr before meal. fenofibrate nanocrystallized (TRICOR) 145 mg tablet Take 1 tablet by mouth on (more content not included)... [facility] CNOV Office Visit (CARMOB ) -------- ALBRIGHTBIJANJENNI Don ([id number]) 1950 F Date Time Provider Department 05/05/24 2:00 PM [facility] DIANE FITZPATRICK During your visit today, we recorded the following information about you: Allergies As of Date: 05/05/2024 Noted Allergy Reaction GLATIRAMER 07/20/2018 2 - Rash 9 - Itching Date Reviewed: 05/05/2024 Reviewed by: Dana Chou MA - Fully Assessed Reason for Visit: Follow Up [171] Primary Visit Diagnosis:Congestive heart failure, unspecified HF chronicity, unspecified heart failure type (HCC) [I50.9] Prescriptions as of 06/22/2024 - carvedilol (COREG) 25 mg tablet Take 0.5 tablets by mouth two times a day. - cholecalciferol, Vitamin D3, (VITAMIN D3) 1,250 mcg (50,000 unit) cap capsule Take 1 capsule by mouth one time a week. - apixaban (ELIQUIS) 5 mg tab(s) Take 1 tablet by mouth two times a day. - pravastatin (PRAVACHOL) 40 mg tablet Take 1 tablet by mouth daily at bedtime. - losartan (COZAAR) 50 mg tablet Take 1 tablet by mouth once daily. - spironolactone (ALDACTONE) 25 mg tablet Take 1 tablet by mouth once daily. - magnesium oxide (MAGOX) 400 mg (241.3 mg magnesium) tablet Take 1 tablet by mouth two times a day. - esomeprazole (NEXIUM) 40 mg capsule Take 1 capsule by mouth daily before breakfast. 1/2 hr before meal. - fenofibrate nanocrystallized (TRICOR) 145 mg tablet Take 1 tablet by mouth once daily. - DULoxetine (CYMBALTA) 60 mg capsule Take 60 mg by mouth two times a day. - VUMERITY 231 mg capsule, delayed release Take 462 mg by mouth two times a day. Dr. Clemente - dimethyl fumarate (TECFIDERA) [address] Take 1 capsule by mouth twice daily. - SYMBICORT 160-4.5 mcg/actuation inhaler Inhale 2 Puffs as instructed twice daily as needed. - gabapentin (NEURONTIN) 800 mg tablet Take 800 mg by mouth three times a day. - ALBUTEROL SULFATE HFA INHALATION Inhale 2 Puffs as instructed every 4 hours as needed. - baclofen (LIORESAL) 20 mg tablet Take by mouth three times daily as needed. 1 in am, 1in afternoon and 2 at bedtime - COMPOUNDED PRESCRIPTION One pair of shoes to fit over leg brace. Dx: G35; M79.2 - nitroglycerin sublingual (NITROQUICK) 0.4 mg SL tablet Dissolve 1 tablet under the tongue every 5 minutes as needed for Chest Pain. - multivitamin (MULTIPLE VITAMINS) tablet Take 1 tablet by mouth once daily. - aspirin, enteric coated (ASPIRIN, ENTERIC COATED) 81 mg EC tablet Take 81 mg by mouth once daily. - ferrous sulfate 325 mg (65 mg iron) tablet Take 325 mg by mouth daily with breakfast. Problem List As Of Date 05/05/2024 Noted Resolved Multiple sclerosis [G35] Neuropathic pain [M79.2] Hyperlipidemia [E78.5] GERD (gastroesophageal reflux disease) [K21.9] Vitamin D deficiency [E55.9] Back pain [M54.9] REBECCA (obstructive sleep apnea) [G47.33] Iron deficiency anemia [D50.9] History of rectal polypectomy [Z98.890, Z87.19] 07/13/2011 CAD (coronary artery disease) [I25.10] 07/12/2013 Pulmonary embolism (HCC) [I26.99] 07/12/2013 Essential hypertension [I10] 12/21/2014 Cardiac pacemaker [Z95.0] 09/14/2015 History of DVT (deep vein thrombosis) [Z86.718] 09/14/2015 Positive occult stool blood test [R19.5] 05/04/2018 Spastic hemiplegia, unspecified etiology, unspe*08/19/2022 Morbid obesity (HCC) [E66.01] 08/19/2022 Congestive heart failure, unspecified HF chroni*08/19/2022 PAF (paroxysmal atrial fibrillation) (HCC) [I48*08/19/2022 Abnormal result of other cardiovascular functio*11/22/2014 Diagnosed: 11/10/2022 Biventricular implantable cardioverter-defibril* Diagnosed: 11/10/2022 Calf pain [M79.669] 2021 Diagnosed: 11/10/2022 Cervico-occipital neuralgia [M54.81] 06/17/2016 Diagnosed: 11/10/2022 correction current use of anticoagulant therapy *11/10/2022 Diagnosed: 11/10/2022 Delirium [R41.0] 11/10/2022 Diagnosed: 11/10/2022 Dysphagia [R13.10] 01/09/2022 Diagnosed: 11/10/2022 Dyspnea on exertion [R06.09] 12/19/2021 Diagnosed: 11/10/2022 Fatigue [R53.83] 11/10/2022 Diagnosed: 11/10/2022 Hereditary peripheral neuropathy [G60.9] 09/23/2015 Diagnosed: 11/10/2022 Idiopathic peripheral neuropathy [G60.9] 07/18/2014 Diagnosed: 11/10/2022 Irritable bowel syndrome [K58.9] 11/10/2022 Diagnosed: 11/10/2022 Neuralgia [M79.2] 12/06/2013 Diagnosed: 11/10/2022 Neurogenic bladder [N31.9] 11/10/2022 Diagnosed: 11/10/2022 Pain in both lower legs [M79.661, M79.662] 11/10/2022 Diagnosed: 11/10/2022 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 Normal [facility] 25(OH)D3 [facility] 2023 25-hydroxyvitamin D3 [Mass/Vol] 12.7 ng/mL Low 31.0-80.0 [facility] Comment on above: Order Comment: Speci men Type: BLOOD SPECIMENOrdering Facility: [facility] Address: [address] [place], [place] [address] [id number] Performed By: #### 1 989-3 ####[facility] LABCLIA [id number] [facility] [id number] [id number] [place] 25-hydroxyvitamin D3 [Mass/V ol]on 03-28-2024 Interpretation and review of laboratory results Abnormal [facility] ALBUMINon 03-28-2024 Albumin [Mass/Vol] 4.3 g/dL 3.9 - 4.9 g/dL [facility] Albumin SerPl-mCncon 024 Albumin [Mass/Vol] 4.3 g/dL Normal 3.9-4.9 [facility] Comment on above: Order Comment: Speci men Type: BLOOD SPECIMENOrdering Facility: [facility] Address: [address] [place], [place] [address] [address] Performed By: #### 1 9123-9, 2777-1, 22076-9, 1751-7 ####[facility] LUCINA MILLTOWNCLIA [id number] [place] [address] [place] CALCIUM, TOTALon 03-28-2024 Calcium [Mass/Vol] 11.4 mg/dL High 8.5 - 10. 2 mg/dL [facility] CNOVon 03-28-2024 CNOV Office Visit (ENWSTR ) -------- JENNI ALBRIGHT ([id number]) 1950 F Date Time Provider Department 03/28/24 8:00 AM NARCISA LOMELI ENHIGINIO During your visit today, we recorded the following information about you: Pulse Respiration Blood pressure Weight 73/minute 20/minute 124/82 102.5 kg Height 1.575 m Narcisa Lomeli MD 03/28/2024 11:21 AM Addendum Endocrinology and Met[facility] [place] [facility] Visit Note NAME: Jenni Albright is a 73 year old old female PCP: Edmundo Cruz MD Requesting Provider: Deion Russell APRN. CHILDB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 [address] [facility] [address] My final recommendations will be communicated back to the requesting provider by way of shared medical record or letter via [place] mail. Chief Complaint: Hypercalcemia, elevated PTH History of Present Illness: Jenni Albright is a 73 year old old female presenting with hypercalcemia. She is accompanied by her She has had high calcium for over 3 years, but reports she was not aware of this Has a hx of MS Personal history of kidney stones: no Personal history of fractures: None Family history of osteoporosis: no Height loss: unknown Weight <127 lbs: No Prior radiation to the neck: no Personal history of thyroid disease: no Family history of calcium issues, thyroid or parathyroid disease: no Calcium Intake: Patient eats ~1 serving of calcium/day- 1 yogurt cup every morning, denied any other calcium foods Patient takes multivitamins, but no separate calcium supplements or tums Vitamin D Intake: Patient takes VitD supplements- 1 tablet every month as per medication list- however she could not tell me the dose of this medication No recent or prolonged steroid use Smoking: Ex-smoker- remote hx Alcohol: occasionally Exercise: no regular exercise program History of falls: reports her legs give out sometimes due to MS, and has falls occasionally Menopause at age: 40s, she had partial hysterectomy due to large tumor on the uterus, surgical pathology was benign HRT: No No hx of cancer or radiation therapy Denied any steroid use, use of lithium or HCTZ in the past Has constipation for several years, and this is baseline for her Denied any symptoms at this time include anorexia, N/V, polyuria, polydipsia, blood in urine, bone pains PAST MEDICAL HISTORY Diagnosis Date Back pain [...] Pulmonary embolism (HCC) 07/2013 during hospitalization for [place] Vitamin D deficiency PAST SURGICAL HISTORY Procedure Laterality Date CABG, ARTERIAL, TWO 07/22/13 THURMAN to LAD and Dx CARPAL TUNNEL CATARACT EXTRACTION HX Right 03/23/2017 Dr. Das - [place] CATARACT EXTRACTION HX Left 04/16/2017 Dr. Das COLONOSCOPY 08/01/2011 5mm rectal polyp COLONOSCOPY 12/05/2015 rectal polyp (adenoma) and diverticulosis EGD 07/17/2011 sliding hiatal hernia ENDOSCOPY PROC 11/19/15 Dr. Lema- HEART CATHETERIZATION ? HYSTERECTOMY HX 1982 PACEMAKER ROTATOR CUFF REPAIR right FAMILY HISTORY Problem Relation Age of Onset Diabetes Mother Coronary Artery Disease Mother NE's Cancer Father Heart Sister NE's, valve replaced Stroke Sister Ovarian cancer Sister Multiple Sclerosis Sister Hypertension Sister Coronary Artery Disease Brother 2 brothers CABG Aneurysm Brother Calcium Disorder No Family History Parathyroid Disease No Family History Osteoporosis No Family History ALLERGIES Allergen Reactions Glatiramer Rash, Itching Social History Tobacco Use Smoking status: Former Current packs/day: 1.00 Average packs/day: 1 pack/day for 20.0 years (20.0 ttl pk-yrs) Types: Cigarettes Passive exposure: Past Smokeless tobacco: Never Tobacco comments: Quit around 1995 Vaping Use Vaping status: Never Used Substance Use Topics Alcohol use: Yes Comment: occ Drug use: Never Current Outpatient Medications Medication Sig predniSONE (DELTASONE) 10 mg tablet Take 10 mg by mouth once daily. pravastatin (PRAVACHOL) 40 mg tablet Take 1 tablet by mouth daily at bedtime. losartan (COZAAR) 50 mg tablet Take 1 tablet by mouth once daily. spironolactone (ALDACTONE) 25 mg tablet Take 1 tablet by mouth once daily. magnesium oxide (MAGOX) 400 mg (241.3 mg magnesium) tablet Take 1 tablet by mouth two times a day. apixaban (ELIQUIS) 5 mg tab(s) Take 1 tablet by mouth two times a day. carvedilol (COREG) 25 mg tablet Take 0.5 tablets by mouth two times a day. esomepr (more content not included)... Normal [facility] Donna 03-28-2024 [facility] Telephone (ENWSTR) -------- JENNI ALBRIGHT ([id number]) 1950 F Date Time Provider Department 03/28/24 BARBARACARLOS NARCISAJAMIE LAI During your visit today, we recorded the following information about you: Cristine Felipe LPN 03/28/2024 3:02 PM Signed Rebecca Wagner calling from Lab services. Patient Normalized Calcium 1.55 Calcium Ionized 1.56 Cristine Felipe LPN Allergies As of Date: 03/28/2024 Noted Allergy Reaction GLATIRAMER 07/20/2018 2 - Rash 9 - Itching Date Reviewed: 03/28/2024 Reviewed by: Rosy Orosco, RN - Fully Assessed Reason for Visit: Results [95] Cmt: Urgent Values Prescriptions as of 04/01/2024 - cholecalciferol, vitamin D3, (VITAMIN D3 ORAL) Take 1 tablet by mouth once every month. OTC - Pt unsure of dose - pravastatin (PRAVACHOL) 40 mg tablet Take 1 tablet by mouth daily at bedtime. - losartan (COZAAR) 50 mg tablet Take 1 tablet by mouth once daily. - spironolactone (ALDACTONE) 25 mg tablet Take 1 tablet by mouth once daily. - magnesium oxide (MAGOX) 400 mg (241.3 mg magnesium) tablet Take 1 tablet by mouth two times a day. - apixaban (ELIQUIS) 5 mg tab(s) Take 1 tablet by mouth two times a day. - carvedilol (COREG) 25 mg tablet Take 0.5 tablets by mouth two times a day. - esomeprazole (NEXIUM) 40 mg capsule Take 1 capsule by mouth daily before breakfast. 1/2 hr before meal. - fenofibrate nanocrystallized (TRICOR) 145 mg tablet Take 1 tablet by mouth once daily. - DULoxetine (CYMBALTA) 30 mg capsule take 1 capsule by mouth every day in the evening - DULoxetine (CYMBALTA) 60 mg capsule Take 60 mg by mouth two times a day. - VUMERITY 231 mg capsule, delayed release Take 231 mg by mouth two times a day. Dr. Clemente - dimethyl fumarate (TECFIDERA) [address] Take 1 capsule by mouth twice daily. - SYMBICORT 160-4.5 mcg/actuation inhaler Inhale 2 Puffs as instructed twice daily as needed. - gabapentin (NEURONTIN) 800 mg tablet Take 800 mg by mouth three times a day. - ALBUTEROL SULFATE HFA INHALATION Inhale 2 Puffs as instructed every 4 hours as needed. - baclofen (LIORESAL) 20 mg tablet Take by mouth three times daily as needed. 1 in am, 1in afternoon and 2 at bedtime - COMPOUNDED PRESCRIPTION One pair of shoes to fit over leg brace. Dx: G35; M79.2 - nitroglycerin sublingual (NITROQUICK) 0.4 mg SL tablet Dissolve 1 tablet under the tongue every 5 minutes as needed for Chest Pain. - multivitamin (MULTIPLE VITAMINS) tablet Take 1 tablet by mouth once daily. - aspirin, enteric coated (ASPIRIN, ENTERIC COATED) 81 mg EC tablet Take 81 mg by mouth once daily. - ferrous sulfate 325 mg (65 mg iron) tablet Take 325 mg by mouth daily with breakfast. Problem List As Of Date 03/28/2024 Noted Resolved Multiple sclerosis [G35] Neuropathic pain [M79.2] Hyperlipidemia [E78.5] GERD (gastroesophageal reflux disease) [K21.9] Vitamin D deficiency [E55.9] Back pain [M54.9] REBECCA (obstructive sleep apnea) [G47.33] Iron deficiency anemia [D50.9] History of rectal polypectomy [Z98.890, Z87.19] 07/13/2011 CAD (coronary artery disease) [I25.10] 07/12/2013 Pulmonary embolism (HCC) [I26.99] 07/12/2013 Essential hypertension [I10] 12/21/2014 Cardiac pacemaker [Z95.0] 09/14/2015 History of DVT (deep vein thrombosis) [Z86.718] 09/14/2015 Positive occult stool blood test [R19.5] 05/04/2018 Spastic hemiplegia, unspecified etiology, unspe*08/19/2022 Morbid obesity (HCC) [E66.01] 08/19/2022 Congestive heart failure, unspecified HF chroni*08/19/2022 PAF (paroxysmal atrial fibrillation) (HCC) [I48*08/19/2022 Abnormal result of other cardiovascular functio*11/22/2014 Diagnosed: 11/10/2022 Biventricular implantable cardioverter-defibril* Diagnosed: 11/10/2022 Calf pain [M79.669] 2021 Diagnosed: 11/10/2022 Cervico-occipital neuralgia [M54.81] 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 *11/10/2022 Diagnosed: 11/10/2022 Delirium [R41.0] 11/10/2022 Diagnosed: 11/10/2022 Dysphagia [R13.10] 01/09/2022 Diagnosed: 11/10/2022 Dyspnea on exertion [R06.09] 12/19/2021 Diagnosed: 11/10/2022 Fatigue [R53.83] 11/10/2022 Diagnosed: 11/10/2022 Hereditary peripheral neuropathy [G60.9] 09/23/2015 Diagnosed: 11/10/2022 Idiopathic peripheral neuropathy [G60.9] 07/18/2014 Diagnosed: 11/10/2022 Irritable bowel syndrome [K58.9] 11/10/2022 Diagnosed: 11/10/2022 Neuralgia [M79.2] 12/06/2013 Diagnosed: 11/10/2022 Neurogenic bladder [N31.9] 11/10/2022 Diagnosed: 11/10/2022 Pain in both lower legs [M79.661, M79.662] 11/10/2022 Diagnosed: 11/10/2022 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 Normal [facility] Calcium [facility] 12-16-2 024 Calcium [Mass/Vol] 11.4 mg/dL High 8.5-10.2 [facility] Comment on above: Order Comment: Speci men Type: BLOOD SPECIMENOrdering Facility: [facility] Address: [address] [place] [address] Performed By: #### 1 9123-9, 2777-1, 98956-5, 1751-7 ####[facility] [id number] [place] [address] [place] Calcium [Mass/Vol]on 024 Interpretation and review of laboratory results Abnormal [facility] Calcium.ionized [Moles/Vol]o n 03-28-2024 Calcium.ionized (Bld) [Mass/Vol] 1.56 mmol/L High 1.08 - 1.30 mmol/L [facility] Calcium.ionized adjusted to pH 7.4 (Bld) [Moles/Vol] 1.55 mmol/L High 1.08 - 1.30 mmol/L [facility] Interpretation and review of laboratory results Abnormal [facility] Calcium.ionized (Bld) [Mass/Vol] 1.56 mmol/L High 1.08-1.30 [facility] Comment on above: Order Comment: Speci men Type: URINE SPECIMEN Ordering Facility: [facility] Address: [address] [place], [place] [address] Performed By: #### 2 956-1 #### [facility] CLIA [id number] [address] [place] [address] [place] [facility] CLIA [id number] [address] [place] [address] [place] Calcium.ionized adjusted to pH 7.4 (Bld) [Moles/Vol] 1.55 mmol/L High 1.08-1.30 [facility] Comment on above: Order Comment: Speci men Type: URINE SPECIMEN Ordering Facility: [facility] Address: [address] [place], [place] [address] Performed By: #### 2 956-1 #### [facility] CLIA [id number] [address] [place] [id number] [place] [facility] CLIA [id number] [address] [place] MAGNESIUMOrdered By: Shelly Rivera on 03-28-2024 Magnesium [Mass/Vol] 2.3 mg/dL 1.7 - 2 .3 mg/dL [facility] Magnesium SerPl-mCncon 03-28 Magnesium [Mass/Vol] 2.3 mg/dL Normal 1.7-2.3 [facility] Comment on above: Order Comment: Speci men Type: BLOOD SPECIMENOrdering Facility: [facility] Address: [address] [place] [address] Performed By: #### 1 9123-9, 2777-1, 79850-9, 1751-7 ####[facility] [id number] [address] [place] No Panel InformationOrdered By: Brittaney Rivera on 03-28-2024 Interpretation and review of laboratory results Normal [facility] PHOSPHORUS INORGANICon 03-28 Phosphate [Mass/Vol] 2.7 mg/dL 2.7 - 4 .8 mg/dL [facility] PROTEIN ELECTROPHORESIS SERU M (P)on 03-28-2024 Albumin [Mass/Vol] 3.95 g/dL Normal 3.43-5.41 [facility] Comment on above: Order Comment: Speci men Type: BLOOD SPECIMENOrdering Facility: [facility] Address: [address] [place] [address] Performed By: #### L [id number] ####[facility] LABCLIA [id number] [place] [address] [place] Alpha 1 globulin Elph [Mass/Vol] 0.25 g/dL Normal 0.18-0.43 [facility] Comment on above: Order Comment: Speci men Type: BLOOD SPECIMENOrdering Facility: [facility] [facility] Address: [address] [place] [address] Performed By: #### L [id number] ####[facility] LABIA [id number] [place] [address] [place] Alpha 2 globulin Elph [Mass/Vol] 0.75 g/dL Normal 0.42-0.98 [facility] Comment on above: Order Comment: Speci men Type: BLOOD SPECIMENOrdering Facility: [facility] Address: [address] [place] [address] Performed By: #### L [id number] ####[facility] LABIA [id number] [place] [address] [place] Beta globulin Elph [Mass/Vol] 0.75 g/dL Normal 0.61-1.17 [facility] Comment on above: Order Comment: Speci men Type: BLOOD SPECIMENOrdering Facility: [facility] Address: [address] [place] [address] Performed By: #### L [id number] ####[facility] LABIA [id number] [place] [address] [place] Gamma globulin Elph [Mass/Vol] 0.69 g/dL Normal 0.53-1.51 [facility] Comment on above: Order Comment: Speci men Type: BLOOD SPECIMENOrdering Facility: [facility] Address: [address] [place] [address] Performed By: #### L [id number] ####[facility] [id number] [address] [place] M-PROTEIN LOCATION Normal [facility] Comment on above: Order Comment: Speci men Type: BLOOD SPECIMENOrdering Facility: [facility] Address: [address] [place] [address] Result Comment: Not Applicable. Performed By: #### L [id number] ####[facility] LABIA [id number] [place] [address] [place] Protein Fractions [Interp] No definitive M protein is identified on protein electrophoresis. Normal No definitive M protein is identified on protein electrophore sis. [facility] Comment on above: Order Comment: Speci men Type: BLOOD SPECIMENOrdering Facility: [facility] Address: [address] [place] [address] Performed By: #### L [id number] ####[facility] LABIA [id number] [place] [address] [place] Protein.monoclonal Elph [Mass/Vol] 0.00 g/dL Normal <=0.00 [facility] Comment on above: Order Comment: Speci men Type: BLOOD SPECIMENOrdering Facility: [facility] Address: [address] [place] [address] Performed By: #### L [id number] ####[facility] [id number] [place] [address] [place] SPE STAFF REVIEW Reviewed by Tiffani Michele M.D., Ph.D [facility] Comment on above: Order Comment: Speci men Type: BLOOD SPECIMENOrdering Facility: [facility] Address: [address] [place] [address] Performed By: #### L [id number] ####[facility] LABIA [id number] [place] [address] [place] PTH INTACTon 03-28-2024 Parathyrin.intact [Mass/Vol] 90 pg/mL High 15 - 65 pg/mL [facility] PTH-Intact SerPl-mCncon 12- Parathyrin.intact [Mass/Vol] 90 pg/mL High 15-65 [facility] Comment on above: Order Comment: Speci men Type: BLOOD SPECIMENOrdering Facility: [facility] Address: [address] [place] [address] Performed By: #### 2 731-8, 2885-2, 3016-3 ####[facility] LABCLIA [id number] [id number] [address] [place] Parathyrin.intact [Mass/Vol] on 03-28-2024 Interpretation and review of laboratory results Abnormal [facility] Phosphate SerPl-mCncon 03-28 Phosphate [Mass/Vol] 2.7 mg/dL Normal 2.7-4.8 [facility] Comment on above: Order Comment: Speci men Type: BLOOD SPECIMENOrdering Facility: [facility] Address: [address] [place] [address] Performed By: #### 1 9123-9, 2777-1, 99952-4, 1751-7 ####[facility] [id number] [place] [address] [place] Prot SerPl-mCncon 03-28-2024 Protein [Mass/Vol] 6.4 g/dL Normal 6.3-8.0 [facility] Comment on above: Order Comment: Speci men Type: BLOOD SPECIMENOrdering Facility: [facility] Address: [address] [place] [address] Performed By: #### 2 731-8, 3285-2, 3016-3 ####[facility] LABCLIA [id number] [place] [id number] [place] THYROID STIMULATING HORMONEo n 03-28-2024 TSH Qn 2.970 m[IU]/L [facility] TSH Qnon 03-28-2024 Interpretation and review of laboratory results Normal [facility] TSH SerPl-aCncon 03-28-2024 TSH Qn 2.970 m[IU]/L Normal 0.270-4.200 [facility] Comment on above: Order Comment: Speci men Type: BLOOD SPECIMENOrdering Facility: [facility] Address: [address] [place], [place] [address] Performed By: #### 2 731-8, 5825-2, 3016-3 ####[facility] LABCLIA [id number] [place] [address] [place] VITAMIN D 25 HYDROXYon 03-28 25-hydroxyvitamin D3 [Mass/Vol] 12.7 ng/mL Low 31.0 - 80.0 ng/mL [facility] Neurology Visit Reporton Neurology Visit Report [facility] [address], [address] [place] [address] OFFICE VISIT Date of Service: 03/17/24 MR#: [id number] Acct: [id number] Name: JENNI ALBRIGHT Rep #: [id number] : 1950 Provider: Dr. García heaton MD Age/Sex: 73/F Location: [facility] Status: Signed HPI HPI Chief Complaint: Neurology FU Details: Interim History: Jenni returns for follow-up. She has a history of hypertension, obstructive sleep apnea, coronary artery disease/[place], cardiac bradyarrhythmia status post pacemaker placement, hyperlipidemia, neurogenic bladder (she has an implanted bladder stimulator), and multiple sclerosis. She had migraine headaches in years past; these resolved around 2000. Her symptoms of multiple sclerosis began in 1968, when she developed gait imbalance and right leg numbness. She had multiple falls. She was diagnosed with multiple sclerosis at that time. She reported that a lumbar puncture performed years later revealed findings consistent with multiple sclerosis (official report is presently not available). Over the years, she has had exacerbations of her multiple sclerosis manifesting with weakness that, at various times, has affected the upper and lower extremities. She has also had episodes of numbness affecting the arms, legs, torso and face. In 2021, she developed worsening of dysphagia and had a speech therapy evaluation including a modified barium swallow; small bites, easy to chew food and small sips by straw only were recommended. She had another exacerbation of her multiple sclerosis in January 2022 that manifested with left-sided weakness affecting the face, arm and leg; she required assistance to arise from bed; she was treated with a 3-day course of IV methylprednisolone followed by a 6-day prednisone taper beginning at 60 mg daily and had improvement of her left-sided motor symptoms and returned to her baseline. In 2022, she had increased neuropathic pain in the feet that she described as a needle sensation. In November 2020, she had an exacerbation of her multiple sclerosis that manifested with more diffuse pain of burning character (affecting her entire body), dysphagia, tremulousness, easy irritability, and bilateral lower extremity weakness. She has neuropathic pain in the lower extremities (extending from the hip to the foot in the right leg and from the knee to the foot and the left leg). Gabapentin 800 mg 3 times daily and duloxetine duloxetine (60 mg every morning and 30 mg every late afternoon; a bedtime dose caused insomnia) have been of benefit for her neuropathic pain, however her nighttime lower extremity neuropathic pain has increased recently. She had modest improvement of her symptoms following a 3-day course of IV Solu-Medrol followed by a 6-day prednisone taper in December 2020, however her lower extremity weakness remained prominent. A course of Acthar in February 2021 was not of benefit. Her last exacerbation of multiple sclerosis prior to November 2020 occurred in March 2020 and manifested with increased numbness. Over the years, she has been treated with courses of IV methylprednisolone as well as oral corticosteroid and these have been of benefit for exacerbations. She had received IV methylprednisolone about once per year within recent years. She is tolerating Vumerity well. I inadvertently reduced her dose of Vumerity to 231 mg twice daily at the time of her last visit earlier in 2023. Her exacerbations of multiple sclerosis have generally lasted up to 2 weeks and, overall, she had progression in the degree of her disability. She feels that her legs have become weaker over recent months. At her baseline, she has pronounced bilateral lower extremity weakness. She wears a right AFO. She is able to ambulate with the use of a walker. She had an exacerbation of her multiple sclerosis in December 2023 manifesting with numbness affecting the left arm, left leg, left abdominal region and left side of the face; she was treated with a 3-day course of IV methylprednisolone followed by 2 courses of prednisone tapers (she had a suboptimal response to corticosteroid therapy following her first prednisone taper) and had improvement of her symptoms. She has chronic low back pain. Baclofen is of benefit for her muscle spasms in the arms and legs. Prior physical therapy was not of benefit for her low back pain. She has chronic fatigue. A B12 injection and amantadine were not of benefit for her fatigue. She has had memory difficulty that worsened in 2020. She has a history of vitamin D deficiency and took vitamin D 5000 units daily for a period of time. Her last vitamin D level (07/2020) was mildly elevated and high-dose vitamin D supplementation was discontinued (she received some vitamin D in a daily multivitamin she takes). Her last vitamin D level in April 2023 was near the low end of the normal range. In years pas (more content not included)... Normal [facility] CNNURSEon 03-14-2024 [facility] Nurse Visit (CAWSTR) -------- JENNI ALBRIGHT ([id number]) 1950 F Date Time Provider Department 03/14/24 9:45 AM NURSE CARD ADMIN [facility] WSTR CAWSTR During your visit today, we recorded the following information about you: Referring Provider: DA DE LA ROSA [[id number]] Allergies As of Date: 03/14/2024 Noted Allergy Reaction GLATIRAMER 07/20/2018 9 - Itching 2 - Rash Date Reviewed: 03/07/2024 Reviewed by: Kimi Gaxiola LPN - Fully Assessed Visit Diagnoses:Routine check-up [Z00.00] Coronary artery disease involving [place] coronary artery of [place] heart without angina pectoris [I25.10] Essential hypertension [I10] Pacemaker [Z95.0] Paroxysmal atrial fibrillation (HCC) [I48.0] Nonsustained ventricular tachycardia (HCC) [I47.29] Order(s):[] regadenoson 0.4 mg injection (LEXISCAN)Disp: Rfl: Prescriptions as of 03/14/2024 - pravastatin (PRAVACHOL) 40 mg tablet Take 1 tablet by mouth daily at bedtime. - losartan (COZAAR) 50 mg tablet Take 1 tablet by mouth once daily. - spironolactone (ALDACTONE) 25 mg tablet Take 1 tablet by mouth once daily. - magnesium oxide (MAGOX) 400 mg (241.3 mg magnesium) tablet Take 1 tablet by mouth two times a day. - apixaban (ELIQUIS) 5 mg tab(s) Take 1 tablet by mouth two times a day. - carvedilol (COREG) 25 mg tablet Take 0.5 tablets by mouth two times a day. - esomeprazole (NEXIUM) 40 mg capsule Take 1 capsule by mouth daily before breakfast. 1/2 hr before meal. - fenofibrate nanocrystallized (TRICOR) 145 mg tablet Take 1 tablet by mouth once daily. - DULoxetine (CYMBALTA) 30 mg capsule take 1 capsule by mouth every day in the evening - DULoxetine (CYMBALTA) 60 mg capsule - VUMERITY 231 mg capsule, delayed release Twice daily-Dr. Clemente - dimethyl fumarate (TECFIDERA) [address] Take 1 capsule by mouth twice daily. - SYMBICORT 160-4.5 mcg/actuation inhaler Inhale 2 Puffs as instructed twice daily as needed. - gabapentin (NEURONTIN) 800 mg tablet Take 1 tablet by mouth four times daily. - ALBUTEROL SULFATE HFA INHALATION Inhale as instructed. - baclofen (LIORESAL) 20 mg tablet Take by mouth three times daily as needed. 1 in am, 1in afternoon and 2 at bedtime - COMPOUNDED PRESCRIPTION One pair of shoes to fit over leg brace. Dx: G35; M79.2 - nitroglycerin sublingual (NITROQUICK) 0.4 mg SL tablet Dissolve 1 tablet under the tongue every 5 minutes as needed for Chest Pain. - multivitamin (MULTIPLE VITAMINS) tablet Take 1 tablet by mouth once daily. - aspirin, enteric coated (ASPIRIN, ENTERIC COATED) 81 mg EC tablet Take 81 mg by mouth once daily. - ferrous sulfate 325 mg (65 mg iron) tablet Take 325 mg by mouth daily with breakfast. Meds Comments as of 02/08/2021: OTC Cranberry and Vitamin C. Problem List As Of Date 03/14/2024 Noted Resolved Multiple sclerosis [G35] Neuropathic pain [M79.2] Hyperlipidemia [E78.5] GERD (gastroesophageal reflux disease) [K21.9] Vitamin D deficiency [E55.9] Back pain [M54.9] REBECCA (obstructive sleep apnea) [G47.33] Iron deficiency anemia [D50.9] History of rectal polypectomy [Z98.890, Z87.19] 07/13/2011 CAD (coronary artery disease) [I25.10] 07/12/2013 Pulmonary embolism (HCC) [I26.99] 07/12/2013 Essential hypertension [I10] 12/21/2014 Cardiac pacemaker [Z95.0] 09/14/2015 History of DVT (deep vein thrombosis) [Z86.718] 09/14/2015 Positive occult stool blood test [R19.5] 05/04/2018 Spastic hemiplegia, unspecified etiology, unspe*08/19/2022 Morbid obesity (HCC) [E66.01] 08/19/2022 Congestive heart failure, unspecified HF chroni*08/19/2022 PAF (paroxysmal atrial fibrillation) (HCC) [I48*08/19/2022 Abnormal result of other cardiovascular functio*11/22/2014 Diagnosed: 11/10/2022 Biventricular implantable cardioverter-defibril* Diagnosed: 11/10/2022 Calf pain [M79.669] 2021 Diagnosed: 11/10/2022 Cervico-occipital neuralgia [M54.81] 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 *11/10/2022 Diagnosed: 11/10/2022 Delirium [R41.0] 11/10/2022 Diagnosed: 11/10/2022 Dysphagia [R13.10] 01/09/2022 Diagnosed: 11/10/2022 Dyspnea on exertion [R06.09] 12/19/2021 Diagnosed: 11/10/2022 Fatigue [R53.83] 11/10/2022 Diagnosed: 11/10/2022 Hereditary peripheral neuropathy [G60.9] 09/23/2015 Diagnosed: 11/10/2022 Idiopathic peripheral neuropathy [G60.9] 07/18/2014 Diagnosed: 11/10/2022 Irritable bowel syndrome [K58.9] 11/10/2022 Diagnosed: 11/10/2022 Neuralgia [M79.2] 12/06/2013 Diagnosed: 11/10/2022 Neurogenic bladder [N31.9] 11/10/2022 Diagnosed: 11/10/2022 Pain in both lower legs [M79.661, M79.662] 11/10/2022 Diagnosed: 11/10/2022 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 Normal [facility] CARDIAC PERF STRESS/PHARM on 03-14-2024 NM CARDIAC PERF STRESS/PHARM * * *Final Report* * * DATE OF EXAM: Mar 14 2024 6:58AM WON 0006 - NM CARDIAC PERF STRESS/PHARM / PROCEDURE REASON: multiple diagnoses * * * * Physician Interpretation * * * * Stress [employer] Grade Teacher Report: [facility] Date of service: 03/14/2024 6:58:58 AM Supervising physician: Mina Metzger MD PATIENT: Name: MRS. JENNI ALBRIGHT Age: 73 years Gender: F The supervising physician was in the department and immediately available. * * * Final * * * -- PATIENT: Name: MRS. JENNI ALBRIGHT Age: 73 years Gender: F CONCLUSIONS: 1. SPECT Perfusion Study: Normal. 2. There is no scintigraphic evidence for inducible ischemia. 3. No evidence of scarred myocardium. 4. Left ventricle is normal in size. The left ventricle systolic function is normal. 5. Right ventricle is normal in size. The right ventricle systolic function is normal. 6. This is a low risk scan. Gated Stress FBP LVEF % 69 Prior Study Comparison No prior nuclear cardiology exam available for comparison. Nuclear Med Report:1-Day Gated SPECT Myocardial Perfusion with Regadenoson Stress: Myocardial perfusion imaging was performed at rest 30 minutes following the IV injection of the radiotracer. The patient received 0.4 mg of regadenoson, via rapid IV push, immediately followed by radiotracer IV. Gated post stress tomographic imaging was performed 30 to 60 minutes later. See administered radiotracer and doses below. [facility] Date of service: 03/14/2024 6:58:58 AM Ordering Physician: DA DE LA ROSA. Requesting Physician: DA DE LA ROSA Indication: Assessment for known CAD and CP - ECG uniterpretable OR unable to exercise Interpreting physician: Abhishek Hall MD Height: 157.48 cm BSA: 2.11 m? Weight: 102.06 kg BMI: 41.2 kg/m? Imaging Protocol Limitation Reason Arm interference and Breast attenuation. Exam Type: Rest Stress Radiopharm: Tc-99m Tetrofosmin Tc-99m Tetrofosmin Dosage(mCi): 16.1 46.7 Stress Agent: Regadenoson 0.4mg Supply provided from [facility] Image Quality The overall study imaging quality was deemed to be poor. The following technical issues were noted: Arm interference and Breast attenuation. FINDINGS: Left Ventricle Wall Motion: Stress IR:3D - All segments are normal. Rest IR:3D - Gated Stress FBP - Reversibility - Stress IR:3D Stress IR:3D Gated Stress FBP LVEF: 69 % ED Volume: 97 ml ES Volume: 30 ml TID: 0.95 Perfusion Findings Stress IR:3D - Summed Score=0 All segments demonstrate normal perfusion. Rest IR:3D - Summed Score=0 All segments demonstrate normal perfusion. Stress IR:3D Rest IR:3D Summed Score=0 Summed Score=0 LEFT VENTRICLE The left ventricle is normal in size. Left ventricular systolic function is normal. Right Ventricle The right ventricle is normal in size. Right ventricle systolic function is normal. Stress Test Findings: There is no scintigraphic evidence for inducible ischemia. There is no evidence of scarring. * * * Final * * * -- Stress ECG Report: [facility] Date of service: 03/14/2024 6:58:58 AM Ordering physician: DA DE LA ROSA Interpreting physician: Mina Metzger MD Patient name: MRS. JENNI ALBRIGHT Age: 73 years Gender: F Height: 157.48 cm BSA: 2.11 m? Weight: 102.06 kg BMI: 41.2 kg/m? Indication: Atherosclerotic heart disease NOS and Encounter for screening for cardiovascular disorders Stress ECG Conclusion: Conclusion: Non-diagnostic due to ventricular paced rhythm Prior exam comparison: No prior CC exam Stress ECG Summary: The patient's resting heart rate was 63 bpm and blood pressure was 148/68 mmHg. The test was terminated due to end of protocol. No symptoms provoked during stress. The maximum heart rate was 86 bpm, which is 59% of the predicted heart rate for age. Peak blood pressure was 138/68 mmHg. The double product achieved was [address]. Previous cardiovascular interventions: CABG (07/22/13) Diagnostic cath (1979) Resting ECG: Ventricular Paced Rhythm Symptoms at rest: No symptoms Pharamcologic Protocol: Regadenoson Stress Exercise Table: +-----+--+---+---+ Stage HR SYS BRITTANY +-----+--+---+---+ 1 82 +-----+--+---+---+ 2 92 152 68 +-----+--+---+---+ 3 89 +-----+--+---+---+ 4 86 138 68 +-----+--+---+---+ +-----+--+---+---+ HR SYS BRITTANY +-----+--+---+---+ Final 86 138 68 +-----+--+---+---+ +------+ ---+ Stage Arrhythmias +---- (more content not included)... Normal [facility] Heart Perfusion W stress and W radionuclide Gabriela 03-14-2024 * * *Final Report* * * DATE OF EXAM: Mar 14 2024 6:58AM [facility]PHARM / PROCEDURE REASON: multiple diagnoses * * * * Physician Interpretation * * * * Stress [employer] Grade Teacher Report: [facility] Date of service: 03/14/2024 6:58:58 AM Supervising physician: Mina Metzger MD PATIENT: Name: MRS. JENNI ALBRIGHT Age: 73 years Gender: F The supervising physician was in the department and immediately available. * * * Final * * * -- PATIENT: Name: MRS. JENNI ALBRIGHT Age: 73 years Gender: F CONCLUSIONS: 1. SPECT Perfusion Study: Normal. 2. There is no scintigraphic evidence for inducible ischemia. 3. No evidence of scarred myocardium. 4. Left ventricle is normal in size. The left ventricle systolic function is normal. 5. Right ventricle is normal in size. The right ventricle systolic function is normal. 6. This is a low risk scan. Gated Stress FBP LVEF % 69 Prior Study Comparison No prior nuclear cardiology exam available for comparison. Nuclear Med Report:1-Day Gated SPECT Myocardial Perfusion with Regadenoson Stress: Myocardial perfusion imaging was performed at rest 30 minutes following the IV injection of the radiotracer. The patient received 0.4 mg of regadenoson, via rapid IV push, immediately followed by radiotracer IV. Gated post stress tomographic imaging was performed 30 to 60 minutes later. See administered radiotracer and doses below. [facility] Date of service: 03/14/2024 6:58:58 AM Ordering Physician: DA DE LA ROSA. Requesting Physician: DA DE LA ROSA Indication: Assessment for known CAD and CP - ECG uniterpretable OR unable to exercise Interpreting physician: Abhishek Hall MD Height: 157.48 cm BSA: 2.11 m Weight: 102.06 kg BMI: 41.2 kg/m Imaging Protocol Limitation Reason Arm interference and Breast attenuation. Exam Type: Rest Stress Radiopharm: Tc-99m Tetrofosmin Tc-99m Tetrofosmin Dosage(mCi): 16.1 46.7 Stress Agent: Regadenoson 0.4mg Supply provided from [facility] Image Quality The overall study imaging quality was deemed to be poor. The following technical issues were noted: Arm interference and Breast attenuation. FINDINGS: Left Ventricle Wall Motion: Stress IR:3D - All segments are normal. Rest IR:3D - Gated Stress FBP - Reversibility - Stress IR:3D Stress IR:3D Gated Stress FBP LVEF: 69 % ED Volume: 97 ml ES Volume: 30 ml TID: 0.95 Perfusion Findings Stress IR:3D - Summed Score=0 All segments demonstrate normal perfusion. Rest IR:3D - Summed Score=0 All segments demonstrate normal perfusion. Stress IR:3D Rest IR:3D Summed Score=0 Summed Score=0 LEFT VENTRICLE The left ventricle is normal in size. Left ventricular systolic function is normal. Right Ventricle The right ventricle is normal in size. Right ventricle systolic function is normal. Stress Test Findings: There is no scintigraphic evidence for inducible ischemia. There is no evidence of scarring. * * * Final * * * -- Stress ECG Report: [facility] Date of service: 03/14/2024 6:58:58 AM Ordering physician: DA DE LA ROSA Interpreting physician: Mina Metzger MD Patient name: MRS. JENNI ALBRIGHT Age: 73 years Gender: F Height: 157.48 cm BSA: 2.11 m Weight: 102.06 kg BMI: 41.2 kg/m Indication: Atherosclerotic heart disease NOS and Encounter for screening for cardiovascular disorders Stress ECG Conclusion: Conclusion: Non-diagnostic due to ventricular paced rhythm Prior exam comparison: No prior CC exam Stress ECG Summary: The patient's resting heart rate was 63 bpm and blood pressure was 148/68 mmHg. The test was terminated due to end of protocol. No symptoms provoked during stress. The maximum heart rate was 86 bpm, which is 59% of the predicted heart rate for age. Peak blood pressure was 138/68 mmHg. The double product achieved was [address]. Previous cardiovascular interventions: CABG (07/22/13) Diagnostic cath (1979) Resting ECG: Ventricular Paced Rhythm Symptoms at rest: No symptoms Pharamcologic Protocol: Regadenoson Stress Exercise Table: +-----+--+--- (more content not included)... DIVISION OF RADIOLOGY [facility] * * *Final Report* * * DATE OF EXAM: Mar 14 2024 6:58AM WON 0006 - NM CARDIAC PERF STRESS/PHARM / PROCEDURE REASON: multiple diagnoses * * * * Physician Interpretation * * * * Stress [employer] Grade Teacher Report: [facility] Date of service: 03/14/2024 6:58:58 AM Supervising physician: Mina Metzger MD PATIENT: Name: MRS. JENNI ALBRIGHT Age: 73 years Gender: F The supervising physician was in the department and immediately available. * * * Final * * * -- PATIENT: Name: MRS. JENNI ALBRIGHT Age: 73 years Gender: F CONCLUSIONS: 1. SPECT Perfusion Study: Normal. 2. There is no scintigraphic evidence for inducible ischemia. 3. No evidence of scarred myocardium. 4. Left ventricle is normal in size. The left ventricle systolic function is normal. 5. Right ventricle is normal in size. The right ventricle systolic function is normal. 6. This is a low risk scan. Gated Stress FBP LVEF % 69 Prior Study Comparison No prior nuclear cardiology exam available for comparison. Nuclear Med Report:1-Day Gated SPECT Myocardial Perfusion with Regadenoson Stress: Myocardial perfusion imaging was performed at rest 30 minutes following the IV injection of the radiotracer. The patient received 0.4 mg of regadenoson, via rapid IV push, immediately followed by radiotracer IV. Gated post stress tomographic imaging was performed 30 to 60 minutes later. See administered radiotracer and doses below. [facility] Date of service: 03/14/2024 6:58:58 AM Ordering Physician: DA DE LA ROSA. Requesting Physician: DA DE LA ROSA Indication: Assessment for known CAD and CP - ECG uniterpretable OR unable to exercise Interpreting physician: Abhishek Hall MD Height: 157.48 cm BSA: 2.11 m Weight: 102.06 kg BMI: 41.2 kg/m Imaging Protocol Limitation Reason Arm interference and Breast attenuation. Exam Type: Rest Stress Radiopharm: Tc-99m Tetrofosmin Tc-99m Tetrofosmin Dosage(mCi): 16.1 46.7 Stress Agent: Regadenoson 0.4mg Supply provided from [facility] Image Quality The overall study imaging quality was deemed to be poor. The following technical issues were noted: Arm interference and Breast attenuation. FINDINGS: Left Ventricle Wall Motion: Stress IR:3D - All segments are normal. Rest IR:3D - Gated Stress FBP - Reversibility - Stress IR:3D Stress IR:3D Gated Stress FBP LVEF: 69 % ED Volume: 97 ml ES Volume: 30 ml TID: 0.95 Perfusion Findings Stress IR:3D - Summed Score=0 All segments demonstrate normal perfusion. Rest IR:3D - Summed Score=0 All segments demonstrate normal perfusion. Stress IR:3D Rest IR:3D Summed Score=0 Summed Score=0 LEFT VENTRICLE The left ventricle is normal in size. Left ventricular systolic function is normal. Right Ventricle The right ventricle is normal in size. Right ventricle systolic function is normal. Stress Test Findings: There is no scintigraphic evidence for inducible ischemia. There is no evidence of scarring. * * * Final * * * -- Stress ECG Report: [facility] Date of service: 03/14/2024 6:58:58 AM Ordering physician: DA DE LA ROSA Interpreting physician: Mina Metzger MD Patient name: MRS. JENNI ALBRIGHT Age: 73 years Gender: F Height: 157.48 cm BSA: 2.11 m Weight: 102.06 kg BMI: 41.2 kg/m Indication: Atherosclerotic heart disease NOS and Encounter for screening for cardiovascular disorders Stress ECG Conclusion: Conclusion: Non-diagnostic due to ventricular paced rhythm Prior exam comparison: No prior CC exam Stress ECG Summary: The patient's resting heart rate was 63 bpm and blood pressure was 148/68 mmHg. The test was terminated due to end of protocol. No symptoms provoked during stress. The maximum heart rate was 86 bpm, which is 59% of the predicted heart rate for age. Peak blood pressure was 138/68 mmHg. The double product achieved was 66[address]. Previous cardiovascular interventions: CABG (07/22/13) Diagnostic cath (1979) Resting ECG: Ventricular Paced Rhythm Symptoms at rest: No symptoms Pharamcologic Protocol: Regadenoson Stress Exercise Table: +-----+--+---+---+ Stage HR SYS BRITTANY +-----+--+---+---+ 1 82 +-----+--+---+---+ 2 92 152 68 +-----+--+---+---+ 3 89 +-----+--+---+---+ 4 86 138 68 +-----+--+---+---+ +-----+--+---+---+ (more content not included)... [facility] Radiology Study observation (narrative) [facility] NM Heart Perfusion W stress and W radionuclide IVOrdered By: [facility] Provider on 03-14-2024 [facility] Donna 03-09-2024 [facility] Telephone (CAWSTR) -------- JENNI ALBRIGHT ([id number]) 1950 F Date Time Provider Department 03/09/24 NURSE CARD ADMIN [facility] WSTR CAWSTR During your visit today, we recorded the following information about you: Deena Reddy RN 03/09/2024 10:01 AM Signed Called and reviewed the below instructions with the patient. Deena Reddy RN You are scheduled for a stress test on 03/14/24 at 8:30am. This stress test will appear as 3 appointments on your schedule. You may get multiple reminder calls, but please arrive at the earliest scheduled appointment. Please follow below instructions: *NOTHING BY MOUTH 4 HOURS prior to this test. (you may have sips of water) *NO CAFFEINE FOR 24 HOURS PRIOR TO TESTING (including TEA even decaf, COFFEE- even decaf, CHOCOLATE, MAYANK- even decaf) *Do NOT take MEDICATIONS CONTAINING CAFFEINE/XANTHINE for 24 HOURS prior to testing: Theophylline, Trental, Excedrin, Anacin, Goody Powders, No Doz, Vivarin, Midol, Diurex, Fiorinal, Fioricet, Esgic (butalbital) *Do NOT take Calcium Channel Blockers 24 HOURS prior to test. *Do NOT take Beta blockers 24 HOURS prior to test UNLESS your doctor tells you otherwise. *Do NOT use the following medications 48 HOURS prior to this test: Viagra(Sildenafil citrate), Cialis(Tadalafil), Vardenafil (Levitra, Stanyx), Avanfil (Stendra). *Do not take any of these meds prior to test unless provider directs you otherwise; Nitroglycerine (ex:Deponit, Nitrostat) Isosorbide (ex:Isordil, Sorbitrate,Imdur,Ismo). Medications on your list you should hold for 24 HOURS: Coreg, nitro *All other medications may be taken as you normally would. *Guidelines for Diabetics: If you take insulin to control your blood sugar, ask you physician what amount you should take the day of the test. If you take pills to control blood sugar, on the day of the test, do NOT take them until AFTER the test. *FAILURE TO FOLLOW THESE INSTRUCTIONS WILL RESULT IN HAVING TO RESCHEDULE THE TEST. *If you use an inhaler, bring it along with you just in case *THIS TEST MAY TAKE UP TO 3 HOURS TO COMPLETE. Please check in on the first floor at Radiology: [address]; [place] [address] * If you need to cancel or reschedule this test or have any questions regarding this test, please call [phone]. Allergies As of Date: 03/09/2024 Noted Allergy Reaction GLATIRAMER 07/20/2018 9 - Itching 2 - Rash Date Reviewed: 03/07/2024 Reviewed by: Kimi Gaxiola LPN - Fully Assessed Reason for Visit: Stress Test Instructions for 03/14/24 [Other] Prescriptions as of 03/09/2024 - pravastatin (PRAVACHOL) 40 mg tablet Take 1 tablet by mouth daily at bedtime. - losartan (COZAAR) 50 mg tablet Take 1 tablet by mouth once daily. - spironolactone (ALDACTONE) 25 mg tablet Take 1 tablet by mouth once daily. - magnesium oxide (MAGOX) 400 mg (241.3 mg magnesium) tablet Take 1 tablet by mouth two times a day. - apixaban (ELIQUIS) 5 mg tab(s) Take 1 tablet by mouth two times a day. - carvedilol (COREG) 25 mg tablet Take 0.5 tablets by mouth two times a day. - esomeprazole (NEXIUM) 40 mg capsule Take 1 capsule by mouth daily before breakfast. 1/2 hr before meal. - fenofibrate nanocrystallized (TRICOR) 145 mg tablet Take 1 tablet by mouth once daily. - DULoxetine (CYMBALTA) 30 mg capsule take 1 capsule by mouth every day in the evening - DULoxetine (CYMBALTA) 60 mg capsule - VUMERITY 231 mg capsule, delayed release Twice daily-Dr. Clemente - dimethyl fumarate (TECFIDERA) [address] Take 1 capsule by mouth twice daily. - SYMBICORT 160-4.5 mcg/actuation inhaler Inhale 2 Puffs as instructed twice daily as needed. - gabapentin (NEURONTIN) 800 mg tablet Take 1 tablet by mouth four times daily. - ALBUTEROL SULFATE HFA INHALATION Inhale as instructed. - baclofen (LIORESAL) 20 mg tablet Take by mouth three times daily as needed. 1 in am, 1in afternoon and 2 at bedtime - COMPOUNDED PRESCRIPTION One pair of shoes to fit over leg brace. Dx: G35; M79.2 - nitroglycerin sublingual (NITROQUICK) 0.4 mg SL tablet Dissolve 1 tablet under the tongue every 5 minutes as needed for Chest Pain. - multivitamin (MULTIPLE VITAMINS) tablet Take 1 tablet by mouth once daily. - aspirin, enteric coated (ASPIRIN, ENTERIC COATED) 81 mg EC tablet Take 81 mg by mouth once daily. - ferrous sulfate 325 mg (65 mg iron) tablet Take 325 mg by mouth daily with breakfast. Meds Comments as of 02/08/2021: OTC Cranberry and Vitamin C. Problem List As Of Date 03/09/2024 Noted Resolved Multiple sclerosis [G35] Neuropathic pain [M79.2] Hyperlipidemia [E78.5] GERD (gastroesophageal reflux disease) [K21.9] Vitamin D deficiency [E55.9] Back pain [M54.9] REBECCA (obstructive sleep apnea) [G47.33] Iron deficiency anemia [D50.9] History of rectal polypectomy [Z98.890, Z87.19] 07/13/2011 CAD ( (more content not included)... Normal [facility] CNOVon 03-07-2024 CNOV Office Visit (FAMPWS ) -------- JENNI ALBRIGHT ([id number]) 1950 F Date Time Provider Department 03/07/24 8:40 AM SOPHIA CASTILLOWS During your visit today, we recorded the following information about you: Pulse Respiration Blood pressure Weight 90/minute 16/minute 104/76 102.1 kg Sophia Castillo APRN.CHILDB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 03/07/2024 8:25 AM Addendum Keep scheduled appointment with Endocrinology Get repeat fasting labs in 6 months prior to next visit Work on eating a low carb diet, increase proteins, veggies, and stay active. Continue to take all medication as prescribed. Keep scheduled appointments with specialists Flu vaccine given today Follow up in 6 months Condiments: Sophia Brown APRN.CHILDB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 03/07/2024 9:20 AM Signed This is a 73 year old female who presents today with: Patient presents with: F/U 6 Month HISTORY OF PRESENT ILLNESS: Jenni Albright is a 73 year old female. Patient presents with: F/U 6 Month 6 month follow up Elevated Calcium and PTH, has consult with endocrinology next month Foot Surgery: Had PIPJ fusion 2nd/3rd digits on right foot with Dr. Franco.Healed up without any issues. HTN/CHF: Follows with Cardiology, Dr. De La Rosa. Denies any chest pain, dizziness, or SOB. Not currently checking blood pressure at home. Taking Coreg 25 mg half pill BID, Losartan 50 mg daily, and Aldactone 25 mg daily. Has a pacemaker. Has stress test in March. PE AND DVT: Is on Eliquis 5 mg BID. CAD/Lipid/Glucose: Taking Tricor 145 mg daily and Pravastatin 20 mg daily. Does not watch diet or exercise. MS: Taking Tecfidera 240 mg BID, Gabapentin 800 mg QID and Vumerity 231 mg 1 pill BID. No longer on Rebif injections weekly. Follows with Neurology Dr. Clemente. REBECCA: Using CPAP nightly. Follows with Dr. Fernandez, Pulmonology. Gets supplies through [employer]. Vaccines: Would like flu vaccine Colonscopy: Denies wanting screening at this time. PAST MEDICAL HISTORY: PAST MEDICAL HISTORY Diagnosis [...] Pulmonary embolism (HCC) 07/2013 during hospitalization for [place] Vitamin D deficiency PAST SURGICAL HISTORY Procedure Laterality Date CABG, ARTERIAL, TWO 07/22/13 THURMAN to LAD and Dx CARPAL TUNNEL CATARACT EXTRACTION HX Right 03/23/2017 Dr. Das - [place] CATARACT EXTRACTION HX Left 04/16/2017 Dr. Das COLONOSCOPY 08/01/2011 5mm rectal polyp COLONOSCOPY 12/05/2015 rectal polyp (adenoma) and diverticulosis EGD 07/17/2011 sliding hiatal hernia ENDOSCOPY PROC 11/19/15 Dr. Lema- HEART CATHETERIZATION ?1980s HYSTERECTOMY HX 1982 PACEMAKER ROTATOR CUFF REPAIR right ALLERGIES Glatiramer MEDICATIONS Current Outpatient Medications Medication Sig pravastatin (PRAVACHOL) 40 mg tablet Take 1 tablet by mouth daily at bedtime. losartan (COZAAR) 50 mg tablet Take 1 tablet by mouth once daily. spironolactone (ALDACTONE) 25 mg tablet Take 1 tablet by mouth once daily. magnesium oxide (MAGOX) 400 mg (241.3 mg magnesium) tablet Take 1 tablet by mouth two times a day. apixaban (ELIQUIS) 5 mg tab(s) Take 1 tablet by mouth two times a day. carvedilol (COREG) 25 mg tablet Take 0.5 tablets by mouth two times a day. esomeprazole (NEXIUM) 40 mg capsule Take 1 capsule by mouth daily before breakfast. 1/2 hr before meal. fenofibrate nanocrystallized (TRICOR) 145 mg tablet Take 1 tablet by mouth once daily. DULoxetine (CYMBALTA) 30 mg capsule take 1 capsule by mouth every day in the evening DULoxetine (CYMBALTA) 60 mg capsule VUMERITY 231 mg capsule, delayed release Twice [...] iron) tablet Take 325 mg by mouth da (more content not included)... Normal [facility] 02-18-2024 CNPN Telephone (ZELDAMOB) -------- JENNI ALBRIGHT ([id number]) 1950 F Date Time Provider Department 02/18/24 KIMI AYALA During your visit today, we recorded the following information about you: Tami Baker 02/18/2024 12:31 PM Signed Patient called stating that her last appt w/ Dr. De La Rosa, he told her to schedule an appt w/ Dr. Ayala because it is about time for the battery to be changed. Please call her to schedule @ [phone]. Millie Reardon 02/18/2024 3:13 PM Signed Please see previous note and advise.Miko Nielsen RN 02/18/2024 4:11 PM Signed Device check dated 12/09/2023 and previously scanned to chart indicated about one year until [facility]MON. Previous device check dated 05/21/2023 and also scanned to chart indicated 2.5 yrs until AMMON. Miko Aguirre RN February 18, 2024 4:07 PM Miko Aguirre RN 02/18/2024 4:11 PM S[address] Reviewed with Dr. Ayala. Please offer an appointment with Dr. Draper on 05/05/2023 at 2:00 pm for evaluation. If Ms. Albright accepts this appointment, please add her to the [facility] schedule as well. Miko Aguirre RN February 18, 2024 4:08 PM Millie Reardon 02/19/2024 10:44 AM Signed I called and patient and she excepted the appointment on 05/05/24 @ 2:00 and device.Millie Reardon Allergies As of Date: 02/18/2024 Noted Allergy Reaction GLATIRAMER 07/20/2018 9 - Itching 2 - Rash Date Reviewed: 02/03/2024 Reviewed by: Eula Cedeño MA - Fully Assessed Reason for Visit: Appointment [186] Cmt: Discuss battery change Prescriptions as of 02/19/2024 - pravastatin (PRAVACHOL) 40 mg tablet Take 1 tablet by mouth daily at bedtime. - losartan (COZAAR) 50 mg tablet Take 1 tablet by mouth once daily. - spironolactone (ALDACTONE) 25 mg tablet Take 1 tablet by mouth once daily. - magnesium oxide (MAGOX) 400 mg (241.3 mg magnesium) tablet Take 1 tablet by mouth two times a day. - apixaban (ELIQUIS) 5 mg tab(s) Take 1 tablet by mouth two times a day. - carvedilol (COREG) 25 mg tablet Take 0.5 tablets by mouth two times a day. - esomeprazole (NEXIUM) 40 mg capsule Take 1 capsule by mouth daily before breakfast. 1/2 hr before meal. - fenofibrate nanocrystallized (TRICOR) 145 mg tablet Take 1 tablet by mouth once daily. - DULoxetine (CYMBALTA) 30 mg capsule take 1 capsule by mouth every day in the evening - DULoxetine (CYMBALTA) 60 mg capsule - VUMERITY 231 mg capsule, delayed release Twice daily-Dr. Clemente - dimethyl fumarate (TECFIDERA) [address] Take 1 capsule by mouth twice daily. - SYMBICORT 160-4.5 mcg/actuation inhaler Inhale 2 Puffs as instructed twice daily as needed. - gabapentin (NEURONTIN) 800 mg tablet Take 1 tablet by mouth four times daily. - ALBUTEROL SULFATE HFA INHALATION Inhale as instructed. - baclofen (LIORESAL) 20 mg tablet Take by mouth three times daily as needed. 1 in am, 1in afternoon and 2 at bedtime - COMPOUNDED PRESCRIPTION One pair of shoes to fit over leg brace. Dx: G35; M79.2 - nitroglycerin sublingual (NITROQUICK) 0.4 mg SL tablet Dissolve 1 tablet under the tongue every 5 minutes as needed for Chest Pain. - multivitamin (MULTIPLE VITAMINS) tablet Take 1 tablet by mouth once daily. - aspirin, enteric coated (ASPIRIN, ENTERIC COATED) 81 mg EC tablet Take 81 mg by mouth once daily. - ferrous sulfate 325 mg (65 mg iron) tablet Take 325 mg by mouth daily with breakfast. Meds Comments as of 02/08/2021: OTC Cranberry and Vitamin C. Problem List As Of Date 02/18/2024 Noted Resolved Multiple sclerosis [G35] Neuropathic pain [M79.2] Hyperlipidemia [E78.5] GERD (gastroesophageal reflux disease) [K21.9] Vitamin D deficiency [E55.9] Back pain [M54.9] REBECCA (obstructive sleep apnea) [G47.33] Iron deficiency anemia [D50.9] History of rectal polypectomy [Z98.890, Z87.19] 07/13/2011 CAD (coronary artery disease) [I25.10] 07/12/2013 Pulmonary embolism (HCC) [I26.99] 07/12/2013 Essential hypertension [I10] 12/21/2014 Cardiac pacemaker [Z95.0] 09/14/2015 History of DVT (deep vein thrombosis) [Z86.718] 09/14/2015 Positive occult stool blood test [R19.5] 05/04/2018 Spastic hemiplegia, unspecified etiology, unspe*08/19/2022 Morbid obesity (HCC) [E66.01] 08/19/2022 Congestive heart failure, unspecified HF chroni*08/19/2022 PAF (paroxysmal atrial fibrillation) (HCC) [I48*08/19/2022 Abnormal result of other cardiovascular functio*11/22/2014 Diagnosed: 11/10/2022 Biventricular implantable cardioverter-defibril* Diagnosed: 11/10/2022 Calf pain [M79.669] 2021 Diagnosed: 11/10/2022 Cervico-occipital neuralgia [M54.81] 06/17/2016 Diagnosed: 11/10/2022 correction current use of anticoagulant therapy *11/10/2022 Diagnosed: 11/10/2022 Delirium [R41.0] 11/10/2022 Diagnosed: 11/10/2022 Dysphagia [R13.10] 01/09/2022 Diagnosed: 11/10/2022 Dyspnea on (more content not included)... [facility] Donna 02-15-2024 [facility] Telephone (FAMPWS) -------- JENNI ALBRIGHT ([id number]) 1950 F Date Time Provider Department 02/15/24 DEION RUSSELL During your visit today, we recorded the following information about you: Deion Russell APRN.CNP 02/15/2024 12:37 PM Signed Please let the patient know that her labs look okay with exception of her calcium level. Calcium level is high at 11.7. Her parathyroid hormones also elevated. We should get her to endocrinology for further evaluation. I placed a referral. If she is taking any calcium supplements [id number] they should be discontinued immediately. Please have the patient continue with plan follow-up with Sophia as scheduled. Deion Russell APRN.Shara Ty MA 02/15/2024 1:48 PM Signed Pt notified. Is not taking any calcium. Transferred to [facility] to set up Endo appt. Shara Oneil MA Allergies As of Date: 02/15/2024 Noted Allergy Reaction GLATIRAMER 07/20/2018 9 - Itching 2 - Rash Date Reviewed: 02/03/2024 Reviewed by: Eula Cedeño MA - Fully Assessed Reason for Visit: Results [95] Primary Visit Diagnosis:Hypercalcemia [E83.52] Order(s):CONSULT TO ENDOCRINOLOGY [9007] Order #: [id number]: 1 FUTURE Prescriptions as of 02/15/2024 - pravastatin (PRAVACHOL) 40 mg tablet Take 1 tablet by mouth daily at bedtime. - losartan (COZAAR) 50 mg tablet Take 1 tablet by mouth once daily. - spironolactone (ALDACTONE) 25 mg tablet Take 1 tablet by mouth once daily. - magnesium oxide (MAGOX) 400 mg (241.3 mg magnesium) tablet Take 1 tablet by mouth two times a day. - apixaban (ELIQUIS) 5 mg tab(s) Take 1 tablet by mouth two times a day. - carvedilol (COREG) 25 mg tablet Take 0.5 tablets by mouth two times a day. - esomeprazole (NEXIUM) 40 mg capsule Take 1 capsule by mouth daily before breakfast. 1/2 hr before meal. - fenofibrate nanocrystallized (TRICOR) 145 mg tablet Take 1 tablet by mouth once daily. - DULoxetine (CYMBALTA) 30 mg capsule take 1 capsule by mouth every day in the evening - DULoxetine (CYMBALTA) 60 mg capsule - VUMERITY 231 mg capsule, delayed release Twice daily-Dr. Clemente - dimethyl fumarate (TECFIDERA) [address] Take 1 capsule by mouth twice daily. - SYMBICORT 160-4.5 mcg/actuation inhaler Inhale 2 Puffs as instructed twice daily as needed. - gabapentin (NEURONTIN) 800 mg tablet Take 1 tablet by mouth four times daily. - ALBUTEROL SULFATE HFA INHALATION Inhale as instructed. - baclofen (LIORESAL) 20 mg tablet Take by mouth three times daily as needed. 1 in am, 1in afternoon and 2 at bedtime - COMPOUNDED PRESCRIPTION One pair of shoes to fit over leg brace. Dx: G35; M79.2 - nitroglycerin sublingual (NITROQUICK) 0.4 mg SL tablet Dissolve 1 tablet under the tongue every 5 minutes as needed for Chest Pain. - multivitamin (MULTIPLE VITAMINS) tablet Take 1 tablet by mouth once daily. - aspirin, enteric coated (ASPIRIN, ENTERIC COATED) 81 mg EC tablet Take 81 mg by mouth once daily. - ferrous sulfate 325 mg (65 mg iron) tablet Take 325 mg by mouth daily with breakfast. Meds Comments as of 02/08/2021: OTC Cranberry and Vitamin C. Problem List As Of Date 02/15/2024 Noted Resolved Multiple sclerosis [G35] Neuropathic pain [M79.2] Hyperlipidemia [E78.5] GERD (gastroesophageal reflux disease) [K21.9] Vitamin D deficiency [E55.9] Back pain [M54.9] REBECCA (obstructive sleep apnea) [G47.33] Iron deficiency anemia [D50.9] History of rectal polypectomy [Z98.890, Z87.19] 07/13/2011 CAD (coronary artery disease) [I25.10] 07/12/2013 Pulmonary embolism (HCC) [I26.99] 07/12/2013 Essential hypertension [I10] 12/21/2014 Cardiac pacemaker [Z95.0] 09/14/2015 History of DVT (deep vein thrombosis) [Z86.718] 09/14/2015 Positive occult stool blood test [R19.5] 05/04/2018 Spastic hemiplegia, unspecified etiology, unspe*08/19/2022 Morbid obesity (HCC) [E66.01] 08/19/2022 Congestive heart failure, unspecified HF chroni*08/19/2022 PAF (paroxysmal atrial fibrillation) (HCC) [I48*08/19/2022 Abnormal result of other cardiovascular functio*11/22/2014 Diagnosed: 11/10/2022 Biventricular implantable cardioverter-defibril* Diagnosed: 11/10/2022 Calf pain [M79.669] 2021 Diagnosed: 11/10/2022 Cervico-occipital neuralgia [M54.81] 06/17/2016 Diagnosed: 11/10/2022 correction current use of anticoagulant therapy *11/10/2022 Diagnosed: 11/10/2022 Delirium [R41.0] 11/10/2022 Diagnosed: 11/10/2022 Dysphagia [R13.10] 01/09/2022 Diagnosed: 11/10/2022 Dyspnea on exertion [R06.09] 12/19/2021 Diagnosed: 11/10/2022 Fatigue [R53.83] 11/10/2022 Diagnosed: 11/10/2022 Hereditary peripheral neuropathy [G60.9] 09/23/2015 Diagnosed: 11/10/2022 Idiopathic peripheral neuropathy [G60.9] 07/18/2014 Diagnosed: 11/10/2022 Irritable bowel syndrome [K58.9] 11/10/2022 Diagnosed: 11/10/2022 Neuralgia [M79.2] (more content not included)... [facility] JENNI ALBRIGHT ([id number]) 1950 F Date Time Provider Department 02/10/24 ZAIRA SARKAR During your visit today, we recorded the following information about you: Geetha Mohamud MA 02/10/2024 9:20 AM Signed ----- Message from Zaira Sarkar APRN.CHILDB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 sent at 02/10/2024 7:27 AM EDT ----- Please let the patient know her urinalysis was normal, no further work-up needed Zaira Sarkar APRN.Geetha Delcid MA 02/10/2024 9:25 AM Signed Patient notified. Allergies As of Date: 02/10/2024 Noted Allergy Reaction GLATIRAMER 07/20/2018 9 - Itching 2 - Rash Date Reviewed: 02/03/2024 Reviewed by: Eula Cedeño MA - Fully Assessed Reason for Visit: Results [95] Prescriptions as of 02/10/2024 - nitrofurantoin monohydrate and macrocrystal (MACROBID) 100 mg capsule Take 1 capsule by mouth two times a day with meals for 7 days. - pravastatin (PRAVACHOL) 40 mg tablet Take 1 tablet by mouth daily at bedtime. - losartan (COZAAR) 50 mg tablet Take 1 tablet by mouth once daily. - spironolactone (ALDACTONE) 25 mg tablet Take 1 tablet by mouth once daily. - magnesium oxide (MAGOX) 400 mg (241.3 mg magnesium) tablet Take 1 tablet by mouth two times a day. - apixaban (ELIQUIS) 5 mg tab(s) Take 1 tablet by mouth two times a day. - carvedilol (COREG) 25 mg tablet Take 0.5 tablets by mouth two times a day. - esomeprazole (NEXIUM) 40 mg capsule Take 1 capsule by mouth daily before breakfast. 1/2 hr before meal. - fenofibrate nanocrystallized (TRICOR) 145 mg tablet Take 1 tablet by mouth once daily. - DULoxetine (CYMBALTA) 30 mg capsule take 1 capsule by mouth every day in the evening - DULoxetine (CYMBALTA) 60 mg capsule - VUMERITY 231 mg capsule, delayed release Twice daily-Dr. Clemente - dimethyl fumarate (TECFIDERA) [address] Take 1 capsule by mouth twice daily. - SYMBICORT 160-4.5 mcg/actuation inhaler Inhale 2 Puffs as instructed twice daily as needed. - gabapentin (NEURONTIN) 800 mg tablet Take 1 tablet by mouth four times daily. - ALBUTEROL SULFATE HFA INHALATION Inhale as instructed. - baclofen (LIORESAL) 20 mg tablet Take by mouth three times daily as needed. 1 in am, 1in afternoon and 2 at bedtime - COMPOUNDED PRESCRIPTION One pair of shoes to fit over leg brace. Dx: G35; M79.2 - nitroglycerin sublingual (NITROQUICK) 0.4 mg SL tablet Dissolve 1 tablet under the tongue every 5 minutes as needed for Chest Pain. - multivitamin (MULTIPLE VITAMINS) tablet Take 1 tablet by mouth once daily. - aspirin, enteric coated (ASPIRIN, ENTERIC COATED) 81 mg EC tablet Take 81 mg by mouth once daily. - ferrous sulfate 325 mg (65 mg iron) tablet Take 325 mg by mouth daily with breakfast. Meds Comments as of 02/08/2021: OTC Cranberry and Vitamin C. Problem List As Of Date 02/10/2024 Noted Resolved Multiple sclerosis [G35] Neuropathic pain [M79.2] Hyperlipidemia [E78.5] GERD (gastroesophageal reflux disease) [K21.9] Vitamin D deficiency [E55.9] Back pain [M54.9] REBECCA (obstructive sleep apnea) [G47.33] Iron deficiency anemia [D50.9] History of rectal polypectomy [Z98.890, Z87.19] 07/13/2011 CAD (coronary artery disease) [I25.10] 07/12/2013 Pulmonary embolism (HCC) [I26.99] 07/12/2013 Essential hypertension [I10] 12/21/2014 Cardiac pacemaker [Z95.0] 09/14/2015 History of DVT (deep vein thrombosis) [Z86.718] 09/14/2015 Positive occult stool blood test [R19.5] 05/04/2018 Spastic hemiplegia, unspecified etiology, unspe*08/19/2022 Morbid obesity (HCC) [E66.01] 08/19/2022 Congestive heart failure, unspecified HF chroni*08/19/2022 PAF (paroxysmal atrial fibrillation) (HCC) [I48*08/19/2022 Abnormal result of other cardiovascular functio*11/22/2014 Diagnosed: 11/10/2022 Biventricular implantable cardioverter-defibril* Diagnosed: 11/10/2022 Calf pain [M79.669] 2021 Diagnosed: 11/10/2022 Cervico-occipital neuralgia [M54.81] 06/17/2016 Diagnosed: 11/10/2022 correction current use of anticoagulant therapy *11/10/2022 Diagnosed: 11/10/2022 Delirium [R41.0] 11/10/2022 Diagnosed: 11/10/2022 Dysphagia [R13.10] 01/09/2022 Diagnosed: 11/10/2022 Dyspnea on exertion [R06.09] 12/19/2021 Diagnosed: 11/10/2022 Fatigue [R53.83] 11/10/2022 Diagnosed: 11/10/2022 Hereditary peripheral neuropathy [G60.9] 09/23/2015 Diagnosed: 11/10/2022 Idiopathic peripheral neuropathy [G60.9] 07/18/2014 Diagnosed: 11/10/2022 Irritable bowel syndrome [K58.9] 11/10/2022 Diagnosed: 11/10/2022 Neuralgia [M79.2] 12/06/2013 Diagnosed: 11/10/2022 Neurogenic bladder [N31.9] 11/10/2022 Diagnosed: 11/10/2022 Pain in both lower legs [M79.661, M79.662] 11/10/2022 Diagnosed: 11/10/2022 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 Normal [facility] Bacteria Ur Culton 4 Bacteria identified Cx Nom (U) ORGANISM ID: 1 >=100,000 CFU/ml Normal urogenital jaye Normal [facility] Comment on above: Performed By: #### 6 30-4 ####[facility] LABCLIA [id number] [place] [address] [place] Calcium.ionized [Moles/Vol]o n 02-09-2024 Calcium.ionized (Bld) [Mass/Vol] 1.66 mmol/L High 1.08-1.30 [facility] Comment on above: Order Comment: Speci men Type: URINE SPECIMEN Ordering Facility: [facility] Address: [address] [place] [address] Performed By: #### 2 956-1 #### [facility] CLIA [id number] [address] [place] [address] [place] [id number] [address] [place] [address] [place] [facility] Calcium.ionized adjusted to pH 7.4 (Bld) [Moles/Vol] 1.56 mmol/L High 1.08-1.30 [facility] Comment on above: Order Comment: Speci men Type: URINE SPECIMEN Ordering Facility: [facility] Address: [address] [place] [address] Performed By: #### 2 956-1 #### [facility] CLIA [id number] [address] [place] [address] [place] [facility] [place] [id number] [place] [address] [place] Comprehensive metabolic 2000 panelon 02-09-2024 Albumin [Mass/Vol] 4.5 g/dL Normal 3.9-4.9 [facility] Comment on above: Order Comment: Speci men Type: BLOOD SPECIMENOrdering Facility: [facility] Address: [address] [place] [address] Performed By: #### 2 4323-8, 08088-6, 2731-8 ####[facility] LABCLIA [id number] [place] [address] [place] ALP [Catalytic activity/Vol] 85 U/L Normal 34-123 [facility] Comment on above: Order Comment: Speci men Type: BLOOD SPECIMENOrdering Facility: [facility] Address: [address] [place] [address] Performed By: #### 2 4323-8, 39599-0, 2730-11 ####[facility] LABCLIA [id number] [place] [address] [place] ALT [Catalytic activity/Vol] 29 U/L Normal 7-38 [facility] Comment on above: Order Comment: Speci men Type: BLOOD SPECIMENOrdering Facility: [facility] Address: [address] [place] [address] Performed By: #### 2 4323-8, , 2730-11 ####[facility] LABCLIA [id number] [place] [address] [place] Anion gap [Moles/Vol] 12 mmol/L Normal 8-15 [facility] Comment on above: Order Comment: Speci men Type: BLOOD SPECIMENOrdering Facility: [facility] Address: [address] [place] [address] Performed By: #### 2 4323-8, , 2730-11 ####[facility] LABCLIA [id number] [place] [address] [place] AST [Catalytic activity/Vol] 21 U/L Normal 13-35 [facility] Comment on above: Order Comment: Speci men Type: BLOOD SPECIMENOrdering Facility: [facility] Address: [address] [place] [address] Performed By: #### 2 4323-8, 05610-0, 2730-11 ####[facility] LABCLIA [id number] [place] [address] [place] Bilirubin [Mass/Vol] 0.4 mg/dL Normal 0.2-1.3 [facility] Comment on above: Order Comment: Speci men Type: BLOOD SPECIMENOrdering Facility: [facility] Address: [address] [place] [address] Performed By: #### 2 4323-8, 37482-1, 2730-11 ####[facility] LABCLIA [id number] [address] [address] [place] Calcium [Mass/Vol] 11.7 mg/dL High 8.5-10.2 [facility] Comment on above: Order Comment: Speci men Type: BLOOD SPECIMENOrdering Facility: [facility] Address: [address] [place] [address] Performed By: #### 2 4323-8, , 2730-11 ####[facility] LABCLIA [id number] [place] [address] [place] Chloride [Moles/Vol] 100 mmol/L Normal 98-107 [facility] Comment on above: Order Comment: Speci men Type: BLOOD SPECIMENOrdering Facility: [facility] Address: [address] [place], [place] [address] Performed By: #### 2 4323-8, , 2730-11 ####[facility] LABCLIA [id number] [place] [address] [place] CO2 [Moles/Vol] 24 mmol/L Normal 22-30 [facility] Comment on above: Order Comment: Speci men Type: BLOOD SPECIMENOrdering Facility: [facility] Address: [address] [place], [place] [address] Performed By: #### 2 4323-8, , 2730-11 ####[facility] LABCLIA [id number] [address] [address] [place] Creatinine [Mass/Vol] 0.66 mg/dL Normal 0.58-0.96 [facility] Comment on above: Order Comment: Speci men Type: BLOOD SPECIMENOrdering Facility: [facility] Address: [address] [place] [address] Performed By: #### 2 4323-8, 80094-5, 2730-11 ####[facility] LABCLIA [id number] [place] [address] [place] Creatinine and Glomerular filtration rate.predicted panel (S/P/Bld) 92 mL/min/1.73m??? Normal >=60 [facility] Comment on above: Order Comment: Ayaz jansen Type: BLOOD SPECIMENOrdering Facility: [facility] Address: [address] [place] [address] Result Comment: Jaye mated Glomerular Filtration Rate (eGFR) is calculated using the 2020 CKD-EPI creatinine equation. This equation utilizes serum creatinine, sex, and age as parameters. The creatinine assay has traceable calibration to isotope dilution-mass spectrometry. Refer to KDIGO guidelines for clinical interpretation. In patients with unstable renal function, e.g. those with acute kidney injury, the eGFR may not accurately reflect actual GFR. Performed By: #### 2 4323-8, 71445-1, 2730-11 ####[facility] LABCLIA [id number] [place] [address] [place] Glucose [Mass/Vol] 77 mg/dL Normal 74-99 [facility] Comment on above: Order Comment: Ayaz jansen Type: BLOOD SPECIMENOrdering Facility: [facility] Address: [address] [place] [address] Result Comment: The [place] Diabetes Association (ADA) provides guidance for cutoff values for fasting glucose and random glucose. The ADA defines fasting as no caloric intake for at least 8 hours. Fasting plasma glucose results between 100 to 125 mg/dL indicate increased risk for diabetes (prediabetes). Fasting plasma glucose results greater than or equal to 126 mg/dL meet the criteria for diagnosis of diabetes. In the absence of unequivocal hyperglycemia, results should be confirmed by repeat testing. In a patient with classic symptoms of hyperglycemia or hyperglycemic crisis, random plasma glucose results greater than or equal to 200 mg/dL meet the criteria for diagnosis of diabetes. Reference: Standards of Medical Care in Diabetes 2016, [place] Diabetes Association. Diabetes Care. 2016.39(Suppl 1). Performed By: #### 2 4323-8, 73489-9, 2730-11 ####[facility] LABCLIA [id number] [address] [address] [place] Potassium [Moles/Vol] 4.5 mmol/L Normal 3.7-5.1 [facility] Comment on above: Order Comment: Speci men Type: BLOOD SPECIMENOrdering Facility: [facility] Address: [address] [place] [address] Performed By: #### 2 4323-8, 25901-7, 2730-11 ####[facility] LABCLIA [id number] [place] [address] [place] Protein [Mass/Vol] 6.8 g/dL Normal 6.3-8.0 [facility] Comment on above: Order Comment: Speci men Type: BLOOD SPECIMENOrdering Facility: [facility] Address: [address] [place] [address] Performed By: #### 2 4323-8, 07084-9, 2730-11 ####[facility] LABIA [id number] [place] [address] [place] Sodium [Moles/Vol] 136 mmol/L Normal 136-144 [facility] Comment on above: Order Comment: Speci men Type: BLOOD SPECIMENOrdering Facility: [facility] Address: [address] [place] [address] Performed By: #### 2 4323-8, 35969-6, 2730-11 ####[facility] LABCLIA [id number] [address] [address] [place] Urea nitrogen [Mass/Vol] 15 mg/dL Normal 7-21 [facility] Comment on above: Order Comment: Speci men Type: BLOOD SPECIMENOrdering Facility: [facility] Address: [address] [place] [address] Performed By: #### 2 4323-8, 10489-5, 2731-8 ####[facility] LABCLIA [id number] [place] [address] [place] HbA1c (Bld)on 02-09-2024 Average glucose Estimated from glycated hemoglobin (Bld) [Mass/Vol] 128 mg/dL Normal [facility] Comment on above: Order Comment: Speci men Type: URINE SPECIMEN Ordering Facility: [facility] Address: [address] [place] [address] Result Comment: eAG: (Estimated average glucose) is a calculated value from HgbA1c and is account retention representative of the average blood glucose level in the last 2-3 month period. Performed By: #### 2 956-1 #### [facility] CLIA [id number] [address] [place] [address] STATES [facility] [id number] [address] [place] [address] [place] HbA1c (Bld) [Mass fraction] 6.1 % High 4.3-5.6 [facility] Comment on above: Order Comment: Speci men Type: URINE SPECIMEN Ordering Facility: [facility] Address: [address] [place] [address] Result Comment: [place] Diabetes Association guidelines indicate that patients with HgbA1c in the range 5.7-6.4% are at increased risk for development of diabetes, and intervention by lifestyle modification may be beneficial. HgbA1c greater or equal to 6.5% is considered diagnostic of diabetes. Performed By: #### 2 956-1 #### [facility] CLIA [id number] [address] [place] [address] STATES [place] [facility] [id number] [address] [place] [address] [place] Lipid 1996 panelon 4 Cholesterol [Mass/Vol] 155 mg/dL Normal <200 [facility] Comment on above: Order Comment: Speci men Type: BLOOD SPECIMENOrdering Facility: [facility] Address: [address] [place] [address] Result Comment: <200 mg/dL, Desirable 200-239 mg/dL, Borderline high >239 mg/dL, High Performed By: #### 2 4323-8, 72056-1, 2730-11 ####[facility] LABCLIA [id number] [address] [address] [place] Cholesterol in HDL [Mass/Vol] 35 mg/dL Low >39 [facility] Comment on above: Order Comment: Speci men Type: BLOOD SPECIMENOrdering Facility: [facility] Address: [address] [place] [address] Result Comment: 40-5 9 mg/dL, Acceptable >59 mg/dL, High: Negative risk factor for coronary heart disease <40 mg/dL, Low: Positive risk factor for coronary heart disease Performed By: #### 2 4323-8, 43949-4, 2730-11 ####[facility] LABCLIA [id number] [address] [address] [place] Cholesterol in LDL [Mass/Vol] 84 mg/dL Normal <100 [facility] Comment on above: Order Comment: Speci men Type: BLOOD SPECIMENOrdering Facility: [facility] Address: [address] [place] [address] Result Comment: <100 mg/dL, Optimal 100-129 mg/dL, Near optimal/above optimal 130-159 mg/dL, Borderline high 160-189 mg/dL, High >189 mg/dL, Very high Secondary prevention optimal LDL Cholesterol levels are recommended to be < 70 mg/dL Performed By: #### 2 4323-8, 08715-6, 2730-11 ####[facility] LABCLIA [id number] [address] [address] [place] Cholesterol in LDL/Cholesterol in HDL [Mass ratio] 2.40 {ratio} Normal <2.54 [facility] Comment on above: Order Comment: Speci men Type: BLOOD SPECIMENOrdering Facility: [facility] Address: [address] [place] [address] Result Comment: Nba mace: 1. National Cholesterol Education Program ATP III Guideline At-A-Glance Quick Desk Reference: National Heart, Lung, and Blood [place]. National Institutes of Health. 2001: NIH Publication No. 01-3305. 2. An International Atherosclerosis Society position paper: global recommendations for the management of dyslipidemia: executive summary, Atherosclerosis. 2014: 232(2):410-413. Performed By: #### 2 4323-8, 23436-0, 2730-11 ####[facility] LABCLIA [id number] [place] [address] [place] Cholesterol in VLDL [Mass/Vol] 36 mg/dL High <30 [facility] Comment on above: Order Comment: Speci men Type: BLOOD SPECIMENOrdering Facility: [facility] Address: [address] [place] [address] Performed By: #### 2 4323-8, 06971-9, 2730-11 ####[facility] LABCLIA [id number] [place] [address] [place] Cholesterol non HDL [Mass/Vol] 120 mg/dL Normal <130 [facility] Comment on above: Order Comment: Speci men Type: BLOOD SPECIMENOrdering Facility: [facility] Address: [address] [place] [address] Result Comment: <130 mg/dL, Optimal 130-159 mg/dL, Near optimal/above optimal 160-189 mg/dL, Borderline high 190-219 mg/dL, High >219 mg/dL, Very high Secondary prevention optimal non HDL Cholesterol levels are recommended to be <100 mg/dL Performed By: #### 2 4323-8, 53786-5, 2730-11 ####[facility] LABCLIA [id number] [address] [address] [place] Cholesterol.total/Chol esterol in HDL [Mass ratio] 4.43 {ratio} Normal <5.10 [facility] Comment on above: Order Comment: Speci men Type: BLOOD SPECIMENOrdering Facility: [facility] Address: [address] [place] [address] Performed By: #### 2 4323-8, 18294-7, 2730-11 ####[facility] LABCLIA [id number] [place] [address] [place] FASTING TIME 6 hrs Normal [facility] Comment on above: Order Comment: Speci men Type: BLOOD SPECIMENOrdering Facility: [facility] Address: [address] [place] [address] Performed By: #### 2 4323-8, , 2730-11 ####[facility] LABCLIA [id number] [place] [address] [place] Triglyceride [Mass/Vol] 178 mg/dL High <150 [facility] Comment on above: Order Comment: Speci men Type: BLOOD SPECIMENOrdering Facility: [facility] Address: [address] [place] [address] Result Comment: <150 mg/dL, Normal 150-199 mg/dL, Borderline high 200-499 mg/dL, High >499 mg/dL, Very high Performed By: #### 2 4323-8, , 2730-11 ####[facility] LABCLIA [id number] [place] [address] [place] PTH-Intact [facility] 10-2 Parathyrin.intact [Mass/Vol] 71 pg/mL High 15-65 [facility] Comment on above: Order Comment: Speci men Type: BLOOD SPECIMENOrdering Facility: [facility] Address: [address] [place] [address] Performed By: #### 2 4323-8, , 2730-11 ####[facility] LABCLIA [id number] [place] [address] [place] Urinalysis complete panel (U )on 02-09-2024 Bacteria LM.HPF (Urine sed) [#/Area] Negative Normal Negative [facility] Comment on above: Order Comment: Speci men Type: URINE SPECIMENOrdering Facility: [facility] Address: [facility] [place] [address] Performed By: #### 2 4356-8 ####[facility] LABCLIA [id number] [place] [address] [place] Bilirubin Ql (U) Negative Normal Negative [facility] Comment on above: Order Comment: Speci men Type: URINE SPECIMENOrdering Facility: [facility] Address: [address] [place] [address] Performed By: #### 2 4356-8 ####[facility] LABCLIA [id number] [place] [address] [place] Clarity (Unsp spec) Clear Normal Clear [facility] Comment on above: Order Comment: Speci men Type: URINE SPECIMENOrdering Facility: [facility] Address: [address] [place] [address] Performed By: #### 2 4356-8 ####[facility] LABCLIA [id number] [place] [address] [place] Color (U) Yellow Normal Yellow [facility] Comment on above: Order Comment: Speci men Type: URINE SPECIMENOrdering Facility: [facility] Address: [address] [place] [address] Performed By: #### 2 4356-8 ####[facility] LABCLIA [id number] [place] [address] [place] Epithelial cells LM.HPF (Urine sed) [#/Area] Few Normal [facility] Comment on above: Order Comment: Speci men Type: URINE SPECIMENOrdering Facility: [facility] Address: [address] [place] [address] Performed By: #### 2 4356-8 ####[facility] LABCLIA [id number] [address] [id number] [address] [place] Glucose Test strip (U) [Mass/Vol] Negative Normal Negative [facility] Comment on above: Order Comment: Speci men Type: URINE SPECIMENOrdering Facility: [facility] Address: [address] [place] [address] Performed By: #### 2 4356-8 ####[facility] LABCLIA [id number] [place] [address] [place] Hemoglobin Ql (U) Negative Normal Negative [facility] Comment on above: Order Comment: Speci men Type: URINE SPECIMENOrdering Facility: [facility] Address: [address] [place] [address] Performed By: #### 2 4356-8 ####[facility] LABCLIA [id number] [place] [address] [place] Hyaline casts (Urine sed) [#/Area] 0 /[LPF] Normal 0 /LPF [facility] Comment on above: Order Comment: Speci men Type: URINE SPECIMENOrdering Facility: [facility] Address: [address] [place] [address] Performed By: #### 2 4356-8 ####[facility] LABCLIA [id number] [place] [address] [place] Ketones Ql (U) Negative Normal Negative [facility] Comment on above: Order Comment: Speci men Type: URINE SPECIMENOrdering Facility: [facility] Address: [address] [place] [address] Performed By: #### 2 4356-8 ####[facility] LABCLIA [id number] [place] [address] [place] Leukocyte esterase Test strip Ql (U) Trace Abnormal Negative [facility] Comment on above: Order Comment: Speci men Type: URINE SPECIMENOrdering Facility: [facility] Address: [address] [place] [address] Performed By: #### 2 4356-8 ####[facility] LABCLIA [id number] [place] [address] [place] Nitrite Ql (U) Negative Normal Negative [facility] Comment on above: Order Comment: Speci men Type: URINE SPECIMENOrdering Facility: [facility] Address: [address] [place] [address] Performed By: #### 2 4356-8 ####[facility] LABCLIA [id number] [place] [address] [place] pH (U) 7.5 [pH] Normal <8.5 [facility] Comment on above: Order Comment: Speci men Type: URINE SPECIMENOrdering Facility: [facility] Address: [address] [place] [address] Performed By: #### 2 4356-8 ####[facility] LABIA [id number] [place] [address] [place] Protein (U) [Mass/Vol] Negative Normal Negative [facility] Comment on above: Order Comment: Speci men Type: URINE SPECIMENOrdering Facility: [facility] Address: [address] [place] [address] Performed By: #### 2 4356-8 ####[facility] [facility] [id number] [place] [address] [place] RBC LM.HPF (Urine sed) [#/Area] 0-2 /HPF Normal 0-2 /HPF [facility] Comment on above: Order Comment: Speci men Type: URINE SPECIMENOrdering Facility: [facility] Address: [address] [place] [address] Performed By: #### 2 4356-8 ####[facility] LABIA [id number] [place] [address] [place] Specific gravity (U) [Rel density] 1.006 Normal 1.005-1.030 [facility] Comment on above: Order Comment: Speci men Type: URINE SPECIMENOrdering Facility: [facility] Address: [address] [place] [address] Performed By: #### 2 4356-8 ####[facility] [id number] [place] [address] [place] Urobilinogen Ql (U) 0.2 EU/dL Normal 0.2-1.0 EU/dL [facility] Comment on above: Order Comment: Speci men Type: URINE SPECIMENOrdering Facility: [facility] Address: [address] [place] [address] Performed By: #### 2 4356-8 ####[facility] [id number] [place] [address] [place] WBC LM.HPF (Urine sed) [#/Area] 0-5 /HPF Normal 0-5 /HPF [facility] Comment on above: Order Comment: Speci men Type: URINE SPECIMENOrdering Facility: [facility] Address: [address] [place] [address] Performed By: #### 2 4356-8 ####[facility] [id number] [place] [address] [place] Donna 02-08-2024 CNPN Telephone (INTMWS) -------- JENNI ALBRIGHT ([id number]) 1950 F Date Time Provider Department 02/08/24 ZAIRA SARKAR INTDonWS During your visit today, we recorded the following information about you: Shara Oneil MA 02/08/2024 12:57 PM Signed ----- Message from Zaira Sarkar APRN.CHILDB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 sent at 02/08/2024 12:29 PM EDT ----- Please let the patient know the urinalysis did not clearly indicate infection. How are her symptoms? Zaira Sarkar APRN.Shara Ty MA 02/08/2024 1:27 PM Signed Message left for pt to call back for results. Cleopatra Garcia MA, LPN 02/08/2024 2:42 PM Signed Spoke with pt and information listed below given. Pt verbalizes understanding. Pt reports symptoms have cleared up. Pt will let us know if this changes. RONALDO Garsia Naz M, APRN.[place] 02/08/2024 2:43 PM Signed Since there was blood in the urine without clear evidence of infection recommend rechecking urinalysis and if it persists she will need to see urology Zaira Sarkar APRN.Shara Ty MA 02/08/2024 2:48 PM Signed Pt notified and voiced understanding. Shara Oneil MA Allergies As of Date: 02/08/2024 Noted Allergy Reaction GLATIRAMER 07/20/2018 9 - Itching 2 - Rash Date Reviewed: 02/03/2024 Reviewed by: Eula Cedeño MA - Fully Assessed Reason for Visit: Results [95] Primary Visit Diagnosis:Hematuria, unspecified type [R31.9] Order(s):URINALYSIS, WITH MICROSCOPIC [SQUAWMIC] Order #: [id number] FUTURE URINE CULTURE [SQURCUL] Order #: [id number] FUTURE Prescriptions as of 02/08/2024 - nitrofurantoin monohydrate and macrocrystal (MACROBID) 100 mg capsule Take 1 capsule by mouth two times a day with meals for 7 days. - pravastatin (PRAVACHOL) 40 mg tablet Take 1 tablet by mouth daily at bedtime. - losartan (COZAAR) 50 mg tablet Take 1 tablet by mouth once daily. - spironolactone (ALDACTONE) 25 mg tablet Take 1 tablet by mouth once daily. - magnesium oxide (MAGOX) 400 mg (241.3 mg magnesium) tablet Take 1 tablet by mouth two times a day. - apixaban (ELIQUIS) 5 mg tab(s) Take 1 tablet by mouth two times a day. - carvedilol (COREG) 25 mg tablet Take 0.5 tablets by mouth two times a day. - esomeprazole (NEXIUM) 40 mg capsule Take 1 capsule by mouth daily before breakfast. 1/2 hr before meal. - fenofibrate nanocrystallized (TRICOR) 145 mg tablet Take 1 tablet by mouth once daily. - DULoxetine (CYMBALTA) 30 mg capsule take 1 capsule by mouth every day in the evening - DULoxetine (CYMBALTA) 60 mg capsule - VUMERITY 231 mg capsule, delayed release Twice daily-Dr. Clemente - dimethyl fumarate (TECFIDERA) [address] Take 1 capsule by mouth twice daily. - SYMBICORT 160-4.5 mcg/actuation inhaler Inhale 2 Puffs as instructed twice daily as needed. - gabapentin (NEURONTIN) 800 mg tablet Take 1 tablet by mouth four times daily. - ALBUTEROL SULFATE HFA INHALATION Inhale as instructed. - baclofen (LIORESAL) 20 mg tablet Take by mouth three times daily as needed. 1 in am, 1in afternoon and 2 at bedtime - COMPOUNDED PRESCRIPTION One pair of shoes to fit over leg brace. Dx: G35; M79.2 - nitroglycerin sublingual (NITROQUICK) 0.4 mg SL tablet Dissolve 1 tablet under the tongue every 5 minutes as needed for Chest Pain. - multivitamin (MULTIPLE VITAMINS) tablet Take 1 tablet by mouth once daily. - aspirin, enteric coated (ASPIRIN, ENTERIC COATED) 81 mg EC tablet Take 81 mg by mouth once daily. - ferrous sulfate 325 mg (65 mg iron) tablet Take 325 mg by mouth daily with breakfast. Meds Comments as of 02/08/2021: OTC Cranberry and Vitamin C. Problem List As Of Date 02/08/2024 Noted Resolved Multiple sclerosis [G35] Neuropathic pain [M79.2] Hyperlipidemia [E78.5] GERD (gastroesophageal reflux disease) [K21.9] Vitamin D deficiency [E55.9] Back pain [M54.9] REBECCA (obstructive sleep apnea) [G47.33] Iron deficiency anemia [D50.9] History of rectal polypectomy [Z98.890, Z87.19] 07/13/2011 CAD (coronary artery disease) [I25.10] 07/12/2013 Pulmonary embolism (HCC) [I26.99] 07/12/2013 Essential hypertension [I10] 12/21/2014 Cardiac pacemaker [Z95.0] 09/14/2015 History of DVT (deep vein thrombosis) [Z86.718] 09/14/2015 Positive occult stool blood test [R19.5] 05/04/2018 Spastic hemiplegia, unspecified etiology, unspe*08/19/2022 Morbid obesity (HCC) [E66.01] 08/19/2022 Congestive heart failure, unspecified HF chroni*08/19/2022 PAF (paroxysmal atrial fibrillation) (HCC) [I48*08/19/2022 Abnormal result of other cardiovascular functio*11/22/2014 Diagnosed: 11/10/2022 Biventricular implantable cardioverter-defibril* Diagnosed: 11/10/2022 Calf pain [M79.669] 2021 Diagnosed: 11/10/2022 Cervico-occipital neuralgia [M54.81] 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 Normal [facility] Urinalysis complete panel (U )on 02-04-2024 BACTERIA UL >9821 High Negative [facility] Comment on above: Order Comment: Speci men Type: URINE SPECIMENOrdering Facility: [facility] Address: [address] [place] [address] Performed By: #### 2 4356-8 ####[facility] LABCLIA [id number] [place] [address] [place] Bilirubin Ql (U) 1+ Abnormal Negative [facility] Comment on above: Order Comment: Speci men Type: URINE SPECIMENOrdering Facility: [facility] Address: [address] [place] [address] Result Comment: Sugg est correlation with clinical findings and serum bilirubin if clinically indicated. Performed By: #### 2 4356-8 ####[facility] LABCLIA [id number] [place] [address] [place] CALCIUM OXALATE CRYSTALS (UA) Moderate Abnormal None Seen [facility] Comment on above: Order Comment: Speci men Type: URINE SPECIMENOrdering Facility: [facility] Address: [facility] [place] [address] Performed By: #### 2 4356-8 ####[facility] LABCLIA [id number] [place] [address] [place] Clarity (Unsp spec) Cloudy Abnormal Clear [facility] Comment on above: Order Comment: Speci men Type: URINE SPECIMENOrdering Facility: [facility] Address: [address] [place] [address] Performed By: #### 2 4356-8 ####[facility] LABCLIA [id number] [place] [address] [place] Color (U) Dark Yellow Abnormal Yellow [facility] Comment on above: Order Comment: Speci men Type: URINE SPECIMENOrdering Facility: [facility] Address: [address] [place] [address] Performed By: #### 2 4356-8 ####[facility] LABCLIA [id number] [place] [address] [place] Epithelial cells LM.HPF (Urine sed) [#/Area] Few Normal [facility] Comment on above: Order Comment: Speci men Type: URINE SPECIMENOrdering Facility: [facility] Address: [address] [place] [address] Result Comment: Few Performed By: #### 2 4356-8 ####[facility] LABCLIA [id number] [place] [address] [place] Glucose Test strip (U) [Mass/Vol] Negative Normal Negative [facility] Comment on above: Order Comment: Speci men Type: URINE SPECIMENOrdering Facility: [facility] Address: [address] [place] [address] Performed By: #### 2 4356-8 ####[facility] LABCLIA [id number] [place] [address] [place] Hemoglobin Ql (U) Negative Normal Negative [facility] Comment on above: Order Comment: Speci men Type: URINE SPECIMENOrdering Facility: [facility] Address: [address] [place] [address] Performed By: #### 2 4356-8 ####[facility] LABCLIA [id number] [place] [address] [place] Hyaline casts (Urine sed) [#/Area] 4-10 /LPF Abnormal 0 /LPF [facility] Comment on above: Order Comment: Speci men Type: URINE SPECIMENOrdering Facility: [facility] Address: [address] [place] [address] Performed By: #### 2 4356-8 ####[facility] LABCLIA [id number] [place] [address] [place] Ketones Ql (U) Trace Abnormal Negative [facility] Comment on above: Order Comment: Speci men Type: URINE SPECIMENOrdering Facility: [facility] Address: [address] [place] [address] Performed By: #### 2 4356-8 ####[facility] LABCLIA [id number] [place] [address] [place] Leukocyte esterase Test strip Ql (U) 2+ Abnormal Negative [facility] Comment on above: Order Comment: Speci men Type: URINE SPECIMENOrdering Facility: [facility] Address: [address] [place] [address] Performed By: #### 2 4356-8 ####[facility] LABCLIA [id number] [place] [address] [place] Nitrite Ql (U) Positive Abnormal Negative [facility] Comment on above: Order Comment: Speci men Type: URINE SPECIMENOrdering Facility: [facility] Address: [address] [place] [address] Performed By: #### 2 4356-8 ####[facility] LABCLIA [id number] [place] [address] [place] pH (U) 6.0 [pH] Normal <8.5 [facility] Comment on above: Order Comment: Speci men Type: URINE SPECIMENOrdering Facility: [facility] Address: [address] [place] [address] Performed By: #### 2 4356-8 ####[facility] LABIA [id number] [place] [address] [place] Protein (U) [Mass/Vol] Negative Normal Negative [facility] Comment on above: Order Comment: Speci men Type: URINE SPECIMENOrdering Facility: [facility] Address: [address] [place] [address] Performed By: #### 2 4356-8 ####[facility] LABIA [id number] [place] [address] [place] RBC LM.HPF (Urine sed) [#/Area] 6-10 /HPF Abnormal 0-2 /HPF [facility] Comment on above: Order Comment: Speci men Type: URINE SPECIMENOrdering Facility: [facility] Address: [address] [place] [address] Performed By: #### 2 4356-8 ####[facility] LABIA [id number] [place] [address] [place] Specific gravity (U) [Rel density] 1.022 Normal 1.005-1.030 [facility] Comment on above: Order Comment: Speci men Type: URINE SPECIMENOrdering Facility: [facility] Address: [address] [place] [address] Performed By: #### 2 4356-8 ####[facility] LABIA [id number] [place] [address] [place] Urobilinogen Ql (U) 1.0 EU/dL Normal 0.2-1.0 EU/dL [facility] Comment on above: Order Comment: Speci men Type: URINE SPECIMENOrdering Facility: [facility] Address: [address] [place] [address] Performed By: #### 2 4356-8 ####[facility] LABIA [id number] [place] [address] [place] WBC LM.HPF (Urine sed) [#/Area] 6-10 /HPF Abnormal 0-5 /HPF [facility] Comment on above: Order Comment: Speci men Type: URINE SPECIMENOrdering Facility: [facility] Address: [address] [place] [address] Performed By: #### 2 4356-8 ####[facility] LABIA [id number] [place] [address] [place] CNOVon 02-03-2024 CNOV Office Visit (FRWS ) -------- JENNI ALBRIGHT ([id number]) 1950 F Date Time Provider Department 02/03/24 2:00 PM EJ RODRIGUEZ V [facility] During your visit today, we recorded the following information about you: Eula Cedeño MA 02/03/2024 2:08 PM Signed Patient presents with: 10 months post visit Left shoulder pain with injection given AMB ROOMING INTAKE FLOWSHEET DATA Pain Pain Level: 7 Pain Location: Shoulder-Left Description: Sharp Duration Amount of Time: (Ongoing) Frequency: Continuous Intervention/Comfort measure: Medication Patient states injection helped for about a month. Taking Tylenol when she is unable to tolerate the pain. She would like to discuss referral for surgery Ej Rodriguez V, DO 02/03/2024 2:08 PM Signed SERVICE DATE: February 03, 2024 PCP: Edmundo Cruz MD Subjective Patient ID: Jenni is a 73 year old female. Chief Complaint: Patient presents with: 10 months post visit Left shoulder pain with injection given PAIN EVALUATION 02/03/2024 1343 Pain Level: 7 Pain Location: Shoulder-Left Description: Sharp Duration Amount of Time: -- Ongoing Frequency: Continuous Intervention/Comfort measure: Medication HPI Patient presents today for follow-up of chronic left shoulder pain/osteoarthritis. She was last seen here 10 months ago. At that time she received a corticosteroid injection to the shoulder and physical therapy. She states the injection helped for about a month and the therapy did not seem to help much at all. She continues to have significant pain and motion restriction in the shoulder. She would like referred for surgical consultation, but would like to stay within the area due to travel issues. Review of Systems ACTIVE PROBLEM LIST Multiple Sclerosis (Hcc) Neuropathic Pain Hyperlipidemia Gerd (Gastroesophageal Reflux Disease) Vitamin D Deficiency Back Pain Rebecca (Obstructive Sleep Apnea) Iron Deficiency Anemia History of Rectal Polypectomy Cad (Coronary Artery Disease) Pulmonary Embolism (Hcc) Essential Hypertension Cardiac Pacemaker History of Dvt (Deep Vein Thrombosis) Positive Occult Stool Blood Test Spastic Hemiplegia, Unspecified Etiology, Unspecified Laterality (Hcc) Morbid Obesity (Hcc) Congestive Heart Failure, Unspecified Hf Chronicity, Unspecified Heart Failure Type ([facility]) Paf (Paroxysmal Atrial Fibrillation) ([facility]) Abnormal Result of Other Cardiovascular Function Study Biventricular Implantable Cardioverter-Defibrillat or (Icd) in Situ Calf Pain Cervico-Occipital Neuralgia Fci Current Use of Anticoagulant Therapy Delirium Dysphagia Dyspnea On Exertion Fatigue 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 Das - [place] CATARACT EXTRACTION HX Left 04/16/2017 Dr. Das COLONOSCOPY 08/01/2011 5mm rectal polyp COLONOSCOPY 12/05/2015 rectal polyp (adenoma) and diverticulosis EGD 07/17/2011 sliding hiatal hernia ENDOSCOPY PROC 11/19/15 Dr. Lema- HEART CATHETERIZATION ? HYSTERECTOMY HX 1982 PACEMAKER ROTATOR CUFF REPAIR right FAMILY HISTORY Problem Relation Age of Onset Cancer Father Diabetes Mother Coronary Artery Disease Mother NE's Coronary Artery Disease Brother 2 brothers CABG Aneurysm Brother Heart Sister NE's, valve replaced Stroke Sister Ovarian cancer Sister Multiple Sclerosis Sister Hypertension Sister Social History Tobacco Use Smoking status: Former Current packs/day: 1.00 Average packs/day: 1 pack/day for 20.0 years (20.0 ttl pk-yrs) Types: Cigarettes Smokeless tobacco: Never Tobacco comments: Quit around 1995 Vaping Use Vaping status: Never Used Substance Use Topics Alcohol use: Yes Comment: occ Drug (more content not included)... Normal [facility] CNOV Office Visit (INTMWS ) -------- ARIAJENNI ([id number]) 1950 F Date Time Provider Department 02/03/24 12:40 PM ZAIRA SARKAR INTMWS During your visit today, we recorded the following information about you: Pulse Respiration Blood pressure 91/minute 14/minute 136/82 Zaira Sarkar, CHIEF YEOMAN.CHILDB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 02/03/2024 1:13 PM Signed CC: Patient presents with: UTI: Frequency, odor, cloudy x 1 week HPI Jennisade Albright is a 73 year old female who presents with complaint of possible UTI. These symptoms have been present for seven days. Associated symptoms: urgency, frequency, foul smelling urine, pressure, and pelvic pain Denies: burning, hematuria, fever, chills, sweats, nausea, vomiting, frequent UTI's, malaise, decreased appetite, confusion, disorientation Treatments: increasing her fluids Review of Systems See HPI PAST MEDICAL HISTORY Diagnosis Date Back pain [...] Pulmonary embolism (HCC) 07/2013 during hospitalization for [place] Vitamin D deficiency PAST SURGICAL HISTORY Procedure Laterality Date CABG, ARTERIAL, TWO 07/22/13 THURMAN to LAD and Dx CARPAL TUNNEL CATARACT EXTRACTION HX Right 03/23/2017 Dr. Das - [place] CATARACT EXTRACTION HX Left 04/16/2017 Dr. Das COLONOSCOPY 08/01/2011 5mm rectal polyp COLONOSCOPY 12/05/2015 rectal polyp (adenoma) and diverticulosis EGD 07/17/2011 sliding hiatal hernia ENDOSCOPY PROC 11/19/15 Dr. Lema- HEART CATHETERIZATION ?1980s HYSTERECTOMY HX 1982 PACEMAKER ROTATOR CUFF REPAIR right ALLERGIES Glatiramer MEDICATIONS pravastatin (PRAVACHOL) 40 mg tablet Take 1 tablet by mouth daily at bedtime. losartan (COZAAR) 50 mg tablet Take 1 tablet by mouth once daily. spironolactone (ALDACTONE) 25 mg tablet Take 1 tablet by mouth once daily. magnesium oxide (MAGOX) 400 mg (241.3 mg magnesium) tablet Take 1 tablet by mouth two times a day. apixaban (ELIQUIS) 5 mg tab(s) Take 1 tablet by mouth two times a day. carvedilol (COREG) 25 mg tablet Take 0.5 tablets by mouth two times a day. esomeprazole (NEXIUM) 40 mg capsule Take 1 capsule by mouth daily before breakfast. 1/2 hr before meal. fenofibrate nanocrystallized (TRICOR) 145 mg tablet Take 1 tablet by mouth once daily. DULoxetine (CYMBALTA) 30 mg capsule take 1 capsule by mouth every day in the evening DULoxetine (CYMBALTA) 60 mg capsule VUMERITY 231 mg capsule, delayed release Twice [...] 325 mg by mouth daily with breakfast. FAMILY HISTORY Problem Relation Age of Onset Cancer Father Diabetes Mother Coronary Artery Disease Mother NE's Coronary Artery Disease Brother 2 brothers CABG Aneurysm Brother Heart Sister NE's, valve replaced Stroke Sister Ovarian cancer Sister Multiple Sclerosis Sister Hypertension Sister Social History Tobacco Use Smoking status: Former Current packs/day: 1.00 Average packs/day: 1 pack/day for 20.0 years (20.0 ttl pk-yrs) Types: Cigarettes Smokeless tobacco: Never Tobacco comments: Quit around 1995 Vaping Use Vaping status: Never Used Substance Use Topics Alcohol use: Yes Comment: occ Drug use: Never BP 136/82 Pulse 91 Resp 14 SpO2 95% Physical Exam Vitals reviewed. Constitutional: General: She is not in acute distress. Appearance: She is not ill-appearing or toxic-appearing. Cardiovascular: Rate and Rhythm: Normal rate and regular rhythm. Heart sounds: Normal heart sounds. Pulmonary: Effort: Pulmonary effort is normal. Breath sounds: Normal breath sounds. No wheezing, rhonchi or rales. Abdominal: General: Bowel sounds a (more content not included)... [facility] Telephone (FAMPWS) -------- ARIAJENNI M ([id number]) 1950 F Date Time Provider Department 02/02/24 EDMUNDO CRUZ During your visit today, we recorded the following information about you: Cleopatra Tabor LPN 02/02/2024 4:04 PM Addendum Pt calls and states the following: URINARY SYMPTOMS. Requesting an apt 02-03-24. SYMPTOMS: frequency, odor, cloudy ONSET: 1 week ago PAIN: no CAUSE: unknown OTHER SYMPTOMS: itchy DENIES: burning Pt's provider/team/department not available. Scheduled for apt with provider. Pt had time restrictions. Has apt at 2 pm with another provider. Cleopatra Tabor LPN Allergies As of Date: 02/02/2024 Noted Allergy Reaction GLATIRAMER 07/20/2018 9 - Itching 2 - Rash Date Reviewed: 12/09/2023 Reviewed by: Maggie Johns MA - Fully Assessed Reason for Visit: Future Appointment [256] Prescriptions as of 02/02/2024 - pravastatin (PRAVACHOL) 40 mg tablet Take 1 tablet by mouth daily at bedtime. - losartan (COZAAR) 50 mg tablet Take 1 tablet by mouth once daily. - spironolactone (ALDACTONE) 25 mg tablet Take 1 tablet by mouth once daily. - magnesium oxide (MAGOX) 400 mg (241.3 mg magnesium) tablet Take 1 tablet by mouth two times a day. - apixaban (ELIQUIS) 5 mg tab(s) Take 1 tablet by mouth two times a day. - carvedilol (COREG) 25 mg tablet Take 0.5 tablets by mouth two times a day. - esomeprazole (NEXIUM) 40 mg capsule Take 1 capsule by mouth daily before breakfast. 1/2 hr before meal. - fenofibrate nanocrystallized (TRICOR) 145 mg tablet Take 1 tablet by mouth once daily. - DULoxetine (CYMBALTA) 30 mg capsule take 1 capsule by mouth every day in the evening - DULoxetine (CYMBALTA) 60 mg capsule - VUMERITY 231 mg capsule, delayed release Twice daily-Dr. Clemente - dimethyl fumarate (TECFIDERA) [address] Take 1 capsule by mouth twice daily. - SYMBICORT 160-4.5 mcg/actuation inhaler Inhale 2 Puffs as instructed twice daily as needed. - gabapentin (NEURONTIN) 800 mg tablet Take 1 tablet by mouth four times daily. - ALBUTEROL SULFATE HFA INHALATION Inhale as instructed. - baclofen (LIORESAL) 20 mg tablet Take by mouth three times daily as needed. 1 in am, 1in afternoon and 2 at bedtime - COMPOUNDED PRESCRIPTION One pair of shoes to fit over leg brace. Dx: G35; M79.2 - nitroglycerin sublingual (NITROQUICK) 0.4 mg SL tablet Dissolve 1 tablet under the tongue every 5 minutes as needed for Chest Pain. - multivitamin (MULTIPLE VITAMINS) tablet Take 1 tablet by mouth once daily. - aspirin, enteric coated (ASPIRIN, ENTERIC COATED) 81 mg EC tablet Take 81 mg by mouth once daily. - ferrous sulfate 325 mg (65 mg iron) tablet Take 325 mg by mouth daily with breakfast. Meds Comments as of 02/08/2021: OTC Cranberry and Vitamin C. Problem List As Of Date 02/02/2024 Noted Resolved Multiple sclerosis [G35] Neuropathic pain [M79.2] Hyperlipidemia [E78.5] GERD (gastroesophageal reflux disease) [K21.9] Vitamin D deficiency [E55.9] Back pain [M54.9] REBECCA (obstructive sleep apnea) [G47.33] Iron deficiency anemia [D50.9] History of rectal polypectomy [Z98.890, Z87.19] 07/13/2011 CAD (coronary artery disease) [I25.10] 07/12/2013 Pulmonary embolism (HCC) [I26.99] 07/12/2013 Essential hypertension [I10] 12/21/2014 Cardiac pacemaker [Z95.0] 09/14/2015 History of DVT (deep vein thrombosis) [Z86.718] 09/14/2015 Positive occult stool blood test [R19.5] 05/04/2018 Spastic hemiplegia, unspecified etiology, unspe*08/19/2022 Morbid obesity (HCC) [E66.01] 08/19/2022 Congestive heart failure, unspecified HF chroni*08/19/2022 PAF (paroxysmal atrial fibrillation) (HCC) [I48*08/19/2022 Abnormal result of other cardiovascular functio*11/22/2014 Diagnosed: 11/10/2022 Biventricular implantable cardioverter-defibril* Diagnosed: 11/10/2022 Calf pain [M79.669] 2021 Diagnosed: 11/10/2022 Cervico-occipital neuralgia [M54.81] 06/17/2016 Diagnosed: 11/10/2022 correction current use of anticoagulant therapy *11/10/2022 Diagnosed: 11/10/2022 Delirium [R41.0] 11/10/2022 Diagnosed: 11/10/2022 Dysphagia [R13.10] 01/09/2022 Diagnosed: 11/10/2022 Dyspnea on exertion [R06.09] 12/19/2021 Diagnosed: 11/10/2022 Fatigue [R53.83] 11/10/2022 Diagnosed: 11/10/2022 Hereditary peripheral neuropathy [G60.9] 09/23/2015 Diagnosed: 11/10/2022 Idiopathic peripheral neuropathy [G60.9] 07/18/2014 Diagnosed: 11/10/2022 Irritable bowel syndrome [K58.9] 11/10/2022 Diagnosed: 11/10/2022 Neuralgia [M79.2] 12/06/2013 Diagnosed: 11/10/2022 Neurogenic bladder [N31.9] 11/10/2022 Diagnosed: 11/10/2022 Pain in both lower legs [M79.661, M79.662] 11/10/2022 Diagnosed: 11/10/2022 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 Normal [facility] CNOVon 12-09-2023 CNOV Office Visit (CARMOB ) -------- ALBRIGHTJENNI ([id number]) 1950 F Date Time Provider Department 12/09/23 2:15 PM [facility] DIANE FITZPATRICK During your visit today, we recorded the following information about you: Allergies As of Date: 12/09/2023 Noted Allergy Reaction GLATIRAMER 07/20/2018 9 - Itching 2 - Rash Date Reviewed: 07/09/2023 Reviewed by: Sophia Castillo APRN.CHILDB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 - Fully Assessed Reason for Visit: Follow Up [171] Primary Visit Diagnosis:Congestive heart failure, unspecified HF chronicity, unspecified heart failure type (HCC) [I50.9] Prescriptions as of 12/09/2023 - losartan (COZAAR) 50 mg tablet Take 1 tablet by mouth once daily. - spironolactone (ALDACTONE) 25 mg tablet Take 1 tablet by mouth once daily. - magnesium oxide (MAGOX) 400 mg (241.3 mg magnesium) tablet Take 1 tablet by mouth two times a day. - apixaban (ELIQUIS) 5 mg tab(s) Take 1 tablet by mouth two times a day. - carvedilol (COREG) 25 mg tablet Take 0.5 tablets by mouth two times a day. - esomeprazole (NEXIUM) 40 mg capsule Take 1 capsule by mouth daily before breakfast. 1/2 hr before meal. - fenofibrate nanocrystallized (TRICOR) 145 mg tablet Take 1 tablet by mouth once daily. - DULoxetine (CYMBALTA) 30 mg capsule take 1 capsule by mouth every day in the evening - DULoxetine (CYMBALTA) 60 mg capsule - pravastatin (PRAVACHOL) 40 mg tablet Take 1 tablet by mouth daily at bedtime. - VUMERITY 231 mg capsule, delayed release Twice daily-Dr. Clemente - dimethyl fumarate (TECFIDERA) [address] Take 1 capsule by mouth twice daily. - SYMBICORT 160-4.5 mcg/actuation inhaler Inhale 2 Puffs as instructed twice daily as needed. - gabapentin (NEURONTIN) 800 mg tablet Take 1 tablet by mouth four times daily. - ALBUTEROL SULFATE HFA INHALATION Inhale as instructed. - baclofen (LIORESAL) 20 mg tablet Take by mouth three times daily as needed. 1 in am, 1in afternoon and 2 at bedtime - COMPOUNDED PRESCRIPTION One pair of shoes to fit over leg brace. Dx: G35; M79.2 - nitroglycerin sublingual (NITROQUICK) 0.4 mg SL tablet Dissolve 1 tablet under the tongue every 5 minutes as needed for Chest Pain. - multivitamin (MULTIPLE VITAMINS) tablet Take 1 tablet by mouth once daily. - aspirin, enteric coated (ASPIRIN, ENTERIC COATED) 81 mg EC tablet Take 81 mg by mouth once daily. - ferrous sulfate 325 mg (65 mg iron) tablet Take 325 mg by mouth daily with breakfast. Meds Comments as of 02/08/2021: OTC Cranberry and Vitamin C. Problem List As Of Date 12/09/2023 Noted Resolved Multiple sclerosis [G35] Neuropathic pain [M79.2] Hyperlipidemia [E78.5] GERD (gastroesophageal reflux disease) [K21.9] Vitamin D deficiency [E55.9] Back pain [M54.9] REBECCA (obstructive sleep apnea) [G47.33] Iron deficiency anemia [D50.9] History of rectal polypectomy [Z98.890, Z87.19] 07/13/2011 CAD (coronary artery disease) [I25.10] 07/12/2013 Pulmonary embolism (HCC) [I26.99] 07/12/2013 Essential hypertension [I10] 12/21/2014 Cardiac pacemaker [Z95.0] 09/14/2015 History of DVT (deep vein thrombosis) [Z86.718] 09/14/2015 Positive occult stool blood test [R19.5] 05/04/2018 Spastic hemiplegia, unspecified etiology, unspe*08/19/2022 Morbid obesity (HCC) [E66.01] 08/19/2022 Congestive heart failure, unspecified HF chroni*08/19/2022 PAF (paroxysmal atrial fibrillation) ([facility]) [I48*08/19/2022 Abnormal result of other cardiovascular functio*11/22/2014 Diagnosed: 11/10/2022 Biventricular implantable cardioverter-defibril* Diagnosed: 11/10/2022 Calf pain [M79.669] 2021 Diagnosed: 11/10/2022 Cervico-occipital neuralgia [M54.81] 06/17/2016 Diagnosed: 11/10/2022 correction current use of anticoagulant therapy *11/10/2022 Diagnosed: 11/10/2022 Delirium [R41.0] 11/10/2022 Diagnosed: 11/10/2022 Dysphagia [R13.10] 01/09/2022 Diagnosed: 11/10/2022 Dyspnea on exertion [R06.09] 12/19/2021 Diagnosed: 11/10/2022 Fatigue [R53.83] 11/10/2022 Diagnosed: 11/10/2022 Hereditary peripheral neuropathy [G60.9] 09/23/2015 Diagnosed: 11/10/2022 Idiopathic peripheral neuropathy [G60.9] 07/18/2014 Diagnosed: 11/10/2022 Irritable bowel syndrome [K58.9] 11/10/2022 Diagnosed: 11/10/2022 Neuralgia [M79.2] 12/06/2013 Diagnosed: 11/10/2022 Neurogenic bladder [N31.9] 11/10/2022 Diagnosed: 11/10/2022 Pain in both lower legs [M79.661, M79.662] 11/10/2022 Diagnosed: 11/10/2022 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 [facility] CNOV Office Visit (CARMOB ) -------- JENNI ALBRIGHT ([id number]) 1950 F Date Time Provider Department 12/09/23 2:00 PM DA DE LA ROSA During your visit today, we recorded the following information about you: Pulse Blood pressure Weight Height 76/minute 143/71 102.5 kg 1.575 m Da De La Rosa MD 12/09/2023 4:19 PM Signed [facility] OUTPATIENT VISIT DATE December 09, 2023 OUTPATIENT VISIT TYPE ESTABLISHED PRIMARY CARE PHYSICIAN: Edmundo Cruz MD CHIEF COMPLAINT: Established Patient Follow-Up (Jessie on 11-17-22 w Clara MCKEON) HISTORY OF PRESENT ILLNESS: Ms. Albright is a 73 year old female who presents today for a cardiovascular medicine follow-up visit. 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 Patient declines any chest pain. Her activities are limited due to multiple sclerosis, walks with a rollator. She denies dyspnea on exertion with routine ADL, palpitation, dizziness, or syncope. Patient has been following with Dr. Ayala, parts cleaner for dual-chamber pacemaker. No any bleeding issues with Eliquis. Device check today shows 1 episodes of nonsustained ventricular tachycardia lasting for 10 beats.. PAST MEDICAL HISTORY No date: Back pain 11/19/2015: 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 07/2013: CAD (coronary artery disease) Comment: non-STMI/CABG No date: GERD (gastroesophageal reflux disease) Comment: hiatal hernia 09/14/2015: History of DVT (deep vein thrombosis) 07/2011: History of rectal polypectomy No date: Hyperlipidemia No date: Hypertension No date: Iron deficiency anemia No date: Multiple sclerosis (HCC) No date: Neuropathic pain Comment: Legs>arms from MS No date: REBECCA (obstructive sleep apnea) Comment: on CPAP No date: Pacemaker 07/2013: Pulmonary embolism (HCC) Comment: during hospitalization for NE No date: Vitamin D deficiency PAST SURGICAL HISTORY 07/22/13: CABG, ARTERIAL, TWO Comment: THURMAN to LAD and Dx No date: CARPAL TUNNEL 03/23/2017: CATARACT EXTRACTION HX; Right Comment: Dr. Thiago Verdugo 04/16/2017: CATARACT EXTRACTION HX; Left Comment: Dr. Das 08/01/2011: COLONOSCOPY Comment: 5mm rectal polyp 12/05/2015: COLONOSCOPY Comment: rectal polyp (adenoma) and diverticulosis 07/17/2011: EGD Comment: sliding hiatal hernia 11/19/15: ENDOSCOPY PROC Comment: Dr. Lema- ?1980s: HEART CATHETERIZATION 1982: HYSTERECTOMY HX No date: PACEMAKER No date: ROTATOR CUFF REPAIR Comment: right SOCIAL HISTORY Social History Tobacco Use Smoking status: Former Current packs/day: 1.00 Average packs/day: 1 pack/day for 20.0 years (20.0 ttl pk-yrs) Types: Cigarettes Smokeless tobacco: Never Tobacco comments: Quit around 1995 Vaping Use Vaping status: Never Used Substance Use Topics Alcohol use: Yes Comment: occ Drug use: Never FAMILY HISTORY Problem Relation Age of Onset Cancer Father Diabetes Mother Coronary Artery Disease Mother NE's Coronary Artery Disease Brother 2 brothers CABG Aneurysm Brother Heart Sister NE's, valve replaced Stroke Sister Ovarian cancer Sister Multiple Sclerosis Sister Hypertension Sister ALLERGIES Allergen Reactions Glatiramer Itching, Rash MEDICATIONS: losartan (COZAAR) 50 mg tablet Take 1 tablet by mouth once daily. spironolactone (ALDACTONE) 25 mg tablet Take 1 tablet by mouth once daily. magnesium oxide (MAGOX) 400 mg (241.3 mg magnesium) tablet Take 1 tablet by mouth two times a day. apixaban (ELIQUIS) 5 mg tab(s) Take 1 tablet by mouth two times a day. carvedilol (COREG) 25 mg tablet Take 0.5 tablets by mouth two times a day. esomeprazole (NEXIUM) 40 mg capsule Take 1 capsule by mouth daily before breakfast. 1/2 hr before meal. fenofibrate nanocrystallized (TRICOR) 145 mg tablet Take 1 tablet by mouth once daily. DULoxetine (CYMBALTA) 30 mg capsule take 1 capsule by mouth every day in the evening DULoxetine (CYMBALTA) 60 mg capsule pravastatin (PRAVACHOL) 40 mg tablet Take 1 tablet by mouth daily at bedtime. VUMERITY 231 mg capsule, delayed release Twice [...] as needed. 1 in am, 1in afternoon (more content not included)... [facility] 10-27-2023 MINH Telephone (CARMOB) -------- JENNI ALBRIGHT ([id number]) 1950 F Date Time Provider Department 10/27/23 DA DE LA ROSA During your visit today, we recorded the following information about you: Lizbet Warren 10/27/2023 9:25 AM Signed The patient is rescheduled and confirmed on appt from w Dr. De La Rosa. Lizbet Warren Allergies As of Date: 10/27/2023 Noted Allergy Reaction GLATIRAMER 07/20/2018 9 - Itching 2 - Rash Date Reviewed: 07/09/2023 Reviewed by: Sophia Castillo APRN.CHILDB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 - Fully Assessed Reason for Visit: Appointment [186] Prescriptions as of 10/27/2023 - losartan (COZAAR) 50 mg tablet Take 1 tablet by mouth once daily. - spironolactone (ALDACTONE) 25 mg tablet Take 1 tablet by mouth once daily. - magnesium oxide (MAGOX) 400 mg (241.3 mg magnesium) tablet Take 1 tablet by mouth two times a day. - apixaban (ELIQUIS) 5 mg tab(s) Take 1 tablet by mouth two times a day. - carvedilol (COREG) 25 mg tablet Take 0.5 tablets by mouth two times a day. - esomeprazole (NEXIUM) 40 mg capsule Take 1 capsule by mouth daily before breakfast. 1/2 hr before meal. - fenofibrate nanocrystallized (TRICOR) 145 mg tablet Take 1 tablet by mouth once daily. - DULoxetine (CYMBALTA) 30 mg capsule take 1 capsule by mouth every day in the evening - DULoxetine (CYMBALTA) 60 mg capsule - pravastatin (PRAVACHOL) 40 mg tablet Take 1 tablet by mouth daily at bedtime. - VUMERITY 231 mg capsule, delayed release Twice daily-Dr. Clemente - dimethyl fumarate (TECFIDERA) [address] Take 1 capsule by mouth twice daily. - SYMBICORT 160-4.5 mcg/actuation inhaler Inhale 2 Puffs as instructed twice daily as needed. - gabapentin (NEURONTIN) 800 mg tablet Take 1 tablet by mouth four times daily. - ALBUTEROL SULFATE HFA INHALATION Inhale as instructed. - baclofen (LIORESAL) 20 mg tablet Take by mouth three times daily as needed. 1 in am, 1in afternoon and 2 at bedtime - COMPOUNDED PRESCRIPTION One pair of shoes to fit over leg brace. Dx: G35; M79.2 - nitroglycerin sublingual (NITROQUICK) 0.4 mg SL tablet Dissolve 1 tablet under the tongue every 5 minutes as needed for Chest Pain. - multivitamin (MULTIPLE VITAMINS) tablet Take 1 tablet by mouth once daily. - aspirin, enteric coated (ASPIRIN, ENTERIC COATED) 81 mg EC tablet Take 81 mg by mouth once daily. - ferrous sulfate 325 mg (65 mg iron) tablet Take 325 mg by mouth daily with breakfast. Meds Comments as of 02/08/2021: OTC Cranberry and Vitamin C. Problem List As Of Date 10/27/2023 Noted Resolved Multiple sclerosis [G35] Neuropathic pain [M79.2] Hyperlipidemia [E78.5] GERD (gastroesophageal reflux disease) [K21.9] Vitamin D deficiency [E55.9] Back pain [M54.9] REBECCA (obstructive sleep apnea) [G47.33] Iron deficiency anemia [D50.9] History of rectal polypectomy [Z98.890, Z87.19] 07/13/2011 CAD (coronary artery disease) [I25.10] 07/12/2013 Pulmonary embolism (HCC) [I26.99] 07/12/2013 Essential hypertension [I10] 12/21/2014 Cardiac pacemaker [Z95.0] 09/14/2015 History of DVT (deep vein thrombosis) [Z86.718] 09/14/2015 Positive occult stool blood test [R19.5] 05/04/2018 Spastic hemiplegia, unspecified etiology, unspe*08/19/2022 Morbid obesity (HCC) [E66.01] 08/19/2022 Congestive heart failure, unspecified HF chroni*08/19/2022 PAF (paroxysmal atrial fibrillation) (HCC) [I48*08/19/2022 Abnormal result of other cardiovascular functio*11/22/2014 Biventricular implantable cardioverter-defibril* Calf pain [M79.669] 2021 Cervico-occipital neuralgia [M54.81] 06/17/2016 correction current use of anticoagulant therapy *11/10/2022 Delirium [R41.0] 11/10/2022 Dysphagia [R13.10] 01/09/2022 Dyspnea on exertion [R06.09] 12/19/2021 Fatigue [R53.83] 11/10/2022 Hereditary peripheral neuropathy [G60.9] 09/23/2015 Idiopathic peripheral neuropathy [G60.9] 07/18/2014 Irritable bowel syndrome [K58.9] 11/10/2022 Neuralgia [M79.2] 12/06/2013 Neurogenic bladder [N31.9] 11/10/2022 Pain in both lower legs [M79.661, M79.662] 11/10/2022 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]2021 Personal history of pulmonary embolism [Z86.711]09/14/2013 Problem [[id number]] 11/10/2022 S/P CABG x 2 [Z95.1] 11/10/2022 Spinal stenosis of lumbar region [M48.061] 01/18/2019 Syncope and collapse [R55] 06/19/2015 Tingling of skin [R20.2] 08/13/2015 Transient ischemic attack [G45.9] 12/25/2014 Trigeminal neuralgia [G50.0] 06/19/2015 Urinary tract infection [N39.0] 11/10/2022 Retention of urine [R33.9] 11/10/2022 Obesity, Class III, BMI >= 40 [E66.01] 11/17/2022 Encounter Status:Closed by LIZBET WARREN on 10/27/23 [facility] Absolute lymphocyte countOrd ered By: García Clemente on 04-30-2023 Lymphocytes Auto (Unsp spec) [#/Vol] 0.49 10*3/uL 0.83-4.51 [facility] Automated lymphocyte count a s percentage of total leukocytesOrdered By: García Clemente on 04-30-2023 Lymphocytes/100 WBC Auto (Unsp spec) 8.5 % 19-41 [facility] Basophil percentageOrdered B y: García Clemente on 04-30-2023 Basophils/100 WBC (Bld) 0.5 % 0-1 [facility] Bilirubin [Mass/Vol] 0.50 mg/dL 0.20-1.00 [facility] Comment on above: For patients on eltr ombopag therapy, use of Dimension Ramsey TBIL is not recommended. Chloride [Moles/Vol] 110 mmol/L 98-107 [facility] Eosinophils/100 WBC (Bld) 2.4 % 0-5 [facility] Glucose [Mass/Vol] 107 mg/dL 74-106 [facility] Comment on above: Fasting Glucose resu lt from 100 to 125 mg/dL suggests IMPAIRED HOMEOSTASIS per A.D.A. criteria. Hemoglobin (Bld) [Mass/Vol] 12.5 g/dL 12.0-15.0 [facility] Monocytes/100 WBC (Bld) 9.0 % 0-10 [facility] Neutrophils (Bld) [#/Vol] 4.6 10*3/uL 2.0-7.7 [facility] Neutrophils/100 WBC (Bld) 79.3 % 47-70 [facility] Potassium [Moles/Vol] 4.7 mmol/L 3.5-5.1 [facility] Protein [Mass/Vol] 7.3 g/dL 6.4-8.2 [facility] Sodium [Moles/Vol] 141 mmol/L 136-145 [facility] WBC (Bld) [#/Vol] 5.8 10*3/uL 4.4-11.0 [facility] Blood manual differential co mment interpretation (narrative result)Ordered By: Gracía Clemente on 04-30-2023 Manual differential comment Robby (Bld) [Interp] SCANNED [facility] Determination of erythrocyte mean corpuscular volume (MCV)Ordered By: García Clemente on 04-30-2023 MCV (RBC) [Entitic vol] 88.8 fL 81-99 [facility] Erythrocyte distribution wid th ratioOrdered By: Garcíakate Clemente on 04-30-2023 Erythrocyte distribution width (RBC) [Ratio] 14.1 % 11.6-14.6 [facility] Erythrocyte distribution wid th standard deviationOrdered By: García Clemente on 04-30-2023 Erythrocyte distribution width (RBC) [Entitic vol] 45.5 fL 35.1-43.9 [facility] Hematocrit Auto (Bld) [Volum e fraction]Ordered By: García Clemente on 04-30-2023 Hematocrit (Bld) [Volume fraction] 41.2 % 37-47 [facility] Immature granulocytes/100 WB C Auto (Bld)Ordered By: Garcíakate Clemente on 04-30-2023 Immature granulocytes/100 WBC (Bld) 0.300 % 0.0-0.9 [facility] Comment on above: IG% - Immature Granu locytes (promyelocytes, myelocytes and metamyelocytes) > 1% indicates that a LEFT SHIFT is Present. Laboratory - Chemistry and C hemistry - challengeOrdered By: García Clemente on 04-30-2023 Albumin/Globulin [Mass ratio] 1.0 {ratio} 0.9-2.4 [facility] ALP [Catalytic activity/Vol] 74 U/L 45-117 [facility] ALT [Catalytic activity/Vol] 32 U/L 13-56 [facility] CO2 [Moles/Vol] 27.0 mmol/L 21.0-32.0 [facility] Globulin (S) [Mass/Vol] 3.7 g/dL 2.2-4.2 [facility] Urea nitrogen/Creatinine [Mass ratio] 20.5 mg/mg 10-20 [facility] Laboratory - Hematology and Cell countsOrdered By: García Clemente on 04-30-2023 MCH (RBC) [Entitic mass] 26.9 pg 27.0-32.0 [facility] MCHC (RBC) [Mass/Vol] 30.3 g/dL 32-36 [facility] Nucleated RBC/100 WBC (Bld) [Ratio] 0 % 0-5 [facility] Platelets (Bld) [#/Vol] 309 10*3/uL 150-450 [facility] No Panel InformationOrdered By: García Clemente on 04-30-2023 Estimated GFR (MDRD) Amer 100 mL/min >60 [facility] Comment on above: GFR Calc Estimated GFR (MDRD) Non-Af Amer 83 mL/min >60 [facility] Comment on above: Non- GFR Calc No Panel InformationOrdered By: Brandon Franco on 04-30-2023 Vitamin D 25-Hydroxy 31.8 ng/mL [facility] Comment on above: Vitamin D 25(OH) Sta tus Range Deficiency <20 ng/mL (50nmol/L) Insufficiency 20 - 30 ng/mL (50 - 75 nmol/L) Sufficiency 30 - 100 ng/mL (75 - 250 nmol/L) Toxicity >100 ng/mL (>250 nmol/L) Platelet mean volume Miguel-Ec ker (Bld) [Entitic vol]Ordered By: García Clemente on 04-30-2023 Platelet mean volume (Bld) [Entitic vol] 9.9 fL 6.2-12.0 [facility] RBC Auto (Bld) [#/Vol]Ordere d By: García Clemente on 04-30-2023 RBC (Bld) [#/Vol] 4.64 10*6/uL 4.2-5.4 [facility] Serum or plasma calcium sadaf urement (mass/volume)Ordered By: García Clemente on 04-30-2023 Calcium [Mass/Vol] 10.8 mg/dL 8.5-10.1 [facility] Serum or plasma creatinine m easurement (mass/volume)Ordered By: García Clemente on 04-30-2023 Creatinine [Mass/Vol] 0.73 mg/dL 0.55-1.02 [facility] Comment on above: The validity of the calculated GFR & GFRAA in patients over 70 years has not been determined. Clinical correlation is essential. Serum or plasma urea nitroge n measurement (mass/volume)Ordered By: García Clemente on 04-30-2023 Urea nitrogen [Mass/Vol] 15 mg/dL 7-18 [facility] Thin prep Papanicolaou smear with manual screeningOrdered By: García Clemente on 04-30-2023 Thin prep Papanicolaou smear with manual screening 3.6 g/dL 3.2-5.0 [facility] Thin prep Papanicolaou smear with manual screening 16 U/L 15-37 [facility] Thin prep Papanicolaou smear with manual screening 4 5-15 [facility] Whole blood hemoglobin A1c/t otal hemoglobin ratio (mass fraction)Ordered By: Brandon Franco on 04-30-2023 HbA1c (Bld) [Mass fraction] 5.5 % 3.8-5.6 [facility] Comment on above: Normal < 5.7 % Predi abetic 5.7 - 6.4 % Diabetic >or= 6.5 % Please note range changes. Absolute lymphocyte countOrd ered By: García Clemente on 10-21-2022 Lymphocytes Auto (Unsp spec) [#/Vol] 0.49 10*3/uL 0.83-4.51 [facility] Basophil percentageOrdered B y: García Clemente on 10-21-2022 Basophils/100 WBC (Bld) 0.5 % 0-1 [facility] Bilirubin [Mass/Vol] 0.40 mg/dL 0.20-1.00 [facility] Comment on above: For patients on eltr ombopag therapy, use of Dimension Ramsey TBIL is not recommended. Chloride [Moles/Vol] 107 mmol/L 98-107 [facility] Eosinophils/100 WBC (Bld) 2.0 % 0-5 [facility] Glucose [Mass/Vol] 111 mg/dL 74-106 [facility] Comment on above: Fasting Glucose resu lt from 100 to 125 mg/dL suggests IMPAIRED HOMEOSTASIS per A.D.A. criteria. Neutrophils (Bld) [#/Vol] 4.7 10*3/uL 2.0-7.7 [facility] Neutrophils/100 WBC (Bld) 80.6 % 47-70 [facility] Potassium [Moles/Vol] 4.8 mmol/L 3.5-5.1 [facility] Protein [Mass/Vol] 7.7 g/dL 6.4-8.2 [facility] Sodium [Moles/Vol] 140 mmol/L 136-145 [facility] WBC (Bld) [#/Vol] 5.9 10*3/uL 4.4-11.0 [facility] Blood erythrocytes count (nu mber/volume)Ordered By: García Clemente on 10-21-2022 RBC (Bld) [#/Vol] 4.70 10*6/uL 4.2-5.4 [facility] Blood hemoglobin measurement (mass/volume)Ordered By: García Clemente on 10-21-2022 Hemoglobin (Bld) [Mass/Vol] 12.8 g/dL 12.0-15.0 [facility] Blood lymphocytes/100 leukoc ytesOrdered By: García Clemente on 10-21-2022 Lymphocytes/100 WBC (Bld) 8.4 % 19-41 [facility] Blood manual differential co mment interpretation (narrative result)Ordered By: García Clemente on 10-21-2022 Manual differential comment Robby (Bld) [Interp] SCANNED [facility] Blood monocytes/100 leukocyt esOrdered By: García Clemente on 10-21-2022 Monocytes/100 WBC (Bld) 8.0 % 0-10 [facility] Blood platelet mean volumeOr dered By: García Clemente on 10-21-2022 Platelet mean volume (Bld) [Entitic vol] 10.1 fL 6.2-12.0 [facility] Determination of erythrocyte mean corpuscular volume (MCV)Ordered By: García Clemente on 10-21-2022 MCV (RBC) [Entitic vol] 88.7 fL 81-99 [facility] Hematocrit Auto (Bld) [Volum e fraction]Ordered By: García Clemente on 10-21-2022 Hematocrit (Bld) [Volume fraction] 41.7 % 37-47 [facility] Laboratory - Chemistry and C hemistry - challengeOrdered By: García Clemente on 10-21-2022 ALP [Catalytic activity/Vol] 87 U/L 45-117 [facility] ALT [Catalytic activity/Vol] 37 U/L 13-56 [facility] CO2 [Moles/Vol] 28.0 mmol/L 21.0-32.0 [facility] Globulin (S) [Mass/Vol] 4.0 g/dL 2.2-4.2 [facility] Magnesium [Mass/Vol] 2.4 mg/dL 1.6-2.6 [facility] Urea nitrogen/Creatinine [Mass ratio] 19.9 mg/mg 10-20 [facility] Laboratory - Hematology and Cell countsOrdered By: García Clemente on 10-21-2022 Erythrocyte distribution width (RBC) [Entitic vol] 46.3 fL 35.1-43.9 [facility] Erythrocyte distribution width (RBC) [Ratio] 14.3 % 11.6-14.6 [facility] Immature granulocytes/100 WBC (Bld) 0.500 % 0.0-0.9 [facility] Comment on above: IG% - Immature Granu locytes (promyelocytes, myelocytes and metamyelocytes) > 1% indicates that a LEFT SHIFT is Present. MCH (RBC) [Entitic mass] 27.2 pg 27.0-32.0 [facility] Nucleated RBC/100 WBC (Bld) [Ratio] 0 % 0-5 [facility] MCHC Auto (RBC) [Mass/Vol]Or dered By: García Clemente on 10-21-2022 MCHC (RBC) [Mass/Vol] 30.7 g/dL 32-36 [facility] No Panel InformationOrdered By: García Clemente on 10-21-2022 Estimated GFR (MDRD) Amer 90 mL/min >60 [facility] Comment on above: GFR Calc Estimated GFR (MDRD) Non-Af Amer 74 mL/min >60 [facility] Comment on above: Non- GFR Calc Thyroid Stimulating Hormone (TSH) 3.07 uIU/mL 0.358-3.74 [facility] Platelets bldOrdered By: Enzo Clemente on 10-21-2022 Platelets (Bld) [#/Vol] 312 10*3/uL 150-450 [facility] Serum or plasma albumin sadaf urement (mass/volume)Ordered By: García Clemente on 10-21-2022 Albumin [Mass/Vol] 3.7 g/dL 3.2-5.0 [facility] Serum or plasma albumin/glob ulin mass ratioOrdered By: García Clemente on 10-21-2022 Albumin/Globulin [Mass ratio] 0.9 {ratio} 0.9-2.4 [facility] Serum or plasma calcitriol m easurement (mass/volume)Ordered By: García Clemente on 10-21-2022 1,25-dihydroxyvitamin D3 [Mass/Vol] 65.1 pg/mL 24.8-81.5 [facility] Comment on above: Performed at: [employer] - [address] [id number] Director: Jesus Riley MD, Phone: [phone] Serum or plasma calcium sadaf urement (mass/volume)Ordered By: García Clemente on 10-21-2022 Calcium [Mass/Vol] 10.5 mg/dL 8.5-10.1 [facility] Serum or plasma creatinine m easurement (mass/volume)Ordered By: García Clemente on 10-21-2022 Creatinine [Mass/Vol] 0.80 mg/dL 0.55-1.02 [facility] Comment on above: The validity of the calculated GFR & GFRAA in patients over 70 years has not been determined. Clinical correlation is essential. Serum or plasma urea nitroge n measurement (mass/volume)Ordered By: García Clemente on 10-21-2022 Urea nitrogen [Mass/Vol] 16 mg/dL 7-18 [facility] Thin prep Papanicolaou smear with manual screeningOrdered By: García Clemente on 10-21-2022 Thin prep Papanicolaou smear with manual screening 21 U/L 15-37 [facility] Thin prep Papanicolaou smear with manual screening 5 5-15 [facility] XR Chest PA and Lateralon IMPRESSION: Findings as discussed under Results portion of report. Upper Trimmer: TYE Transcribe Date/Time: Apr 13 2022 6:45P Dictated by : LEFTY VARMA DO This examination was interpreted and the report reviewed and electronically signed by: LEFTY VARMA DO on Apr 13 2022 6:46PM [facility] DIVISION OF RADIOLOGY * * *Final Report* * * DATE OF EXAM: Apr 11 2022 11:30AM WOX 5291 - XR CHEST 2V FRONTAL/LAT / PROCEDURE REASON: Acute cough * * * * Physician Interpretation * * * * EXAMINATION: CHEST RADIOGRAPH (2 VIEW FRONTAL & LATERAL) CLINICAL HISTORY: Acute cough MQ: XC2_6 EXAM DATE/TIME: 04/11/2022 11:30 AM COMPARISON: 08/29/2020 RESULT: Lines, tubes, and devices: Cardiac leads unchanged in position. Lungs and pleura: Some increased density in the RIGHT cardiophrenic angle may represent infiltrate. Some linear bands in each lung base may represent atelectasis. Cardiomediastinal silhouette: Normal cardiomediastinal silhouette. Bones and soft tissues: Unremarkable. DIVISION OF RADIOLOGY Provider, Britta James - 04/13/2022 * * *Final Report* * * DATE OF EXAM: Apr 11 2022 11:30AM WOX 5291 - XR CHEST 2V FRONTAL/LAT / PROCEDURE REASON: Acute cough * * * * Physician Interpretation * * * * EXAMINATION: CHEST RADIOGRAPH (2 VIEW FRONTAL & LATERAL) CLINICAL HISTORY: Acute cough MQ: XC2_6 EXAM DATE/TIME: 04/11/2022 11:30 AM COMPARISON: 08/29/2020 RESULT: Lines, tubes, and devices: Cardiac leads unchanged in position. Lungs and pleura: Some increased density in the RIGHT cardiophrenic angle may represent infiltrate. Some linear bands in each lung base may represent atelectasis. Cardiomediastinal silhouette: Normal cardiomediastinal silhouette. Bones and soft tissues: Unremarkable. IMPRESSION IMPRESSION: Findings as discussed under Results portion of report. Upper Trimmer: TYE Transcribe Date/Time: Apr 13 2022 6:45P Dictated by : LEFTY VARMA DO This examination was interpreted and the report reviewed and electronically signed by: LEFTY VARMA DO on Apr 13 2022 6:46PM EST [facility] XR Chest PA and LateralOrder ed By: [facility] Provider on 04-13-2022 [facility] XR CHEST 2V FRONTAL/LATon [facility] XR Chest PA and Lateralon Radiology Study observation (narrative) [facility] Absolute lymphocyte counton 2021 Lymphocytes Auto (Unsp spec) [#/Vol] 0.60 10*3/uL 0.83-4.51 [facility] Work Phone: Basophil percentageon 2021 Basophils/100 WBC (Bld) 0.4 % 0-1 [facility] Work Phone: Eosinophils/100 WBC (Bld) 2.1 % 0-5 [facility] Work Phone: Neutrophils (Bld) [#/Vol] 4.0 10*3/uL 2.0-7.7 [facility] Work Phone: Neutrophils/100 WBC (Bld) 77.1 % 47-70 [facility] Work Phone: WBC (Bld) [#/Vol] 5.2 10*3/uL 4.4-11.0 [facility] Work Phone: Blood erythrocytes count (nu mber/volume)on 2021 RBC (Bld) [#/Vol] 4.70 10*6/uL 4.2-5.4 [facility] Work Phone: Blood hemoglobin measurement (mass/volume)on 2021 Hemoglobin (Bld) [Mass/Vol] 12.8 g/dL 12.0-15.0 [facility] Work Phone: Blood lymphocytes/100 leukoc yteson 2021 Lymphocytes/100 WBC (Bld) 11.5 % 19-41 [facility] Work Phone: [phone] Blood manual differential co mment interpretation (narrative result)on 2021 Manual differential comment Robby (Bld) [Interp] SCANNED [facility] Work Phone: [phone] Blood monocytes/100 leukocyt eson 2021 Monocytes/100 WBC (Bld) 8.5 % 0-10 [facility] Work Phone: [phone] Blood platelet mean volumeon 2021 Platelet mean volume (Bld) [Entitic vol] 10.6 fL 6.2-12.0 [facility] Work Phone: [phone] Determination of erythrocyte mean corpuscular volume (MCV)on 2021 MCV (RBC) [Entitic vol] 88.7 fL 81-99 [facility] Work Phone: [phone] Hematocrit Auto (Bld) [Volum e fraction]on 2021 Hematocrit (Bld) [Volume fraction] 41.7 % 37-47 [facility] Work Phone: [phone] Laboratory - Hematology and Cell countson 2021 Erythrocyte distribution width (RBC) [Entitic vol] 44.7 fL 35.1-43.9 [facility] Work Phone: [phone] Erythrocyte distribution width (RBC) [Ratio] 13.8 % 11.6-14.6 [facility] Work Phone: [phone] Immature granulocytes/100 WBC (Bld) 0.400 % 0.0-0.9 [facility] Work Phone: [phone] Comment on above: IG% - Immature Granu locytes (promyelocytes, myelocytes and metamyelocytes) > 1% indicates that a LEFT SHIFT is Present. MCH (RBC) [Entitic mass] 27.2 pg 27.0-32.0 [facility] Work Phone: [phone] Nucleated RBC/100 WBC (Bld) [Ratio] 0 % 0-5 [facility] Work Phone: [phone] MCHC Auto (RBC) [Mass/Vol]on 2021 MCHC (RBC) [Mass/Vol] 30.7 g/dL 32-36 [facility] Work Phone: Platelets bldon 2021 Platelets (Bld) [#/Vol] 283 10*3/uL 150-450 [facility] Work Phone: Serum or plasma calcitriol m easurement (mass/volume)on 2021 1,25-dihydroxyvitamin D3 [Mass/Vol] 43.0 pg/mL 24.8-81.5 [facility] Work Phone: Comment on above: Please note refere nce interval changePerformed at: [facility] [id number] Director: Jesus Riley MD, Phone: [phone] Basophil percentageon 2021 Bilirubin [Mass/Vol] 0.30 mg/dL 0.20-1.00 [facility] Work Phone: Comment on above: For patients on eltr ombopag therapy, use of Dimension Ramsey TBIL is not recommended. Chloride [Moles/Vol] 109 mmol/L 98-107 [facility] Work Phone: Cholesterol [Mass/Vol] 148 mg/dL <[address] [facility] Work Phone: Comment on above: <200 mg/dL Desirable 200-240 mg/dL Borderline >240 mg/dL High Risk Glucose [Mass/Vol] 109 mg/dL 74-106 [facility] Work Phone: Comment on above: Fasting Glucose resu lt from 100 to 125 mg/dL suggests IMPAIRED HOMEOSTASIS per A.D.A. criteria. Potassium [Moles/Vol] 4.1 mmol/L 3.5-5.1 [facility] Work Phone: Protein [Mass/Vol] 7.7 g/dL 6.4-8.2 [facility] Work Phone: [phone] Sodium [Moles/Vol] 141 mmol/L 136-145 [facility] Work Phone: [phone] Triglyceride [Mass/Vol] 182 mg/dL <199 [facility] Work Phone: [phone] Comment on above: The drugs N-Acetylcy steine and Metamizole may falsely depress this assay.Serum Triglycerides Reference Interval Normal <150 mg/dL Borderline high 150 - 199 mg/dL High 200 - 499 mg/dL Very High > or = 500 mg/dL WBC (Bld) [#/Vol] 3.9 10*3/uL 4.4-11.0 [facility] Work Phone: [phone] Blood erythrocytes count (nu mber/volume)on 10-11-2021 RBC (Bld) [#/Vol] 4.69 10*6/uL 4.2-5.4 [facility] Work Phone: [phone] Blood hemoglobin measurement (mass/volume)on 10-11-2021 Hemoglobin (Bld) [Mass/Vol] 12.9 g/dL 12.0-15.0 [facility] Work Phone: [phone] Blood platelet mean volumeon 10-11-2021 Platelet mean volume (Bld) [Entitic vol] 9.7 fL 6.2-12.0 [facility] Work Phone: [phone] Determination of erythrocyte mean corpuscular volume (MCV)on 10-11-2021 MCV (RBC) [Entitic vol] 86.1 fL 81-99 [facility] Work Phone: [phone] Hematocrit Auto (Bld) [Volum e fraction]on 10-11-2021 Hematocrit (Bld) [Volume fraction] 40.4 % 37-47 [facility] Work Phone: [phone] Laboratory - Chemistry and C hemistry - challengeon 10-11-2021 ALP [Catalytic activity/Vol] 63 U/L 45-117 [facility] Work Phone: [phone] ALT [Catalytic activity/Vol] 32 U/L 13-56 [facility] Work Phone: [phone] CO2 [Moles/Vol] 27.0 mmol/L 21.0-32.0 [facility] Work Phone: [phone] Globulin (S) [Mass/Vol] 3.8 g/dL 2.2-4.2 [facility] Work Phone: Magnesium [Mass/Vol] 2.2 mg/dL 1.6-2.6 [facility] Work Phone: Urea nitrogen/Creatinine [Mass ratio] 23.9 mg/mg 10-20 [facility] Work Phone: Laboratory - Hematology and Cell countson 10-11-2021 Erythrocyte distribution width (RBC) [Entitic vol] 41.8 fL 35.1-43.9 [facility] Work Phone: Erythrocyte distribution width (RBC) [Ratio] 13.3 % 11.6-14.6 [facility] Work Phone: MCH (RBC) [Entitic mass] 27.5 pg 27.0-32.0 [facility] Work Phone: MCHC Auto (RBC) [Mass/Vol]on 10-11-2021 MCHC (RBC) [Mass/Vol] 31.9 g/dL 32-36 [facility] Work Phone: No Panel Informationon 10-11 Estimated GFR (MDRD) Amer 86 mL/min >60 [facility] Work Phone: Comment on above: GFR Calc Estimated GFR (MDRD) Non-Af Amer 71 mL/min >60 [facility] Work Phone: Comment on above: Non- GFR Calc Thyroid Stimulating Hormone (TSH) 2.46 uIU/mL 0.358-3.74 [facility] Work Phone: Platelets bldon 10-11-2021 Platelets (Bld) [#/Vol] 261 10*3/uL 150-450 [facility] Work Phone: Review by pathologiston Pathologist review Robby (Unsp spec) [Interp] Reviewed [facility] Work Phone: Comment on above: Previous reported re sult: Lorri hoffman Edited by: MOHSEN on 10/15/21:1515Leukopenia.Clinical correlation necessary.Donavan Mcdowell M.D. 10/15/21 AMENDED REPORT 10/15/21 1325 PATH REV previously reported as: August Serum or plasma albumin sadaf urement (mass/volume)on 10-11-2021 Albumin [Mass/Vol] 3.9 g/dL 3.2-5.0 [facility] Work Phone: Serum or plasma albumin/glob ulin mass ratioon 10-11-2021 Albumin/Globulin [Mass ratio] 1.0 {ratio} 0.9-2.4 [facility] Work Phone: Serum or plasma calcium sadaf urement (mass/volume)on 10-11-2021 Calcium [Mass/Vol] 10.5 mg/dL 8.5-10.1 [facility] Work Phone: Serum or plasma cholesterol in HDL measurement (mass/volume)on 10-11-2021 Cholesterol in HDL [Mass/Vol] 32 mg/dL >40 [facility] Work Phone: Comment on above: The drugs N-Acetylcy steine and Metamizole may falsely depress this assay. Reference Range HDL <40 mg/dL Low HDL Cholesterol HDL >or= 60 mg/dL High HDL Cholesterol Serum or plasma cholesterol in VLDL measurement (mass/volume)on 10-11-2021 Cholesterol in VLDL [Mass/Vol] 36 mg/dL 5-40 [facility] Work Phone: Serum or plasma creatinine m easurement (mass/volume)on 10-11-2021 Creatinine [Mass/Vol] 0.84 mg/dL 0.55-1.02 [facility] Work Phone: Comment on above: The validity of the calculated GFR & GFRAA in patients over 70 years has not been determined. Clinical correlation is essential. Serum or plasma low density lipoprotein (LDL) cholesterol measurement (mass/volume)on 10-11-2021 Cholesterol in LDL [Mass/Vol] 80 mg/dL 0-130 [facility] Work Phone: Serum or plasma urea nitroge n measurement (mass/volume)on 07-01-2022 Urea nitrogen [Mass/Vol] 20 mg/dL 7-18 [facility] Work Phone: Thin prep Papanicolaou smear with manual screeningon 10-11-2021 Thin prep Papanicolaou smear with manual screening 19 U/L 15-37 [facility] Work Phone: Thin prep Papanicolaou smear with manual screening 5 5-15 [facility] Work Phone: DISCH.SUMon 08-31-2020 DISCH.[facility] Patient Name: JENNI ALBRIGHT [email or web address] Date of : [address] [address] Unit Number: [id number] Discharge Summary Patient Status: ADM Michael Attending Doctor: Yesenia Casanova DO Service Date: 08/31/20 1322 Discharge Summary Admit Date Admission Date Time: 08/29/20 1700 Final Dx/Problem List 1. Dyspnea Patient Problems Reviewed: Yes Chief Complaint/HPI SOB Reason for Admission SOB Hospital Course New 1-year-old female with a past medical history of coronary artery disease status post CABG, multiple sclerosis, hypertension, hyperlipidemia. Patient came in complaining of dyspnea at rest as well as on exertion. Patient underwent a CT a which was negative for any pulmonary embolism or pleural effusion. Patient was evaluated by her color shop helper Dr. Staley. Cardiology felt that the patient's cardiac disposition was appropriate. Patient was monitored overnight was able to be successfully weaned off of oxygen. Patient was no longer exhibiting any shortness of breath and expressed a desire to go home. Patient was seen on day of discharge and deemed hemodynamically stable to go home. Questions and concerns were answered. The patient will be following up with her primary care physician in the outpatient setting. 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 Phonetic and/or minor grammatical errors may exist. eSign Date and Time Jayshree Carlson MD Verified/Reviewed by 08/31/20 1325 [facility] 08-31-2020 CONSULTATION-H&P [facility] [place] Patient Name: JENNI ALBRIGHT [address] [facility] [place] Date of : [address] [id number] Unit Number: [id number] CONSULTATION-HandP Patient Status: ADM Michael Attending Doctor: Yesenia Casanova DO Service Date: 08/31/2059 Consultation-Transition Plan Transition Action Points This is a 69-year-old female previously from home with multiple medical comorbid conditions which does include coronary artery disease as well as MS and weakness debility secondary to this. Patient was admitted for tachycardia as well as shortness of breath. She lives in a one-story floor plan with her does utilize a walker at home for ambulatory assistance. No history of falls at home. Presently at this point time physical Occupational Therapy have recommended home with home health care she is in agreement with this plan at this point time however she states that she is unable to afford the deductible at this point in time to can recommend at this point in time any social sciences lecturer from therapy team as well as social work team in regards to helping with this. Did encourage the patient to continues with therapy as long as she could as it would be beneficial to her in the long run in terms of any further hospitalizations. The role of the transition team was discussed at length with the patient all of her questions and concerns were entertained and addressed to her satisfaction Patient is scheduled for possible discharge today if not we will follow up with this patient over the next few days to assess for any further weakness or debility from prolonged hospitalization Assessment and Plan 1. Atrial fibrillation 2. Dyspnea 3. Weakness acquired in ICU 4. Age-related physical debility Readmission Risk Points Age rater than 65 Medical complexity Multiple medical comorbid conditions Multiple hospitalizations Low healthcare literacy History and Physical Patient is a 69-year-old female being seen today for transition care planning. Patient patient presented to the emergency department on 08/29 for complaints of shortness of breath. Admitting diagnosis tachycardia and dyspnea. Last admission July 2020 at [facility]. She is a current smoker. Occasional alcohol use. Patient with significant history of CAD, status post CABG x2. O2 at 2 L nasal cannula. PT recommendations home health care. Patient is agreeable to plan. Patient is endorsing weakness and shortness of breath on exertion due to multiple comorbid conditions. Review of Systems General: Denies fevers, chills, malaise HEENT: Denies vision changes, pain, or photophobia. No hearing loss. Cardiovascular: Denies chest pain, palpitations. Respiratory: Denies shortness of breath, dyspnea on exertion. or cough. Gastrointestinal: Denies abdominal pain, nausea, emesis. Denies melena or hematochezia. Genitourinary: Denies dysuria, hematuria, changes in frequency or urgency. Musculoskeletal: Denies joint pain, or joint swelling. Skin: Denies erythema, pruritus, rash. Physical Exam Physical Exam Summary General: No acute distress, lying in bed comfortably, chronically ill HEENT: Mucus membranes moist, normocephalic Cardiac: engine monitor in place Lungs: Work of breathing easy on O2 Musculoskeletal: Generalized weakness present Neurological: AO*3, CN 2-12 intact. Skin: No excoriations, lacerations, rash, or erythema Psychiatric: Normal affect Vital Signs Vital Signs (Last) Result Date Time Pulse Ox 96 08/30 2250 B/P 125/56 08/30 2250 O2 Delivery CPAP 08/30 2250 O2 Flow Rate AUTO 08/300 Temp 97.9 08/30 2250 Pulse 70 08/30 2250 Resp 18 08/30 2250 FiO2 2 08/30 0130 Past Medical History Past Medical/Surgical History Other Visit Active Medical Problems Anemia Complete heart block Congestive heart failure Coronary artery disease GERD (gastroesophageal reflux disease) Hyperlipidemia Hypertension Multiple sclerosis TIA (transient ischemic attack) Allergies Coded Allergies: GLATIRAMER (COPOLYMER 1) (From COPAXONE) (SWELLING/ HIVES AROUND INJECTION SITE 08/30/20) NO KNOWN DRUG ALLERGIES (11/24/14) Uncoded Allergies: [id number] 1/* Normal Metabolizer (DO NOT DELETE 04/27/15) CYP2C9 1/* Normal Metabolizer (DO NOT DELETE 04/27/15) CYP2D6 04/13 XN* Rapid Metabolizer (DO NOT DELETE 04/27/15) VKORC1 -1639G>A G/G* Low Sensitivity (BB) - High dose requir (DO NOT DELETE 04/27/15) Home Medications Apixaban* (Eliquis Tab*) 5 MG TABLET 5 MG PO BID, Ref 0 (Reported) Entered as Reported by JJ COREY on 08/29/20 1726 Last Action: Continued on 08/29/202042 by YESENIA CASANOVA Ascorbic Acid* (Vitamin C 500MG Tab*) 500 MG CAPSULE.ER 1,000 MG PO QDAY, Ref 0 ( Reported) Entered as Reported by JJ COREY on 08/29/20 1744 Last Action: Continued on 08/29/202042 by YESENIA CASANOVA Aspirin* (Ecotrin 81MG Tab*) 81 MG TABLET.DR Hackett (more content not included)... [facility] PROG.[facility] 08-31-2020 PROG.[facility] Patient Name: JENNI ALBRIGHT [address] Date of : [address] [address] Unit Number: [id number] Progress Note-Cardiology Patient Status: DIS Michael Attending Doctor: Yesenia Casanova DO Service Date: 08/31/20 0731 Subjective S: (2 ROS minimum) Denies complaints of chest pain and heart palpitations. Shortness of breath resolved with breathing treatment. Objective (ROS) Nursing Vitals Vital Signs (Last) Result Date Time Pulse Ox 96 08/30 2250 B/P 125/56 08/30 2250 O2 Delivery CPAP 08/30 2250 O2 Flow Rate AUTO 08/30 2250 Temp 97.9 08/30 2250 Pulse 70 08/30 2250 Resp 18 08/30 2250 FiO2 2 08/30 0130 Vital Signs (24hr) Date Temp Pulse Resp B/P B/P Mean Pulse Ox FiO2 08/30 97.4-98.2 70-86 18-20 111-130/49-71 94-96 Physical Exam Physical Examination Notes General: Older female sitting up in bed. NAD HEENT: normocephalic, atraumatic, no cervical adenopathy, JVD, or thyromegaly Resp: Breathing easy and nonlabored, chest expansion symmetric. Lungs CTA Cardiac: RRR, S1, S2 No Murmurs, clicks or rubs present GI: Abdomen soft and nontenteder. BS X 4. No hepatosplenomegaly Extremities: VIVAR X4, No peripheral edema. Pulses 2+ Skin: Warm and dry, No clubbing or cyanosis. Neuro: Alert and oriented X 3. Speech clear. No focal deficits. Psych: Pleasant Telemetry: Paced EC08/29/20 1058 Vent. Rate : 083 BPM Atrial Rate : 083 BPM P-R Int : 134 ms QRS Dur : 130 ms QT Int : 408 ms P-R-T Axes : 049 -44 080 degrees QTc Int : 479 ms Atrial-sensed ventricular-paced rhythm Abnormal ECG When compared with ECG of 07-SEP-2015 06:49, Vent. rate has increased BY 3 BPM Confirmed by NICOLE MATHEW A. ([id number]) on 08/29/2020 6:12:21 PM Referred By: Emergency [facility] Confirmed By:Saida MATHEW M.D.FACC Echocardiogram: 09/05/15 Interpretation Summary Left ventricular systolic function is severely reduced. LVEF 35-40%. Mitral E/A 0.7 suggests probable stage I Diastolic dysfunction. Mitral E/e' medial and lateral between 10-15, with estimated PCWP probable indeterminate. The right ventricle is normal in size and function. There is mild to moderate mitral regurgitation. There is mild tricuspid regurgitation. Right ventricular systolic pressure is elevated at 40-50mmHg. Trace aortic regurgitation. Trace pulmonic valvular regurgitation. There is pericardial thickening and/or a small pericardial effusion. There are no echocardiographic indications of cardiac tamponade. Left Heart Catheterization 01/29/16 CONCLUSION: 1. [place] single-vessel coronary artery disease with mid LAD has 90-99% bifurcation lesion. THURMAN sequential graft to diagonal 1 and LAD is patent. 2. Left circumflex and right coronary artery has mild disease with nonobstructive lesion of 30-40%. 3. Normal left ventricular ejection fraction. 4. Normal left ventricular end-diastolic pressure. RECOMMENDATIONS: Based on cardiac catheterization, I advised medical management and risk factor modification. Current Inpatient Medications: Medications Current Sig/Gloria Start time Last Medication Dose Route Stop Time Status Admin Acetaminophen 650 MG Q4HPRN PRN 08/29 1730 AC (TYLENOL TAB) PO Al Hydrox/Mg Hydrox/ 30 ML Q6HPRN PRN 08/29 1730 AC Simethicone PO (MAALOX (ALAMAG)PLUS ORAL LIQ) Albuterol Sulfate 2.5 MG Q2HPRN PRN 08/29 1730 AC (VENTOLIN/PROVENTIL INH 2.5MG/3ML INH.NEB) Albuterol/Ipratropium 3 ML Q4HWA 08/29 2000 AC 08/30 (DUONEB 0.5-3 MG/3 INH 2028 ML INH.NEB) Apixaban 5 MG BID 08/29 2100 AC 08/30 (ELIQUIS TAB) PO 212 Ascorbic Acid 1,000 MG QDAY 08/30 0900 AC 08/30 (VITAMIN C TAB) PO 1006 Aspirin 81 MG QDAYWM 08/30 0800 AC 08/30 (ECOTRIN TAB.EC) PO 1008 Baclofen 20 MG BID@0800,1400 08/30 0800 AC 08/30 (LIORESAL TAB) PO 1417 Baclofen 40 MG QHS 08/29 2200 AC 08/30 (LIORESAL TAB) PO 212 Benzocaine/Menthol 1 ANISA Q2HPRN PRN 08/29 1730 AC (CEPACOL LOZENGE) MM Bisacodyl 10 MG QDAYPRN PRN 08/29 1730 AC (DULCOLAX RECT) RC Carvedilol 12.5 MG BIDWM 08/29 204 AC 08/30 (COREG TAB) PO 173 Fenofibrate 145 MG QDAY 08/30 0900 AC 08/30 (TRICOR TAB) PO 1006 Ferrous Sulfate 325 MG QDAYAC 08/30 0700 AC 08/31 (FEOSOL TAB.EC) PO 0605 Furosemide 40 MG QDAYAC 08/30 0700 AC 08/31 (LASIX TAB) PO 0605 Gabapentin 800 MG TID 08/29 2100 AC 08/30 (NEURONTIN CAP) PO 2127 Guaifenesin/ 10 ML Q4HPRN PRN 08/29 1730 AC Dextromethorphan PO (ROBITUSSIN-DM ORAL LIQ) Hypromellose 1 GTT Q2HPRN PRN 08/29 1730 AC (ISOPTO TEARS 0.5% OU OPTH DROP) Interferon Beta 1a 44 MCG MoWeFr 08/31 0900 AC (REBIF D.SYR) SC Losartan Potassium (more content not included)... [facility] [place] Progress Note-Cardiology Normal [facility] PTPNon 08-31-2020 PT Progress Note Normal [facility] PTPN Physical Therapy Inpatient Missed Visit Note Attempted to visit patient for therapy, but was unable for the following reasons: Clinical Reason Per Nurse, 'Pt being discharged today.' Return Plan: Not applicable. If there are any questions regarding this service, please contact the Acute Therapy Department at extension [phone] Services: Total Billed: 0 minutes (Timed: 0, Untimed: 0) 0.00 Untimed: [] PT Treatment- General ORDER Signed by: Agustin Connelly, DUMPER OPERATOR 08/31/2020 13:35:08 - CoSigned By: Artis Romero, PT, DPT 08/31/2020 4:09:59 PM [facility] PATIENT NAME: JENNI ALBRIGHT [address] [facility] [address] MEDICAL REC #: [id number] [place] [address] ADMIT DATE: 08/29/20 SERVICE DATE: 08/31/20 Physical Therapy Progress Note ATTENDING PHY: Yesenia Casanova DO Normal [facility] 08-30-2020 Anion gap [Moles/Vol] 9 mmol/L Normal 5-16 [facility] Comment on above: Order Comment: Campu s: M Performed By: #### L 500.22826, L500.91850, L500.27636, L500.04389, L500.85852 ####[facility] [id number] [place], [place] [address]Wx# [phone] Calcium [Mass/Vol] 10.7 mg/dL High 8.5-10.5 [facility] Comment on above: Order Comment: Campu s: M Result Comment: NOTE NEW NORMAL RANGE DUE TO REAGENT CHANGE Performed By: #### L 500.05843, L500.74596, L500.80147, L500.13170, L500.94706 ####[facility] [id number] [place], [place] [address]Uk# [phone] Chloride [Moles/Vol] 107 mmol/L Normal 98-107 [facility] [place] Comment on above: Order Comment: Miguel s: M Performed By: #### L 500.03536, L500.05418, L500.65063, L500.88308, L500.06549 ####[facility] [id number] [place], [place] [address]Du# [phone] CO2 [Moles/Vol] 26.0 mmol/L Normal 21-32 [facility] [place] Comment on above: Order Comment: Miguel s: M Performed By: #### L 500.80509, L500.87318, L500.89560, L500.16822, L500.74961 ####[facility] [id number] [place], [place] [address]Ut# [phone] Creatinine [Mass/Vol] 0.72 mg/dL Normal 0.510-0.950 [facility] [place] Comment on above: Order Comment: Miguel s: Don Result Comment: Ana ents receiving either N-Acetylcysteine (NAC) or Metamizole prior to venipuncture, may have falsely depressed results. Performed By: #### L 500.10775, L500.23433, L500.58298, L500.06779, L500.82406 ####[facility] [id number] [place], [place] [address]Fi# [phone] Glucose [Mass/Vol] 95 mg/dL Normal 70-100 [facility] Comment on above: Order Comment: Miguel s: M Result Comment: 70-1 00- Normal Fasting; 100-125 Impaired Fasting; greater than 126 on more than one result- Diabetes. ADA guidelines. Results may be falsely elevated after the administration of Sulfapyridine. Results may be falsely depressed after the administration of Sulfasalazine. Performed By: #### L 500.98543, L500.52804, L500.93702, L500.10939, L500.50594 ####[facility] [id number] [place], [place] [address]Yb# [phone] Potassium [Moles/Vol] 4.1 mmol/L Normal 3.5-5.1 [facility] Comment on above: Order Comment: Campu s: M Result Comment: Slig ht Hemolysis, Result may be affected. Performed By: #### L 500.72038, L500.33306, L500.92674, L500.05491, L500.72600 ####[facility] [id number] [place], [place] [address]Hf# [phone] Sodium [Moles/Vol] 142 mmol/L Normal 136-145 [facility] Comment on above: Order Comment: Campu s: M Performed By: #### L 500.62852, L500.13957, L500.95070, L500.56468, L500.39267 ####[facility] [id number] [place], [place] [address]Fx# [phone] Urea nitrogen [Mass/Vol] 22 mg/dL Normal 7-26 [facility] Comment on above: Order Comment: Campu s: M Performed By: #### L 500.57615, L500.25142, L500.61503, L500.12550, L500.88394 ####[facility] [id number] [place], [place] [address]Lt# [phone] Urea nitrogen/Creatinine [Mass ratio] 31 mg/mg High 15-24 [facility] Comment on above: Order Comment: Campu s: M Performed By: #### L 500.03708, L500.92306, L500.20822, L500.80188, L500.17272 ####[facility] [id number] [place], [place] [address]Ra# [phone] CBCon 08-30-2020 Erythrocyte distribution width (RBC) [Ratio] 14.6 % High 11-14.5 [facility] Comment on above: Order Comment: Campu s: M Performed By: #### L 200.46768 ####[facility] [id number] [place] [address]Nf# [phone] Hematocrit (Bld) [Volume fraction] 37.7 % Normal 35.0-47.0 [facility] Comment on above: Order Comment: Campu s: M Performed By: #### L 200.66688 ####[address] [address]Fr# [phone] Hemoglobin (Bld) [Mass/Vol] 11.7 g/dL Normal 11.5-15.5 [facility] Comment on above: Order Comment: Campu s: M Performed By: #### L 200.56058 ####[address] [address]Vo# [phone] MCHC (RBC) [Mass/Vol] 31.0 g/dL Low 32.0-36.0 [facility] Comment on above: Order Comment: Campu s: M Performed By: #### L 200.17093 ####[address] [address]Wd# [phone] MCV (RBC) [Entitic vol] 85.5 fL Normal 80.0-99.0 [facility] Comment on above: Order Comment: Campu s: M Performed By: #### L 200.63094 ####[facility] [id number] [place] [address]Io# [phone] Nucleated RBC/100 WBC (Bld) [Ratio] 0.0 % Normal Less than 1 [facility] Comment on above: Order Comment: Campu s: M Performed By: #### L 200.82625 ####[facility] [id number] [place] [address]Lp# [phone] Platelet mean volume (Bld) [Entitic vol] 10.7 fL Normal 9.4-12.4 [facility] Comment on above: Order Comment: Campu s: M Performed By: #### L 200.01622 ####[facility] [id number] [place], [place] [address]By# [phone] PLT 298 K/CU MM Normal 150-450 [facility] [place] Comment on above: Order Comment: Campu s: M Performed By: #### L 200.53029 ####[facility] [id number] [place], [place] [address]Re# [phone] RBC 4.41 M/CU MM Normal 3.90-5.30 [facility] Comment on above: Order Comment: Campu s: M Performed By: #### L 200.38893 ####[facility] [id number] [place], [place] [address]Pa# [phone] WBC 7.6 K/CUMM Normal 4.5-11.0 [facility] Comment on above: Order Comment: Campu s: M Performed By: #### L 200.93200 ####[facility] [id number] [place] [address]Nj# [phone] GFR ESTon 08-30-2020 IF AMER Greater than 60 Normal [facility] [place] Comment on above: Order Comment: Campu s: M Performed By: #### L 500.45221, L500.42509, L500.53135, L500.65510, L500.96896 ####[facility] [id number] [place], [place] [address]Uq# [phone] IF non-AFR AMER Greater than 60 Normal [facility] [place] Comment on above: Order Comment: Campu s: M Performed By: #### L 500.93961, L500.93969, L500.62042, L500.12380, L500.78656 ####[facility] [id number] [place], [place] [address]Ec# [phone] LIPIDon 08-30-2020 CHOL 157 MG/dL Normal 0-199 [facility] Comment on above: Order Comment: Campu s: M Performed By: #### L 500.89975, L500.02816, L500.52915, L500.74588, L500.40407 ####[facility] [id number] [place], [place] [address]Pd# [phone] Cholesterol in HDL [Mass/Vol] 29 mg/dL Low GREATER THAN 40 [facility] Comment on above: Order Comment: Miguel Ochoa Result Comment: Ana ents receiving Metamizole prior to venipuncture, may have falsely depressed results. Performed By: #### L 500.00513, L500.11322, L500.77101, L500.62859, L500.19951 ####[facility] [id number] [place], [place] [address]Rd# [phone] Cholesterol in LDL [Mass/Vol] 83 mg/dL Normal [facility] Comment on above: Order Comment: Miguel Ochoa Result Comment: ___C HOLESTEROL/HDL RATIO RISK___ CHD RISK = Total CHOL LDL HDL (CHOL/HDL) Recommended <200 <130 >40 <3.4 Borderline 200-239 130-159 3.4-4.99 High >240 >160 >5.0 Performed By: #### L 500.70783, L500.25041, L500.63634, L500.68116, L500.19152 ####[facility] [id number] [place], [place] [address]Ko# [phone] Triglyceride [Mass/Vol] 222 mg/dL High 30-149 [facility] Comment on above: Order Comment: Miguel s: M Result Comment: Ana ents receiving either N-Acetylcysteine (NAC) or Metamizole prior to venipuncture, may have falsely depressed results. Performed By: #### L 500.01509, L500.96512, L500.06398, L500.09972, L500.03079 ####[facility] [id number] [place], [place] [address]Dd# [phone] MAGNESIUMon 08-30-2020 Magnesium [Mass/Vol] 2.1 mg/dL Normal 1.6-2.6 [facility] Comment on above: Order Comment: Miguel s: M Performed By: #### L 500.76469, L500.41695, L500.42498, L500.76882, L500.14526 ####[facility] [id number] [place], [place] [address]Gb# [phone] [facility] Name: JENNI ALBRIGHT [address] [facility] [address] Date of : [address] [address] Unit Number: [id number] Progress Note-Hospitalist Patient Status: ADM Michael Attending Doctor: Yesenia Casanova DO Service Date: 08/30/20 1513 Chief Complaint Chief Complaint Dyspnea palpitation Subjective S: (2 ROS minimum) Seen and examined. Report shortness of breath is improved. Denies any further palpitation no chest pain no nausea vomiting no fevers. Overall feels better discussed with the staff. 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 Dyspnea Dyspnea at rest on exertion etiology unclear cardiology on board. CT chest negative for PE or pleural effusion. Coronary artery disease status post CABG multiple sclerosis on baclofen, Rebif Hypertension on Cozaar and Coreg Hyper lipidemia on TriCor, Pravachol DVT status post IVC filter DC Disposition Plan Home with home health care Disclaimer This dictation was created using voice recognition software. Phonetic and/or minor grammatical errors may exist. eSign Date and Time Isamar Choudhury MD Verified/Reviewed by 08/30/20 1609 [facility] Progress Note-Hospitalist Normal [facility] PTARon 08-30-2020 PT Assessment Report Normal [facility] TROPONIN Ion 08-30-2020 TROPONIN I 2.8 pg/mL Normal 0-34 [facility] Comment on above: Order Comment: Miguel s: M Result Comment: NOTE NEW NORMAL RANGE DUE TO REAGENT CHANGE This assay uses different antibodies than our current assay, and assays, even by the same post partum nurse may recognize different regions of the antibody and cannot be used interchangeably. Expect results of this assay to run higher than the previous assay. Performed By: #### L 550.24679 ####[facility] [id number] [place], [place] [address]Yo# [phone] TROPONIN I 2.7 pg/mL Normal 0-34 [facility] Comment on above: Order Comment: Campu s: M Result Comment: NOTE NEW NORMAL RANGE DUE TO REAGENT CHANGE This assay uses different antibodies than our current assay, and assays, even by the same post partum nurse may recognize different regions of the antibody and cannot be used interchangeably. Expect results of this assay to run higher than the previous assay. Performed By: #### L 550.59738 #### [facility] [address] [place] [address] TSHon 08-30-2020 TSH 3.976 UIU/ML High 0.358-3.740 [facility] Comment on above: Order Comment: Campu s: M Result Comment: 3rd generation ultra sensitive TSH Performed By: #### L 500.46648, L500.86378, L500.21247, L500.50940, L500.26212 ####[facility] [id number] [place], [place] [address]Jf# [phone] ABGPEGLAon 08-29-2020 ABG BE 0.6 MML/L Normal -2.0-2.0 [facility] Comment on above: Order Comment: Delanou s: M Performed By: #### L 100.25252 #### [facility] [place] [address] ABG COHBA 0.7 % Normal 0-10 [facility] Comment on above: Order Comment: Delanou s: M Performed By: #### L 100.51943 #### [facility] [place] [address] ABG GLU 134 MG/DL High 60-80 [facility] Comment on above: Order Comment: Campu s: M Performed By: #### L 100.60878 #### [facility] [address] [place] [address] ABG MET 0.3 % Low 0.4-1.5 [facility] Comment on above: Order Comment: Campu s: M Performed By: #### L 100.08869 #### [facility] [address] [place] [address] ABG O2 CAPACITY 17.3 mL/dL Normal [facility] Comment on above: Order Comment: Campu s: M Performed By: #### L .47591 #### [facility] [address] [place] [address] ABG O2 CONTENT 16.8 mL/dL Normal 15.7-21.6 [facility] Comment on above: Order Comment: Campu s: M Performed By: #### L .00266 #### [facility] [address] [place] [address] ABG O2HB SAT 94.6 % Normal 90-100 [facility] Comment on above: Order Comment: Campu s: M Performed By: #### L .61021 #### [facility] [address] [place] [address] ABG PCO2 35.7 MMHG Normal 35-45 [facility] Comment on above: Order Comment: Campu s: M Performed By: #### L .10887 #### [facility] [address] [place] [address] ABG PH 7.45 Normal 7.35-7.45 [facility] Comment on above: Order Comment: Campu s: M Performed By: #### L .76129 #### [facility] [address] [place] [address] ABG PO2 74 MMHG Low 80-100 [facility] Comment on above: Order Comment: Campu s: M Performed By: #### L 100.49718 #### [facility] [address] [place] [address] ABG REDUCED HGB 4.4 % Normal 0-5 [facility] Comment on above: Order Comment: Campu s: M Performed By: #### L 100.22508 #### [facility] [address] [place] [address] JANET TEST Positive Normal [facility] Comment on above: Order Comment: Campu s: M Performed By: #### L 100.38074 #### [facility] [address] [place] [address] Body temperature 98.6 [degF] Normal [facility] Comment on above: Order Comment: Campu s: M Performed By: #### L 100.57934 #### [facility] [address] [place] [address] EQUIPMENT NONE Normal [facility] Comment on above: Order Comment: Campu s: M Performed By: #### L 100.68808 #### [facility] [address] [place] [address] HCO3 (Bld) [Moles/Vol] 24.3 mmol/L Normal 22-26 [facility] Comment on above: Order Comment: Campu s: M Performed By: #### L 100.13073 #### [facility] [address] [place] [address] Hemoglobin (Bld) [Mass/Vol] 12.6 g/dL Normal 10-16 [facility] Comment on above: Order Comment: Campu s: M Performed By: #### L 100.14529 #### [facility] [address] [place] [address] IONIZED CA 1.38 MMOL/L High 1.13-1.32 [facility] Comment on above: Order Comment: Campu s: M Performed By: #### L 100.78193 #### [facility] [address] [place] [address] LACTATE BLOOD 1.70 MMOL/L Normal 0.40-2.00 [facility] Comment on above: Order Comment: Campu s: M Performed By: #### L 100.45615 #### [facility] [address] [place] [address] Potassium [Moles/Vol] 3.7 mmol/L Normal 3.5-5.0 [facility] Comment on above: Order Comment: Campu s: M Performed By: #### L 100.67123 #### [facility] [address] [place] [address] SAMPLE SITE R RADIAL Normal [facility] Comment on above: Order Comment: Campu s: M Performed By: #### L 100.82354 #### [facility] [address] [place] [address] SAMPLE TYPE ARTERIAL Normal [facility] Comment on above: Order Comment: Campu s: M Performed By: #### L 100.60184 #### [facility] [address] [place] [address] Sodium [Moles/Vol] 141 mmol/L Normal 136-148 [facility] Comment on above: Order Comment: Campu s: M Performed By: #### L 100.43218 #### [facility] [address] [place] [address] ACP.[email or web address] 08-29-2020 ACP.[email or web address].U [facility] Patient Name: JENNI ALBRIGHT [facility] Date of : [address] [address] Unit Number: [id number] Advance Care Planning Note Patient Status: REG ER Attending Doctor: Stephon Arias,Emergency Physicians Service Date: 08/29/201735 Advance Care Planning Discussion Date 08/29/20 Diagnosis Dyspnea, hypoxia, history of CAD, pacemaker, multiple sclerosis These active diagnoses are of sufficient risk that focused discussion on advance care planning is indicated in order to allow the patient to thoughtfully consider personal goals of care and if situations arise that prevent the ability to personally give input to ensure appropriate representation of their personal desires through documentation or informed surrogate decision makers. Present Participants: Patient and Discussion: Discussed at length with patient and family regarding wishes in the event of an emergency. States does have a living well and knows wishes. Patient states that at this time they would like all measures done to remain alive if their heart were to stop or they were to stop breathing including chest compressions, shocks, intubation and mechanical ventilation if needed. Patient would like to remain a full code in the event of an emergency at this time. They are aware they can adjust CODE STATUS at any time if circumstances change. Patient okay for short-term use of ventilator if needed but does not wish to be maintained on machines long-term. aware. Discussion time greater than 16 minutes. Advance Care Plan Time Spent 16 Disclaimer This dictation was created using voice recognition software. Phonetic and/or minor grammatical errors may exist. eSign Date and Time Alissa Sommer Verified/Reviewed by 08/29/201736 Normal [facility] Advance Care Planning Note Normal [facility] 08-29-2020 Anion gap [Moles/Vol] 6 mmol/L Normal 5-16 [facility] Comment on above: Order Comment: Campu s: M Performed By: #### L 500.85457, L500.57628, L500.62981, L500.97814 #### [facility] [address] [place] [address] Calcium [Mass/Vol] 11.0 mg/dL High 8.5-10.5 [facility] Comment on above: Order Comment: Campu s: M Result Comment: NOTE NEW NORMAL RANGE DUE TO REAGENT CHANGE Performed By: #### L 500.72028, L500.37944, L500.83688, L500.40224 #### [facility] [place] [address] Chloride [Moles/Vol] 110 mmol/L High 98-107 [facility] Comment on above: Order Comment: Campu s: M Performed By: #### L 500.15984, L500.75491, L500.75132, L500.16557 #### [facility] [address] [place] [address] CO2 [Moles/Vol] 27.0 mmol/L Normal 21-32 [facility] Comment on above: Order Comment: Campu s: M Performed By: #### L 500.56602, L500.60924, L500.86931, L500.22757 #### [facility] [address] [place] [address] Creatinine [Mass/Vol] 0.77 mg/dL Normal 0.510-0.950 [facility] Comment on above: Order Comment: Campu s: M Result Comment: Ana ents receiving either N-Acetylcysteine (NAC) or Metamizole prior to venipuncture, may have falsely depressed results. Performed By: #### L 500.97916, L500.01398, L500.45600, L500.04487 #### [facility] [address] [place] [address] Glucose [Mass/Vol] 121 mg/dL High 70-100 [facility] Comment on above: Order Comment: Campu s: M Result Comment: 70-1 00- Normal Fasting; 100-125 Impaired Fasting; greater than 126 on more than one result- Diabetes. ADA guidelines. Results may be falsely elevated after the administration of Sulfapyridine. Results may be falsely depressed after the administration of Sulfasalazine. Performed By: #### L 500.12908, L500.35806, L500.45031, L500.73798 #### [facility] [address] [place], [place] [address] Potassium [Moles/Vol] 3.8 mmol/L Normal 3.5-5.1 [facility] Comment on above: Order Comment: Campu s: M Performed By: #### L 500.69095, L500.51185, L500.34873, L500.74903 #### [facility] [address] [place] [address] Sodium [Moles/Vol] 143 mmol/L Normal 136-145 [facility] Comment on above: Order Comment: Campu s: M Performed By: #### L 500.86479, L500.79822, L500.53970, L500.62035 #### [facility] [address] [place] [address] Urea nitrogen [Mass/Vol] 24 mg/dL Normal 7-26 [facility] Comment on above: Order Comment: Campu s: M Performed By: #### L 500.53391, L500.07802, L500.47598, L500.56819 #### [facility] [address] [place] [address] Urea nitrogen/Creatinine [Mass ratio] 31 mg/mg High 15-24 [facility] Comment on above: Order Comment: Campu s: M Performed By: #### L 500.70498, L500.49859, L500.21713, L500.70462 #### [facility] [address] [place] [address] CBC W/DIFFon 08-29-2020 BASO ABS 0.00 K/CU MM Normal 0-0.2 [facility] Comment on above: Order Comment: Campu s: M Performed By: #### L 500.17152 #### [facility] [address] [place] [address] Basophils/100 WBC (Bld) 0.6 % Normal 0-2 [facility] Comment on above: Order Comment: Campu s: M Performed By: #### L 500.69612 #### [facility] [address] [place], [place] [address] EOS ABS 0.10 K/CU MM Normal 0-0.5 [facility] Comment on above: Order Comment: Campu s: M Performed By: #### L 500.75797 #### [facility] [address] [place] [address] Eosinophils/100 WBC (Bld) 1.7 % Normal 0-5 [facility] Comment on above: Order Comment: Campu s: M Performed By: #### L 500.18724 #### [facility] [address] [place] [address] Erythrocyte distribution width (RBC) [Ratio] 14.7 % High 11-14.5 [facility] Center Comment on above: Order Comment: Campu s: M Performed By: #### L [id number] #### [facility] [address] [place] [address] Hematocrit (Bld) [Volume fraction] 38.1 % Normal 35.0-47.0 [facility] Comment on above: Order Comment: Campu s: M Performed By: #### L 500.61567 #### [facility] [address] [place] [address] Hemoglobin (Bld) [Mass/Vol] 12.1 g/dL Normal 11.5-15.5 [facility] Comment on above: Order Comment: Campu s: M Performed By: #### L 500.32934 #### [facility] [address] [place] [address] IMMATR GRAN ABS 0.00 K/CU MM Normal Less than 2 [facility] Comment on above: Order Comment: Campu s: M Performed By: #### L 500.85591 #### [facility] [address] [place] [address] IMMATURE GRAN % 0.3 % Normal Less than 2 [facility] Comment on above: Order Comment: Campu s: M Performed By: #### L 500.62074 #### [facility] [address] [place], [place] [id number] LYMPH ABS 2.50 K/CU MM Normal 0.9-4.4 [facility] Comment on above: Order Comment: Campu s: M Performed By: #### L 500.60890 #### [facility] [address] [place] [address] Lymphocytes/100 WBC (Bld) 34.3 % Normal 20-40 [facility] Comment on above: Order Comment: Campu s: M Performed By: #### L 500.28492 #### [facility] [address] [place] [address] MCHC (RBC) [Mass/Vol] 31.8 g/dL Low 32.0-36.0 [facility] Comment on above: Order Comment: Campu s: M Performed By: #### L 500.74151 #### [facility] [address] [place] [address] MCV (RBC) [Entitic vol] 86.2 fL Normal 80.0-99.0 [facility] Comment on above: Order Comment: Campu s: M Performed By: #### L 500.27514 #### [facility] [address] [place] [address] MONO ABS 0.70 K/CU MM Normal 0.1-1.1 [facility] Comment on above: Order Comment: Campu s: M Performed By: #### L 500.94151 #### [facility] [address] [place], [place] [id number] Monocytes/100 WBC (Bld) 9.2 % Normal 2-10 [facility] Comment on above: Order Comment: Campu s: M Performed By: #### L 500.90244 #### [facility] [address] [place] [address] NEUTROPHIL ABS 3.90 K/CU MM Normal 2.0-8.3 [facility] Comment on above: Order Comment: Campu s: M Performed By: #### L 500.15770 #### [facility] [address] [place], [place] [id number] Neutrophils/100 WBC (Bld) 53.9 % Normal 45-75 [facility] Comment on above: Order Comment: Campu s: M Performed By: #### L 500.92745 #### [facility] [address] [place] [address] Nucleated RBC/100 WBC (Bld) [Ratio] 0.0 % Normal Less than 1 [facility] Comment on above: Order Comment: Campu s: M Performed By: #### L 500.93242 #### [facility] [address] [place] [address] Platelet mean volume (Bld) [Entitic vol] 10.4 fL Normal 9.4-12.4 [facility] Comment on above: Order Comment: Campu s: M Performed By: #### L 500.89401 #### [facility] [address] [place] [address] PLT 297 K/CU MM Normal 150-450 [facility] Comment on above: Order Comment: Campu s: M Performed By: #### L 500.93190 #### [facility] [address] [place], [place] [id number] RBC 4.42 M/CU MM Normal 3.90-5.30 [facility] Comment on above: Order Comment: Campu s: M Performed By: #### L 500.11540 #### [facility] [address] [place], [place] [address] WBC 7.2 K/CUMM Normal 4.5-11.0 [facility] Comment on above: Order Comment: Miguel s: Don Performed By: #### L 500.41762 #### [facility] [address] [place] [address] CONS.Oriana 08-29-2020 CONS.MOLLY [facility] Patient Name: JENNI ALBRIGHT [facility] Date of : [address] [address] Unit Number: [id number] Consultation-Cardiology Patient Status: ADM Michael Attending Doctor: Yesenia Casanova DO Service Date: 08/29/202125 History of Present Illness Referring Physician Dana Navarrete DO Consulted Provider Da De La Rosa MD Source of Information Patient/Medical records Reason for Consult Dyspnea at rest, known to you History of Present Illness This is a 69 year old female patient known to Dr. De La Rosa with past medical history of coronary artery disease status post CABG 07/22/13, hypertension, hyperlipidemia, paroxysmal atrial fibrillation on Eliquis, Biventricular dual chamber pacemaker implant for CHB on 09/06/15, history of multiple sclerosis, pericardial effusion, TIAs, DVT LE, obstructive sleep apnea, HFrEF 2016: LVEF 35-40% on echo improving to 55% on 08/01, and GI bleed on Xarelto on August 2015 who presents to the ED on 08/29/2020 with complaints of dyspnea for the past couple weeks with exertion, but now also with rest over the past couple days. This was accompanied by palpitations, weakness, fatigue. Patient denies chest pain, cough, dizziness/lightheadednes s, syncope, edema, nausea, vomiting, diarrhea, fever, night sweats, chills, diaphoresis, or weight changes. ED EVAL: VS: Temperature: 97.9 F (36.6 C). Pulse: 81. Respiratory Rate: 22. Blood-pressure: 148/67. Oxygen Saturation: 96%. CBC W/DIFF, information as of 08/29/2020, 10:55 am 86.2 / 12.1 / 7.2 297 / 38.1 / N:53.9 BMP, information as of 08/29/2020, 11:09 am 143 --------+--------+------ ---- 121* Anion Gap = 6 3.8 BUN/CREA: 31; CALCIUM TOTAL: 11.0 Mg/Dl AB.45/35.7/74/24.3 Troponin I: Less than 2.5 proBNP: 88 Respiratory PCR and SARS-CoV2: Negative Chest x-ray: No acute process. CTA chest: No evidence of pulmonary artery embolism. No acute process within the chest. Cardiology consulted for dyspnea at rest, known to you. Past Medical/Surgical Hx Medical Records Reviewed Yes Past Medical History Summary CAD s/p CABG Hypertension- 1981 Hyperlipidemia Mitral Valve Prolapse Atrial fibrillation on Eliquis GERD Multiple sclerosis Pericardial effusion TIAs DVT LE Obstructive sleep apnea HFrEF 2015- LVEF 35-40% on echo Questionable dementia Past Surgical History Summary CABG 07-22-2013 Appendectomy Right Rotator Cuff Surgery Hysterectomy [employer] Biventricular dual-chamber IMCU NURSE Pacemaker Implant 09/04/15---Dr. Ayala Carpal tunnel repair IVC filter Family/Social History Family History MOTHER, , Age Unknown; Cause: Heart attack. FH DIABETES FH HEART ATTACK SISTER FH HEART ATTACK FH: heart disease FH: hypertension FH: uterine cancer SISTER FH: multiple sclerosis BROTHER, , Age Unknown; Cause: HEART ATTACK. FH HEART ATTACK FH: aneurysm BROTHER FH: heart disease FM BYPASS FATHER, , Age Unknown; Cause: CANCER. FH CANCER Relation not specified for: FH VALVE REPLACEMENT Social Hx Patient is , remote smoker, rarely drinks and denies any illicit drug use Advance Directives Advance Directives Full Code Allergies/Home Medications Allergies Coded Allergies: GLATIRAMER (COPOLYMER 1) (From COPAXONE) (SWELLING/ HIVES AROUND INJECTION SITE 08/30/20) NO KNOWN DRUG ALLERGIES (11/24/14) Uncoded Allergies: [id number] 1/* Normal Metabolizer (DO NOT DELETE 04/27/15) CYP2C9 1/* Normal Metabolizer (DO NOT DELETE 04/27/15) CYP2D6 / XN* Rapid Metabolizer (DO NOT DELETE 04/27/15) VKORC1 -1639G>A G/G* Low Sensitivity (BB) - High dose requir (DO NOT DELETE 04/27/15) Home Medications Apixaban* (Eliquis Tab*) 5 MG TABLET 5 MG PO BID, Ref 0 (Reported) Entered as Reported by JJ COREY on 08/29/201725 Last Action: Continued on 08/29/202042 by YESENIA CASANOVA Ascorbic Acid* (Vitamin C 500MG Tab*) 500 MG CAPSULE.ER 1,000 MG PO QDAY, Ref 0 ( Reported) Entered as Reported by JJ COREY on 08/29/201743 Last Action: Continued on 08/29/202042 by YESENIA CASANOVA Aspirin* (Ecotrin 81MG Tab*) 81 MG TABLET.DR 81 MG PO QDAYWM, Ref 0 (Reported) Entered as Reported by JJ COREY on 08/29/201740 Last Action: Continued on 08/29/202042 by YESENIA CASANOVA Baclofen* (Lioresal Tab*) 20 MG TABLET 20 MG PO BID, Ref 0 (Reported) Entered as Reported by ANGELIQUE AKHTAR on 11/24/14 175 Last Taken: TOOK AM DOSE on 08/29/20 Last Action: Continued on 08/29/202042 by YESENIA CASANOVA Baclofen* (Lioresal Tab*) 20 MG TABLET 40 MG PO QHS, Ref 0 (Reported) Entered as Reported by JJ COREY on 08/29/201740 Last Action: Continued on 08/29/202042 by YESENIA CASANOVA Carvedilol* (Coreg 25MG Tab*) 25 MG TABLET 12.5 MG PO BIDWM, Ref 0 (Reported) Entered as Reported by ANGELIQUE AKHTAR on 11/24/14 1800 Last Taken: TOOK AM DOSE on (more content not included)... [facility] Consultation-Cardiolog y [facility] CT ANG THOR W/POST PROCon CT ANG THOR W/POST PROC CT ANG THOR W/POST PROC Ordering Physician: Meg Cooley 08/29/2020 12:[address] ANGIOGRAPHY OF THE THORAX WITH MULTIPLANAR AND 3-D RECONSTRUCTION Clinical Statement: Shortness of breath, tachypnea. Comparison: Portable chest 08/29/2020, PA and lateral chest 09/07/2015, CT angiography of the thorax 11/14/2014. TECHNIQUE: Contiguous axial images were acquired through the chest using bolus tracking technique centered on the main pulmonary artery following the uneventful administration of 85 cc Isovue-370 intravenously. Coronal and sagittal reconstructions were performed. 3-D reconstructed MIP images were created and reviewed by the radiologist on an independent workstation (Morgan [place]). FINDINGS: There is satisfactory pulmonary artery opacification with no suspicious filling defect or vessel cut off to indicate pulmonary artery embolism. There are postsurgical changes of previous open heart surgery. Sternal wires are intact. There is a biventricular pacemaker generator in the upper left chest with associated artifact. The heart is upper normal in size. The thoracic aorta is normal in caliber. The descending thoracic aorta is tortuous. There are scattered atherosclerotic calcifications present. There are coronary artery calcifications. The esophagus is normal in course and caliber. There are no pathologically enlarged thoracic lymph nodes. There are scattered areas of mild scarring or subsegmental atelectasis. No consolidation identified. No pleural effusions. The major airways are unremarkable. There is a rightward curvature of the spine at the thoracolumbar junction. Degenerative changes are present at both shoulders. No acute osseous abnormalities. Images through the upper abdomen are unremarkable. IMPRESSION: No evidence of pulmonary artery embolism. No acute process within the chest. Dictated by Inventory Control Associate: Carlos A Montalvo DO Reviewed and Signed by: Moises Dowd MD ---- Electronic Signature on File ---- Signed By: Moises Dowd MD [email or web address] Dictated: 08/29/2020 3:44 PM Signed: 08/29/2020 4:09 PM Reported By: MOISES DOWD M.D. Signed By: MOISES DOWD M.D. [facility]ogram Procedure Date and T nicolás: 08/29/20 1058 Test Reason : Blood Pressure : / mmHG Vent. Rate : 083 BPM Atrial Rate : 083 BPM P-R Int : 134 ms QRS Dur : 130 ms QT Int : 408 ms P-R-T Axes : 049 -44 080 degrees QTc Int : 479 ms Atrial-sensed ventricular-paced rhythm Abnormal ECG When compared with ECG of 07-SEP-2015 06:49, Vent. rate has increased BY 3 BPM Confirmed by NICOLE MATHEW A. ([id number]) on 08/29/2020 6:12:21 PM Referred By: Emergency Stephon Arias Confirmed By:Saida MATHEW M.D.FACC Preet DDandT: 08/29/20 1058 TDandT: [facility]: [facility] REC #: [id number] [place] [address] ADMIT DATE: DISCHARGE DATE: ATTENDING PHY: Stephon Arias,Emergency Physi ELECTROCARDIOGRAM REPORT CLB cc: [facility]: [facility] MED[facility] REC #: [id number] [place] [address] ADMIT DATE: DISCHARGE DATE: ATTENDING PHY: Stephon Arias,Emergency Physi [facility]LECTROCARDIOGRAM [facility] REPORT This is a preliminary report only, as the practitioner review and authentication has not occurred. Normal [facility] ER PHYSICIAN ASSESSMENT RECORDS : FlexChartData Event Time: 08/29/2020 16:00 ELP Status: Signed [facility] Jenni Albright [[id number] ] Mid-Level Chart (V2b) / 1950 Chart created at 08/29/2020 15:51 by Meg Cooley Chart closed at 08/29/2020 17:03 Entry in Emergency Department at 08/29/2020 10:25 Patient Name: Jenni Albright Record Number: [id number] Date: 08/29/2020 15:51 Entered Department at: 08/29/2020 10:25 Patient Seen at: 08/29/2020 14:05 Decision to Admit at: 08/29/2020 17:03 Historian: Family and Patient PCP: NANCY Chief Complaint:C/O SHORTNESS OF BREATH PAST FEW DAYS AND WORSENING TODAY. Nursing triage/initial assessment reviewed and confirmed and Initial Vital Signs reviewed. Temperature: 97.9 F (36.6 C). Pulse: 81. Respiratory Rate: 22. Blood-pressure: 148/67. Oxygen Saturation: 96%. History of Present Illness: Is a 69-year-old female with history of "fluid around the heart" NE MS presents to complaint shortness of breath. Is been ongoing for 2 weeks. Worsening the past few days. Initially started when patient was at [facility] getting a CT scan of her head. They went to lay her flat. She did not receive IV contrast at the time. They are not able to complete the [facility] PATIENT NAME: JENNI ALBRIGHT [address] MEDICAL REC #: [id number] [place] [id number] EMERGENCY DEPARTMENT REPORT EMERGENCY DEPARTMENT PHYSICIAN scan due to patients orthopnea. She has not noticed any edema to the legs. She was admitted for 3 days and had a work-up. She is on Eliquis. She was seen by her dot net developer today and they sent her in for evaluation. Denies fever chills abdominal pain chest pain palpitations weight gain lower extremity edema. They cannot determine the cause of her shortness of breath. She used to have shortness of breath with exertion now she has it at rest. No other complaints HPI Elements: Associated symptoms: HPI. Review of Systems. Respiratory: positive for Dyspnea All other systems reviewed and negative.. Past History, Medications, Allergies, Social History and Family History reviewed in nurses note. Medications: Reviewed RN Note. Allergies: Reviewed RN Note No Known Allergies Social History: Reviewed RN Note. Family History: Reviewed RN Note Physical Examination: General: Alert and Well Developed; Patient laying on exam table. Appears short of breath. She occasionally hyperventilates. HEENT: Normal ENT inspection. Eyes: Lids Normal; . Neck: No Lymphadenopathy, No Meningismus and Supple Respiratory: No Resp Distress and Normal Breath Sounds; No wheezing rhonchi rales. Cardio-Vascular: No murmur, No rub and RRR Abdomen: No Organomegaly, Non-tender and Soft Back: No CVA tenderness, No Midline Tenderness and Non-tender Extremity: No edema and Normal Equal pulses; No edema present bilateral cast. Nonerythematous edematous warm to touch. Negative Homans sign. Neurological: Alert, Oriented X3 and No Gross Weakness Skin: No rash, No Petechiae, Warm and Dry Psychological: Mood/Affect Normal and Normal Memory/Judgment [facility] PATIENT NAME: JENNI ALBRIGHT [address] MEDICAL REC #: [id number] [place] [address] EMERGENCY DEPARTMENT REPORT EMERGENCY DEPARTMENT PHYSICIAN BMP, information as of 08/29/2020, 11:09 am 143 --------+--------+------ --andlt; 121* Anion Gap = 6 3.8 BUN/CREA: 31; CALCIUM TOTAL: 11.0 Mg/Dl CBC W/DIFF, information as of 08/29/2020, 10:55 am 86.2 / 12.1 / 7.2 andgt;------andlt; 297 / 38.1 / N:53.9 BASO ABS: 0.00 K/Cu Mm; BASOPHIL %: 0.6 %; EOS ABS: 0.10 K/Cu Mm; EOSINOPHIL %: 1.7 %; IMMATR GRAN ABS: 0.00 K/Cu Mm; IMMATURE GRAN %: 0.3 %; LYMPH %: 34.3 %; LYMPH ABS: 2.50 K/Cu Mm; MCHC: 31.8 Gm/Dl; MONO ABS: 0.70 K/Cu Mm; MONOCYTE %: 9.2 %; MPV: 10.4; NEUTROPHIL ABS: 3.90 K/Cu Mm; NRBC: 0.0 %; RBC: 4.42 M/Cu Mm; RDW: 14.7 TROPONIN I, information as of 08/29/2020, 10:55 am TROPONIN I: Less Than 2.5 Pg/Ml PBNP TEST, information as of 08/29/2020, 10:56 am PBNP TEST: 88 Pg/Ml SARS-COV-2 PCR, information as of 08/29/2020, 12:37 pm SARS-COV-2 PCR: Not Detected ABGPEGLA, information as of 08/29/2020, 12:12 pm +------+-----+-----+---- -+-----+-----+-----+---- -+-----+ +------+-----+-----+---- -+-----+-----+-----+---- -+-----+ +------+-----+-----+---- -+-----+-----+-----+---- -+-----+ ABG COHBA: 0.7 ABG GLU: 134 ABG MET: 0.3 ABG O2 CAPACITY: 17.3 ABG O2 CONTENT: 16.8 [facility] PATIENT NAME: ALBRIGHTJENNI [address] MEDICAL REC #: [id number] [place] [address] ACCOUNT (more content not included)... Normal [facility] GFR ESTon 08-29-2020 IF AMER Greater than 60 [facility] Comment on above: Order Comment: Campu s: M Performed By: #### L 500.03688, L500.42250, L500.98205, L500.37525 #### [facility] [address] [place] [address] IF non-AFR AMER Greater than 60 [facility] Comment on above: Order Comment: Campu s: M Performed By: #### L 500.24821, L500.84582, L500.68341, L500.13468 #### [facility] [address] [place] [address] HP.[email or web address] 08-29-2020 Admission-H&P Normal [facility] HP.IMS.ADM [facility] Patient Name: JENNI ALBIRGHT [address] [place] [address] Date of : [address] [address] Unit Number: [id number] Admission-HandP Patient Status: ADM Michael Attending Doctor: Yesenia Casanova DO Service Date: 08/29/20 1726 History of Present Illness Chief Complaint/Present Illness: DYSPNEA History of Present Illness This is a pleasant 69-year-old obese female patient of , with history of multiple sclerosis, CAD status post CABG, history of pacemaker, DVT status post IVC filter, who presents to [facility] with shortness of breath over the past few days worsening in nature, orthopnea, dyspnea at rest. Patient was just admitted at [facility] THE END OF JULY for chest pain work-up and had an echo and stress done at that time which showed no acute findings. Patient was at her color shop helper follow-up, and they recommended she come to [...] on 2 L of oxygen for comfort. Physician Attestation Statement of Attestation I confirm that I have evaluated the patient, reviewed the history and physical, medications, diagnostic results, physical exam, assessment and plan of care of the patient. Past Medical/Surgical Hx Past Medical History Hypertension, multiple sclerosis, CAD, hyperlipidemia, acid reflux, pericardial effusion, TIAs, DVT in the leg, sleep apnea Past Surgical History Cardiac bypass x2, carpal tunnel repair, hysterectomy, appendectomy, pacemaker, IVC filter for blood clots Family/Social History Family History MOTHER, , Age Unknown; Cause: Heart attack. FH DIABETES FH HEART ATTACK SISTER FH HEART ATTACK FH: heart disease FH: hypertension FH: uterine cancer SISTER FH: multiple sclerosis BROTHER, , Age Unknown; Cause: HEART ATTACK. FH HEART ATTACK BROTHER FH: heart disease FM BYPASS FATHER, , Age Unknown; Cause: CANCER. FH CANCER Relation not specified for: FH VALVE REPLACEMENT Family Hx Other/Comment Mother had heart disease, father cancer Social Hx Patient is , remote smoker, rarely drinks and denies any illicit drug use Advance Directives Advance Directives Full Code Allergies/Home Medications Allergies Coded Allergies: NO KNOWN DRUG ALLERGIES (11/24/14) Uncoded Allergies: [id number] 1/* Normal Metabolizer (DO NOT DELETE 04/27/15) CYP2C9 1/* Normal Metabolizer (DO NOT DELETE 04/27/15) CYP2D6 / XN* Rapid Metabolizer (DO NOT DELETE 04/27/15) VKORC1 -1639G>A G/G* Low Sensitivity (BB) - High dose requir (DO NOT DELETE 04/27/15) Home Medications Apixaban* (Eliquis Tab*) 5 MG TABLET 5 MG PO BID, Ref 0 (Reported) Entered as Reported by JJ COREY on 08/29/201725 Last Action: Continued on 08/29/202042 by YESENIA CASANOVA Ascorbic Acid* (Vitamin C 500MG Tab*) 500 MG CAPSULE.ER 1,000 MG PO QDAY, Ref 0 ( Reported) Entered as Reported by JJ COREY on 08/29/201743 Last Action: Continued on 08/29/202042 by YESENIA CASANOVA Aspirin* (Ecotrin 81MG Tab*) 81 MG TABLET.DR 81 MG PO QDAYWM, Ref 0 (Reported) Entered as Reported by JJ COREY on 08/29/201740 Last Action: Continued on 08/29/202042 by YESENIA CASANOVA Baclofen* (Lioresal Tab*) 20 MG TABLET 20 MG PO BID, Ref 0 (Reported) Entered as Reported by ANGELIQUE AKHTAR on 11/24/14 1759 Last Taken: TOOK AM DOSE on 08/29/20 Last Action: Continued on 08/29/202042 by YESENIA CASANOVA Baclofen* (Lioresal Tab*) 20 MG TABLET 40 MG PO QHS, Ref 0 (Reported) Entered as Reported by JJ COREY on 08/29/201740 Last Action: Continued on 08/29/202042 by YESENIA CASANOVA Carvedilol* (Coreg 25MG Tab*) 25 MG TABLET 12.5 MG PO BIDWM, Ref 0 (Reported) Entered as Reported by ANGELIQUE AKHTAR on 11/24/14 1800 Last Taken: TOOK AM DOSE on 08/29/20 Last Action: Continued on 08/29/202042 by YESENIA CASANOVA Cholecalciferol (Vitamin D3)* (Vitamin D3 1000 Unit tab*) 25 MCG TABLET 5,000 UNIT PO QDAY, Ref 0 (Reported) Entered as Reported by JJ COREY on 08/29/201742 Last Action: Continued on 08/29/202042 by YESENIA CASANOVA Cranberry Extract (Cranberry) 500 MG TABLET 500 MG PO QDAY, Ref 0 (Reported) Entered as Reported by JJ COREY on 08/29/201741 Last Action: Held on 08/29/202043 by YESENIA CASANOVA Esomeprazole Ma (more content not included)... Normal [facility] LIPASEon 08-29-2020 Lipase [Catalytic activity/Vol] 51 U/L Normal 12-60 [facility] Comment on above: Order Comment: Campu s: M Result Comment: NOTE NEW NORMAL RANGE DUE TO REAGENT CHANGE Performed By: #### L 500.93176, L500.19415, L500.60557, L500.90331 #### [facility] [address] [place] [address] LIVERon 08-29-2020 Albumin [Mass/Vol] 3.5 g/dL Normal 3.2-5.0 [facility] Comment on above: Order Comment: Campu s: M Performed By: #### L 500.92595, L500.69416, L500.55381, L500.60103 #### [facility] [address] [place] [address] Albumin/Globulin [Mass ratio] 1.2 {ratio} Normal 0.8-2.0 [facility] Comment on above: Order Comment: Campu s: M Performed By: #### L 500.09941, L500.41211, L500.71148, L500.94873 #### [facility] [address] [place] [address] ALK PHOS 75 U/L Normal 45-117 [facility] Comment on above: Order Comment: Campu s: M Performed By: #### L 500.97521, L500.00824, L500.53399, L500.37901 #### [facility] [place] [address] ALT [Catalytic activity/Vol] 32 U/L Normal 13-61 [facility] Comment on above: Order Comment: Campu s: M Result Comment: RESU LTS MAY BE FALSELY DEPRESSED AFTER THE ADMINISTRATION OF SULFASALAZINE AND/OR SULFAPYRIDINE. Performed By: #### L 500.69800, L500.38471, L500.52708, L500.41454 #### [facility] [address] [place] [address] AST [Catalytic activity/Vol] 23 U/L Normal 8-34 [facility] Comment on above: Order Comment: Campu s: M Result Comment: RESU LTS MAY BE FALSELY DEPRESSED AFTER THE ADMINISTRATION OF SULFASALAZINE AND/OR SULFAPYRIDINE. Performed By: #### L 500.72077, L500.83757, L500.27080, L500.52586 #### [facility] [address] [place] [address] BILI DIRECT 0.1 MG/DL Normal 0.00-0.36 [facility] Comment on above: Order Comment: Campu s: M Result Comment: NOTE NEW NORMAL RANGE DUE TO REAGENT CHANGE Performed By: #### L 500.50424, L500.87840, L500.77460, L500.52198 #### [facility] LABORATORY [address] [place] [address] BILI TOTAL 0.20 MG/DL Normal 0.2-1.0 [facility] Comment on above: Order Comment: Campu s: M Performed By: #### L 500.76218, L500.29307, L500.31546, L500.92539 #### [facility] [address] [place] [address] Globulin (S) [Mass/Vol] 3.0 g/dL Normal 2.2-4.2 [facility] Comment on above: Order Comment: Campu s: M Performed By: #### L 500.97673, L500.87824, L500.39476, L500.17394 #### [facility] [address] [place], [place] [id number] Protein [Mass/Vol] 6.5 g/dL Normal 6.0-8.5 [facility] Comment on above: Order Comment: Campu s: M Performed By: #### L 500.21506, L500.29416, L500.39876, L500.64198 #### [facility] [address] [place] [address] PBNP TESTon 08-29-2020 Natriuretic peptide B (Bld) [Mass/Vol] 88 pg/mL Normal 0-125 [facility] Comment on above: Order Comment: Miguel s: M Result Comment: NT-p roBNP results of less than 300 pg/ml likely rules out acute congestive heart failure with 99% predictive value. NOTE: These cuttoff points are suggested for ACUTE CHF DIAGNOSIS only Less than 50 years Greater than 450 pg/ml 50-75 years Greater than 900 pg/ml Greater than 75 years Greater than 1800 pg/ml NOTE NEW NORMAL RANGE Performed By: #### L 500.57571 #### [facility] [address] [place] [address] PORTABLE CHESTon 08-29-2020 PORTABLE CHEST PORTABLE CHEST Ordering Physician: Meg Cooley 08/29/2020 11:54 AM PORTABLE UPRIGHT CHEST: Clinical Statement: Shortness of breath Comparison: 09/07/2015 FINDINGS: Left-sided pacemaker and leads are stable. Sternotomy wires are intact. The heart, aorta, and mediastinum are stable. No consolidation, effusions, or pneumothorax. Osseous structures are normal. IMPRESSION: No acute process. ---- Electronic Signature on File ---- Signed By: Edmundo López MD PhD [email or web address] Dictated: 08/29/2020 12:32 PM Signed: 08/29/2020 12:33 PM Reported By: EDMUNDO LÓPEZ M.D. Signed By: EDMUNDO LÓPEZ M.D. Normal [facility] RESPIRATORY PCRon 08-29-2020 ADENOVIRUS PCR Not detected Normal NOT DETECTD [facility] Comment on above: Order Comment: Miguel staples: Don Performed By: #### L 770.39844, L770.64315 ####[facility] [id number] [place], [place] [address]Ry# [phone] B PARA PCR Not detected Normal NOT DETECTD [facility] Comment on above: Order Comment: Campu s: M Performed By: #### L 770.87356, L770.81299 ####[facility] [id number] [place], [place] [address]To# [phone] B PERTUSSIS PCR Not detected Normal NOT DETECTD [facility] Comment on above: Order Comment: Campu s: M Performed By: #### L 770.90249, L770.22408 ####[facility] [id number] [place] [address]Ss# [phone] C PNEUMONIA PCR Not detected Normal NOT DETECTD [facility] Comment on above: Order Comment: Campu s: M Performed By: #### L 770.13107, L770.95188 ####[facility] [id number] [place] [address] 427[address]Xq# [phone] CORONAVIR 229E Not detected Normal NOT DETECTD [facility] Comment on above: Order Comment: Campu s: M Performed By: #### L 770.92501, L770.42516 ####[facility] [id number] [place] [address] 417[address]Qr# [phone] CORONAVIR HKU1 Not detected Normal NOT DETECTD [facility] Comment on above: Order Comment: Campu s: M Performed By: #### L 770.98208, L770.36161 ####[facility] [id number] [place] [address] 427[address]Bd# [phone] CORONAVIR NL63 Not detected Normal NOT DETECTD [facility] Comment on above: Order Comment: Campu s: M Performed By: #### L 770.13474, L770.47940 ####[facility] [id number] [place] [address] 27[address]Sv# [phone] CORONAVIR OC43 Not detected Normal NOT DETECTD [facility] Comment on above: Order Comment: Campu s: M Performed By: #### L 770.75833, L770.16405 ####[facility] [id number] [place], [place] [address]By# [phone] FLU A NO SUBTYP Not detected Normal NOT DETECTD [facility] Comment on above: Order Comment: Miguel s: M Performed By: #### L 770.11707, L770.86996 ####[facility] [id number] [place] [address] 437[address]Bp# [phone] HUMAN METAPNEUM Not detected Normal NOT DETECTD [facility] Comment on above: Order Comment: Miguel s: M Performed By: #### L 770.49501, L770.33879 ####[facility] [id number] [place] [address] 39[address]If# [phone] INFLUENZA A H1 Not detected Normal NOT DETECTD [facility] Comment on above: Order Comment: Miguel s: M Performed By: #### L 770.29805, L770.50268 ####[address] [address]Ve# [phone] INFLUENZA A H3 Not detected Normal NOT DETECTD [facility] Comment on above: Order Comment: Miguel s: M Performed By: #### L 770.24951, L770.97651 ####[facility] [id number] [place] [address] 32[address]Xm# [phone] INFLUENZA B PCR Not detected Normal NOT DETECTD [facility] Comment on above: Order Comment: Miguel s: M Performed By: #### L 770.82276, L770.35484 ####[facility] [id number] [place] [address] 12437Xt# [phone] M PNEUMONIA PCR Not detected Normal NOT DETECTD [facility] Comment on above: Order Comment: Miguel s: M Performed By: #### L 770.03117, L770.29084 ####[facility] [id number] [place] [address] 07[address]Ul# [phone] PARAINFLUENZA 1 Not detected Normal NOT DETECTD [facility] Comment on above: Order Comment: Campu s: M Performed By: #### L 770.90902, L770.09570 ####[facility] [id number] [place], [place] [address]Ed# [phone] PARAINFLUENZA 2 Not detected Normal NOT DETECTD [facility] Comment on above: Order Comment: Campu s: M Performed By: #### L 770.37274, L770.24064 ####[facility] [id number] [place] [address]31[address]Rn# [phone] PARAINFLUENZA 3 Not detected Normal NOT DETECTD [facility] Comment on above: Order Comment: Campu s: M Performed By: #### L 770.80455, L770.95184 ####[address] [address]Iz# [phone] PARAINFLUENZA 4 Not detected Normal NOT DETECTD [facility] Comment on above: Order Comment: Campu s: M Performed By: #### L 770.09240, L770.43744 ####[facility] [id number] [place] [address] 26[address]Rw# [phone] RHINO/ENTERO Not detected Normal NOT DETECTD [facility] Comment on above: Order Comment: Campu s: M Performed By: #### L 770.05953, L770.61289 ####[facility] [id number] [place] [address] 64[address]Eg# [phone] RSV Not detected Normal NOT DETECTD [facility] Comment on above: Order Comment: Campu s: M Performed By: #### L 770.13929, L770.39593 ####[facility] [id number] [place] [address]52[address]Qq# [phone] SARS-COV-2 PCRon 08-29-2020 SARS-CoV-2 (COVID-19) RNA JON+probe Ql (Unsp spec) Not detected Normal NOT DETECTD [facility] Comment on above: Order Comment: Campu s: M Result Comment: RESU LTS CALLED TO AND READ BACK BY Saida JACK AT 1455 08/29/20 BY MARGAUX GUSTAFSON Negative results do not preclude SARS-CoV-2 infection and should not be used as the sole basis for treatment or other patient management decisions. Negative results must be combined with clinical observation, patient history, and epidemiological information. This test has been authorized by the FDA under the Emergency Use Authorization (EUA) for use by authorized laboratories. This test was performed by PCR. Performed By: #### L 770.60394, L770.12979 ####[facility] [id number] [place], [place] [address]Vz# [phone] TROPONIN Ion 08-29-2020 Troponin I.cardiac [Mass/Vol] 2.5 ng/mL Normal 0-34 [facility] Comment on above: Order Comment: Miguel s: M Result Comment: NOTE NEW NORMAL RANGE DUE TO REAGENT CHANGE This assay uses different antibodies than our current assay, and assays, even by the same post partum nurse may recognize different regions of the antibody and cannot be used interchangeably. Expect results of this assay to run higher than the previous assay. Performed By: #### L 550.50190 #### [facility] [address] [place] [address] Final Surgical Pathology Rep [facility] 12-07-2017 Final Surgical Pathology Report . Pathology ReportsAccession: Collected Date/Time: Received Date/Time: Pathologist:[id number] 12/03/2017 09:52 EDT 12/04/2017 09:07 EDT MD GUI SANDOVAL Final Surgical Pathology ReportDIAGNOSIS:STOMACH, RANDOM BIOPSY: - MILD CHRONIC GASTRITIS. - NO ACTIVE GASTRITIS OR HELICOBACTER.COMMENT:[facility] # [id number] INFORMATION:Procedure: EGD with random stomach biopsiesPreoperative diagnosis: upper abdominal painPostoperative diagnosis: sameSPECIMEN:A STOM, BX - RANDOMGROSS DESCRIPTION:Received in formalin labeled random stomach biopsies are several raygoza glistening soft tissues ranging from 0.3-0.9 cm. TS -1Dictated by Renetta TAMEZ ([facility])MICROSCOPIC DESCRIPTION:Slides reviewed.Electronically Signed byPathology Report verified by [facility] HospitalElectronically signed by GUI SANDOVAL MDSign out Date: 12/07/2017 13:59Performing Lab: [facility], [facility] [address] [place] [address] Normal [facility] ([place]) Comment on above: Performed By: #### MINDI SMITH ANEU ####[place]fred [address] [address]#### FES, CMP, GFR, FERR ####[place] [address] [facility] ENDO Procedure Recordon 12-03-2017 Protein mass conc Normal [facility] ([place]) Depart Summaryon 12-03-2017 Depart Summary Normal [facility]) [place] Operative Reporton 12-03-2017 [place] Operative Report Normal [facility]) [place] Outpatient Patient Summaryon 12-03-2017 [place] [facility] Patient Summary Normal [facility]) [place] 11-24-2017 Ferritin 170 ng/mL Normal 8-252 [facility]) Comment on above: Performed By: #### MINDI SMITH ANEU ####[place] [address]#### FES, CMP, GFR, FERR ####[place] [address] .Auto Diffon 11-23-2017 Ammonia mass conc (P) 0.70 10 3/mcL Normal 0.15-1.00 [facility] ([place]) Comment on above: Performed By: #### MINDI SMITH ANEU ####[place] [address]#### FES, CMP, GFR, FERR ####[place] [address] Basophils Auto #/vol (Bld) 0.00 10 3/mcL Normal 0.00-0.19 [facility] ([place]) Comment on above: Performed By: #### MINDI SMITH, ANEU ####[place] [address]#### FES, CMP, GFR, FERR ####[address]fred [address] [place] [address] Basophils/100 WBC Auto (Bld) 0.5 % Normal 0.0-2.5 [facility] ([place] Comment on above: Performed By: #### MINDI SMITH, ANEU ####[place] [address] [place] [address]#### FES, CMP, GFR, FERR ####[address] [address] Eosinophils Auto #/vol (Bld) 0.20 10 3/mcL Normal 0.00-0.40 [facility] ([place]) Comment on above: Performed By: #### C MINDI RAM, ANEU ####[place] [address]#### FES, CMP, GFR, FERR ####[address] [address] Eosinophils/100 WBC Auto (Bld) 2.0 % Normal 0.0-7.0 [facility] ([place] Comment on above: Performed By: #### C MINDI RAM, ANEU ####[place] [address]#### FES, CMP, GFR, FERR ####[address] [address] Lymphocytes Auto #/vol (Bld) 2.50 10 3/mcL Normal 0.77-3.85 [facility] ([place] Comment on above: Performed By: #### MINDI SMITH, ANEU ####[place] [address]#### FES, CMP, GFR, FERR ####[address] [address] Lymphocytes/100 WBC Auto (Bld) 31.4 % Normal 10.0-50.0 [facility] ([place] Comment on above: Performed By: #### MINDI SMITH, ANEU ####[address]fred S[address]sp[address] [place] [address]#### FES, CMP, GFR, FERR ####[address] [address] Monocytes/100 WBC Auto (Bld) 8.2 % Normal 1.7-13.0 [facility] ([place] Comment on above: Performed By: #### C BC, ADIFF, ANEU ####[address] [place], [place] [address]#### FES, CMP, GFR, FERR ####[address] [address] Neutrophils/100 WBC Auto (Bld) 57.9 % Normal 37.0-80.0 [facility] ([place] Comment on above: Performed By: #### C BC, ADIFF, ANEU ####Alfred [address] [place], [place] [address]#### FES, CMP, GFR, FERR ####[address] [address] .GFRon 11-23-2017 GFR 72 ml/min/1.73sqm Normal [facility] ([place]) Comment on above: Result Comment: GFR Population mean for , Non- Americans Ages 20-29 = 116 mL/min/1.73 sq.m. Ages 30-39 = 107 mL/min/1.73 sq.m. Ages 40-49 = 99 mL/min/1.73 sq.m. Ages 50-59 = 93 mL/min/1.73 sq.m. Ages 60-69 = 85 mL/min/1.73 sq.m. Ages 70+ = 75 mL/min/1.73 sq.m.Chronic Kidney Disease: Less than 60 mL/min/1.73 square metersEnd Stage Renal Disease: Less than 15 mL/min/1.73 square meters Performed By: #### C BC, ADIFF, ANEU ####[address]fred [address] [place], [place] [address]#### FES, CMP, GFR, FERR ####[address] [address] GFR Non- 60 ml/min/1.73sqm Normal [facility] ([place] Comment on above: Result Comment: GFR Population mean for , Non- Americans Ages 20-29 = 116 mL/min/1.73 sq.m. Ages 30-39 = 107 mL/min/1.73 sq.m. Ages 40-49 = 99 mL/min/1.73 sq.m. Ages 50-59 = 93 mL/min/1.73 sq.m. Ages 60-69 = 85 mL/min/1.73 sq.m. Ages 70+ = 75 mL/min/1.73 sq.m.Chronic Kidney Disease: Less than 60 mL/min/1.73 square metersEnd Stage Renal Disease: Less than 15 mL/min/1.73 square meters Performed By: #### MINDI SMITH ANEU ####[place] [address]#### FES, CMP, GFR, FERR ####[place] [address] .NEUABSon 11-23-2017 Neutrophil, Absolute 4.70 10 3/mcL Normal 2.85-6.16 [facility] ([place]) Comment on above: Performed By: #### MINDI SMITH ANEU ####[place] [address]#### FES, CMP, GFR, FERR ####[place] [address] CBCon 11-23-2017 Erythrocyte distribution width Auto Ratio (RBC) 14.8 % High 11.5-14.5 [facility] ([place]) Comment on above: Performed By: #### MINDI SMITH ANEU ####[place] [address]#### FES, CMP, GFR, FERR ####[place] [address] Hematocrit Auto Volume Fraction (Bld) 37.2 % Normal 37.0-47.0 [facility] ([place] Comment on above: Performed By: #### MINDI SMITH, BEVERLEY ####[place] [address]#### FES, CMP, GFR, FERR ####[place] [address] Hemoglobin mass conc (Bld) 12.2 G/dL Normal 12.0-16.0 [facility] ([place] Comment on above: Performed By: #### C MINDI RAM, ANEU ####[place] [address]#### FES, CMP, GFR, FERR ####[place] [address] MCH Auto Entitic mass (RBC) 26.7 pg Low 27.0-31.2 [facility] ([place] Comment on above: Performed By: #### C LEANNA ADIFF, ANEU ####[place] [address]#### FES, CMP, GFR, FERR ####[place] [address] MCHC Auto mass conc (RBC) 32.8 G/dL Low 33.0-37.0 [facility] ([place] Comment on above: Performed By: #### C MINDI RAM, ANEU ####[place] [address]#### FES, CMP, GFR, FERR ####[place] [address] MCV Auto Entitic volume (RBC) 81.3 fL Normal 80.0-94.0 [facility] ([place] Comment on above: Performed By: #### C JARED RAMIFF, ANEU ####[place] [address]#### FES, CMP, GFR, FERR ####[place] [address] Platelet mean volume Auto Entitic volume (Bld) 8.7 fL Normal 7.4-10.4 [facility] ([place] Comment on above: Performed By: #### C LEANNA ADIFF, ANEU ####[place] [address]#### FES, CMP, GFR, FERR ####[place] [address] Platelets Auto #/vol (Bld) 321 10 3/mcL Normal 130-400 [facility] ([place]) Comment on above: Performed By: #### Manuel RAM, ADIFF, ANEU ####Alfred [address] [place] [address]#### FES, CMP, GFR, FERR ####[place] [address] RBC Auto #/vol (Bld) 4.57 10 6/mcL Normal 4.20-5.40 [facility] ([place] Comment on above: Performed By: #### C LEANNA, ADIFF, ANEU ####[place] [address]#### FES, CMP, GFR, FERR ####[place] [address] WBC Auto #/vol (Bld) 8.10 10 3/mcL Normal 4.60-10.80 [facility] ([place] Comment on above: Performed By: #### MINDI SMITH, ANEU ####[place]fred W[address]fhfc[address] [address]#### FES, CMP, GFR, FERR ####[place] [address] CMPon 11-23-2017 Albumin mass conc 3.8 G/dL Normal 3.4-4.8 [facility] ([place] Comment on above: Performed By: #### JARED SMITHIFF, ANEU ####[place] [address]#### FES, CMP, GFR, FERR ####[place] [address] Albumin/Globulin mass ratio 1.0 {ratio} Low 1.1-2.5 [facility] ([place] Comment on above: Performed By: #### Manuel RAM, ADIFF, ANEU ####Alfred [address] [place] [address]#### FES, CMP, GFR, FERR ####[place] [address] ALP enzyme act/vol 47 U/L Normal 40-135 [facility] ([place]) Comment on above: Performed By: #### C BC, ADIFF, ANEU ####[facility] [place] [address]#### FES, CMP, GFR, FERR ####[address] [address] ALT enzyme act/vol 22 U/L Normal 10-35 [facility] ([place] Comment on above: Performed By: #### C BC, ADIFF, ANEU ####[place] [address]#### FES, CMP, GFR, FERR ####[address] [address] AST enzyme act/vol 13 U/L Normal 10-40 [facility] ([place] Comment on above: Performed By: #### C BC, ADIFF, ANEU ####[place] [address]#### FES, CMP, GFR, FERR ####[place] [address] Bili Total 0.3 mg/dL Normal 0.2-1.0 [facility] ([place] Comment on above: Performed By: #### C BC, ADIFF, ANEU ####[place] [address]#### FES, CMP, GFR, FERR ####[address] [address] Calcium mass conc 11.2 mg/dL High 8.4-10.2 [facility] ([place] Comment on above: Performed By: #### C BC, ADIFF, ANEU ####[place] [address]#### FES, CMP, GFR, FERR ####[place] [address] Chloride molar conc 105 mmol/L Normal 98-107 [facility] ([place]) Comment on above: Performed By: #### C BC, ADIFF, ANEU ####[place] [address]#### FES, CMP, GFR, FERR ####[address] [address] CO2 molar conc 30 mmol/L Normal 23-31 [facility] ([place] Comment on above: Performed By: #### C BC, ADIFF, ANEU ####[address] [address]#### FES, CMP, GFR, FERR ####[place] [address] Creatinine mass conc 0.93 mg/dL Normal 0.55-1.02 [facility] ([place]) Comment on above: Performed By: #### C BC, ADIFF, ANEU ####[place] [address]#### FES, CMP, GFR, FERR ####[place] [address] Electrolyte Balance 6.0 mEq/L Normal [facility] ([place] Comment on above: Performed By: #### C BC, ADIFF, ANEU ####[place] [address]#### FES, CMP, GFR, FERR ####[place] [address] Globulin Calculated mass conc (S) 3.7 G/dL Normal [facility] ([place] Comment on above: Performed By: #### C BC, ADIFF, ANEU ####[place] [address]#### FES, CMP, GFR, FERR ####[address] [address] Glucose mass conc 81 mg/dL Normal 80-115 [facility] ([place] Comment on above: Performed By: #### C BC, ADIFF, ANEU ####[place] [address]#### FES, CMP, GFR, FERR ####[address] [address] Potassium molar conc 5.0 mmol/L Normal 3.5-5.1 [facility] ([place] Comment on above: Performed By: #### C BC, ADIFF, ANEU ####[place] [address]#### FES, CMP, GFR, FERR ####[address] [address] Protein mass conc 7.5 G/dL Normal 6.4-8.2 [facility] ([place] Comment on above: Performed By: #### C BC, ADIFF, ANEU ####[place] [address]#### FES, CMP, GFR, FERR ####[address] [address] Sodium molar conc 141 mmol/L Normal 136-145 [facility] ([place] Comment on above: Performed By: #### C BC, ADIFF, ANEU ####[place] [address]#### FES, CMP, GFR, FERR ####[place] [address] Urea nitrogen mass conc 14 mg/dL Normal 7-18 [facility] ([place] Comment on above: Performed By: #### C BC, ADIFF, ANEU ####[place] [address]#### FES, CMP, GFR, FERR ####[address] [address] Urea nitrogen/Creatinine mass ratio 15 ratio Normal 7-27 [facility] ([place] Comment on above: Performed By: #### C BC, ADIFF, ANEU ####[place] [address]#### FES, CMP, GFR, FERR ####[place] [address] FESon 11-23-2017 Iron mass conc 48 ug/dL Low 50-70 [facility] ([place] Comment on above: Performed By: #### C BC, ADIFF, ANEU ####[place] [address]#### FES, CMP, GFR, FERR ####[facility] [place] [address] Iron Sat 12 % Normal [facility] ([place] Comment on above: Performed By: #### C BC, ADIFF, ANEU ####Alfred [address] [place], [place] [address]#### FES, CMP, GFR, FERR ####[facility] [place] [address] TIBC 398 mcg/dL Normal 250-450 [facility] ([place] Comment on above: Performed By: #### C BC, ADIFF, ANEU ####Alfred [address] [place], [place] [address]#### FES, CMP, GFR, FERR ####[place] [address] [address] [place] [address] Vital Signs Date Time Vital Sign Value Performing Clinician Faci lity 11-03-2024 09:00-0400 Body height 157.5 cm Narcisa Lomeli MD Work Phone: [facility] 11-03-2024 09:00-0400 Body mass index (BMI) [Ratio] 43.71 kg/m2 Narcisa Lomeli MD Work Phone: [facility] 11-03-2024 09:00-0400 Body weight 108.41 kg Narcisa Lomeli MD Work Phone: [facility] 11-03-2024 09:00-0400 Diastolic blood pressure 96 mm[Hg] Narcisa Lomeli MD Work Phone: [facility] 11-03-2024 09:00-0400 Heart rate 87 /min Narcisa Lomeli MD Work Phone: [facility] 11-03-2024 09:00-0400 Respiratory rate 21 /min Narcisa Lomeli MD Work Phone: [facility] 11-03-2024 09:00-0400 SaO2% (BldA) [Mass fraction] 95 % Narcisa Lomeli MD Work Phone: [facility] 11-03-2024 09:00-0400 Systolic blood pressure 152 mm[Hg] Narcisa Lomeli MD Work Phone: [facility] 09-29-2024 09:31-0400 Body mass index (BMI) [Ratio] 41.88 kg/m2 Narcisa Lomeli MD Work Phone: [facility] 09-29-2024 09:31-0400 Body temperature 97.9 [degF] Narcisa Lomeli MD Work Phone: [facility] 09-29-2024 09:31-0400 Body weight 103.87 kg Narcisa Lomeli MD Work Phone: [facility] 09-29-2024 09:31-0400 Diastolic blood pressure 80 mm[Hg] Narcisa Lomeli MD Work Phone: [facility] 09-29-2024 09:31-0400 Heart rate 80 /min Narcisa Lomeli MD Work Phone: [facility] 09-29-2024 09:31-0400 Respiratory rate 16 /min Narcisa Lomeli MD Work Phone: [facility] 09-29-2024 09:31-0400 SaO2% (BldA) [Mass fraction] 96 % Narcisa Lomeli MD Work Phone: [facility] 09-29-2024 09:31-0400 Systolic blood pressure 136 mm[Hg] Narcisa Lomeli MD Work Phone: [facility] 09-22-2024 09:11-0400 Body height 157.5 cm Landon Jones 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 Work Phone: [facility] 09-22-2024 09:11-0400 Body mass index (BMI) [Ratio] 41.99 kg/m2 Landon Jones [employer]IEF 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 Work Phone: [facility] 09-22-2024 09:11-0400 Body weight 104.15 kg Landon Jones [employer]IEF 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 Work Phone: [facility] 09-22-2024 09:11-0400 Diastolic blood pressure 64 mm[Hg] Landon Jones [employer]IEF 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 Work Phone: [facility] 09-22-2024 09:11-0400 Heart rate 79 /min Landon Jones [employer]F 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 Work Phone: [facility] 09-22-2024 09:11-0400 SaO2% (BldA) [Mass fraction] 95 % Landon Jones 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 Work Phone: [facility] 09-22-2024 09:11-0400 Systolic blood pressure 137 mm[Hg] Landon Jones [employer]F 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 Work Phone: [facility] 09-09-2024 08:00-0400 Body mass index (BMI) [Ratio] 41.8 kg/m2 Dr. Edmundo Cruz MD Work Phone: [facility] 09-09-2024 08:00-0400 Body temperature 96.4 [degF] Dr. Edmundo Cruz MD Work Phone: [facility] 09-09-2024 08:00-0400 Body weight 103.[address] Edmundo Cruz MD Work Phone: [facility] 09-09-2024 08:00-0400 Diastolic blood pressure 66 mm[Hg] Dr. Edmundo Cruz MD Work Phone: [facility] 09-09-2024 08:00-0400 Heart rate 89 /min Dr. Edmundo Cruz MD Work Phone: [facility] 09-09-2024 08:00-0400 Respiratory rate 22 /min Dr. Edmundo Cruz MD Work Phone: [facility] 09-09-2024 08:00-0400 SaO2% (BldA) [Mass fraction] 97 % Dr. Edmundo Cruz MD Work Phone: [facility] 09-09-2024 08:00-0400 Systolic blood pressure 119 mm[Hg] Dr. Edmundo Cruz MD Work Phone: [facility] 09-06-2024 08:34-0400 Body mass index (BMI) [Ratio] 42.14 kg/m2 Edmundo Cruz MD Work Phone: [facility] 09-06-2024 08:34-0400 Body weight 104.5 kg Edmundo Cruz MD Work Phone: [facility] 09-06-2024 08:34-0400 Diastolic blood pressure 82 mm[Hg] Edmundo Cruz MD Work Phone: [facility] 09-06-2024 08:34-0400 Heart rate 96 /min Edmundo Cruz MD Work Phone: [facility] 09-06-2024 08:34-0400 Respiratory rate 20 /min Edmundo Cruz MD Work Phone: [facility] 09-06-2024 08:34-0400 SaO2% (BldA) [Mass fraction] 94 % Edmundo Cruz MD Work Phone: [facility] 09-06-2024 08:34-0400 Systolic blood pressure 128 mm[Hg] Edmundo Cruz MD Work Phone: [facility] 07-21-2024 08:23-0400 Body height 157.[address] Edmundo Cruz MD Work Phone: [facility] 07-21-2024 08:23-0400 Body mass index (BMI) [Ratio] 43.3 kg/m2 Dr. Edmundo Cruz MD Work Phone: [facility] 07-21-2024 08:23-0400 Body temperature 97.3 [degF] Dr. Edmundo Cruz MD Work Phone: [facility] 07-21-2024 08:23-0400 Body weight 107.[address] Edmundo Cruz MD Work Phone: [facility] 07-21-2024 08:23-0400 Diastolic blood pressure 72 mm[Hg] Dr. Edmundo Cruz MD Work Phone: [facility] 07-21-2024 08:23-0400 Heart rate 101 /min Dr. Edmundo Cruz MD Work Phone: [facility] 07-21-2024 08:23-0400 Respiratory rate 16 /min Dr. Edmundo Cruz MD Work Phone: [facility] 07-21-2024 08:23-0400 SaO2% (BldA) [Mass fraction] 95 % Dr. Edmundo Cruz MD Work Phone: [facility] 07-21-2024 08:23-0400 Systolic blood pressure 130 mm[Hg] Dr. Edmundo Cruz MD Work Phone: [facility] 06-28-2024 09:53-0400 Body mass index (BMI) [Ratio] 41.15 kg/m2 Narcisa Lomeli MD Work Phone: [facility] 06-28-2024 09:53-0400 Body temperature 98.71 [degF] Narcisa Lomeli MD Work Phone: [facility] 06-28-2024 09:53-0400 Body weight 102.06 kg Narcisa Lomeli MD Work Phone: [facility] 06-28-2024 09:53-0400 Heart rate 82 /min Narcisa Lomeli MD Work Phone: [facility] 06-28-2024 09:53-0400 SaO2% (BldA) [Mass fraction] 98 % Narcisa Lomeli MD Work Phone: [facility] 05-05-2024 13:53-0500 Body height 157.5 cm Jerri Draper MD Work Phone: [facility] 05-05-2024 13:53-0500 Body mass index (BMI) [Ratio] 42.07 kg/m2 Jerri Draper MD Work Phone: [facility] 05-05-2024 13:53-0500 Body weight 104.33 kg Jerri Draper MD Work Phone: [facility] 05-05-2024 13:53-0500 Diastolic blood pressure 78 mm[Hg] Jerri Draper MD Work Phone: [facility] 05-05-2024 13:53-0500 Heart rate 85 /min Jerri Draper MD Work Phone: [facility] 05-05-2024 13:53-0500 SaO2% (BldA) [Mass fraction] 93 % Jerri Draper MD Work Phone: [facility] 05-05-2024 13:53-0500 Systolic blood pressure 137 mm[Hg] Jerri Draper MD Work Phone: [facility] 03-28-2024 08:18-0500 Body height 157.5 cm Narcisa Lomeli MD Work Phone: [facility] 03-28-2024 08:18-0500 Body mass index (BMI) [Ratio] 41.34 kg/m2 Narcisa Lomeli MD Work Phone: [facility] 03-28-2024 08:18-0500 Body weight 102.51 kg Narcisa Lomeli MD Work Phone: [facility] 03-28-2024 08:18-0500 Diastolic blood pressure 82 mm[Hg] Narcisa Lomeli MD Work Phone: [facility] 03-28-2024 08:18-0500 Heart rate 73 /min Narcisa Lomeli MD Work Phone: [facility] 03-28-2024 08:18-0500 Respiratory rate 20 /min Narcisa Lomeli MD Work Phone: [facility] 03-28-2024 08:18-0500 SaO2% (BldA) [Mass fraction] 94 % Narcisa Lomeli MD Work Phone: [facility] 03-28-2024 08:18-0500 Systolic blood pressure 124 mm[Hg] Narcisa Lomeli MD Work Phone: [facility] 03-23-2024 14:11-0500 Body temperature 98.6 [degF] Dr. Edmundo Cruz MD Work Phone: [facility] 03-23-2024 14:11-0500 Diastolic blood pressure 56 mm[Hg] Dr. Edmundo Cruz MD Work Phone: 5(997)937-135460 [place] [address] 03-23-2024 14:11-0500 Heart rate 883 /min Dr. Edmundo Cruz MD Work Phone: 8(740)038-470160 [place] [address] 03-23-2024 14:11-0500 Respiratory rate 16 /min Dr. Edmundo Cruz MD Work Phone: 7(905)065-517[address] [place] [address] 03-23-2024 14:11-0500 SaO2% (BldA) [Mass fraction] 92 % Dr. Edmundo Cruz MD Work Phone: 4(119)634-391060 [place] [address] 03-23-2024 14:11-0500 Systolic blood pressure 131 mm[Hg] Dr. Edmundo Cruz MD Work Phone: 8(523)201-806960 [place] [address] 03-23-2024 12:48-0500 Body height 157.[address] Edmundo Cruz MD Work Phone: [facility] 03-22-2024 14:49-0500 Body temperature 97.4 [degF] Dr. Edmundo Cruz MD Work Phone: [facility] 03-22-2024 14:49-0500 Diastolic blood pressure 61 mm[Hg] Dr. Edmundo Cruz MD Work Phone: 0(628)489-736560 [place] [address] 03-22-2024 14:49-0500 Heart rate 81 /min Dr. Edmundo Cruz MD Work Phone: 6(906)340-515060 [place] [address] 03-22-2024 14:49-0500 Respiratory rate 16 /min Dr. Edmundo Cruz MD Work Phone: [facility] 03-22-2024 14:49-0500 SaO2% (BldA) [Mass fraction] 98 % Dr. Edmundo Cruz MD Work Phone: 3(477)037-993380 [place] [address] 03-22-2024 14:49-0500 Systolic blood pressure 118 mm[Hg] Dr. Edmundo Cruz MD Work Phone: 6(761)130-349680 [place] [address] 03-21-2024 12:57-0500 Body mass index (BMI) [Ratio] 40.8 kg/m2 Dr. Edmundo Cruz MD Work Phone: 2(162)962-578180 [place] [address] 03-21-2024 12:57-0500 Body temperature 96.8 [degF] Dr. Edmundo Cruz MD Work Phone: 9(542)765-945580 [place] [address] 03-21-2024 12:57-0500 Body weight 101.[address] Edmundo Cruz MD Work Phone: 8(616)906-196380 [place] [address] 03-21-2024 12:57-0500 Diastolic blood pressure 61 mm[Hg] Dr. Edmundo Cruz MD Work Phone: 8(329)984-818680 [place] [address] 03-21-2024 12:57-0500 Heart rate 72 /min Dr. Edmundo Cruz MD Work Phone: 2(308)069-748580 [place] [address] 03-21-2024 12:57-0500 Respiratory rate 16 /min Dr. Edmundo Cruz MD Work Phone: 4(448)358-968780 [place] [address] 03-21-2024 12:57-0500 SaO2% (BldA) [Mass fraction] 95 % Dr. Edmundo Cruz MD Work Phone: 7(044)228-954980 [place] [address] 03-21-2024 12:57-0500 Systolic blood pressure 154 mm[Hg] Dr. Edmundo Cruz MD Work Phone: 4(460)942-652780 [place] [address] 03-17-2024 08:33-0500 Body mass index (BMI) [Ratio] 41.3 kg/m2 Dr. Edmundo Cruz MD Work Phone: 6(741)595-273280 [place] [address] 03-17-2024 08:33-0500 Body temperature 96.8 [degF] Dr. Edmundo Cruz MD Work Phone: [facility] 03-17-2024 08:33-0500 Body weight 102.[address] Edmundo Cruz MD Work Phone: [facility] 03-17-2024 08:33-0500 Diastolic blood pressure 76 mm[Hg] Dr. Edmundo Cruz MD Work Phone: [facility] 03-17-2024 08:33-0500 Heart rate 96 /min Dr. Edmundo Cruz MD Work Phone: [facility] 03-17-2024 08:33-0500 Respiratory rate 17 /min Dr. Edmundo Cruz MD Work Phone: [facility] 03-17-2024 08:33-0500 SaO2% (BldA) [Mass fraction] 95 % Dr. Edmundo Cruz MD Work Phone: [facility] 03-17-2024 08:33-0500 Systolic blood pressure 130 mm[Hg] Dr. Edmundo Cruz MD Work Phone: [facility] 03-07-2024 08:02-0500 Body mass index (BMI) [Ratio] 41.17 kg/m2 Sophia Castillo 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 Work Phone: [facility] 03-07-2024 08:02-0500 Body weight 102.1 kg Sophia Castillo 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 Work Phone: [facility] 03-07-2024 08:02-0500 Diastolic blood pressure 76 mm[Hg] Sophia Griffinhof 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 Work Phone: [facility] 03-07-2024 08:02-0500 Heart rate 90 /min Sophia Griffinhof 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 Work Phone: [facility] 03-07-2024 08:02-0500 Respiratory rate 16 /min Sophia Griffinhof 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 Work Phone: [facility] 03-07-2024 08:02-0500 SaO2% (BldA) [Mass fraction] 95 % Sophia Castillo 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 Work Phone: [facility] 03-07-2024 08:02-0500 Systolic blood pressure 104 mm[Hg] Sophia Griffinhof 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 Work Phone: [facility] 02-03-2024 12:39-0400 Diastolic blood pressure 82 mm[Hg] Zaira Kinjal 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 Work Phone: [facility] 02-03-2024 12:39-0400 Heart rate 91 /min Zaira Kinjal 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 Work Phone: [facility] 02-03-2024 12:39-0400 Respiratory rate 14 /min Zaira Kinjal 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 Work Phone: [facility] 02-03-2024 12:39-0400 SaO2% (BldA) [Mass fraction] 95 % Zaira Kinjal 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 Work Phone: [facility] 02-03-2024 12:39-0400 Systolic blood pressure 136 mm[Hg] Zaira Kinjal 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 Work Phone: [facility] 12-09-2023 15:55-0400 Body height 157.5 cm Da De La Rosa MD Work Phone: [facility] 12-09-2023 15:55-0400 Body mass index (BMI) [Ratio] 41.34 kg/m2 Da De La Rosa MD Work Phone: [facility] 12-09-2023 15:55-0400 Body weight 102.51 kg Da De La Rosa MD Work Phone: [facility] 12-09-2023 15:55-0400 Diastolic blood pressure 71 mm[Hg] Da De La Rosa MD Work Phone: [facility] 12-09-2023 15:55-0400 Heart rate 76 /min Da De La Rosa MD Work Phone: [facility] 12-09-2023 15:55-0400 SaO2% (BldA) [Mass fraction] 93 % Da De La Rosa MD Work Phone: [facility] 12-09-2023 15:55-0400 Systolic blood pressure 143 mm[Hg] Da De La Rosa MD Work Phone: [facility] 07-09-2023 10:05-0400 Body mass index (BMI) [Ratio] 42.07 kg/m2 Da De La Rosa MD Work Phone: [facility] 07-09-2023 10:05-0400 Body weight 104.33 kg Da De La Rosa MD Work Phone: [facility] 07-09-2023 10:05-0400 Diastolic blood pressure 82 mm[Hg] Da De La Rosa MD Work Phone: [facility] 07-09-2023 10:05-0400 Heart rate 77 /min Da De La Rosa MD Work Phone: [facility] 07-09-2023 10:05-0400 SaO2% (BldA) [Mass fraction] 94 % Da De La Rosa MD Work Phone: [facility] 07-09-2023 10:05-0400 Systolic blood pressure 116 mm[Hg] Da De La Rosa MD Work Phone: [facility] 05-08-2023 11:48-0500 Body temperature 97.1 [degF] Dr. Edmundo Cruz Work Phone: [facility] 05-08-2023 11:48-0500 Diastolic blood pressure 85 mm[Hg] Dr. Edmundo Cruz Work Phone: [facility] 05-08-2023 11:48-0500 Heart rate 91 /min Dr. Edmundo Cruz Work Phone: [facility] 05-08-2023 11:48-0500 Systolic blood pressure 161 mm[Hg] Dr. Edmundo Cruz Work Phone: [facility] 05-08-2023 11:35-0500 Respiratory rate 16 /min Dr. Edmundo Cruz Work Phone: 8(611)774-694780 [place] [address] 05-08-2023 11:35-0500 SaO2% (BldA) [Mass fraction] 97 % Dr. Edmundo Cruz Work Phone: 5(517)853-645180 [place] [address] 05-08-2023 11:30-0500 Inhaled oxygen flow rate 2 L/min Dr. Edmundo Cruz Work Phone: 7(074)036-544180 [place] [address] 05-08-2023 07:58-0500 Body height 157.[address] Edmundo Crzu Work Phone: 8(076)222-428180 [place] [address] 05-08-2023 07:58-0500 Body mass index (BMI) [Ratio] 41.5 kg/m2 Dr. Edmundo Cruz Work Phone: 0(113)687-092380 [place] [address] 05-08-2023 07:58-0500 Body weight 102.[address] Edmundo Cruz Work Phone: 3(456)725-710180 [place] [address] 03-18-2023 09:23-0500 Body mass index (BMI) [Ratio] 42 kg/m2 Dr. Edmundo Cruz Work Phone: 6(621)995-984980 [place] [address] 03-18-2023 09:23-0500 Body temperature 97.8 [degF] Dr. Edmundo Cruz Work Phone: 3(081)246-202580 [place] [address] 03-18-2023 09:23-0500 Body weight 104.[address] Edmundo Cruz Work Phone: 2(579)397-744680 [place] [address] 03-18-2023 09:23-0500 Diastolic blood pressure 70 mm[Hg] Dr. Edmundo Cruz Work Phone: 3(792)230-942680 [place] [address] 03-18-2023 09:23-0500 Heart rate 94 /min Dr. Edmundo Cruz Work Phone: 0(315)285-395480 [place] [address] 03-18-2023 09:23-0500 Respiratory rate 18 /min Dr. Edmundo Cruz Work Phone: 6(740)994-669280 [place] [address] 03-18-2023 09:23-0500 SaO2% (BldA) [Mass fraction] 94 % Dr. Edmundo Cruz Work Phone: [facility] 03-18-2023 09:23-0500 Systolic blood pressure 126 mm[Hg] Dr. Edmundo Cruz Work Phone: [facility] 02-18-2023 07:29-0500 Body weight 101.15 kg Sophia Tannhof 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 Work Phone: [facility] 02-18-2023 07:29-0500 Diastolic blood pressure 68 mm[Hg] Sophia Tannhof 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 Work Phone: [facility] 02-18-2023 07:29-0500 Heart rate 89 /min Sophia Tannhof 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 Work Phone: [facility] 02-18-2023 07:29-0500 Respiratory rate 16 /min Sophia Tannhof 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 Work Phone: [facility] 02-18-2023 07:29-0500 SaO2% (BldA) [Mass fraction] 94 % Sophia Tannhof 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 Work Phone: [facility] 02-18-2023 07:29-0500 Systolic blood pressure 130 mm[Hg] Sophia Tannhof 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 Work Phone: [facility] 11-17-2022 13:16-0400 Body height 157.5 cm Teree Rice 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 Work Phone: [facility] 11-17-2022 13:16-0400 Diastolic blood pressure 66 mm[Hg] Teree Rice 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 Work Phone: [facility] 11-17-2022 13:16-0400 SaO2% (BldA) [Mass fraction] 97 % Teree Rice 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 Work Phone: [facility] 11-17-2022 13:16-0400 Systolic blood pressure 137 mm[Hg] Teree Rice 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 Work Phone: [facility] 10-21-2022 07:59-0400 Body height 157.[address] Edmundo Cruz Work Phone: [facility] 10-21-2022 07:59-0400 Body mass index (BMI) [Ratio] 41.1 kg/m2 Dr. Edmundo Cruz Work Phone: [facility] 10-21-2022 07:59-0400 Body temperature 97.8 [degF] Dr. Edmundo Cruz Work Phone: [facility] 10-21-2022 07:59-0400 Body weight 102.[address] Edmundo Cruz Work Phone: [facility] 10-21-2022 07:59-0400 Diastolic blood pressure 90 mm[Hg] Dr. Edmundo Cruz Work Phone: [facility] 10-21-2022 07:59-0400 Heart rate 90 /min Dr. Edmundo Cruz Work Phone: [facility] 10-21-2022 07:59-0400 Respiratory rate 17 /min Dr. Edmundo Cruz Work Phone: [facility] 10-21-2022 07:59-0400 SaO2% (BldA) [Mass fraction] 96 % Dr. Edmundo Cruz Work Phone: [facility] 10-21-2022 07:59-0400 Systolic blood pressure 120 mm[Hg] Dr. Edmundo Cruz Work Phone: [facility] 08-19-2022 09:01-0400 Diastolic blood pressure 80 mm[Hg] Edmundo Cruz MD Work Phone: [facility] 08-19-2022 09:01-0400 Heart rate 75 /min Edmundo Cruz MD Work Phone: [facility] 08-19-2022 09:01-0400 Respiratory rate 16 /min Edmundo Cruz MD Work Phone: [facility] 08-19-2022 09:01-0400 SaO2% (BldA) [Mass fraction] 98 % Edmundo Cruz MD Work Phone: [facility] 08-19-2022 09:01-0400 Systolic blood pressure 120 mm[Hg] Edmundo Cruz MD Work Phone: [facility] 04-02-2022 12:53-0500 Body temperature 100.2 [degF] Sophia Griffinhof 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 Work Phone: [facility] 04-02-2022 12:53-0500 Body weight 100.88 kg Sophia Griffinhof 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 Work Phone: [facility] 04-02-2022 12:53-0500 Diastolic blood pressure 70 mm[Hg] Sophia Griffinhof 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 Work Phone: [facility] 04-02-2022 12:53-0500 Heart rate 95 /min Sophia Griffinhof 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 Work Phone: [facility] 04-02-2022 12:53-0500 Respiratory rate 24 /min Sophia Griffinhof 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 Work Phone: [facility] 04-02-2022 12:53-0500 SaO2% (BldA) [Mass fraction] 94 % Sophia Griffinhof 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 Work Phone: [facility] 04-02-2022 12:53-0500 Systolic blood pressure 122 mm[Hg] Sophia Griffinhof 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 Work Phone: [facility] 02-07-2022 15:51-0400 Diastolic blood pressure 50 mm[Hg] Dr. Edmundo Cruz Work Phone: [facility] Work Phone: 02-07-2022 15:51-0400 Respiratory rate 16 /min Dr. Edmundo Cruz Work Phone: [facility] Work Phone: 02-07-2022 15:51-0400 Systolic blood pressure 131 mm[Hg] Dr. Edmundo Cruz Work Phone: [facility] Work Phone: 02-07-2022 14:10-0400 Body height 157.[address] Edmundo Cruz Work Phone: [facility] Work Phone: 02-07-2022 14:10-0400 Body temperature 98.3 [degF] Dr. Edmundo Cruz Work Phone: [facility] Work Phone: 02-07-2022 14:10-0400 Heart rate 62 /min Dr. Edmundo Cruz Work Phone: [facility] Work Phone: 02-07-2022 14:10-0400 SaO2% (BldA) [Mass fraction] 96 % Dr. Edmundo Cruz Work Phone: [facility] Work Phone: 02-06-2022 13:52-0400 Body temperature 96 [degF] Dr. Edmundo Cruz Work Phone: [facility] Work Phone: 02-06-2022 13:52-0400 Diastolic blood pressure 65 mm[Hg] Dr. Edmundo Cruz Work Phone: [facility] Work Phone: 02-06-2022 13:52-0400 Heart rate 70 /min Dr. Edmundo Cruz Work Phone: [facility] Work Phone: 02-06-2022 13:52-0400 Respiratory rate 18 /min Dr. Edmundo Cruz Work Phone: [facility] Work Phone: 02-06-2022 13:52-0400 SaO2% (BldA) [Mass fraction] 94 % Dr. Edmundo Cruz Work Phone: [facility] Work Phone: 02-06-2022 13:52-0400 Systolic blood pressure 141 mm[Hg] Dr. Edmundo Cruz Work Phone: [facility] Work Phone: 02-05-2022 16:00-0400 Body temperature 97.4 [degF] Dr. Edmundo Cruz Work Phone: [facility] Work Phone: 02-05-2022 16:00-0400 Diastolic blood pressure 61 mm[Hg] Dr. Edmundo Cruz Work Phone: [facility] Work Phone: 02-05-2022 16:00-0400 Heart rate 64 /min Dr. Edmundo Cruz Work Phone: [facility] Work Phone: 02-05-2022 16:00-0400 Respiratory rate 16 /min Dr. Edmundo Cruz Work Phone: [facility] Work Phone: 02-05-2022 16:00-0400 SaO2% (BldA) [Mass fraction] 95 % Dr. Edmundo Cruz Work Phone: [facility] Work Phone: 02-05-2022 16:00-0400 Systolic blood pressure 130 mm[Hg] Dr. Edmundo Cruz Work Phone: [facility] Work Phone: 02-05-2022 13:57-0400 Body mass index (BMI) [Ratio] 41.1 kg/m2 Dr. Edmundo Cruz Work Phone: [facility] Work Phone: 02-05-2022 13:57-0400 Body weight 102.[address] Edmundo Cruz Work Phone: [facility] Work Phone: 11-27-2021 07:37-0400 Body height 157.[address] Edmundo Cruz Work Phone: [facility] Work Phone: 11-27-2021 07:37-0400 Body mass index (BMI) [Ratio] 39.4 kg/m2 Dr. Edmundo Cruz Work Phone: [facility] Work Phone: 11-27-2021 07:37-0400 Body temperature 98.6 [degF] Dr. Edmundo Cruz Work Phone: [facility] Work Phone: 11-27-2021 07:37-0400 Body weight 97.[address] Edmundo Cruz Work Phone: [facility] Work Phone: 11-27-2021 07:37-0400 Diastolic blood pressure 69 mm[Hg] Dr. Edmundo Cruz Work Phone: [facility] Work Phone: 11-27-2021 07:37-0400 Heart rate 82 /min Dr. Edmundo Cruz Work Phone: [facility] Work Phone: 11-27-2021 07:37-0400 Respiratory rate 21 /min Dr. Edmundo Cruz Work Phone: [facility] Work Phone: 11-27-2021 07:37-0400 SaO2% (BldA) [Mass fraction] 97 % Dr. Edmundo Cruz Work Phone: [facility] Work Phone: 11-27-2021 07:37-0400 Systolic blood pressure 120 mm[Hg] Dr. Edmundo Cruz Work Phone: [facility] Work Phone: 2021 16:01-0400 Diastolic blood pressure 76 mm[Hg] Dr. Edmundo Cruz Work Phone: [facility] Work Phone: 2021 16:01-0400 Systolic blood pressure 126 mm[Hg] Dr. Edmundo Cruz Work Phone: [facility] Work Phone: 2021 10:30-0400 Body height 157.[address] Edmundo Cruz Work Phone: [facility] Work Phone: 2021 10:30-0400 Body mass index (BMI) [Ratio] 39.7 kg/m2 Dr. Edmundo Cruz Work Phone: [facility] Work Phone: 2021 10:30-0400 Body temperature 97.7 [degF] Dr. Edmundo Cruz Work Phone: [facility] Work Phone: 2021 10:30-0400 Body weight 98.[address] Edmundo Cruz Work Phone: [facility] Work Phone: 2021 10:30-0400 Heart rate 74 /min Dr. Edmundo Cruz Work Phone: [facility] Work Phone: 2021 10:30-0400 Respiratory rate 16 /min Dr. Edmundo Cruz Work Phone: [facility] Work Phone: 2021 10:30-0400 SaO2% (BldA) [Mass fraction] 97 % Dr. Edmundo Cruz Work Phone: [facility] Work Phone: 10-22-2021 10:35-0400 Body height 157.5 cm Da De La Rosa MD Work Phone: [facility] 10-22-2021 10:35-0400 Body weight 98.88 kg Da De La Rosa MD Work Phone: [facility] 10-22-2021 10:35-0400 Diastolic blood pressure 65 mm[Hg] Da De La Rosa MD Work Phone: [place] [address]-12-2022 10:35-0400 Heart rate 67 /min Da De La Rosa MD Work Phone: [facility] 10-22-2021 10:35-0400 Respiratory rate 20 /min Da De La Rosa MD Work Phone: [facility] 10-22-2021 10:35-0400 SaO2% (BldA) [Mass fraction] 99 % Da De La Rosa MD Work Phone: [facility] 10-22-2021 10:35-0400 Systolic blood pressure 141 mm[Hg] Da De La Rosa MD Work Phone: [facility] 08-09-2021 08:55-0400 Body weight 98.88 kg Edmundo Cruz MD Work Phone: [facility] 08-09-2021 08:55-0400 Diastolic blood pressure 74 mm[Hg] Edmundo Cruz MD Work Phone: [facility] 08-09-2021 08:55-0400 Heart rate 80 /min Edmundo Cruz MD Work Phone: [facility] 08-09-2021 08:55-0400 Respiratory rate 14 /min Edmundo Cruz MD Work Phone: [facility] 08-09-2021 08:55-0400 Systolic blood pressure 136 mm[Hg] Edmundo Cruz MD Work Phone: [facility] 05-28-2021 09:07-0500 Body height 157.[address] Edmundo Cruz Work Phone: [facility] Work Phone: 05-28-2021 09:07-0500 Body mass index (BMI) [Ratio] 41.1 kg/m2 Dr. Edmundo Cruz Work Phone: [facility] Work Phone: 05-28-2021 09:07-0500 Body temperature 95 [degF] Dr. Edmundo Cruz Work Phone: [facility] Work Phone: 05-28-2021 09:07-0500 Body weight 102.[address] Edmundo Cruz Work Phone: [facility] Work Phone: 05-28-2021 09:07-0500 Diastolic blood pressure 66 mm[Hg] Dr. Edmundo Cruz Work Phone: [facility] Work Phone: 05-28-2021 09:07-0500 Heart rate 78 /min Dr. Edmundo Cruz Work Phone: [facility] Work Phone: 05-28-2021 09:07-0500 Respiratory rate 18 /min Dr. Edmundo Cruz Work Phone: [facility] Work Phone: 05-28-2021 09:07-0500 SaO2% (BldA) [Mass fraction] 93 % Dr. Edmundo Cruz Work Phone: [facility] Work Phone: 05-28-2021 09:07-0500 Systolic blood pressure 128 mm[Hg] Dr. Edmundo Cruz Work Phone: [facility] Work Phone: 05-21-2021 08:31-0500 Diastolic blood pressure 66 mm[Hg] Dr. Edmundo Cruz Work Phone: [facility] Work Phone: 05-21-2021 08:31-0500 Heart rate 85 /min Dr. Edmundo Cruz Work Phone: [facility] Work Phone: 05-21-2021 08:31-0500 SaO2% (BldA) [Mass fraction] 95 % Dr. Edmundo Cruz Work Phone: [facility] Work Phone: 05-21-2021 08:31-0500 Systolic blood pressure 118 mm[Hg] Dr. Edmundo Cruz Work Phone: [facility] Work Phone: 03-18-2021 09:41-0500 Body temperature 97 [degF] Dr. Edmundo Cruz Work Phone: [facility] Work Phone: 03-18-2021 09:41-0500 Diastolic blood pressure 82 mm[Hg] Dr. Edmundo Cruz Work Phone: [facility] Work Phone: 03-18-2021 09:41-0500 Heart rate 85 /min Dr. Edmundo Cruz Work Phone: [facility] Work Phone: 03-18-2021 09:41-0500 Respiratory rate 16 /min Dr. Edmundo Cruz Work Phone: [facility] Work Phone: 03-18-2021 09:41-0500 SaO2% (BldA) [Mass fraction] 95 % Dr. Edmundo Cruz Work Phone: [facility] Work Phone: 03-18-2021 09:41-0500 Systolic blood pressure 128 mm[Hg] Dr. Edmundo Cruz Work Phone: [facility] Work Phone: Encounters Encounter Date Encounter Type Care Provider Facility Start: 02-01-2025 ambulatory García Baddour Facilit y:[facility] Start: 01-31-2025 ambulatory García Baddour Facilit y:[facility] Start: 01-30-2025 ambulatory García Baddour Facilit y:[facility] Start: 01-24-2025 End: 01-24-2025 ambulatory García Baddour Facility:[facility] Start: 01-11-2025 ambulatory Robert Jeramie Facility:[facility] Start: 12-08-2024 End: 12-09-2024 Refill Edmundo Cruz MD Work Phone: [address] [place] [address] Comment on above: Refill Request Start: 11-23-2024 End: 11-23-2024 Refill Edmundo Cruz MD Work Phone: [facility] [place] Comment on above: Refill Request Start: 11-03-2024 End: 11-03-2024 Patient encounter procedure Narcisa Lomeli MD Work Phone: Endocrinology Comment on above: Primary hyperparathy roidism (HCC) (Primary Dx); Hypercalcemia; Vitamin D deficiency Start: 11-03-2024 End: 11-03-2024 ambulatory [facility] Facility:[facility] Start: 11-02-2024 ambulatory UNKNOWN PROVIDER Facili ty:[facility] Start: 11-02-2024 End: 11-02-2024 Subsequent hospital visit by physician Bone Density [facility] Comment on above: Primary hyperparathy roidism (HCC) [E21.0] Start: 09-29-2024 End: 09-29-2024 Patient encounter procedure Narcias Lomeli MD Work Phone: Endocrinology Comment on above: Primary hyperparathy roidism (HCC) (Primary Dx) Start: 09-29-2024 End: 09-29-2024 ambulatory [facility] Facility:[facility] Start: 09-23-2024 End: 09-23-2024 ambulatory [facility] Facility:[facility] Start: 09-22-2024 End: 09-22-2024 Patient encounter procedure Device [facility] Main Work Phone: [facility] Comment on above: Pacemaker reprogramm ing/check Coronary artery dise ase involving chickahominy indians-eastern division coronary artery of chickahominy indians-eastern division heart without angina pectoris (Primary Dx); Complete heart block (HCC); Cardiac resynchronization therapy pacemaker (IMCU NURSE-P) in place; PAF (paroxysmal atrial fibrillation) (HCC); Essential hypertension Start: 09-22-2024 End: 09-22-2024 ambulatory KIMI AYALA Facility:[id number] Start: 09-09-2024 End: 09-09-2024 Patient encounter procedure Kathy BOBOC -[facility] Work Phone: Start: 09-09-2024 End: 09-09-[address] Edmundo Cruz MD Work Phone: [facility] Work Phone: Start: 09-07-2024 End: 09-09-2024 Refill Edmundo Cruz MD Work Phone: Family [facility] Comment on above: Refill Request Start: 09-06-2024 End: 09-06-2024 Office outpatient visit 25 minutes Edmundo Cruz MD Work Phone: Family [facility] Comment on above: Essential hypertensi on (Primary Dx); Multiple sclerosis (HCC); Neuropathic pain; Hyperlipidemia, unspecified hyperlipidemia type; Gastroesophageal reflux disease, unspecified whether esophagitis present; REBECCA (obstructive sleep apnea); Iron deficiency anemia, unspecified iron deficiency anemia type; Coronary artery disease involving chickahominy indians-eastern division coronary artery of chickahominy indians-eastern division heart without angina pectoris; Vitamin D deficiency; Morbid obesity (HCC); Congestive heart failure, unspecified HF chronicity, unspecified heart failure type (HCC); PAF (paroxysmal atrial fibrillation) (HCC); Transient ischemic attack; Mild intermittent asthma without complication (HCC) Start: 09-06-2024 End: 09-06-2024 ambulatory EDMUNDO CRUZ Facility:[facility] Start: 08-25-2024 End: 08-25-[address] Edmundo Cruz MD Work Phone: [facility] Work Phone: Start: 08-25-2024 End: 08-25-[address] Dylan Coronado DO -Radiology [facility] Work Phone: Start: 08-25-2024 End: 08-25-2024 ambulatory Dylan Coronado Facility:[facility] Start: 08-24-2024 End: 08-25-2024 Refill Narcisa Lomeli MD Work Phone: Endocrinology Comment on above: Refill Request Start: 08-23-2024 End: 10-23-2024 Follow-up encounter Deion uRssell APRN.CNP Work Phone: [facility] Start: 08-22-2024 End: 09-16-2024 Telephone encounter Narcisa Lomeli MD Work Phone: Endocrinology Comment on above: Critical Results Forms ([facility] - Authori zation to hold anti-thrombotic ) Start: 08-22-2024 End: 08-22-2024 [facility] Start: 08-22-2024 ambulatory Dylan Hernandez ty:[facility] Start: 07-27-2024 End: 07-28-2024 Refill Edmundo Cruz MD Work Phone: [facility] Comment on above: Refill Request Start: 07-21-2024 End: 07-21-[address] Edmundo Cruz MD Work Phone: [facility] Work Phone: Start: 07-21-2024 End: 07-21-[address] García Clemente MD -[facility] Work Phone: Start: 07-21-2024 End: 07-21-[address] García Clemente MD -[facility] Work Phone: Start: 07-21-2024 End: 07-21-2024 ambulatory García Clemente Facility:[facility] Start: 07-20-2024 End: 07-21-2024 Refill Edmundo Cruz MD Work Phone: [facility] Comment on above: Refill Request Start: 07-07-2024 End: 07-07-2024 Telephone encounter Landon Jones APRN.CNP Work Phone: [facility] Comment on above: Appointment (Resched ule/Device) Start: 06-28-2024 End: 06-28-2024 ambulatory EDMUNDO Taylor [facility] Facility:[facility] Start: 06-28-2024 End: 06-28-2024 Patient encounter procedure Narcisa Lomeli MD Work Phone: Endocrinology Comment on above: Vitamin D deficiency (Primary Dx); Hypercalcemia Start: 06-21-2024 End: 06-21-2024 Refill Edmundo Cruz MD Work Phone: [facility] Comment on above: Refill Request Start: 06-16-2024 End: 06-16-[address] Edmundo Cruz MD Work Phone: [facility] Work Phone: Start: 06-16-2024 End: 06-16-[address] Dylan Coronado DO -Cat Scan, [facility] Work Phone: Start: 06-16-2024 End: 06-16-2024 ambulatory Dylan Coronado Facility:[facility] Start: 06-03-2024 End: 06-07-2024 Telephone encounter Narcisa Lomeli MD Work Phone: Endocrinology Comment on above: New Medication Start: 05-20-2024 End: 05-20-2024 Telephone encounter Edmundo Cruz MD Work Phone: [facility] Comment on above: Refill Request Start: 05-06-2024 End: 05-06-2024 Telephone encounter Jerri Draper MD Work Phone: [facility] Comment on above: Appointment Start: 05-05-2024 End: 05-05-2024 Patient encounter procedure Jerri Draper MD Work Phone: [facility] Comment on above: Cardiac resynchroniz ation therapy pacemaker (IMCU NURSE-P) in place (Primary Dx); Encounter to establish care; Complete heart block (HCC); PAF (paroxysmal atrial fibrillation) (HCC); Hx of CABG Congestive heart jaimie lure, unspecified HF chronicity, unspecified heart failure type (HCC) (Primary Dx) Start: 05-05-2024 End: 05-05-2024 ambulatory JERRI DRAPER Facility:[id number] Start: 05-04-2024 End: 05-04-2024 Chart abstracting Dana Chou MA Work Phone: [facility] Start: 03-28-2024 End: 04-01-2024 Telephone encounter Narcisa Lomeli MD Work Phone: Endocrinology Comment on above: Results (Urgent Valu es) Start: 03-28-2024 End: 03-28-2024 ambulatory [facility] Facility:[facility] Start: 03-28-2024 End: 03-28-2024 Patient encounter procedure Narcisa Lomeli MD Work Phone: Endocrinology Comment on above: Hypercalcemia (Prima ry Dx) Start: 03-23-2024 End: 03-23-[address] García Clemente MD -Medical Out Work Phone: Start: 03-23-2024 End: 03-23-2024 [facility] Facility:[facility] Start: 03-22-2024 End: 03-22-[address] García Clemente MD -Medical Out Work Phone: Start: 03-22-2024 End: 03-22-2024 [facility] [employer] Facility:[facility] Start: 03-21-2024 End: 03-21-[address] García Clemente MD -Medical Out Work Phone: Start: 03-21-2024 End: 03-21-2024 [facility] García Clemente Facility:[facility] Start: 03-17-2024 End: 03-17-[address] García Clemente MD -[facility] Work Phone: Start: 03-17-2024 End: 03-17-2024 ambulatory García Clemente Facility:[facility] Start: 03-14-2024 End: 03-14-2024 Nursing evaluation of patient and report Nurse Card Admin [facility] Work Phone: Cardiology Comment on above: Routine check-up; Coronary artery disease involving chickahominy indians-eastern division coronary artery of chickahominy indians-eastern division heart without angina pectoris; Essential hypertension; Pacemaker; Paroxysmal atrial fibrillation (HCC); Nonsustained ventricular tachycardia (HCC) Start: 03-14-2024 End: 03-14-2024 Patient encounter status Nurse Card Admin [facility] Work Phone: [facility] Start: 03-14-2024 End: 03-14-2024 ambulatory EDMUNDO Taylor [facility] Facility:[facility] Start: 03-14-2024 Encounter for genera l adult medical examination without abnormal findings EDMUNDO [facility] Start: 03-14-2024 End: 03-14-2024 Patient encounter status Injection Wstr Work Phone: [facility] Start: 03-14-2024 End: 03-14-2024 Subsequent hospital visit by physician Injection Nm [facility] Work Phone: Nuclear Medicine Comment on above: Routine check-up [Z0 0.00] Start: 03-09-2024 End: 03-09-2024 Telephone encounter Nurse Card Admin [facility] Work Phone: Cardiology Comment on above: Stress Test Instruct ions for 03/14/24 Start: 03-07-2024 End: 03-07-2024 Patient encounter procedure Sophia Castillo APRN.CHILDB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 Work Phone: [facility] [place] Comment on above: Essential hypertensi on (Primary Dx); Coronary artery disease involving chickahominy indians-eastern division coronary artery of chickahominy indians-eastern division heart without angina pectoris; Congestive heart failure, unspecified HF chronicity, unspecified heart failure type (HCC); Hyperlipidemia, unspecified hyperlipidemia type; History of DVT (deep vein thrombosis); REBECCA (obstructive sleep apnea); Elevated glucose; Multiple sclerosis (HCC); Encounter for immunization; Screening for depression; Encounter for screening examination for other mental health and behavioral disorders Start: 03-07-2024 End: 03-07-2024 ambulatory EDMUNDO Taylor [facility] Facility:[facility] Start: 02-18-2024 End: 02-19-2024 Telephone encounter Kimi Ayala MD Work Phone: [facility] Comment on above: Appointment (Discuss battery change) Start: 02-17-2024 End: 02-17-2024 Refill Edmundo Cruz MD Work Phone: [facility] [place] Comment on above: Refill Request Start: 02-15-2024 End: 02-15-2024 Telephone encounter Deion Russell APRN.CHIL[employer]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 Work Phone: [facility] [place] Comment on above: Results Start: 02-10-2024 End: 02-10-2024 Telephone encounter Zaira Sarkar APRN.CHILDB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 Work Phone: [facility] [place] Comment on above: Results Start: 02-09-2024 End: 02-09-2024 ambulatory [facility] Facility:[facility] Start: 02-08-2024 End: 02-08-2024 Telephone encounter Zaira Sarkar APRN.CHIL[employer]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 Work Phone: [facility] [place] Comment on above: Results Start: 02-04-2024 End: 02-04-2024 ambulatory [facility] Facility:[facility] Start: 02-03-2024 End: 02-03-2024 ambulatory [facility] Facility:[facility] Start: 02-03-2024 End: 02-03-2024 Patient encounter procedure Zaira Sarkar APRN.CHILDB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 Work Phone: [facility] [place] Comment on above: Dysuria (Primary Dx) ; Urinary frequency Arthritis of left sh oulder region (Primary Dx) Start: 02-02-2024 End: 02-02-2024 Telephone encounter Edmundo Cruz MD Work Phone: [facility] [place] Comment on above: Future Appointment Start: 12-10-2023 End: 12-10-2023 Refill Edmundo Cruz MD Work Phone: Family [facility] Comment on above: Refill Request Start: 12-09-2023 Encounter for genera l adult medical examination without abnormal findings [facility] Start: 12-09-2023 End: 12-09-2023 ambulatory [facility] Facility:[id number] Start: 12-09-2023 End: 12-09-2023 Patient encounter procedure Device [facility] Main Work Phone: [facility] Comment on above: Congestive heart jaimie lure, unspecified HF chronicity, unspecified heart failure type (HCC) (Primary Dx) Routine check-up (Pr imary Dx); Coronary artery disease involving chickahominy indians-eastern division coronary artery of chickahominy indians-eastern division heart without angina pectoris; Essential hypertension; Pacemaker; Paroxysmal atrial fibrillation (HCC); Nonsustained ventricular tachycardia (HCC) Start: 12-09-2023 End: 12-09-2023 Patient encounter status Da De La Rosa MD Work Phone: [facility] Start: 11-27-2023 Chart abstracting Da De La Rosa MD Work Phone: [facility] Start: 10-27-2023 Telephone encounter Da De La Rosa MD Work Phone: [facility] Comment on above: Appointment Start: 08-26-2023 ambulatory Edmundo zimmerman MD Work Phone: Internal Medicine [facility] [place] Start: 07-30-2023 Telephone encounter Sophia Raygoza nhof CHIEF YEOMAN.CHILDB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 Work Phone: Family [facility] Comment on above: Results (Labs ) Start: 06-03-2023 End: 02-09-2024 Telephone encounter Edmundo Cruz MD Work Phone: [facility] Comment on above: Medication Problem Start: 05-21-2023 End: 05-21-2023 Patient encounter procedure [facility] Main Work Phone: [facility] Comment on above: Congestive heart jaimie lure, unspecified HF chronicity, unspecified heart failure type (HCC) (Primary Dx) Start: 05-08-2023 End: 05-08-2023 Admission to same day surgery center Dr. Edmundo Cruz Work Phone: [facility] Start: 05-08-2023 End: 05-08-[address] Edmundo Cruz Work Phone: [facility] Work Phone: Start: 03-30-2023 Orders Only Ej Scott Work Phone: Orthopaedics Comment on above: Acute pain of left s houlder (Primary Dx) Start: 03-18-2023 End: 03-18-[address] Edmundo Cruz Work Phone: [facility] Work Phone: Start: 02-18-2023 End: 02-18-2023 Patient encounter procedure Sophia Castillo APRN.CHILDB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 Work Phone: [facility] Comment on above: Essential hypertensi on (Primary Dx); Coronary artery disease involving chickahominy indians-eastern division coronary artery of chickahominy indians-eastern division heart without angina pectoris; Congestive heart failure, unspecified HF chronicity, unspecified heart failure type (HCC); History of DVT (deep vein thrombosis); Hyperlipidemia, unspecified hyperlipidemia type; Multiple sclerosis (HCC); REBECCA (obstructive sleep apnea); Encounter for immunization; Elevated glucose; Impacted cerumen of left ear Start: 12-17-2022 Non-patient / Non-visit Dr. Kaur Cruz Work Phone: [facility] Start: 12-17-2022 End: 12-17-[address] Edmundo Cruz Work Phone: [facility] Work Phone: Start: 12-17-2022 End: 12-17-[address] Edmundo Cruz Work Phone: [facility] Work Phone: Start: 12-03-2022 End: 12-03-[address] Edmundo Cruz Work Phone: [facility] Work Phone: Start: 12-03-2022 End: 12-03-[address] Edmundo Cruz Work Phone: [facility]-Outpatient Bone Densitometry Work Phone: Start: 11-18-2022 Telephone encounter Clara blackman APRN.CHIL[employer]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 Work Phone: [facility] Comment on above: Patient Question Start: 11-17-2022 End: 11-17-2022 Office outpatient visit 25 minutes Clara Christianson APRN.CNP Work Phone: [facility] Comment on above: Coronary artery dise ase involving chickahominy indians-eastern division coronary artery of chickahominy indians-eastern division heart without angina pectoris (Primary Dx); Cardiac pacemaker; Essential hypertension; Hyperlipidemia, unspecified hyperlipidemia type; Congestive heart failure, unspecified HF chronicity, unspecified heart failure type (HCC); REBECCA (obstructive sleep apnea); Biventricular implantable cardioverter-defibrillator (ICD) in situ; Obesity, Class III, BMI >= 40 Start: 11-17-2022 End: 11-17-2022 Patient encounter procedure [facility] Main Work Phone: [facility] Comment on above: Congestive heart jaimie lure, unspecified HF chronicity, unspecified heart failure type (HCC) (Primary Dx) Start: 10-21-2022 End: 10-21-[address] Edmundo Cruz Work Phone: [facility] Work Phone: Start: 10-21-2022 End: 10-21-[address] Edmundo Cruz Work Phone: [facility] Work Phone: Start: 10-21-2022 End: 10-21-[address] Edmundo Cruz Work Phone: [facility] Work Phone: Start: 10-16-2022 Telephone encounter Edmundo mcleod MD Work Phone: [facility] [place] Comment on above: Question about stati n Start: 09-17-2022 Telephone encounter Da De La Rosa MD Work Phone: [facility] Comment on above: Appointment Start: 08-19-2022 End: 08-19-2022 Patient encounter procedure Edmundo Cruz MD Work Phone: [facility] [place] Comment on above: Essential hypertensi on (Primary Dx); Coronary artery disease involving chickahominy indians-eastern division coronary artery of chickahominy indians-eastern division heart without angina pectoris; Elevated glucose; Hyperlipidemia, unspecified hyperlipidemia type; History of DVT (deep vein thrombosis); Gastroesophageal reflux disease, unspecified whether esophagitis present; Multiple sclerosis ([facility]); REBECCA (obstructive sleep apnea); Spastic hemiplegia, unspecified etiology, unspecified laterality (HCC); Morbid obesity ([facility]); Congestive heart failure, unspecified HF chronicity, unspecified heart failure type ([facility]); PAF (paroxysmal atrial fibrillation) ([facility]); Other pulmonary embolism without acute cor pulmonale, unspecified chronicity ([facility]); Left elbow tendonitis Start: 08-12-2022 Telephone encounter Edmundo mcleod MD Work Phone: [facility] [place] Comment on above: Patient Update Start: 06-27-2022 Refill Edmundo zimmerman MD Work Phone: [facility] [place] Comment on above: Refill Request Start: 05-16-2022 Refill Edmundo zimmerman MD Work Phone: [facility] [place] Comment on above: Refill Request Start: 04-28-2022 Telephone encounter Da De La Rosa MD Work Phone: [facility] Comment on above: Pt thought device ch alicia was at 12noon Start: 04-28-2022 End: 04-28-2022 Patient encounter procedure [facility] Work Phone: [facility] Comment on above: Congestive heart jaimie lure, unspecified HF chronicity, unspecified heart failure type (HCC) (Primary Dx) Start: 04-15-2022 Telephone encounter Sophia swanson APRN.CHILDB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 Work Phone: [facility] [place] Comment on above: Results (Chest Xray ) Start: 04-11-2022 End: 04-11-2022 Subsequent hospital visit by physician Krystal [facility] [place] Work Phone: Radiology Comment on above: Acute cough [R05.1] Start: 04-08-2022 Telephone encounter Sophia swanson APRN.CHILDB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 Work Phone: [facility] Comment on above: Patient Update; Ana ent Question Start: 04-02-2022 ambulatory Edmundo zimmerman MD Work Phone: [facility] Comment on above: Cough Start: 04-02-2022 End: 04-02-2022 Patient encounter procedure Sophia Castillo CHIEF YEOMAN.CHILDB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 Work Phone: [facility] Comment on above: Bacterial pneumonia (Primary Dx) Start: 02-24-2022 Telephone encounter Edmundo mcleod MD Work Phone: [facility] Comment on above: Review of Statin dos e change Start: 02-07-2022 Telephone encounter Edmundo mcleod MD Work Phone: [facility] Comment on above: Medication Problem; Forms Start: 02-07-2022 End: 02-07-[address] Edmundo Cruz Work Phone: [facility] Work Phone: Start: 02-07-2022 End: 02-07-[address] Edmundo Cruz Work Phone: [facility] Out Start: 02-06-2022 End: 02-06-[address] Edmundo Cruz Work Phone: [facility] Work Phone: Start: 02-06-2022 End: 02-06-[address] Edmundo Cruz Work Phone: [facility] Start: 02-05-2022 Telephone encounter Edmundo mcleod MD Work Phone: [facility] Comment on above: Gabapentin form Start: 02-05-2022 End: 02-05-[address] Edmundo Cruz Work Phone: [facility] Work Phone: Start: 02-05-2022 End: 02-05-[address] Edmundo Cruz Work Phone: [facility] Start: 01-09-2022 End: 01-09-[address] Edmundo Cruz Work Phone: [facility] Work Phone: Start: 01-09-2022 End: 01-09-[address] Edmundo Cruz Work Phone: [facility]-Speech Therapy Start: 12-19-2021 Refill Edmundo zimmerman MD Work Phone: [facility] Comment on above: Refill Request Start: 12-10-2021 Telephone encounter Da De La Rosa MD Work Phone: [facility] Comment on above: Opened In Error Start: 12-09-2021 Non-patient / Non-visit Dr. Kaur Cruz Work Phone: [facility] Start: 12-09-2021 End: 12-09-[address] Edumndo Cruz Work Phone: [facility] Work Phone: Start: 12-09-2021 End: 12-09-[address] Edmundo Cruz Work Phone: [facility]-Radiology, [facility] Start: 11-27-2021 End: 11-27-[address] Edmundo Cruz Work Phone: [facility]-Pulmonary Medicine [facility] Start: 2021 Chart abstracting Edmundo moreno MD Work Phone: [facility] Comment on above: external document Start: 2021 End: [address] Edmundo Cruz Work Phone: [facility] Start: 2021 End: [address] 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 Start: 10-22-2021 End: 10-22-2021 Patient encounter procedure Da De La Rosa MD Work Phone: [facility] Comment on above: Coronary artery dise ase involving chickahominy indians-eastern division coronary artery of chickahominy indians-eastern division heart without angina pectoris (Primary Dx); PAF (paroxysmal atrial fibrillation) (HCC) Start: 10-11-2021 End: 10-11-2021 Patient encounter procedure [facility] Start: 10-09-2021 ambulatory Edmundo zimmerman MD Work Phone: Internal Medicine [facility] [place] Start: 08-09-2021 End: 08-09-2021 Patient encounter procedure Edmundo Cruz MD Work Phone: [facility] Comment on above: Multiple sclerosis ( HCC) (Primary Dx); Hyperlipidemia, unspecified hyperlipidemia type; Coronary artery disease involving chickahominy indians-eastern division coronary artery of chickahominy indians-eastern division heart without angina pectoris; Essential hypertension; Elevated glucose Start: 07-04-2021 Refill Edmundo zimmerman MD Work Phone: [facility] Comment on above: Refill Request Start: 07-02-2021 End: 07-02-[address] Edmundo Cruz Work Phone: [facility] Start: 05-28-2021 End: 05-28-[address] [facility] Start: 05-21-2021 End: 05-21-[address] Edmundo Cruz Work Phone: [facility] Start: 03-18-2021 End: 03-18-[address] Edmundo Cruz Work Phone: [facility] Start: 12-03-2017 End: 12-03-2017 Patient encounter MICKI Kenyatta RYANGHULAMJULIAN Facility:B Start: 11-23-2017 End: 11-24-2017 Patient encounter MICKI MCCRACKEN Facility:[facility] Procedures Date Procedure Procedure Detail Performing Clinician Start: 11-02-2024 Dxa bone density study axial skeleton Narcisa Lomeli MD Work Phone: Start: 08-25-[address] Edmundo mcleod MD Work Phone: Start: 08-25-[address] Edmundo calderón MD Work Phone: Start: 08-25-2024 End: 08-25-2024 Microbial culture, body fluid Dr. Edmundo Cruz MD Work Phone: Start: 08-25-2024 Blood count leukocyte wbc automated Dr. Edmundo Cruz MD Work Phone: Start: 08-25-[address] Edmundo jordan MD Work Phone: Start: 08-25-[address] Edmundo Cruz MD Work Phone: Start: 08-25-[address] Edmundo Cruz MD Work Phone: Start: 08-22-2024 Lipid 1996 panel - Serum or Plasma Narcisa Lomeli MD Work Phone: Start: 07-21-[address] Edmundo Cruz MD Work Phone: Start: 06-16-2024 CT of limb regions Dr. Edmundo Cruz MD Work Phone: Start: 03-14-2024 Myocardial spect multiple studies Da De La Rosa MD Work Phone: Start: 03-07-2024 Adult depression screening assessment Sophia Castillo APRN.CNP Work Phone: Start: 02-09-2024 Lipid 1996 panel - Serum or Plasma Zaira Kinjal CHIEF 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 Work Phone: Start: 07-28-2023 Lipid 1996 panel - Serum or Plasma Sophia Castillo CHIEF 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 Work Phone: Start: 05-08-[address] Edmundo Cruz Work Phone: Start: 05-08-[address] Edmundo calderón Work Phone: Start: 02-18-2023 INFLUENZA VACCINE, PRSV FREE, AGE 65+ YR, HIGH DOSE, QUADRIVALENT (FLUZONE HIGH-DOSE) Sophia Castillo CHIEF 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 Work Phone: Start: 12-03-2022 Dual energy X-ray absorptiometry Dr. Edmundo Cruz Work Phone: Start: 11-10-2022 History of coronary artery bypass grafting S/P CABG x 2 Clara Christianson CHIEF 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 Work Phone: Start: 08-27-2022 Lipid 1996 panel - Serum or Plasma Sophia Castillo CHIEF 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 Work Phone: Start: 04-11-2022 Radiologic exam chest 2 views Sophia Castillo CHIEF 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 Work Phone: Start: 12-09-[address] Edmundo Cruz Work Phone: Start: 08-29-2020 Ecg routine ecg w/least 12 lds i&r only Start: 04-12-2018 Adult depression screening assessment Edmundo Cruz MD Work Phone: Start: 12-05-2015 Colonoscopy Edmundo Cruz MD Work Phone: Start: 08-25-2014 Mammography Edmundo Cruz MD Work Phone: Start: 07-13-2011 H/O: surgery History of rectal polypectomy Edmundo Cruz MD Work Phone: History of coronary artery bypass grafting S/P CABG x 2 Dr. Edmundo Cruz Work Phone: History of coronary artery bypass grafting Hx of CABG Jerri Draper MD Work Phone: Plan of Treatment Date Care Activity Detail Author Start: 08-22-2029 Lipid panel Lipid Screening [facility] Start: 02-08-2029 Lipid panel Lipid Screening [facility] Start: 07-27-2028 Lipid panel Lipid Screening [facility] Start: 09-24-2027 Diabetes Screening Diabetes Screening [facility] Start: 08-28-2027 Lipid 1996 panel - Serum or Plasma Lipid Screening [facility] Start: 08-28-2027 Lipid panel Lipid Screening [facility] Start: 08-28-2027 LIPID SCREEN LIPID SCREEN [facility] Start: 08-23-2027 Diabetes Screening Diabetes Screening [facility] Start: 02-08-2027 Diabetes Screening Diabetes Screening [facility] Start: 07-29-2026 LIPID SCREEN LIPID SCREEN [facility] Start: 07-27-2026 Diabetes Screening Diabetes Screening [facility] Start: 04-14-2026 Diabetes Screening Diabetes Screening [facility] Start: 11-03-2025 End: 11-03-2025 Patient encounter procedure 11/03/2025 9:00 AM EDT Office Visit Endocrinology [address] [place] [address] Narcisa Lomeli MD [address] [place] [address] 1 yr f/u hyperparathyroidism Endocrinology Comment on above: 1 yr f/u hyperparathyroidism Start: 10-26-2025 End: 01-25-2026 25-hydroxyvitamin D3 [Mass/volume] in Serum or Plasma VITAMIN D 25 HYDROXY Lab Routine Primary hyperparathyroidism (HCC) Hypercalcemia Vitamin D deficiency Expected: 10/26/2025, Expires: 01/25/2026 [facility] Comment on above: Expected: 10/26/2025, Expires: Start: 10-26-2025 End: 01-25-2026 ALK PHOS BONE SPEC ALK PHOS BONE SPEC Lab Routine Primary hyperparathyroidism (HCC) Hypercalcemia Vitamin D deficiency Expected: 10/26/2025, Expires: 01/25/2026 [facility] Comment on above: Expected: 10/26/2025, Expires: Start: 10-26-2025 End: 01-25-2026 Calcium.ionized [Moles/volume] in Blood CALCIUM, IONIZED Lab Routine Primary hyperparathyroidism (HCC) Hypercalcemia Vitamin D deficiency Expected: 10/26/2025, Expires: 01/25/2026 [facility] Comment on above: Expected: 10/26/2025, Expires: Start: 10-26-2025 End: 01-25-2026 Comprehensive metabolic 2000 panel - Serum or Plasma COMPREHENSIVE METABOLIC PANEL Lab Routine Primary hyperparathyroidism (HCC) Hypercalcemia Vitamin D deficiency Expected: 10/26/2025, Expires: 01/25/2026 [facility] Work Phone: Comment on above: Expected: 10/26/2025, Expires: Start: 10-26-2025 End: 01-25-2026 Magnesium [Mass/volume] in Serum or Plasma MAGNESIUM Lab Routine Primary hyperparathyroidism (HCC) Hypercalcemia Vitamin D deficiency Expected: 10/26/2025, Expires: 01/25/2026 [facility] Comment on above: Expected: 10/26/2025, Expires: Start: 10-26-2025 End: 01-25-2026 Parathyrin.intact [Mass/volume] in Serum or Plasma PTH INTACT Lab Routine Primary hyperparathyroidism (HCC) Hypercalcemia Vitamin D deficiency Expected: 10/26/2025, Expires: 01/25/2026 [facility] Comment on above: Expected: 10/26/2025, Expires: Start: 10-26-2025 End: 01-25-2026 Phosphate [Mass/volume] in Serum or Plasma PHOSPHORUS INORGANIC Lab Routine Primary hyperparathyroidism (HCC) Hypercalcemia Vitamin D deficiency Expected: 10/26/2025, Expires: 01/25/2026 [facility] Comment on above: Expected: 10/26/2025, Expires: Start: 10-01-2025 LIPID SCREEN LIPID SCREEN [facility] Start: 09-26-2025 End: 09-26-2025 Patient encounter procedure 09/26/2025 10:00 AM EDT Office [place] [address] Da De La Rosa MD [address] [place] [address] 1 [place] [facility] [place] Comment on above: 1 year [facility] Start: 09-06-2025 Annual PCP Team Chronic Disease Visit Annual PCP Team Chronic Disease Visit [facility] Start: 08-27-2025 DIABETES SCREEN DIABETES SCREEN [facility] Start: 08-27-2025 Diabetes Screening Diabetes Screening [facility] Start: 08-22-2025 Hepatitis B surface antibody level LDL Cholesterol [facility] Start: 03-10-2025 End: 03-10-2025 Patient encounter procedure [facility] Comment on above: transfer [facility]/6 month follow up Start: 03-09-2025 End: 06-08-2025 CBC W Auto Differential panel - Blood COMPLETE BLOOD COUNT AND DIFFERENTIAL Lab Routine Iron deficiency anemia, unspecified iron deficiency anemia type Expected: 03/09/2025 (Approximate), Expires: 06/08/2025 [facility] Comment on above: Expected: 03/09/2025 (Approximate), Expi res: 06/08/2025 Start: 03-09-2025 End: 06-08-2025 Comprehensive metabolic 2000 panel - Serum or Plasma COMPREHENSIVE METABOLIC PANEL Lab Routine Hyperlipidemia, unspecified hyperlipidemia type Coronary artery disease involving chickahominy indians-eastern division coronary artery of chickahominy indians-eastern division heart without angina pectoris Expected: 03/09/2025 (Approximate), Expires: 06/08/2025 [facility] Comment on above: Expected: 03/09/2025 (Approximate), Expi res: 06/08/2025 Start: 03-09-2025 End: 06-08-2025 Lipid 1996 panel - Serum or Plasma LIPID PANEL, FASTING Lab Routine Hyperlipidemia, unspecified hyperlipidemia type Coronary artery disease involving chickahominy indians-eastern division coronary artery of chickahominy indians-eastern division heart without angina pectoris Expected: 03/09/2025 (Approximate), Expires: 06/08/2025 [facility] Work Phone: Comment on above: Expected: 03/09/2025 (Approximate), Expi res: 06/08/2025 Start: 03-07-2025 Annual PCP Team Chronic Disease Visit Annual PCP Team Chronic Disease Visit [facility] Start: 03-07-2025 Anxiety Screening Anxiety Screening [facility] Start: 03-07-2025 BP Controlled (<130/80) BP Controlled (<130/80) [facility] Start: 03-07-2025 Covid-19 Vaccine () Covid-19 Vaccine () [facility] Comment on above: Postponed from 12/13/2023 (Declined at t his time) Start: 03-07-2025 Depression Screening Depression Screening [facility] Start: 03-07-2025 RSV Vaccine (1 - 1-dose 75+ series) RSV Vaccine (1 - 1-dose 75+ series) [facility] Comment on above: Postponed from 11/22/2023 (Declined at t his time) Start: 03-07-2025 Shingrix Vaccine (1 of 2) Shingrix Vaccine (1 of 2) [facility] Comment on above: Postponed from 1998 (Declined at t his time) Start: 03-06-2025 Screening for malignant neoplasm of colon Colorectal Cancer Screening [facility] Comment on above: Postponed from 1993 (Declined at t his time) Start: 02-08-2025 Hepatitis B surface antibody level LDL Cholesterol [facility] Start: 02-02-2025 End: 02-02-2025 Patient encounter procedure [facility] Comment on above: 6 month rov with device check. [facility] Start: 02-02-2025 Annual PCP Team Chronic Disease Visit Annual PCP Team Chronic Disease Visit [facility] Start: 12-12-2024 Influenza [facility] Start: 11-03-2024 End: 11-03-2024 Patient encounter procedure 11/03/2024 9:00 AM EDT Office Visit Endocrinology [address] [place] [address] Narcisa Lomeli MD [address] [place] [address] Return in about one month Endocrinology Comment on above: Return in about one month Start: 11-02-2024 End: 11-02-2024 Patient encounter procedure 11/02/2024 2:30 PM EDT Appointment Radiology [address] [place] [address] Primary hyperparathyroidism (HCC) [E21.0] Radiology Comment on above: Primary hyperparathyroidism (HCC) [E21.0 ] Start: 09-29-2024 End: 09-29-2024 Patient encounter procedure 09/29/2024 9:40 AM EDT Office Visit Endocrinology [address] [place] [address] Narcisa Lomeli MD [address] [facility] [place] [address] 3 month f/u-hypercalcemia Endocrinology Comment on above: 3 month f/u-hypercalcemia Start: 09-22-2024 End: 09-22-2024 Patient encounter procedure [facility] Comment on above: 6 Mth F/u Start: 09-06-2024 End: 09-06-2024 Patient encounter procedure 09/06/2024 8:40 AM EDT Office Visit [facility] [address] [place] [address] Edmundo Cruz MD [address] [place] [address] 6 month follow up [facility] Comment on above: 6 month follow up Start: 09-04-2024 End: 12-04-2024 Comprehensive metabolic 2000 panel - Serum or Plasma COMPREHENSIVE METABOLIC PANEL Lab Routine Hyperlipidemia, unspecified hyperlipidemia type Expected: 09/04/2024, Expires: 12/04/2024 [facility] Comment on above: Expected: 09/04/2024, Expires: Start: 09-04-2024 End: 12-04-2024 Hemoglobin A1c in Blood HEMOGLOBIN A1C Lab Routine Elevated glucose Expected: 09/04/2024, Expires: 12/04/2024 [facility] Work Phone: Comment on above: Expected: 09/04/2024, Expires: Start: 09-04-2024 End: 12-04-2024 Lipid 1996 panel - Serum or Plasma LIPID PANEL BASIC Lab Routine Hyperlipidemia, unspecified hyperlipidemia type Expected: 09/04/2024, Expires: 12/04/2024 [facility] Comment on above: Expected: 09/04/2024, Expires: Start: 08-30-2024 End: 11-29-2024 25-hydroxyvitamin D3 [Mass/volume] in Serum or Plasma VITAMIN D 25 HYDROXY Lab Routine Vitamin D deficiency Hypercalcemia Expected: 08/30/2024, Expires: 11/29/2024 [facility] Comment on above: Expected: 08/30/2024, Expires: Start: 08-30-2024 End: 11-29-2024 ALK PHOS BONE SPEC ALK PHOS BONE SPEC Lab Routine Hypercalcemia Expected: 08/30/2024, Expires: 11/29/2024 [facility] Comment on above: Expected: 08/30/2024, Expires: Start: 08-30-2024 End: 11-29-2024 Calcium.ionized [Moles/volume] in Blood CALCIUM, IONIZED Lab Routine Hypercalcemia Expected: 08/30/2024, Expires: 11/29/2024 [facility] Work Phone: Comment on above: Expected: 08/30/2024, Expires: Start: 08-30-2024 End: 11-29-2024 Comprehensive metabolic 2000 panel - Serum or Plasma COMPREHENSIVE METABOLIC PANEL Lab Routine Vitamin D deficiency Hypercalcemia Expected: 08/30/2024, Expires: 11/29/2024 [facility] Comment on above: Expected: 08/30/2024, Expires: Start: 08-30-2024 End: 11-29-2024 Magnesium [Mass/volume] in Serum or Plasma MAGNESIUM Lab Routine Vitamin D deficiency Hypercalcemia Expected: 08/30/2024, Expires: 11/29/2024 [facility] Comment on above: Expected: 08/30/2024, Expires: Start: 08-30-2024 End: 11-29-2024 Parathyrin.intact [Mass/volume] in Serum or Plasma PTH INTACT Lab Routine Vitamin D deficiency Hypercalcemia Expected: 08/30/2024, Expires: 11/29/2024 [facility] Comment on above: Expected: 08/30/2024, Expires: Start: 08-30-2024 End: 11-29-2024 Phosphate [Mass/volume] in Serum or Plasma PHOSPHORUS INORGANIC Lab Routine Hypercalcemia Expected: 08/30/2024, Expires: 11/29/2024 [facility] Comment on above: Expected: 08/30/2024, Expires: Start: 08-25-2024 Anaerobic microbial culture Anaerobic Culture [facility] Start: 08-25-2024 End: 08-25-2024 Microbial culture, body fluid [facility] Start: 07-29-2024 DIABETES SCREEN DIABETES SCREEN [facility] Start: 07-27-2024 Hepatitis B surface antibody level LDL Cholesterol [facility] Start: 07-13-2024 End: 07-13-2024 Patient encounter procedure [facility] Comment on above: 6 Mth F/u Start: 07-08-2024 Annual PCP Team Chronic Disease Visit Annual PCP Team Chronic Disease Visit [facility] Start: 06-28-2024 End: 06-28-2024 Patient encounter procedure 06/28/2024 9:40 AM EDT Office Visit Endocrinology [address] [place] [address] Narcisa Lomeli MD [address] [place] [address] 2 month f/u (last seen 03/28/24) Endocrinology Comment on above: 2 month f/u (last seen 03/28/24) Start: 05-05-2024 End: 05-05-2024 Patient encounter procedure [facility] Comment on above: New Patient Device Check Start: 04-14-2024 Annual PCP Team Chronic Disease Visit Annual PCP Team Chronic Disease Visit [facility] Start: 04-14-2024 BP Controlled (<130/80) BP Controlled (<130/80) [facility] Start: 04-13-2024 Advance Directive Discussion Advance Directive Discussion [facility] Start: 04-13-2024 Medicare Advantage Annual Wellness Visit [facility] Annual Wellness Visit [facility] Start: 03-28-2024 End: 06-27-2024 PROTEIN ELECTROPHORESIS SERUM W/INTERP [facility] Work Phone: Comment on above: Expected: 03/28/2024, Expires: Start: 03-28-2024 End: 03-28-2024 Patient encounter procedure 03/28/2024 8:00 AM EST Office Visit Endocrinology [address] [place] [id number] Narcisa Lomeli MD [address] [place] [id number] Hypercalcemia [E83.52] Endocrinology Comment on above: Hypercalcemia [E83.52] Start: 03-23-2024 Iv infusion therapy prophylaxis/dx ea hour THER/PROPH/DIAG IV INF [facility] Start: 03-23-2024 Iv infusion therapy/prophylaxis /dx 1st to 1 hr THER/PROPH/DIAG IV INF [facility] Start: 03-14-2024 End: 03-14-2024 Nursing evaluation of patient and report 03/14/2024 9:45 AM EST Nurse Visit Cardiology [address] [place] [id number] Wstr, Nurse Card Admin [facility] [address] [place] [id number] Routine check-up [Z00.00]; Coronary artery disease involving chickahominy indians-eastern division coronary artery of chickahominy indians-eastern division heart without angina pectoris [I25.10]; Essential hypertension [I10]; Pacemaker [Z95.0]; Paroxysmal atrial fibrillation (HCC) [I48.0]; Nonsustained ventricular tachycardia (HCC) [I47.29] Cardiology Comment on above: Routine check-up [Z00.00]; Coronary palak [place] disease involving chickahominy indians-eastern division coronary artery of chickahominy indians-eastern division heart without angina pectoris [I25.10]; Essential hypertension [I10]; Pacemaker [Z95.0]; Paroxysmal atrial fibrillation (HCC) [I48.0]; Nonsustained ventricular tachycardia (HCC) [I47.29] Start: 03-14-2024 End: 03-14-2024 Patient encounter procedure Nuclear Medicine Comment on above: Routine check-up [Z00.00]; Coronary palak ry disease involving chickahominy indians-eastern division coronary artery of chickahominy indians-eastern division heart without angina pectoris [I25.10]; Essential hypertension [I10]; Pacemaker [Z95.0]; Paroxysmal atrial fibrillation (HCC) [I48.0]; Nonsustained ventricular tachycardia (HCC) [I47.29] Start: 03-07-2024 End: 03-07-2024 Patient encounter procedure 03/07/2024 8:40 AM EST Office Visit Family Medicine [place] [address] [place], [place] [id number] Sophia Castillo APRN.[employer]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 [address] [place], [place] [address] 6 month follow up [facility] Comment on above: 6 month follow up Start: 02-19-2024 Annual PCP Team Chronic Disease Visit Annual PCP Team Chronic Disease Visit [facility] Start: 02-19-2024 BP Controlled (<130/80) BP Controlled (<130/80) [facility] Start: 02-19-2024 Covid-19 Vaccine ( season) Covid-19 Vaccine ( season) [facility] Comment on above: Postponed from 12/12/2022 (Declined at t his time) Start: 02-19-2024 RSV Vaccine (1 - 1-dose 60+ series) RSV Vaccine (1 - 1-dose 60+ series) [facility] Comment on above: Postponed from 2008 (Declined at t his time) Start: 02-19-2024 RSV Vaccine (1 - 1-dose 75+ series) RSV Vaccine (1 - 1-dose 75+ series) [facility] Comment on above: Postponed from 11/22/2023 (Declined at t his time) Start: 02-19-2024 Urine microalbumin profile DTaP,Tdap,Td Vaccine (1 - Tdap) [facility] Comment on above: Postponed from 11/22/1969 (Declined at t his time) Start: 02-08-2024 End: 05-09-2024 Bacteria identified in Urine by Culture URINE CULTURE Microbiology Routine Hematuria, unspecified type Expected: 02/08/2024, Expires: 05/09/2024 [facility] Comment on above: Expected: 02/08/2024, Expires: Start: 02-08-2024 End: 05-09-2024 Urinalysis complete panel - Urine URINALYSIS, WITH MICROSCOPIC Lab Routine Hematuria, unspecified type Expected: 02/08/2024, Expires: 05/09/2024 [facility] Work Phone: Comment on above: Expected: 02/08/2024, Expires: Start: 02-03-2024 End: 05-04-2024 Urinalysis complete panel - Urine URINALYSIS WITH MICROSCOPIC, REFLEX CULTURE Lab Routine Dysuria Urinary frequency Expected: 02/03/2024, Expires: 05/04/2024 [facility] Work Phone: Comment on above: Expected: 02/03/2024, Expires: Start: 02-03-2024 End: 02-03-2024 Patient encounter procedure [facility] Comment on above: Urine symptoms,frequency,odor and cloudy x 1 week. left shoulder pain, discuss next steps Start: 01-29-2024 End: 04-29-2024 Calcium.ionized [Moles/volume] in Blood CALCIUM, IONIZED Lab Routine Serum calcium elevated Expected: 01/29/2024, Expires: 04/29/2024 [facility] Comment on above: Expected: 01/29/2024, Expires: Start: 01-29-2024 End: 04-29-2024 Comprehensive metabolic 2000 panel - Serum or Plasma COMPREHENSIVE METABOLIC PANEL Lab Routine Hyperlipidemia, unspecified hyperlipidemia type Expected: 01/29/2024, Expires: 04/29/2024 [facility] Comment on above: Expected: 01/29/2024, Expires: Start: 01-29-2024 End: 04-29-2024 Hemoglobin A1c in Blood HEMOGLOBIN A1C Lab Routine Elevated glucose Expected: 01/29/2024, Expires: 04/29/2024 [facility] Work Phone: Comment on above: Expected: 01/29/2024, Expires: Start: 01-29-2024 End: 04-29-2024 Lipid 1996 panel - Serum or Plasma LIPID PANEL BASIC Lab Routine Hyperlipidemia, unspecified hyperlipidemia type Expected: 01/29/2024, Expires: 04/29/2024 [facility] Comment on above: Expected: 01/29/2024, Expires: Start: 01-29-2024 End: 04-29-2024 Parathyrin.intact [Mass/volume] in Serum or Plasma PTH INTACT Lab Routine Serum calcium elevated Expected: 01/29/2024, Expires: 04/29/2024 [facility] Comment on above: Expected: 01/29/2024, Expires: Start: 01-09-2024 End: 01-07-2025 NM Heart Perfusion W stress and W radionuclide IV NM CARDIAC PERF STRESS/PHARM Radiology Routine Routine check-up Coronary artery disease involving chickahominy indians-eastern division coronary artery of chickahominy indians-eastern division heart without angina pectoris Essential hypertension Pacemaker Paroxysmal atrial fibrillation (HCC) Nonsustained ventricular tachycardia (HCC) Expected: 01/09/2024 (Approximate), Expires: 01/07/2025 [facility] Comment on above: Expected: 01/09/2024 (Approximate), Expi res: 01/07/2025 Start: 12-13-2023 Covid-19 Vaccine ( season) Covid-19 Vaccine () [facility] Start: 12-13-2023 Influenza vaccination Influenza Vaccine (#1) [facility] Start: 12-09-2023 End: 12-09-2023 Patient encounter procedure [facility] Comment on above: reschedule device Start: 11-23-2023 End: 11-23-2023 Patient encounter procedure [facility] Comment on above: 1 year follow up Start: 10-02-2023 DIABETES SCREEN DIABETES SCREEN [facility] Start: 08-28-2023 Hepatitis B surface antibody level LDL CHOLESTEROL [facility] Start: 08-20-2023 ANNUAL PCP TEAM CHRONIC DISEASE VISIT ANNUAL PCP TEAM CHRONIC DISEASE VISIT [facility] Start: 08-20-2023 COLORECTAL CANCER SCREENING COLORECTAL CANCER SCREENING [facility] Comment on above: Postponed from 1993 (Declined at t his time) Start: 08-20-2023 COVID-19 VACCINE (4 - Booster for Pfizer series) COVID-19 VACCINE (4 - Booster for Pfizer series) [facility] Comment on above: Postponed from 06/17/2021 (Declined at t his time) Start: 08-20-2023 COVID-19 VACCINE (4 - Pfizer series) COVID-19 VACCINE (4 - Pfizer series) [facility] Comment on above: Postponed from 06/17/2021 (Declined at t his time) Start: 08-20-2023 Mammography [facility] [facility] Comment [facility] above: [facility] from 08/26/2015 (Declined at t his time) Start: 08-20-2023 Screening for malignant neoplasm of breast Mammogram Screening [facility] Comment on above: Postponed from 08/26/2015 (Declined at t his time) Start: 08-20-2023 Screening for malignant neoplasm of colon Colorectal Cancer Screening [facility] Comment on above: Postponed from 1993 (Declined at t his time) Start: 08-20-2023 SHINGRIX VACCINE (1 of 2) SHINGRIX VACCINE (1 of 2) [facility] Comment on above: Postponed from 1998 (Declined at t his time) Start: 08-19-2023 End: 11-18-2023 Comprehensive metabolic 2000 panel - Serum or Plasma COMP METABOLIC PANEL Lab Routine Essential hypertension Expected: 08/19/2023, Expires: 11/18/2023 [facility] Work Phone: Comment on above: Expected: 08/19/2023, Expires: 4 Start: 08-19-2023 End: 11-18-2023 Hemoglobin A1c in Blood HGB A1C Lab Routine Elevated glucose Expected: 08/19/2023, Expires: 11/18/2023 [facility] Work Phone: Comment on above: Expected: 08/19/2023, Expires: 4 Start: 08-19-2023 End: 11-18-2023 Lipid 1996 panel - Serum or Plasma LIPID PANEL BASIC Lab Routine Hyperlipidemia, unspecified hyperlipidemia type Expected: 08/19/2023, Expires: 11/18/2023 [facility] Work Phone: Comment on above: Expected: 08/19/2023, Expires: 4 Start: 05-08-2023 Patient discharge [facility] Start: 05-08-2023 Radiography of foot Foot 2 Views [facility] Start: 05-08-2023 XR Foot 2 Views [facility] Start: 04-30-2023 Nicotine measurement [facility] Start: 04-13-2023 Advance Directive Discussion Advance Directive Discussion [facility] Start: 04-13-2023 Behavioral Health Screening Behavioral Health Screening [facility] Start: 04-13-2023 Depression Assessment Depression Assessment [facility] Start: 04-02-2023 ANNUAL PCP TEAM CHRONIC DISEASE VISIT ANNUAL PCP TEAM CHRONIC DISEASE VISIT [facility] Start: 04-02-2023 BP CONTROLLED (<130/80) BP CONTROLLED (<130/80) [facility] Start: 02-13-2023 ANNUAL PCP TEAM CHRONIC DISEASE VISIT ANNUAL PCP TEAM CHRONIC DISEASE VISIT [facility] Start: 12-12-2022 Influenza vaccination INFLUENZA (#1) [facility] Start: 12-03-2022 Dual energy X-ray absorptiometry Dexa Bone Density Study [facility] Start: 12-03-2022 DXA Bone [Mass/Area] Bone density [facility] Start: 10-21-2022 Patient referral [facility] Work Phone: Start: 08-09-2022 ANNUAL PCP TEAM CHRONIC DISEASE VISIT ANNUAL PCP TEAM CHRONIC DISEASE VISIT [facility] Start: 07-29-2022 Hepatitis B surface antibody level LDL CHOLESTEROL [facility] Start: 05-16-2022 End: 05-15-2023 Radiologic exam chest 2 views XR CHEST 2V FRONTAL/LAT Radiology Routine Bacterial pneumonia Expected: 05/16/2022, Expires: 05/15/2023 [facility] Work Phone: Comment on above: Expected: 05/16/2022, Expires: 4 Start: 04-13-2022 ADVANCE DIRECTIVE DISCUSSION ADVANCE DIRECTIVE DISCUSSION [facility] Start: 04-13-2022 DEPRESSION ASSESSMENT DEPRESSION ASSESSMENT [facility] Start: 02-08-2022 ANNUAL PCP TEAM CHRONIC DISEASE VISIT ANNUAL PCP TEAM CHRONIC DISEASE VISIT [facility] Start: 02-08-2022 BP CONTROLLED (<130/80) BP CONTROLLED (<130/80) [facility] Start: 02-07-2022 End: 04-09-2022 CBC panel - Blood by Automated count CBC Lab Routine Essential hypertension Expected: 02/07/2022 (Approximate), Expires: 04/09/2022 [facility] Work Phone: Comment on above: Expected: 02/07/2022 (Approximate), Expi res: 04/09/2022 Start: 02-07-2022 End: 04-09-2022 Comprehensive metabolic 2000 panel - Serum or Plasma COMP METABOLIC PANEL Lab Routine Hyperlipidemia, unspecified hyperlipidemia type Essential hypertension Elevated glucose Expected: 02/07/2022 (Approximate), Expires: 04/09/2022 [facility] Work Phone: Comment on above: Expected: 02/07/2022 (Approximate), Expi res: 04/09/2022 Start: 02-07-2022 End: 04-09-2022 Hemoglobin A1c/Hemoglobin.total in Blood HGB A1C Lab Routine Elevated glucose Expected: 02/07/2022 (Approximate), Expires: 04/09/2022 [facility] Work Phone: Comment on above: Expected: 02/07/2022 (Approximate), Expi res: 04/09/2022 Start: 02-07-2022 End: 04-09-2022 LIPID PANEL BASIC LIPID PANEL BASIC Lab Routine Hyperlipidemia, unspecified hyperlipidemia type Essential hypertension Elevated glucose Expected: 02/07/2022 (Approximate), Expires: 04/09/2022 [facility] Work Phone: Comment on above: Expected: 02/07/2022 (Approximate), Expi res: 04/09/2022 Start: 12-15-2021 Patient referral [facility] Work Phone: Start: 12-12-2021 Influenza vaccination INFLUENZA (#1) [facility] Start: 10-01-2021 Hepatitis B surface antibody level LDL CHOLESTEROL [facility] Start: 08-20-2021 COVID-19 VACCINE (4 - Booster for Pfizer series) COVID-19 VACCINE (4 - Booster for Pfizer series) [facility] Start: 06-17-2021 COVID-19 VACCINE (4 - Booster for Pfizer series) COVID-19 VACCINE (4 - Booster for Pfizer series) [facility] Start: 04-13-2021 ADVANCE DIRECTIVE DISCUSSION ADVANCE DIRECTIVE DISCUSSION [facility] Start: 04-13-2021 DEPRESSION ASSESSMENT DEPRESSION ASSESSMENT [facility] Start: 12-04-2020 Colonoscopy COLONOSCOPY [facility] Start: 12-04-2020 COLORECTAL CANCER SCREENING COLORECTAL CANCER SCREENING [facility] Start: 12-04-2020 Screening for malignant neoplasm of colon [facility] Start: 04-29-2019 FECAL OCCULT BLOOD FECAL OCCULT BLOOD [facility] Start: 04-29-2019 Screening for malignant neoplasm of colon Fecal Occult Blood [facility] Start: 04-12-2019 Adult depression screening assessment DEPRESSION SCREENING [facility] Start: 08-26-2015 Mammography MAMMOGRAM [facility] Start: 08-26-2015 Screening for malignant neoplasm of breast Mammogram Screening [facility] Start: 2013 BONE DENSITY BONE DENSITY [facility] Start: 1998 SHINGRIX VACCINE (1 of 2) SHINGRIX VACCINE (1 of 2) [facility] Start: 1993 COLOGUARD (FIT-DNA) COLOGUARD (FIT-DNA) [facility] Start: [address] COLONOGRAPHY [facility] Start: 1993 Screening for malignant neoplasm of colon [facility] Start: 1993 SIGMOIDOSCOPY SIGMOIDOSCOPY [facility] Start: 11-22-1967 [facility] Start: 1966 Anxiety Screening Anxiety Screening [facility] Start: 1966 BP CONTROLLED (<130/80) BP CONTROLLED (<130/80) [facility] Start: 1966 Depression Screening Depression Screening [facility] Start: 1966 Spirometry Spirometry [facility] End: 10-29-2025 BD DXA TRABECULAR BONE SCORE (TBS) BD DXA TRABECULAR BONE SCORE (TBS) Radiology Routine Primary hyperparathyroidism (HCC) 1 Occurrences starting 09/29/2024 until 10/29/2025 [facility] Comment on above: 1 Occurrences starting 09/29/2024 until 10/29/2025 BD DXA TRABECULAR KARIN NE SCORE (TBS) BD DXA TRABECULAR BONE SCORE (TBS) Radiology Routine Primary hyperparathyroidism (HCC) 11/02/2024 2:33 PM EDT [facility] Work Phone: CALCIUM, 24 HR URINE CALCIUM, 24 HR URINE Lab Routine Hypercalcemia Ordered: 06/28/2024 [facility] Comment on above: Ordered: 06/28/2024 CARDIAC IMPLANTABLE DEVICE CHECK CARDIAC IMPLANTABLE DEVICE CHECK PACEART Routine Pacemaker reprogramming/check 1 Occurrences starting 08/25/2024 [facility] Comment on above: 1 Occurrences starting 08/25/2024 CBC W Auto Different ial panel - Blood [facility] Comprehensive metabo lic 2000 panel - Serum or Plasma [facility] Cotinine measurement [facility] CREATININE, 24 HOUR URINE CREATI NINE, 24 HOUR URINE Lab Routine Hypercalcemia Ordered: 06/28/2024 [facility] Comment on above: Ordered: 06/28/2024 End: 10-29-2025 DXA Skeletal system.axial Views for bone density and vertebral fracture DXA-AXIAL SKELETON WITH VFA Radiology Routine Primary hyperparathyroidism (HCC) 1 Occurrences starting 09/29/2024 until 10/29/2025 [facility] Work Phone: Comment on above: 1 Occurrences starting 09/29/2024 until 10/29/2025 End: 10-29-2025 DXA-FOREARM SKELETON DXA-FOREARM SKELETON Radiology Routine Primary hyperparathyroidism (HCC) 1 Occurrences starting 09/29/2024 until 10/29/2025 [facility] Comment on above: 1 Occurrences starting 09/29/2024 until 10/29/2025 ECG B/O W INTERP (ME D OFFICE) ECG B/O W INTERP (MED OFFICE) ECG Routine Coronary artery disease involving [place] coronary artery of [place] heart without angina pectoris Cardiac pacemaker Essential hypertension Hyperlipidemia, unspecified hyperlipidemia type Congestive heart failure, unspecified HF chronicity, unspecified heart failure type (HCC) REBECCA (obstructive sleep apnea) Biventricular implantable cardioverter-defibrillator (ICD) in situ Ordered: 11/17/2022 [facility] Work Phone: Comment on above: Ordered: 11/17/2022 ECG B/O W INTERP (ME D OFFICE) ECG B/O W INTERP (MED OFFICE) ECG Routine Routine check-up Coronary artery disease involving [place] indians[place]eastern division coronary artery of [place]ians[place] heart without angina pectoris Essential hypertension Pacemaker Paroxysmal atrial fibrillation (HCC) Nonsustained ventricular tachycardia (HCC) Ordered: 12/09/2023 [facility] Work Phone: Comment on above: Ordered: 12/09/2023 ECG B/O W INTERP (ME D OFFICE) ECG B/O W INTERP (MED OFFICE) ECG Routine PAF (paroxysmal atrial fibrillation) (HCC) Ordered: 05/05/2024 [facility] Work Phone: Comment on above: Ordered: 05/05/2024 End: 10-22-2022 ECG COMPLETE ECG COMPLETE ECG Routine Coronary artery disease involving chick[place]om[place] indians[place]eastern division coronary artery of chick[place] indians[place] heart without angina pectoris PAF (paroxysmal atrial fibrillation) (HCC) 1 Occurrences starting 10/22/2021 until 10/22/2022 [facility] Work Phone: Comment on above: 1 Occurrences starting 10/22/2021 until 10/22/2022 End: 05-05-2025 Echocardiography ECHO Cardiology Routine Complete heart block (HCC) Cardiac resynchronization therapy pacemaker ([facility] NURSE-P) in place 1 Occurrences starting 05/05/2024 until 05/05/2025 [facility] Comment on above: 1 Occurrences starting 05/05/2024 until 05/05/2025 End: 09-24-2024 MG Breast Screening [facility] SCREENING Radiology Routine Encounter for screening mammogram for breast cancer 1 Occurrences starting 08/26/2023 until 09/24/2024 [facility] Work Phone: Comment on above: 1 Occurrences starting 08/26/2023 until 09/24/2024 Nicotine [Mass/volum e] in Serum or Plasma [facility] Patient referral [facility] Work Phone: End: 11-08-2022 Screening mammography bi 2-view breast inc cad [facility] SCREENING Radiology Routine Encounter for screening mammogram for breast cancer 1 Occurrences starting 10/09/2021 until 11/08/2022 [facility] Work Phone: Comment on above: 1 Occurrences starting 10/09/2021 until 11/08/2022 Sodium [Moles/time] in 24 hour Urine SODIUM 24 HR URINE Lab Routine Hypercalcemia Ordered: 06/28/2024 [facility] Comment on above: Ordered: 06/28/2024 US.doppler Lower ext remity vein [facility] Work Phone: [facility] Work Phone: End: 04-28-2024 XR SHOULDER GENERAL 3V OR MORE AP/TRUE AP/OTHER LEFT XR SHOULDER GENERAL 3V OR MORE AP/TRUE AP/OTHER LEFT Radiology Routine Acute pain of left shoulder 1 Occurrences starting 03/30/2023 until 04/28/2024 [facility] Work Phone: Comment on above: 1 Occurrences starting 03/30/2023 until 04/28/2024 [facility] Immunizations Immunization Date Immunization Notes Care Provider [facility] 03-07-2024 influenza, high dose seasonal, preservative-free Sophia Castillo CHIEF 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 Work Phone: [facility] 03-07-2024 influenza virus vacc ine, unspecified formulation Deion Russell CHIEF 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 Work Phone: [facility] 02-18-2023 influenza (HD-IIV4) vaccine, age 65+ yr, high dose, quadrivalent, PF (FLUZONE HIGH-DOSE) Sophia Castillo CHIEF 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 Work Phone: [facility] 02-18-2023 influenza virus vacc ine, unspecified formulation Da De La Rosa MD Work Phone: [facility] 01-18-2022 influenza, high dose seasonal, preservative-free Edmundo Cruz MD Work Phone: [facility] 04-22-2021 COVID-19 vaccine, ag e 12+ yr ([employer]-[id number] - PURPLE TOP) Edmundo Cruz MD Work Phone: [facility] 02-08-2021 influenza, high-dose , quadrivalent vaccine (FLUZONE HIGH DOSE QUADRIVALENT) Edmundo Cruz MD Work Phone: [facility] 10-04-2020 COVID-19 vaccine, ag e 12+ yr (PFIZER-BIONTECH - PURPLE TOP) Edmundo Cruz MD Work Phone: [facility] 09-13-2020 COVID-19 vaccine, ag e 12+ yr (PFIZER-BIONTECH - PURPLE TOP) Edmundo Cruz MD Work Phone: [facility] 01-10-2020 influenza, high-dose , quadrivalent vaccine (FLUZONE HIGH DOSE QUADRIVALENT) Edmundo Cruz MD Work Phone: [facility] 12-30-2019 Influenza virus vaccine DrAnjana Cruz Work Phone: [facility] 01-15-2018 influenza, high dose seasonal, preservative-free Edmundo Cruz MD Work Phone: [facility] Work Phone: 01-12-2017 influenza, high dose seasonal, preservative-free Edmundo Cruz MD Work Phone: [facility] 05-12-2016 pneumococcal polysaccharide vaccine, 23 valent Edmundo Cruz MD Work Phone: [facility] 02-02-2016 influenza, high dose seasonal, preservative-free Edmundo Cruz MD Work Phone: [facility] Work Phone: 01-13-2015 influenza, high dose seasonal, preservative-free Edmundo Cruz MD Work Phone: [facility] 09-12-2014 pneumococcal conjuga te vaccine, 13 valent Edmundo Cruz MD Work Phone: [facility] 01-25-2014 influenza, seasonal, injectable Edmundo Cruz MD Work Phone: [facility] 02-08-2013 influenza virus vacc ine, unspecified formulation Edmundo Cruz MD Work Phone: [facility] Work Phone: Payers Date Payer Category Payer Self-pay [id number] 2014 Medicare [employer]IC[employer] THP [facility] O [id number] 2014-Present [phone] [id number] [place] [address] [facility] [id number] 2014 Medicare [employer] MEDICARE THP [employer] O [id number] 2014-Present [phone] [address] [place] [address] [facility] [id number] 2014 Medicare (Managed Care) THP [facility] Address: [address] [place] [id number] 2012 Unknown [id number] Unknown [id number] Unknown [id number] Unknown [id number] Unknown [id number] .[id number] Unknown [id number] Unknown [id number] .[id number] Unknown [id number] .[id number] Unknown [id number] .[id number] Unknown [id number] .[id number] Unknown [id number] .[id number] Unknown [id number] .[id number] Unknown [id number] .[id number] Unknown [id number] .[id number] Unknown [id number] .[id number] Unknown [id number] .[id number] Unknown [id number] .[id number] Unknown [id number] .[id number] Unknown [id number] .[id number] Unknown [id number] Social History Date Type Detail Facility Start: 08-15-2014 End: 03-28-2024 Tobacco smoking status MAIS Ex-smoker [facility] History of tobacco use Cigarette Smoker [facility] Start: 02-08-2021 End: 04-14-2023 Alcohol intake Current non-drinker of alcohol (finding) [facility] Start: 1950 Sex Assigned At Not on file [facility] Start: 05-28-2021 End: 04-30-2023 Tobacco smoking status [facility] Unknown if ever smoked [facility] Start: 08-02-2020 Rare [facility] Start: 08-02-2020 None [facility] Start: 08-02-2020 Spouse/ Signif icant Other [facility] Start: 08-03-2020 Non-smoker [facility] Start: 1950 Sex Assigned At Female W [facility] Start: 09-30-2021 End: 02-13-2022 Exposure to SARS-CoV-2 (event) Not sure [facility] History of tobacco use Current smoker [facility] Start: 08-15-2014 End: 08-19-2022 Cigarettes smoked current (pack per day) - Reported 1 [facility] Work Phone: Start: 08-15-2014 End: 03-28-2024 Tobacco use and exposure Smokeless tobacco non-user [facility] Start: 08-19-2022 End: 11-17-2022 Tobacco use panel [facility] Work Phone: Start: 03-14-2012 Adult Depression Screening Assessment 0 [facility] Work Phone: Start: 12-09-2023 End: 03-28-2024 Alcoholic beverage intake Current drinker of alcohol (finding) [facility] Start: 12-09-2023 Tobacco Comment Quit around 1995 [facility] Start: 12-09-2023 Alcohol Comment occ [facility] History of tobacco use Passive smoker [facility] Start: 05-04-2024 End: 11-03-2024 Alcoholic beverage intake Ex-drinker (finding) [facility] Start: 06-29-2024 End: 07-27-2024 Sex Female (finding) [facility] Medical Equipment Procedure Code Equipment Code Equipment Origin al Text Equipment Identifier Dates Bunionectomy 5.0mm FT Headles s Compression Screw, 40mm FDA Start: 05-08-2023 Bunionectomy [place] 40mm FT Headless Compression Screw, 4.0mm FDA Start: 05-08-2023 Bunionectomy 5.0mm FT Headles s Compression Screw, 40mm FDA Start: 05-08-2023 Bunionectomy [place] 40mm FT Headless Compression Screw, 4.0mm FDA Start: 05-08-2023 Bunionectomy 5.0mm FT Headles s Compression Screw, 40mm FDA Start: 05-08-2023 Bunionectomy [place] 40mm FT Headless Compression Screw, 4.0mm FDA Start: 05-08-2023 Bunionectomy 5.0mm FT Headles s Compression Screw, 40mm FDA Start: 05-08-2023 Bunionectomy [place] 40mm FT Headless Compression Screw, 4.0mm FDA Start: 05-08-2023 PRE-LOADED LENS FDA Start: 03-23-2017 21.0 DIOPTER PRELOADED EYE REINA FDA Start: 04-16-2017 LEAD KIT 28CM BL ADDER STIM FDA Start: 09-21-2018 GENERATOR,BLADDE R STIM FDA Start: 10-05-2018 PRE-LOADED LENS FDA Start: 03-23-2017 21.0 DIOPTER PRELOADED EYE REINA FDA Start: 04-16-2017 LEAD KIT 28CM BL ADDER STIM FDA Start: 09-21-2018 GENERATOR,BLADDE R STIM FDA Start: 10-05-2018 PRE-LOADED LENS FDA Start: 03-23-2017 21.0 DIOPTER PRELOADED EYE REINA FDA Start: 04-16-2017 LEAD KIT 28CM BL ADDER STIM FDA Start: 09-21-2018 GENERATOR,BLADDE R STIM FDA Start: 10-05-2018 PRE-LOADED LENS FDA Start: 03-23-2017 21.0 DIOPTER PRELOADED EYE REINA FDA Start: 04-16-2017 LEAD KIT 28CM BL ADDER STIM FDA Start: 09-21-2018 GENERATOR,BLADDE R STIM FDA Start: 10-05-2018 PRE-LOADED LENS FDA Start: 03-23-2017 21.0 DIOPTER PRELOADED EYE REINA FDA Start: 04-16-2017 LEAD KIT 28CM BL ADDER STIM FDA Start: 09-21-2018 GENERATOR,BLADDE R STIM FDA Start: 10-05-2018 PRE-LOADED LENS FDA Start: 03-23-2017 21.0 DIOPTER PRELOADED EYE REINA FDA Start: 04-16-2017 LEAD KIT 28CM BL ADDER STIM FDA Start: 09-21-2018 GENERATOR,BLADDE R STIM FDA Start: 10-05-2018 PRE-LOADED LENS FDA Start: 03-23-2017 21.0 DIOPTER PRELOADED EYE REINA FDA Start: 04-16-2017 LEAD KIT 28CM BL ADDER STIM FDA Start: 09-21-2018 GENERATOR,BLADDE R STIM FDA Start: 10-05-2018 PRE-LOADED LENS FDA Start: 03-23-2017 21.0 DIOPTER PRELOADED EYE REINA FDA Start: 04-16-2017 LEAD KIT 28CM BL ADDER STIM FDA Start: 09-21-2018 GENERATOR,BLADDE R STIM FDA Start: 10-05-2018 PRE-LOADED LENS FDA Start: 03-23-2017 21.0 DIOPTER PRELOADED EYE REINA FDA Start: 04-16-2017 LEAD KIT 28CM BL ADDER STIM FDA Start: 09-21-2018 GENERATOR,BLADDE R STIM FDA Start: 10-05-2018 PRE-LOADED LENS FDA Start: 03-23-2017 21.0 DIOPTER PRELOADED EYE REINA FDA Start: 04-16-2017 LEAD KIT 28CM BL ADDER STIM FDA Start: 09-21-2018 GENERATOR,BLADDE R STIM FDA Start: 10-05-2018 PRE-LOADED LENS FDA Start: 03-23-2017 21.0 DIOPTER PRELOADED EYE REINA FDA Start: 04-16-2017 LEAD KIT 28CM BL ADDER STIM FDA Start: 09-21-2018 GENERATOR,BLADDE R STIM FDA Start: 10-05-2018 PRE-LOADED LENS FDA Start: 03-23-2017 21.0 DIOPTER PRELOADED EYE REINA FDA Start: 04-16-2017 LEAD KIT 28CM BL ADDER STIM FDA Start: 09-21-2018 GENERATOR,BLADDE R STIM FDA Start: 10-05-2018 PRE-LOADED LENS FDA Start: 03-23-2017 21.0 DIOPTER PRELOADED EYE REINA FDA Start: 04-16-2017 LEAD KIT 28CM BL ADDER STIM FDA Start: 09-21-2018 GENERATOR,BLADDE R STIM FDA Start: 10-05-2018 PRE-LOADED LENS FDA Start: 03-23-2017 21.0 DIOPTER PRELOADED EYE REINA FDA Start: 04-16-2017 LEAD KIT 28CM BL ADDER STIM FDA Start: 09-21-2018 GENERATOR,BLADDE R STIM FDA Start: 10-05-2018 PRE-LOADED LENS FDA Start: 03-23-2017 21.0 DIOPTER PRELOADED EYE REINA FDA Start: 04-16-2017 LEAD KIT 28CM BL ADDER STIM FDA Start: 09-21-2018 GENERATOR,BLADDE R STIM FDA Start: 10-05-2018 PRE-LOADED LENS FDA Start: 03-23-2017 21.0 DIOPTER PRELOADED EYE REINA FDA Start: 04-16-2017 LEAD KIT 28CM BL ADDER STIM FDA Start: 09-21-2018 KATE SAMANIEGO STIM FDA Start: 10-05-2018 Goals Date Patient Goal Desired Activity /State Personal health goal Functional Status Date Assessment Result Facility 11-16-2014 Are you deaf, or do you have serious difficulty hearing No 11/16/2014 11:54 AM EDT Kei Cortes LPN No [facility] 11-16-2014 Are you blind, or do you have serious difficulty seeing, even when wearing glasses No 11/16/2014 11:54 AM EDT Kei Cortes LPN No [facility] 11-16-2014 Do you have serious difficulty walking or climbing stairs Yes 11/16/2014 11:54 AM EDT Kei Cortes LPN Yes [facility] 11-16-2014 Do you have difficul ty dressing or bathing No 11/16/2014 11:54 AM EDT Kei Cortes LPN No [facility] 11-16-2014 Because of a physica l, mental, or emotional condition, do you have difficulty doing errands alone such as visiting a physician's office or shopping No 11/16/2014 11:54 AM EDT Kei Cortes LPN No [facility] Mental Status Date Assessment Result Facility 03-22-2024 Cognitive function Awake;Alert;A ppropriate; Follows Commands [facility] Work Phone: 03-21-2024 Cognitive function Voice/Name [facility] Work Phone: 05-08-2023 Cognitive function Voice/Name;Touch/Shaki ng [facility] Work Phone: 02-07-2022 Cognitive function Voice/Name [facility] Work Phone: 02-06-2022 Cognitive function Voice/Name [facility] Work Phone: 02-05-2022 Cognitive function Voice/Name [facility] Work Phone: 11-16-2014 Because of a physica l, mental, or emotional condition, do you have serious difficulty concentrating, remembering, or making decisions No 11/16/2014 11:54 AM EDT Kei Cortes LPN No [facility] Clinical Notes 08-30-2020 to 12-09-2024 Telephone Encounter - Edmundo Cruz MD - 12/09/2024 10:49 AM EDTTelephone Encounter - Edmundo Cruz MD - 12/09/2024 10:49 AM EDTTelephone Encounter - Maggie Perry - 12/08/2024 11:31 AM EDT Note Date & Type Note Facility 12-09-2024 Telephone encounter Note OK to refill as ordered Edmundo Cruz MD [facility] 12-09-2024 Miscellaneous Notes OK to refill as ordered Edmundo Cruz MD Prescription Refill Information The patient has been identified by name and date of : Yes Caregiver verified no other encounters exist for this prescription request: Yes Caregiver confirmed with patient/requestor that no other refills are due, in the near future, with this provider at this time: Yes The last office visit in the department:09/06/24 Does the patient have a future office visit with this provider/department: Yes03/10 Requested Prescriptions Pending Prescriptions Disp Refills pravastatin (PRAVACHOL) 40 mg tablet 90 tablet 3 Sig: Take 1 tablet by mouth daily at bedtime. Maggie Perry December 08, 2024 11:31 AM documented in this encounter [facility] 12-08-2024 Telephone encounter Note Prescription Refill Information The patient has been identified by name and date of : Yes Caregiver verified no other encounters exist for this prescription request: Yes Caregiver confirmed with patient/requestor that no other refills are due, in the near future, with this provider at this time: Yes The last office visit in the department:09/06/24 Does the patient have a future office visit with this provider/department: Yes03/10 Requested Prescriptions Pending Prescriptions Disp Refills pravastatin (PRAVACHOL) 40 mg tablet 90 tablet 3 Sig: Take 1 tablet by mouth daily at bedtime. Maggie Perry December 08, 2024 11:31 AM [facility] 11-23-[address] Cruz has not written a prescription for gabapentin 800mg. The last rx for gabapentin was written 10/05/2019 for 600mg. Phoned pharmacy, spoke /c pharmacist. She states pt receives Gabapentin 800mg from Dr. Clemente (Neuro @ [facility]). Rx was last filled on 10/20/24 for 270 tablets. Pt has 2 refills left. Phoned pt, notified of the same. Advised to contact Neuro if she was having any issues with gabapentin. Pt verbalized understanding. [facility] 11-23-[address] Cruz has not written a prescription for gabapentin 800mg. The last rx for gabapentin was written 10/05/2019 for 600mg. Phoned pharmacy, spoke /c pharmacist. She states pt receives Gabapentin 800mg from Dr. Clemente (Neuro @ [facility]). Rx was last filled on 10/20/24 for 270 tablets. Pt has 2 refills left. Phoned pt, notified of the same. Advised to contact Neuro if she was having any issues with gabapentin. Pt verbalized understanding. Prescription Refill Information The patient has been identified by name and date of : Yes Caregiver verified no other encounters exist for this prescription request: Yes Caregiver confirmed with patient/requestor that no other refills are due, in the near future, with this provider at this time: Yes The last office visit in the department: 09/06/2024 Does the patient have a future office visit with this provider/department: Yes Requested Prescriptions Pending Prescriptions Disp Refills gabapentin (NEURONTIN) 800 mg tablet 270 tablet 3 Sig: Take 1 tablet by mouth three times a day. Kiara Floresmanuel November 23, 2024 3:49 PM documented in this encounter [facility] 11-23-2024 Telephone encounter Note Prescription Refill Information The patient has been identified by name and date of : Yes Caregiver verified no other encounters exist for this prescription request: Yes Caregiver confirmed with patient/requestor that no other refills are due, in the near future, with this provider at this time: Yes The last office visit in the department: 09/06/2024 Does the patient have a future office visit with this provider/department: Yes Requested Prescriptions Pending Prescriptions Disp Refills gabapentin (NEURONTIN) 800 mg tablet 270 tablet 3 Sig: Take 1 tablet by mouth three times a day. Kiara Crum November 23, 2024 3:49 PM [facility] 11-03-2024 Instructions Narcisa Lomeli MD - 11/03/2024 9:20 AM EDT Please do labs in one year Take Vitamin D 1000 units daily Continue to take calcium in diet, no supplements please Avoid any falls, lifting heavy weights documented in this encounter [facility] 11-03-2024 Note HNO ID: [id number] Author: NARCISA LOMELI MD Service: ? Author Type: Physician Type: Progress Notes Filed: 11/03/2024 22:30 Note Text: Endocrinology and Metabolism [place] Follow up note NAME: Jenni Albright is a 73 year old old female PCP: Edmundo Cruz MD Requesting Provider: Deion Russell APRN. CNP Chief Complaint: Hypercalcemia, elevated PTH History of Present Illness: Jenni Albright is a 73 year old old female presenting with hypercalcemia. She is accompanied by her Initial visit 03/28/2024 Last visit 09/29/24 From prior documentation, with updates today She has had high calcium for over 3 years, but reports she was not aware of this Has a hx of MS Personal history of kidney stones: no Personal history of fractures: None Family history of osteoporosis: no Height loss: unknown Weight <127 lbs: No Prior radiation to the neck: no Personal history of thyroid disease: no Family history of calcium issues, thyroid or parathyroid disease: no Calcium Intake: Patient eats ~1 serving of calcium/day- 1 yogurt cup every morning, started drinking milk 1 glass a day, some times drinks orange juice when it is on sale Patient takes multivitamins, but no separate calcium supplements or tums Vitamin D Intake: I stared her on 50,000 units of Vitamin d which she has not completed course for yet No recent or prolonged steroid use Smoking: Ex-smoker- remote hx Alcohol: occasionally Exercise: no regular exercise program History of falls: reports her legs give out sometimes due to MS, and has falls occasionally Menopause at age: 40s, she had partial hysterectomy due to large tumor on the uterus, surgical pathology was benign HRT: No No hx of cancer or radiation therapy Denied any steroid use, use of lithium or HCTZ in the past Has constipation for several years, and this is baseline for her Denied any symptoms at this time include anorexia, N/V, polyuria, polydipsia, blood in urine, bone pains No changes since last seen She is presenting today with DXA scan results 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 11/19/2015 BBB (bundle branch block) CAD (coronary artery disease) 07/2013 non-STMI/CABG CHB (complete heart block) (HCC) Congestive heart failure (HCC) GERD (gastroesophageal reflux disease) hiatal hernia History of DVT (deep vein thrombosis) 09/14/2015 History of rectal polypectomy 07/2011 Hyperlipidemia Hypertension Iron deficiency anemia Multiple sclerosis (HCC) Neuropathic pain Legs>arms from MS REBECCA (obstructive sleep apnea) on CPAP Pacemaker Pulmonary embolism (HCC) 07/2013 during hospitalization for [place] Vitamin D deficiency PAST SURGICAL HISTORY Procedure Laterality Date APPENDECTOMY BIVENTICULAR PACEMAKER INSERTION 09/05/2014 [employer] CABG (2) VEIN GRAFTS AND ARTERIAL GRAFT(S 07/22/2013 THURMAN to LAD and Dx CARPAL TUNNEL COLONOSCOPY 08/01/2011 5mm rectal polyp COLONOSCOPY 12/05/2015 rectal polyp (adenoma) and diverticulosis CYSTOSCOPY 09/21/2018 EGD 07/17/2011 sliding hiatal hernia EGD 11/19/2015 Dr. Lema- HEART CATHETERIZATION 01/29/2016 HEART CATHETERIZATION 07/21/2013 The patient was advised a cardiothoracic consultation for coronary artery bypass surgery. Mid and distal LAD has severe disease. This is not suitable for percutaneous intervention and it is a bifurcation lesion. 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 Thiago Verdugo REMV CATARACT EXTRACAP,INSERT LENS Left 04/16/2017 Dr. Das ROTATOR CUFF REPAIR Right TOTAL ABDOM HYSTERECTOMY 1983 VENA CAVA FILTER INSERTION 08/16/2013 FAMILY HISTORY Problem Relation Age of Onset Diabetes Mother Coronary Artery Disease Mother NE's Cancer Father Heart Sister NE's, valve replaced Stroke Sister Ovarian cancer Sister Multiple Sclerosis Sister Hypertension Sister Coronary Artery Disease Brother 2 brothers CABG Aneurysm Brother Calcium Disorder No Family History Parathyroid Disease No Family History Osteoporosis No Family History ALLERGIES Allergen Reactions Glatiramer Rash, Itching Social History Tobacco Use Smoking status: Former Current packs/day: 1.00 Average packs/day: 1 pack/day for 20.0 years (20.0 ttl pk-yrs) Types: Cigarettes Passive exposure: Past Smokeless tobacco: Never Tobacco comments: Quit around 1995 Vaping Use Vaping status: Never Used Substance Use Topics Alcohol use: Not Currently Comment: occ Drug use: Never Current Outpatient Medications Medication Sig DULERA 200-5 mcg/actuation inhaler Inhale 1 puff as instructed two times a day. SYMBICORT 160-4.5 mcg/actuation inhaler Inhale 2 puffs as instructed two times a day as needed. esomeprazole (NEXIUM) 40 mg capsule Take 1 capsule by mouth daily before breakfast. (more content not included)... [facility] 11-03-2024 History of Present illness Narrative Endocrinology and Metabolism [place] Follow up note NAME: Jenni Albright is a 73 year old old female PCP: Edmundo Cruz MD Requesting Provider: Deion Russell APRN. 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 She is accompanied by her Initial visit 03/28/2024 Last visit 09/29/24 From prior documentation, with updates today She has had high calcium for over 3 years, but reports she was not aware of this Has a hx of MS Personal history of kidney stones: no Personal history of fractures: None Family history of osteoporosis: no Height loss: unknown Weight <127 lbs: No Prior radiation to the neck: no Personal history of thyroid disease: no Family history of calcium issues, thyroid or parathyroid disease: no Calcium Intake: Patient eats ~1 serving of calcium/day- 1 yogurt cup every morning, started drinking milk 1 glass a day, some times drinks orange juice when it is on sale Patient takes multivitamins, but no separate calcium supplements or tums Vitamin D Intake: I stared her on 50,000 units of Vitamin d which she has not completed course for yet No recent or prolonged steroid use Smoking: Ex-smoker- remote hx Alcohol: occasionally Exercise: no regular exercise program History of falls: reports her legs give out sometimes due to MS, and has falls occasionally Menopause at age: 40s, she had partial hysterectomy due to large tumor on the uterus, surgical pathology was benign HRT: No No hx of cancer or radiation therapy Denied any steroid use, use of lithium or HCTZ in the past Has constipation for several years, and this is baseline for her Denied any symptoms at this time include anorexia, N/V, polyuria, polydipsia, blood in urine, bone pains No changes since last seen She is presenting today with DXA scan results 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 11/19/2015 BBB (bundle branch block) CAD (coronary artery disease) 07/2013 non-STMI/CABG CHB (complete heart block) (HCC) Congestive heart failure (HCC) GERD (gastroesophageal reflux disease) hiatal hernia History of DVT (deep vein thrombosis) 09/14/2015 History of rectal polypectomy 07/2011 Hyperlipidemia Hypertension Iron deficiency anemia Multiple sclerosis (HCC) Neuropathic pain Legs>arms from MS REBECCA (obstructive sleep apnea) on CPAP Pacemaker Pulmonary embolism (HCC) 07/2013 during hospitalization for [place] Vitamin D deficiency PAST SURGICAL HISTORY Procedure Laterality Date APPENDECTOMY BIVENTICULAR PACEMAKER INSERTION 09/05/2014 [employer] CABG (2) VEIN GRAFTS & ARTERIAL GRAFT(S 07/22/2013 THURMAN to LAD and Dx CARPAL TUNNEL COLONOSCOPY 08/01/2011 5mm rectal polyp COLONOSCOPY 12/05/2015 rectal polyp (adenoma) and diverticulosis CYSTOSCOPY 09/21/2018 EGD 07/17/2011 sliding hiatal hernia EGD 11/19/2015 Dr. Lema- HEART CATHETERIZATION 01/29/2016 HEART CATHETERIZATION 07/21/2013 The patient was advised a cardiothoracic consultation for coronary artery bypass surgery. Mid and distal LAD has severe disease. This is not suitable for percutaneous intervention and it is a bifurcation lesion. 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 Thiago Verdugo REMV CATARACT EXTRACAP,INSERT LENS Left 04/16/2017 Dr. Das ROTATOR CUFF REPAIR Right TOTAL ABDOM HYSTERECTOMY 1983 VENA CAVA FILTER INSERTION 08/16/2013 FAMILY HISTORY Problem Relation Age of Onset Diabetes Mother Coronary Artery Disease Mother NE's Cancer Father Heart Sister NE's, valve replaced Stroke Sister Ovarian cancer Sister Multiple Sclerosis Sister Hypertension Sister Coronary Artery Disease Brother 2 brothers CABG Aneurysm Brother Calcium Disorder No Family History Parathyroid Disease No Family History Osteoporosis No Family History ALLERGIES Allergen Reactions Glatiramer Rash, Itching Social History Tobacco Use Smoking status: Former Current packs/day: 1.00 Average packs/day: 1 pack/day for 20.0 years (20.0 ttl pk-yrs) Types: Cigarettes Passive exposure: Past Smokeless tobacco: Never Tobacco comments: Quit around 1995 Vaping Use Vaping status: Never Used Substance Use Topics Alcohol use: Not Currently Comment: occ Drug use: Never Current Outpatient Medications Medication Sig DULERA 200-5 mcg/actuation inhaler Inhale 1 puff as instructed two times a day. SYMBICORT 160-4.5 mcg/actuation inhaler Inhale 2 puffs as instructed two times a day as needed. esomeprazole (NEXIUM) 40 mg capsule Take 1 capsule by mouth daily before breakfast. 1/2 hr before meal. spironolactone (ALDACTONE) 25 mg tablet Take 1 tablet by mouth once daily. fenofibrate nanocrystallized (TRICOR) 145 mg tablet Take 1 tablet by mouth once daily. losartan (COZAAR) 50 mg tablet Take 1 tablet by mouth once daily. carvedilol (COREG) 25 mg tablet Take 0.5 tablets by mouth two times a day. apixaban (ELIQUIS) 5 mg tab(s) Take 1 tablet by mouth two times a day. pravastatin (PRAVACHOL) 40 mg tablet Take 1 tablet by mouth daily at bedtime. magnesium oxide (MAGOX) 400 mg (241.3 mg magnesium) tablet Take 1 tablet by mouth two times a day. DULoxetine (CYMBALTA) 60 mg capsule Take 60 mg by mouth two times a day. VUMERITY 231 mg capsule, delayed release Take 462 mg by mouth two times a day. Dr. Clemente dimethyl fumarate (TECFIDERA) [address] Take 1 capsule by mouth twice daily. gabapentin (NEURONTIN) 800 mg tablet Take 800 mg by mouth three times a day. ALBUTEROL SULFATE HFA INHALATION Inhale 2 Puffs as instructed every 4 hours as needed. baclofen (LIORESAL) 20 mg tablet Take by [...] 325 mg by mouth daily with breakfast. ergocalciferol 50,000 unit capsule (VITAMIN D2, DRISDOL) TAKE 1 CAPSULE BY MOUTH ONE TIME A WEEK. (Patient not taking: Reported on 09/29/2024) No current facility-administered medications for this visit. Review of Systems 10 point ROS was reviewed and negative unless indicated in the HPI Physical Exam: BP: 152/96 Pulse: 87 Resp: 21 SpO2: 95 % Body mass index is 43.71 kg/m . General: Comfortable, no obvious distress, using walker for ambulation Eyes: Sclera anicteric, no pallor Thyroid: Thyroid is normal in size and texture. No nodules palpated CV: Regular rhythm, normal rate. Resp: unlabored breathing on room air Skin: No rashes, lesions, or subcutaneous nodules, no striae Psych: Alert and orientated x 3. Extremities: No peripheral edema, no tenderness, no tremors, has a brace on right leg Neuro: Moves all four extremities. No focal deficits on limited exam. LABS: Latest Reference Range & Units 10/19/12 08:51 05/16/13 09:38 03/20/14 10:49 09/14/15 09:15 11/02/15 10:10 06/15/17 11:16 10/13/17 14:47 04/08/18 10:56 04/04/19 10:11 04/02/20 08:54 08/14/20 10:24 08/29/20 11:09 08/29/20 12:11 08/30/20 06:12 10/01/20 08:36 07/29/21 08:30 08/27/22 08:13 04/14/23 07:46 07/28/23 08:49 02/09/24 11:58 Sodium 136 - 144 mmol/L 141 143 139 138 140 137 143 134 (L) 132 (L) 142 141 143 141 142 144 138 140 141 142 136 Potassium 3.7 - 5.1 mmol/L 4.0 4.1 4.8 4.3 4.8 4.5 4.2 4.2 4.8 3.8 3.9 3.8 3.7 4.1 4.4 4.6 4.5 4.5 4.6 4.5 Chloride 98 - 107 mmol/L 107 108 104 102 102 102 105 99 97 104 107 (H) 110 (H) 107 108 (H) 105 105 105 107 (H) 100 CO2 22 - 30 mmol/L 23 24 23 24 25 24 25 24 21 (L) 31 (H) 24 27.0 26.0 23 17 (L) 26 26 22 24 BUN 7 - 21 mg/dL 15 16 15 20 22 13 23 (H) 20 14 27 (H) 21 24 22 13 22 (H) 21 17 14 15 BUN/CREATININE RATIO 15 - 24 31 (H) 31 (H) Creatinine 0.58 - 0.96 mg/dL 0.70 0.75 0.82 1.15 1.18 0.88 0.91 0.88 0.77 0.83 0.81 0.77 0.72 0.75 0.71 0.74 0.76 0.72 0.66 Glucose 74 - 99 mg/dL 83 72 83 104 (H) 99 69 (L) 85 92 75 67 (L) 129 (H) 121 (H) 95 121 (H) 107 (H) 79 109 (H) 101 (H) 77 Protein, Total 6.3 - 8.0 g/dL 7.4 7.6 7.4 7.9 7.1 7.0 7.0 5.9 (L) 6.5 7.4 7.7 6.7 6.8 7.1 6.8 Calcium 8.5 - 10.2 mg/dL 10.0 10.5 10.3 10.4 11.0 (H) 10.4 (H) 10.5 (H) 10.0 10.5 (H) 10.5 (H) 10.8 (H) 11.0 (H) 10.7 (H) 11.1 (H) 11.1 (H) 11.2 (H) 10.8 (H) 11.3 (H) 11.7 (H) Ionized Calcium 1.08 - 1.30 mmol/L 1.38 (H) 1.66 (H) Normalized Calcium 1.08 - 1.30 mmol/L 1.56 (H) Magnesium 1.6 - 2.6 MG/DL 2.1 Albumin 3.9 - 4.9 g/dL 4.2 4.2 4.0 4.3 4.1 3.8 (L) 4.0 3.7 (L) 3.5 4.2 4.4 4.1 4.0 4.2 4.5 Bilirubin, Total 0.2 - 1.3 mg/dL 0.2 0.2 0.2 0.2 0.2 0.2 0.3 0.4 0.20 0.2 0.2 0.3 0.5 <0.2 (L) 0.4 Alkaline Phosphatase 34 - 123 U/L 76 92 80 45 47 56 50 53 75 66 65 68 77 86 85 ALT 7 - 38 U/L 11 16 15 26 17 20 23 61 (H) 32 28 30 26 29 26 29 AST 13 - 35 U/L 19 16 20 28 22 20 22 37 (H) 23 25 27 30 18 22 21 Anion Gap 8 - 15 mmol/L 11 11 12 12 13 11 13 11 14 7 (L) 10 6 9 13 16 9 10 13 12 GLOBULIN 2.2 - 4.2 GM/DL 3.0 eGFR- >60 >60 >60 57 55 >60 >60 >60 >60 >60 >60 Greater than 60 Greater than 60 >60 eGFR-All Other Races . >60 >60 >60 47 46 >60 >60 >60 >60 >60 >60 >60 eGFR >=60 mL/min/1.73m 90 86 82 88 92 Estimated GFR Greater than 60 Greater than 60 (L): Data is abnormally low (H): Data is abnormally high Latest Reference Range & Units 10/19/12 08:51 05/16/13 09:38 03/20/14 10:49 11/02/15 10:10 04/08/18 10:56 04/04/19 10:11 04/02/20 08:54 08/30/20 06:12 02/09/24 11:58 TSH 0.358 - 3.740 UIU/ML 3.976 (H) PTH, Intact 15 - 65 pg/mL 71 (H) Vitamin D 25 Hydroxy 31.0 - 80.0 ng/mL 30.5 (L) 30.0 (L) 25.1 (L) 32.7 29.3 (L) 28.1 (L) 29.1 (L) (H): Data is abnormally high (L): Data is abnormally low Latest Ref Rng 03/28/2024 08/22/2024 09/23/2024 Protein, Total 6.3 - 8.0 g/dL 6.4 7.1 7.2 Albumin 3.9 - 4.9 g/dL 4.3 4.5 4.4 Calcium 8.5 - 10.2 mg/dL 11.4 (H) 11.5 (H) 11.9 (H) Bilirubin, Total 0.2 - 1.3 mg/dL 0.3 0.2 Alkaline Phosphatase 34 - 123 U/L 82 91 AST 13 - 35 U/L 17 23 ALT 7 - 38 U/L 25 29 Glucose 74 - 99 mg/dL 121 (H) 116 (H) BUN 7 - 21 mg/dL 20 20 Creatinine 0.58 - 0.96 mg/dL 0.70 0.62 Sodium 136 - 144 mmol/L 140 141 Potassium 3.7 - 5.1 mmol/L 4.2 4.6 Chloride 98 - 107 mmol/L 105 105 CO2 22 - 30 mmol/L 25 23 Anion Gap 8 - 15 mmol/L 10 13 eGFR >=60 mL/min/1.73m 90 93 Albumin 3.43 - 5.41 g/dL 3.95 Alpha 1 Globulin 0.18 - 0.43 g/dL 0.25 Alpha 2 Globulin 0.42 - 0.98 g/dL 0.75 Beta Globulin 0.61 - 1.17 g/dL 0.75 Gamma Globulin 0.53 - 1.51 g/dL 0.69 Interpretation (Prot Electro) No definitive M protein is identified on protein electrophoresis. No definitive M protein is identified on protein electrophoresis. M-Protein Location -- M-Protein Concentration <=0.00 g/dL 0.00 SPE Staff Review Reviewed by Tiffani Michele M.D., Ph.D Calcium, 24 Hr Urine 100.0 - 300.0 mg/24 hr 259.3 Period hr 24 Period hr 24 Period hr 24 Urine Volume 24 hour mL 1,525 Urine Volume 24 hour mL 1,525 Urine Volume 24 hour mL 1,525 Sodium, 24 hr Urine 40 - 220 mmol/24 hr 104 Creatinine 24 hr Ur 0.800 - 1.800 g/24 hr 0.959 Normalized Calcium 1.08 - 1.30 mmol/L 1.55 (H) 1.54 (H) Ionized Calcium 1.08 - 1.30 mmol/L 1.56 (H) 1.58 (H) Vitamin D 25 Hydroxy 31.0 - 80.0 ng/mL 12.7 (L) 29.6 (L) TSH 0.270 - 4.200 mIU/L 2.970 Magnesium 1.7 - 2.3 mg/dL 2.3 2.1 Phosphorus 2.7 - 4.8 mg/dL 2.7 2.4 (L) PTH, Intact 15 - 65 pg/mL 90 (H) 69 (H) Alk Phosphatase, Bone ug/L 16.5 Legend: (H) High (L) Low DXA: 11/02/24: RESULTS: Lumbar Spine (L1, L2, L3, L4): Total BMD: 1.245 g/cm2, T-score: 0.5 , Z-score: 1.1 Right Femoral Neck: 0.680 g/cm2 , T-score -2.6, Z-score -1.4 Right Total Hip: 0.780 g/cm2 , T-score -1.8, Z-score -0.9 Left Femoral Neck: 0.717 g/cm2 , T-score -2.3, Z-score -1.1 Left Total Hip: 0.764 g/cm2 , T-score -1.9 , Z-score -1.0 Left Forearm, Distal 1/3 of Radius: 0.639 g/cm2 , T-score -2.8 , Z-score -0.5 No comparison data - the patient has not had a previous bone density in the [facility] or the previous bone density was performed on a different DXA machine (new, updated model or different location) within the [facility]. VERTEBRAL FRACTURE ASSESSMENT Not performed. TRABECULAR BONE ASSESSMENT TBS not performed: not ordered IMPRESSION: THE LOWEST T-SCORE IS -2.8 IN THE LEFT FOREARM 1) DIAGNOSIS (based on BMD alone): OSTEOPOROSIS 2) FRACTURE RISK ( Based on FRAX) 10-year absolute fracture risk: - major osteoporotic fracture = 14.4 % - hip fracture = 4.3 % Assessment & Plan: (E83.52) Hypercalcemia Elevated PTH She has had hypercalcemia atleast since 2020 We reviewed the current laboratory tests are consistent with a diagnosis of primary hyperparathyroidism. We discussed this condition in detail, its natural course including potential complications and indications for treatment. Her surgical indications include high calcium with highest calcium being 11.7 mg/dl. 24 hr urine test also reveals hypercalcuria They preferred against surgery on last visit We discussed about medical management of complications including hypercalcuria, and osteoporosis. I reviewed osteoporosis treatment might work the best currently as the diuretic for hypercalcuria might worsen hypercalcemia DXA scan done and indicates osteoporosis. I reviewed treatment of osteoporosis with bisphosphonates or prolia. They prefer against treatment and would like to follow conservative management Advised to continue to take 1000 units OTC for Vitamin D3 along with dietary calcium. Advised against calcium supplements Weight bearing exercise encouraged as much as possible, she reports she cannot do more than 5 mins-10 mins of walking . Recommended to avoid falls, and heavy lifting Will monitor labs in 1 year In the interim, if any labs significantly abnormal or complications/consequences of PHPT seen by PCP, may consider revisiting treatment options again Plan: 1. Primary hyperparathyroidism (HCC) (Primary) 2. Hypercalcemia 3. Vitamin D deficiency - COMPREHENSIVE METABOLIC PANEL; Future - VITAMIN D 25 HYDROXY; Future - PTH INTACT; Future - MAGNESIUM; Future - PHOSPHORUS INORGANIC; Future - ALK PHOS BONE SPEC; Future - CALCIUM, IONIZED; Future Follow up in 1 year Narcisa Lomeli MD Endocrinology Associate Staff [facility] Endocrinology and Metabolism [place] [phone] Medical Decision Making: Problems: Moderate: New problem with uncertain prognosis Data: Unique test result(s) reviewed: 3+ Unique test(s) ordered: 3+ Medical Decision Making Level: 4 - Moderate documented in this encounter [facility] 11-02-2024 History of Present illness Narrative Radiology Service Progress Note PATIENT NAME: Jenni Albright DATE OF SERVICE: November 02, 2024 TIME: 2:45 PM PATIENT IDENTITY VERIFICATION COMPLETED USING TWO (2) IDENTIFIERS: Name and Date of confirmed by patient verbally. FALL SCREENING: Has the patient had 2 falls in the last year or 1 fall with injury or currently using an Ambulatory Assistive Device (Walker, Cane, Wheelchair, Crutches, etc.)? Yes, Patient High Risk for Falls What interventions were put in place to prevent falls during this visit? Instructed Patient to Call for Help if Needed, Offered Assistance with Transfers/Clothing, and Increased Observations by Caregivers PATIENT GENDER DATA: Assigned female at . status: : No status: NO. PATIENT RELEVANT IMPLANT DATA REVIEWED: Yes PATIENT PRESENTS WITH AN IMPLANTABLE OR ATTACHED CONTROL DIRECTOR: No RADIOLOGY DEPARTMENT: Bone Density PERIPHERAL IV DATA: Not applicable SIGNED BY: RT Alka(R) November 02, 2024 2:45 PM documented in this encounter [facility] 11-02-2024 Note HNO ID: [id number] Author: MAGGIE BILLS RT(R) Service: Radiology Author Type: Technologist Type: Progress Notes Filed: 11/02/2024 14:46 Note Text: Radiology Service Progress Note PATIENT NAME: Jenni Albright DATE OF SERVICE: November 02, 2024 TIME: 2:45 PM PATIENT IDENTITY VERIFICATION COMPLETED USING TWO (2) IDENTIFIERS: Name and Date of confirmed by patient verbally. FALL SCREENING: Has the patient had 2 falls in the last year or 1 fall with injury or currently using an Ambulatory Assistive Device (Walker, Cane, Wheelchair, Crutches, etc.)? Yes, Patient High Risk for Falls What interventions were put in place to prevent falls during this visit? Instructed Patient to Call for Help if Needed, Offered Assistance with Transfers/Clothing, and Increased Observations by Caregivers PATIENT GENDER DATA: Assigned female at . status: : No status: NO. PATIENT RELEVANT IMPLANT DATA REVIEWED: Yes PATIENT PRESENTS WITH AN IMPLANTABLE OR ATTACHED CONTROL DIRECTOR: No RADIOLOGY DEPARTMENT: Bone Density PERIPHERAL IV DATA: Not applicable SIGNED BY: RT Alka(R) November 02, 2024 2:45 PM [facility] 09-29-2024 Instructions Narcisa Lomeli MD - 09/29/2024 9:51 AM EDT BONE MINERAL DENSITY PATIENT INSTRUCTIONS ======= Bone mineral density testing measures the amount of calcium in certain parts of your bones. This information determines how strong your bones are. The test is used to detect osteoporosis, a disease in which the bone's mineral content and density are low, increasing a person's risk of fractures. The lumbar spine (lower back) and the hip are the skeletal sites usually examined. For the test, remember that: 1. You cannot take this test if you are . 2. Eat a normal diet on the day of the test. 3. Take your medications as you normally would. 4. DO NOT take calcium supplements (such as Tums) for 24 hours before the test. 5. On the day of the test, leave valuables (jewelry or credit cards) at home. 6. The test should be performed prior to oral, rectal or IV contrast studies, or at least 7 days after any of these studies. For the test, you may be asked to wear a hospital gown. You will lie on your back, on a padded table, in a comfortable position. Generally, you can resume your usual activities immediately. Please do DXA scan before next visit Continue Vitamin D supplements as is, as well as calcium in diet as instructed previously Weight bearing exercise encouraged as much as possible Avoid falls, and heavy lifting BONE MINERAL DENSITY PATIENT INSTRUCTIONS ======= Bone mineral density testing measures the amount of calcium in certain parts of your bones. This information determines how strong your bones are. The test is used to detect osteoporosis, a disease in which the bone's mineral content and density are low, increasing a person's risk of fractures. The lumbar spine (lower back) and the hip are the skeletal sites usually examined. For the test, remember that: 1. You cannot take this test if you are . 2. Eat a normal diet on the day of the test. 3. Take your medications as you normally would. 4. DO NOT take calcium supplements (such as Tums) for 24 hours before the test. 5. On the day of the test, leave valuables (jewelry or credit cards) at home. 6. The test should be performed prior to oral, rectal or IV contrast studies, or at least 7 days after any of these studies. For the test, you may be asked to wear a hospital gown. You will lie on your back, on a padded table, in a comfortable position. Generally, you can resume your usual activities immediately. documented in this encounter [facility] 09-29-2024 Note HNO ID: [id number] Author: NARCISA LOMELI MD Service: ? Author Type: Physician Type: Progress Notes Filed: 09/29/2024 18:09 Note Text: Endocrinology and Metabolism [place] Follow up note NAME: Jenni Albright is a 73 year old old female PCP: Edmundo Cruz MD Requesting Provider: Deion Russell APRN. 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 She is accompanied by her Initial/last visit 03/28/2024 From prior documentation, with updates today She has had high calcium for over 3 years, but reports she was not aware of this Has a hx of MS Personal history of kidney stones: no Personal history of fractures: None Family history of osteoporosis: no Height loss: unknown Weight <127 lbs: No Prior radiation to the neck: no Personal history of thyroid disease: no Family history of calcium issues, thyroid or parathyroid disease: no Calcium Intake: Patient eats ~1 serving of calcium/day- 1 yogurt cup every morning, started drinking milk 1 glass a day, some times drinks orange juice when it is on sale Patient takes multivitamins, but no separate calcium supplements or tums Vitamin D Intake: I stared her on 50,000 units of Vitamin d which she has not completed course for yet No recent or prolonged steroid use Smoking: Ex-smoker- remote hx Alcohol: occasionally Exercise: no regular exercise program History of falls: reports her legs give out sometimes due to MS, and has falls occasionally Menopause at age: 40s, she had partial hysterectomy due to large tumor on the uterus, surgical pathology was benign HRT: No No hx of cancer or radiation therapy Denied any steroid use, use of lithium or HCTZ in the past Has constipation for several years, and this is baseline for her Denied any symptoms at this time include anorexia, N/V, polyuria, polydipsia, blood in urine, bone pains She is presenting today after 24 hr urine labs for hypercalcemia 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 11/19/2015 BBB (bundle branch block) CAD (coronary artery disease) 07/2013 non-STMI/CABG CHB (complete heart block) (HCC) Congestive heart failure (HCC) GERD (gastroesophageal reflux disease) hiatal hernia History of DVT (deep vein thrombosis) 09/14/2015 History of rectal polypectomy 07/2011 Hyperlipidemia Hypertension Iron deficiency anemia Multiple sclerosis (HCC) Neuropathic pain Legs>arms from MS REBECCA (obstructive sleep apnea) on CPAP Pacemaker Pulmonary embolism (HCC) 07/2013 during hospitalization for [place] Vitamin D deficiency PAST SURGICAL HISTORY Procedure Laterality Date APPENDECTOMY BIVENTICULAR PACEMAKER INSERTION 09/05/2014 [employer] CABG (2) VEIN GRAFTS AND ARTERIAL GRAFT(S 07/22/2013 THURMAN to LAD and Dx CARPAL TUNNEL COLONOSCOPY 08/01/2011 5mm rectal polyp COLONOSCOPY 12/05/2015 rectal polyp (adenoma) and diverticulosis CYSTOSCOPY 09/21/2018 EGD 07/17/2011 sliding hiatal hernia EGD 11/19/2015 Dr. Lema- HEART CATHETERIZATION 01/29/2016 HEART CATHETERIZATION 07/21/2013 The patient was advised a cardiothoracic consultation for coronary artery bypass surgery. Mid and distal LAD has severe disease. This is not suitable for percutaneous intervention and it is a bifurcation lesion. 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 Thiago Verdugo REMV CATARACT EXTRACAP,INSERT LENS Left 04/16/2017 Dr. Das ROTATOR CUFF REPAIR Right TOTAL ABDOM HYSTERECTOMY 1983 VENA CAVA FILTER INSERTION 08/16/2013 FAMILY HISTORY Problem Relation Age of Onset Diabetes Mother Coronary Artery Disease Mother NE's Cancer Father Heart Sister NE's, valve replaced Stroke Sister Ovarian cancer Sister Multiple Sclerosis Sister Hypertension Sister Coronary Artery Disease Brother 2 brothers CABG Aneurysm Brother Calcium Disorder No Family History Parathyroid Disease No Family History Osteoporosis No Family History ALLERGIES Allergen Reactions Glatiramer Rash, Itching Social History Tobacco Use Smoking status: Former Current packs/day: 1.00 Average packs/day: 1 pack/day for 20.0 years (20.0 ttl pk-yrs) Types: Cigarettes Passive exposure: Past Smokeless tobacco: Never Tobacco comments: Quit around 1995 Vaping Use Vaping status: Never Used Substance Use Topics Alcohol use: Not Currently Comment: occ Drug use: Never Current Outpatient Medications Medication Sig DULERA 200-5 mcg/actuation inhaler Inhale 1 puff as instructed two times a day. SYMBICORT 160-4.5 mcg/actuation inhaler Inhale 2 puffs as instructed two times a day as needed. esomeprazole (NEXIUM) 40 mg capsule Take 1 capsule by mouth daily before breakfast. 1/2 hr before meal. spi (more content not included)... [facility] 09-29-2024 History of Present illness Narrative Endocrinology and Metabolism [place] Follow up note NAME: Jenni Albrigth is a 73 year old old female PCP: Edmundo Cruz MD Requesting Provider: Deion Russell APRN. CNP Chief Complaint: Hypercalcemia, elevated PTH History of Present Illness: Jenni Albright is a 73 year old old female presenting with hypercalcemia. She is accompanied by her Initial/last visit 03/28/2024 From prior documentation, with updates today She has had high calcium for over 3 years, but reports she was not aware of this Has a hx of MS Personal history of kidney stones: no Personal history of fractures: None Family history of osteoporosis: no Height loss: unknown Weight <127 lbs: No Prior radiation to the neck: no Personal history of thyroid disease: no Family history of calcium issues, thyroid or parathyroid disease: no Calcium Intake: Patient eats ~1 serving of calcium/day- 1 yogurt cup every morning, started drinking milk 1 glass a day, some times drinks orange juice when it is on sale Patient takes multivitamins, but no separate calcium supplements or tums Vitamin D Intake: I stared her on 50,000 units of Vitamin d which she has not completed course for yet No recent or prolonged steroid use Smoking: Ex-smoker- remote hx Alcohol: occasionally Exercise: no regular exercise program History of falls: reports her legs give out sometimes due to MS, and has falls occasionally Menopause at age: 40s, she had partial hysterectomy due to large tumor on the uterus, surgical pathology was benign HRT: No No hx of cancer or radiation therapy Denied any steroid use, use of lithium or HCTZ in the past Has constipation for several years, and this is baseline for her Denied any symptoms at this time include anorexia, N/V, polyuria, polydipsia, blood in urine, bone pains She is presenting today after 24 hr urine labs for hypercalcemia 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 11/19/2015 BBB (bundle branch block) CAD (coronary artery disease) 07/2013 non-STMI/CABG CHB (complete heart block) (HCC) Congestive heart failure (HCC) GERD (gastroesophageal reflux disease) hiatal hernia History of DVT (deep vein thrombosis) 09/14/2015 History of rectal polypectomy 07/2011 Hyperlipidemia Hypertension Iron deficiency anemia Multiple sclerosis (HCC) Neuropathic pain Legs>arms from MS REBECCA (obstructive sleep apnea) on CPAP Pacemaker Pulmonary embolism (HCC) 07/2013 during hospitalization for [place] Vitamin D deficiency PAST SURGICAL HISTORY Procedure Laterality Date APPENDECTOMY BIVENTICULAR PACEMAKER INSERTION 09/05/2014 [employer] CABG (2) VEIN GRAFTS & ARTERIAL GRAFT(S 07/22/2013 THURMAN to LAD and Dx CARPAL TUNNEL COLONOSCOPY 08/01/2011 5mm rectal polyp COLONOSCOPY 12/05/2015 rectal polyp (adenoma) and diverticulosis CYSTOSCOPY 09/21/2018 EGD 07/17/2011 sliding hiatal hernia EGD 11/19/2015 Dr. Lema- HEART CATHETERIZATION 01/29/2016 HEART CATHETERIZATION 07/21/2013 The patient was advised a cardiothoracic consultation for coronary artery bypass surgery. Mid and distal LAD has severe disease. This is not suitable for percutaneous intervention and it is a bifurcation lesion. 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 Thiago Verdugo REMV CATARACT EXTRACAP,INSERT LENS Left 04/16/2017 Dr. Das ROTATOR CUFF REPAIR Right TOTAL ABDOM HYSTERECTOMY 1983 VENA CAVA FILTER INSERTION 08/16/2013 FAMILY HISTORY Problem Relation Age of Onset Diabetes Mother Coronary Artery Disease Mother NE's Cancer Father Heart Sister NE's, valve replaced Stroke Sister Ovarian cancer Sister Multiple Sclerosis Sister Hypertension Sister Coronary Artery Disease Brother 2 brothers CABG Aneurysm Brother Calcium Disorder No Family History Parathyroid Disease No Family History Osteoporosis No Family History ALLERGIES Allergen Reactions Glatiramer Rash, Itching Social History Tobacco Use Smoking status: Former Current packs/day: 1.00 Average packs/day: 1 pack/day for 20.0 years (20.0 ttl pk-yrs) Types: Cigarettes Passive exposure: Past Smokeless tobacco: Never Tobacco comments: Quit around 1995 Vaping Use Vaping status: Never Used Substance Use Topics Alcohol use: Not Currently Comment: occ Drug use: Never Current Outpatient Medications Medication Sig DULERA 200-5 mcg/actuation inhaler Inhale 1 puff as instructed two times a day. SYMBICORT 160-4.5 mcg/actuation inhaler Inhale 2 puffs as instructed two times a day as needed. esomeprazole (NEXIUM) 40 mg capsule Take 1 capsule by mouth daily before breakfast. 1/2 hr before meal. spironolactone (ALDACTONE) 25 mg tablet Take 1 tablet by mouth once daily. fenofibrate nanocrystallized (TRICOR) 145 mg tablet Take 1 tablet by mouth once daily. losartan (COZAAR) 50 mg tablet Take 1 tablet by mouth once daily. carvedilol (COREG) 25 mg tablet Take 0.5 tablets by mouth two times a day. apixaban (ELIQUIS) 5 mg tab(s) Take 1 tablet by mouth two times a day. pravastatin (PRAVACHOL) 40 mg tablet Take 1 tablet by mouth daily at bedtime. magnesium oxide (MAGOX) 400 mg (241.3 mg magnesium) tablet Take 1 tablet by mouth two times a day. DULoxetine (CYMBALTA) 60 mg capsule Take 60 mg by mouth two times a day. VUMERITY 231 mg capsule, delayed release Take 462 mg by mouth two times a day. Dr. Clemente dimethyl fumarate (TECFIDERA) [address] Take 1 capsule by mouth twice daily. gabapentin (NEURONTIN) 800 mg tablet Take 800 mg by mouth three times a day. ALBUTEROL SULFATE HFA INHALATION Inhale 2 Puffs as instructed every 4 hours as needed. baclofen (LIORESAL) 20 mg tablet Take by [...] 325 mg by mouth daily with breakfast. ergocalciferol 50,000 unit capsule (VITAMIN D2, DRISDOL) TAKE 1 CAPSULE BY MOUTH ONE TIME A WEEK. (Patient not taking: Reported on 09/29/2024) No current facility-administered medications for this visit. Review of Systems 10 point ROS was reviewed and negative unless indicated in the HPI Physical Exam: BP: 136/80 Temp: 36.6 C (97.9 F) Temp src: Temporal Artery Pulse: 80 Resp: 16 SpO2: 96 % Body mass index is 41.88 kg/m . General: Comfortable, no obvious distress, using walker for ambulation Eyes: Sclera anicteric, no pallor Thyroid: Thyroid is normal in size and texture. No nodules palpated CV: Regular rhythm, normal rate. Resp: unlabored breathing on room air Skin: No rashes, lesions, or subcutaneous nodules, no striae Psych: Alert and orientated x 3. Extremities: No peripheral edema, no tenderness, no tremors Neuro: Moves all four extremities. No focal deficits on limited exam. LABS: Latest Reference Range & Units 10/19/12 08:51 05/16/13 09:38 03/20/14 10:49 09/14/15 09:15 11/02/15 10:10 06/15/17 11:16 10/13/17 14:47 04/08/18 10:56 04/04/19 10:11 04/02/20 08:54 08/14/20 10:24 08/29/20 11:09 08/29/20 12:11 08/30/20 06:12 10/01/20 08:36 07/29/21 08:30 08/27/22 08:13 04/14/23 07:46 07/28/23 08:49 02/09/24 11:58 Sodium 136 - 144 mmol/L 141 143 139 138 140 137 143 134 (L) 132 (L) 142 141 143 141 142 144 138 140 141 142 136 Potassium 3.7 - 5.1 mmol/L 4.0 4.1 4.8 4.3 4.8 4.5 4.2 4.2 4.8 3.8 3.9 3.8 3.7 4.1 4.4 4.6 4.5 4.5 4.6 4.5 Chloride 98 - 107 mmol/L 107 108 104 102 102 102 105 99 97 104 107 (H) 110 (H) 107 108 (H) 105 105 105 107 (H) 100 CO2 22 - 30 mmol/L 23 24 23 24 25 24 25 24 21 (L) 31 (H) 24 27.0 26.0 23 17 (L) 26 26 22 24 BUN 7 - 21 mg/dL 15 16 15 20 22 13 23 (H) 20 14 27 (H) 21 24 22 13 22 (H) 21 17 14 15 BUN/CREATININE RATIO 15 - 24 31 (H) 31 (H) Creatinine 0.58 - 0.96 mg/dL 0.70 0.75 0.82 1.15 1.18 0.88 0.91 0.88 0.77 0.83 0.81 0.77 0.72 0.75 0.71 0.74 0.76 0.72 0.66 Glucose 74 - 99 mg/dL 83 72 83 104 (H) 99 69 (L) 85 92 75 67 (L) 129 (H) 121 (H) 95 121 (H) 107 (H) 79 109 (H) 101 (H) 77 Protein, Total 6.3 - 8.0 g/dL 7.4 7.6 7.4 7.9 7.1 7.0 7.0 5.9 (L) 6.5 7.4 7.7 6.7 6.8 7.1 6.8 Calcium 8.5 - 10.2 mg/dL 10.0 10.5 10.3 10.4 11.0 (H) 10.4 (H) 10.5 (H) 10.0 10.5 (H) 10.5 (H) 10.8 (H) 11.0 (H) 10.7 (H) 11.1 (H) 11.1 (H) 11.2 (H) 10.8 (H) 11.3 (H) 11.7 (H) Ionized Calcium 1.08 - 1.30 mmol/L 1.38 (H) 1.66 (H) Normalized Calcium 1.08 - 1.30 mmol/L 1.56 (H) Magnesium 1.6 - 2.6 MG/DL 2.1 Albumin 3.9 - 4.9 g/dL 4.2 4.2 4.0 4.3 4.1 3.8 (L) 4.0 3.7 (L) 3.5 4.2 4.4 4.1 4.0 4.2 4.5 Bilirubin, Total 0.2 - 1.3 mg/dL 0.2 0.2 0.2 0.2 0.2 0.2 0.3 0.4 0.20 0.2 0.2 0.3 0.5 <0.2 (L) 0.4 Alkaline Phosphatase 34 - 123 U/L 76 92 80 45 47 56 50 53 75 66 65 68 77 86 85 ALT 7 - 38 U/L 11 16 15 26 17 20 23 61 (H) 32 28 30 26 29 26 29 AST 13 - 35 U/L 19 16 20 28 22 20 22 37 (H) 23 25 27 30 18 22 21 Anion Gap 8 - 15 mmol/L 11 11 12 12 13 11 13 11 14 7 (L) 10 6 9 13 16 9 10 13 12 GLOBULIN 2.2 - 4.2 GM/DL 3.0 eGFR- >60 >60 >60 57 55 >60 >60 >60 >60 >60 >60 Greater than 60 Greater than 60 >60 eGFR-All Other Races . >60 >60 >60 47 46 >60 >60 >60 >60 >60 >60 >60 eGFR >=60 mL/min/1.73m 90 86 82 88 92 Estimated GFR Greater than 60 Greater than 60 (L): Data is abnormally low (H): Data is abnormally high Latest Reference Range & Units 10/19/12 08:51 05/16/13 09:38 03/20/14 10:49 11/02/15 10:10 04/08/18 10:56 04/04/19 10:11 04/02/20 08:54 08/30/20 06:12 02/09/24 11:58 TSH 0.358 - 3.740 UIU/ML 3.976 (H) PTH, Intact 15 - 65 pg/mL 71 (H) Vitamin D 25 Hydroxy 31.0 - 80.0 ng/mL 30.5 (L) 30.0 (L) 25.1 (L) 32.7 29.3 (L) 28.1 (L) 29.1 (L) (H): Data is abnormally high (L): Data is abnormally low Latest Ref Rng 03/28/2024 08/22/2024 09/23/2024 Protein, Total 6.3 - 8.0 g/dL 6.4 7.1 7.2 Albumin 3.9 - 4.9 g/dL 4.3 4.5 4.4 Calcium 8.5 - 10.2 mg/dL 11.4 (H) 11.5 (H) 11.9 (H) Bilirubin, Total 0.2 - 1.3 mg/dL 0.3 0.2 Alkaline Phosphatase 34 - 123 U/L 82 91 AST 13 - 35 U/L 17 23 ALT 7 - 38 U/L 25 29 Glucose 74 - 99 mg/dL 121 (H) 116 (H) BUN 7 - 21 mg/dL 20 20 Creatinine 0.58 - 0.96 mg/dL 0.70 0.62 Sodium 136 - 144 mmol/L 140 141 Potassium 3.7 - 5.1 mmol/L 4.2 4.6 Chloride 98 - 107 mmol/L 105 105 CO2 22 - 30 mmol/L 25 23 Anion Gap 8 - 15 mmol/L 10 13 eGFR >=60 mL/min/1.73m 90 93 Albumin 3.43 - 5.41 g/dL 3.95 Alpha 1 Globulin 0.18 - 0.43 g/dL 0.25 Alpha 2 Globulin 0.42 - 0.98 g/dL 0.75 Beta Globulin 0.61 - 1.17 g/dL 0.75 Gamma Globulin 0.53 - 1.51 g/dL 0.69 Interpretation (Prot Electro) No definitive M protein is identified on protein electrophoresis. No definitive M protein is identified on protein electrophoresis. M-Protein Location -- M-Protein Concentration <=0.00 g/dL 0.00 SPE Staff Review Reviewed by Tiffani Michele M.D., Ph.D Calcium, 24 Hr Urine 100.0 - 300.0 mg/24 hr 259.3 Period hr 24 Period hr 24 Period hr 24 Urine Volume 24 hour mL 1,525 Urine Volume 24 hour mL 1,525 Urine Volume 24 hour mL 1,525 Sodium, 24 hr Urine 40 - 220 mmol/24 hr 104 Creatinine 24 hr Ur 0.800 - 1.800 g/24 hr 0.959 Normalized Calcium 1.08 - 1.30 mmol/L 1.55 (H) 1.54 (H) Ionized Calcium 1.08 - 1.30 mmol/L 1.56 (H) 1.58 (H) Vitamin D 25 Hydroxy 31.0 - 80.0 ng/mL 12.7 (L) 29.6 (L) TSH 0.270 - 4.200 mIU/L 2.970 Magnesium 1.7 - 2.3 mg/dL 2.3 2.1 Phosphorus 2.7 - 4.8 mg/dL 2.7 2.4 (L) PTH, Intact 15 - 65 pg/mL 90 (H) 69 (H) Alk Phosphatase, Bone ug/L 16.5 Legend: (H) High (L) Low DXA: Not available Assessment & Plan: (E83.52) Hypercalcemia Elevated PTH She has had hypercalcemia atleast since 2020 We reviewed the current laboratory tests are consistent with a diagnosis of primary hyperparathyroidism. We discussed this condition in detail, its natural course including potential complications and indications for treatment. Her surgical indications include high calcium with highest calcium being 11.7 mg/dl. 24 hr urine test also reveals hypercalcuria Her advises her not to do surgery. So they do not prefer this currently We discussed about medical management of complications including hypercalcuria, and osteoporosis. I reviewed osteoporosis treatment might work the best currently as the diuretic for hypercalcuria might worsen hypercalcemia Advised doing DXA Scan of spine, hips, forearm to evaluate BMD- to treat accordingly She reports she has a pacemaker can cannot do scans. I reassured that this imaging should be fine Orders placed - no previous DXA scans seen in chart Advised to continue to take 1000 units OTC for Vitamin D3 along with dietary calcium. Advised against calcium supplements which she reports to have been taken. Likely worsening calcium due to this? Weight bearing exercise encouraged as much as possible, she reports she cannot do more than 5 mins-10 mins of walking . Recommended to avoid falls, and heavy lifting Plan: 1. Primary hyperparathyroidism (HCC) (Primary) 2. Hypercalcemia - DXA-AXIAL SKELETON WITH VFA; Future - BD DXA TRABECULAR BONE SCORE (TBS); Future - DXA-FOREARM SKELETON; Future Follow up in 1 month Narcisa Lomeli MD Endocrinology Associate Staff [facility] Endocrinology and Metabolism [place] [phone] Medical Decision Making: Problems: Moderate: 1+ chronic illnesses with change Data: Unique test result(s) reviewed: 3+ Unique test(s) ordered: 2 Risk: High: Decision on elective major surgery w/ risk factors Medical Decision Making Level: 4 - Moderate documented in this encounter [facility] 09-22-2024 Instructions Landon Jones APRN.CHILDB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 - 09/22/2024 9:45 AM EDT 1) Continue all medications as previously ordered 2) Follow a low cholesterol, low sodium diet 3) Follow up with Dr. Draper in January 4) Echocardiogram scheduled 5) Call office with any questions, concerns or change in condition documented in this encounter [facility] 09-22-2024 History of Present illness Narrative Images from the original note were not included. Heart, Vascular and Thoracic [place] Samara Palma Department of Cardiovascular Medicine [facility] General Cardiology OUTPATIENT VISIT 09/22/2024 ESTABLISHED PATIENT PRIMARY CARE PHYSICIAN: Edmundo Cruz [address] [place] [address] CHIEF COMPLAINT: 6 month follow up none HISTORY OF PRESENT ILLNESS: Jenni Albright is a 73 year old female patient of Dr De La Rosa and Dr. Draper (last seen by Dr Draper on 05/05/2024) with PMHx : coronary artery disease, status post CABG 07/22/13, hypertension, hypercholesterolemia, paroxysmal atrial fibrillation, nonsustained ventricular tachycardia, Biventricualr dual chamber pacemaker implant for CHB on 09/05/14, history of multiple sclerosis , GI bleed on Xarelto on August 2015, History of bladder stimulator implant. They are here today for 6 month follow up. At last visit with Dr. Draper on 05/05/24: Been well. No shortness of breath or chest pain. No dizziness and no syncope. No issues with the pacemaker. No orthopnea, no PND Uses CPAP for REBECCA. No bleeding issues currently. Uses LWF, no falls. Patient reports feeling good from a cardiac standpoint. Patient denies chest pain, palpitations, orthopnea, syncope, near-syncope, or edema. Patient does note shortness of breath, but nothing that is new or different. She notes she just saw her tick inspector recently and are working with a medication regimen. She notes the inhaler she was just placed on is helping slightly. Patient's pacemaker has a year battery life left and will be having a replacement in Fall of 2025. Cardiac medications reconciled today with patient and are as per medication list. Echo 08/06/2018: Please see scanned documents Is scheduled for a repeat echocardiogram 01/2025 Stress test 10/06/2016: Scanned documents Heart cath 02/11/2016: Scanned documents 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 11/19/2015 BBB (bundle branch block) CAD (coronary artery disease) 07/2013 non-STMI/CABG CHB (complete heart block) (HCC) Congestive heart failure (HCC) GERD (gastroesophageal reflux disease) hiatal hernia History of DVT (deep vein thrombosis) 09/14/2015 History of rectal polypectomy 07/2011 Hyperlipidemia Hypertension Iron deficiency anemia Multiple sclerosis (HCC) Neuropathic pain Legs>arms from MS REBECCA (obstructive sleep apnea) on CPAP Pacemaker Pulmonary embolism (HCC) 07/2013 during hospitalization for [place] Vitamin D deficiency PAST SURGICAL HISTORY: PAST SURGICAL HISTORY Procedure Laterality Date APPENDECTOMY BIVENTICULAR PACEMAKER INSERTION 09/05/2014 [employer] CABG (2) VEIN GRAFTS & ARTERIAL GRAFT(S 07/22/2013 THURMAN to LAD and Dx CARPAL TUNNEL COLONOSCOPY 08/01/2011 5mm rectal polyp COLONOSCOPY 12/05/2015 rectal polyp (adenoma) and diverticulosis CYSTOSCOPY 09/21/2018 EGD 07/17/2011 sliding hiatal hernia EGD 11/19/2015 Dr. Lema- HEART CATHETERIZATION 01/29/2016 HEART CATHETERIZATION 07/21/2013 The patient was advised a cardiothoracic consultation for coronary artery bypass surgery. Mid and distal LAD has severe disease. This is not suitable for percutaneous intervention and it is a bifurcation lesion. 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 Thiago Verdugo REMV CATARACT EXTRACAP,INSERT LENS Left 04/16/2017 Dr. Das ROTATOR CUFF REPAIR Right TOTAL ABDOM HYSTERECTOMY 1983 VENA CAVA FILTER INSERTION 08/16/2013 FAMILY HISTORY: FAMILY HISTORY Problem Relation Age of Onset Diabetes Mother Coronary Artery Disease Mother NE's Cancer Father Heart Sister NE's, valve replaced Stroke Sister Ovarian cancer Sister Multiple Sclerosis Sister Hypertension Sister Coronary Artery Disease Brother 2 brothers CABG Aneurysm Brother Calcium Disorder No Family History Parathyroid Disease No Family History Osteoporosis No Family History SOCIAL HISTORY: Social History Tobacco Use Smoking status: Former Current packs/day: 1.00 Average packs/day: 1 pack/day for 20.0 years (20.0 ttl pk-yrs) Types: Cigarettes Passive exposure: Past Smokeless tobacco: Never Tobacco comments: Quit around 1995 Vaping Use Vaping status: Never Used Substance Use Topics Alcohol use: Not Currently Comment: occ Drug use: Never ALLERGIES: Glatiramer CURRENT MEDICATIONS: Current Outpatient Medications Medication Sig DULERA 200-5 mcg/actuation inhaler Inhale 1 puff as instructed two times a day. SYMBICORT 160-4.5 mcg/actuation inhaler Inhale 2 puffs as instructed two times a day as needed. ergocalciferol 50,000 unit capsule (VITAMIN D2, DRISDOL) TAKE 1 CAPSULE BY MOUTH ONE TIME A WEEK. esomeprazole (NEXIUM) 40 mg capsule Take 1 capsule by mouth daily before breakfast. 1/2 hr before meal. spironolactone (ALDACTONE) 25 mg tablet Take 1 tablet by mouth once daily. fenofibrate nanocrystallized (TRICOR) 145 mg tablet Take 1 tablet by mouth once daily. losartan (COZAAR) 50 mg tablet Take 1 tablet by mouth once daily. carvedilol (COREG) 25 mg tablet Take 0.5 tablets by mouth two times a day. apixaban (ELIQUIS) 5 mg tab(s) Take 1 tablet by mouth two times a day. pravastatin (PRAVACHOL) 40 mg tablet Take 1 tablet by mouth daily at bedtime. magnesium oxide (MAGOX) 400 mg (241.3 mg magnesium) tablet Take 1 tablet by mouth two times a day. DULoxetine (CYMBALTA) 60 mg capsule Take 60 mg by mouth two times a day. VUMERITY 231 mg capsule, delayed release Take 462 mg by mouth two times a day. Dr. Clemente dimethyl fumarate (TECFIDERA) [address] Take 1 capsule by mouth twice daily. gabapentin (NEURONTIN) 800 mg tablet Take 800 mg by mouth three times a day. ALBUTEROL SULFATE HFA INHALATION Inhale 2 Puffs as instructed every 4 hours as needed. baclofen (LIORESAL) 20 mg tablet Take by [...] No current facility-administered medications for this visit. VITAL SIGNS: 09/22/24 0911 BP: 137/64 BP Site: Right Arm BP Position: Sitting BP Cuff Size: Regular Adult Pulse: 79 SpO2: 95% Weight: 104.1 kg (229 lb 9.6 oz) Height: 157.5 cm (5' 2") Last 3 Encounter BP Readings: Date: BP: 09/06/2024 128/82 05/05/2024 137/78 03/28/2024 124/82 Last 3 Encounter Pulse Readings: Date: Pulse: 09/06/2024 96 06/28/2024 82 05/05/2024 85 Last 3 Encounter Wt Readings: Date: Wt: 09/06/2024 104.5 kg (230 lb 6.1 oz) 06/28/2024 102.1 kg (225 lb) 05/05/2024 104.3 kg (230 lb) PHYSICAL EXAMINATION: Physical Exam Constitutional: Appearance: She is obese. HENT: Head: Normocephalic and atraumatic. Nose: Nose normal. Mouth/Throat: Mouth: Mucous membranes are moist. Eyes: Conjunctiva/sclera: Conjunctivae normal. Neck: Comments: Head/neck fine tremor noted Cardiovascular: Rate and Rhythm: Normal rate and regular rhythm. Pulses: Normal pulses. Heart sounds: Normal heart sounds. Pulmonary: Effort: Pulmonary effort is normal. Breath sounds: Normal breath sounds. Abdominal: General: Bowel sounds are normal. Musculoskeletal: Right lower leg: Edema (patient wears brace on right foot. mild 1+ non pitting edema noted R>L) present. Left lower leg: Edema (mild 1+ non pitting edema noted R>L) present. Comments: Uses rollator walker Skin: General: Skin is warm and dry. Capillary Refill: Capillary refill takes less than 2 seconds. Neurological: General: No focal deficit present. Mental Status: She is alert. LABS: Last A1C: 5.8 - 08/22/2024 TSH 2.970 03/28/2024 Triglycerides, Nonfasting 93 08/22/2024 HDL Cholesterol, Nonfasting 41 08/22/2024 LDL Cholesterol Calculated, Nonfasting 66 08/22/2024 Total Cholesterol, Nonfasting 125 08/22/2024 Magnesium Date Value Ref Range Status 08/22/2024 2.1 1.7 - 2.3 mg/dL Final Latest Ref Rng & Units 08/22/2024 03/28/2024 02/09/2024 BMP Glucose 74 - 99 mg/dL 121 77 BUN 7 - 21 mg/dL 20 15 Creatinine 0.58 - 0.96 mg/dL 0.70 0.66 Sodium 136 - 144 mmol/L 140 136 Potassium 3.7 - 5.1 mmol/L 4.2 4.5 Chloride 98 - 107 mmol/L 105 100 CO2 22 - 30 mmol/L 25 24 Anion Gap 8 - 15 mmol/L 10 12 Calcium 8.5 - 10.2 mg/dL 11.5 11.4 11.7 EGFR >=60 mL/min/1.73m 90 92 Hemoglobin Date Value 04/14/2023 12.8 g/dL 08/30/2020 11.7 G/DL Hematocrit (%) Date Value 04/14/2023 41.1 08/30/2020 37.7 WBC Date Value 04/14/2023 5.95 k/uL 08/30/2020 7.6 K/CUMM Platelet Count Date Value 04/14/2023 291 k/uL 08/30/2020 298 K/CU MM No results found for: "HSTROP", PBNP CARDIOVASCULAR MEDICINE TESTING: Device Check Today: Scanned into [employer] I have personally reviewed the Electrocardiogram, Echocardiogram, and Device Check. PLAN AND RECOMMENDATIONS: Coronary artery disease involving [place]om[place] indians[place] coronary artery of [place]ians[place] heart without angina pectoris Hyperlipidemia prior history of coronary artery disease with a status post bypass surgery 2013 Currently on ASA 81 mg Currently on pravastatin 40 mg Continue to follow a low cholesterol diet Cholesterol, Total Date Value 08/22/2024 125 mg/dL 02/09/2024 155 mg/dL 10/01/2020 147 mg/dL 08/30/2020 157 MG/dL HDL Cholesterol Date Value 08/22/2024 41 mg/dL 02/09/2024 35 mg/dL 10/01/2020 31 mg/dL 08/30/2020 29 MG/DL LDL Cholesterol, Calculated Date Value 08/22/2024 66 mg/dL 02/09/2024 84 mg/dL 10/01/2020 85 mg/dL 08/30/2020 83 MG/DL Triglyceride Date Value 08/22/2024 93 mg/dL 02/09/2024 178 mg/dL 10/01/2020 157 mg/dL 08/30/2020 222 MG/DL Complete heart block (HCC) Cardiac resynchronization therapy pacemaker ([facility] NURSE-P) in place PAF Device check done today No remarkable events Currently on eliquis 5 mg twice daily, no bleeding issues Patient wears CPAP nightly Hypertension Stable on medications-137/64 Continue to monitor blood pressures Follow a low sodium diet Some elements copied from Dr. De La Rosa, Dr. Draper , the elements have been updated and all reflect current decision making from today, 09/22/2024. I spent a total of 32 minutes today which included preparing to see the patient/chart review, [id number] patient care, obtaining/reviewing appropriate history, obtaining medically appropriate exam, counseling and educating patient/family, ordering/interpreting tests/procedures, managing medications, completing clinical documentation, and care coordination. Portions of this progress note been completed using dictation software, some mild spelling/grammar inconsistencies may exist. Landon Jones APRN CHILDB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 cc: Edmundo Cruz MD documented in this encounter [facility] 09-22-2024 Note HNO ID: [id number] Author: LANDON JONES APRN.CHILDB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 Service: ? Author Type: Nurse Practitioner Type: Progress Notes Filed: 09/22/2024 15:17 Note Text: Heart, Vascular and Thoracic [place] Samara Palma Department of Cardiovascular Medicine [facility] General Cardiology OUTPATIENT VISIT 09/22/2024 ESTABLISHED PATIENT PRIMARY CARE PHYSICIAN: Edmundo Cruz [address] [place] [address] CHIEF COMPLAINT: 6 month follow up none HISTORY OF PRESENT ILLNESS: Jenni Albright is a 73 year old female patient of Dr De La Rosa and Dr. Draper (last seen by Dr Draper on 05/05/2024) with PMHx : coronary artery disease, status post CABG 07/22/13, hypertension, hypercholesterolemia, paroxysmal atrial fibrillation, nonsustained ventricular tachycardia, Biventricualr dual chamber pacemaker implant for CHB on 09/05/14, history of multiple sclerosis , GI bleed on Xarelto on August 2015, History of bladder stimulator implant. They are here today for 6 month follow up. At last visit with Dr. Draper on 05/05/24: Been well. No shortness of breath or chest pain. No dizziness and no syncope. No issues with the pacemaker. No orthopnea, no PND Uses CPAP for REBECCA. No bleeding issues currently. Uses LWF, no falls. Patient reports feeling good from a cardiac standpoint. Patient denies chest pain, palpitations, orthopnea, syncope, near-syncope, or edema. Patient does note shortness of breath, but nothing that is new or different. She notes she just saw her tick inspector recently and are working with a medication regimen. She notes the inhaler she was just placed on is helping slightly. Patient's pacemaker has a year battery life left and will be having a replacement in fall. Cardiac medications reconciled today with patient and are as per medication list. Echo 08/06/2018: Please see scanned documents Is scheduled for a repeat echocardiogram 01/2025 Stress test 10/06/2016: Scanned documents Heart cath 02/11/2016: Scanned documents 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 11/19/2015 BBB (bundle branch block) CAD (coronary artery disease) 07/2013 non-STMI/CABG CHB (complete heart block) (HCC) Congestive heart failure (HCC) GERD (gastroesophageal reflux disease) hiatal hernia History of DVT (deep vein thrombosis) 09/14/2015 History of rectal polypectomy 07/2011 Hyperlipidemia Hypertension Iron deficiency anemia Multiple sclerosis (HCC) Neuropathic pain Legs>arms from MS REBECCA (obstructive sleep apnea) on CPAP Pacemaker Pulmonary embolism (HCC) 07/2013 during hospitalization for [place] Vitamin D deficiency PAST SURGICAL HISTORY: PAST SURGICAL HISTORY Procedure Laterality Date APPENDECTOMY BIVENTICULAR PACEMAKER INSERTION 09/05/2014 [employer] CABG (2) VEIN GRAFTS AND ARTERIAL GRAFT(S 07/22/2013 THURMAN to LAD and Dx CARPAL TUNNEL COLONOSCOPY 08/01/2011 5mm rectal polyp COLONOSCOPY 12/05/2015 rectal polyp (adenoma) and diverticulosis CYSTOSCOPY 09/21/2018 EGD 07/17/2011 sliding hiatal hernia EGD 11/19/2015 Dr. Lema- HEART CATHETERIZATION 01/29/2016 HEART CATHETERIZATION 07/21/2013 The patient was advised a cardiothoracic consultation for coronary artery bypass surgery. Mid and distal LAD has severe disease. This is not suitable for percutaneous intervention and it is a bifurcation lesion. 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 Thiago Verdugo REMV CATARACT EXTRACAP,INSERT LENS Left 04/16/2017 Dr. Das ROTATOR CUFF REPAIR Right TOTAL ABDOM HYSTERECTOMY 1983 [employer]NA CAVA FILTER INSERTION 08/16/2013 FAMILY HISTORY: FAMILY HISTORY Problem Relation Age of Onset Diabetes Mother Coronary Artery Disease Mother NE's Cancer Father Heart Sister NE's, valve replaced Stroke Sister Ovarian cancer Sister Multiple Sclerosis Sister Hypertension Sister Coronary Artery Disease Brother 2 brothers CABG Aneurysm Brother Calcium Disorder No Family History Parathyroid Disease No Family History Osteoporosis No Family History SOCIAL HISTORY: Social History Tobacco Use Smoking status: Former Current packs/day: 1.00 Average packs/day: 1 pack/day for 20.0 years (20.0 ttl pk-yrs) Types: Cigarettes Passive exposure: Past Smokeless tobacco: Never Tobacco comments: Quit around 1995 Vaping Use Vaping status: Never Used Substance Use Topics Alcohol use: Not Currently Comment: occ Drug use: Never ALLERGIES: Glatiramer CURRENT MEDICATIONS: Current Outpatient Medications Medication Sig DULERA 200-5 mcg/actuation inhaler Inhale 1 puff as instructed two times a day. SYMBICORT 160-4.5 mcg/actuation inhaler Inhale 2 puffs as instructed two times a day as needed. ergocalciferol 50,000 unit capsu (more content not included)... [facility] 09-09-2024 Telephone encounter Note OK to refill as ordered Edmundo Cruz MD [facility] 09-09-2024 Miscellaneous Notes OK to refill as ordered Edmundo Cruz MD Patient states she saw PCP yesterday and there was discussion about reordering her inhaler for her, but states there is no script at her pharmacy. Requesting refill of her Symbicort inhaler, if appropriate. Thank you. Charo Carpenter RN documented in this encounter [facility] 09-07-2024 Telephone encounter Note Patient states she saw PCP yesterday and there was discussion about reordering her inhaler for her, but states there is no script at her pharmacy. Requesting refill of her Symbicort inhaler, if appropriate. Thank you. Charo Carpenter RN [facility] 09-06-2024 History of Present illness Narrative Chief Complaint Patient presents with: 6 Month Exam HPI Jenni Albright is a 73 year old female who presents here today for 6 month follow up. Here with , [place]. Their grandson just graduated from [employer], he is going to be going to [employer] on football. Has an advanced directive. No bowel, Gi, or urinary issues. GERD: Sx controlled on Nexium 40 mg daily. HTN/CHF: Taking Coreg 25 mg half pill BID, Losartan 50 mg daily, Aldactone 25 mg daily. No chest pains, dizziness, or SOB. Follows with Cardio Dr. Draper. Denies checking BP at home. Has a pacemaker. PE & DVT: Taking Eliquis 5 mg BID. Follows with Dr. Armani Ingram for vitamin d deficiency. No longer taking vitamin D3 50,000 international unit(s) weekly. Has had elevated calcium and PTH. Lipid/CAD/glucose: Taking Pravastatin 40 mg daily and tricor 145 mg daily. Denies watching diet or exercising. MS: Taking Gabapentin 800 mg 1 pill TID, Tecfidera 240 mg BID and Vumerity 231 mg BID. Follows with Neuro Dr. Clemente. REBECCA & Asthma: Uses CPAP every night. Follows with salomon Berger. Is using Albuterol inhaler prn and Symbicort inhaler BID. Past medical history, appointments, medications, allergies reviewed. 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 11/19/2015 BBB (bundle branch block) CAD (coronary artery disease) 07/2013 non-STMI/CABG CHB (complete heart block) (HCC) Congestive heart failure (HCC) GERD (gastroesophageal reflux disease) hiatal hernia History of DVT (deep vein thrombosis) 09/14/2015 History of rectal polypectomy 07/2011 Hyperlipidemia Hypertension Iron deficiency anemia Multiple sclerosis (HCC) Neuropathic pain Legs>arms from MS REBECCA (obstructive sleep apnea) on CPAP Pacemaker Pulmonary embolism (HCC) 07/2013 during hospitalization for [place] Vitamin D deficiency Previous Surgical History PAST SURGICAL HISTORY Procedure Laterality Date APPENDECTOMY BIVENTICULAR PACEMAKER INSERTION 09/05/2014 [employer] CABG (2) VEIN GRAFTS & ARTERIAL GRAFT(S 07/22/2013 THURMAN to LAD and Dx CARPAL TUNNEL COLONOSCOPY 08/01/2011 5mm rectal polyp COLONOSCOPY 12/05/2015 rectal polyp (adenoma) and diverticulosis CYSTOSCOPY 09/21/2018 EGD 07/17/2011 sliding hiatal hernia EGD 11/19/2015 Dr. Lema- HEART CATHETERIZATION 01/29/2016 HEART CATHETERIZATION 07/21/2013 The patient was advised a cardiothoracic consultation for coronary artery bypass surgery. Mid and distal LAD has severe disease. This is not suitable for percutaneous intervention and it is a bifurcation lesion. 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 Thiago Verdugo REMV CATARACT EXTRACAP,INSERT LENS Left 04/16/2017 Dr. Das ROTATOR CUFF REPAIR Right TOTAL ABDOM HYSTERECTOMY 1983 VENA CAVA FILTER INSERTION 08/16/2013 Family History FAMILY HISTORY Problem Relation Age of Onset Diabetes Mother Coronary Artery Disease Mother NE's Cancer Father Heart Sister NE's, valve replaced Stroke Sister Ovarian cancer Sister Multiple Sclerosis Sister Hypertension Sister Coronary Artery Disease Brother 2 brothers CABG Aneurysm Brother Calcium Disorder No Family History Parathyroid Disease No Family History Osteoporosis No Family History Patient Allergies ALLERGIES Allergen Reactions Glatiramer Rash, Itching Current Medications Current Outpatient Medications on File Prior to Visit Medication Sig esomeprazole (NEXIUM) 40 mg capsule Take 1 capsule by mouth daily before breakfast. 1/2 hr before meal. spironolactone (ALDACTONE) 25 mg tablet Take 1 tablet by mouth once daily. fenofibrate nanocrystallized (TRICOR) 145 mg tablet Take 1 tablet by mouth once daily. losartan (COZAAR) 50 mg tablet Take 1 tablet by mouth once daily. ergocalciferol 50,000 unit capsule (VITAMIN D2, DRISDOL) Take 1 capsule by mouth one time a week. carvedilol (COREG) 25 mg tablet Take 0.5 tablets by mouth two times a day. cholecalciferol, Vitamin D3, (VITAMIN D3) 1,250 mcg (50,000 unit) cap capsule Take 1 capsule by mouth one time a week. apixaban (ELIQUIS) 5 mg tab(s) Take 1 tablet by mouth two times a day. pravastatin (PRAVACHOL) 40 mg tablet Take 1 tablet by mouth daily at bedtime. magnesium oxide (MAGOX) 400 mg (241.3 mg magnesium) tablet Take 1 tablet by mouth two times a day. DULoxetine (CYMBALTA) 60 mg capsule Take 60 mg by mouth two times a day. VUMERITY 231 mg capsule, delayed release Take 462 mg by mouth two times a day. Dr. Clemente dimethyl fumarate (TECFIDERA) [address] Take 1 capsule by mouth twice daily. SYMBICORT 160-4.5 mcg/actuation inhaler Inhale 2 Puffs as instructed twice daily as needed. gabapentin (NEURONTIN) 800 mg tablet Take 800 mg by mouth three times a day. ALBUTEROL SULFATE HFA INHALATION Inhale 2 Puffs as instructed every 4 hours as needed. baclofen (LIORESAL) 20 mg tablet Take by [...] Social History Tobacco Use Smoking status: Former Current packs/day: 1.00 Average packs/day: 1 pack/day for 20.0 years (20.0 ttl pk-yrs) Types: Cigarettes Passive exposure: Past Smokeless tobacco: Never Tobacco comments: Quit around 1995 Vaping Use Vaping status: Never Used Substance Use Topics Alcohol use: Not Currently Comment: occ Drug use: Never EXAM: BP 128/82 Pulse 96 Resp 20 Wt 104.5 kg (230 lb 6.1 oz) SpO2 94% BMI 42.14 kg/m General Appearance: Well appearing, alert, in no acute distress, well-hydrated, well nourished. and Morbidly obese. Lungs: Lungs clear to auscultation. No wheezing, rhonchi, rales.. Heart: RRR without murmur, gallop, or rubs. No ectopy. Health Maintenance List DTaP,Tdap,Td Vaccine(1 - Tdap) Never done BP Controlled (<130/80) due on 02/19/2024 Advance Directive Discussion due on 04/13/2024 Colorectal Cancer Screening due on 03/06/2025 RSV Vaccine(1 - 1-dose 75+ series) due on 03/07/2025 Shingrix Vaccine(1 of 2) due on 03/07/2025 Covid-19 Vaccine( - season) due on 03/07/2025 Annual PCP Team Chronic Disease Visit due on 03/07/2025 Depression Screening due on 03/07/2025 Anxiety Screening due on 03/07/2025 LDL Cholesterol due on 08/22/2025 Diabetes Screening due on 08/23/2027 Lipid Screening due on 08/22/2029 Bone Density Screening Completed Influenza Vaccine Completed Hepatitis C Screening Completed Pneumococcal Vaccine: 50+ Completed Mammogram Screening Discontinued Data reviewed Results Only on 08/22/2024 Component Date Value Hemoglobin A1C 08/22/2024 5.8 (H) Estimated Average Glucose 08/22/2024 120 Cholesterol, Total 08/22/2024 125 Triglyceride 08/22/2024 93 HDL Cholesterol 08/22/2024 41 LDL Cholesterol, Calcula* 08/22/2024 66 Non HDL Cholesterol 08/22/2024 84 VLDL Cholesterol 08/22/2024 14 TC:HDL Ratio 08/22/2024 3.05 LDL:HDL Ratio 08/22/2024 1.61 Fasting Time 08/22/2024 12 Normalized Calcium 08/22/2024 1.54 (H) Calcium Ionized, Whole B* 08/22/2024 1.58 (H) Protein, Total 08/22/2024 7.1 Albumin 08/22/2024 4.5 Calcium, Total 08/22/2024 11.5 (H) Bilirubin, Total 08/22/2024 0.3 Alkaline Phosphatase 08/22/2024 82 AST 08/22/2024 17 ALT 08/22/2024 25 Glucose 08/22/2024 121 (H) BUN 08/22/2024 20 Creatinine 08/22/2024 0.70 Sodium 08/22/2024 140 Potassium 08/22/2024 4.2 Chloride 08/22/2024 105 CO2 08/22/2024 25 Anion Gap 08/22/2024 10 Estimated Glomerular Baldomero* 08/22/2024 90 PTH, Intact 08/22/2024 69 (H) Vitamin D 25 Hydroxy 08/22/2024 29.6 (L) Magnesium 08/22/2024 2.1 Phosphorus 08/22/2024 2.4 (L) Alk Phosphatase, Bone 08/22/2024 16.5 ASSESSMENT/PLAN: 1. Essential hypertension - ICD9: 401.9, ICD10: I10 (primary diagnosis) - Controlled - Continue current medications - Recommend home blood pressure monitoring, to bring results to next visit - Encouraged sodium restriction, DASH or Mediterranean diet - Recommend regular aerobic exercise - Discussed need for and benefit of weight loss. BMI 42.14 kg/(m^2) 2. Multiple sclerosis (HCC) - ICD9: 340, ICD10: G35 Continue current medications. Continue with Neuro 3. Neuropathic pain - ICD9: 729.2, ICD10: M79.2 Continue current medications. Continue with Neuro 4. Hyperlipidemia, unspecified hyperlipidemia type - ICD9: 272.4, ICD10: E78.5 - Controlled - Continue current medications - Counseled on healthy diet and regular exercise - Discussed need for and benefit of weight loss. BMI 42.14 kg/(m^2) - LIPID PANEL, FASTING - COMPREHENSIVE METABOLIC PANEL 5. Gastroesophageal reflux disease, unspecified whether esophagitis present - ICD9: 530.81, ICD10: K21.9 Controlled Continue current medications. 6. REBECCA (obstructive sleep apnea) - ICD9: 327.23, ICD10: G47.33 Continue with CPAP device Continue with pulm 7. Iron deficiency anemia, unspecified iron deficiency anemia type - ICD9: 280.9, ICD10: D50.9 Monitored with labs Continue current medications. - COMPLETE BLOOD COUNT AND DIFFERENTIAL 8. Coronary artery disease involving [place] coronary artery of [place] heart without angina pectoris - ICD9: 414.01, ICD10: I25.10 Continue current medications. - LIPID PANEL, FASTING - COMPREHENSIVE METABOLIC PANEL 9. Vitamin D deficiency - ICD9: 268.9, ICD10: E55.9 Monitored with labs Continue with Endo 10. Morbid obesity (HCC) - ICD9: 278.01, ICD10: E66.01 Recommend healthy diet and exercise 11. Congestive heart failure, unspecified HF chronicity, unspecified heart failure type (HCC) - ICD9: 428.0, ICD10: I50.9 Continue current medications. 12. PAF (paroxysmal atrial fibrillation) (HCC) - ICD9: 427.31, ICD10: I48.0 Continue current medications. 13. Transient ischemic attack - ICD9: 435.9, ICD10: G45.9 Continue with Neuro 14. Mild intermittent asthma without complication (HCC) - ICD9: 493.90, ICD10: J45.20 - Mild intermittent asthma stable - Continue current medications - Avoidance of triggers recommended - Continue with Pulm Follow up in 6 months with fasting labs prior. I agree with the Chief Complaint, ROS, and Past Histories independently gathered by the clinical production support engineer and the remaining scribed note accurately describes my personal service to the patient. Medical Decision Making: Problems: Moderate: 2+ stable chronic illnesses Data: Unique test result(s) reviewed: 2 Risk: Moderate: Drug management Medical Decision Making Level: 4 - Moderate Edmundo Cruz MD The documentation for this note was completed by Shara Oneil MA acting as scribe for Edmnudo Cruz MD. September 06, 2024 8:28 AM. Shara Oneil MA documented in this encounter [facility] 09-06-2024 Note HNO ID: [id number] Author: EDMUNDO CRUZ MD Service: ? Author Type: Physician Type: Progress Notes Filed: 09/06/2024 16:47 Note Text: Chief Complaint Patient presents with: 6 Month Exam HPI Jenni Albright is a 73 year old female who presents here today for 6 month follow up. Here with , [place]. Their grandson just graduated from [employer], he is going to be going to [employer] on football. Has an advanced directive. No bowel, Gi, or urinary issues. GERD: Sx controlled on Nexium 40 mg daily. HTN/CHF: Taking Coreg 25 mg half pill BID, Losartan 50 mg daily, Aldactone 25 mg daily. No chest pains, dizziness, or SOB. Follows with Cardio Dr. Draper. Denies checking BP at home. Has a pacemaker. PE AND DVT: Taking Eliquis 5 mg BID. Follows with Endo, Dr. Lomeli for vitamin d deficiency. No longer taking vitamin D3 50,000 international unit(s) weekly. Has had elevated calcium and PTH. Lipid/CAD/glucose: Taking Pravastatin 40 mg daily and tricor 145 mg daily. Denies watching diet or exercising. MS: Taking Gabapentin 800 mg 1 pill TID, Tecfidera 240 mg BID and Vumerity 231 mg BID. Follows with Neuro Dr. Clemente. REBECCA AND Asthma: Uses CPAP every night. Follows with salomon Berger. Is using Albuterol inhaler prn and Symbicort inhaler BID. Past medical history, appointments, medications, allergies reviewed. 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 11/19/2015 BBB (bundle branch block) CAD (coronary artery disease) 07/2013 non-STMI/CABG CHB (complete heart block) (HCC) Congestive heart failure (HCC) GERD (gastroesophageal reflux disease) hiatal hernia History of DVT (deep vein thrombosis) 09/14/2015 History of rectal polypectomy 07/2011 Hyperlipidemia Hypertension Iron deficiency anemia Multiple sclerosis (HCC) Neuropathic pain Legs>arms from MS REBECCA (obstructive sleep apnea) on CPAP Pacemaker Pulmonary embolism (HCC) 07/2013 during hospitalization for NE Vitamin D deficiency Previous Surgical History PAST SURGICAL HISTORY Procedure Laterality Date APPENDECTOMY BIVENTICULAR PACEMAKER INSERTION 09/05/2014 [employer] CABG (2) VEIN GRAFTS AND ARTERIAL GRAFT(S 07/22/2013 THURMAN to LAD and Dx CARPAL TUNNEL COLONOSCOPY 08/01/2011 5mm rectal polyp COLONOSCOPY 12/05/2015 rectal polyp (adenoma) and diverticulosis CYSTOSCOPY 09/21/2018 EGD 07/17/2011 sliding hiatal hernia EGD 11/19/2015 Dr. Lema- HEART CATHETERIZATION 01/29/2016 HEART CATHETERIZATION 07/21/2013 The patient was advised a cardiothoracic consultation for coronary artery bypass surgery. Mid and distal LAD has severe disease. This is not suitable for percutaneous intervention and it is a bifurcation lesion. 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 Thiago Verdugo REMV CATARACT EXTRACAP,INSERT LENS Left 04/16/2017 Dr. Das ROTATOR CUFF REPAIR Right TOTAL ABDOM HYSTERECTOMY 1983 VENA CAVA FILTER INSERTION 08/16/2013 Family History FAMILY HISTORY Problem Relation Age of Onset Diabetes Mother Coronary Artery Disease Mother NE's Cancer Father Heart Sister NE's, valve replaced Stroke Sister Ovarian cancer Sister Multiple Sclerosis Sister Hypertension Sister Coronary Artery Disease Brother 2 brothers CABG Aneurysm Brother Calcium Disorder No Family History Parathyroid Disease No Family History Osteoporosis No Family History Patient Allergies ALLERGIES Allergen Reactions Glatiramer Rash, Itching Current Medications Current Outpatient Medications on File Prior to Visit Medication Sig esomeprazole (NEXIUM) 40 mg capsule Take 1 capsule by mouth daily before breakfast. 1/2 hr before meal. spironolactone (ALDACTONE) 25 mg tablet Take 1 tablet by mouth once daily. fenofibrate nanocrystallized (TRICOR) 145 mg tablet Take 1 tablet by mouth once daily. losartan (COZAAR) 50 mg tablet Take 1 tablet by mouth once daily. ergocalciferol 50,000 unit capsule (VITAMIN D2, DRISDOL) Take 1 capsule by mouth one time a week. carvedilol (COREG) 25 mg tablet Take 0.5 tablets by mouth two times a day. cholecalciferol, Vitamin D3, (VITAMIN D3) 1,250 mcg (50,000 unit) cap capsule Take 1 capsule by mouth one time a week. apixaban (ELIQUIS) 5 mg tab(s) Take 1 tablet by mouth two times a day. pravastatin (PRAVACHOL) 40 mg tablet Take 1 tablet by mouth daily at bedtime. magnesium oxide (MAGOX) 400 mg (241.3 mg magnesium) tablet Take 1 tablet by mouth two times a day. DULoxetine (CYMBALTA) 60 mg capsule Take 60 mg by mouth two times a day. VUMERITY 231 mg capsule, delayed release Take 462 mg by mouth two times a day. Dr. Clemente dimethyl fumarate (TECFIDERA) [address] Take 1 capsule by mouth twice daily. SYMBICORT 160-4.5 mcg/actuation inhaler Inhale 2 Puffs as instructed twice daily as neede (more content not included)... [facility] 08-25-2024 Radiology Diagnostic study note [facility] Imaging Services [address], [place] [address] Cyst Puncture MR#: [id number] Acct: [id number] Name: JENNI ALBRIGHT Rep #: [id number] : 1950 F 73 From: Gabino Zhang MD PCP: Dr. Edmundo Cruz MD Status: RE G CLI Study:Cyst Puncture Date of Exam: Exam# [id number] Ordering Dr: Dylan Coronado DO PROCEDURE: CYST PUNCTURE 08/25/2024 REASON FOR EXAM: Large left glenohumeral joint effusion. TECHNIQUE: Following informed consent, and using standard sterile technique, an ultrasound-guided left glenohumeral joint fluid aspiration was performed. 21 gauge needle was placed under ultrasound guidance into the fluid collection, and a proximally 60 mL dark booker fluid was successfully removed, and sent to the laboratory for evaluation. No complication was encountered, and the patient left the department in good condition, without significant complaint. COMPARISON: CT examination of 06/17/2019. US/Cyst Puncture IMPRESSION: Successful left glenohumeral joint effusion aspiration. Laboratory results pending. Reading Location: [place] [address] CC: Dr. Edmundo Cruz MD; Dr. Dylan Coronado DO ~ [place]: Signed [facility] 08-25-2024 Telephone encounter Note No indication to take 12 weeks, and no indication to refill. Denied refilling this medication [facility] 08-25-2024 Miscellaneous Notes No indication to take 12 weeks, and no indication to refill. Denied refilling this medication Images from the original note were not included. Temporary (2 month) supply pended as patient has NOV 09/29/2024. Most recent Endocrinology visit: Last encounter Visit on 06/28/2024 (with Narcisa Lomeli) 03/28/2024 in [facility] with NARCISA LOMELI for Hypercalcemia 06/28/2024 in [facility] with NARCISA LOMELI for Vitamin D deficiency Upcoming Endocrinology Appointments - Next 365 Days Visit Type Date Time Department EST JANEEN PATIENT 09/29/2024 9:40 AM [facility] Requested Prescriptions Pending Prescriptions Disp Refills ergocalciferol 50,000 unit capsule (VITAMIN D2, DRISDOL) [Pharmacy Med Name: VITAMIN D2 1.25MG(50,000 UNIT)] 8 capsule 0 Sig: TAKE 1 CAPSULE BY MOUTH ONE TIME A WEEK. Latest Ref Rng & Units 08/22/2024 02/09/2024 07/28/2023 Hemoglobin A1C Hemoglobin A1C 4.3 - 5.6 % 5.8 6.1 5.6 Latest Ref Rng & Units 03/28/2024 08/30/2020 TSH TSH 0.270 - 4.200 mIU/L 2.970 3.976 Free T3: None on file in the last 12 months Free T4: None on file in the last 12 months Thyroglobulin: None on file in the last 12 months Latest Ref Rng & Units 08/22/2024 03/28/2024 04/02/2020 Vitamin D Vitamin D 25 Hydroxy 31.0 - 80.0 ng/mL 29.6 12.7 29.1 Hematocrit: None on file in the last 12 months Latest Ref Rng & Units 08/22/2024 02/09/2024 07/28/2023 Creatinine Creatinine 0.58 - 0.96 mg/dL 0.70 0.66 0.72 Latest Ref Rng & Units 08/22/2024 02/09/2024 07/28/2023 eGFR EGFR >=60 mL/min/1.73m 90 92 88 Latest Ref Rng & Units 08/22/2024 02/09/2024 07/28/2023 Potassium Potassium 3.7 - 5.1 mmol/L 4.2 4.5 4.6 Testosterone: None on file in the last 12 months IGF: None on file in the last 12 months Prolactin: None on file in the last 12 months documented in this encounter [facility] 08-25-2024 Telephone encounter Note Images from the original note were not included. Temporary (2 month) supply pended as patient has NOV 09/29/2024. Most recent Endocrinology visit: Last encounter Visit on 06/28/2024 (with Narcisa Lomeli) 03/28/2024 in [facility] with NARCISA LOMELI for Hypercalcemia 06/28/2024 in [facility] with NARCISA LOMELI for Vitamin D deficiency Upcoming Endocrinology Appointments - Next 365 Days Visit Type Date Time Department EST JANEEN PATIENT 09/29/2024 9:40 AM [facility] Requested Prescriptions Pending Prescriptions Disp Refills ergocalciferol 50,000 unit capsule (VITAMIN D2, DRISDOL) [Pharmacy Med Name: VITAMIN D2 1.25MG(50,000 UNIT)] 8 capsule 0 Sig: TAKE 1 CAPSULE BY MOUTH ONE TIME A WEEK. Latest Ref Rng & Units 08/22/2024 02/09/2024 07/28/2023 Hemoglobin A1C Hemoglobin A1C 4.3 - 5.6 % 5.8 6.1 5.6 Latest Ref Rng & Units 03/28/2024 08/30/2020 TSH TSH 0.270 - 4.200 mIU/L 2.970 3.976 Free T3: None on file in the last 12 months Free T4: None on file in the last 12 months Thyroglobulin: None on file in the last 12 months Latest Ref Rng & Units 08/22/2024 03/28/2024 04/02/2020 Vitamin D Vitamin D 25 Hydroxy 31.0 - 80.0 ng/mL 29.6 12.7 29.1 Hematocrit: None on file in the last 12 months Latest Ref Rng & Units 08/22/2024 02/09/2024 07/28/2023 Creatinine Creatinine 0.58 - 0.96 mg/dL 0.70 0.66 0.72 Latest Ref Rng & Units 08/22/2024 02/09/2024 07/28/2023 eGFR EGFR >=60 mL/min/1.73m 90 92 88 Latest Ref Rng & Units 08/22/2024 02/09/2024 07/28/2023 Potassium Potassium 3.7 - 5.1 mmol/L 4.2 4.5 4.6 Testosterone: None on file in the last 12 months IGF: None on file in the last 12 months Prolactin: None on file in the last 12 months [facility] 08-22-2024 Telephone encounter Note Call received from [facility] Main Lab at 3:31pm with report of critical lab results. Ionized calcium - 1.58 Normalized calcium - 1.54 Dr. Lomeli verbally notified at 3:40pm and given print out of results from Pt's chart. No new orders given. Rosy Orosco RN August 22, 2024 3:34 PM [facility] 08-22-2024 Miscellaneous Notes Call received from [facility] Main Lab at 3:31pm with report of critical lab results. Ionized calcium - 1.58 Normalized calcium - 1.54 Dr. Lomeli verbally notified at 3:40pm and given print out of results from Pt's chart. No new orders given. Rosy Orosco RN August 22, 2024 3:34 PM documented in this encounter [facility] 08-22-2024 Telephone encounter Note Type of form: Form from [facility] for authorization to hold anti-thrombotic for shoulder injection procedure, by Dr. Coronado. Form received via fax When form is completed, Fax form to [phone] [facility] Radiology Dept. Form has been forwarded to Physician Desk: Dr. Nancy Caruso MA [facility] 08-22-2024 Miscellaneous Notes Type of form: Form from [facility] for authorization to hold anti-thrombotic for shoulder injection procedure, by Dr. Coronado. Form received via fax When form is completed, Fax form to [phone] [facility] Radiology Dept. Form has been forwarded to Physician Desk: Dr. Nancy Caruso MA documented in this encounter [facility] 07-28-2024 Telephone encounter Note The following approved medication requests have been transmitted electronically. Requested Prescriptions Pending Prescriptions Disp Refills esomeprazole (NEXIUM) 40 mg capsule 90 capsule 3 Sig: Take 1 capsule by mouth daily before breakfast. 1/2 hr before meal. spironolactone (ALDACTONE) 25 mg tablet 90 tablet 3 Sig: Take 1 tablet by mouth once daily. Deion Russell APRN.QUINTON [facility] 07-28-2024 Miscellaneous Notes The following approved medication requests have been transmitted electronically. Requested Prescriptions Pending Prescriptions Disp Refills esomeprazole (NEXIUM) 40 mg capsule 90 capsule 3 Sig: Take 1 capsule by mouth daily before breakfast. 1/2 hr before meal. spironolactone (ALDACTONE) 25 mg tablet 90 tablet 3 Sig: Take 1 tablet by mouth once daily. Deion Russell APRN.CNP Prescription Refill Information The patient has been identified by name and date of : Yes Caregiver verified no other encounters exist for this prescription request: Yes Caregiver confirmed with patient/requestor that no other refills are due, in the near future, with this provider at this time: Yes The last office visit in the department: 03/07/24 Does the patient have a future office visit with this provider/department: Yes Requested Prescriptions Pending Prescriptions Disp Refills esomeprazole (NEXIUM) 40 mg capsule 90 capsule 3 Sig: Take 1 capsule by mouth daily before breakfast. 1/2 hr before meal. spironolactone (ALDACTONE) 25 mg tablet 90 tablet 3 Sig: Take 1 tablet by mouth once daily. Madison Mojica July 27, 2024 3:04 PM documented in this encounter [facility] 07-27-2024 Telephone encounter Note Prescription Refill Information The patient has been identified by name and date of : Yes Caregiver verified no other encounters exist for this prescription request: Yes Caregiver confirmed with patient/requestor that no other refills are due, in the near future, with this provider at this time: Yes The last office visit in the department: 03/07/24 Does the patient have a future office visit with this provider/department: Yes Requested Prescriptions Pending Prescriptions Disp Refills esomeprazole (NEXIUM) 40 mg capsule 90 capsule 3 Sig: Take 1 capsule by mouth daily before breakfast. 1/2 hr before meal. spironolactone (ALDACTONE) 25 mg tablet 90 tablet 3 Sig: Take 1 tablet by mouth once daily. Madison Mojica July 27, 2024 3:04 PM [facility] 07-21-2024 Evaluation note Diagnosis Onset Date Resolution Hypercalcemia acute July 21, 2024 8:21am Multiple sclerosis chronic July 21, 2024 8:21am [facility] Work Phone: 1(494) 205-116004-10-2025 Evaluation note* Diagnosis Onset Date Resolution Status Admit Date Hypercalcemia acute July 21, 2024 8:21am History of vitamin D deficiency referral and information aide taurus July 21, 2024 8:21am Multiple sclerosis chronic July 21, 2024 8:21am [facility] Work Phone: 1(665) 341-306604-10-2025 Evaluation note* Diagnosis Onset Date Resolution Status Admit Date Hypercalcemia acute July 21, 2024 8:21am History of vitamin D deficiency referral and information aide taurus July 21, 2024 8:21am Multiple sclerosis chronic July 21, 2024 8:21am Asthma chronic September 09, 2024 9:17am Morbid obesity chronic September 09, 2024 9:17am REBECCA (obstructive sleep apnea) chroni c September 09, 2024 9:17am [facility] Work Phone: 1(975) 938-471204-10-2025 Telephone encounter Note* Telephone Encounter - Deion Russell APRN.CNP - 07/21/2024 6:11 AM EDT The following approved medication requests have been transmitted electronically. Requested Prescriptions Pending Prescriptions Disp Refills fenofibrate nanocrystallized (TRICOR) 145 mg tablet 90 tablet 3 Sig: Take 1 tablet by mouth once daily. losartan (COZAAR) 50 mg tablet 90 tablet 3 Sig: Take 1 tablet by mouth once daily. Deion Russell APRN.CNP [facility]04-10-2025 Miscellaneous Notes* Telephone Encounter - Deion Russell APRN.CNP - 07/21/2024 6:11 AM EDT The following approved medication requests have been transmitted electronically. Requested Prescriptions Pending Prescriptions Disp Refills fenofibrate nanocrystallized (TRICOR) 145 mg tablet 90 tablet 3 Sig: Take 1 tablet by mouth once daily. losartan (COZAAR) 50 mg tablet 90 tablet 3 Sig: Take 1 tablet by mouth once daily. Deion Russell APRN.CNP * Telephone Encounter - Kimi Galvin - 07/20/2024 10:39 AM EDT Prescription Refill Information The patient has been identified by name and date of : Yes Caregiver verified no other encounters exist for this prescription request: Yes Caregiver confirmed with patient/requestor that no other refills are due, in the near future, with this provider at this time: Yes The last office visit in the department: 03-07-24 Does the patient have a future office visit with this provider/department: Yes Requested Prescriptions Pending Prescriptions Disp Refills fenofibrate nanocrystallized (TRICOR) 145 mg tablet 90 tablet 3 Sig: Take 1 tablet by mouth once daily. losartan (COZAAR) 50 mg tablet 90 tablet 3 Sig: Take 1 tablet by mouth once daily. Kimi Padilla July 20, 2024 10:39 AM [facility] Telephone encounter Note * Telephone Encounter - Kimi Galvin - 07/20/2024 10:39 AM EDT Prescription Refill Information The patient has been identified by name and date of : Yes Caregiver verified no other encounters exist for this prescription request: Yes Caregiver confirmed with patient/requestor that no other refills are due, in the near future, with this provider at this time: Yes The last office visit in the department: 03-07-24 Does the patient have a future office visit with this provider/department: Yes Requested Prescriptions Pending Prescriptions Disp Refills fenofibrate nanocrystallized (TRICOR) 145 mg tablet 90 tablet 3 Sig: Take 1 tablet by mouth once daily. losartan (COZAAR) 50 mg tablet 90 tablet 3 Sig: Take 1 tablet by mouth once daily. Kimi Padilla July 20, 2024 10:39 AM [facility]03-27-2025 Telephone encounter Note* Telephone Encounter - Millie Reardon - 07/07/2024 1:10 PM EDT I called the patient and rescheduled 2 with and device, with Halina and device on 09/22/24 @ 9:00,confirmed.Millie Reardon [facility]03-27-2025 Miscellaneous Notes* Telephone Encounter - Millie Reardon - 07/07/2024 1:10 PM EDT I called the patient and rescheduled 07/13 with and device, with Halina and device on 09/22/24 @ 9:00,confirmed.Millie Reardon [facility] Instructions* Patient Instructions* Narcisa Lomeli MD - 06/28/2024 10:10 AM EDT Please continue taking Vitamin D weeekly for now, until the course is completed- after which pleasetake 1000 units daily available over the counter In the meantime, please take 7729-1551 mg of calcium through foods discussed in the past After 1 to 2 months of calcium intake as above, please do 24 hr urine collection followed by blood labs the next day as below 24 hr urine collection: It s very important to do the 24 hour urine collection correctly: First, you must stop any calcium and vitamin D supplements that you are taking for at least 3 weeks prior to doing the test. Prior to starting the test, you need to supervisor opening and picking the specially prepared collection jug at the center where the urine sample will be dropped off when completed. On the day you start the urine collection: discard the first morning urine on day#1 (the day you start the collection). collect all urine therafter for the entire day, through the night, and include the first morning urine on day #2 (when the test is stopped). if you lose or spill any urine, or flush any urine accidentally te test cannot be interpreted andshould be stopped. When you return the sample: bring the sample in as soon as it is completed - on the same day you finish the collection if possible. have blood drawn on the day you return the urine sample. I ll review these results with you once they ve been completed. This may take up to 10-14 days. [facility] NoteHNO ID: [id number] Author: NARCISA LOMELI MD Service: ? Author Type: Physician Type: Progress Notes Filed: 06/28/2024 19:09 Note Text: Endocrinology and Metabolism [place] Follow up note NAME: Jenni Albright is a 73 year old old female PCP: Edmundo Cruz MD Requesting Provider: Deion Russell APRN. 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 She is accompanied by her Initial/last visit 03/28/2024 From prior documentation, with updates today She has had high calcium for over 3 years, but reports she was not aware of this Has a hx of MS Personal history of kidney stones: no Personal history of fractures: None Family history of osteoporosis: no Height loss: unknown Weight <127 lbs: No Prior radiation to the neck: no Personal history of thyroid disease: no Family history of calcium issues, thyroid or parathyroid disease: no Calcium Intake: Patient eats ~1 serving of calcium/day- 1 yogurt cup every morning, started drinking milk 1 glass a day, some times drinks orange juice when it is on sale Patient takes multivitamins, but no separate calcium supplements or tums Vitamin D Intake: I stared her on 50,000 units of Vitamin d which she has not completed course for yet No recent or prolonged steroid use Smoking: Ex-smoker- remote hx Alcohol: occasionally Exercise: no regular exercise program History of falls: reports her legs give out sometimes due to MS, and has falls occasionally Menopause at age: 40s, she had partial hysterectomy due to large tumor on the uterus, surgical pathology was benign HRT: No No hx of cancer or radiation therapy Denied any steroid use, use of lithium or HCTZ in the past Has constipation for several years, and this is baseline for her Denied any symptoms at this time include anorexia, N/V, polyuria, polydipsia, blood in urine, bone pains She had multiple falls since last visit, the one on 06/16/24 was "big" she reports falling in the bathroom, she did not seek medical attention for this. 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 11/19/2015 BBB (bundle branch block) CAD (coronary artery disease) 07/2013 non-STMI/CABG CHB (complete heart block) (HCC) Congestive heart failure (HCC) GERD (gastroesophageal reflux disease) hiatal hernia History of DVT (deep vein thrombosis) 09/14/2015 History of rectal polypectomy 07/2011 Hyperlipidemia Hypertension Iron deficiency anemia Multiple sclerosis (HCC) Neuropathic pain Legs>arms from MS REBECCA (obstructive sleep apnea) on CPAP Pacemaker Pulmonary embolism (HCC) 07/2013 during hospitalization for [place] Vitamin D deficiency PAST SURGICAL HISTORY Procedure Laterality Date APPENDECTOMY BIVENTICULAR PACEMAKER INSERTION 09/05/2014 [employer] CABG (2) VEIN GRAFTS AND ARTERIAL GRAFT(S 07/22/2013 THURMAN to LAD and Dx CARPAL TUNNEL COLONOSCOPY 08/01/2011 5mm rectal polyp COLONOSCOPY 12/05/2015 rectal polyp (adenoma) and diverticulosis CYSTOSCOPY 09/21/2018 EGD 07/17/2011 sliding hiatal hernia EGD 11/19/2015 Dr. Lema- HEART CATHETERIZATION 01/29/2016 HEART CATHETERIZATION 07/21/2013 The patient was advised a cardiothoracic consultation for coronary artery bypass surgery. Mid and distal LAD has severe disease. This is not suitable for percutaneous intervention and it is a bifurcation lesion. 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 Thiago Verdugo REMV CATARACT EXTRACAP,INSERT LENS Left 04/16/2017 Dr. Das ROTATOR CUFF REPAIR Right TOTAL ABDOM HYSTERECTOMY 1983 VENA CAVA FILTER INSERTION 08/16/2013 FAMILY HISTORY Problem Relation Age of Onset Diabetes Mother Coronary Artery Disease Mother NE's Cancer Father Heart Sister NE's, valve replaced Stroke Sister Ovarian cancer Sister Multiple Sclerosis Sister Hypertension Sister Coronary Artery Disease Brother 2 brothers CABG Aneurysm Brother Calcium Disorder No Family History Parathyroid Disease No Family History Osteoporosis No Family History ALLERGIES Allergen Reactions Glatiramer Rash, Itching Social History Tobacco Use Smoking status: Former Current packs/day: 1.00 Average packs/day: 1 pack/day for 20.0 years (20.0 ttl pk-yrs) Types: Cigarettes Passive exposure: Past Smokeless tobacco: Never Tobacco comments: Quit around 1995 Vaping Use Vaping status: Never Used Substance Use Topics Alcohol use: Not Currently Comment: occ Drug use: Never Current Outpatient Medications Medication Sig ergocalciferol 50,000 unit capsule (VITAMIN D2, DRISDOL) Take 1 capsule by mouth one time a week. carvedilol (COREG) 25 mg tablet Take 0.5 tablets by mouth two times a day. cholecalciferol, Vitamin D (more content not included)...[facility]03-18-2025 History of Present illness Narrative* Narcisa Lomeli MD - 06/28/2024 9:58 AM EDT Endocrinology [facility] Met[facility] [place] Follow up note NAME: Jenni Albright is a 73 year old old female PCP: Edmundo Cruz MD Requesting Provider: Deion Russell APRN. 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 She is accompanied by her Initial/last visit 03/28/2024 From prior documentation, with updates today She has had high calcium for over 3 years, but reports she was not aware of this Has a hx of MS Personal history of kidney stones: no Personal history of fractures: None Family history of osteoporosis: no Height loss: unknown Weight <127 lbs: No Prior radiation to the neck: no Personal history of thyroid disease: no Family history of calcium issues, thyroid or parathyroid disease: no Calcium Intake: Patient eats ~1 serving of calcium/day- 1 yogurt cup every morning, started drinking milk 1 glass a day, some times drinks orange juice when it is on sale Patient takes multivitamins, but no separate calcium supplements or tums Vitamin D Intake: I stared her on 50,000 units of Vitamin d which she has not completed course for yet No recent or prolonged steroid use Smoking: Ex-smoker- remote hx Alcohol: occasionally Exercise: no regular exercise program History of falls: reports her legs give out sometimes due to MS, and has falls occasionally Menopause at age: 40s, she had partial hysterectomy due to large tumor on the uterus, surgical pathology was benign HRT: No No hx of cancer or radiation therapy Denied any steroid use, use of lithium or HCTZ in the past Has constipation for several years, and this is baseline for her Denied any symptoms at this time include anorexia, N/V, polyuria, polydipsia, blood in urine, bone pains She had multiple falls since last visit, the one on 06/16/24 was "big" she reports falling in the bathroom, she did not seek medical attention for this. 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 11/19/2015 BBB (bundle branch block) CAD (coronary artery disease) 07/2013 non-STMI/CABG CHB (complete heart block) (HCC) Congestive heart failure (HCC) GERD (gastroesophageal reflux disease) hiatal hernia History of DVT (deep vein thrombosis) 09/14/2015 History of rectal polypectomy 07/2011 Hyperlipidemia Hypertension Iron deficiency anemia Multiple sclerosis (HCC) Neuropathic pain Legs>arms from MS REBECAC (obstructive sleep apnea) on CPAP Pacemaker Pulmonary embolism (HCC) 07/2013 during hospitalization for [place] Vitamin D deficiency PAST SURGICAL HISTORY Procedure Laterality Date APPENDECTOMY BIVENTICULAR PACEMAKER INSERTION 09/05/2014 [employer] CABG (2) VEIN GRAFTS & ARTERIAL GRAFT(S 07/22/2013 THURMAN to LAD and Dx CARPAL TUNNEL COLONOSCOPY 08/01/2011 5mm rectal polyp COLONOSCOPY 12/05/2015 rectal polyp (adenoma) and diverticulosis CYSTOSCOPY 09/21/2018 EGD 07/17/2011 sliding hiatal hernia EGD 11/19/2015 Dr. Lema- HEART CATHETERIZATION 01/29/2016 HEART CATHETERIZATION 07/21/2013 The patient was advised a cardiothoracic consultation for coronary artery bypass surgery. Mid and distal LAD has severe disease. This is not suitable for percutaneous intervention and it is a bifurcation lesion. 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 Das [facility] REMV CATARACT EXTRACAP,INSERT LENS Left 04/16/2017 Dr. Das ROTATOR CUFF REPAIR Right TOTAL ABDOM HYSTERECTOMY 1983 VENA CAVA FILTER INSERTION 08/16/2013 FAMILY HISTORY Problem Relation Age of Onset Diabetes Mother Coronary Artery Disease Mother NE's Cancer Father Heart Sister NE's, valve replaced Stroke Sister Ovarian cancer Sister Multiple Sclerosis Sister Hypertension Sister Coronary Artery Disease Brother 2 brothers CABG Aneurysm Brother Calcium Disorder No Family History Parathyroid Disease No Family History Osteoporosis No Family History ALLERGIES Allergen Reactions Glatiramer Rash, Itching Social History Tobacco Use Smoking status: Former Current packs/day: 1.00 Average packs/day: 1 pack/day for 20.0 years (20.0 ttl pk-yrs) Types: Cigarettes Passive exposure: Past Smokeless tobacco: Never Tobacco comments: Quit around 1995 Vaping Use Vaping status: Never Used Substance Use Topics Alcohol use: Not Currently Comment: occ Drug use: Never Current Outpatient Medications Medication Sig ergocalciferol 50,000 unit capsule (VITAMIN D2, DRISDOL) Take 1 capsule by mouth one time a week. carvedilol (COREG) 25 mg tablet Take 0.5 tablets by mouth two times a day. cholecalciferol, Vitamin D3, (VITAMIN D3) 1,250 mcg (50,000 unit) cap capsule Take 1 capsule by mouth one time a week. apixaban (ELIQUIS) 5 mg tab(s) Take 1 tablet by mouth two times a day. pravastatin (PRAVACHOL) 40 mg tablet Take 1 tablet by mouth daily at bedtime. losartan (COZAAR) 50 mg tablet Take 1 tablet by mouth once daily. spironolactone (ALDACTONE) 25 mg tablet Take 1 tablet by mouth once daily. magnesium oxide (MAGOX) 400 mg (241.3 mg magnesium) tablet Take 1 tablet by mouth two times a day. esomeprazole (NEXIUM) 40 mg capsule Take 1 capsule by mouth daily before breakfast. 1/2 hr before meal. fenofibrate nanocrystallized (TRICOR) 145 mg tablet Take 1 tablet by mouth once daily. DULoxetine (CYMBALTA) 60 mg capsule Take 60 mg by mouth two times a day. VUMERITY 231 mg capsule, delayed release Take 462 mg by mouth two times a day. Dr. Clemente dimethyl fumarate (TECFIDERA) [address] Take 1 capsule by mouth twice daily. SYMBICORT 160-4.5 mcg/actuation inhaler Inhale 2 Puffs as instructed twice daily as needed. gabapentin (NEURONTIN) 800 mg tablet Take 800 mg by mouth three times a day. ALBUTEROL SULFATE HFA INHALATION Inhale 2 Puffs as instructed every 4 hours as needed. baclofen (LIORESAL) 20 mg tablet Take by [...] No current facility-administered medications for this visit. Review of Systems 10 point ROS was reviewed and negative unless indicated in the HPI Physical Exam: Temp: 37.1 C (98.7 F) Temp src: Temporal Artery Pulse: 82 SpO2: 98 % Body mass index is 41.15 kg/m . General: Comfortable, no obvious distress, using walker for ambulation Eyes: Sclera anicteric, no pallor Thyroid: Thyroid is normal in size and texture. No nodules palpated CV: Regular rhythm, normal rate. Resp: unlabored breathing on room air Skin: No rashes, lesions, or subcutaneous nodules, no striae Psych: Alert and orientated x 3. Extremities: No peripheral edema, no tenderness, no tremors Neuro: Moves all four extremities. No focal deficits on limited exam. LABS: Latest Reference Range & Units 10/19/12 08:51 05/16/13 09:38 03/20/14 10:49 09/14/15 09:15 11/02/15 10:10 06/15/17 11:16 10/13/17 14:47 04/08/18 10:56 04/04/19 10:11 04/02/20 08:54 08/14/20 10: 11:09 08/29/20 12:11 08/30/20 06:12 10/01/20 08:36 07/29/21 08:30 08/27/22 08:13 04/14/23 07:46 07/28/23 08:49 02/09/24 11:58 Sodium 136 - 144 mmol/L 141 143 139 138 140 137 143 134 (L) 132 (L) 142 141 143 141 142 144 138 453144 142 136 Potassium 3.7 - 5.1 mmol/L 4.0 4.1 4.8 4.3 4.8 4.5 4.2 4.2 4.8 3.8 3.9 3.8 3.7 4.1 4.4 4.6 4.5 4.5 4.6 4.5 Chloride 98 - 107 mmol/L 107 108 104 102 102 102 105 99 97 104 107 (H) 110 (H) 107 108 (H) 105 105 105 107 (H) 100 CO2 22 - 30 mmol/L 23 24 23 24 25 24 25 24 21 (L) 31 (H) 24 27.0 26.0 23 17 (L) 26 26 22 24 BUN 7 - 21 mg/dL 15 16 15 20 22 13 23 (H) 20 14 27 (H) 21 24 22 13 22 (H) 21 17 14 15 BUN/CREATININE RATIO 15 - 24 31 (H) 31 (H) Creatinine 0.58 - 0.96 mg/dL 0.70 0.75 0.82 1.15 1.18 0.88 0.91 0.88 0.77 0.83 0.81 0.77 0.72 0.75 0.71 0.74 0.76 0.72 0.66 Glucose 74 - 99 mg/dL 83 72 83 104 (H) 99 69 (L) 85 92 75 67 (L) 129 (H) 121 (H) 95 121 (H) 107 (H)79 109 (H) 101 (H) 77 Protein, Total 6.3 - 8.0 g/dL 7.4 7.6 7.4 7.9 7.1 7.0 7.0 5.9 (L) 6.5 7.4 7.7 6.7 6.8 7.1 6.8 Calcium 8.5 - 10.2 mg/dL 10.0 10.5 10.3 10.4 11.0 (H) 10.4 (H) 10.5 (H) 10.0 10.5 (H) 10.5 (H) 10.8(H) 11.0 (H) 10.7 (H) 11.1 (H) 11.1 (H) 11.2 (H) 10.8 (H) 11.3 (H) 11.7 (H) Ionized Calcium 1.08 - 1.30 mmol/L 1.38 (H) 1.66 (H) Normalized Calcium 1.08 - 1.30 mmol/L 1.56 (H) Magnesium 1.6 - 2.6 MG/DL 2.1 Albumin 3.9 - 4.9 g/dL 4.2 4.2 4.0 4.3 4.1 3.8 (L) 4.0 3.7 (L) 3.5 4.2 4.4 4.1 4.0 4.2 4.5 Bilirubin, Total 0.2 - 1.3 mg/dL 0.2 0.2 0.2 0.2 0.2 0.2 0.3 0.4 0.20 0.2 0.2 0.3 0.5 <0.2 (L) 0.4 Alkaline Phosphatase 34 - 123 U/L 76 92 80 45 47 56 50 53 75 66 65 68 77 86 85 ALT 7 - 38 U/L 11 16 15 26 17 20 23 61 (H) 32 28 30 26 29 26 29 AST 13 - 35 U/L 19 16 20 28 22 20 22 37 (H) 23 25 27 30 18 22 21 Anion Gap 8 - 15 mmol/L 11 11 12 12 13 11 13 11 14 7 (L) 10 6 9 13 16 9 10 13 12 GLOBULIN 2.2 - 4.2 GM/DL 3.0 eGFR- >60 >60 >60 57 55 >60 >60 >60 >60 >60 >60 Greater than 60 Greater than 60 >60 eGFR-All Other Races . >60 >60 >60 47 46 >60 >60 >60 >60 >60 >60 >60 eGFR >=60 mL/min/1.73m 90 86 82 88 92 Estimated GFR Greater than 60 Greater than 60 (L): Data is abnormally low (H): Data is abnormally high Latest Reference Range & Units 10/19/12 08:51 05/16/13 09:38 03/20/14 10:49 11/02/15 10:10 04/08/18 10:56 04/04/19 10:11 04/02/20 08:54 08/30/20 06:12 02/09/24 11:58 TSH 0.358 - 3.740 UIU/ML 3.976 (H) PTH, Intact 15 - 65 pg/mL 71 (H) Vitamin D 25 Hydroxy 31.0 - 80.0 ng/mL 30.5 (L) 30.0 (L) 25.1 (L) 32.7 29.3 (L) 28.1 (L) 29.1 (L) (H): Data is abnormally high (L): Data is abnormally low Latest Ref Rng 03/28/2024 Albumin 3.43 - 5.41 g/dL 3.95 Alpha 1 Globulin 0.18 - 0.43 g/dL 0.25 Alpha 2 Globulin 0.42 - 0.98 g/dL 0.75 Beta Globulin 0.61 - 1.17 g/dL 0.75 Gamma Globulin 0.53 - 1.51 g/dL 0.69 Interpretation (Prot Electro) No definitive M protein is identified on protein electrophoresis. No definitive M protein is identified on protein electrophoresis. M-Protein Location -- M-Protein Concentration <=0.00 g/dL 0.00 SPE Staff Review Reviewed by Tiffani Michele M.D., Ph.D Normalized Calcium 1.08 - 1.30 mmol/L 1.55 (H) Ionized Calcium 1.08 - 1.30 mmol/L 1.56 (H) Vitamin D 25 Hydroxy 31.0 - 80.0 ng/mL 12.7 (L) TSH 0.270 - 4.200 mIU/L 2.970 Magnesium 1.7 - 2.3 mg/dL 2.3 Phosphorus 2.7 - 4.8 mg/dL 2.7 PTH, Intact 15 - 65 pg/mL 90 (H) Calcium 8.5 - 10.2 mg/dL 11.4 (H) Albumin 3.9 - 4.9 g/dL 4.3 Protein, Total 6.3 - 8.0 g/dL 6.4 Legend: (H) High (L) Low DXA: Not available Assessment & Plan: (E83.52) Hypercalcemia Elevated PTH She has had hypercalcemia atleast since 2020 We reviewed the current laboratory tests are consistent with a diagnosis of primary hyperparathyroidism. We discussed this condition in detail, its natural course including potential complications and indications for treatment. I discussed surgery can be a potential cure if surgical indications are met Her surgical indications include high calcium with highest calcium being 11.7 mg/dl. No other pertinent test available at this time She was advised taking high dose Vitamin D3 which she has been taking for few weeks, but has not completed the course recommended yet. She is advised to take 1000 units daily after high dose course is completed Despite discussing on last visit about calcium intake of 0837-5611 mg daily, she has not been doingthis. Reports she forgot what the lst had, discussed foods once again and advised increasing the amount of calcium through diet, avoiding supplements She is advised to do 24 hr urine labs along with plasma labs after about 1 to 2 months of adequate calcium and completing Vitamin D jenae dose , followed by starting 1000 units daily Instructions for lab work given in detail, written instructions given as well. She reports she might forget these soon after she leaves the clinic, advising keeping the written instructions secure and follow when doing the urine collection If surgery is not preferable, we discussed monitoring with medical treatment of complications. But she does not give me any answer today about her preference anyway, but asks what we are checking for I will check for DXA scan on next visit Plan: 1. Vitamin D deficiency (Primary) - COMPREHENSIVE METABOLIC PANEL; Future - PTH INTACT; Future - VITAMIN D 25 HYDROXY; Future - MAGNESIUM; Future 2. Hypercalcemia - CALCIUM, IONIZED; Future - CALCIUM, 24 HR URINE - SODIUM 24 HR URINE - CREATININE, 24 HOUR URINE - COMPREHENSIVE METABOLIC PANEL; Future - PTH INTACT; Future - VITAMIN D 25 HYDROXY; Future - MAGNESIUM; Future - PHOSPHORUS INORGANIC; Future - ALK PHOS BONE SPEC; Future Follow up in 2 months Narcisa Lomeli MD Endocrinology Associate Staff [facility] Endocrinology and Metabolism [place] [phone] Medical Decision Making: Problems: Moderate: 1+ chronic illnesses with change Data: Unique test result(s) reviewed: 3+ Unique test(s) ordered: 3+ Medical Decision Making Level: 4 - Moderate [facility] Telephone encounter Note * Telephone Encounter - Deion Russell APRN.CNP - 06/21/2024 2:04 PM EDT The following approved medication requests have been transmitted electronically. Requested Prescriptions Pending Prescriptions Disp Refills carvedilol (COREG) 25 mg tablet 90 tablet 3 Sig: Take 0.5 tablets by mouth two times a day. Deion Russell APRN.CNP [facility]03-11-2025 Miscellaneous Notes* Telephone Encounter - Deion Russell APRN.CNP - 06/21/2024 2:04 PM EDT The following approved medication requests have been transmitted electronically. Requested Prescriptions Pending Prescriptions Disp Refills carvedilol (COREG) 25 mg tablet 90 tablet 3 Sig: Take 0.5 tablets by mouth two times a day. Deion Russell APRN.CNP * Telephone Encounter - Sophia Murrell - 06/21/2024 11:54 AM EDT Prescription Refill Information The patient has been identified by name and date of : Yes Caregiver verified no other encounters exist for this prescription request: Yes Caregiver confirmed with patient/requestor that no other refills are due, in the near future, with this provider at this time: Yes The last office visit in the department: 03/07/24 Does the patient have a future office visit with this provider/department: Yes 09/06/24 Requested Prescriptions Pending Prescriptions Disp Refills carvedilol (COREG) 25 mg tablet 90 tablet 3 Sig: Take 0.5 tablets by mouth two times a day. Sophia Murrell June 21, 2024 11:55 AM documented in [facility]Ke[facility] Telephone encounter Note * Telephone Encounter - Sophia Murrell - 06/21/2024 11:54 AM EDT Prescription Refill Information The patient has been identified by name and date of : Yes Caregiver verified no other encounters exist for this prescription request: Yes Caregiver confirmed with patient/requestor that no other refills are due, in the near future, with this provider at this time: Yes The last office visit in the department: 03/07/24 Does the patient have a future office visit with this provider/department: Yes 09/06/24 Requested Prescriptions Pending Prescriptions Disp Refills carvedilol (COREG) 25 mg tablet 90 tablet 3 Sig: Take 0.5 tablets by mouth two times a day. Sophia Murrell June 21, 2024 11:55 AM [facility]03-06-[facility]25 Radiology Diagnostic study note [facility] Imaging Services [address] [place] [id number] Extremity Upper W/WO Contrast MR#: [id number] Acct: [id number] Name: JENNI ALBRIGHT Rep #: [id number] : 1950 F 73 From: Gabino Zhang MD PCP: Dr. Edmundo Cruz MD Status: RE G CLI Study:Extremity Upper W/WO Contrast Date of E xam: 06/16/24 Exam# [id number] Ordering Dr: Dylan Coronado DO PROCEDURE: EXTREMITY UPPER W/WO CONTRAST REASON FOR EXAM: Left upper extremity swelling, mass, and lump. Rule out lipoma. TECHNIQUE: CT of the left arm, without and with contrast COMPARISON: None provided. FINDINGS: [id number] left acromioclavicular joint degenerative changes are seen, with significant associated joint narrowing. Moderately severe left glenohumeral joint degenerative changes are seen, with associated severe joint narrowing. Mild degenerative changes are senior elbow joint. No elbow joint effusion is seen. Within the subcutaneous tissues lateral/posterior left arm, are seen extensive areas of dense calcification (axial images 17 through 45). A large amount of fluid is seen within the subacromial/subdeltoid bursa, extending to the proximal arm. No unexpected area of postcontrast enhancement is seen. No acute osseous process is evident. No Marni is clearly identified. CT/Extremity Upper W/WO Contrast IMPRESSION: 1. Large amount of fluid within the subacromial/subdeltoid bursa, extending to the proximal arm. 2. Prominent areas of calcification in the subcutaneous tissues of the left arm. 3. Degenerative changes as noted. One or more dose reduction techniques were used (e.g., Automated exposure control, adjustment of the mA and/or kV according to patient size, use of iterative reconstruction technique). Reading Location: [address] CC: Dr. Edmundo Cruz MD; Dr. Dylan Coronado DO Tia Upper Trimmer: Signed [facility]02-25-2025 Telephone encounter Note* Telephone Encounter - Rosy Oorsco RN - 06/07/2024 10:36 AM EST Call placed to Pt - name & verified. Pt notified of below notation per Dr. Lomeli; she voices understanding. Rosy Orosco RN June 07, 2024 10:36 AM [facility]02-[facility] Miscellaneous Notes* Telephone Encounter - Rosy Orosco RN - 06/07/2024 10:36 AM EST Call placed to Pt - name & verified. Pt notified of below notation per Dr. Lomeli; she voices understanding. Rosy Orosco RN June 07, 2024 10:36 AM * Telephone Encounter - Narcisa Lomeli MD - 06/03/2024 12:56 PM EST Please advise patient to start taking high dose Vit D3 weekly. Prescription sent to pharmacy documented in this encounterKe[facility]02-[facility]25 Telephone encounter Note * Telephone Encounter - Narcisa Lomeli MD - 06/03/2024 12:56 PM EST Please advise patient to start taking high dose Vit D3 weekly. Prescription [facility] to pharmacy [facility] Telephone encounter Note* Telephone Encounter - Lacey Shelton RN - 05/20/2024 4:27 PM EST Pt called and is notified of providers message. Pt voices understanding. Lacey Shelton RN [facility]02-07-[facility] Miscellaneous Notes* Telephone Encounter - Lacey Shelton RN - 05/20/2024 4:27 PM EST Pt called and is notified of providers message. Pt voices understanding. Lacey Shelton RN * Telephone Encounter - Edmundo Cruz MD - 05/20/2024 4:21 PM EST OK to refill as ordered Edmundo Cruz MD * Telephone Encounter - Kimi Galvin - 05/20/2024 3:38 PM EST Prescription Refill Information The patient has been identified by name and date of : Yes Caregiver verified no other encounters exist for this prescription request: Yes Caregiver confirmed with patient/requestor that no other refills are due, in the near future, with this provider at this time: Yes The last office visit in the department: 03-07-24 Does the patient have a future office visit with this provider/department: Yes apixaban (ELIQUIS) 5 mg tab(s) 180 tablet 3 04/14/2023 04/13/2024 Sig: Take 1 tablet by mouth two times a day. Sent to pharmacy as: apixaban (ELIQUIS) 5 mg tab(s) Class: Normal Route: ORAL Kimi Ochoa Mikel [facility] May 20, 2024 3:39 PM documented in this encounterKeen[facility]02-[facility]-2025 Telephone encounter Note * Telephone Encounter - Edmundo Cruz MD - 05/20/2024 4:21 PM EST OK to refill as ordered Edmundo Cruz MD [facility] Telephone encounter Note* Telephone Encounter - Kimi Galvin - 05/20/2024 3:38 PM EST Prescription Refill Information The patient has been identified by name and date of : Yes Caregiver verified no other encounters exist for this prescription request: Yes Caregiver confirmed with patient/requestor that no other refills are due, in the near future, with this provider at this time: Yes The last office visit in the department: 03-07-24 Does the patient have a future office visit with this provider/department: Yes apixaban (ELIQUIS) 5 mg tab(s) 180 tablet 3 04/14/2023 04/13/2024 Sig: Take 1 tablet by mouth two times a day. Sent to pharmacy as: apixaban (ELIQUIS) 5 mg tab(s) Class: Normal Route: ORAL Kimikel Morin Pss May 20, 2024 3:39 PM [facility] Work Phone: [phone]) 151-508201-24-2025 Telephone encounter Note* Telephone Encounter - Lucy Hicks - 05/06/2024 10:59 AM EST [facility] called back and rescheduled patients echo from 05/16/24 to 01/11/25 @ 10:00, The order stated to have this done closer to the end of the year. I did call patient to notify her of the change. She verbalized her understanding. Lucy Hicks [facility]01-24-[facility] Miscellaneous Notes* Telephone Encounter - Lucy Hicks - 05/06/2024 10:59 AM EST [facility] called back and rescheduled patients echo from 05/16/24 to 01/11/25 @ 10:00, The order stated to have this done closer to the end of the year. I did call patient to notify her of the change. She verbalized her understanding. Lucy Hicks documented in this encounterKeenan [facility] Hospital01-24-2025 Telephone encounter Note * Telephone Encounter - Lucy Hicks - 05/06/2024 9:16 AM EST I called to notify patient that her echo is scheduled at [facility] on 05/16/24 @ 1:00. She isto report to the [address] [place] [address] diagnostic center. Order was faxed to [phone]. Lucy Hicks [facility]01-[facility] Miscellaneous Notes* Telephone Encounter - Lucy Hicks - 05/06/2024 9:16 AM EST I called to notify patient that her echo is scheduled at [facility] on 05/16/24 @ 1:00. She isto report to the [address] [place] [address] diagnostic center. Order was faxed to [phone]. Lucy Hicks documented in this encounterKeenan [facility] Hospital01-23-2025 History of Present illness Narrative* Jerri Draper MD - 05/05/2024 2:00 PM EST Images from the original note were not included. [facility] [place] Samara Palma Department of Cardiovascular Medicine SECTION OF CARDIAC PACING and ELECTROPHYSIOLOGY OUTPATIENT VISIT DATE May 05, 2024 OUTPATIENT VISIT TYPE NEW PRIMARY CARE PHYSICIAN: Edmundo Cruz [address] [place] [address] REFERRING PHYSICIAN: Jerri Draper [address] [facility] [address] CHIEF COMPLAINT: FU pacemaker - battery change ; device check today shows still has 1 year. HISTORY OF PRESENT ILLNESS: Ms. Albright is a 73 year old female known to Dr De La Rosa with history of coronary artery disease s/p CABG 2013, pAF, NSVT and complete heart block s/p IMCU NURSE-P ([employer] by Dr Ayala) implantationin 2014. She is 100% BiV paced. Her device has reached AMMON and requires a generator replacement. On Apixaban. (Prior history of GI bleed on Rivaroxaban). Her other important medical history included multiple sclerosis. Her recent nuclear stress test was unremarkable. Been well. No shortness of breath or chest pain. No dizziness and no syncope. No issues with the pacemaker. No orthopnea, no PND Uses CPAP for REBECCA. No bleeding issues currently. Uses LWF, no falls. 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 11/19/2015 BBB (bundle branch block) CAD (coronary artery disease) 07/2013 non-STMI/CABG CHB (complete heart block) (HCC) Congestive heart failure (HCC) GERD (gastroesophageal reflux disease) hiatal hernia History of DVT (deep vein thrombosis) 09/14/2015 History of rectal polypectomy 07/2011 Hyperlipidemia Hypertension Iron deficiency anemia Multiple sclerosis (HCC) Neuropathic pain Legs>arms from MS REBECCA (obstructive sleep apnea) on CPAP Pacemaker Pulmonary embolism (HCC) 07/2013 during hospitalization for [place] Vitamin D deficiency PAST SURGICAL HISTORY Procedure Laterality Date APPENDECTOMY BIVENTICULAR PACEMAKER INSERTION 09/05/2014 [employer] CABG (2) VEIN GRAFTS & ARTERIAL GRAFT(S 07/22/2013 THURMAN to LAD and Dx CARPAL TUNNEL COLONOSCOPY 08/01/2011 5mm rectal polyp COLONOSCOPY 12/05/2015 rectal polyp (adenoma) and diverticulosis CYSTOSCOPY 09/21/2018 EGD 07/17/2011 sliding hiatal hernia EGD 11/19/2015 Dr. Lema- HEART CATHETERIZATION 01/29/2016 HEART CATHETERIZATION 07/21/2013 The patient was advised a cardiothoracic consultation for coronary artery bypass surgery. Mid and distal LAD has severe disease. This is not suitable for percutaneous intervention and it is a bifurcation lesion. 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 Thiago Verdugo REMV CATARACT EXTRACAP,INSERT LENS Left 04/16/2017 Dr. Das ROTATOR CUFF REPAIR Right TOTAL ABDOM HYSTERECTOMY 1982 VENA CAVA FILTER INSERTION 08/16/2013 SOCIAL HISTORY Social History Tobacco Use Smoking status: Former Current packs/day: 1.00 Average packs/day: 1 pack/day for 20.0 years (20.0 ttl pk-yrs) Types: Cigarettes Passive exposure: Past Smokeless tobacco: Never Tobacco comments: Quit around 1995 Vaping Use Vaping status: Never Used Substance Use Topics Alcohol use: Not Currently Comment: occ Drug use: Never FAMILY HISTORY Problem Relation Age of Onset Diabetes Mother Coronary Artery Disease Mother NE's Cancer Father Heart Sister NE's, valve replaced Stroke Sister Ovarian cancer Sister Multiple Sclerosis Sister Hypertension Sister Coronary Artery Disease Brother 2 brothers CABG Aneurysm Brother Calcium Disorder No Family History Parathyroid Disease No Family History Osteoporosis No Family History ALLERGIES: ALLERGIES Allergen Reactions Glatiramer Rash, Itching MEDICATIONS: cholecalciferol, vitamin D3, (VITAMIN D3 ORAL) Take 1 tablet by mouth once every month. OTC - Pt unsure of dose pravastatin (PRAVACHOL) 40 mg tablet Take 1 tablet by mouth daily at bedtime. losartan (COZAAR) 50 mg tablet Take 1 tablet by mouth once daily. spironolactone (ALDACTONE) 25 mg tablet Take 1 tablet by mouth once daily. magnesium oxide (MAGOX) 400 mg (241.3 mg magnesium) tablet Take 1 tablet by mouth two times a day. carvedilol (COREG) 25 mg tablet Take 0.5 tablets by mouth two times a day. esomeprazole (NEXIUM) 40 mg capsule Take 1 capsule by mouth daily before breakfast. 1/2 hr before meal. fenofibrate nanocrystallized (TRICOR) 145 mg tablet Take 1 tablet by mouth once daily. DULoxetine (CYMBALTA) 60 mg capsule Take 60 mg by mouth two times a day. VUMERITY 231 mg capsule, delayed release Take 462 mg by mouth two times a day. Dr. Clemente dimethyl fumarate (TECFIDERA) [address] Take 1 capsule by mouth twice daily. SYMBICORT 160-4.5 mcg/actuation inhaler Inhale 2 Puffs as instructed twice daily as needed. gabapentin (NEURONTIN) 800 mg tablet Take 800 mg by mouth three times a day. ALBUTEROL SULFATE HFA INHALATION Inhale 2 Puffs as instructed every 4 hours as needed. baclofen (LIORESAL) 20 mg tablet Take by [...] 325 mg by mouth daily with breakfast. Recent changes to Duloxetine so taking it 120mg BID Also taking Apixaban BID. PHYSICAL EXAMINATION: BP 137/78 (BP Site: Right Arm, BP Position: Sitting, BP Cuff Size: Regular Adult) Pulse 85 Ht 157.5 cm (5' 2") Wt 104.3 kg (230 lb) SpO2 93% BMI 42.07 kg/m Alert, no respiratory distress at rest Uses a LWF Chest clear Soft HS Abdo SNT Calves soft, no significant pitting edema IMCU NURSE-P site looks good, no tenderness or erythema CARDIOVASCULAR MEDICINE TESTING: Electrocardiogram: SR with BiVP 89bpm I have personally reviewed the Electrocardiogram, Chest X-ray, Laboratory Testing, and Echocardiogram. Assessment IMPRESSION: Ms. Albright is a 73 year old female known to Dr De La Rosa, has a history of ischemic heart disease s/p CABG 2013 and pAF, NSVT. She has complete heart block s/p [employer] IMCU NURSE-P 2014 (Dr Ayala) -she presents today for a device FU. Still has 1 year remaining on device check today. PLAN AND RECOMMENDATIONS: Generator replacement when reach AMMON - will need repeat echo prior Echo- non urgent; requested for next 7-8 months in preparation for battery change Jerri Draper, MBChB, FRACP, FHRS, FACC Staff Bioprocessing Manufacturing Technician, Cardiac Electrophysiology and Pacing Section Department of Cardiovascular Medicine Heart, Vascular and Thoracic [facility] documented in this [facility] NoteHNO ID: [id number] Author: JERRI DRAPER MD Service: ? Author Type: Physician Type: Progress Notes Filed: 05/05/2024 14:44 Note Text: Heart and Vascular [place] [facility] Department of Cardiovascular Medicine SECTION OF CARDIAC PACING and ELECTROPHYSIOLOGY OUTPATIENT VISIT DATE May 05, 2024 OUTPATIENT VISIT TYPE NEW PRIMARY CARE PHYSICIAN: Edmundo Cruz [address] [id number] REFERRING PHYSICIAN: Jerri Draper [address] [id number] CHIEF COMPLAINT: FU pacemaker - battery change ; device check today shows still has 1 year. HISTORY OF PRESENT ILLNESS: Ms. Albright is a 73 year old female known to Dr De La Rosa with history of coronary artery disease s/p CABG 2013, pAF, NSVT and complete heart block s/p IMCU NURSE-P ([employer] by Dr Ayala) implantation in 2014. She is 100% BiV paced. Her device has reached AMMON and requires a generator replacement. On Apixaban. (Prior history of GI bleed on Rivaroxaban). Her other important medical history included multiple sclerosis. Her recent nuclear stress test was unremarkable. Been well. No shortness of breath or chest pain. No dizziness and no syncope. No issues with the pacemaker. No orthopnea, no PND Uses CPAP for REBECCA. No bleeding issues currently. Uses LWF, no falls. 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 11/19/2015 BBB (bundle branch block) CAD (coronary artery disease) 07/2013 non-STMI/CABG CHB (complete heart block) (HCC) Congestive heart failure (HCC) GERD (gastroesophageal reflux disease) hiatal hernia History of DVT (deep vein thrombosis) 09/14/2015 History of rectal polypectomy 07/2011 Hyperlipidemia Hypertension Iron deficiency anemia Multiple sclerosis (HCC) Neuropathic pain Legs>arms from MS REBECCA (obstructive sleep apnea) on CPAP Pacemaker Pulmonary embolism (HCC) 07/2013 during hospitalization for NE Vitamin D deficiency PAST SURGICAL HISTORY Procedure Laterality Date APPENDECTOMY BIVENTICULAR PACEMAKER INSERTION 09/05/2014 [employer] CABG (2) VEIN GRAFTS AND ARTERIAL GRAFT(S 07/22/2013 THURMAN to LAD and Dx CARPAL TUNNEL COLONOSCOPY 08/01/2011 5mm rectal polyp COLONOSCOPY 12/05/2015 rectal polyp (adenoma) and diverticulosis CYSTOSCOPY 09/21/2018 EGD 07/17/2011 sliding hiatal hernia EGD 11/19/2015 Dr. Lema- HEART CATHETERIZATION 01/29/2016 HEART CATHETERIZATION 07/21/2013 The patient was advised a cardiothoracic consultation for coronary artery bypass surgery. Mid and distal LAD has severe disease. This is not suitable for percutaneous intervention and it is a bifurcation lesion. 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 Das [facility] REMV CATARACT EXTRACAP,INSERT LENS Left 04/16/2017 Dr. Das ROTATOR CUFF REPAIR Right TOTAL ABDOM HYSTERECTOMY 1983 VENA CAVA FILTER INSERTION 08/16/2013 SOCIAL HISTORY Social History Tobacco Use Smoking status: Former Current packs/day: 1.00 Average packs/day: 1 pack/day for 20.0 years (20.0 ttl pk-yrs) Types: Cigarettes Passive exposure: Past Smokeless tobacco: Never Tobacco comments: Quit around 1995 Vaping Use Vaping status: Never Used Substance Use Topics Alcohol use: Not Currently Comment: occ Drug use: Never FAMILY HISTORY Problem Relation Age of Onset Diabetes Mother Coronary Artery Disease Mother NE's Cancer Father Heart Sister NE's, valve replaced Stroke Sister Ovarian cancer Sister Multiple Sclerosis Sister Hypertension Sister Coronary Artery Disease Brother 2 brothers CABG Aneurysm Brother Calcium Disorder No Family History Parathyroid Disease No Family History Osteoporosis No Family History ALLERGIES: ALLERGIES Allergen Reactions Glatiramer Rash, Itching MEDICATIONS: cholecalciferol, vitamin D3, (VITAMIN D3 ORAL) Take 1 tablet by mouth once every month. OTC - Pt unsure of dose pravastatin (PRAVACHOL) 40 mg tablet Take 1 tablet by mouth daily at bedtime. losartan (COZAAR) 50 mg tablet Take 1 tablet by mouth once daily. spironolactone (ALDACTONE) 25 mg tablet Take 1 tablet by mouth once daily. magnesium oxide (MAGOX) 400 mg (241.3 mg magnesium) tablet Take 1 tablet by mouth two times a day. carvedilol (COREG) 25 mg tablet Take 0.5 tablets by mouth two times a day. esomeprazole (NEXIUM) 40 mg capsule Take 1 capsule by mouth daily before breakfast. 1/2 hr before meal. fenofibrate nanocrystallized (TRICOR) 145 mg tablet Take 1 tablet by mouth once daily. DULoxetine (CYMBALTA) 60 mg capsule Take 60 mg by mouth two times a day. VUMERITY 231 mg capsule, delayed release Take 462 mg by mouth two times a day. Dr. Clemente dimethyl fumarate (TECFIDERA) [address] Take 1 capsule by mouth twice (more content not included)...[facility]12-16-2024 Telephone encounter Note* Telephone Encounter - Cristine Felipe LPN - 03/28/2024 2:59 PM EST Rebecca Wagner calling from Lab services. Patient Normalized Calcium 1.55 Calcium Ionized 1.56 Cristine Felipe LPN [facility]12-16-[facility] Miscellaneous Notes* Telephone Encounter - Cristine Felipe LPN - 03/28/2024 2:59 PM EST Rbeecca Wagner calling from Lab services. Patient Normalized Calcium 1.55 Calcium Ionized 1.56 Cristine Felipe LPN documented in this encounterKe[facility]12-16-[facility]24 Instructions* Patient Instructions* Narcisa Lomeli MD - 03/28/2024 8:44 AM EST Do labs today Regarding the calcium, postmenopausal women need to get adequate calcium from dietary intake (approximately 1200 mg daily). I have included a list below of foods and how much calcium they contain so that you can estimate how much you are getting from your food intake. Food Calcium, milligrams Milk (skim, 2 percent, or whole, 8 oz [240 mL]) 300 Yogurt (6 oz [168 g]) 250 Island juice (with calcium, 8 oz [240 mL]) 300 Tofu with calcium (1/2 cup [113 g]) 435 Cheese (1 oz [28 g]) (hard cheese = higher calcium) 95 to 335 Cottage cheese (1/2 cup [113 g]) 130 Ice cream or frozen yogurt (1/2 cup [113 g]) 100 Soy milk (8 oz [240 mL]) 300 Beans (1/2 cup cooked [113 g]) 60 to 80 Dark, leafy green vegetables (1/2 cup cooked [113 g]) 50 to 135 Almonds (24 whole) 70 Island (1 medium) 60 Follow up in 2 months to discuss further steps once you have been taking adequate calcium as discussed today documented in this encounterKe[facility]12-16-2024 NoteHNO ID: [id number] Author: NARCISA LOMELI MD Service: ? Author Type: Physician Type: Progress Notes Filed: 03/28/2024 11:21 Note Text: Endocrinology and Metabolism [place] [facility] Visit Note NAME: Jenni Albright is a 73 year old old female PCP: Edmundo Cruz MD Requesting Provider: Deion Russell APRN. CHILDB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 [id number] [facility] [id number] My final recommendations will be communicated back to the requesting provider by way of shared medical record or letter via [place] mail. Chief Complaint: Hypercalcemia, elevated PTH History of Present Illness: Jenni Albright is a 73 year old old female presenting with hypercalcemia. She is accompanied by her She has had high calcium for over 3 years, but reports she was not aware of this Has a hx of MS Personal history of kidney stones: no Personal history of fractures: None Family history of osteoporosis: no Height loss: unknown Weight <127 lbs: No Prior radiation to the neck: no Personal history of thyroid disease: no Family history of calcium issues, thyroid or parathyroid disease: no Calcium Intake: Patient eats ~1 serving of calcium/day- 1 yogurt cup every morning, denied any other calcium foods Patient takes multivitamins, but no separate calcium supplements or tums Vitamin D Intake: Patient takes VitD supplements- 1 tablet every month as per medication list- however she could not tell me the dose of this medication No recent or prolonged steroid use Smoking: Ex-smoker- remote hx Alcohol: occasionally Exercise: no regular exercise program History of falls: reports her legs give out sometimes due to MS, and has falls occasionally Menopause at age: 40s, she had partial hysterectomy due to large tumor on the uterus, surgical pathology was benign HRT: No No hx of cancer or radiation therapy Denied any steroid use, use of lithium or HCTZ in the past Has constipation for several years, and this is baseline for her Denied any symptoms at this time include anorexia, N/V, polyuria, polydipsia, blood in urine, bone pains PAST MEDICAL HISTORY Diagnosis Date Back pain [...] Pulmonary embolism (HCC) 07/2013 during hospitalization for NE Vitamin D deficiency PAST SURGICAL HISTORY Procedure [...] FAMILY HISTORY Problem Relation Age of Onset Diabetes Mother Coronary Artery Disease Mother NE's Cancer Father Heart Sister NE's, valve replaced Stroke Sister Ovarian cancer Sister Multiple Sclerosis Sister Hypertension Sister Coronary Artery Disease Brother 2 brothers CABG Aneurysm Brother Calcium Disorder No Family History Parathyroid Disease No Family History Osteoporosis No Family History ALLERGIES Allergen Reactions Glatiramer Rash, Itching Social History Tobacco Use Smoking status: Former Current packs/day: 1.00 Average packs/day: 1 pack/day for 20.0 years (20.0 ttl pk-yrs) Types: Cigarettes Passive exposure: Past Smokeless tobacco: Never Tobacco comments: Quit around 1995 Vaping Use Vaping status: Never Used Substance Use Topics Alcohol use: Yes Comment: occ Drug use: Never Current Outpatient Medications Medication Sig predniSONE (DELTASONE) 10 mg tablet Take 10 mg by mouth once daily. pravastatin (PRAVACHOL) 40 mg tablet Take 1 tablet by mouth daily at bedtime. losartan (COZAAR) 50 mg tablet Take 1 tablet by mouth once daily. spironolactone (ALDACTONE) 25 mg tablet Take 1 tablet by mouth once daily. magnesium oxide (MAGOX) 400 mg (241.3 mg magnesium) tablet Take 1 tablet by mouth two times a day. apixaban (ELIQUIS) 5 mg tab(s) Take 1 tablet by mouth two times a day. carvedilol (COREG) 25 mg tablet Take 0.5 tablets by mouth two times a day. esomeprazole (NEXIUM) 40 mg capsule Take 1 capsule by mouth daily before breakfast. 1/2 hr before meal. fenofibrate nanocrystallized (TRICOR) 145 mg tablet Take 1 tablet by mouth once daily. DULoxetine (CYMBALTA) 60 mg capsule Take 60 mg by mouth two times a day. VUMERITY 231 mg capsule, delayed release Mars (more content not included)... [facility]12-16-2024 History of Present illness Narrative* Narcisa Lomeli MD - 03/28/2024 8:31 AM EST Endocrinology and Metabolism [place] [facility] Visit Note NAME: Jenni Albright is a 73 year old old female PCP: Edmundo Cruz MD Requesting Provider: Deion Russell APRN. CHILDB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 [id number] [facility] [id number] My final recommendations will be communicated back to the requesting provider by way of shared medical record or letter via [place] mail. Chief Complaint: Hypercalcemia, elevated PTH History of Present Illness: Jenni Albright is a 73 year old old female presenting with hypercalcemia. She is accompanied by her She has had high calcium for over 3 years, but reports she was not aware of this Has a hx of MS Personal history of kidney stones: no Personal history of fractures: None Family history of osteoporosis: no Height loss: unknown Weight <127 lbs: No Prior radiation to the neck: no Personal history of thyroid disease: no Family history of calcium issues, thyroid or parathyroid disease: no Calcium Intake: Patient eats ~1 serving of calcium/day- 1 yogurt cup every morning, denied any other calcium foods Patient takes multivitamins, but no separate calcium supplements or tums Vitamin D Intake: Patient takes VitD supplements- 1 tablet every month as per medication list- however she could not tell me the dose of this medication No recent or prolonged steroid use Smoking: Ex-smoker- remote hx Alcohol: occasionally Exercise: no regular exercise program History of falls: reports her legs give out sometimes due to MS, and has falls occasionally Menopause at age: 40s, she had partial hysterectomy due to large tumor on the uterus, surgical pathology was benign HRT: No No hx of cancer or radiation therapy Denied any steroid use, use of lithium or HCTZ in the past Has constipation for several years, and this is baseline for her Denied any symptoms at this time include anorexia, N/V, polyuria, polydipsia, blood in urine, bone pains PAST MEDICAL HISTORY Diagnosis Date Back pain [...] Pulmonary embolism (HCC) 07/2013 during hospitalization for NE Vitamin D deficiency PAST SURGICAL HISTORY Procedure [...] FAMILY HISTORY Problem Relation Age of Onset Diabetes Mother Coronary Artery Disease Mother NE's Cancer Father Heart Sister NE's, valve replaced Stroke Sister Ovarian cancer Sister Multiple Sclerosis Sister Hypertension Sister Coronary Artery Disease Brother 2 brothers CABG Aneurysm Brother Calcium Disorder No Family History Parathyroid Disease No Family History Osteoporosis No Family History ALLERGIES Allergen Reactions Glatiramer Rash, Itching Social History Tobacco Use Smoking status: Former Current packs/day: 1.00 Average packs/day: 1 pack/day for 20.0 years (20.0 ttl pk-yrs) Types: Cigarettes Passive exposure: Past Smokeless tobacco: Never Tobacco comments: Quit around 1995 Vaping Use Vaping status: Never Used Substance Use Topics Alcohol use: Yes Comment: occ Drug use: Never Current Outpatient Medications Medication Sig predniSONE (DELTASONE) 10 mg tablet Take 10 mg by mouth once daily. pravastatin (PRAVACHOL) 40 mg tablet Take 1 tablet by mouth daily at bedtime. losartan (COZAAR) 50 mg tablet Take 1 tablet by mouth once daily. spironolactone (ALDACTONE) 25 mg tablet Take 1 tablet by mouth once daily. magnesium oxide (MAGOX) 400 mg (241.3 mg magnesium) tablet Take 1 tablet by mouth two times a day. apixaban (ELIQUIS) 5 mg tab(s) Take 1 tablet by mouth two times a day. carvedilol (COREG) 25 mg tablet Take 0.5 tablets by mouth two times a day. esomeprazole (NEXIUM) 40 mg capsule Take 1 capsule by mouth daily before breakfast. 1/2 hr before meal. fenofibrate nanocrystallized (TRICOR) 145 mg tablet Take 1 tablet by mouth once daily. DULoxetine (CYMBALTA) 60 mg capsule Take 60 mg by mouth two times a day. VUMERITY 231 mg capsule, delayed release Take 231 mg by mouth two times a day. Dr. Clemente dimethyl fumarate (TECFIDERA) [address] Take 1 capsule by mouth twice daily. SYMBICORT 160-4.5 mcg/actuation inhaler Inhale 2 Puffs as instructed twice daily as needed. gabapentin (NEURONTIN) 800 mg tablet Take 800 mg by mouth three times a day. ALBUTEROL SULFATE HFA INHALATION Inhale 2 Puffs as instructed every 4 hours as needed. baclofen (LIORESAL) 20 mg tablet Take by [...] 325 mg by mouth daily with breakfast. DULoxetine (CYMBALTA) 30 mg capsule take 1 capsule by mouth every day in the evening (Patient not taking: Reported on 03/28/2024) No current facility-administered medications for this visit. Review of Systems 10 point ROS was reviewed and negative unless indicated in the HPI Physical Exam: BP: 124/82 Pulse: 73 Resp: 20 SpO2: 94 % Body mass index is 41.34 kg/m . General: Comfortable, no obvious distress, using walker for ambulation Eyes: Sclera anicteric, no pallor Thyroid: Thyroid is normal in size and texture. No nodules palpated CV: Regular rhythm, normal rate. Resp: unlabored breathing on room air Skin: No rashes, lesions, or subcutaneous nodules, no striae Psych: Alert and orientated x 3. Extremities: No peripheral edema, no tenderness, no tremors Neuro: Moves all four extremities. No focal deficits on limited exam. LABS: Latest Reference Range & Units 10/19/12 08:51 05/16/13 09:38 03/20/14 10:49 09/14/15 09:15 11/02/15 10:10 06/15/17 11:16 10/13/17 14:47 04/08/18 10:56 04/04/19 10:11 04/02/20 08:54 08/14/20 10: 11:09 08/29/20 12:11 08/30/20 06:12 10/01/20 08:36 07/29/21 08:30 08/27/22 08:13 04/14/23 07:46 07/28/23 08:49 02/09/24 11:58 Sodium 136 - 144 mmol/L 141 143 139 138 140 137 143 134 (L) 132 (L) 142 141 143 141 142 144 138 [id number] 142 136 Potassium 3.7 - 5.1 mmol/L 4.0 4.1 4.8 4.3 4.8 4.5 4.2 4.2 4.8 3.8 3.9 3.8 3.7 4.1 4.4 4.6 4.5 4.5 4.6 4.5 Chloride 98 - 107 mmol/L 107 108 104 102 102 102 105 99 97 104 107 (H) 110 (H) 107 108 (H) 105 105 105 107 (H) 100 CO2 22 - 30 mmol/L 23 24 23 24 25 24 25 24 21 (L) 31 (H) 24 27.0 26.0 23 17 (L) 26 26 22 24 BUN 7 - 21 mg/dL 15 16 15 20 22 13 23 (H) 20 14 27 (H) 21 24 22 13 22 (H) 21 17 14 15 BUN/CREATININE RATIO 15 - 24 31 (H) 31 (H) Creatinine 0.58 - 0.96 mg/dL 0.70 0.75 0.82 1.15 1.18 0.88 0.91 0.88 0.77 0.83 0.81 0.77 0.72 0.75 0.71 0.74 0.76 0.72 0.66 Glucose 74 - 99 mg/dL 83 72 83 104 (H) 99 69 (L) 85 92 75 67 (L) 129 (H) 121 (H) 95 121 (H) 107 (H)79 109 (H) 101 (H) 77 Protein, Total 6.3 - 8.0 g/dL 7.4 7.6 7.4 7.9 7.1 7.0 7.0 5.9 (L) 6.5 7.4 7.7 6.7 6.8 7.1 6.8 Calcium 8.5 - 10.2 mg/dL 10.0 10.5 10.3 10.4 11.0 (H) 10.4 (H) 10.5 (H) 10.0 10.5 (H) 10.5 (H) 10.8(H) 11.0 (H) 10.7 (H) 11.1 (H) 11.1 (H) 11.2 (H) 10.8 (H) 11.3 (H) 11.7 (H) Ionized Calcium 1.08 - 1.30 mmol/L 1.38 (H) 1.66 (H) Normalized Calcium 1.08 - 1.30 mmol/L 1.56 (H) Magnesium 1.6 - 2.6 MG/DL 2.1 Albumin 3.9 - 4.9 g/dL 4.2 4.2 4.0 4.3 4.1 3.8 (L) 4.0 3.7 (L) 3.5 4.2 4.4 4.1 4.0 4.2 4.5 Bilirubin, Total 0.2 - 1.3 mg/dL 0.2 0.2 0.2 0.2 0.2 0.2 0.3 0.4 0.20 0.2 0.2 0.3 0.5 <0.2 (L) 0.4 Alkaline Phosphatase 34 - 123 U/L 76 92 80 45 47 56 50 53 75 66 65 68 77 86 85 ALT 7 - 38 U/L 11 16 15 26 17 20 23 61 (H) 32 28 30 26 29 26 29 AST 13 - 35 U/L 19 16 20 28 22 20 22 37 (H) 23 25 27 30 18 22 21 Anion Gap 8 - 15 mmol/L 11 11 12 12 13 11 13 11 14 7 (L) 10 6 9 13 16 9 10 13 12 GLOBULIN 2.2 - 4.2 GM/DL 3.0 eGFR- >60 >60 >60 57 55 >60 >60 >60 >60 >60 >60 Greater than 60 Greater than 60 >60 eGFR-All Other Races . >60 >60 >60 47 46 >60 >60 >60 >60 >60 >60 >60 eGFR >=60 mL/min/1.73m 90 86 82 88 92 Estimated GFR Greater than 60 Greater than 60 (L): Data is abnormally low (H): Data is abnormally high Latest Reference Range & Units 10/19/12 08:51 05/16/13 09:38 03/20/14 10:49 11/02/15 10:10 04/08/18 10:56 04/04/19 10:11 04/02/20 08:54 08/30/20 06:12 02/09/24 11:58 TSH 0.358 - 3.740 UIU/ML 3.976 (H) PTH, Intact 15 - 65 pg/mL 71 (H) Vitamin D 25 Hydroxy 31.0 - 80.0 ng/mL 30.5 (L) 30.0 (L) 25.1 (L) 32.7 29.3 (L) 28.1 (L) 29.1 (L) (H): Data is abnormally high (L): Data is abnormally low DXA: Not available Assessment & Plan: (E83.52) Hypercalcemia Elevated PTH She has had hypercalcemia atleast since 2020 We reviewed the current laboratory tests are consistent with a diagnosis of primary hyperparathyroidism. We discussed this condition in detail, its natural course including potential complications and indications for treatment. I discussed surgery can be a potential cure if surgical indications are met Her surgical indications include high calcium with highest calcium being 11.7 mg/dl. No other pertinent test available at this time I discussed optimizing calcium intake through diet preferably. List of calcium rich foods given. Discussed 2 to 3 months of taking 1000 mg of calcium daily, she will have to follow up and if consistent with calcium intake, we shall repeat labs and based on results, and we might consider 24 hr urinecalcium tests at the same time (this is because she reports she might not remember all the details after she leaves here) However we shall do some labs today for evaluating any other causes of hypercaclemia in addition, which can be posisble as a combination with secondary hyperparathyroidism If surgery is not preferable, we discussed monitoring with medical treatment of complications Follow up in 2 months Narcisa Lomeli MD Endocrinology Associate Staff [facility] Endocrinology and Metabolism [place] [phone] Medical Decision Making: Problems: Moderate: New problem with uncertain prognosis and 1+ chronic illnesses with change Data: Unique test result(s) reviewed: 3+ Unique test(s) ordered: 3+ Independent interpretation of test from other physician/QHCP Risk: High: High risk from testing/treatment Medical Decision Making Level: 5 - High documented in this encounterKe[facility]12-[facility] Evaluation note* Diagnosis Onset Date Resolution Status Admit Date Multiple sclerosis chronic Decemb er 2023 8:32am History of vitamin D deficiency resolved March 17 8:32am [facility] Work Phone: [phone] 417-592612-02-2024 History of Present illness Narrative* Taryn Torres, RT(R) - 03/14/2024 8:30 AM EST RADIOLOGY SERVICE PROGRESS NOTE SERVICE DATE: 03/14/2024 SERVICE TIME: 08:45 AM PATIENT IDENTITY VERIFICATION COMPLETED USING TWO (2) STANDARD IDENTIFIERS: Name and Date of confirmed by patient verbally FALL SCREENING: Has the patient had 2 falls in the last year or 1 fall with injury or currently using an Ambulatory Assistive Device (Walker, Cane, Wheelchair, Crutches, etc.)? Yes, Patient High Riskfor Falls What interventions were put in place to prevent falls during this visit? Instructed Patient to Callfor Help if Needed, Offered Assistance with Transfers/Clothing, Instructed Patient to Remain Seated(Not on Exam Table) Until Exam, Increased Observations by Caregivers, and Escorted to/from Restroom PATIENT GENDER DATA: .female : No ALLERGIES: Reviewed and unchanged MEDICATIONS REVIEWED: No PATIENT RELEVANT IMPLANT DATA REVIEWED: Not Applicable PATIENT PRESENTS WITH AN IMPLANTABLE OR ATTACHED CONTROL DIRECTOR: n/a CREATININE: Creatinine Date Value Ref Range Status 02/09/2024 0.66 0.58 - 0.96 mg/dL Final 07/28/2023 0.72 0.58 - 0.96 mg/dL Final 04/14/2023 0.76 0.58 - 0.96 mg/dL Final Estimated Glomerular Filtration Rate Date Value Ref Range Status 02/09/2024 92 >=60 mL/min/1.73m Final Comment: Estimated Glomerular Filtration Rate (eGFR) is calculated using the 2020 CKD-EPI creatinine equation. This equation utilizes serum creatinine, sex, and age as parameters. The creatinine assay has traceable calibration to isotope dilution- mass spectrometry. Refer to KDIGO guidelines for clinical interpretation. In patients with unstable renal function, e.g. those with acute kidney injury, the eGFRmay not accurately reflect actual GFR. eGFR- Date Value Ref Range Status 10/01/2020 >60 Final P.O.C.T. RESULTS: N/A March 14, [address] PERFORMED: No IV SITE: Ambulatory: A peripheral IV was started in the Right antecubital site with a Angio cath: 22 gauge. POST EXAM PIV STATUS: Discontinued PROCEDURE TYPE: NM Stress: 16.1 mCi [id number] was administered IV for Rest Imaging at 08:55 by Taryn Torres. 46.7 mCi [id number] was administered IV for Stress Imaging at 10:20 by Taryn Torres. PATIENT DISCHARGED TO: Ambulatory patient, left ID department area. Is this a therapy: No. SIGNATURE: MELISSA Flood) PATIENT NAME: Jenni Albright DATE: March 14, 2024 TIME: 1:28 PM PAGER/CONTACT #: documented in this encounterKe[facility] NoteHNO ID: [id number] Author: TARYN TORRES RT (R) Service: Nuclear Medicine Author Type: Technologist Type: Progress Notes Filed: 03/14/2024 13:30 Note Text: RADIOLOGY SERVICE PROGRESS NOTE SERVICE DATE: 03/14/2024 SERVICE TIME: 08:45 AM PATIENT IDENTITY VERIFICATION COMPLETED USING TWO (2) STANDARD IDENTIFIERS: Name and Date of confirmed by patient verbally FALL SCREENING: Has the patient had 2 falls in the last year or 1 fall with injury or currently using an Ambulatory Assistive Device (Walker, Cane, Wheelchair, Crutches, etc.)? Yes, Patient High Risk for Falls What interventions were put in place to prevent falls during this visit? Instructed Patient to Call for Help if Needed, Offered Assistance with Transfers/Clothing, Instructed Patient to Remain Seated (Not on Exam Table) Until Exam, Increased Observations by Caregivers, and Escorted to/from Restroom PATIENT GENDER DATA: .female : No ALLERGIES: Reviewed and unchanged MEDICATIONS REVIEWED: No PATIENT RELEVANT IMPLANT DATA REVIEWED: Not Applicable PATIENT PRESENTS WITH AN IMPLANTABLE OR ATTACHED CONTROL DIRECTOR: n/a CREATININE: Creatinine Date Value Ref Range Status 02/09/2024 0.66 0.58 - 0.96 mg/dL Final 07/28/2023 0.72 0.58 - 0.96 mg/dL Final 04/14/2023 0.76 0.58 - 0.96 mg/dL Final Estimated Glomerular Filtration Rate Date Value Ref Range Status 02/09/2024 92 >=60 mL/min/1.73m? Final Comment: Estimated Glomerular Filtration Rate (eGFR) is calculated using the 2020 CKD-EPI creatinine equation. This equation utilizes serum creatinine, sex, and age as parameters. The creatinine assay has traceable calibration to isotope dilution-mass spectrometry. Refer to KDIGO guidelines for clinical interpretation. In patients with unstable renal function, e.g. those with acute kidney injury, the eGFR may not accurately reflect actual GFR. eGFR- Date Value Ref Range Status 10/01/2020 >60 Final P.O.C.T. RESULTS: N/A March 14, [address] PERFORMED: No IV SITE: Ambulatory: A peripheral IV was started in the Right antecubital site with a Angio cath: 22 gauge. POST EXAM PIV STATUS: Discontinued PROCEDURE TYPE: NM Stress: 16.1 mCi [id number] was administered IV for Rest Imaging at 08:55 by Taryn Torres. 46.7 mCi [id number] was administered IV for Stress Imaging at 10:20 by Taryn Torres. PATIENT DISCHARGED TO: Ambulatory patient, left NM department area. Is this a therapy: No. SIGNATURE: RT Remigio(R) PATIENT NAME: Jenni Albright DATE: March 14, 2024 TIME: 1:28 PM PAGER/CONTACT #:[facility]11-27-2024 Telephone encounter Note* Telephone Encounter - Deena Reddy RN - 03/09/2024 10:00 AM EST Called and reviewed the below instructions with the patient. Deena Reddy RN You are scheduled for a stress test on 03/14/24 at 8:30am. This stress test will appear as 3 appointments on your schedule. You may get multiple reminder calls, but please arrive at the earliest scheduled appointment. Please follow below instructions: *NOTHING BY MOUTH 4 HOURS prior to this test. (you may have sips of water) *NO CAFFEINE FOR 24 HOURS PRIOR TO TESTING (including TEA even decaf, COFFEE- even decaf, CHOCOLATE, MAYANK- even decaf) *Do NOT take MEDICATIONS CONTAINING CAFFEINE/XANTHINE for 24 HOURS prior to testing: Theophylline, Trental, Excedrin, Anacin, Goody Powders, No Doz, Vivarin, Midol, Diurex, Fiorinal, Fioricet, Esgic (butalbital) *Do NOT take Calcium Channel Blockers 24 HOURS prior to test. *Do NOT take Beta blockers 24 HOURS prior to test UNLESS your doctor tells you otherwise. *Do NOT use the following medications 48 HOURS prior to this test: Viagra(Sildenafil citrate), Cialis(Tadalafil), Vardenafil (Levitra, Stanyx), Avanfil (Stendra). *Do not take any of these meds prior to test unless provider directs you otherwise; Nitroglycerine (ex:Deponit, Nitrostat) Isosorbide (ex:Isordil, Sorbitrate,Imdur,Ismo). Medications on your list you should hold for 24 HOURS: Coreg, nitro *All other medications may be taken as you normally would. *Guidelines for Diabetics: If you take insulin to control your blood sugar, ask you physician what amount you should take the day of the test. If you take pills to control blood sugar, on the day of the test, do NOT take them until AFTER the test. *FAILURE TO FOLLOW THESE INSTRUCTIONS WILL RESULT IN HAVING TO RESCHEDULE THE TEST. *If you use an inhaler, bring it along with you just in case *THIS TEST MAY TAKE UP TO 3 HOURS TO COMPLETE. Please check in on the first floor at Radiology: [address]; [place] [address] * If you need to cancel or reschedule this test or have any questions regarding this test, please call [phone]. [facility]11-27-2024 Miscellaneous Notes* Telephone Encounter - Deena Reddy RN - 03/09/2024 10:00 AM EST Called and reviewed the below instructions with the patient. Deena Reddy RN You are scheduled for a stress test on 03/14/24 at 8:30am. This stress test will appear as 3 appointments on your schedule. You may get multiple reminder calls, but please arrive at the earliest scheduled appointment. Please follow below instructions: *NOTHING BY MOUTH 4 HOURS prior to this test. (you may have sips of water) *NO CAFFEINE FOR 24 HOURS PRIOR TO TESTING (including TEA even decaf, COFFEE- even decaf, CHOCOLATE, MAYANK- even decaf) *Do NOT take MEDICATIONS CONTAINING CAFFEINE/XANTHINE for 24 HOURS prior to testing: Theophylline, Trental, Excedrin, Anacin, Goody Powders, No Doz, Vivarin, Midol, Diurex, Fiorinal, Fioricet, Esgic (butalbital) *Do NOT take Calcium Channel Blockers 24 HOURS prior to test. *Do NOT take Beta blockers 24 HOURS prior to test UNLESS your doctor tells you otherwise. *Do NOT use the following medications 48 HOURS prior to this test: Viagra(Sildenafil citrate), Cialis(Tadalafil), Vardenafil (Levitra, Stanyx), Avanfil (Stendra). *Do not take any of these meds prior to test unless provider directs you otherwise; Nitroglycerine (ex:Deponit, Nitrostat) Isosorbide (ex:Isordil, Sorbitrate,Imdur,Ismo). Medications on your list you should hold for 24 HOURS: Coreg, nitro *All other medications may be taken as you normally would. *Guidelines for Diabetics: If you take insulin to control your blood sugar, ask you physician what amount you should take the day of the test. If you take pills to control blood sugar, on the day of the test, do NOT take them until AFTER the test. *FAILURE TO FOLLOW THESE INSTRUCTIONS WILL RESULT IN HAVING TO RESCHEDULE THE TEST. *If you use an inhaler, bring it along with you just in case *THIS TEST MAY TAKE UP TO 3 HOURS TO COMPLETE. Please check in on the first floor at Radiology: [address]; [place] [address] * If you need to cancel or reschedule this test or have any questions regarding this test, please call [phone]. documented in this encounterKeenan [facility]11-25-2024 History of Present illness Narrative* Sophia Castillo APRN.CHILDB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 - 03/07/2024 8:40 AM EST This is a 73 year old female who presents today with: Patient presents with: F/U 6 Month HISTORY OF PRESENT ILLNESS: Jenni Albright is a 73 year old female. Patient presents with: F/U 6 Month 6 month follow up Elevated Calcium and PTH, has consult with endocrinology next month Foot Surgery: Had PIPJ fusion 2nd/3rd digits on right foot with Dr. Franco.Healed up without any issues. HTN/CHF: Follows with Cardiology, Dr. De La Rosa. Denies any chest pain, dizziness, or SOB. Not currently checking blood pressure at home. Taking Coreg 25 mg half pill BID, Losartan 50 mg daily, and Aldactone 25 mg daily. Has a pacemaker. Has stress test in March. PE & DVT: Is on Eliquis 5 mg BID. CAD/Lipid/Glucose: Taking Tricor 145 mg daily and Pravastatin 20 mg daily. Does not watch diet or exercise. MS: Taking Tecfidera 240 mg BID, Gabapentin 800 mg QID and Vumerity 231 mg 1 pill BID. No longer onRebif injections weekly. Follows with Neurology Dr. Clemente. REBECCA: Using CPAP nightly. Follows with Dr. Fernandez, Pulmonology. Gets supplies through [employer]. Vaccines: Would like flu vaccine Colonscopy: Denies wanting screening at this time. PAST MEDICAL HISTORY: PAST MEDICAL HISTORY Diagnosis [...] Pulmonary embolism (HCC) 07/2013 during hospitalization for NE Vitamin D deficiency PAST SURGICAL HISTORY Procedure Laterality Date CABG, ARTERIAL, TWO 07/22/13 THURMAN to LAD and Dx CARPAL TUNNEL CATARACT EXTRACTION HX Right 03/23/2017 Dr. Das Lucina CATARACT EXTRACTION HX Left 04/16/2017 Dr. Das COLONOSCOPY 08/01/2011 5mm rectal polyp COLONOSCOPY 12/05/2015 rectal polyp (adenoma) and diverticulosis EGD 07/17/2011 sliding hiatal hernia ENDOSCOPY PROC 11/19/15 Dr. Leam- HEART CATHETERIZATION ?1980s HYSTERECTOMY HX 1982 PACEMAKER ROTATOR CUFF REPAIR right ALLERGIES Glatiramer MEDICATIONS Current Outpatient Medications Medication Sig pravastatin (PRAVACHOL) 40 mg tablet Take 1 tablet by mouth daily at bedtime. losartan (COZAAR) 50 mg tablet Take 1 tablet by mouth once daily. spironolactone (ALDACTONE) 25 mg tablet Take 1 tablet by mouth once daily. magnesium oxide (MAGOX) 400 mg (241.3 mg magnesium) tablet Take 1 tablet by mouth two times a day. apixaban (ELIQUIS) 5 mg tab(s) Take 1 tablet by mouth two times a day. carvedilol (COREG) 25 mg tablet Take 0.5 tablets by mouth two times a day. esomeprazole (NEXIUM) 40 mg capsule Take 1 capsule by mouth daily before breakfast. 1/2 hr before meal. fenofibrate nanocrystallized (TRICOR) 145 mg tablet Take 1 tablet by mouth once daily. DULoxetine (CYMBALTA) 30 mg capsule take 1 capsule by mouth every day in the evening DULoxetine (CYMBALTA) 60 mg capsule VUMERITY 231 mg capsule, delayed release Twice [...] Father Diabetes Mother Coronary Artery Disease Mother NE's Coronary Artery Disease Brother 2 brothers CABG Aneurysm Brother Heart Sister NE's, valve replaced Stroke Sister Ovarian cancer Sister Multiple Sclerosis Sister Hypertension Sister Social History Tobacco Use Smoking status: Former Current packs/day: 1.00 Average packs/day: 1 pack/day for 20.0 years (20.0 ttl pk-yrs) Types: Cigarettes Smokeless tobacco: Never Tobacco comments: Quit around 1995 Vaping Use Vaping status: Never Used Substance Use Topics Alcohol use: Yes Comment: occ Drug use: Never REVIEW OF SYSTEMS GENERAL: No weight loss, [...] depression, anxiety, or suicidal ideation. EXAM: BP 104/76 Pulse 90 Resp 16 Wt 102.1 kg (225 lb 1.4 oz) SpO2 95% BMI 41.17 kg/m PHYSICAL EXAM: General Appearance: Well appearing, alert, in no acute distress, well-hydrated, well nourished. Skin: Skin color, texture, turgor normal, no suspicious rashes or lesions. Head: Normocephalic, no masses, lesions, tenderness or abnormalities. Eyes: Anicteric sclera. Extraocular movements are intact. Lungs: Lungs clear to auscultation. No wheezing, rhonchi, rales. Heart: RRR without murmur, gallop, or rubs. No ectopy. Extremities: No deformities, edema, skin discoloration, clubbing or cyanosis. Good capillary refill. Peripheral Pulses: Normal, Capillary refill <2secs, strong peripheral pulses, Pulses palpable. Neurologic: Gait normal. Sensation grossly intact. ASSESSMENT/PLAN: 1. Essential hypertension - ICD9: 401.9, ICD10: I10 (primary diagnosis) - Controlled - Continue current medications - Recommend home blood pressure monitoring, to bring results to next visit - Encouraged sodium restriction, DASH or Mediterranean diet - Recommend regular aerobic exercise - Discussed need for and benefit of weight loss. BMI 41.17 kg/(m^2) 2. Coronary artery disease involving [place] coronary artery of [place] heart without angina pectoris- ICD9: 414.01, ICD10: I25.10 - Stable, continue to take current medication. - Keep scheduled appointments with cardiology. 3. Congestive heart failure, unspecified HF chronicity, unspecified heart failure type (HCC) - ICD9: 428.0, ICD10: I50.9 -Same plan as #2. 4. Hyperlipidemia, unspecified hyperlipidemia type - ICD9: 272.4, ICD10: E78.5 - Controlled - Continue current medications - Counseled on healthy diet and regular exercise - Discussed need for and benefit of weight loss. BMI 41.17 kg/(m^2) - COMPREHENSIVE METABOLIC PANEL - LIPID PANEL BASIC 5. History of DVT (deep vein thrombosis) - ICD9: V12.51, ICD10: Z86.718 - Stable, continue to take current medication. 6. REBECCA (obstructive sleep apnea) - ICD9: 327.23, ICD10: G47.33 - Stable, continue with CPAP 7. Elevated glucose - ICD9: 790.29, ICD10: R73.09 - Instructed to work on eating a low carb diet - Get repeat labs in 6 months. - HEMOGLOBIN A1C 8. Multiple sclerosis (HCC) - ICD9: 340, ICD10: G35 - Stable, continue to take current medication. - Keep scheduled appointments with neurology. 9. Encounter for immunization - ICD9: V03.89, ICD10: Z23 - VIS provided. - INFLUENZA VACCINE, PRSV FREE, AGE 65+ YR, HIGH DOSE, TRIVALENT (FLUZONE HIGH-DOSE) 10. Screening for depression - ICD9: V79.0, ICD10: Z13.31 - DEPRESSION SCREENING 11. Encounter for screening examination for other mental health and behavioral disorders - ICD9: V79.8, ICD10: Z13.39 - ANXIETY SCREENING Follow-up in 6 months or sooner as needed. Discussed treatment plan and patient voices understanding. Patient's questions answered appropriately. Medications and potential side effects were discussed and patient voices understanding. Sophia Castillo APRN.QUINT[place] This note was partially generated using Zouxiu voice recognition system. Note was reviewed for accuracy. There may be minor misspellings or grammar miscues with Zouxiu voice recognition. documented in this encounterCleoh[facility] [id number] NoteHNO ID: [id number] Author: SOPHIA CASTILLO APRN.CHILDB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 Service: ? Author Type: Nurse Practitioner Type: Progress Notes Filed: 03/07/2024 09:20 Note Text: This is a 73 year old female who presents today with: Patient presents with: F/U 6 Month HISTORY OF PRESENT ILLNESS: Jenni Albright is a 73 year old female. Patient presents with: F/U 6 Month 6 month follow up Elevated Calcium and PTH, has consult with endocrinology next month Foot Surgery: Had PIPJ fusion 2nd/3rd digits on right foot with Dr. Franco.Healed up without any issues. HTN/CHF: Follows with Cardiology, Dr. De La Rosa. Denies any chest pain, dizziness, or SOB. Not currently checking blood pressure at home. Taking Coreg 25 mg half pill BID, Losartan 50 mg daily, and Aldactone 25 mg daily. Has a pacemaker. Has stress test in March. PE AND DVT: Is on Eliquis 5 mg BID. CAD/Lipid/Glucose: Taking Tricor 145 mg daily and Pravastatin 20 mg daily. Does not watch diet or exercise. MS: Taking Tecfidera 240 mg BID, Gabapentin 800 mg QID and Vumerity 231 mg 1 pill BID. No longer on Rebif injections weekly. Follows with Neurology Dr. Clemente. REBECCA: Using CPAP nightly. Follows with Dr. Fernandez, Pulmonology. Gets supplies through [employer]. Vaccines: Would like flu vaccine Colonscopy: Denies wanting screening at this time. PAST MEDICAL HISTORY: PAST MEDICAL HISTORY Diagnosis [...] Pulmonary embolism (HCC) 07/2013 during hospitalization for NE Vitamin D deficiency PAST SURGICAL HISTORY Procedure [...] Glatiramer MEDICATIONS Current Outpatient Medications Medication Sig pravastatin (PRAVACHOL) 40 mg tablet Take 1 tablet by mouth daily at bedtime. losartan (COZAAR) 50 mg tablet Take 1 tablet by mouth once daily. spironolactone (ALDACTONE) 25 mg tablet Take 1 tablet by mouth once daily. magnesium oxide (MAGOX) 400 mg (241.3 mg magnesium) tablet Take 1 tablet by mouth two times a day. apixaban (ELIQUIS) 5 mg tab(s) Take 1 tablet by mouth two times a day. carvedilol (COREG) 25 mg tablet Take 0.5 tablets by mouth two times a day. esomeprazole (NEXIUM) 40 mg capsule Take 1 capsule by mouth daily before breakfast. 1/2 hr before meal. fenofibrate nanocrystallized (TRICOR) 145 mg tablet Take 1 tablet by mouth once daily. DULoxetine (CYMBALTA) 30 mg capsule take 1 capsule by mouth every day in the evening DULoxetine (CYMBALTA) 60 mg capsule VUMERITY 231 mg capsule, delayed release Twice [...] Father Diabetes Mother Coronary Artery Disease Mother NE's Coronary Artery Disease Brother 2 brothers CABG Aneurysm Brother Heart Sister NE's, valve replaced Stroke Sister Ovarian cancer Sister Multiple Sclerosis Sister Hypertension Sister Social History Tobacco Use Smoking status: Former Current packs/day: 1.00 Average packs/day: 1 pack/day for 20.0 years (20.0 ttl pk-yrs) Types: Cigarettes Smokeless tobacco: Never Tobacco comments: Quit around 1995 Vaping Use Vaping status: Priyanka (more content not included)...[facility] 03-07-2024 Instructions* Patient Instructions* Sophia Castillo APRN.CNP - 03/07/2024 8:15 AM EST Keep scheduled appointment with Endocrinology Get repeat fasting labs in 6 months prior to next visit Work on eating a low carb diet, increase proteins, veggies, and stay active. Continue to take all medication as prescribed. Keep scheduled appointments with specialists Flu vaccine given today Follow up in 6 months Condiments: Shilo Louise documented in this [facility]Ke[facility]11-08-2024 Telephone encounter Note * Telephone Encounter - Millie Reardon - 02/19/2024 10:43 AM EST I called and patient and she excepted the appointment on 05/05/24 @ 2:00 and device.Millie Reardon [facility]11-08-20[facility] Miscellaneous Notes* Telephone Encounter - Millie Reardon - 02/19/2024 10:43 AM EST I called and patient and she excepted the appointment on 05/05/24 @ 2:00 and device.Millie Reardon * Telephone Encounter - Miko Aguirre RN - 02/18/2024 4:07 PM EST Reviewed with Dr. Ayala. Please offer an appointment with Dr. Draper on 05/05/2023 at 2:00 pm for evaluation. If Ms. Albright accepts this appointment, please add her to the [facility] schedule as well. Miko Aguirre RN February 18, 2024 4:08 PM * Telephone Encounter - Miko Aguirre RN - 02/18/2024 4:05 PM EST Device check dated 12/09/2023 and previously scanned to chart indicated about one year until [facility]. Previous device check dated 05/21/2023 and also scanned to chart indicated 2.5 yrs until [facility]. Miko Aguirre RN February 18, 2024 4:07 PM * Telephone Encounter - Millie Reardon - 02/18/2024 3:12 PM EST Please see previous note and advise.Millie Reardon * Telephone Encounter - Tami Baker - 02/18/2024 12:28 PM EST Patient called stating that her last appt w/ Dr. De La Rosa, he told her to schedule an appt w/ Dr. Ayala because it is about time for the battery to be changed. Please call her to schedule @ [phone]. documented in this encounterKeenan [facility] Hospital11-07-2024 Telephone encounter Note * Telephone Encounter - Miko Aguirre RN - 02/18/2024 4:07 PM EST Reviewed with Dr. Ayala. Please offer an appointment with Dr. Draper on 05/05/2023 at 2:00 pm for evaluation. If Ms. Albright accepts this appointment, please add her to the Device Clinic schedule as well. Miko Aguirre RN February 18, 2024 4:08 PM [facility] Telephone encounter Note* Telephone Encounter - Miko Aguirre RN - 02/18/2024 4:05 PM EST Device check dated 12/09/2023 and previously scanned to chart indicated about one year until [facility]. Previous device check dated 05/21/2023 and also scanned to chart indicated 2.5 yrs until [facility]. Miko Aguirre RN February 18, 2024 4:07 PM [facility] Telephone encounter Note* Telephone Encounter - Millie Reardon - 02/18/2024 3:12 PM EST Please see previous note and advise.Millie Reardon [facility]11-07-[facility] Telephone encounter Note* Telephone Encounter - Tami Baker - 02/18/2024 12:28 PM EST Patient called stating that her last appt w/ Dr. De La Rosa, he told her to schedule an appt w/ Dr. Ayala because it is about time for the battery to be changed. Please call her to schedule @ [phone]. [facility]11-[facility] Telephone encounter Note* Telephone Encounter - Cleopatra Tabor LPN - 02/17/2024 4:30 PM EST Spoke with pt and she is aware this is not filled by our provider. Pt will call her Neurologist forrefill. Cleopatra Tabor LPN [facility]11-06-2024 Miscellaneous Notes* Telephone Encounter - Cleopatra Tabor LPN - 02/17/2024 4:30 PM EST Spoke with pt and she is aware this is not filled by our provider. Pt will call her Neurologist forrefill. Cleopatra Tabor LPN * Telephone Encounter - Amira Poon - 02/17/2024 1:58 PM EST Prescription Refill Information The patient has been identified by name and date of : Yes Caregiver verified no other encounters exist for this prescription request: Yes Caregiver confirmed with patient/requestor that no other refills are due, in the near future, with this provider at this time: Yes The last office visit in the department: 02-03-24 Does the patient have a future office visit with this provider/department: Yes Requested Prescriptions Pending Prescriptions Disp Refills gabapentin (NEURONTIN) 800 mg tablet Sig: Take 1 tablet by mouth four times daily. Amira Poon February 17, 2024 1:59 PM documented in this encounterKeenan [facility] Hospital11-06-2024 Telephone encounter Note * Telephone Encounter - Amira Poon - 02/17/2024 1:58 PM EST Prescription Refill Information The patient has been identified by name and date of : Yes Caregiver verified no other encounters exist for this prescription request: Yes Caregiver confirmed with patient/requestor that no other refills are due, in the near future, with this provider at this time: Yes The last office visit in the department: 02-03-24 Does the patient have a future office visit with this provider/department: Yes Requested Prescriptions Pending Prescriptions Disp Refills gabapentin (NEURONTIN) 800 mg tablet Sig: Take 1 tablet by mouth four times daily. Amira Poon February 17, 2024 1:59 PM [facility]11-04-2024 Telephone encounter Note* Telephone Encounter - Shara Oneil MA - 02/15/2024 1:48 PM EST Pt notified. Is not taking any calcium. Transferred to PSS to set up Endo appt. Shara Oneil MA [facility]11-04-2024 Miscellaneous Notes* Telephone Encounter - Shara Oneil MA - 02/15/2024 1:48 PM EST Pt notified. Is not taking any calcium. Transferred to PSS to set up Endo appt. Shara Oneil MA * Telephone Encounter - Deion Russell APRN.CNP - 02/15/2024 12:36 PM EST Please let the patient know that her labs look okay with exception of her calcium level. Calcium level is high at 11.7. Her parathyroid hormones also elevated. We should get her to endocrinology for further evaluation. I placed a referral. If she is taking any calcium supplements [id number] they should be discontinued immediately. Please have the patient continue with plan follow-up with Sophia as scheduled. Deion Russell APRN.CNP documented [facility] Telephone encounter Note * Telephone Encounter - Deion Russell APRN.CNP - 02/15/2024 12:36 PM EST Please let the patient know that her labs look okay with exception of her calcium level. Calcium level is high at 11.7. Her parathyroid hormones also elevated. We should get her to endocrinology for further evaluation. I placed a referral. If she is taking any calcium supplements [id number] they should be discontinued immediately. Please have the patient continue with plan follow-up with Sophia as scheduled. Deion Russell APRN.CHILDB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 [facility]10-30-2024 Telephone encounter Note* Telephone Encounter - Geetha Mohamud MA - 02/10/2024 9:25 AM EDT Patient notified. [facility]10-30-2024 Miscellaneous Notes* Telephone Encounter - Geetha Mohamud MA - 02/10/2024 9:25 AM EDT Patient notified. * Telephone Encounter - Geetha Mohamud MA - 02/10/2024 9:20 AM EDT ----- Message from Zaira Sarkar APRN.CNP sent at 02/10/2024 7:27 AM EDT ----- Please let the patient know her urinalysis was normal, no further work-up needed Zaira Sarkar APRN.CHILDB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 documented in this [facility] Telephone encounter Note * Telephone Encounter - Geetha Mohamud MA - 02/10/2024 9:20 AM EDT ----- Message from Zaira Sarkar APRN.CNP sent at 02/10/2024 7:27 AM EDT ----- Please let the patient know her urinalysis was normal, no further work-up needed Zaira Sarkar APRN.CNP [place] [id number] Telephone encounter Note* Telephone Encounter - Shara Oneil MA - 02/08/2024 2:47 PM EDT Pt notified and voiced understanding. Shara Oneil MA [facility]10-28[facility]24 Miscellaneous Notes* Telephone Encounter - Shara Oneil MA - 02/08/2024 2:47 PM EDT Pt notified and voiced understanding. Shara Oneil MA * Telephone Encounter - Zaira Sarkar APRN.QUINT[place] - 02/08/2024 2:43 PM EDT Since there was blood in the urine without clear evidence of infection recommend rechecking urinalysis and if it persists she will need to see urology Zaira Sarkar APRN.CHILDB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 * Telephone Encounter - Cleopatra Tabor LPN - 02/08/2024 2:41 PM EDT Spoke with pt and information listed below given. Pt verbalizes understanding. Pt reports symptoms have cleared up. Pt will let us know if this changes. Cleopatra Tabor LPN * Telephone Encounter - Shara Oneil MA - 02/08/2024 1:26 PM EDT Message left for pt to call back for results. Shara Oneil MA * Telephone Encounter - Shara Oneil MA - 02/08/2024 12:57 PM EDT ----- Message from Zaira Sarkar APRN.CHILDB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 sent at 02/08/2024 12:29 PM EDT ----- Please let the patient know the urinalysis did not clearly indicate infection. How are her symptoms? Zaira Sarkar APRN.CHILDB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 documented in this encounterKe[facility]10-[facility]-2024 Telephone encounter Note * Telephone Encounter - Zaira Sarkar APRN.QUINT[place] - 02/08/2024 2:43 PM EDT Since there was blood in the urine without clear evidence of infection recommend rechecking urinalysis and if it persists she will need to see urology Zaira Sarkar APRN.CHILDB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 [facility]10-28-2024 Telephone encounter Note* Telephone Encounter - Cleopatra Tabor LPN - 02/08/2024 2:41 PM EDT Spoke with pt and information listed below given. Pt verbalizes understanding. Pt reports symptoms have cleared up. Pt will let us know if this changes. Cleopatra Tabor LPN [facility]10-28-2024 Telephone encounter Note* Telephone Encounter - Shara Oneil MA - 02/08/2024 1:26 PM EDT Message left for pt to call back for results. Shara Oneil MA [facility]10-28-2024 Telephone encounter Note* Telephone Encounter - Shara Oneil MA - 02/08/2024 12:57 PM EDT ----- Message from Zaira Sarkar APRN.CHILDB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 sent at 02/08/2024 12:29 PM EDT ----- Please let the patient know the urinalysis did not clearly indicate infection. How are her symptoms? Zaira Sarkar APRN.CHILDB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 [facility]10-23-2024 NoteHNO ID: [id number] Author: EJ RODRIGUEZ, DO Service: ? Author Type: Physician Type: Progress Notes Filed: 02/03/2024 14:08 Note Text: SERVICE DATE: February 03, 2024 PCP: Edmundo Cruz MD Subjective Patient ID: Jenni is a 73 year old female. Chief Complaint: Patient presents with: 10 months post visit Left shoulder pain with injection given PAIN EVALUATION 02/03/2024 1343 Pain Level: 7 Pain Location: Shoulder-Left Description: Sharp Duration Amount of Time: -- Ongoing Frequency: Continuous Intervention/Comfort measure: Medication HPI Patient presents today for follow-up of chronic left shoulder pain/osteoarthritis. She was last seen here 10 months ago. At that time she received a corticosteroid injection to the shoulder and physical therapy. She states the injection helped for about a month and the therapy did not seem to help much at all. She continues to have significant pain and motion restriction in the shoulder. She would like referred for surgical consultation, but would like to stay within the area due to travel issues. Review of Systems ACTIVE PROBLEM LIST Multiple Sclerosis (Hcc) Neuropathic Pain Hyperlipidemia Gerd (Gastroesophageal Reflux Disease) Vitamin D Deficiency Back Pain Rebecca (Obstructive Sleep Apnea) Iron Deficiency Anemia History of Rectal Polypectomy Cad (Coronary Artery Disease) Pulmonary Embolism (Hcc) Essential Hypertension Cardiac Pacemaker History of Dvt (Deep Vein Thrombosis) Positive Occult Stool Blood Test Spastic Hemiplegia, Unspecified Etiology, Unspecified Laterality ([facility]) Morbid Obesity ([facility]) Congestive Heart Failure, Unspecified Hf Chronicity, Unspecified Heart Failure Type ([facility]) Paf (Paroxysmal Atrial Fibrillation) ([facility]) Abnormal Result of Other Cardiovascular Function Study Biventricular Implantable Cardioverter-Defibrillator (Icd) in Situ Calf Pain Cervico-Occipital Neuralgia 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 Das - [place] CATARACT EXTRACTION HX Left 04/16/2017 Dr. Das COLONOSCOPY 08/01/2011 5mm rectal polyp COLONOSCOPY 12/05/2015 rectal polyp (adenoma) and diverticulosis EGD 07/17/2011 sliding hiatal hernia ENDOSCOPY PROC 11/19/15 Dr. Lema- HEART CATHETERIZATION ?1980s HYSTERECTOMY HX 1982 PACEMAKER ROTATOR CUFF REPAIR right FAMILY HISTORY Problem Relation Age of Onset Cancer Father Diabetes Mother Coronary Artery Disease Mother NE's Coronary Artery Disease Brother 2 brothers CABG Aneurysm Brother Heart Sister NE's, valve replaced Stroke Sister Ovarian cancer Sister Multiple Sclerosis Sister Hypertension Sister Social History Tobacco Use Smoking status: Former Current packs/day: 1.00 Average packs/day: 1 pack/day for 20.0 years (20.0 ttl pk-yrs) Types: Cigarettes Smokeless tobacco: Never Tobacco comments: Quit around 1995 Vaping Use Vaping status: Never Used Substance Use Topics Alcohol use: Yes Comment: occ Drug use: Never ALLERGIES Allergen Reactions Glatiramer Itching, Rash MEDICATIONS: nitrofurantoin monohydrate and macrocrystal (MACROBID) 100 mg capsule Take 1 capsule by mouth two times a day with meals for 7 days. pravastatin (PRAVACHOL) 40 mg tablet Take 1 tablet by mouth daily at bedtime. losartan (COZAAR) 50 mg tablet Take 1 tablet by mouth once daily. spironolactone (ALDACTONE) 25 mg tablet Take 1 tablet by mouth once daily. magnesium oxide (MAGOX) 400 mg (241.3 mg magnesium) tablet Take 1 tablet by mouth two times a day. apixaban (ELIQUIS) 5 mg tab(s) Take 1 tablet by mouth two times a day. carvedilol (COREG) 25 mg tablet Take 0.5 tablets by mouth two times a day. (more content not included)...[facility]10-23-2024 History of Present illness Narrative* Ej Rodriguez V, DO - 02/03/2024 2:05 PM EDT Images from the original note were not included. SERVICE DATE: February 03, 2024 PCP: Edmundo Cruz MD Subjective Patient ID: Jenni is a 73 year old female. Chief Complaint: Patient presents with: 10 months post visit Left shoulder pain with injection given PAIN EVALUATION 02/03/2024 1343 Pain Level: 7 Pain Location: Shoulder-Left Description: Sharp Duration Amount of Time: -- Ongoing Frequency: Continuous Intervention/Comfort measure: Medication HPI Patient presents today for follow-up of chronic left shoulder pain/osteoarthritis. She was last seen here 10 months ago. At that time she received a corticosteroid injection to the shoulder and physical therapy. She states the injection helped for about a month and the therapy did not seem to help much at all. She continues to have significant pain and motion restriction in the shoulder. She would like referred for surgical consultation, but would like to stay within the area due to travel issues. Review of Systems ACTIVE PROBLEM LIST Multiple Sclerosis (Hcc) Neuropathic Pain Hyperlipidemia Gerd (Gastroesophageal Reflux Disease) Vitamin D Deficiency Back Pain Rebecca (Obstructive Sleep Apnea) Iron Deficiency Anemia History of Rectal Polypectomy Cad (Coronary Artery Disease) Pulmonary Embolism (Hcc) Essential Hypertension Cardiac Pacemaker History of Dvt (Deep Vein Thrombosis) Positive Occult Stool Blood Test Spastic Hemiplegia, Unspecified Etiology, Unspecified Laterality ([facility]) Morbid Obesity ([facility]) Congestive Heart Failure, Unspecified Hf Chronicity, Unspecified Heart Failure Type ([facility]) Paf (Paroxysmal Atrial Fibrillation) ([facility]) Abnormal Result of Other Cardiovascular Function Study Biventricular Implantable Cardioverter-Defibrillator (Icd) in Situ Calf Pain Cervico-Occipital Neuralgia 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 Das - [place] CATARACT EXTRACTION HX Left 04/16/2017 Dr. Das COLONOSCOPY 08/01/2011 5mm rectal polyp COLONOSCOPY 12/05/2015 rectal polyp (adenoma) and diverticulosis EGD 07/17/2011 sliding hiatal hernia ENDOSCOPY PROC 11/19/15 Dr. Lema- HEART CATHETERIZATION ?1980s HYSTERECTOMY HX 1982 PACEMAKER ROTATOR CUFF REPAIR right FAMILY HISTORY Problem Relation Age of Onset Cancer Father Diabetes Mother Coronary Artery Disease Mother NE's Coronary Artery Disease Brother 2 brothers CABG Aneurysm Brother Heart Sister NE's, valve replaced Stroke Sister Ovarian cancer Sister Multiple Sclerosis Sister Hypertension Sister Social History Tobacco Use Smoking status: Former Current packs/day: 1.00 Average packs/day: 1 pack/day for 20.0 years (20.0 ttl pk-yrs) Types: Cigarettes Smokeless tobacco: Never Tobacco comments: Quit around 1995 Vaping Use Vaping status: Never Used Substance Use Topics Alcohol use: Yes Comment: occ Drug use: Never ALLERGIES Allergen Reactions Glatiramer Itching, Rash MEDICATIONS: nitrofurantoin monohydrate and macrocrystal (MACROBID) 100 mg capsule Take 1 capsule by mouth two times a day with meals for 7 days. pravastatin (PRAVACHOL) 40 mg tablet Take 1 tablet by mouth daily at bedtime. losartan (COZAAR) 50 mg tablet Take 1 tablet by mouth once daily. spironolactone (ALDACTONE) 25 mg tablet Take 1 tablet by mouth once daily. magnesium oxide (MAGOX) 400 mg (241.3 mg magnesium) tablet Take 1 tablet by mouth two times a day. apixaban (ELIQUIS) 5 mg tab(s) Take 1 tablet by mouth two times a day. carvedilol (COREG) 25 mg tablet Take 0.5 tablets by mouth two times a day. esomeprazole (NEXIUM) 40 mg capsule Take 1 capsule by mouth daily before breakfast. 1/2 hr before meal. fenofibrate nanocrystallized (TRICOR) 145 mg tablet Take 1 tablet by mouth once daily. DULoxetine (CYMBALTA) 30 mg capsule take 1 capsule by mouth every day in the evening DULoxetine (CYMBALTA) 60 mg capsule VUMERITY 231 mg capsule, delayed release Twice [...] am, 1in afternoon and 2 at bedtime nitroglycerin sublingual (NITROQUICK) 0.4 mg SL tablet [...] 325 mg by mouth daily with breakfast. COMPOUNDED PRESCRIPTION One pair of shoes to fit over leg brace. Dx: G35; M79.2 Allergies, medications, past surgical history, family history and past medical history were reviewed per this encounter. Objective Ortho Exam 73-year-old female [facility] exam. Valuation of the left shoulder shows significant range of motion restriction with abduction and external rotation. This with motion testing. Rotator cuff strength is 3+ out of 5. Extremity sensory neural examination shows paresthesia and decreased sensation in the left hand. Assessment/Plan ASSESSMENT Diagnosis Glenohumeral joint arthritis left shoulder No orders found for this visit on 02/03/24. PLAN Lengthy discussion with patient and her today about underlying comorbid conditions putting her at high risk for surgery as well as potential need for reverse shoulder placement due to rotatorcuff abnormality. 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 Referral is made to for consultation. FOLLOW-UP: No follow-ups on file. SIGNATURE: Ej Rodriguez DO PATIENT NAME: Jenni Albright DATE: February 03, 2024 TIME: 2:05 PM * Eula Cedeño MA - 02/03/2024 1:40 PM EDT Patient presents with: 10 months post visit Left shoulder pain with injection given AMB ROOMING INTAKE FLOWSHEET DATA Pain Pain Level: 7 Pain Location: Shoulder-Left Description: Sharp Duration Amount of Time: (Ongoing) Frequency: Continuous Intervention/Comfort measure: Medication Patient states injection helped for about a month. Taking Tylenol when she is unable to tolerate the pain. She would like to discuss referral for surgery [facility] NoteHNO ID: [id number] Author: EULA CEDEÑO MA Service: ? Author Type: Database Programmer Type: Progress Notes Filed: 02/03/2024 14:08 Note Text: Patient presents with: 10 months post visit Left shoulder pain with injection given AMB ROOMING INTAKE FLOWSHEET DATA Pain Pain Level: 7 Pain Location: Shoulder-Left Description: Sharp Duration Amount of Time: (Ongoing) Frequency: Continuous Intervention/Comfort measure: Medication Patient states injection helped for about a month. Taking Tylenol when she is unable to tolerate the pain. She would like to discuss referral for surgery [facility]10-23-2024 NoteHNO ID: [id number] Author: ZAIRA SARKAR APRN.QUINTON Service: ? Author Type: Nurse Practitioner Type: Progress Notes Filed: 02/03/2024 13:13 Note Text: CC: Patient presents with: UTI: Frequency, odor, cloudy x 1 week HPI Jenni Albright is a 73 year old female who presents with complaint of possible UTI. These symptoms have been present for seven days. Associated symptoms: urgency, frequency, foul smelling urine, pressure, and pelvic pain Denies: burning, hematuria, fever, chills, sweats, nausea, vomiting, frequent UTI's, malaise, decreased appetite, confusion, disorientation Treatments: increasing her fluids Review of Systems See HPI PAST MEDICAL HISTORY Diagnosis Date Back pain [...] Pulmonary embolism (HCC) 07/2013 during hospitalization for [place] Vitamin D deficiency PAST SURGICAL HISTORY Procedure [...] ROTATOR CUFF REPAIR right ALLERGIES Glatiramer MEDICATIONS pravastatin (PRAVACHOL) 40 mg tablet Take 1 tablet by mouth daily at bedtime. losartan (COZAAR) 50 mg tablet Take 1 tablet by mouth once daily. spironolactone (ALDACTONE) 25 mg tablet Take 1 tablet by mouth once daily. magnesium oxide (MAGOX) 400 mg (241.3 mg magnesium) tablet Take 1 tablet by mouth two times a day. apixaban (ELIQUIS) 5 mg tab(s) Take 1 tablet by mouth two times a day. carvedilol (COREG) 25 mg tablet Take 0.5 tablets by mouth two times a day. esomeprazole (NEXIUM) 40 mg capsule Take 1 capsule by mouth daily before breakfast. 1/2 hr before meal. fenofibrate nanocrystallized (TRICOR) 145 mg tablet Take 1 tablet by mouth once daily. DULoxetine (CYMBALTA) 30 mg capsule take 1 capsule by mouth every day in the evening DULoxetine (CYMBALTA) 60 mg capsule JENNMERITY 231 mg capsule, delayed release Twice daily-Dr. Marvindobree dimethyl fumarate (TECFIDERA) [address] [...] 325 mg by mouth daily with breakfast. FAMILY HISTORY Problem Relation Age of Onset Cancer Father Diabetes Mother Coronary Artery Disease Mother NE's Coronary Artery Disease Brother 2 brothers CABG Aneurysm Brother Heart Sister NE's, valve replaced Stroke Sister Ovarian cancer Sister Multiple Sclerosis Sister Hypertension Sister Social History Tobacco Use Smoking status: Former Current packs/day: 1.00 Average packs/day: 1 pack/day for 20.0 years (20.0 ttl pk-yrs) Types: Cigarettes Smokeless tobacco: Never Tobacco comments: Quit around 1995 Vaping Use Vaping status: Never Used Substance Use Topics Alcohol use: Yes Comment: occ Drug use: Never BP 136/82 Pulse 91 Resp 14 SpO2 95% Physical Exam Vitals reviewed. Constitutional: General: She is not in acute distress. Appearance: She is not ill-appearing or toxic-appearing. Cardiovascular: Rate and Rhythm: Normal rate and regular rhythm. Heart sounds: Normal heart sounds. Pulmonary: Effort: Pulmonary effort is normal. Breath sounds: Normal breath sounds. No wheezing, rhonchi or rales. Abdominal: General: Bowel sounds are normal. There is no distension. Palpations: Abdomen is soft. Tenderness: There is abdominal tenderness (suprapubic, mild). There is right CVA tenderness. There is no left CVA tenderness. Skin: General: Skin is dry. Neurological: Mental S (more content not included)...[facility]10-23-2024 History of Present illness Narrative* Zaira Sarkar, CHIEF YEOMAN.CHILDB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 - 02/03/2024 1:02 PM EDT CC: Patient presents with: UTI: Frequency, odor, cloudy x 1 week HPI Jenni lAbright is a 73 year old female who presents with complaint of possible UTI. These symptoms have been present for seven days. Associated symptoms: urgency, frequency, foul smelling urine, pressure, and pelvic pain Denies: burning, hematuria, fever, chills, sweats, nausea, vomiting, frequent UTI's, malaise, decreased appetite, confusion, disorientation Treatments: increasing her fluids Review of Systems See HPI PAST MEDICAL HISTORY Diagnosis Date Back pain [...] Pulmonary embolism (HCC) 07/2013 during hospitalization for [place] Vitamin D deficiency PAST SURGICAL HISTORY Procedure Laterality Date CABG, ARTERIAL, TWO 07/22/13 [facility] to LAD and Dx CARPAL TUNNEL CATARACT EXTRACTION HX Right 03/23/2017 Dr. Das [facility] CATARACT EXTRACTION HX Left 04/16/2017 Dr. Das COLONOSCOPY 08/01/2011 5mm rectal polyp COLONOSCOPY 12/05/2015 rectal polyp (adenoma) and diverticulosis EGD 07/17/2011 sliding hiatal hernia ENDOSCOPY PROC 11/19/15 Dr. Lema- HEART CATHETERIZATION ?1980s HYSTERECTOMY HX 1982 PACEMAKER ROTATOR CUFF REPAIR right ALLERGIES Glatiramer MEDICATIONS pravastatin (PRAVACHOL) 40 mg tablet Take 1 tablet by mouth daily at bedtime. losartan (COZAAR) 50 mg tablet Take 1 tablet by mouth once daily. spironolactone (ALDACTONE) 25 mg tablet Take 1 tablet by mouth once daily. magnesium oxide (MAGOX) 400 mg (241.3 mg magnesium) tablet Take 1 tablet by mouth two times a day. apixaban (ELIQUIS) 5 mg tab(s) Take 1 tablet by mouth two times a day. carvedilol (COREG) 25 mg tablet Take 0.5 tablets by mouth two times a day. esomeprazole (NEXIUM) 40 mg capsule Take 1 capsule by mouth daily before breakfast. 1/2 hr before meal. fenofibrate nanocrystallized (TRICOR) 145 mg tablet Take 1 tablet by mouth once daily. DULoxetine (CYMBALTA) 30 mg capsule take 1 capsule by mouth every day in the evening DULoxetine (CYMBALTA) 60 mg capsule VUMERITY 231 mg capsule, delayed release Twice [...] 325 mg by mouth daily with breakfast. FAMILY HISTORY Problem Relation Age of Onset Cancer Father Diabetes Mother Coronary Artery Disease Mother NE's Coronary Artery Disease Brother 2 brothers CABG Aneurysm Brother Heart Sister NE's, valve replaced Stroke Sister Ovarian cancer Sister Multiple Sclerosis Sister Hypertension Sister Social History Tobacco Use Smoking status: Former Current packs/day: 1.00 Average packs/day: 1 pack/day for 20.0 years (20.0 ttl pk-yrs) Types: Cigarettes Smokeless tobacco: Never Tobacco comments: Quit around 1995 Vaping Use Vaping status: Never Used Substance Use Topics Alcohol use: Yes Comment: occ Drug use: Never BP 136/82 Pulse 91 Resp 14 SpO2 95% Physical Exam Vitals reviewed. Constitutional: General: She is not in acute distress. Appearance: She is not ill-appearing or toxic-appearing. Cardiovascular: Rate and Rhythm: Normal rate and regular rhythm. Heart sounds: Normal heart sounds. Pulmonary: Effort: Pulmonary effort is normal. Breath sounds: Normal breath sounds. No wheezing, rhonchi or rales. Abdominal: General: Bowel sounds are normal. There is no distension. Palpations: Abdomen is soft. Tenderness: There is abdominal tenderness (suprapubic, mild). There is right CVA tenderness. There is no left CVA tenderness. Skin: General: Skin is dry. Neurological: Mental Status: She is alert. DATA REVIEWED: Most recent labs ASSESSMENT/PLAN: 1. Dysuria - ICD9: 788.1, ICD10: R30.0 (primary diagnosis) Patient unable to give sample in the office. Will treat presumptively with Macrobid and she will godown to the lab to give a sample when she is able. Follow-up in 2-3 days if symptoms persist or sooner if worsening - URINALYSIS WITH MICROSCOPIC, REFLEX CULTURE 2. Urinary frequency - ICD9: 788.41, ICD10: R35.0 As above - URINALYSIS WITH MICROSCOPIC, REFLEX CULTURE Prescription instructions reviewed with patient as applicable. Potential red flag symptoms discussed with the patient. Reviewed appropriate action plan to take if red flag symptoms occur. Patient agreeable to treatment plan. Zaira Sarkar APRN.CHILDB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 documented in [facility] Telephone encounter Note * Telephone Encounter - Cleopatra Tabor LPN - 02/02/2024 3:55 PM EDT Pt calls and states the following: URINARY SYMPTOMS. Requesting an apt 02-03-24. SYMPTOMS: frequency, odor, cloudy ONSET: 1 week ago PAIN: no CAUSE: unknown OTHER SYMPTOMS: itchy DENIES: burning Pt's provider/team/department not available. Scheduled for apt with provider. Pt had time restrictions. Has apt at 2 pm with another provider. Clepoatra Tabor LPN [facility]10-22-2024 Miscellaneous Notes* Telephone Encounter - Cleopatra Tabor LPN - 02/02/2024 3:55 PM EDT Pt calls and states the following: URINARY SYMPTOMS. Requesting an apt 02-03-24. SYMPTOMS: frequency, odor, cloudy ONSET: 1 week ago PAIN: no CAUSE: unknown OTHER SYMPTOMS: itchy DENIES: burning Pt's provider/team/department not available. Scheduled for apt with provider. Pt had time restrictions. Has apt at 2 pm with another provider. Cleopatra Tabor LPN documented in this encounter[facility]08-[facility]24 Telephone encounter Note * Telephone Encounter - Sophia Castillo APRN.CNP - 12/10/2023 2:16 PM EDT The following approved medication requests have been transmitted electronically. Requested Prescriptions Pending Prescriptions Disp Refills pravastatin (PRAVACHOL) 40 mg tablet 90 tablet 3 Sig: Take 1 tablet by mouth daily at bedtime. Sophia Castillo APRN.CNP [facility]08-29-2024 Miscellaneous Notes* Telephone Encounter - Sophia Castillo APRN.CNP - 12/10/2023 2:16 PM EDT The following approved medication requests have been transmitted electronically. Requested Prescriptions Pending Prescriptions Disp Refills pravastatin (PRAVACHOL) 40 mg tablet 90 tablet 3 Sig: Take 1 tablet by mouth daily at bedtime. Sophia Castillo APRN.CNP * Telephone Encounter - Kiara Shields - 12/10/2023 2:01 PM EDT Prescription Refill Information The patient has been identified by name and date of : Yes Caregiver verified no other encounters exist for this prescription request: Yes Caregiver confirmed with patient/requestor that no other refills are due, in the near future, with this provider at this time: Yes The last office visit in the department: 07/09/2023 Does the patient have a future office visit with this provider/department: Yes Requested Prescriptions Pending Prescriptions Disp Refills pravastatin (PRAVACHOL) 40 mg tablet 90 tablet 3 Sig: Take 1 tablet by mouth daily at bedtime. Kiara Crum December 10, 2023 2:02 PM documented in this encounterKeenan [facility] Hospital08-29-2024 Telephone encounter Note * Telephone Encounter - Kiara Shields - 12/10/2023 2:01 PM EDT Prescription Refill Information The patient has been identified by name and date of : Yes Caregiver verified no other encounters exist for this prescription request: Yes Caregiver confirmed with patient/requestor that no other refills are due, in the near future, with this provider at this time: Yes The last office visit in the department: 07/09/2023 Does the patient have a future office visit with this provider/department: Yes Requested Prescriptions Pending Prescriptions Disp Refills pravastatin (PRAVACHOL) 40 mg tablet 90 tablet 3 Sig: Take 1 tablet by mouth daily at bedtime. Kiara Crum December 10, 2023 2:02 PM [facility]08-28-2024 NoteHNO ID: [id number] Author: DA DE LA ROSA MD Service: ? Author Type: Physician Type: Progress Notes Filed: 12/09/2023 16:19 Note Text: [facility] OUTPATIENT VISIT DATE December 09, 2023 OUTPATIENT VISIT TYPE ESTABLISHED PRIMARY CARE PHYSICIAN: Edmundo Cruz MD CHIEF COMPLAINT: Established Patient Follow-Up (Jessie on 11-17-22 w Clara MCKEON) HISTORY OF PRESENT ILLNESS: Ms. Albright is a 73 year old female who presents today for a cardiovascular medicine follow-up visit. 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 Patient declines any chest pain. Her activities are limited due to multiple sclerosis, walks with a rollator. She denies dyspnea on exertion with routine ADL, palpitation, dizziness, or syncope. Patient has been following with Dr. Ayala, parts cleaner for dual-chamber pacemaker. No any bleeding issues with Eliquis. Device check today shows 1 episodes of nonsustained ventricular tachycardia lasting for 10 beats.. PAST MEDICAL HISTORY No date: Back pain 11/19/2015: 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 07/2013: CAD (coronary artery disease) Comment: non-STMI/CABG No date: GERD (gastroesophageal reflux disease) Comment: hiatal hernia 09/14/2015: History of DVT (deep vein thrombosis) 07/2011: History of rectal polypectomy No date: Hyperlipidemia No date: Hypertension No date: Iron deficiency anemia No date: Multiple sclerosis (HCC) No date: Neuropathic pain Comment: Legs>arms from MS No date: REBECCA (obstructive sleep apnea) Comment: on CPAP No date: Pacemaker 07/2013: Pulmonary embolism (HCC) Comment: during hospitalization for NE No date: Vitamin D deficiency PAST SURGICAL HISTORY 07/22/13: CABG, ARTERIAL, TWO Comment: THURMAN to LAD and Dx No date: CARPAL TUNNEL 03/23/2017: CATARACT EXTRACTION HX; Right Comment: Dr. Thiago Verdugo 04/16/2017: CATARACT EXTRACTION HX; Left Comment: Dr. Das 08/01/2011: COLONOSCOPY Comment: 5mm rectal polyp 12/05/2015: COLONOSCOPY Comment: rectal polyp (adenoma) and diverticulosis 07/17/2011: EGD Comment: sliding hiatal hernia 11/19/15: ENDOSCOPY PROC Comment: Dr. Lema- ?1980s: HEART CATHETERIZATION 1982: HYSTERECTOMY HX No date: PACEMAKER No date: ROTATOR CUFF REPAIR Comment: right SOCIAL HISTORY Social History Tobacco Use Smoking status: Former Current packs/day: 1.00 Average packs/day: 1 pack/day for 20.0 years (20.0 ttl pk-yrs) Types: Cigarettes Smokeless tobacco: Never Tobacco comments: Quit around 1995 Vaping Use Vaping status: Never Used Substance Use Topics Alcohol use: Yes Comment: occ Drug use: Never FAMILY HISTORY Problem Relation Age of Onset Cancer Father Diabetes Mother Coronary Artery Disease Mother NE's Coronary Artery Disease Brother 2 brothers CABG Aneurysm Brother Heart Sister NE's, valve replaced Stroke Sister Ovarian cancer Sister Multiple Sclerosis Sister Hypertension Sister ALLERGIES Allergen Reactions Glatiramer Itching, Rash MEDICATIONS: losartan (COZAAR) 50 mg tablet Take 1 tablet by mouth once daily. spironolactone (ALDACTONE) 25 mg tablet Take 1 tablet by mouth once daily. magnesium oxide (MAGOX) 400 mg (241.3 mg magnesium) tablet Take 1 tablet by mouth two times a day. apixaban (ELIQUIS) 5 mg tab(s) Take 1 tablet by mouth two times a day. carvedilol (COREG) 25 mg tablet Take 0.5 tablets by mouth two times a day. esomeprazole (NEXIUM) 40 mg capsule Take 1 capsule by mouth daily before breakfast. 1/2 hr before meal. fenofibrate nanocrystallized (TRICOR) 145 mg tablet Take 1 tablet by mouth once daily. DULoxetine (CYMBALTA) 30 mg capsule take 1 capsule by mouth every day in the evening DULoxetine (CYMBALTA) 60 mg capsule pravastatin (PRAVACHOL) 40 mg tablet Take 1 tablet by mouth daily at bedtime. VUMERITY 231 mg capsule, delayed release Twice [...] for Chest Pain. multivitamin (MULTIPLE VITAMINS) tablet Ta (more content not included)...[facility]08-28-2024 History of Present illness Narrative* Da De La Rosa MD - 12/09/2023 4:01 PM EDT Images from the original note were not included. [facility] OUTPATIENT VISIT DATE December 09, 2023 OUTPATIENT VISIT TYPE ESTABLISHED PRIMARY CARE PHYSICIAN: Edmundo Cruz MD CHIEF COMPLAINT: Established Patient Follow-Up ([facility] on 11-17-22 w Clara MCKEON) HISTORY OF PRESENT ILLNESS: Ms. Albright is a 73 year old female who presents today for a cardiovascular medicine follow-up visit.Her medical issues are: coronary artery disease, status post CABG 07/22/13, hypertension, hypercholesterolemia, paroxysmal atrial fibrillation, nonsustained ventricular tachycardia, Biventricualr dualchamber pacemaker implant for CHB on 09/05/14, history of multiple sclerosis , GI bleed on Xarelto on August 2015, History of bladder stimulator implant. Patient declines any chest pain. Her activities are limited due to multiple sclerosis, walks with arollator. She denies dyspnea on exertion with routine ADL, palpitation, dizziness, or syncope. Patient has been following with Dr. Ayala, parts cleaner for dual-chamber pacemaker. No any bleeding issues with Eliquis. Device check today shows 1 episodes of nonsustained ventricular tachycardia lasting for 10 beats.. PAST MEDICAL HISTORY No date: Back pain 11/19/2015: 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 07/2013: CAD (coronary artery disease) Comment: non-STMI/CABG No date: GERD (gastroesophageal reflux disease) Comment: hiatal hernia 09/14/2015: History of DVT (deep vein thrombosis) 07/2011: History of rectal polypectomy No date: Hyperlipidemia No date: Hypertension No date: Iron deficiency anemia No date: Multiple sclerosis (HCC) No date: Neuropathic pain Comment: Legs>arms from MS No date: REBECCA (obstructive sleep apnea) Comment: on CPAP No date: Pacemaker 07/2013: Pulmonary embolism (HCC) Comment: during hospitalization for NE No date: Vitamin D deficiency PAST SURGICAL HISTORY 07/22/13: CABG, ARTERIAL, TWO Comment: THURMAN to LAD and Dx No date: CARPAL TUNNEL 03/23/2017: CATARACT EXTRACTION HX; Right Comment: Dr. Thiago Verdugo 04/16/2017: CATARACT EXTRACTION HX; Left Comment: Dr. Das 08/01/2011: COLONOSCOPY Comment: 5mm rectal polyp 12/05/2015: COLONOSCOPY Comment: rectal polyp (adenoma) and diverticulosis 07/17/2011: EGD Comment: sliding hiatal hernia 11/19/15: ENDOSCOPY PROC Comment: Dr. Lema- ?1980s: HEART CATHETERIZATION 1982: HYSTERECTOMY HX No date: PACEMAKER No date: ROTATOR CUFF REPAIR Comment: right SOCIAL HISTORY Social History Tobacco Use Smoking status: Former Current packs/day: 1.00 Average packs/day: 1 pack/day for 20.0 years (20.0 ttl pk-yrs) Types: Cigarettes Smokeless tobacco: Never Tobacco comments: Quit around 1995 Vaping Use Vaping status: Never Used Substance Use Topics Alcohol use: Yes Comment: occ Drug use: Never FAMILY HISTORY Problem Relation Age of Onset Cancer Father Diabetes Mother Coronary Artery Disease Mother NE's Coronary Artery Disease Brother 2 brothers CABG Aneurysm Brother Heart Sister NE's, valve replaced Stroke Sister Ovarian cancer Sister Multiple Sclerosis Sister Hypertension Sister ALLERGIES Allergen Reactions Glatiramer Itching, Rash MEDICATIONS: losartan (COZAAR) 50 mg tablet Take 1 tablet by mouth once daily. spironolactone (ALDACTONE) 25 mg tablet Take 1 tablet by mouth once daily. magnesium oxide (MAGOX) 400 mg (241.3 mg magnesium) tablet Take 1 tablet by mouth two times a day. apixaban (ELIQUIS) 5 mg tab(s) Take 1 tablet by mouth two times a day. carvedilol (COREG) 25 mg tablet Take 0.5 tablets by mouth two times a day. esomeprazole (NEXIUM) 40 mg capsule Take 1 capsule by mouth daily before breakfast. 1/2 hr before meal. fenofibrate nanocrystallized (TRICOR) 145 mg tablet Take 1 tablet by mouth once daily. DULoxetine (CYMBALTA) 30 mg capsule take 1 capsule by mouth every day in the evening DULoxetine (CYMBALTA) 60 mg capsule pravastatin (PRAVACHOL) 40 mg tablet Take 1 tablet by mouth daily at bedtime. VUMERITY 231 mg capsule, delayed release Twice [...] breakfast. REVIEW OF SYSTEMS: Review of Systems Constitutional: Negative. HENT: Negative for congestion, trouble swallowing and voice change. Eyes: Negative for visual disturbance. Respiratory: Negative. Patient wears CPAP mask regularly for sleep apnea Cardiovascular: Negative. Endocrine: Negative. Genitourinary: Negative for difficulty urinating, dysuria, flank pain and urgency. Musculoskeletal: Positive for arthralgias and back pain. Allergic/Immunologic: Negative for food allergies and immunocompromised state. Neurological: Positive for numbness. Negative for dizziness, tremors, seizures, syncope, speech difficulty, weakness, light-headedness and headaches. Hematological: Negative. Psychiatric/Behavioral: Positive for sleep disturbance. Negative for agitation, hallucinations and self-injury. The patient is not nervous/anxious and is not hyperactive. PHYSICAL EXAMINATION: BP 143/71 (BP Site: Left Arm, BP Position: Sitting, BP Cuff Size: Regular Adult) Pulse 76 Ht 157.5 cm (5' 2") Wt 102.5 kg (226 lb) SpO2 93% BMI 41.34 kg/m Physical Exam Physical Exam Vitals reviewed. Constitutional: General: patient is not in acute distress. Appearance: Morbidly obese, appears chronically sick, with a rollator for office visit. HENT: Head: Normocephalic and atraumatic. Mouth/Throat: No congestion. Mouth: Mucous membranes are moist. Pharynx: Oropharynx is clear. Eyes: Conjunctiva/sclera: Conjunctivae normal. Pupils: Pupils are equal, round, and reactive to light. Cardiovascular detailed exam: Neck: no neck veins distention Hepatojugular reflux negative Chest Wall: PMI is not displaced. No thrill. Pacemaker/or ICD site left subclavian region looks clean Heart sounds: Normal rate and regular rhythm. S1 and S2 regular and normal. 2/6 soft systolic murmur left parasternal area. No gallop or pericardial rub. Pulses: Carotid pulses well palpable without significant carotid bruit bilaterally Dorsalis pedis pulses are 1+ on the right side and 1+ on the left side. Posterior tibial pulses are 1+ on the right side and 1+ on the left side. Pulmonary: Breath sounds: Normal breath sounds.Non labored breathing at rest. Lungs: clear, no audible rhonchi or crepitations Abdomen: General: Abdomen is soft, not distended, non tender, normal peristalsis. Musculoskeletal: General: Normal range of motion. Cervical back: Neck supple. Extremities: no edema feet bilaterally Neurological: Mental Status: Alert and oriented to person, place, and time. No any focal neurological deficits. Psychiatric: Mood and Affect: Mood normal. Behavior: Behavior normal. Thought Content: Thought content normal. Judgment: Judgment normal. LABs: TSH 3.976 08/30/2020 Triglycerides, Nonfasting 121 07/28/2023 HDL Cholesterol, Nonfasting 37 07/28/2023 LDL Cholesterol, Nonfasting 64 07/28/2023 Total Cholesterol, Nonfasting 125 07/28/2023 No results found for: "HSTROP", "PBNP" CARDIOVASCULAR MEDICINE TESTING: EKG sinus rhythm with a ventricular paced rhythm. Dual-chamber biventricular pacemaker check 1 episode of atrial fibrillation 1 episode of NSVT. AP percentage less than 1%. 100% BiV pacing and a pacing 7%. PLAN AND RECOMMENDATIONS: Ms. Albright is a 73 year old female for cardiology follow-up. Patient has a prior history of coronaryartery disease with a status post bypass surgery 2013 with 1 episodes of nonsustained ventricular tachycardia on device check today. Patient is not a treadmill candidate. Advised regadenoson nuclear stress test for evaluation of ischemia. Advised to lose weight with diet and activities as toleratedby patient. No bleeding issues with Eliquis therapy. Her blood pressure mild systolic hypertension but diastolic blood pressure is normal. Advise low- sodium diet and regular blood pressure check at home. Recent lipid profile unremarkable on medical therapy. Clinical diagnosis: Routine check-up (primary encounter diagnosis) Coronary artery disease involving chick[place] ind[place] coronary artery of [place] heart without angina pectoris Essential hypertension Pacemaker Paroxysmal atrial fibrillation (hcc) Nonsustained ventricular tachycardia (hcc) Da De La Rosa MD Medical record was created by Voice recognition system. Phonetic and minor grammetical mistakes mayexist in documents in spite of careful proofread. [facility] in [facility] Telephone encounter Note * Telephone Encounter - Lizbet Warren - 10/27/2023 9:22 AM EDT The patient is rescheduled and confirmed on appt from w Dr. De La Rosa. Lizbet Warren [facility]07-16-2024 Miscellaneous Notes* Telephone Encounter - Lizbet Warren - 10/27/2023 9:22 AM EDT The patient is rescheduled and confirmed on appt from w Dr. De La Rosa. Lizbet Warren documented in this encounterKeen[facility]04-22-2024 Telephone encounter Note * Telephone Encounter - Sophia Castillo APRN.CNP - 08/03/2023 12:38 PM EDT Lab orders have been added, due in January. Thank you. Sophia Castillo APRN.CNP [facility]04-22-2024 Miscellaneous Notes* Telephone Encounter - Sophia Castillo APRN.CNP - 08/03/2023 12:38 PM EDT Lab orders have been added, due in January. Thank you. Sophia Castillo APRN.CNP * Telephone Encounter - Kimi Gaxiola LPN - 07/30/2023 3:20 PM EDT Patient notified of results, verbalizes understanding of instructions. Pt stated if she was checked on her calcium its been so long, she can't remember. Please put the labs with her 6 mo labs. Kimi Gaxiola LPN * Telephone Encounter - Sophia Castillo APRN.QUINTON - 07/30/2023 3:14 PM EDT Can you please call the patient and let her know that I reviewed her lab results. A1c was 5.6, cholesterol was normal. I would like her to continue to work on lifestyle changes at home, be mindful of processed foods in the diet, increase lean protein, vegetables, and get some formexercise. I noticed that she has had some elevated calcium for the past several years. I was trying to look in her chart, can you please ask if they have ever evaluated this? If not I would recommend some additional labs. I have placed repeat fasting labs for 6 months that she can complete prior to next office visit. Thank you. Sophia Castillo APRN.QUINTON documented in this encounterKeen[facility]04-18-2024 Telephone encounter Note * Telephone Encounter - Kimi Gaxiola LPN - 07/30/2023 3:20 PM EDT Patient notified of results, verbalizes understanding of instructions. Pt stated if she was checked on her calcium its been so long, she can't remember. Please put the labs with her 6 mo labs. Kimi Gaxiola LPN [facility]04-18-2024 Telephone encounter Note* Telephone Encounter - Sophia Castillo APRN.CHILDB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 - 07/30/2023 3:14 PM EDT Can you please call the patient and let her know that I reviewed her lab results. A1c was 5.6, cholesterol was normal. I would like her to continue to work on lifestyle changes at home, be mindful of processed foods in the diet, increase lean protein, vegetables, and get some formexercise. I noticed that she has had some elevated calcium for the past several years. I was trying to look in her chart, can you please ask if they have ever evaluated this? If not I would recommend some additional labs. I have placed repeat fasting labs for 6 months that she can complete prior to next office visit. Thank you. Sophia Castillo APRN.CHILDB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 [facility]02-23-2024 Telephone encounter Note* Telephone Encounter - Edmundo Cruz MD - 06/05/2023 4:14 PM EST There is nothing equivalent to the gabapentin that would be cheaper. Edmundo Cruz MD [facility]02-23-2024 Miscellaneous Notes* Telephone Encounter - Edmundo Cruz MD - 06/05/2023 4:14 PM EST There is nothing equivalent to the gabapentin that would be cheaper. Edmundo Cruz MD * Telephone Encounter - Nicolasa Salazar LPN - 06/03/2023 12:05 PM EST Pt states she was informed by her pharmacy that her insurance no longer will cover magnesium or gabapentin. Asking if there is something equivalent she can take? Asked if pt gets gabapentin from neuro as it hasn't been filled by pcp for a long time, she is insistent that pcp fills it. Pt uses [facility] in [place]. Nicolasa Salazar LPN documented in this encounterKeenan [facility] Hospital02-21-2024 Telephone encounter Note * Telephone Encounter - Nicolasa Salazar LPN - 06/03/2023 12:05 PM EST Pt states she was informed by her pharmacy that her insurance no longer will cover magnesium or gabapentin. Asking if there is something equivalent she can take? Asked if pt gets gabapentin from neuro as it hasn't been filled by pcp for a long time, she is insistent that pcp fills it. Pt uses [facility] in [place]. Nicolasa Salazar LPN [facility]11-08-2023 Instructions* Patient Instructions* Sophia Castillo APRN.QUINTON - 02/18/2023 7:46 AM EST Get fasting labs in 6 months, water or black coffee only Continue appointments with specialists Continue to try to eat a well balanced diet, get physical activity Use Debrox ear drops to try to loosen ear wax Flu vaccine provided Follow up in 6 months or sooner as needed. documented in this encounterKeenan [facility]11-08-2023 History of Present illness Narrative* Sophia Castillo APRN.QUINTON - 02/18/2023 7:40 AM EST This is a 72 year old female [...] mg daily. HTN/CHF: Follows with Cardio Dr. De La Rosa. Denies any chest pains, dizziness, or SOB. [...] 231 mg 1 pill BID. No longer onRebif injections weekly. Follows with Neuro Dr. Clemente. REBECCA: Using CPAP nightly. Follows with Salomon Berger. Gets supplies through [employer]. HM - Declines Mammogram due to having [...] Pulmonary embolism (HCC) 07/2013 during hospitalization for NE Vitamin D deficiency PAST SURGICAL HISTORY Procedure [...] Father Diabetes Mother Coronary Artery Disease Mother NE's Coronary Artery Disease Brother 2 brothers CABG Aneurysm Brother Heart Sister NE's, valve replaced Stroke Sister Ovarian cancer Sister [...] METABOLIC PANEL 2. Coronary artery disease involving [place] coronary artery of [place] heart without angina pectoris- ICD9: 414.01, ICD10: I25.10 - Stable, follows with color shop helper 3. Congestive heart failure, unspecified HF chronicity, [...] effects were discussed and patient voices understanding. Sophia Castillo APRN.QUINTON This note was partially generated using [employer] voice recognition system. Note was reviewed for accuracy. There may be minor misspellings or grammar miscues with Dragon voice recognition. documented in this encounterKeenan [facility] Hospital08-08-2023 Miscellaneous Notes* Telephone Encounter - Dana Castillo - 11/18/2022 9:31 AM EDTSummary: Device While patient was in yesterday, she [...] Patient informed of above. documented in this encounterKeenan [facility] Hospital08-07-2023 Instructions* Patient Instructions* Clara Christianson APRN.CNP - 11/17/2022 2:48 PM EDT Always bring an updated medication list to every appointment. Your next appointment has been scheduled with Dr. De La Rosa [facility]. Please get FASTING bloodwork [...] breath, palpitations, stop exercise until symptoms go away,you can then resume activities. Watch for cardiac symptoms or any changes, if they persist call physician immediately. Wearing support stockings can help reduce fluid retention. Follow up with all other providers. Continue all current medications at this time. Call for any cardiac medication refills. Please call our office with any questions or concerns. documented in this encounterKeenan [facility] Hospital08-07-2023 History of Present illness Narrative* Clara Christianson APRN.CNP - 11/17/2022 1:30 PM EDTSummary: 1 year cardiology follow-up Images from the original note were not included. [facility] [place] OUTPATIENT VISIT DATE November 17, 2022 OUTPATIENT VISIT TYPE ESTABLISHED PATIENT PRIMARY CARE PHYSICIAN: Edmundo Cruz [address] [place] [address] HISTORY OF PRESENT ILLNESS: Ms. Albright is [...] work is obtained by her PCP in [place]. Patient states she is at her baseline ofshortness of breath, denies palpitations, lightheaded dizziness syncope or falls. Patient is in a wheeled walker. Patient has multiple sclerosis and has a brace on her right foot. Patient is on Eliquis and denies bleeding issues. Patient does not smoke and will have a rare alcoholic beverage at theidays. Patient wears her CPAP nightly. Patient is describing sharp chest pain over her pacemakersite in the upper left shoulder lasting 2 minutes in duration for the last several months. Patient says she rubs it and help soothe it. This only occurs at night when she is sitting in her recliner. Martha batres's device check shows 2 and half years [...] Pulmonary embolism (HCC) 07/2013 during hospitalization for NE Vitamin D deficiency PAST SURGICAL HISTORY Procedure [...] Father Diabetes Mother Coronary Artery Disease Mother NE's Coronary Artery Disease Brother 2 brothers CABG Aneurysm Brother Heart Sister NE's, valve replaced Stroke Sister Ovarian cancer Sister [...] Lymph 1.00 - 4.00 k/uL 0.88 (L) [place]% % 7.9 Abs [place] <0.87 k/uL 0.62 Eosin% % 0.9 Abs [...] Extra Large Adult) Ht 157.5 cm (5' 2") SpO2 97% BMI 40.68 kg/m Physical Exam [...] ELECTRONIC VENTRICULAR PACEMAKER VENT RATE 63 BPM ID INTERVAL 168 MS QRS DURATION 134 MS QT/QTC 444/454 MS P-R-T AXES 65 145 71 IMPRESSION AND RECOMMENDATIONS: Ms. Albright is a 71 year old female with history of 1. Coronary artery disease involving chickahominy indians-eastern division coronary artery of chickahominy indians-eastern division heart without angina pectoris Patient has history of coronary artery disease, status post CABG. patient reports to be at baselinewith her shortness of breath. Patient does not ambulate much and is deconditioned. Patient is in a wheeled walker due to her multiple sclerosis. 2. Bi -Ventricular ICD Patient underwent interrogation of her [employer] scientific BiV ICD. Patient has 2- 1/2 years until AMMON. No acute findings no changes made. 3. Essential hypertension Patient's blood pressure was 137/66. Patient is to follow a no added sodium diet and continue with her current medications. 4. Hyperlipidemia, unspecified hyperlipidemia type Patient is on pravastatin and denies myalgias. Patient's PCP Dr. Edmundo Moreno manage patient's lipids. Patient is to follow a low-cholesterol low-fat diet. 5. Congestive heart failure, unspecified HF chronicity, unspecified heart failure type (HCC) Patient has a history of heart failure who is compensated on today's exam. Patient is to follow a no added sodium in diet. Clara Christianson APRN.QUINTON documented in this encounterKeenan Private Hospital07-07-2023 Miscellaneous Notes* Telephone Encounter - Shara Oneil Ma - 10/17/2022 9:11 AM EDT Detailed message left on Avery's identified VM. Shara Oneil Ma * Telephone Encounter - Edmundo Cruz MD - 10/16/2022 5:10 PM EDT Pravachol increased to 40 mg Edmundo Cruz MD * Telephone Encounter - Don Whitman RN - 10/16/2022 4:33 PM EDT [facility] [employer] clinical- asking why pcp chose not to increase patient's statin. Reports patient was flagged by Medicare due to sclerotic heart disease, patients should be taking a moderate to high intensity cholesterol medication: 40 - 80 mg daily. Asking if there is anything preventing the doctor from increasing intensity of pravastatin. Please phone [facility] with reply. documented in this encounterKeenan Private Hospital06-07-2023 Miscellaneous Notes* Telephone Encounter - Lizbet Warren - 09/17/2022 2:04 PM EDT Both appt's. Are 1:00 and 1:30PM. I was in the middle of doing . Lizbet Warren * Telephone Encounter - Tami Esteban - 09/17/2022 1:54 PM EDT Patient called stating that she was talking to someone about changing her appt to 11/17 and the phonecall was disconnected. On 11/17 device check is scheduled for 11:30, but Clara Christianson appt is scheduledfor 1:30. Please call patient for appt date and time clarification @ [phone]. documented in this encounterKeenan Private Hospital05-09-2023 History of Present illness Narrative* Edmundo Cruz MD - 08/19/2022 9:20 AM EDT Chief Complaint Patient presents with: F/U 6 Month HPI Jenni Albright is a 71 year old female who presents here today for 6 month follow up. Here with , [place] and daughter, Lillian. No bowel, Gi, or urinary issues. GERD: Sx controlled on Nexium 40 mg daily. HTN/CHF: Follows with Cardio Dr. De La Rosa. Denies any chest pains, dizziness, or SOB. Does not check BP at home. Currently taking Coreg 25 mg half pill BID, Losartan 50 mg daily, and Aldactone 25 mg daily. Has a pacemaker. PE & DVT: Is on Eliquis 5 mg BID. CAD/Lipid/Glucose: Taking Plavix 75 mg daily, Tricor 145 mg daily and Pravastatin 20 mg daily. Doesnot watch diet or exercise. MS: Taking Tecfidera 240 mg BID, Gabapentin 800 mg QID and Vumerity 231 mg 1 pill BID. No longer onRebif injections weekly. Follows with Neuro Dr. Clemente. REBECCA: Using CPAP nightly. Feels this is working well for her. Follows with Salomon Berger. Gets supplies through [employer]. Pain - Located in L shoulder down [...] completed and reviewed. Based on score and interview,patient is not at risk for depression. Screening [...] Pulmonary embolism (HCC) 07/2013 during hospitalization for NE Vitamin D deficiency Previous Surgical History PAST [...] Father Diabetes Mother Coronary Artery Disease Mother NE's Coronary Artery Disease Brother 2 brothers CABG Aneurysm Brother Heart Sister NE's, valve replaced Stroke Sister Ovarian cancer Sister [...] in no acute distress, well-hydrated, well nourished. andObese. Lungs: Lungs clear to auscultation. No wheezing, [...] BP <130/80 2. Coronary artery disease involving chickahominy indians-eastern division coronary artery of chickahominy indians-eastern division heart without angina pectoris- ICD9: 414.01, ICD10: I25.10 - Check labs [...] unspecified HF chronicity, unspecified heart failure type ([facility]) - ICD9: 428.0, ICD10: I50.9 - Cont f/u with Cardiology - Continue current medication regimen. 12. PAF (paroxysmal atrial fibrillation) ([facility]) - ICD9: 427.31, ICD10: I48.0 - Stable - Continue current medication regimen. 13. Other pulmonary embolism without acute cor pulmonale, unspecified chronicity ([facility]) - ICD9: 415.19, ICD10: I26.99 - Stable [...] Past Histories independently gathered by the clinical production support engineer and the remaining scribed note accurately describes my personal service to the patient. Medical Decision Making: Problems: Moderate: 2+ stable chronic illnesses Risk: Moderate: Drug management Medical Decision Making Level: 4 - Moderate Edmundo Cruz MD The documentation for this note was completed by Leah Caruso Ma acting as scribe for Edmundo Cruz MD. August 19, 2022 9:25 AM. Leah Caruso Ma documented in this encounterKeenan Private Hospital05-02-2023 Miscellaneous Notes* Telephone Encounter - Edmundo Cruz MD - 08/12/2022 10:41 AM EDT Noted Edmundo Cruz MD * Telephone Encounter - Lacey Shelton RN - 08/12/2022 9:51 AM EDT Emmanuel with [employer] called in [...] the provider about it. documented in this encounterKeenan Private Hospital03-17-2023 Miscellaneous Notes* Telephone Encounter - Edmundo Cruz MD - 06/27/2022 3:42 PM EDT OK to refill as ordered Edmundo Cruz MD * Telephone Encounter - Kimi Padilla - 06/27/2022 3:17 PM EDT Pharmacy verified in [facility] Patient has been identified by name and [...] advise. Kimi Morin Pss documented in this encounterKeenan Private Hospital02-04-2023 Miscellaneous Notes* Telephone Encounter - Edmundo Cruz MD - 05/17/2022 8:57 AM EST OK to refill as ordered Edmundo Cruz MD * Telephone Encounter - Kimi Morin Pss - 05/16/2022 8:46 AM EST Pharmacy verified in [facility] Patient has been identified by name and [...] Take 1 tablet by mouth once daily. JESSIE-04/02/22 Labs-11/21/21 NOV-08/19/22 Date of last office visit : 04/02/2022 Date of next office visit : 08/19/2022 Last 2 Encounter Wt Readings: Date: Wt: 04/02/2022 100.9 kg (222 lb 6.4 oz) 02/13/2022 102.3 kg (225 lb 9.6 oz) Please advise. Kimi M Mikel Pss documented in this encounterKeenan Private Hospital01-17-2023 Miscellaneous Notes* Telephone Encounter - Ricardo Lo - 04/29/2022 10:17 AM ESTSummary: Appt Patient was seen yesterday. * Telephone Encounter - Cristine Linn - 04/28/2022 11:58 AM EST Please call pt and reschedule device check. documented in this encounterKeenan Private Hospital01-03-2023 Miscellaneous Notes* Telephone Encounter - Shara Oneil Ma - 04/15/2022 12:59 PM EST Below left on pt identified VM. Shara Oneil Ma * Telephone Encounter - Sophia Castillo APRN.CNP - 04/15/2022 12:42 PM EST Can you please let the patient know that I sent in an antibiotic called Levaquin, I want her to take this for the next 7 days. she needs to hold her magnesium and iron while she is on this antibioticdue to possible interaction. She can continue with any okyk-guq-vqbkarq cold and cough medication as needed. May use Mucinex to help get mucus out of the chest. Stay well-hydrated. If symptoms do not improve I would like her to contact the office. Repeat chest x-ray in 1 month. Thank you. Sophia Castillo APRN.CHILDB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 * Telephone Encounter - Kimi Gaxiola LPN - 04/15/2022 12:33 PM EST Patient notified of results, verbalizes understanding of instructions. Pt stated she is still coughing and left side of head congested. Kimi Gaxiola LPN * Telephone Encounter - Sophia Castillo APRN.CNP - 04/15/2022 12:26 PM EST Can you please call the patient and let her know that I reviewed her chest x-ray results. There is some increased density in the right which may represent infiltrate such as pneumonia. Can you please ask how she is feeling? If she is still having symptoms I would like to send in a different antibiotic. Thank you. Sophia Castillo APRN.QUINTON documented in this encounterKeenan Private Hospital12-27-2022 Miscellaneous Notes* Telephone Encounter - Kimi Gaxiola LPN - 04/08/2022 10:50 AM EST Patient notified of recommendations from CHILDB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, verbalizes understanding of instructions. Kimi Gaxiola LPN * Telephone Encounter - Sophia Castillo APRN.CNP - 04/08/2022 10:36 AM EST Can you please call the patient and let her know that I would recommend that she finish the doxycycline. If symptoms are not improving I would like to get a chest x-ray. Order is in. Sophia Castillo APRN.QUINTON * Telephone Encounter - Yareli Hood LPN - 04/08/2022 9:03 AM EST Patient calling was told to give report on how she is doing. Patient said she is not feeling any better, still wheezing, fever off and on, and green secretions. Patient completed prednisone rx, has 2days of cough syrup left and few days of doxycycline rx left. Patient asking what else did you wanther to do? Please advise documented in this encounterKeenan Private Hospital12-21-2022 Instructions* Patient Instructions* Sophia Castillo APRN.QUINTON - 04/02/2022 1:15 PM EST Start doxycyline , take with food. Take Prednisone 40 mg daily for 5 days. May use codeine cough syrup three times daily as needed. May make you sleeping. Do not take with Gabapentin. May use over the counter cold and cough medications as needed. Stay well hydrated. Follow up as needed. documented in this encounterKeenan Private Hospital12-21-2022 History of Present illness Narrative* Sophia Castillo APRN.QUINTON - 04/02/2022 1:00 PM EST This is a 71 year old female [...] Pulmonary embolism (HCC) 07/2013 during hospitalization for NE Vitamin D deficiency PAST SURGICAL HISTORY Procedure [...] Father Diabetes Mother Coronary Artery Disease Mother NE's Coronary Artery Disease Brother 2 brothers CABG Aneurysm Brother Heart Sister NE's, valve replaced Stroke Sister Ovarian cancer Sister [...] effects were discussed and patient voices understanding. Sophia Castillo APRN.QUINTON This note was partially generated using Zouxiu voice recognition system. Note was reviewed for accuracy. There may be minor misspellings or grammar miscues with Zouxiu voice recognition. documented in this encounterKeenan Private Hospital12-21-2022 Miscellaneous Notes* Telephone Encounter - Don Whitman RN - 04/02/2022 8:07 AM EST Protocol recommends see provider in 4 hours. [...] SOB 6. FEVER: No 7. CARDIAC HISTORY: NE, open heart surgery, has pacemaker. Takes BP medication. 8. LUNG HISTORY: Asthma. Uses symbicort bid. 9. PE RISK FACTORS: Hx of blood clots in charla legs. 10. OTHER SYMPTOMS: Wheezing. Runny nose / sinus pressure in mornings. 11. : No 12. TRAVEL: No exposures. No travel. has cough, mild sore throat. Protocols used: Cough - [id number] documented in this encounterKeenan Private Hospital11-14-2022 Miscellaneous Notes* Telephone Encounter - Lacey Shelton RN - 02/24/2022 12:00 PM EST Emmanuel with [facility] called in and reports they had talked with provider about increasing Pts statin due to her Cardiovascular disease. He asked if provider had in creased or addressed medicationchange in Pts last appointment. Let him know provider aid, "Hyperlipidemia, unspecified hyperlipidemia type - ICD9: 272.4, ICD10: E78.5 - good control - Continue current medication. - Encouraged following a low fat, low cholesterol diet. - Discussed the benefits of regular aerobic exercise and weight loss." He is going to fax information to providers office again for an answer as they would like to close the case out. Please call and advise. Extension goes to Emmanuel. documented in this encounterKeenan Private Hospital10-28-2022 Miscellaneous Notes* Telephone Encounter - Leah Caruso Ma - 02/07/2022 1:31 PM EDT Office received fax, routed to PCP to review and complete. Once complete fax back to [phone], Mynor Tadeo ([employer]). Leah Caruso Ma * Telephone Encounter - Edmundo Cruz MD - 02/07/2022 12:04 PM EDT Noted Edmundo Cruz MD * Telephone Encounter - Lacey Shelton RN - 02/07/2022 10:03 AM EDT [facility] Pharmacist called in and reports Pt will [...] questions you can call him directly at [phone] ext [phone]. He reports he will also be re-faxing some papers to providers office that had been faxedabout a month ago. documented in this encounterKeenan Private Hospital10-26-2022 Miscellaneous Notes* Telephone Encounter - Shara Oneil Ma - 02/05/2022 2:[address] Clemente, Neurologist is prescribing Gabapentin to pt. Lacey should contact their office if questions regarding medication. Shara Oneil Ma * Telephone Encounter - Mena Ayoub Pss - 02/05/2022 9:19 AM EDT Lacey called asking if fax from 11/19 regarding gabapentin had been received. She states she is going to send again today so that it can be gone over at patient's upcoming appointment. documented in this encounterKeenan Private Hospital09-09-2022 Miscellaneous Notes* Telephone Encounter - Deion Russell APRN.CNP - 12/20/2021 9:08 AM EDT Patient gets Gabapentin from her non-ccf neurologist. Deion Russell APRN.CNP * Telephone Encounter - Amira Cleve - 12/19/2021 11:35 AM EDT Patient has been identified by name and date of : Yes Requested Prescriptions Pending Prescriptions Disp Refills gabapentin (NEURONTIN) 800 mg tablet Sig: Take 1 tablet by mouth four times daily. JESSIE-08/09/21 Labs-11/21/21 NOV-02/13/22 med filled 02/08/21 RX INSTRUCTIONS: Patient states that the mg should be 900. Patient aware RX will be sent to pharmacy. No need to notify patient. Amira Poon documented in this encounterKeenan Private Hospital08-30-2022 Miscellaneous Notes* Telephone Encounter - Tami Esteban - 12/10/2021 9:32 AM EDT Opened in error documented in this encounterKeenan Private Hospital08-11-2022 History of Present illness Narrative* Shara Oneil Ma - 2021 4:43 PM EDT View External Lab - Hematology [ID [id number]] documented in this encounterKeenan Private Hospital08-09-2022 Miscellaneous Notes* Telephone Encounter - Charo Carpenter RN - 11/19/2021 4:53 PM EDT Lacey with [employer] calling to state she will be faxing over some forms for Dr. Cruz to review for patient. Asking to consider higher statin dosage for pt if appropriate. Thank you. documented in this encounterKeenan Private Hospital07-13-2022 Miscellaneous Notes* Telephone Encounter - Lucy Duvall - 10/23/2021 10:10 AM EDT I called and left a voicemail for patient that her device check is 04/28/22 @ 11:00 and her 1 year f/u appt with Dr. De La Rosa is 10/27/22 @ 12:45. I asked her to call back and r/s if she could not keep these appts. Lucy Duvall documented in this encounterKeenan Private Hospital07-12-2022 History of Present illness Narrative* Da De La Rosa MD - 10/22/2021 11:02 AM EDT Images from the original note were not included. [facility] OUTPATIENT VISIT DATE October 22, 2021 OUTPATIENT VISIT TYPE ESTABLISHED PRIMARY CARE PHYSICIAN: Edmundo Cruz [address] [place] [address] CHIEF COMPLAINT: Follow Up (6 month follow [...] Pulmonary embolism (HCC) 07/2013 during hospitalization for NE Vitamin D deficiency PAST SURGICAL HISTORY Procedure [...] Father Diabetes Mother Coronary Artery Disease Mother NE's Coronary Artery Disease Brother 2 brothers CABG Aneurysm Brother Heart Sister NE's, valve replaced Stroke Sister Ovarian cancer Sister [...] 67 Resp 20 Ht 157.5 cm (5' 2") Wt 98.9 kg (218 lb) SpO2 99% BMI 39.87 kg/m Physical Exam Obese. No thyroid swelling. No Nicholes distention. Lungs: Clear, unlabored breathing at rest. Heart examination S1-S2 is regular. Grade 2/6 soft systolic murmur in left parasternal area. Pacemaker site and left subclavian region is clean without any tenderness. Abdomen: Soft and benign. Normal peristalsis. EXECUTIVE RELATIONS SPECIALIST: Conscious, alert, oriented x3 she walks with a walker. Range of motion limited with history ofmultiple sclerosis. CARDIOVASCULAR MEDICINE TESTING: EKG done today [...] with Eliquis. Last blood work done at [facility] on 10/11/2021 hemoglobin 12.9 with normal platelet count 261,000 random blood glucose 109, CMP otherwise unremarkable triglyceride, 82 total cholesterol 148. Normal kidney function. Pacemaker device check today shows ATR burden less than 1% with 1 episode of A. fib lasting only 5 seconds. Normal device function. Advised to continue current medical therapy. Da De La Rosa MD documented in this encounterKeenan Private Hospital04-29-2022 History of Present illness Narrative* Edmundo Cruz MD - 08/09/2021 9:00 AM EDT Chief Complaint Follow up HPI Jenni Albright is a 70 year old female who presents here today for 6 month follow up. Here with her . Overall doing OK; no specific complaints Denies any bowel, Gi, or urinary concerns. GERD: Stable on Nexium 40 mg daily. Dyspnea: Uses Symbicort inhaler and follows with PulDr. Fernandez. PE & DVT: Taking Eliquis 5 mg [...] exercise. Has a pacemakers, follows with Dr. De La Rosa, Bioprocessing Manufacturing Technician. REBECCA: Uses CPAP every night, feels this is working well for her. MS: Follows with Neurologist in [place], Dr. Clemente. Getting Rebif injections weekly, Tecfidera 240mg BID and Gabapentin 800 mg QID. No [...] Pulmonary embolism (HCC) 07/2013 during hospitalization for NE Vitamin D deficiency Previous Surgical History PAST [...] Father Diabetes Mother Coronary Artery Disease Mother NE's Coronary Artery Disease Brother 2 brothers CABG Aneurysm Brother Heart Sister NE's, valve replaced Stroke Sister Ovarian cancer Sister [...] in no acute distress, well-hydrated, well nourished. andObese. Lungs: Lungs clear to auscultation. No wheezing, [...] PANEL BASIC 3. Coronary artery disease involving chickahominy indians-eastern division coronary artery of chickahominy indians-eastern division heart without angina pectoris- ICD9: 414.01, ICD10: I25.10 4. Essential hypertension [...] Decision Making Level: 4 - Moderate Edmundo Cruz MD documented in this encounterKeenan Private Hospital03-24-2022 Miscellaneous Notes* Telephone Encounter - Deion Russell APRN.CNP - 07/04/2021 12:33 PM EDT The following approved medication requests have been transmitted electronically. Pending Prescriptions Disp Refills SPIRONOLACTONE 25 MG TABLET 90 tablet 3 Sig: Take 1 tablet by mouth once daily. WILBER: No Deion Russell APRN.CNP * Telephone Encounter - Coty Joseph Pss - 07/04/2021 11:00 AM EDT Patient has been identified by name and date of : Yes Pending Prescriptions Disp Refills SPIRONOLACTONE 25 MG TABLET 90 tablet 3 Sig: Take 1 tablet by mouth once daily. WILBER: No JESSIE-02/08/21 Labs-10/01/20 NOV-08/09/21 med filled 04/02/20 RX INSTRUCTIONS: Patient aware RX will be sent to pharmacy. No need to notify patient. Coty Joseph Pss documented in this encounterKeenan Private Hospital05-21-2021 [facility]05-20-2021 NotePhysical Therapy Inpatient Evaluation Medical Diagnosis: dyspnea, tachypnea, CAD Therapy Diagnosis: Rank Code Description 1 R26.2 Difficulty in walking, not elsewhere classified 2 R26.81 Unsteadiness on feet Demographics: Age: 69Y Gender: Female Primary Language: Romanian Preferred Language: Romanian Referring Service/Team: Medicine Past Medical History: Hypertension, [...] status post IVC filter, who presents to [facility] with shortness of breath over the past few days worsening in nature, orthopnea, dyspnea at rest. Patient was just admitted at [facility] THE END OF JULY for chest pain work-up and had an echo and stress done at that time which showed no acute findings. 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 copied from [employer] Date of Admission: 08/29/2020 5:00:00 PM Rehabilitation Precautions/Restrictions: fall risk [facility] PATIENT NAME: JENNI ALBRIGHT [address] [facility] [address] MEDICAL REC #: [id number] [place] [address] ADMIT DATE: 08/29/20 SERVICE DATE: 08/30/20 Physical Therapy Assessment Report ATTENDING PHY: Yesenia Casanova DO Imaging/Testing Results from Chart: Chest/thorax CTA [...] home Pain: Patient currently has pain. Location: "MS pain" Type: Chronic Quality: Aching. Pain Scale: Visual [...] Reside: one lives with her, 1 in [place] and 1 in [place] Employment Status: NOT WORKING Recreational Activities/Hobbies: MARIE, computer games, traveling [facility] PATIENT NAME: JENNI ALBRIGHT [address] [facility] [address] MEDICAL REC #: [id number] [place] [address] ADMIT DATE: 08/29/20 SERVICE DATE: 08/30/20 Physical Therapy Assessment Report ATTENDING ABDIAZIZ: Yesenia Casanova DO OBJECTIVE Cognitive Screen Responsiveness: Alert. Orientation: Oriented to person, place, time, and situation. Following Commands: Patient is able to follow 3-step commands. Range of Motion Upper Extremity: Grossly within functional limits Lower Extremity: Grossly within functional limits Strength Upper Extremity: Grossly within func (more content not included)...[facility]* Diagnosis Coronary artery disease involving chickahominy indians-eastern division coronary artery of chickahominy indians-eastern division heart without angina pectoris Essential hypertension Unspecified essential hypertension [facility] this encounter [facility]* Diagnosis Onset Date Resolution Status Fatigue acute Low back pain acute Multiple sclerosis chronic Fatigue acute Low back pain acute Multiple sclerosis chronic Asthma acute Morbid obesity chronic REBECCA (obstructive sleep apnea) [facility] Work Phone: Evaluation note* Diagnosis Multiple sclerosis (HCC)- Primary Multiple sclerosis Hyperlipidemia, unspecified hyperlipidemia type Coronary artery disease involving chickahominy indians-eastern division coronary artery of chickahominy indians-eastern division heart without angina pectoris Essential hypertension Unspecified essential hypertension Elevated glucose Other abnormal glucose documented in this encounter [facility]* Diagnosis Encounter for screening mammogram for breast cancer documented in this encounter [facility]* Diagnosis Coronary artery disease involving chickahominy indians-eastern division coronary artery of chickahominy indians-eastern division heart without angina pectoris- Primary PAF (paroxysmal atrial fibrillation) (HCC) Atrial fibrillation documented in this encounter [facility] noteNo assessment information availableWMercy Health St[facility] Work Phone: Evaluation note* Diagnosis Onset Date Resolution Status Dysphagia acute Pain of left calf acute Multiple sclerosis [facility] Work Phone: Evaluation note* Diagnosis Onset Date Resolution Status Dysphagia acute Pain of left calf acute Multiple sclerosis chronic Asthma acute Morbid obesity chronic Multiple sclerosis chronic REBECCA (obstructive sleep apnea) [facility] Work Phone: Evaluation note* Diagnosis Multiple sclerosis (HCC) [facility] Diagnosis Bacterial pneumonia- Primary Bacterial pneumonia, unspecified documented in this encounter [facility] note* Diagnosis Bacterial pneumonia- Primary Bacterial pneumonia, unspecified documented in this encounter [facility] note* Diagnosis Acute cough- Primary documented in this encounter [facility] note* Diagnosis Congestive heart failure, unspecified HF chronicity, unspecified heart failure type (HCC)- Primary documented in this encounter [facility] note* Diagnosis Coronary artery disease involving chick[place]om[place] indians[place] division coronary artery of [place] heart without angina pectoris Medication refill Issue of repeat prescriptions Hyperlipidemia, unspecified hyperlipidemia type Gastroesophageal reflux disease, unspecified whether esophagitis present documented in this encounter [facility] note* Diagnosis Essential hypertension Unspecified essential hypertension Coronary artery disease involving chick[place]om[place] indians[place] division coronary artery of chick[place]ians[place] heart without angina pectoris documented in this encounter [facility] note* Diagnosis Essential hypertension- Primary Unspecified essential hypertension Coronary artery disease involving chick[place]om[place] indians[place] division coronary artery of chick[place] heart without angina pectoris Elevated glucose Other abnormal glucose Hyperlipidemia, unspecified hyperlipidemia type History of DVT (deep vein thrombosis) Personal history of venous thrombosis and embolism Gastroesophageal reflux disease, unspecified whether esophagitis present Multiple sclerosis (HCC) Multiple sclerosis REBECCA (obstructive sleep apnea) Obstructive sleep apnea (adult) (pediatric) Spastic hemiplegia, unspecified etiology, unspecified laterality (HCC) Morbid obesity (HCC) Morbid obesity Congestive heart failure, unspecified HF chronicity, unspecified heart failure type (HCC) PAF (paroxysmal atrial fibrillation) (HCC) Atrial fibrillation Other pulmonary embolism without acute cor pulmonale, unspecified chronicity (HCC) Left elbow tendonitis documented in this encounter [facility] note* Diagnosis Hyperlipidemia, unspecified hyperlipidemia type documented in this encounter [facility] note* Diagnosis Onset Date Resolution Status Multiple sclerosis chronic History of vitamin D deficiency resolved [facility] Work Phone: Evaluation note* Diagnosis Coronary artery disease involving chick[place]om[place] indians[place] division coronary artery of chick[place] heart without angina pectoris- Primary Cardiac pacemaker Cardiac pacemaker in situ Essential hypertension Unspecified essential hypertension Hyperlipidemia, unspecified hyperlipidemia type Congestive heart failure, unspecified HF chronicity, unspecified heart failure type (HCC) REBECCA (obstructive sleep apnea) Obstructive sleep apnea (adult) (pediatric) Biventricular implantable cardioverter-defibrillator (ICD) in situ Obesity, Class III, BMI >= 40 Morbid obesity documented in this encounter [facility] note* Diagnosis Congestive heart failure, unspecified HF chronicity, unspecified heart failure type (HCC)- Primary documented in this encounter [facility] note* Diagnosis Essential hypertension- Primary Unspecified essential hypertension Coronary artery disease involving chick[place]om[place] indians[place] division coronary artery of chick[place] heart without angina pectoris Congestive heart failure, [...] ear Impacted cerumen [facility] Diagnosis Acute pain of left shoulder- Primary [facility] Diagnosis Onset Date Resolution Status Multiple sclerosis chronic [facility] Work Phone: [facility]* Diagnosis Congestive heart failure, unspecified HF chronicity, unspecified heart failure type (HCC)- Primary [facility]* Diagnosis Hyperlipidemia, unspecified hyperlipidemia type- Primary Elevated glucose Other abnormal glucose Serum calcium elevated Hypercalcemia [facility]* Diagnosis Encounter for screening mammogram for breast cancer [facility] Diagnosis Congestive heart failure, unspecified HF chronicity, unspecified heart failure type (HCC)- Primary [facility]* Diagnosis Routine check-up- Primary Routine general medical examination at a health care facility Coronary artery disease involving chick[place]om[place] indians[place] division coronary artery of chick[place]ians[place] heart without angina pectoris Essential hypertension Unspecified essential hypertension Pacemaker Cardiac pacemaker in situ Paroxysmal atrial fibrillation (HCC) Atrial fibrillation Nonsustained ventricular tachycardia (HCC) Paroxysmal ventricular tachycardia [facility]* Diagnosis Hyperlipidemia, unspecified hyperlipidemia type [facility] Diagnosis [facility] Diagnosis Dysuria- Primary Urinary frequency [facility]* Diagnosis Arthritis of left shoulder region- Primary Unspecified arthropathy, shoulder region [facility]* Diagnosis Hematuria, unspecified type- Primary [facility] Diagnosis Hypercalcemia- Primary [facility]* Diagnosis Multiple sclerosis (HCC) Multiple sclerosis [facility]* Diagnosis Essential hypertension- Primary Unspecified essential hypertension Coronary artery disease involving chick[place] indians[place] division coronary artery of chick[place] heart without angina pectoris Congestive heart failure, unspecified HF chronicity, unspecified heart failure type (HCC) Hyperlipidemia, unspecified hyperlipidemia type History of DVT (deep vein thrombosis) Personal history of venous thrombosis and embolism REBECCA (obstructive sleep apnea) Obstructive sleep apnea (adult) (pediatric) Elevated glucose Other abnormal glucose Multiple sclerosis (HCC) Multiple sclerosis Encounter for immunization Need for other specified prophylactic vaccination against single bacterial disease Screening for depression Encounter for screening examination for other mental health and behavioral disorders [facility] Diagnosis Routine check-up Routine general medical examination at a health care facility Coronary artery disease involving chick[place]om[place] indians[place] division coronary artery of chick[place] heart without angina pectoris Essential hypertension Unspecified essential hypertension Pacemaker Cardiac pacemaker in situ Paroxysmal atrial fibrillation (HCC) Atrial fibrillation Nonsustained ventricular tachycardia (HCC) Paroxysmal ventricular tachycardia [facility] Routine check-up Routine general medical examination at a [facility] facility Coronary artery disease involving chickahom[place] indians[place] division coronary artery of chick[place]om[place] indians[place] division heart without angina pectoris Essential hypertension Unspecified essential hypertension Pacemaker Cardiac pacemaker in situ Paroxysmal atrial fibrillation (HCC) Atrial fibrillation Nonsustained ventricular tachycardia (HCC) Paroxysmal ventricular tachycardia [facility] Hypercalcemia- Primary [facility] Diagnosis Cardiac resynchronization therapy pacemaker (IMCU NURSE-P) in place- Primary Encounter to establish care Other reasons for seeking consultation Complete heart block (HCC) Atrioventricular block, complete PAF (paroxysmal atrial fibrillation) (HCC) Atrial fibrillation Hx of CABG Postsurgical aortocoronary bypass status [facility] History of DVT (deep vein thrombosis) Personal history of venous thrombosis and embolism [facility] Diagnosis Vitamin D deficiency- Primary Unspecified vitamin D deficiency Hypercalcemia [facility] Diagnosis Coronary artery disease involving chickahom[place] indians[place] division coronary artery of chick[place] heart without angina pectoris [facility] Diagnosis Congestive heart failure, unspecified HF chronicity, unspecified heart failure type (HCC)- Primary [facility] Diagnosis Vitamin D deficiency- Primary Unspecified vitamin D deficiency Hypercalcemia [facility] Diagnosis Hyperlipidemia, unspecified hyperlipidemia type Essential hypertension Unspecified essential hypertension [facility] Diagnosis Gastroesophageal reflux disease, unspecified whether esophagitis present Essential hypertension Unspecified essential hypertension Coronary artery disease involving chick[place]om[place] indians[place]eastern division coronary artery of chick[place] division heart without angina pectoris [facility] Diagnosis Vitamin D deficiency, unspecified Pacemaker reprogramming/check Fitting and adjustment of cardiac pacemaker Pacemaker reprogramming/check Fitting and adjustment of cardiac pacemaker [facility]* Diagnosis Essential hypertension- Primary Unspecified essential hypertension Multiple sclerosis (HCC) Multiple sclerosis Neuropathic pain Neuralgia, neuritis, and radiculitis, unspecified Hyperlipidemia, unspecified hyperlipidemia type Gastroesophageal reflux disease, unspecified whether esophagitis present REBECCA (obstructive sleep apnea) Obstructive sleep apnea (adult) (pediatric) Iron deficiency anemia, unspecified iron deficiency anemia type Coronary artery disease involving chick[place]om[place] indians[place] division coronary artery of chick[place] indians[place] division heart without angina pectoris Vitamin D deficiency Unspecified vitamin D deficiency Morbid obesity (HCC) Morbid obesity Congestive heart failure, unspecified HF chronicity, unspecified heart failure type (HCC) PAF (paroxysmal atrial fibrillation) (HCC) Atrial fibrillation Transient ischemic attack Unspecified transient cerebral ischemia Mild intermittent asthma without complication (HCC) Unspecified asthma Pacemaker reprogramming/check Fitting and adjustment of cardiac pacemaker Pacemaker reprogramming/check Fitting and adjustment of cardiac pacemaker [facility]* Diagnosis Pacemaker reprogramming/check Fitting and adjustment of cardiac pacemaker Pacemaker reprogramming/check Fitting and adjustment of cardiac pacemaker [facility]* Diagnosis Coronary artery disease involving chick[place]om[place] indians[place] division coronary artery of chick[place] indians[place] division heart without angina pectoris- Primary Complete heart block (HCC) Atrioventricular block, complete Cardiac resynchronization therapy pacemaker (IMCU NURSE-P) in place PAF (paroxysmal atrial fibrillation) (HCC) Atrial fibrillation Essential hypertension Unspecified essential hypertension Pacemaker reprogramming/check Fitting and adjustment of cardiac pacemaker [facility]* Diagnosis Primary hyperparathyroidism (HCC)- Primary Primary hyperparathyroidism Pacemaker reprogramming/check Fitting and adjustment of cardiac pacemaker [facility]* Diagnosis Primary hyperparathyroidism (HCC) Primary hyperparathyroidism Pacemaker reprogramming/check Fitting and adjustment of cardiac pacemaker [facility]* Diagnosis Primary hyperparathyroidism (HCC)- Primary Primary hyperparathyroidism Hypercalcemia Vitamin D deficiency Unspecified vitamin D deficiency Pacemaker reprogramming/check Fitting and adjustment of cardiac pacemaker [facility]* Diagnosis Multiple sclerosis (HCC) Multiple sclerosis Pacemaker reprogramming/check Fitting and adjustment of cardiac pacemaker [facility] Diagnosis Hyperlipidemia, unspecified hyperlipidemia type Pacemaker reprogramming/check Fitting and adjustment of cardiac pacemaker documented in this encounter [facility] Discharge instructionsAmbulatory Orders* Podiatry Location: None Selected [facility] Work Phone: Hospital Discharge instructions Additional Instructions 1. Please keep your surgical dressing clean dry and intact. Do not remove. Do not get it wet. 2. Continue rest ice and elevate per your postoperative instructions that were given to you at the day of your surgical consultation while in office. 3. Please take all pain medication and prescriptions as written. 4. If you are a diabetic patient please continue tight glucose control while in the postoperative phase. 5. Please continue to follow-up with all your doctors visits prior and after surgery. 6. Please reach out to Dr. Franco, through the paging system in the hospital or private office with any questions or concerns. 7. Thank you for letting me be involved in your surgical care! Implant Used?: Yes [facility] Work Phone: Reason for referral (narrative)* Diagnostic Procedure Only (Routine) - Pending Review Specialty Diagnoses / Procedures Referred By Meron swenson Referred To Contact [facility] Diagnoses Encounter for screening mammogram for breast cancer Procedures TIRSO SCREENING SCREENING MAMMOGRAPHY BI 2-VIEW BREAST INC CAD Edmundo Cruz MD [address] [place] [address] [facility] [address] [place] [address] Referral ID Status Reason Start Date Expiration Date Visits Requested Visits Authorized [id number] Pending Review Auto-Generat ed Referral 10/09/2021 11/08/2022 1 1 [facility] for referral (narrative)* Outpatient Procedure (Routine) - Pending Review Specialty Diagnoses / Procedures Referred By Meron swenson Referred To Contact [facility] Diagnoses Coronary artery disease involving chickahom[place] indians-e[place] division coronary artery of chick[place]om[place] indians[place] division heart without angina pectoris PAF (paroxysmal atrial fibrillation) (HCC) Procedures ECG COMPLETE ECG ROUTINE ECG W/LEAST 12 LDS W/I&R Da De La Rosa MD [address] [address] [facility] [place] [address] [place] [address] Referral ID Status Reason Start Date Expiration Date Visits Requested Visits Authorized [id number] Pending Review Auto-Generat ed Referral 10/22/2021 10/22/2022 1 1 [facility] for referral (narrative)* Diagnostic Procedure Only (Routine) - Pending Review Specialty Diagnoses / Procedures Referred By Yashiraac t Referred To Contact XR IMAGING Diagnoses Acute pain of left shoulder Procedures XR SHOULDER GENERAL 3V OR MORE AP/TRUE AP/OTHER LEFT RADEX SHOULDER COMPLETE MINIMUM 2 VIEWS Ej Rodriguez V, DO [address] [place] [address] [place] [address] Referral ID Status Reason Start Date Expiration Date Visits Requested Visits Authorized [id number] Pending Review Auto-Generat ed Referral 04/28/2024 1 1 [facility] for referral (narrative)* Diagnostic Procedure Only (Routine) - Pending Review Specialty Diagnoses / Procedures Referred By Meron swenson Referred To Contact [facility] Diagnoses Encounter for screening mammogram for breast cancer Procedures TIRSO SCREENING SCREENING MAMMOGRAPHY BI 2-VIEW BREAST INC CAD Edmundo Cruz MD [address] [place] [address] [facility] [address] [place] [address] Referral ID Status Reason Start Date Expiration Date Visits Requested Visits Authorized [id number] Pending Review Auto-Generat ed Referral 08/26/2023 09/24/2024 1 1 [facility] for referral (narrative)* Diagnostic Procedure Only (Routine) - New Request Specialty Diagnoses / Procedures Referred By Meron t Referred To Contact [facility]AL [facility] Diagnoses Routine check-up Coronary artery disease involving chick[place]om[place] indians[place] division coronary artery of chick[place] indians[place] division heart without angina pectoris Essential hypertension Pacemaker Paroxysmal atrial fibrillation (HCC) Nonsustained ventricular tachycardia (HCC) Procedures NM CARDIAC PERF STRESS/PHARM MYOCARDIAL SPECT MULTIPLE STUDIES Da De La Rosa MD [address] [place] [address] [facility] [address] [place] [address] Referral ID Status Reason Start Date Expiration Date Visits Requested Visits Authorized [id number] New Request Auto-Generat ed Referral 01/09/2024 01/07/2025 1 1 [facility] for referral (narrative)* Diagnostic Procedure Only (Routine) - Closed Specialty Diagnoses / Procedures Referred By Contac t Referred To Contact [facility] Diagnoses Routine check-up Coronary artery disease involving chickahom[place] indians[place] division coronary artery of chick[place] indians[place] division heart without angina pectoris Essential hypertension Pacemaker Paroxysmal atrial fibrillation (HCC) Nonsustained ventricular tachycardia (HCC) Procedures NM CARDIAC PERF STRESS/PHARM MYOCARDIAL SPECT MULTIPLE STUDIES Da De La Rosa MD [address] [place] [address] [facility] [address] [place] [address] Referral ID Status Reason Start Date Expiration Date V isits Requested Visits Authorized [id number] Closed Auto-Generate d Referral 03/04/2024 06/02/2024 1 1 [facility] for referral (narrative)* Outpatient Procedure (Routine) - New Request Specialty Diagnoses / Procedures Referred By Contac t Referred To Contact [facility] Diagnoses Complete heart block (HCC) Cardiac resynchronization therapy pacemaker (IMCU NURSE-P) in place Procedures ECHO ECHO TTHRC R-T 2D W/WOM-MODE COMPL SPEC&COLR D Jerri Draper MD [address] [place] [address] [facility] [address] [place] [address] Referral ID Status Reason Start Date Expiration Date Visits Requested Visits Authorized [id number] New Request Auto-Generat ed Referral 05/05/2024 05/05/2025 1 1 [facility] for referral (narrative)No reason for referral information [facility] Diagnostic Procedure Only (Routine) - Closed Specialty Diagnoses / Procedures Referred By Contac t Referred To Contact [facility]LECULAR [facility] FUNCTIONAL IMAGING Diagnoses Routine check-up Coronary artery disease involving chick[place]om[place] indians[place] division coronary artery of chick[place] indians[place] division heart without angina pectoris Essential hypertension Pacemaker Paroxysmal atrial fibrillation (HCC) Nonsustained ventricular tachycardia (HCC) Procedures NM CARDIAC PERF STRESS/PHARM MYOCARDIAL SPECT MULTIPLE STUDIES Da De La Rosa MD [address] [place] [address] [facility] [address] [place] [address] Referral ID Status Reason Start Date Expiration Date V isits Requested Visits Authorized [id number] Closed Auto-Generate d Referral 03/04/2024 06/02/2024 1 1 [facility] for visit Narrative* Diagnostic Procedure Only (Routine) - Closed Specialty Diagnoses / Procedures Referred By Contac t Referred To Contact XR IMAGING Diagnoses Primary hyperparathyroidism (HCC) Procedures DXA-FOREARM SKELETON DXA BONE DENSITY STUDY /SITES APPENDICLR Narcisa King MD [address] [place] [address] Phone: tel: fax: [facility] [place] [address] Referral ID Status Reason Start Date Expiration Date V isits Requested Visits Authorized [id number] Closed Auto-Generate d Referral 09/29/2024 10/29/2025 1 1 [facility] Summary Purpose Family History No Family History Records Found Relationship Condition Age at Onset Recorded Date/T nicolás mother Diabetes mellitus Unknown Myocardial infarction Unknown father Malignant neoplasm Unknown brother Malignant neoplasm Unknown sister Unknown Cerebrovascular accident (CVA) Unknown Malignant neoplasm of cervix Unknown Advance Directives No Advanced Directives Records Found Advance Directive Response Recorded Date/ Time Advance Directives Yes May 4:16pm Living Will Yes August 03, 2020 12:53am Power of Mingler Operator Yes August 03 12:53am Advance Directive Response Recorded Date/ Time Name of Medical Power of Mingler Operator OR JONA MCGRATH April 30, 2023 8:34am Advance Directives Yes May 3:16pm Living Will Yes April 30 8:34am Power of Mingler Operator Yes April 30, 2023 8:34am Advance Directive Response Recorded Date/ Time Living Will Yes April 30 9:34am Power of Mingler Operator Yes April 30, 2023 9:34am Advance Directives Yes May 4:16pm Advance Directive Response Recorded Date/ Time Advance Directives Yes May 4:16pm Advance Directive Response Recorded Date/ Time Living Will Yes April 30 9:34am Do you have a Healthcare Power of Mingler Operator? Yes April 30, 2023 9:34am Advance Directives Yes May 4:16pm Chief Complaint and Reason for Visit Chief Complaint 1 M FU 2 M FU 3 M FU REBECCA; LM 06/27 Reason for Visit Fatigue Low back pain Multiple sclerosis Fatigue Low back pain Multiple sclerosis Asthma Morbid obesity REBECCA (obstructive sleep apnea) Chief Complaint 6 M FU EORDER Reason for Visit Dysphagia Pain of left calf Multiple sclerosis Chief Complaint 6 M FU EORDER 6 M FU DYSPHAGIA Reason for Visit Dysphagia Pain of left calf Multiple sclerosis Asthma Morbid obesity Multiple sclerosis REBECCA (obstructive sleep apnea) Chief Complaint 6 M FU EORDER 6 M FU DYSPHAGIA DYSPHAGIA/RX HERE Reason for Visit Dysphagia Pain of left calf Multiple sclerosis Asthma Morbid obesity Multiple sclerosis REBECCA (obstructive sleep apnea) Chief Complaint 6 M FU EORDER 6 M FU DYSPHAGIA DYSPHAGIA/RX HERE 1000 MG METHYLPREDNISOLONE 1000 MG METHYLPREDNISOLONE 1000 MG METHYLPREDNISOLONE Reason for Visit Dysphagia Pain of left calf Multiple sclerosis Asthma Morbid obesity Multiple sclerosis REBECCA (obstructive sleep apnea) Chief Complaint 5 MO FU EORDER Reason for Visit Multiple sclerosis History of vitamin D deficiency Chief Complaint 5 MO FU EORDER OSTEO Reason for Visit Multiple sclerosis History of vitamin D deficiency Chief Complaint 5 MO FU EORDER OSTEO PVD Reason for Visit Multiple sclerosis History of vitamin D deficiency Chief Complaint 4 M FU Right foot PIPJ fusion of the 2nd a Reason for Visit Multiple sclerosis Chief Complaint Admit Date 6 M FU March 17, 2024 8 :32am METHYLPREDNISOLONE March 21, 2024 1 2:39pm METHYLPREDNISOLONE March 22, 2024 12:34pm METHYLPREDNISOLONE March 23, 2024 12:32pm LUE swelling, mass and lump, R/O LIPOMA June 16, 2024 7:09am Reason for Visit Admit Date Multiple sclerosis March 17, 2024 8 :32am History of vitamin D deficiency March 17, 2024 8:32am Chief Complaint Admit Date LUE swelling, mass and lump, R/O LIPOMA June 16, 2024 7:09am 4 M FU July 21, 2024 8:2 1am E-ORDER July 21, 2024 9:2 2am Reason for Visit Admit Date Hypercalcemia July 21, 2024 8:2 1am Multiple sclerosis July 21, 2024 8:2 1am Chief Complaint Admit Date LUE swelling, mass and lump, R/O LIPOMA June 16, 2024 7:09am 4 M FU July 21, 2024 8:2 1am E-ORDER July 21, 2024 9:2 2am LT SHOULDER ASP August 25, 2024 12:24 pm Reason for Visit Admit Date Hypercalcemia July 21, 2024 8:2 1am History of vitamin D deficiency July 212024 8:21am Multiple sclerosis July 21, 2024 8:2 1am Chief Complaint Admit Date LUE swelling, mass and lump, R/O LIPOMA June 16, 2024 7:09am 4 M FU July 21, 2024 8:2 1am E-ORDER July 21, 2024 9:2 2am LT SHOULDER ASP August 25, 2024 12:24 pm 1 Y FU September 09, 2024 9:17a m Reason for Visit Admit Date Hypercalcemia July 21, 2024 8:2 1am History of vitamin D deficiency July 212024 8:21am Multiple sclerosis July 21, 2024 8:2 1am Asthma September 09, 2024 9:17a m Morbid obesity September 09, 2024 9:17a m REBECCA (obstructive sleep apnea) September 09, 2024 9:17am Reason for Referral Specialty Diagnoses / Procedures Referred By Meron swenson Referred To Contact Endocrinology Diagnoses Hypercalcemia Procedures CONSULT TO ENDOCRINOLOGY OFFICE/OUTPATIENT [facility] 60 MINUTES Deion Russell APRN.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 [address] [place] [address] Referral ID Status Reason Start Date Expiration Date Visits Requested Visits Authorized [id number] Pending Review PCP Requested Referral 02/15/2024 02/14/2025 1 1 Additional Source Comments INFORMATION SOURCE (unrecogn ized section and content) DATE CREATED AUTHOR 12/09/2017 [facility] ([place]) DATE CREATED AUTHOR AUTHOR'S ORGANIZ ATION 06/04/2021 [facility] [place] DATE CREATED AUTHOR AUTHOR'S ORGANIZ ATION 09/24/2024 [facility] DATE CREATED AUTHOR AUTHOR'S ORGANIZ ATION 11/04/2024 [facility] DATE CREATED AUTHOR AUTHOR'S ORGANIZ ATION 11/04/2024 [facility] DATE CREATED AUTHOR AUTHOR'S ORGANIZ ATION 01/28/2025 [facility] Source Comments (unrecognize d section and content) In the event this informatio n is protected by the Federal Confidentiality of Alcohol and Drug Abuse Patient Records regulations: The Federal rules restrict any use of the information to criminally investigate or prosecute any alcohol or drug abuse patient.[facility] the event this information is protected by the Federal Confidentiality of Alcohol and Drug Abuse Patient Records regulations: The Federal rules restrict any use of the information to criminally investigate or prosecute any alcohol or drug abuse patient.[facility]In the event this information is protected by the Federal Confidentiality of Alcohol and Drug Abuse Patient Records regulations: The Federal rules restrict any use of the information to criminally investigate or prosecute any alcohol or drug abuse patient.[facility]In the event this information is protected by the Federal Confidentiality of Alcohol and Drug Abuse Patient Records regulations: The Federal rules restrict any use of the information to criminally investigate or prosecute any alcohol or drug abuse patient.[facility]In the event this information is protected by the Federal Confidentiality of Alcohol and Drug Abuse Patient Records regulations: The Federal rules restrict any use of the information to criminally investigate or prosecute any alcohol or drug abuse patient.[facility]In the event this information is protected by the Federal Confidentiality of Alcohol and Drug Abuse Patient Records regulations: The Federal rules restrict any use of the information to criminally investigate or prosecute any alcohol or drug abuse patient.[facility] HospitalIn the event this information is protected by the Federal Confidentiality of Alcohol and Drug Abuse Patient Records regulations: The Federal rules restrict any use of the information to criminally investigate or prosecute any alcohol or drug abuse patient.[facility]In the event this information is protected by the Federal Confidentiality of Alcohol and Drug Abuse Patient Records regulations: The Federal rules restrict any use of the information to criminally investigate or prosecute any alcohol or drug abuse patient.[facility] HospitalIn the event this information is protected by the Federal Confidentiality of Alcohol and Drug Abuse Patient Records regulations: The Federal rules restrict any use of the information to criminally investigate or prosecute any alcohol or drug abuse patient.[facility] HospitalIn the event this information is protected by the Federal Confidentiality of Alcohol and Drug Abuse Patient Records regulations: The Federal rules restrict any use of the information to criminally investigate or prosecute any alcohol or drug abuse patient.[facility] HospitalIn the event this information is protected by the Federal Confidentiality of Alcohol and Drug Abuse Patient Records regulations: The Federal rules restrict any use of the information to criminally investigate or prosecute any alcohol or drug abuse patient.[facility] HospitalIn the event this information is protected by the Federal Confidentiality of Alcohol and Drug Abuse Patient Records regulations: The Federal rules restrict any use of the information to criminally investigate or prosecute any alcohol or drug abuse patient.[facility] HospitalIn the event this information is protected by the Federal Confidentiality of Alcohol and Drug Abuse Patient Records regulations: The Federal rules restrict any use of the information to criminally investigate or prosecute any alcohol or drug abuse patient.[facility] HospitalIn the event this information is protected by the Federal Confidentiality of Alcohol and Drug Abuse Patient Records regulations: The Federal rules restrict any use of the information to criminally investigate or prosecute any alcohol or drug abuse patient.[facility] HospitalIn the event this information is protected by the Federal Confidentiality of Alcohol and Drug Abuse Patient Records regulations: The Federal rules restrict any use of the information to criminally investigate or prosecute any alcohol or drug abuse patient.[facility] HospitalIn the event this information is protected by the Federal Confidentiality of Alcohol and Drug Abuse Patient Records regulations: The Federal rules restrict any use of the information to criminally investigate or prosecute any alcohol or drug abuse patient.[facility] HospitalIn the event this information is protected by the Federal Confidentiality of Alcohol and Drug Abuse Patient Records regulations: The Federal rules restrict any use of the information to criminally investigate or prosecute any alcohol or drug abuse patient.[facility] HospitalIn the event this information is protected by the Federal Confidentiality of Alcohol and Drug Abuse Patient Records regulations: The Federal rules restrict any use of the information to criminally investigate or prosecute any alcohol or drug abuse patient.[facility] HospitalIn the event this information is protected by the Federal Confidentiality of Alcohol and Drug Abuse Patient Records regulations: The Federal rules restrict any use of the information to criminally investigate or prosecute any alcohol or drug abuse patient.[facility] HospitalIn the event this information is protected by the Federal Confidentiality of Alcohol and Drug Abuse Patient Records regulations: The Federal rules restrict any use of the information to criminally investigate or prosecute any alcohol or drug abuse patient.[facility] HospitalIn the event this information is protected by the Federal Confidentiality of Alcohol and Drug Abuse Patient Records regulations: The Federal rules restrict any use of the information to criminally investigate or prosecute any alcohol or drug abuse patient.[facility] HospitalIn the event this information is protected by the Federal Confidentiality of Alcohol and Drug Abuse Patient Records regulations: The Federal rules restrict any use of the information to criminally investigate or prosecute any alcohol or drug abuse patient.[facility] HospitalIn the event this information is protected by the Federal Confidentiality of Alcohol and Drug Abuse Patient Records regulations: The Federal rules restrict any use of the information to criminally investigate or prosecute any alcohol or drug abuse patient.[facility] HospitalIn the event this information is protected by the Federal Confidentiality of Alcohol and Drug Abuse Patient Records regulations: The Federal rules restrict any use of the information to criminally investigate or prosecute any alcohol or drug abuse patient.[facility] HospitalIn the event this information is protected by the Federal Confidentiality of Alcohol and Drug Abuse Patient Records regulations: The Federal rules restrict any use of the information to criminally investigate or prosecute any alcohol or drug abuse patient.[facility] HospitalIn the event this information is protected by the Federal Confidentiality of Alcohol and Drug Abuse Patient Records regulations: The Federal rules restrict any use of the information to criminally investigate or prosecute any alcohol or drug abuse patient.[facility] HospitalIn the event this information is protected by the Federal Confidentiality of Alcohol and Drug Abuse Patient Records regulations: The Federal rules restrict any use of the information to criminally investigate or prosecute any alcohol or drug abuse patient.[facility] HospitalIn the event this information is protected by the Federal Confidentiality of Alcohol and Drug Abuse Patient Records regulations: The Federal rules restrict any use of the information to criminally investigate or prosecute any alcohol or drug abuse patient.[facility] HospitalIn the event this information is protected by the Federal Confidentiality of Alcohol and Drug Abuse Patient Records regulations: The Federal rules restrict any use of the information to criminally investigate or prosecute any alcohol or drug abuse patient.[facility] HospitalIn the event this information is protected by the Federal Confidentiality of Alcohol and Drug Abuse Patient Records regulations: The Federal rules restrict any use of the information to criminally investigate or prosecute any alcohol or drug abuse patient.[facility] HospitalIn the event this information is protected by the Federal Confidentiality of Alcohol and Drug Abuse Patient Records regulations: The Federal rules restrict any use of the information to criminally investigate or prosecute any alcohol or drug abuse patient.[facility] HospitalIn the event this information is protected by the Federal Confidentiality of Alcohol and Drug Abuse Patient Records regulations: The Federal rules restrict any use of the information to criminally investigate or prosecute any alcohol or drug abuse patient.[facility] HospitalIn the event this information is protected by the Federal Confidentiality of Alcohol and Drug Abuse Patient Records regulations: The Federal rules restrict any use of the information to criminally investigate or prosecute any alcohol or drug abuse patient.[facility] HospitalIn the event this information is protected by the Federal Confidentiality of Alcohol and Drug Abuse Patient Records regulations: The Federal rules restrict any use of the information to criminally investigate or prosecute any alcohol or drug abuse patient.[facility] HospitalIn the event this information is protected by the Federal Confidentiality of Alcohol and Drug Abuse Patient Records regulations: The Federal rules restrict any use of the information to criminally investigate or prosecute any alcohol or drug abuse patient.[facility] HospitalIn the event this information is protected by the Federal Confidentiality of Alcohol and Drug Abuse Patient Records regulations: The Federal rules restrict any use of the information to criminally investigate or prosecute any alcohol or drug abuse patient.[facility] HospitalIn the event this information is protected by the Federal Confidentiality of Alcohol and Drug Abuse Patient Records regulations: The Federal rules restrict any use of the information to criminally investigate or prosecute any alcohol or drug abuse patient.[facility] HospitalIn the event this information is protected by the Federal Confidentiality of Alcohol and Drug Abuse Patient Records regulations: The Federal rules restrict any use of the information to criminally investigate or prosecute any alcohol or drug abuse patient.[facility] HospitalIn the event this information is protected by the Federal Confidentiality of Alcohol and Drug Abuse Patient Records regulations: The Federal rules restrict any use of the information to criminally investigate or prosecute any alcohol or drug abuse patient.[facility] HospitalIn the event this information is protected by the Federal Confidentiality of Alcohol and Drug Abuse Patient Records regulations: The Federal rules restrict any use of the information to criminally investigate or prosecute any alcohol or drug abuse patient.[facility] HospitalIn the event this information is protected by the Federal Confidentiality of Alcohol and Drug Abuse Patient Records regulations: The Federal rules restrict any use of the information to criminally investigate or prosecute any alcohol or drug abuse patient.[facility] HospitalIn the event this information is protected by the Federal Confidentiality of Alcohol and Drug Abuse Patient Records regulations: The Federal rules restrict any use of the information to criminally investigate or prosecute any alcohol or drug abuse patient.[facility] HospitalIn the event this information is protected by the Federal Confidentiality of Alcohol and Drug Abuse Patient Records regulations: The Federal rules restrict any use of the information to criminally investigate or prosecute any alcohol or drug abuse patient.[facility] HospitalIn the event this information is protected by the Federal Confidentiality of Alcohol and Drug Abuse Patient Records regulations: The Federal rules restrict any use of the information to criminally investigate or prosecute any alcohol or drug abuse patient.[facility] HospitalIn the event this information is protected by the Federal Confidentiality of Alcohol and Drug Abuse Patient Records regulations: The Federal rules restrict any use of the information to criminally investigate or prosecute any alcohol or drug abuse patient.[facility] HospitalIn the event this information is protected by the Federal Confidentiality of Alcohol and Drug Abuse Patient Records regulations: The Federal rules restrict any use of the information to criminally investigate or prosecute any alcohol or drug abuse patient.[facility] HospitalIn the event this information is protected by the Federal Confidentiality of Alcohol and Drug Abuse Patient Records regulations: The Federal rules restrict any use of the information to criminally investigate or prosecute any alcohol or drug abuse patient.[facility] HospitalIn the event this information is protected by the Federal Confidentiality of Alcohol and Drug Abuse Patient Records regulations: The Federal rules restrict any use of the information to criminally investigate or prosecute any alcohol or drug abuse patient.[facility] HospitalIn the event this information is protected by the Federal Confidentiality of Alcohol and Drug Abuse Patient Records regulations: The Federal rules restrict any use of the information to criminally investigate or prosecute any alcohol or drug abuse patient.[facility] HospitalIn the event this information is protected by the Federal Confidentiality of Alcohol and Drug Abuse Patient Records regulations: The Federal rules restrict any use of the information to criminally investigate or prosecute any alcohol or drug abuse patient.[facility] HospitalIn the event this information is protected by the Federal Confidentiality of Alcohol and Drug Abuse Patient Records regulations: The Federal rules restrict any use of the information to criminally investigate or prosecute any alcohol or drug abuse patient.[facility] HospitalIn the event this information is protected by the Federal Confidentiality of Alcohol and Drug Abuse Patient Records regulations: The Federal rules restrict any use of the information to criminally investigate or prosecute any alcohol or drug abuse patient.[facility] HospitalIn the event this information is protected by the Federal Confidentiality of Alcohol and Drug Abuse Patient Records regulations: The Federal rules restrict any use of the information to criminally investigate or prosecute any alcohol or drug abuse patient.[facility] HospitalIn the event this information is protected by the Federal Confidentiality of Alcohol and Drug Abuse Patient Records regulations: The Federal rules restrict any use of the information to criminally investigate or prosecute any alcohol or drug abuse patient.[facility] HospitalIn the event this information is protected by the Federal Confidentiality of Alcohol and Drug Abuse Patient Records regulations: The Federal rules restrict any use of the information to criminally investigate or prosecute any alcohol or drug abuse patient.[facility] HospitalIn the event this information is protected by the Federal Confidentiality of Alcohol and Drug Abuse Patient Records regulations: The Federal rules restrict any use of the information to criminally investigate or prosecute any alcohol or drug abuse patient.[facility] HospitalIn the event this information is protected by the Federal Confidentiality of Alcohol and Drug Abuse Patient Records regulations: The Federal rules restrict any use of the information to criminally investigate or prosecute any alcohol or drug abuse patient.[facility] HospitalIn the event this information is protected by the Federal Confidentiality of Alcohol and Drug Abuse Patient Records regulations: The Federal rules restrict any use of the information to criminally investigate or prosecute any alcohol or drug abuse patient.[facility] HospitalIn the event this information is protected by the Federal Confidentiality of Alcohol and Drug Abuse Patient Records regulations: The Federal rules restrict any use of the information to criminally investigate or prosecute any alcohol or drug abuse patient.[facility] HospitalIn the event this information is protected by the Federal Confidentiality of Alcohol and Drug Abuse Patient Records regulations: The Federal rules restrict any use of the information to criminally investigate or prosecute any alcohol or drug abuse patient.[facility] HospitalIn the event this information is protected by the Federal Confidentiality of Alcohol and Drug Abuse Patient Records regulations: The Federal rules restrict any use of the information to criminally investigate or prosecute any alcohol or drug abuse patient.[facility] HospitalIn the event this information is protected by the Federal Confidentiality of Alcohol and Drug Abuse Patient Records regulations: The Federal rules restrict any use of the information to criminally investigate or prosecute any alcohol or drug abuse patient.[facility] HospitalIn the event this information is protected by the Federal Confidentiality of Alcohol and Drug Abuse Patient Records regulations: The Federal rules restrict any use of the information to criminally investigate or prosecute any alcohol or drug abuse patient.[facility] HospitalIn the event this information is protected by the Federal Confidentiality of Alcohol and Drug Abuse Patient Records regulations: The Federal rules restrict any use of the information to criminally investigate or prosecute any alcohol or drug abuse patient.[facility] HospitalIn the event this information is protected by the Federal Confidentiality of Alcohol and Drug Abuse Patient Records regulations: The Federal rules restrict any use of the information to criminally investigate or prosecute any alcohol or drug abuse patient.[facility] HospitalIn the event this information is protected by the Federal Confidentiality of Alcohol and Drug Abuse Patient Records regulations: The Federal rules restrict any use of the information to criminally investigate or prosecute any alcohol or drug abuse patient.[facility] HospitalIn the event this information is protected by the Federal Confidentiality of Alcohol and Drug Abuse Patient Records regulations: The Federal rules restrict any use of the information to criminally investigate or prosecute any alcohol or drug abuse patient.[facility] HospitalIn the event this information is protected by the Federal Confidentiality of Alcohol and Drug Abuse Patient Records regulations: The Federal rules restrict any use of the information to criminally investigate or prosecute any alcohol or drug abuse patient.[facility] HospitalIn the event this information is protected by the Federal Confidentiality of Alcohol and Drug Abuse Patient Records regulations: The Federal rules restrict any use of the information to criminally investigate or prosecute any alcohol or drug abuse patient.[facility] HospitalIn the event this information is protected by the Federal Confidentiality of Alcohol and Drug Abuse Patient Records regulations: The Federal rules restrict any use of the information to criminally investigate or prosecute any alcohol or drug abuse patient.[facility] HospitalIn the event this information is protected by the Federal Confidentiality of Alcohol and Drug Abuse Patient Records regulations: The Federal rules restrict any use of the information to criminally investigate or prosecute any alcohol or drug abuse patient.[facility] HospitalIn the event this information is protected by the Federal Confidentiality of Alcohol and Drug Abuse Patient Records regulations: The Federal rules restrict any use of the information to criminally investigate or prosecute any alcohol or drug abuse patient.[facility] HospitalIn the event this information is protected by the Federal Confidentiality of Alcohol and Drug Abuse Patient Records regulations: The Federal rules restrict any use of the information to criminally investigate or prosecute any alcohol or drug abuse patient.[facility] HospitalIn the event this information is protected by the Federal Confidentiality of Alcohol and Drug Abuse Patient Records regulations: The Federal rules restrict any use of the information to criminally investigate or prosecute any alcohol or drug abuse patient.[facility] HospitalIn the event this information is protected by the Federal Confidentiality of Alcohol and Drug Abuse Patient Records regulations: The Federal rules restrict any use of the information to criminally investigate or prosecute any alcohol or drug abuse patient.[facility] HospitalIn the event this information is protected by the Federal Confidentiality of Alcohol and Drug Abuse Patient Records regulations: The Federal rules restrict any use of the information to criminally investigate or prosecute any alcohol or drug abuse patient.[facility] HospitalIn the event this information is protected by the Federal Confidentiality of Alcohol and Drug Abuse Patient Records regulations: The Federal rules restrict any use of the information to criminally investigate or prosecute any alcohol or drug abuse patient.[facility] HospitalIn the event this information is protected by the Federal Confidentiality of Alcohol and Drug Abuse Patient Records regulations: The Federal rules restrict any use of the information to criminally investigate or prosecute any alcohol or drug abuse patient.[facility] the event this information is protected by the Federal Confidentiality of Alcohol and Drug Abuse Patient Records regulations: The Federal rules restrict any use of the information to criminally investigate or prosecute any alcohol or drug abuse patient.[facility] Reason for Visit (unrecogniz ed section and content) Reason Comments 6 Month Exam Specialty Diagnoses / Procedures Referred By Meron swenson Referred To Contact Family Medicine / FAMILY MEDICINE Diagnoses 6 month follow up Procedures 4C EST WELL Edmundo Cruz MD [address] [place] [address] Phone: tel: fax: Edmundo Cruz MD [address] [place] [address] Phone: tel: fax: Referral ID Status Reason Start Date Expiration Date Visits Re quested Visits Authorized [id number] Closed 09/06/2024 04/12/2025 1 1 Reason Onset Date Comments Refill Request 07/04/2021 Reason Comments Follow Up 6 month follow up wi th device check Specialty Diagnoses / Procedures Referred By Meron swenson Referred To Contact Cardiology / CARDIOLOGY Diagnoses Follow-up exam 6 month fup with device check R/S from 05/06 DR DE LA ROSA out Procedures OFFICE/OUTPATIENT ESTABLISHED HIGH MDM 40-54 MIN EST PATIENT Da De La Rosa MD [address] [facility] [address] [place] [address] Da De La Rosa MD [address] [facility] [address] [place] [id number] Referral ID Status Reason Start Date Expiration Date Visits Re quested Visits Authorized [id number] Closed 10/11/2021 04/12/2022 1 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 Reason [...] year Specialty Diagnoses / Procedures Referred By Contac t Referred To Contact Cardiology / CARDIOLOGY Diagnoses Heart failure, unspecified 1 year return office visit Procedures OFFICE/OUTPATIENT NEW HIGH MDM 60-74 MINUTES EST PATIENT Self Da De La Rosa MD [address] [place] [address] Referral ID Status Reason Start Date Expiration Date Visits Requested Visits Authorized [id number] Authorized OON/Self Pay Override 04/13/2022 04/12/2023 99 99 Reason Comments Follow Up Reason Comments Patient Question Reason Comments Results Labs Reason Comments Established Patient 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 / Procedures Referred By Contac t Referred To Contact Cardiology / CARDIOLOGY Diagnoses Encounter for follow-up examination after completed treatment for conditions other than malignant neoplasm reschedule Procedures OFFICE/OUTPATIENT ESTABLISHED SF MDM 10 MIN OFFICE/OUTPATIENT ESTABLISHED LOW MDM 20 MIN OFFICE/OUTPATIENT ESTABLISHED MOD MDM 30 MIN OFFICE/OUTPATIENT ESTABLISHED HIGH MDM 40 MIN EST PATIENT Edmundo Cruz MD [address] [place] [address] Da De La Rosa MD [address] [place] [address] Referral ID Status Reason Start Date Expiration Date V isits Requested Visits Authorized [id number] Authorized 11/16/2023 04/12/2024 1 99 Reason Comments Refill Request Specialty Diagnoses / Procedures Referred By Contac t Referred To Contact Radiology / RADIO GENERAL [facility] WS Diagnoses ML Procedures XR CHEST Sophia Castillo, CHIEF YEOMAN.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 [address] [place] [address] Radio General [facility] [address] [place] [address] Referral ID Status Reason Start Date Expiration Date Visits Re quested Visits Authorized [id number] Closed 04/11/2022 04/12/2022 1 1 Reason Comments Future Appointment Reason Comments UTI Frequency, odor, raulito udy x 1 week Reason Comments 10 months post visit Left shoulder pain with injection given Specialty Diagnoses / Procedures Referred By Contac t Referred To Contact Family Medicine / FAMILY MEDICINE Diagnoses Left shoulder pain left shoulder pain, discuss next steps Procedures OFFICE/OUTPATIENT ESTABLISHED HIGH MDM 40 MIN EST Edmundo Krishnan MD [address] [place] [address] Ej Rodriguez V, DO [address] [place] [address] Referral ID Status Reason Start Date Expiration Date V isits Requested Visits Authorized [id number] Authorized 01/15/2024 04/12/2024 99 99 Reason Comments Results Reason Comments Medication Problem Reason Comments Results Reason Onset Date Comments Refill Request 02/17/2024 Reason Comments Appointment Discuss battery walsh ge Reason Comments Stress Test Instructions for 03/14/24 Reason Comments Radiology NM Specialty Diagnoses / Procedures Referred By Meron t Referred To Contact MOLECULAR & FUNCTIONAL IMAGING Diagnoses Routine check-up Coronary artery disease involving chickahominy indians-eastern division coronary artery of chickahominy indians[place]eastern division heart without angina pectoris Essential hypertension Pacemaker Paroxysmal atrial fibrillation (HCC) Nonsustained ventricular tachycardia (HCC) Procedures NM CARDIAC PERF STRESS/PHARM MYOCARDIAL SPECT MULTIPLE STUDIES Da De La Rosa MD [address] [facility] [address] [place] [address] Molecular & Functional Imaging [address] [place] [address] Referral ID Status Reason Start Date Expiration Date V isits Requested Visits Authorized [id number] Closed Auto-Generate d Referral 03/04/2024 06/02/2024 1 1 Reason Comments Calcium Problem Specialty Diagnoses / Procedures Referred By Contac t Referred To Contact Endocrinology Diagnoses Hypercalcemia Procedures CONSULT TO ENDOCRINOLOGY OFFICE/OUTPATIENT [facility] MDM 60 MINUTES Deion Russell, CHIEF YEOMAN.CHILDB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 [address] [place] [address] [address] [address] Referral ID Status Reason Start Date Expiration Date V isits Requested Visits Authorized [id number] Closed PCP Requested Referral 04/13/2023 04/12/2024 1 1 Reason Comments Results Urgent Values Reason Comments New Patient Referral for Device ManagementBoston Scientific BiV PPM placed 09/05/2014 for CHF Specialty Diagnoses / Procedures Referred By Contac t Referred To Contact Cardiology / CARDIOLOGY Diagnoses Examination New Patient Procedures OFFICE/OUTPATIENT ESTABLISHED SF MDM 10 MIN OFFICE/OUTPATIENT ESTABLISHED LOW MDM 20 MIN OFFICE/OUTPATIENT ESTABLISHED MOD MDM 30 MIN OFFICE/OUTPATIENT ESTABLISHED HIGH MDM 40 [place] [address] [place] [address] [facility] [address] [address] Referral ID Status Reason Start Date Expiration Date V isits Requested Visits Authorized [id number] Authorized 04/25/2024 04/12/2025 99 99 Reason Onset Date Comments Refill Request 05/20/2024 Reason Comments New Medication Reason Onset Date Comments Refill Request 06/21/2024 Reason Comments Hypercalcemia Reason Comments Appointment Reschedule/Device Reason Onset Date Comments Refill Request 07/20/2024 Reason Onset Date Comments Refill Request 07/27/2024 Reason Comments Critical Results Reason Onset Date Comments Refill Request 09/07/2024 Reason Comments Forms [facility] - Authorization to hold anti-thrombotic Reason Comments Permanent Pacemaker Specialty Diagnoses / Procedures Referred By Contac t Referred To Contact Cardiology / CARDIOLOGY Diagnoses 6 Mth F/u Rech /2 Procedures DEVICE CHECK Kimi [facility]ala [facility] [address] [address] Phone: tel: fax: [facility] Comfort [address] [address] Phone: tel: fax: Referral ID Status Reason Start Date Expiration Date Visits Re quested Visits Authorized [id number] Closed 08/10/2024 04/12/2025 1 1 Reason Comments Follow Up 6 month follow up Specialty Diagnoses / Procedures Referred By Contac t Referred To Contact [facility] Diagnoses Complete heart block (HCC) Cardiac resynchronization therapy pacemaker (IMCU NURSE-P) in place Procedures ECHO ECHO TTHRC R-T 2D W/WOM-MODE COMPL SPEC&COLR D Jerri Draper MD [address] [place] [address] Phone: tel: fax: [facility] [place] [address] [facility] [place] [address] Referral ID Status Reason Start Date Expiration Date V isits Requested Visits Authorized [id number] Closed Auto-Generate d Referral 07/04/2024 10/02/2024 1 1 Reason Comments Hypercalcemia labs Reason Comments Hyperparathyroidism Specialty Diagnoses / Procedures Referred By Contact Referred To Contact Endocrinology / ENDOCRINOLOGY Diagnoses Follow-up exam Hyperlipidemia, unspecified Atherosclerotic heart disease of chickahominy indians-eastern division coronary artery without angina pectoris Return in about one month Hyperlipidemia, unspecified hyperlipidemia type [E78.5]; Coronary artery disease involving chickahominy indians-eastern division coronary artery of chickahominy indians-eastern division heart without angina pectoris [I25.10] Hyperthyr Procedures OFFICE/OUTPATIENT ESTABLISHED HIGH MDM 40 MIN EST JANEEN PATIENT Narcisa Lomeli MD [address] [place] [address] Phone: tel:[phone] fax:[phone] Narcisa Lomeli MD [address] [place] [address] Phone: tel:[phone] fax:[phone] Referral ID Status Reason Start Date Expiration Date V isits Requested Visits Authorized [id number] Authorized 09/29/2024 04/12/2025 99 99 Reason Onset Date Comments Refill Request 12/08/2024 Care Teams (unrecognized sec tion and content) Mat Puncher Relationship Specialty Start Date End Date Edmundo Cruz MD [address] [place] [address] PCP - General Family Practice 02/06/15 Liang Hanna MD Neurology 10/08/17 Da De La Rosa MD [address], [place] [id number] Cardiology 10/08/17 Kimi Morris MD Neurology 10/08/17 Mat Puncher Relationship Specialty Start Date End Date Edmundo Cruz MD [address] [place] [address] PCP - General Family Practice 02/06/15 Liang Hanna MD Neurology 10/08/17 Da De La Rosa MD [address] [address] Cardiology 10/08/17 Kimi Morris MD Neurology 10/08/17 Mat Puncher Relationship Specialty Start Date End Date Edmundo Cruz MD [address] [place] [address] PCP - General Family Practice 02/06/15 Liang Hanna MD Neurology 10/08/17 Da De La Rosa MD [address] [address] Cardiology 10/08/17 Kimi Morris MD Neurology 10/08/17 Mat Puncher Relationship Specialty Start Date End Date Edmundo Cruz MD [address] [place] [address] PCP - General Family Practice 02/06/15 Liang Hanna MD Neurology 10/08/17 Da De La Rosa MD [address] [address] Cardiology 10/08/17 Kimi Morris MD Neurology 10/08/17 Mat Puncher Relationship Specialty Start Date End Date Edmundo Cruz MD [address] [place] [address] PCP - [facility] 02/06/15 Liang Hanna MD Neurology 10/08/17 Da De La Rosa MD [address] [address] Cardiology 10/08/17 Kimi Morris MD Neurology 10/08/17 Mat Puncher Relationship Specialty Start Date End Date Edmundo Cruz MD [address] [place] [address] PCP - [facility] 02/06/15 Liang Hanna MD Neurology 10/08/17 Da De La Rosa MD [address] [address] Cardiology 10/08/17 Kimi Morris DO Neurology 10/08/17 Mat Puncher Relationship Specialty Start Date End Date Edmundo Cruz MD [address] [place] [address] PCP - General Family Practice 02/06/15 Liang Hanna MD Neurology 10/08/17 Da De La Rosa MD [address] [place] [address] Cardiology 10/08/17 Kimi Morris, DO Neurology 10/08/17 Mat Puncher Relationship Specialty Start Date End Date Edmundo Cruz MD [address] [place] [address] PCP - General Family Medicine 02/06/15 Liang Hanna MD Neurology 10/08/17 Da De La Rosa MD [address] [place] [address] Cardiology 10/08/17 Kimi Morris, DO Neurology 10/08/17 Mat Puncher Relationship Specialty Start Date End Date Edmundo Cruz MD [address] [place] [address] PCP - General Family Medicine 02/06/15 Liang Hanna MD Neurology 10/08/17 Da De La Rosa MD [address] [place] [address] Cardiology 10/08/17 Kimi Morris, DO Neurology 10/08/17 Mat Puncher Relationship Specialty Start Date End Date Edmundo Cruz MD [address] [place] [address] PCP - General Family Medicine 02/06/15 Liang Hanna MD Neurology 10/08/17 Da De La Rosa MD [address] [address] Cardiology 10/08/17 Kimi Morris, DO Neurology 10/08/17 Mat Puncher Relationship Specialty Start Date End Date Edmundo Cruz MD [address] [place] [address] PCP - General Family Medicine 02/06/15 Liang Hanna MD Neurology 10/08/17 Da De La Rosa MD [address] [place] [address] Cardiology 10/08/17 Kmii Morris, DO Neurology 10/08/17 Mat Puncher Relationship Specialty Start Date End Date Edmundo Cruz MD [address] [place] [address] PCP - General Family Medicine 02/06/15 Liang Hanna MD [address] [place] [address] Neurology 10/08/17 Da De La Rosa MD [address] [facility] [address] [place] [address] Cardiology 10/08/17 Kimi Morris, DO [address] [facility] [address] [place] [address] Neurology 10/08/17 Mat Puncher Relationship Specialty Start Date End Date Edmundo Cruz MD [address] [facility] [place] [address] PCP - General Family Medicine 02/06/15 Liang Hanna MD [address] [facility] [place] [address] Neurology 10/08/17 Da De La Rosa MD [address] [facility] [address] [place] [address] Cardiology 10/08/17 Kimi Morris, DO [address] [facility] [address] [place] [address] Neurology 10/08/17 Mat Puncher Relationship Specialty Start Date End Date Edmundo Cruz MD [address] [facility] [place] [address] PCP - General Family Medicine 02/06/15 Liang Hanna MD [address] [place] [address] Neurology 10/08/17 Da De La Rosa MD [address] [facility] [address] [place] [address] Cardiology 10/08/17 Kimi Morris, DO [address] [facility] [address] [place] [address] Neurology 10/08/17 Mat Puncher Relationship Specialty Start Date End Date Edmundo Cruz MD [address] [place] [address] PCP - General Family Medicine 02/06/15 Liang Hanna MD [address] [facility] [place] [address] Neurology 10/08/17 Da De La Rosa MD [address] [place] [address] Cardiology 10/08/17 Kimi Morris, DO [address] [place] [address] Neurology 10/08/17 Mat Puncher Relationship Specialty Start Date End Date Edmundo Cruz MD [address] [place] [address] PCP - General Family Medicine 02/06/15 Liang Hanna MD [address] [place] [address] Neurology 10/08/17 Da De La Rosa MD [address] [place] [address] Cardiology 10/08/17 Kimi Morris, DO [address] [address] Neurology 10/08/17 Mat Puncher Relationship Specialty Start Date End Date Edmundo Cruz MD [address] [place] [address] PCP - General Family Medicine 02/06/15 Liang Hanna MD [address] [place] [address] Neurology 10/08/17 Da De La Rosa MD [address] [place] [address] Cardiology 10/08/17 Kimi Morris, [address] [place] [address] Neurology 10/08/17 Mat Puncher Relationship Specialty Start Date End Date Edmundo Cruz MD [address] [place] [address] PCP - General Family Medicine 02/06/15 Liang Hanna MD [address] [place] [address] Neurology 10/08/17 Da De La Rosa MD [address] [address] Cardiology 10/08/17 Kimi Morris, [address] [address] Neurology 10/08/17 Mat Puncher Relationship Specialty Start Date End Date Edmundo Cruz MD [address] [place] [address] PCP - General Family Medicine 02/06/15 Liang Hanna MD [address] [place] [address] Neurology 10/08/17 Da De La Rosa MD [address] [place] [address] Cardiology 10/08/17 Kimi Morris, [address] [address] Neurology 10/08/17 Mat Puncher Relationship Specialty Start Date End Date Edmundo Cruz MD [address] [place] [address] PCP - General Family Medicine 02/06/15 Liang Hanna MD [address] [place] [address] Neurology 10/08/17 Da De La Rosa MD [address] [facility] [address] [place] [address] Cardiology 10/08/17 Kimi Morris, 1330 [facility] [address] [place] [address] Neurology 10/08/17 Mat Puncher Relationship Specialty Start Date End Date Edmundo Cruz MD [address] [place] [address] PCP - General Family Medicine 02/06/15 Liang Hanna MD [address] [place], [place] [address] Neurology 10/08/17 Da De La Rosa MD [address] [facility] [address] [place] [address] Cardiology 10/08/17 Kimi Morris, 1330 [facility] [address] [place] [address] Neurology 10/08/17 Team Status: Active Member Role Status Dates Dr. Edmundo Cruz MD Family Provider Active Dr. Edmundo Cruz MD Primary Care Provider Active Team Status: Inactive Member Role Status Dates Dr. Edmundo Cruz MD Primary Care Provider, Referr ing Provider Active Dr. García Clemente MD Attending Provider Active Team Status: Inactive Member Role Status Dates Dr. Edmundo Cruz MD Primary Care Provider Active Dr. García Clemente MD Attending Provider, Referring Provider Active Mat Puncher Relationship Specialty Start Date End Date Edmundo Cruz MD [address] [place] [address] PCP - General Family Medicine 02/06/15 Liang Hanna MD [address] [place] [address] Neurology 10/08/17 Da De La Rosa MD [address] [address] Cardiology 10/08/17 Kimi Morris DO [address] [address] Neurology 10/08/17 Mat Puncher Relationship Specialty Start Date End Date Edmundo Cruz MD [address] [place] [address] PCP - General Family Medicine 02/06/15 Liang Hanna MD [address] [place] [address] Neurology 10/08/17 Da De La Rosa MD [address] [address] Cardiology 10/08/17 Kimi Morris DO [address] [address] Neurology 10/08/17 Mat Puncher Relationship Specialty Start Date End Date Edmundo Cruz MD [address] [place] [address] PCP - General Family Medicine 02/06/15 Liang Hanna MD [address] [place] [address] Neurology 10/08/17 Da De La Rosa MD [address] [id number] Cardiology 10/08/17 Kimi Morris DO Comfort [address] [address] Neurology 10/08/17 Team Status: Inactive Member Role Status Dates Dr. Edmundo Cruz MD Primary Care Provider Active Dr. Brandon Franco DPM Attending Provider, Referring Provider Active Team Status: Active Member Role Status Dates Dr. Edumndo Cruz MD Primary Care Provider Active Dr. Tarik Blair MD Attending Provider Active Mat Puncher Relationship Specialty Start Date End Date Edmundo Cruz MD [address] [place] [address] PCP - General Family Medicine 02/06/15 Liang Hanna MD [address] [place], [place] [address] Neurology 10/08/17 Da De La Rosa MD [address] [address] Cardiology 10/08/17 Kimi Morris DO [address] [address] Neurology 10/08/17 Mat Puncher Relationship Specialty Start Date End Date Edmundo Cruz MD [address] [place] [address] PCP - General Family Medicine 02/06/15 Liang Hanna MD [address] [place] [address] Neurology 10/08/17 Da De La Rosa MD [address] [address] Cardiology 10/08/17 Kimi Morris DO [address] [address] Neurology 10/08/17 Mat Puncher Relationship Specialty Start Date End Date Edmundo Cruz MD [address] [place] [address] PCP - General Family Medicine 02/06/15 Liang Hanna MD [address] [place] [address] Neurology 10/08/17 Da De La Rosa MD [address] [address] Cardiology 10/08/17 Kimi Morris DO 0 [address] [address] Neurology 10/08/17 Mat Puncher Relationship Specialty Start Date End Date Edmundo Cruz MD [address] [place] [address] PCP - General Family Medicine 02/06/15 Liang Hanna MD [address] [place] [address] Neurology 10/08/17 Da De La Rosa MD [address] [address] Cardiology 10/08/17 Kimi Morris DO Eugenio0 [address] 4[address] Neurology 10/08/17 Mat Puncher Relationship Specialty Start Date End Date Edmundo Cruz MD [address] [place] [address] PCP - General Family Medicine 02/06/15 Liang Hanna MD [address] [place] [address] Neurology 10/08/17 Da De La Rosa MD [address] [address] Cardiology 10/08/17 Kimi Morris DO Comfort [address] [address] Neurology 10/08/17 Mat Puncher Relationship Specialty Start Date End Date Edmundo Cruz MD [address] [place] [address] PCP - General Family Medicine 02/06/15 Liang Hanna MD [address] [place] [address] Neurology 10/08/17 Da De La Rosa MD [address] 9[address] Bioprocessing Manufacturing Technician Cardiology 10/08/17 Kimi Morris DO [address] 4647608 Neurology 10/08/17 Kimi Ayala MD [address] [address] Cardiology 12/09/23 Mat Puncher Relationship Specialty Start Date End Date Edmundo Cruz MD [address] [place], [place] 0869[address] PCP - General Family Medicine 02/06/15 Liang Hanna MD [address] [place], [place] 845[address] Neurology 10/08/17 Da De La Rosa MD [address] [address] Bioprocessing Manufacturing Technician Cardiology 10/08/17 Kimi Morris DO [address] [address] Neurology 10/08/17 Kimi Ayala MD [address] [address] Cardiology 12/09/23 Mat Puncher Relationship Specialty Start Date End Date Edmundo Cruz MD [address] [place], [place] [address] PCP - General Family Medicine 02/06/15 Liang Hanna MD [address] [place], [place] 0546[address] Neurology 10/08/17 Da De La Rosa MD [address] 4[address]408 Bioprocessing Manufacturing Technician Cardiology 10/08/17 Kimi Morris DO [address] [id number] Neurology 10/08/17 Kimi Ayala MD [address] [phone] Cardiology 12/09/23 Mat Puncher Relationship Specialty Start Date End Date Edmundo Cruz MD [address] [place] [address] PCP - General Family Medicine 02/06/15 Liang Hanna MD [address] [place] [address] Neurology 10/08/17 Da De La Rosa MD [address] 4300608 Bioprocessing Manufacturing Technician Cardiology 10/08/17 Kimi Morris DO [address] 0[address]208 Neurology 10/08/17 Mat Puncher Relationship Specialty Start Date End Date Edmundo Cruz MD [address] [place] [address] PCP - General Family Medicine 02/06/15 Liang Hanna MD [address] [place] [address] Neurology 10/08/17 Da De La Rosa MD [address] [address] Bioprocessing Manufacturing Technician Cardiology 10/08/17 Kimi Morris DO [address] [address] Neurology 10/08/17 Kimi Ayala MD [address] [address] Cardiology 12/09/23 Mat Puncher Relationship Specialty Start Date End Date Edmundo Cruz MD [address] [place] [address] PCP - General Family Medicine 02/06/15 Liang Hanna MD [address] [place] [address] Neurology 10/08/17 Da De La Rosa MD [address] [facility] [address] [place] [address] Bioprocessing Manufacturing Technician Cardiology 10/08/17 Kimi Morris DO [address] [id number] Neurology 10/08/17 Kimi Ayala MD [address] [address] Cardiology 12/09/23 Mat Puncher Relationship Specialty Start Date End Date Edmundo Cruz MD [address] [place], [place] 880[address] PCP - General Family Medicine 02/06/15 Liang Hanna MD [address] [place] [address] Neurology 10/08/17 Da De La Rosa MD [address] 0528[address] Bioprocessing Manufacturing Technician Cardiology 10/08/17 Kimi Morris DO [address] [id number] Neurology 10/08/17 Kimi Ayala MD [address] [address] Cardiology 12/09/23 Mat Puncher Relationship Specialty Start Date End Date Edmundo Cruz MD [address] [place], [place] 8879[address] PCP - General Family Medicine 02/06/15 Liang Hanna MD [address] [place] [address] Neurology 10/08/17 Da De La Rosa MD [address] 8367[address] Bioprocessing Manufacturing Technician Cardiology 10/08/17 Kimi Morris DO [address] [id number] Neurology 10/08/17 Kimi Ayala MD [address] [address] Cardiology 12/09/23 Mat Puncher Relationship Specialty Start Date End Date Edmundo Cruz MD [address] [place], [place] 447311 PCP - General Family Medicine 02/06/15 Liang Hanna MD [address] [place] [address] Neurology 10/08/17 Da De La Rosa MD [address] [address] Bioprocessing Manufacturing Technician Cardiology 10/08/17 Kimi Morris DO [address] [address] Neurology 10/08/17 Kimi Ayala MD [address] [phone] Cardiology 12/09/23 Mat Puncher Relationship Specialty Start Date End Date Edmundo Cruz MD [address] [place] [address] PCP - General Family Medicine 02/06/15 Liang Hanna MD [address] [place] [address] Neurology 10/08/17 Da De La Rosa MD [address] [address] Bioprocessing Manufacturing Technician Cardiology 10/08/17 Kimi Morris DO [address] [address] Neurology 10/08/17 Kimi Ayala MD [address] [address] Cardiology 12/09/23 Mat Puncher Relationship Specialty Start Date End Date Edmundo Cruz MD [address] [place] [address] PCP - General Family Medicine 02/06/15 Liang Hanna MD [address] [place] [address] Neurology 10/08/17 Da De La Rosa MD [address] [facility] [address] [place] [address] Bioprocessing Manufacturing Technician Cardiology 10/08/17 Kimi Morris DO [address] [id number] Neurology 10/08/17 Kimi Ayala MD [address] [address] Cardiology 12/09/23 Mat Puncher Relationship Specialty Start Date End Date Edmundo Cruz MD [address] [place], [place] 935251 PCP - General Family Medicine 02/06/15 Liang Hanna MD [address] [place] [address] Neurology 10/08/17 Da De La Rosa MD [address] [id number] Bioprocessing Manufacturing Technician Cardiology 10/08/17 Kimi Morris DO [address] [id number] Neurology 10/08/17 Kimi Ayala MD [address] [address] Cardiology 12/09/23 Mat Puncher Relationship Specialty Start Date End Date Edmundo Cruz MD [address] [place], [place] 127261 PCP - General Family Medicine 02/06/15 Liang Hanna MD [address] [place] [address] Neurology 10/08/17 Da De La Rosa MD [address] 1426308 Bioprocessing Manufacturing Technician Cardiology 10/08/17 Kimi Morris DO [address] [id number] Neurology 10/08/17 Kimi Ayala MD [address] [address] Cardiology 12/09/23 Mat Puncher Relationship Specialty Start Date End Date Edmundo Cruz MD [address] [place], [place] 961091 PCP - General Family Medicine 02/06/15 Liang Hanna MD [address] [place] [address] Neurology 10/08/17 Da De La Rosa MD [address] [address] Bioprocessing Manufacturing Technician Cardiology 10/08/17 Kimi Morris DO [address] [address] Neurology 10/08/17 Kimi Ayala MD [address] [address] Cardiology 12/09/23 Mat Puncher Relationship Specialty Start Date End Date Edmundo Cruz MD [address] [place] [address] PCP - General Family Medicine 02/06/15 Liang Hanna MD [address] [place] [address] Neurology 10/08/17 Da De La Rosa MD [address] [address] Bioprocessing Manufacturing Technician Cardiology 10/08/17 Kimi Morris DO [address] [address] Neurology 10/08/17 Kimi Ayala MD [address] [address] Cardiology 12/09/23 Mat Puncher Relationship Specialty Start Date End Date Edmundo Cruz MD [address] [place] [address] PCP - General Family Medicine 02/06/15 Liang Hanna MD [address] [place] [address] Neurology 10/08/17 Da De La Rosa MD [address] [facility] [address] [place] [address] Bioprocessing Manufacturing Technician Cardiology 10/08/17 Kimi Morris DO [address] [address] Neurology 10/08/17 Kimi Ayala MD [address] [address] Cardiology 12/09/23 Sophia Castillo APRN.CHILDB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 [address] [place] [address] Airline Managerial Supervisor Family Medicine 03/20/24 Mat Puncher Relationship Specialty Start Date End Date Edmundo Cruz MD [address] [place], [place] [id number] PCP - General Family Medicine 02/06/15 Liang Hanna MD [address] [place], [place] 498771 Neurology 10/08/17 Da De La Rosa MD 0 JE[address] [address] Bioprocessing Manufacturing Technician Cardiology 10/08/17 Kimi Morris DO 0 [address] [address] Neurology 10/08/17 Kimi Ayala MD [address] [address] Cardiology 12/09/23 Sophia Castillo APRN.CHILDB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 [address] [place] [address] Airline Managerial Supervisor [facility] 03/20/24 Deion Russell APRN.CHILDB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 [address] [place] [address] [place] 03/29/24 Mat Puncher Relationship Specialty Start Date End Date Edmundo Cruz MD [address] [place] [address] PCP - General Family Medicine 02/06/15 Liang Hanna MD [address] [place] [address] Neurology 10/08/17 Da De La Rosa MD [address] [address] Bioprocessing Manufacturing Technician Cardiology 10/08/17 Kimi Morris DO [address] [address] Neurology 10/08/17 Kimi Ayala MD [address] [address] Cardiology 12/09/23 Sophia Castillo APRN.CHILDB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 [address] [place] [address] [facility] 03/20/24 Deion Russell APRN.CHILDB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 [address] [place] [address] [facility] 03/29/24 Mat Puncher Relationship Specialty Start Date End Date Edmundo Cruz MD [address] [place] [address] PCP - General Family Medicine 02/06/15 Liang Hanna MD [address] [place] [address] Neurology 10/08/17 Da De La Rosa MD [address] [address] Bioprocessing Manufacturing Technician Cardiology 10/08/17 Kimi Morris DO [address] [address] Neurology 10/08/17 Kimi Ayala MD [address] [phone] Cardiology 12/09/23 Sophia Castillo APRN.CHILDB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 [address] [place] [address] Airline Managerial Supervisor Family Medicine 03/20/24 Deion Russell APRN.CHILDB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 [address] [place] [address] Airline Managerial Supervisor Family Medicine 03/29/24 Mat Puncher Relationship Specialty Start Date End Date Edmundo Cruz MD [address] [place] [address] PCP - General Family Medicine 02/06/15 Liang Hanna MD [address] [place] [address] Neurology 10/08/17 Da De La Rosa MD [address] [address] Bioprocessing Manufacturing Technician Cardiology 10/08/17 Kimi Morris DO [facility] JE[address]IE [address]LE [address] [address] Neurology 10/08/17 Kimi Ayala MD [facility] Jeanie Mendiola [address] [address] Cardiology 12/09/23 Sophia Castillo APRN.CHILDB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 [facility] [place] [address] Airline Managerial Supervisor Family Medicine 03/20/24 Deion Russell APRN.CHILDB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 [facility] [place], [place] [id number] Airline Managerial Supervisor Family Medicine 03/29/24 Mat Puncher Relationship Specialty Start Date End Date Edmundo Cruz MD [address] [place], [place] [id number] PCP - General Family Medicine 02/06/15 Liang Hanna MD [address] [place], [place] 485451 Neurology 10/08/17 Da De La Rosa MD [facility] JE[address]IE O[address]LE [address] [address] Bioprocessing Manufacturing Technician Cardiology 10/08/17 Kimi Morris DO [address] 1467608 Neurology 10/08/17 Kimi Ayala MD [address] Jeanie Mendiola [address] [address] Cardiology 12/09/23 Sophia Castillo APRN.CHILDB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 [address] [place], [place] 922231 [place] 03/20/24 Deion Russell APRN.CHILDB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 [address] [place] [address] [facility] 03/29/24 Mat Puncher Relationship Specialty Start Date End Date Edmundo Cruz MD [address] [place], [place] [id number] PCP - General Family Medicine 02/06/15 Liang Hanna MD [address] [place] [address] Neurology 10/08/17 Da De La Rosa MD [address] [address] Bioprocessing Manufacturing Technician Cardiology 10/08/17 Kimi Morris DO [address]IE [address] [id number] Neurology 10/08/17 Kimi Ayala MD [address] [address] Cardiology 12/09/23 Sophia Castillo APRN.CHILDB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 [address] [place] [address] Airline Managerial Supervisor [facility] 03/20/24 Deion Russell APRN.CHILDB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 [address] [place] [address] Airline Managerial Supervisor [facility] 03/29/24 Mat Puncher Relationship Specialty Start Date End Date Edmundo Cruz MD [address] [place], [place] [id number] PCP - General Family Medicine 02/06/15 [place] [address] [place] [address] Neurology 10/08/17 Da De La Rosa MD [address] [address] Bioprocessing Manufacturing Technician Cardiology 10/08/17 Kimi Morris DO [address] [address] Neurology 10/08/17 Kimi Ayala MD [address] [address] Cardiology 12/09/23 Sophia Castillo APRN.CHILDB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 [address] [place], [place] [id number] Airline Managerial Supervisor [facility] 03/20/24 Deion Russell APRN.CHILDB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 [address] [place] [address] [facility] 03/29/24 Mat Puncher Relationship Specialty Start Date End Date Edmundo Cruz MD [address] [place], [place] 048631 PCP - General Family Medicine 02/06/15 Liang Hanna MD [address] [place] [address] Neurology 10/08/17 Da De La Rosa MD [address] [address] Bioprocessing Manufacturing Technician Cardiology 10/08/17 Kimi Morris DO [address] [address] Neurology 10/08/17 Kimi Ayala MD [address] [address] Cardiology 12/09/23 Sophia Castillo APRN.CHILDB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 [address] [place] [address] [facility] 03/20/24 Deion Russell APRN.CHILDB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 [address] [place] [address] [facility] 03/29/24 Team Status: Active Member Role Status Dates Dr. Edmundo Cruz MD Primary Care Provider Active Team Status: Inactive Member Role Status Dates Dr. Edmundo Cruz MD Primary Care Provider Active Start: March 17, 2024 End: March 17, 2024 Dr. Edmundo Cruz MD Referring Provider Active Start: March 17, 2024 End: March 17, 2024 Dr. García Clemente MD Attending Provider Active Start: March 17, 2024 End: March 17, 2024 Team Status: Inactive Member Role Status Dates Dr. Edmundo Cruz MD Primary Care Provider Active Start: March 21, 2024 End: March 21, 2024 Dr. García Clemente MD Attending Provider Active Start: March 21, 2024 End: March 21, 2024 Dr. García Clemente MD Referring Provider Active Start: March 21, 2024 End: March 21, 2024 Team Status: Inactive Member Role Status Dates Dr. Edmundo Cruz MD Primary Care Provider Active Start: March 22, 2024 End: March 22, 2024 Dr. García Clemente MD Attending Provider Active Start: March 22, 2024 End: March 22, 2024 Dr. García Clemente MD Referring Provider Active Start: March 22, 2024 End: March 22, 2024 Team Status: Inactive Member Role Status Dates Dr. Edmundo Cruz MD Primary Care Provider Active Start: March 23, 2024 End: March 23, 2024 Dr. García Clemente MD Attending Provider Active Start: March 23, 2024 End: March 23, 2024 Dr. García Clemente MD Referring Provider Active Start: March 23, 2024 End: March 23, 2024 Team Status: Inactive Member Role Status Dates Dr. Edmundo Cruz MD Primary Care Provider Active Start: June 16, 2024 End: June 16, 2024 Dr. Dylan Coronado DO Attending Provider Active Start: June 16, 2024 End: June 16, 2024 Dr. Dylan Coronado DO Referring Provider Active Start: June 16, 2024 End: June 16, 2024 Mat Puncher Relationship Specialty Start Date End Date Edmundo Cruz MD [address] [place] [address] PCP - General Family Medicine 02/06/15 Liang Hanna MD [address] [place], [place] 738001 Neurology 10/08/17 Da De La Rosa MD [address] [facility] [address] [place] [address] Bioprocessing Manufacturing Technician Cardiology 10/08/17 Kimi Morris DO [address] [facility] [address] [place] [address] Neurology 10/08/17 Kimi Ayala MD [address] [address] Cardiology 12/09/23 Sophia Castillo APRN.CHILDB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 [address] [place] [address] Airline Managerial Supervisor [facility] 03/20/24 Deion Russell APRN.CHILDB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 [address] [place], [place] [id number] Airline Managerial Supervisor [facility] 03/29/24 Team Status: Inactive Member Role Status Dates Dr. Edmundo Cruz MD Primary Care Provider Active Start: July 21, 2024 End: July 21, 2024 Dr. Edmundo Cruz MD Referring Provider Active Start: July 21, 2024 End: July 21, 2024 Dr. García Clemente MD Attending Provider Active Start: July 21, 2024 End: July 21, 2024 Team Status: Inactive Member Role Status Dates Dr. Edmundo Cruz MD Primary Care Provider Active Start: July 21, 2024 End: July 21, 2024 Dr. García Clemente MD Attending Provider Active Start: July 21, 2024 End: July 21, 2024 Dr. García Clemente MD Referring Provider Active Start: July 21, 2024 End: July 21, 2024 Mat Puncher Relationship Specialty Start Date End Date Edmundo Cruz MD [address] [place], [place] 018161 PCP - General Family Medicine 02/06/15 Liang Hanna MD [address] [place], [place] 867251 Neurology 10/08/17 Da De La Rosa MD [address] [address] Bioprocessing Manufacturing Technician Cardiology 10/08/17 Kimi Morris DO [address] [id number] Neurology 10/08/17 Kimi Ayala MD [address] [address] Cardiology 12/09/23 Sophia Castillo, CHIEF YEOMAN.CHILDB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 [address] [address] Airline Managerial Supervisor Family Medicine 03/20/24 Deion Russell, CHIEF YEOMAN.CHILDB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 [address] [place], [place] [id number] Airline Managerial Supervisor Family Medicine 03/29/24 Mat Puncher Relationship Specialty Start Date End Date Edmundo Cruz MD [address] [place], [place] [id number] PCP - General Family Medicine 02/06/15 Liang Hanna MD [address] [place], [place] 120201 Neurology 10/08/17 Da De La Rosa MD [address] 1068508 Bioprocessing Manufacturing Technician Cardiology 10/08/17 Kimi Morris DO [address] [id number] Neurology 10/08/17 Kimi Ayala MD [address] [address] Cardiology 12/09/23 Sophia Castillo APRN.CHILDB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 [address] [address] Airline Managerial Supervisor Family Medicine 03/20/24 Deion Russell APRN.CHILDB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 [address] [place] [address] Airline Managerial Supervisor [facility] 03/29/24 Mat Puncher Relationship Specialty Start Date End Date Edmundo Cruz MD [address] [place] [address] PCP - General Family Medicine 02/06/15 Liang Hanna MD [address] [place] [address] Neurology 10/08/17 Da De La Rosa MD [address] [id number] Bioprocessing Manufacturing Technician Cardiology 10/08/17 Kimi Morris DO [address] [id number] Neurology 10/08/17 Kimi Ayala MD [address] [address] Cardiology 12/09/23 Sophia Castillo APRN.CHILDB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 [address] [address] [place] 03/20/24 08/24/24 Deion Russell APRN.CHILDB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 [address] [place], [place] 798091 Airline Managerial [place] 03/29/24 Team Status: Inactive Member Role Status Dates Dr. Edmundo Cruz MD Primary Care Provider Active Start: August 25, 2024 End: August 25, 2024 Dr. Dylan Coronado DO Attending Provider Active Start: August 25, 2024 End: August 25, 2024 Dr. Dylan Coronado DO Referring Provider Active Start: August 25, 2024 End: August 25, 2024 Mat Puncher Relationship Specialty Start Date End Date Edmundo Cruz MD [address] [place], [place] [id number] PCP - General Family Medicine 02/06/15 Liang Hanna MD [address] [place] [address] Neurology 10/08/17 Da De La Rosa MD [address] [id number] Bioprocessing Manufacturing Technician Cardiology 10/08/17 Kimi Morris DO [address] [address] Neurology 10/08/17 Kimi Ayala MD [address] [address] Cardiology 12/09/23 Deion Russell APRN.CNP [address] [place], [place] 537581 Airline Managerial Supervisor Family Medicine 03/29/24 Team Status: Inactive Member Role Status Dates Dr. Edmundo Cruz MD Primary Care Provider Active Start: September 09, 2024 End: September 09, 2024 Dr. Edmundo Cruz MD Referring Provider Active Start: September 09, 2024 End: September 09, 2024 Kathy Dobbins TELECOMMUNICATION SYSTEMS DESIGNER, TELECOMMUNICATION SYSTEMS DESIGNER-C Attending Provider Active Start: September 09, 2024 End: September 09, 2024 Mat Puncher Relationship Specialty Start Date End Date Edmundo Cruz MD [address] [place] [address] PCP - General Family Medicine 02/06/15 Liang Hanna MD [address] [place] [address] Neurology 10/08/17 Da De La Rosa MD [address] [id number] Bioprocessing Manufacturing Technician Cardiology 10/08/17 Kimi Morris DO [address] [address] Neurology 10/08/17 Kimi Ayala MD [address] [address] Cardiology 12/09/23 Deion Russell APRN.CHILDB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 [address] [place], [place] 458421 Airline Managerial Supervisor Family Medicine 03/29/24 Mat Puncher Relationship Specialty Start Date End Date Edmundo Cruz MD [address] [place], [place] 105101 PCP - General Family Medicine 02/06/15 Liang Hanna MD [address] [place] [address] Neurology 10/08/17 Da De La Rosa MD [address] [id number] Bioprocessing Manufacturing Technician Cardiology 10/08/17 Kimi Morris DO [address] [address] Neurology 10/08/17 Kimi Ayala MD [address] [address] Cardiology 12/09/23 Sophia Castillo APRN.CHILDB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 [address] [phone] Airline Managerial Supervisor Family Medicine 03/20/24 08/24/24 Deion Russell APRN.CHILDB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 [address] [place] [address] Airline Managerial Supervisor [facility] 03/29/24 Mat Puncher Relationship Specialty Start Date End Date Edmundo Cruz MD [address] [place] [phone] PCP - General Family Medicine 02/06/15 Liang Hanna MD [address] [place], [place] 657731 Neurology 10/08/17 Da De La Rosa MD [address] [address] Bioprocessing Manufacturing Technician Cardiology 10/08/17 Kimi Morris DO [address] [id number] Neurology 10/08/17 Kimi Ayala MD [address] [phone] Cardiology 12/09/23 Deion Russell APRN.CHILDB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 [address] [place] [address] Airline Managerial Supervisor [facility] 03/29/24 Mat Puncher Relationship Specialty Start Date End Date Edmundo Cruz MD [address] [place] [address] PCP - General Family Medicine 02/06/15 Liang Hanna MD [address] [place], [place] 097491 Neurology 10/08/17 Da De La Rosa MD [address] [address] Bioprocessing Manufacturing Technician Cardiology 10/08/17 Kimi Morris DO 0 [address] [address] Neurology 10/08/17 Kimi Ayala MD [address] [address] Cardiology 12/09/23 Deion Russell APRN.CHILDB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 [address] [place], [place] 199751 Airline Managerial Supervisor Family Medicine 03/29/24 Mat Puncher Relationship Specialty Start Date End Date Edmundo Cruz MD [address] [place] [address] PCP - General Family Medicine 02/06/15 Liang Hanna MD [address] [place], [place] 579891 Neurology 10/08/17 Da De La Rosa MD [address] [address] Bioprocessing Manufacturing Technician Cardiology 10/08/17 Kimi Morris DO [address] [address] Neurology 10/08/17 Kimi Ayala MD [address] [address] Cardiology 12/09/23 Deion Russell APRN.CHILDB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 [address] [place], [place] 384771 Airline Managerial Supervisor Family Medicine 03/29/24 Mat Puncher Relationship Specialty Start Date End Date Edmundo Cruz MD [address] [place], [place] [id number] PCP - General Family Medicine 02/06/15 Liang Hanna MD [address] [place] [address] Neurology 10/08/17 Da De La Rosa MD [address] [phone] Bioprocessing Manufacturing Technician Cardiology 10/08/17 Kimi Morris DO [address] [address] Neurology 10/08/17 Kimi Ayala MD [address] [address] Cardiology 12/09/23 Sophia Castillo APRN.CHILDB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 [address] [phone] Airline Managerial Supervisor [facility] 03/20/24 08/24/24 Deion Russell APRN.CHILDB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 [address] [place], [place] 287111 Airline Managerial Supervisor [facility] 03/29/24 Mat Puncher Relationship Specialty Start Date End Date Edmundo Cruz MD [address] [place], [place] 098381 PCP - General Family Medicine 02/06/15 Liang Hanna MD [address] [place], [place] 998851 Neurology 10/08/17 Da De La Rosa MD [address] [address] Bioprocessing Manufacturing Technician Cardiology 10/08/17 Kimi Morris DO [address] [address] Neurology 10/08/17 Kimi Ayala MD [address] [phone] Cardiology 12/09/23 Deion Russell APRN.CHILDB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 [address] [place] [address] Airline Managerial Supervisor [facility] 03/29/24 Mat Puncher Relationship Specialty Start Date End Date Edmundo Cruz MD [address] [place] [address] PCP - General Family Medicine 02/06/15 Liang Hanna MD [address] [place], [place] 748371 Neurology 10/08/17 Da De La Rosa MD [address] [address] Bioprocessing Manufacturing Technician Cardiology 10/08/17 Kimi Morris DO 0 [address] [address] Neurology 10/08/17 Kimi Ayala MD 0 [address] [address] Cardiology 12/09/23 Deion Russell APRN.CHILDB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 [address] [place] [address] Airline Managerial Supervisor Family Medicine 03/29/24 Mat Puncher Relationship Specialty Start Date End Date Edmundo Cruz MD [address] [place] [address] PCP - General Family Medicine 02/06/15 Liang Hanna MD [address] [place], [place] 549791 Neurology 10/08/17 Da De La Rosa MD 0 [address] [address] Bioprocessing Manufacturing Technician Cardiology 10/08/17 Kimi Morris DO [address] [address] Neurology 10/08/17 Kimi Ayala MD [address] [facility] [address] [place] [phone] Cardiology 12/09/23 Deion Russell APRN.CHILDB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 [address] [place] [address] Airline Managerial Supervisor Family Medicine 03/29/24 Goals (unrecognized section and content) Goals may be documented in a n alternate sectionGoals may be documented in an alternate sectionGoals may be documented in an alternate sectionGoals may be documented in an alternate sectionGoals may be documented in an alternate sectionGoals may be documented in an alternate sectionGoals may be documented in an alternate sectionGoals may be documented in an alternate sectionGoals may be documented in an alternate sectionGoals may be documented in an alternate sectionGoals may be documented in an alternate sectionGoals may be documented in an alternate sectionGoals may be documented in an alternate sectionGoals may be documented in an alternate sectionGoals may be documented in an alternate section FOR RECORDS PERTAINING TO PATIENTS WHO ARE [...] BE BASED ON THE PRIMARY CLINICAL RECORDS. [email or web address] provides no warranty or guarantee of the accuracy or completeness of information in this document.
[2025-01-30] MEDS: 0.9% NaCl Peripheral Flush Adult IV ×2 (12:48→14:58)
[2025-01-30] MEDS: 0.9% NaCl IVPB Med Flush (100mL) 15 ML IV (12:49)
[2025-01-30] MEDS: MethylPREDNISolone Sod Succ 1,000 MG in 0.9% Normal Saline (100mL Bag) 100 ML 100 MG IV (13:20)
[2025-01-30 14:53] VITALS: BP 123/65; PULSE 70; RESP 16; TEMP 36.3
== END 2025-01-30 23:59 | disposition home or self-care (01) ==
LOC: MEDOUTP 12:18
PROVIDERS: PCP Family Medicine; Referring Provider Psychiatry & Neurology Neurology; Visit Provider Psychiatry & Neurology Neurology
DX: G35.A Relapsing-remitting multiple sclerosis (principal)
CPT/HCPCS: 96366; 96365; A4216; J2919

== ENCOUNTER 2025-01-31 12:29 | Outpatient (CLI) | payer MEDICARE, SELFPAY ==
[2025-01-31 12:45] VITALS: BP 124/56; PULSE 99; RESP 16; TEMP 36.5; O2SAT 95
[2025-01-31] MEDS: 0.9% NaCl Peripheral Flush Adult IV ×2 (12:50→14:30)
[2025-01-31] MEDS: 0.9% NaCl IVPB Med Flush (100mL) 15 ML IV (12:50)
[2025-01-31] MEDS: MethylPREDNISolone Sod Succ 1,000 MG in 0.9% Normal Saline (100mL Bag) 100 ML 100 MG IV (12:52)
[2025-01-31 14:33] VITALS: BP 132/55; PULSE 86; RESP 18
== END 2025-01-31 23:59 | disposition home or self-care (01) ==
LOC: MEDOUTP 12:29
PROVIDERS: PCP Family Medicine; Referring Provider Psychiatry & Neurology Neurology; Visit Provider Psychiatry & Neurology Neurology
DX: G35.A Relapsing-remitting multiple sclerosis (principal)
CPT/HCPCS: 96366; 96365; A4216; J2919

== ENCOUNTER 2025-02-01 10:37 | Outpatient (CLI) | payer MEDICARE, SELFPAY ==
[2025-02-01] MEDS: 0.9% NaCl Peripheral Flush Adult IV (10:51)
[2025-02-01] MEDS: 0.9% NaCl IVPB Med Flush (100mL) 15 ML IV (10:51)
[2025-02-01 10:52] VITALS: BP 128/52; PULSE 93; RESP 16; TEMP 36.4; O2SAT 97; BMI 40.2
[2025-02-01] MEDS: MethylPREDNISolone Sod Succ 1,000 MG in 0.9% Normal Saline (100mL Bag) 100 ML 100 MG IV (10:57)
[2025-02-01 12:41] VITALS: BP 137/81; PULSE 91; RESP 16; TEMP 36.6; O2SAT 96
== END 2025-02-01 23:59 | disposition home or self-care (01) ==
LOC: MEDOUTP 10:37
PROVIDERS: PCP Family Medicine; Referring Provider Psychiatry & Neurology Neurology; Visit Provider Psychiatry & Neurology Neurology
DX: G35.A Relapsing-remitting multiple sclerosis (principal)
CPT/HCPCS: 96366; 96365; A4216; J2919